=== PATIENT | male | born 1965 | race Caucasian/White ===

== ENCOUNTER 2016-10-17 13:20 | Emergency (ER) | payer MEDICARE ==
[2016-10-17 13:27] VITALS: O2SAT 96
[2016-10-17] MEDS ORDERED: ULTRAM 50 MG PO ONE (13:39)
--- NOTE | 2016-10-17 13:39 | ERPHSYRPT ---
- History of Present Illness Time Seen by Provider: 10/17/16 13:25 Source: patient Exam Limitations: clinical condition Patient Subjective Stated Complaint: PT REPORTS HE WAS EATING WHEN HE BEGAN HAVING RIGHT SIDED DENTAL PAIN MELANIA 30 MIN AGO Triage Nursing Assessment: PT PINK WARM ET DRY-DENTAL CARRIES NOTED-NO SWELLING NOTED Physician History: PATIENT COMPLAINS OF RIGHT UPPER TOOTHACHE WHILE EATING. DENIES FACIAL PAIN, SWELLING, DIFFICULTY SWALLOWING OR BREATHING. Timing/Duration: abrupt onset Severity: moderate ENT Location: dental Prearrival Treatment: no prearrival treatment Modifying Factors: Improves With: other (CHEWING FOOD) Associated Symptoms: tooth pain Allergies/Adverse Reactions: No Known Drug Allergies Allergy (Verified 10/17/16 13:27) Home Medications: Senna 8.6 mg [Senokot 8.6 mg] 17.2 mg PO DAILY 01/11/15 [History] Solifenacin Succinate [Vesicare] 10 mg PO DAILY 01/11/15 [History] Aspirin 81 gm Chew [Baby Aspirin 81 mg Chew] 81 mg PO DAILY 03/20/15 [ History] Metformin HCl 1000 mg [Glucophage 1000 MG] 1,000 mg PO BID 05/17/15 [History] Metoclopramide HCl 10 mg [Reglan 10 MG] 10 mg PO TID 05/17/15 [History] Carvedilol 3.125 mg [Coreg 3.125 MG] 12.5 mg PO BID 07/03/15 [History] Magnesium 250 mg PO DAILY 07/03/15 [History] Nitroglycerin [Nitrostat] 0.4 mg SL Q5MIN PRN MR X 3 PRN 07/03/15 [History] Potassium Gluconate 595 mg PO DAILY 07/03/15 [History] Amlodipine Besylate 5 mg [Norvasc 5 mg] 5 mg PO DAILY 11/17/15 [History] Chlorthalidone 25 mg PO DAILY 11/17/15 [History] Insulin Aspart [Novolog Flexpen] 20 units SQ AC 11/17/15 [History] Ranitidine HCl [Zantac 75] 150 mg PO BID 11/17/15 [History] Esomeprazole Magnesium [Nexium] 40 mg PO DAILY 02/07/16 [History] Insulin Aspart [Novolog Flexpen] 110 unit SQ HS 02/07/16 [History] Hx Tetanus, Diphtheria Vaccination/Date Given: Yes Hx Influenza Vaccination/Date Given: No Hx Pneumococcal Vaccination/Date Given: No Immunizations Up to Date: Yes - Review of Systems Constitutional: No Fever, No Chills Eyes: No Symptoms Ears, Nose, & Throat: Mouth Pain Respiratory: No Symptoms, No Cough, No Dyspnea Cardiac: No Symptoms, No Chest Pain, No Edema, No Syncope Abdominal/Gastrointestinal: No Abdominal Pain, No Nausea, No Vomiting, No Diarrhea Genitourinary Symptoms: No Dysuria Musculoskeletal: No Back Pain, No Neck Pain Skin: No Rash Neurological: No Symptoms, No Dizziness, No Focal Weakness, No Sensory Changes Psychological: No Symptoms Endocrine: No Symptoms All Other Systems: Reviewed and Negative - Past Medical History Pertinent Past Medical History: Yes Neurological History: Seizures, Stroke ENT History: No Pertinent History Cardiac History: Angina, Coronary Artery Disease, High Cholesterol, Hypertension , Myocardial Infarction ([place]), Other Respiratory History: Asthma, Bronchitis, Pneumonia, Sleep Apnea, Other Endocrine Medical History: Diabetes Type II Musculoskeletal History: Arthritis, Fractures GI Medical History: Esophageal Disorder, GERD History: No Pertinent History Psycho-Social History: Anxiety, Depression, Panic Disorder Male Reproductive Disorders: No Pertinent History - Past Surgical History Past Surgical History: Yes Neuro Surgical History: No Pertinent History Cardiac: Cardiac Catheterization, Cardiac Stent Respiratory: No Pertinent History Gastrointestinal: No Pertinent History Genitourinary: No Pertinent History Musculoskeletal: No Pertinent History Male Surgical History: No Pertinent History Other Surgical History: uvula removed - Social History Smoking Status: Former smoker Exposure to second hand smoke: No Alcohol Use: None Drug Use: none Patient Lives Alone: No - Nursing Vital Signs Nursing Vital Signs: Initial Vital Signs Temperature 98.0 F Temperature Source Oral Pulse Rate 69 Respiratory Rate 22 Blood Pressure 122/66 Pain Intensity 6 - Physical Exam General Appearance: no apparent distress, alert Eye Exam: bilateral eye: normal inspection, PERRL, EOMI Ear Exam: bilateral ear: auricle normal, canal normal, TM normal Nasal Exam: normal inspection Throat Exam: pharynx normal, dental tenderness (WITH CARIES), moist mucus membranes, No tonsillar exudate Neurologic Exam: alert, oriented x 3, No motor deficits SpO2 Interpretation: normal SpO2: 96 Oxygen Delivery: Room Air Ordered Tests: Medication Summary Discontinued Medications Generic Name Dose Route Start Last Admin Trade Name Freq PRN Reason Stop Dose Admin Tramadol HCl 50 mg 10/17/16 13:39 Ultram 50 Mg PO 10/17/16 13:40 STAT ONE - Progress Progress: pain not gone completely Progress Note: 10/17/16 13:48 PATIENT GIVEN ULTRAM 50MG ORALLY Counseled pt/family regarding: diagnosis, need for follow-up - Departure Time of Disposition: 14:50 Departure Disposition: Home Clinical Impression: DENTALGIA Condition: Stable Critical Care Time: No Additional Instructions: ANTIBIOTIC AUGMENTIN 875MG TWICE DAILY FOR 10 DAYS. ULTRAM 50MG EVERY 4 HOURS FOR PAIN NEEDED. FOLLOWUP WITH YOUR DENTIST FOR EVALUATION. Prescriptions: Tramadol HCl 50 mg [Ultram 50 mg] 50 mg PO Q4HPRN PRN #20 tablet PRN Reason: Pain Amox Tr/Potass Clav. 875 mg [Augmentin 875-125 Tablet] 875 mg PO BID #20 tablet
[2016-10-17] MEDS ORDERED: ULTRAM 50 MG ONE (13:41)
[2016-10-17 14:02] VITALS: BP 120/67; PULSE 70
== END 2016-10-17 14:01 | disposition home or self-care (01) ==
LOC: ED 13:20
DX: K08.89 Other specified disorders of teeth and supporting structures (principal)
CPT/HCPCS: 99282

== ENCOUNTER 2016-12-11 14:39 | Emergency (ER) | payer MEDICARE ==
[2016-12-11] MEDS ORDERED: BABY ASPIRIN 81 MG CHEW PO ONE (14:45)
[2016-12-11] MEDS ORDERED: Sodium Chloride 0.9% 1000 ML 1,000 ML IV SCH (14:45)
[2016-12-11] MEDS ORDERED: NITRO-BID 2% UD PACKETS TOP ONE (14:45)
[2016-12-11] MEDS ORDERED: Sodium Chloride 0.9% 1000 ML 1,000 ML ONE (14:49)
[2016-12-11] MEDS ORDERED: BABY ASPIRIN 81 MG CHEW ONE (14:49)
[2016-12-11] MEDS ORDERED: NITRO-BID 2% UD PACKETS ONE (14:49)
--- NOTE | 2016-12-11 14:52 | ERPHSYRPT ---
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; he is a diabetic but doesn't smoke; no other associated symptoms; no travel; no alcohol or drugs; rates it Timing/Duration: today (rate), hour(s) (s i1t as/ a 26-7), sudden Activities at Onset: emotional stress Quality: tightness Location: substernal Chest Pain Radiation: no radiation Severity of Pain-Max: moderate Severity of Pain-Current: moderate Modifying Factors: Improves With: nothing Associated Symptoms: denies symptoms Prior Chest Pain/Cardiac Workup: no prior chest pain Nitro Today/Relief: no nitro taken today, provided by ED Aspirin Treatment Today: no aspirin today, provided by ED Allergies/Adverse Reactions: No Known Drug Allergies Allergy (Verified 12/11/16 14:47) Home Medications: Solifenacin Succinate [Vesicare] 10 mg PO DAILY 01/11/15 [History] Aspirin 81 gm Chew [Baby Aspirin 81 mg Chew] 81 mg PO DAILY 03/20/15 [ History] Metformin HCl 1000 mg [Glucophage 1000 MG] 1,000 mg PO BID 05/17/15 [History] Metoclopramide HCl 10 mg [Reglan 10 MG] 10 mg PO TID 05/17/15 [History] Carvedilol 3.125 mg [Coreg 3.125 MG] 25 mg PO BID 07/03/15 [History] Magnesium 400 mg PO DAILY 07/03/15 [History] Nitroglycerin [Nitrostat] 0.4 mg SL Q5MIN PRN MR X 3 PRN 07/03/15 [History] Amlodipine Besylate 5 mg [Norvasc 5 mg] 10 mg PO DAILY 11/17/15 [History] Dexlansoprazole [Dexilant] 60 mg PO DAILY 12/11/16 [History] Empagliflozin [Jardiance] 25 mg PO DAILY 12/11/16 [History] Hydroxyzine HCl 25 mg [Atarax 25 mg] 25 mg PO HS 12/11/16 [History] Insulin Aspart [NovoLOG Insulin] 1 unit SQ UD 12/11/16 [History] Linaclotide [Linzess] 290 mcg PO DAILY 12/11/16 [History] Lisinopril [Zestril] 40 mg PO DAILY 12/11/16 [History] Hx Tetanus, Diphtheria Vaccination/Date Given: Yes Hx Influenza Vaccination/Date Given: No Hx Pneumococcal Vaccination/Date Given: No - Review of Systems Constitutional: No Symptoms Eyes: No Symptoms Ears, Nose, & Throat: No Symptoms Respiratory: No Cough, No Dyspnea, No Wheezing Cardiac: Chest Pain, No Edema, No Palpitations, No Syncope Abdominal/Gastrointestinal: No Abdominal Pain, No Nausea, No Vomiting, No Diarrhea Genitourinary Symptoms: No Symptoms Musculoskeletal: No Symptoms Skin: No Symptoms Neurological: No Symptoms Psychological: No Symptoms Endocrine: No Symptoms Hematologic/Lymphatic: No Symptoms Immunological/Allergic: No Symptoms - Past Medical History Pertinent Past Medical History: Yes Neurological History: Seizures, Stroke ENT History: No Pertinent History Cardiac History: Angina, Coronary Artery Disease, High Cholesterol, Hypertension , Myocardial Infarction ([place]), Other Respiratory History: Asthma, Bronchitis, Pneumonia, Sleep Apnea, Other Endocrine Medical History: Diabetes Type II Musculoskeletal History: Arthritis, Fractures GI Medical History: Esophageal Disorder, GERD History: No Pertinent History Psycho-Social History: Anxiety, Depression, Panic Disorder Male Reproductive Disorders: No Pertinent History - Past Surgical History Past Surgical History: Yes Neuro Surgical History: No Pertinent History Cardiac: Cardiac Catheterization, Cardiac Stent Respiratory: No Pertinent History Gastrointestinal: No Pertinent History Genitourinary: No Pertinent History Musculoskeletal: No Pertinent History Male Surgical History: No Pertinent History Other Surgical History: uvula removed - Social History Smoking Status: Former smoker Exposure to second hand smoke: No Alcohol Use: None Drug Use: none Patient Lives Alone: No Significant Family History: heart disease, diabetes, hypertension - Physical Exam General Appearance: moderate distress, alert, obese Eye Exam: PERRL/EOMI, eyes nml inspection, other (fundi benign without papilledema), No photophobia Ears, Nose, Throat Exam: normal ENT inspection, TMs normal, pharynx normal, moist mucous membranes Neck Exam: normal inspection, non-tender, supple, full range of motion, No meningismus, No carotid bruit, No JVD Respiratory Exam: normal breath sounds, lungs clear, airway intact, No chest tenderness, No respiratory distress, No crackles/rales, No rhonchi, No wheezing Cardiovascular Exam: regular rate/rhythm, normal heart sounds, normal peripheral pulses, capillary refill 2-3 sec, No murmur Gastrointestinal/Abdomen Exam: soft, normal bowel sounds, No tenderness, No distention, No guarding, No pulsatile mass, No rebound, No organomegaly Rectal Exam: deferred Back Exam: normal inspection, normal range of motion, No CVA tenderness Extremity Exam: normal inspection, normal range of motion, No prince's sign, No pedal edema Neurologic Exam: alert, oriented x 3, cooperative, 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, normal mood/affect, nml cerebellar function, nml station & gait Skin Exam: normal color, warm, dry, No rash, No petechiae, No jaundice, No cyanosis SpO2 Interpretation: normal SpO2: 99 Oxygen Delivery: Room Air - Course Nursing assessment & vital signs reviewed: Yes EKG Interpreted by Me: RATE (69), Sinus Rhythm, NORMAL AXIS, NORMAL INTERVALS, NORMAL QRS, NORMAL ST-T, Other (unchanged when compared to EKG from 11/17/2015) - Radiology Exams Chest X-ray Interpretation: Reviewed by me, Teleradiologist Report, Negative, No Pneumonia, No Pneumothorax, Nml Heart Size, No Infiltrates, Nml Mediastinum Ordered Tests: Active Orders 24 hr Category Date Time Status Forepart Laster STAT Care 12/11/16 14:45 Active EKG-ER Only STAT Care 12/11/16 15:01 Active IV Insertion STAT Care 12/11/16 14:45 Active Pulse Oximetry (ED) STAT Care 12/11/16 14:45 Active CHEST 1 VIEW (PORTABLE) Stat Exams 12/11/16 14:45 Completed CBC W DIFF Stat Lab 12/11/16 14:57 Completed CMP Stat Lab 12/11/16 14:57 Completed NT PRO BNP Stat Lab 12/11/16 14:57 Completed PROTIME WITH INR Stat Lab 12/11/16 14:57 Completed TROPONIN Q3H Lab 12/11/16 14:45 Completed TROPONIN Q3H Lab 12/11/16 17:45 Ordered TROPONIN Q3H Lab 12/11/16 20:45 Ordered TROPONIN Q3H Lab 12/11/16 23:45 Ordered TROPONIN Q3H Lab 12/12/16 02:45 Ordered Medication Summary Generic Name Dose Route Start Last Admin Trade Name Uriel PRN Reason Stop Dose Admin Sodium Chloride 1,000 mls @ 50 mls/hr 12/11/16 14:45 12/11/16 14:55 Sodium Chloride 0.9% 1000 Ml IV 01/10/17 14:44 50 mls/hr .Q20H LACY Administration Discontinued Medications Generic Name Dose Route Start Last Admin Trade Name Uriel PRN Reason Stop Dose Admin Aspirin 324 mg 12/11/16 14:45 12/11/16 14:55 Baby Aspirin 81 Mg Chew PO 12/11/16 14:46 324 mg STAT ONE Administration Aspirin Confirm 12/11/16 14:49 Baby Aspirin 81 Mg Chew Administered 12/11/16 14:50 Dose 324 mg .ROUTE .STK-MED ONE Sodium Chloride Confirm 12/11/16 14:49 Sodium Chloride 0.9% 1000 Ml Administered 12/11/16 14:50 Dose 1,000 mls @ ud .ROUTE .STK-MED ONE Nitroglycerin 1 gm 12/11/16 14:45 12/11/16 14:55 Nitro-Bid 2% Ud Packets TOP 12/11/16 14:46 1 gm STAT ONE Administration Nitroglycerin Confirm 12/11/16 14:49 Nitro-Bid 2% Ud Packets Administered 12/11/16 14:50 Dose 1 gm .ROUTE .STK-MED ONE Lab/Rad Data: Laboratory Result Diagrams 12/11/16 14:57 12/11/16 14:57 Laboratory Results 12/11/16 12/11/16 12/11/16 Range/Units 14:57 14:57 14:57 WBC 8.2 (4.0-10.5) K/mm3 RBC 5.23 (4.1-5.6) M/mm3 Hgb 14.6 (12.5-18.0) gm/dl Hct 43.3 (42-50) % MCV 82.8 (78-100) fl MCH 27.9 (26-32) pg MCHC 33.7 (32-36) g/dl RDW 14.7 H (11.5-14.0) % Plt Count 227 (150-450) K/mm3 MPV 9.9 H (6-9.5) fl Gran % 65.3 (36.0-66.0) % Lymphocytes % 24.1 (24.0-44.0) % Monocytes % 8.9 (0.0-12.0) % Eosinophils % 1.2 (0.00-5.0) % Basophils % 0.5 (0.0-0.4) % Basophils # 0.04 (0-0.4) INR 1.28 (0.8-3.0) Sodium 140 (136-145) mEq/L Potassium 4.2 (3.5-5.1) mEq/L Chloride 104 (98-107) mEq/L Carbon Dioxide 23.1 (21-32) mEq/L Anion Gap 17.0 H (5-15) MEQ/L BUN 18 (9-20) mg/dL Creatinine 1.01 (0.55-1.30) mg/dl Estimated GFR > 60 ML/MIN Glucose 109 (70-110) MG/DL Calcium 9.5 (8.5-10.1) mg/dL Total Bilirubin 0.2 (0.2-1.0) mg/dL AST 16 (15-37) U/L ALT 29 (12-78) U/L Alkaline Phosphatase 52 (46-116) U/L Troponin I (0.000-0.056) ng/ml NT-Pro-B Natriuret Pep 75 (0-125) pg/ml Serum Total Protein 7.7 (6.4-8.2) gm/dL Albumin 4.1 (3.4-5.0) g/dL 12/11/16 Range/Units 14:45 WBC (4.0-10.5) K/mm3 RBC (4.1-5.6) M/mm3 Hgb (12.5-18.0) gm/dl Hct (42-50) % MCV (78-100) fl MCH (26-32) pg MCHC (32-36) g/dl RDW (11.5-14.0) % Plt Count (150-450) K/mm3 MPV (6-9.5) fl Gran % (36.0-66.0) % Lymphocytes % (24.0-44.0) % Monocytes % (0.0-12.0) % Eosinophils % (0.00-5.0) % Basophils % (0.0-0.4) % Basophils # (0-0.4) INR (0.8-3.0) Sodium (136-145) mEq/L Potassium (3.5-5.1) mEq/L Chloride (98-107) mEq/L Carbon Dioxide (21-32) mEq/L Anion Gap (5-15) MEQ/L BUN (9-20) mg/dL Creatinine (0.55-1.30) mg/dl Estimated GFR ML/MIN Glucose (70-110) MG/DL Calcium (8.5-10.1) mg/dL Total Bilirubin (0.2-1.0) mg/dL AST (15-37) U/L ALT (12-78) U/L Alkaline Phosphatase (46-116) U/L Troponin I < 0.017 (0.000-0.056) ng/ml NT-Pro-B Natriuret Pep (0-125) pg/ml Serum Total Protein (6.4-8.2) gm/dL Albumin (3.4-5.0) g/dL reviewed - Progress Progress: improved (after time), re-examined (After medications) Air Movement: good Progress Note: 12/11/16 14:52 IV started; EKG WNL; aspirin and nitroglycerin given; vital signs and pulse ox okay; labs and x-ray pending; we'll monitor and recheck 12/11/16 15:47 rechecked adn feeling better; no complaints; treatment plan and d/c instructions given Blood Culture(s) Obtained: No Antibiotics given: No Counseled pt/family regarding: lab results, diagnosis, need for follow-up, rad results - Departure Time of Disposition: 15:48 Departure Disposition: Home Clinical Impression: Chest pain Condition: Good Critical Care Time: No Referrals: EDUARDO ROMANO [Primary Care Provider] - Instructions: Atypical Chest Pain Additional Instructions: Follow-up with family doctor as directed. Call for appointment. Return if any problems. If you smoke please stop. Call or follow up with your family doctor for assistance if you need it to stop. Please wear your seatbelt when driving. Have a nice day. Thank you for allowing us to participate in your care today. :o) Dr Juan Luis Tobin
--- NOTE | 2016-12-11 15:08 | XRAY ---
Indication: Chest pain. Comparison: November 17, 2015. Portable chest unchanged again with scattered calcified granulomas. No focal infiltrate, consolidation, or large effusion. Heart is not enlarged. Bony thorax intact again with mild degenerative changes. Impression: Stable nonacute chest with chronic features.
[2016-12-11 15:13] LABS: INR 1.28 (0.8-3.0); PROTIME 14.2 SECONDS (8.83-12.87)
[2016-12-11 15:18] LABS: BASOPHIL % 0.5 % (0.0-0.4); Eosinophil % 1.2 % (0.00-5.0); Granulocytes % 65.3 % (36.0-66.0); Lymphocytes % 24.1 % (24.0-44.0); Mean Cell Volume 82.8 fl (78-100); Mean Corpuscular Hemoglobin 27.9 pg (26-32); Mean Platelet Volume 9.9 fl (6-9.5); Monocytes % 8.9 % (0.0-12.0); Platelet Count 227 K/mm3 (150-450); Red Blood Count 5.23 M/mm3 (4.1-5.6); Red Cell Distribution Width 14.7 % (11.5-14.0); White Blood Count 8.2 K/mm3 (4.0-10.5)
[2016-12-11 15:27] LABS: ALBUMIN 4.1 g/dL (3.4-5.0); ALKALINE PHOSPHATASE 52 U/L (46-116); BILIRUBIN,TOTAL 0.2 mg/dL (0.2-1.0); BLOOD UREA NITROGEN 18 mg/dL (9-20); CHLORIDE 104 mEq/L (98-107); Carbon Dioxide 23.1 mEq/L (21-32); Glucose 109 MG/DL (70-110); Potassium 4.2 mEq/L (3.5-5.1); SGOT/AST 16 U/L (15-37); SGPT/ALT 29 U/L (12-78); SODIUM 140 mEq/L (136-145); Total Protein 7.7 gm/dL (6.4-8.2)
[2016-12-11 15:55] VITALS: BP 116/67; PULSE 69; O2SAT 93
== END 2016-12-11 15:55 | disposition home or self-care (01) ==
LOC: ED 14:39
DX: R07.89 Other chest pain (principal); E11.9 Type 2 diabetes mellitus without complications; I25.10 Atherosclerotic heart disease of native coronary artery without angina pectoris; E78.00 Pure hypercholesterolemia, unspecified; I10 Essential (primary) hypertension; I25.2 Old myocardial infarction; Z79.899 Other long term (current) drug therapy; Z79.84 Long term (current) use of oral hypoglycemic drugs; Z79.4 Long term (current) use of insulin
CPT/HCPCS: 93041; 99284; 36000; 96360; 96361; 93005; 85610; 36415; 83880; 85025; 80053; 84484; 71010; A9270 ×2

== ENCOUNTER 2017-01-13 15:09 | Emergency (ER) | payer MEDICARE ==
[2017-01-13 15:20] VITALS: BP 111/54; PULSE 73; O2SAT 94
[2017-01-13] MEDS ORDERED: Sodium Chloride 0.9% 1000 ML 1,000 ML IV STA (15:25)
[2017-01-13] MEDS ORDERED: Sodium Chloride 0.9% 1000 ML 1,000 ML ONE (15:34)
[2017-01-13 15:41] LABS: BASOPHIL % 0.4 % (0.0-0.4); COMPLETE URINE MICROSCOPIC? YES; Collection Type VOID; Granulocytes % 62.3 % (36.0-66.0); Lymphocytes % 24.4 % (24.0-44.0); Mean Cell Volume 82.8 fl (78-100); Mean Corpuscular Hemoglobin 27.9 pg (26-32); Mean Platelet Volume 9.4 fl (6-9.5); Monocytes % 10.9 % (0.0-12.0); Ph 5.5 (5-6); Platelet Count 221 K/mm3 (150-450); Red Blood Count 5.16 M/mm3 (4.1-5.6); Red Cell Distribution Width 14.6 % (11.5-14.0); White Blood Count 7.2 K/mm3 (4.0-10.5)
[2017-01-13 15:51] LABS: Bacteria RARE /HPF (NEGATIVE); Epithelial Cells RARE /HPF (FEW); WBC 0-2 /HPF (0-5)
[2017-01-13 15:55] LABS: ALBUMIN 4.1 g/dL (3.4-5.0); ALKALINE PHOSPHATASE 60 U/L (46-116); ANION GAP 14.3 MEQ/L (5-15); BILIRUBIN,TOTAL 0.3 mg/dL (0.2-1.0); BLOOD UREA NITROGEN 17 mg/dL (9-20); CHLORIDE 107 mEq/L (98-107); Carbon Dioxide 25.9 mEq/L (21-32); Glucose 133 MG/DL (70-110); MAGNESIUM 1.9 mg/dL (1.8-2.4); Potassium 4.1 mEq/L (3.5-5.1); SGOT/AST 18 U/L (15-37); SGPT/ALT 29 U/L (12-78); SODIUM 143 mEq/L (136-145); Total Protein 7.6 gm/dL (6.4-8.2)
--- NOTE | 2017-01-13 16:03 | ERPHSYRPT ---
- History of Present Illness Time Seen by Provider: 01/13/17 15:59 Source: patient Exam Limitations: no limitations Patient Subjective Stated Complaint: dizziness since 0900 with movement Triage Nursing Assessment: dizziness since he got up this morning with change of position. c/o headache at base of head for past 2 hrs. sugars have been normal. c/o n/v/d. pupils mejia. bs 141. Physician History: dizziness since 0900 with movement. dizziness since he got up this morning with change of position. c/o headache at base of head for past 2 hrs. Prior Episodes: single episode today Timing/Duration: today Precipitating Factors: nausea (dizzy when moves eyes, eye hurts with lateral movements. No fever, chills, nausea vomiting), other (working outside today) Loss of Consciousness: no loss of consciousness Allergies/Adverse Reactions: No Known Drug Allergies Allergy (Verified 01/13/17 15:20) Home Medications: Solifenacin Succinate [Vesicare] 10 mg PO DAILY 01/11/15 [History] Metformin HCl 1000 mg [Glucophage 1000 MG] 1,000 mg PO BID 05/17/15 [History] Metoclopramide HCl 10 mg [Reglan 10 MG] 10 mg PO TID 05/17/15 [History] Carvedilol 3.125 mg [Coreg 3.125 MG] 25 mg PO BID 07/03/15 [History] Magnesium 400 mg PO BID 07/03/15 [History] Nitroglycerin [Nitrostat] 0.4 mg SL Q5MIN PRN MR X 3 PRN 07/03/15 [History] Amlodipine Besylate 5 mg [Norvasc 5 mg] 10 mg PO DAILY 11/17/15 [History] Dexlansoprazole [Dexilant] 60 mg PO DAILY 12/11/16 [History] Empagliflozin [Jardiance] 25 mg PO DAILY 12/11/16 [History] Hydroxyzine HCl 25 mg [Atarax 25 mg] 25 mg PO HS 12/11/16 [History] Insulin Aspart [NovoLOG Insulin] 1 unit SQ UD 12/11/16 [History] Linaclotide [Linzess] 290 mcg PO DAILY 12/11/16 [History] Lisinopril [Zestril] 40 mg PO DAILY 12/11/16 [History] Cetirizine HCl [Zyrtec] 10 mg PO DAILY 01/13/17 [History] Dulaglutide [Trulicity] 0.75 mg SQ UD 01/13/17 [History] Liraglutide [Victoza 2-Vasile] 1.2 mg SQ DAILY 01/13/17 [History] Hx Tetanus, Diphtheria Vaccination/Date Given: Yes Hx Influenza Vaccination/Date Given: No Hx Pneumococcal Vaccination/Date Given: No Immunizations Up to Date: Yes - Past Medical History Pertinent Past Medical History: Yes Neurological History: Seizures, Stroke ENT History: No Pertinent History Cardiac History: Angina, Coronary Artery Disease, High Cholesterol, Hypertension , Myocardial Infarction ([place]), Other Respiratory History: Asthma, Bronchitis, Pneumonia, Sleep Apnea, Other Endocrine Medical History: Diabetes Type II Musculoskeletal History: Arthritis, Fractures GI Medical History: Esophageal Disorder, GERD History: No Pertinent History Psycho-Social History: Anxiety, Depression, Panic Disorder Male Reproductive Disorders: No Pertinent History - Past Surgical History Past Surgical History: Yes Neuro Surgical History: No Pertinent History Cardiac: Cardiac Catheterization, Cardiac Stent Respiratory: No Pertinent History Gastrointestinal: No Pertinent History Genitourinary: No Pertinent History Musculoskeletal: No Pertinent History Male Surgical History: No Pertinent History Other Surgical History: uvula removed - Social History Smoking Status: Never smoker Exposure to second hand smoke: Yes Alcohol Use: None Drug Use: none Patient Lives Alone: Yes Significant Family History: heart disease, diabetes, hypertension - Review of Systems Constitutional: No Fever, No Chills, No Fatigue, No Lethargy, No Night Sweats, No Weakness, No Weight Loss Eyes: No Symptoms Ears, Nose, & Throat: No Symptoms, No Ear Pain, No Ear Discharge Respiratory: No Cough, No Dyspnea Cardiac: No Chest Pain, No Edema, No Syncope Abdominal/Gastrointestinal: No Abdominal Pain, No Nausea, No Vomiting, No Diarrhea Genitourinary Symptoms: No Dysuria Musculoskeletal: No Back Pain, No Neck Pain Skin: No Rash Neurological: Dizziness, No Focal Weakness, No Lethargy, No Paralysis, No Parasthesia, No Seizure, No Sensory Changes Psychological: No Symptoms Endocrine: No Symptoms All Other Systems: Reviewed and Negative Physical Exam - Nursing Vital Signs Nursing Vital Signs: Initial Vital Signs Temperature 97.9 F Temperature Source Oral Pulse Rate 73 Respiratory Rate 18 Blood Pressure [] 111/54 Pain Intensity 4 - [place] Coma Scale Best Eye Response ([place]): (4) open spontaneously Best Verbal Response (Elena): (5) oriented Best Motor Response ([place]): (6) obeys commands Elena Total: 15 - Physical Exam General Appearance: no apparent distress, alert Eye Exam: bilateral eye: PERRL, EOMI Ears, Nose, Throat Exam: normal ENT inspection, pharynx normal, moist mucous membranes Neck Exam: normal inspection, non-tender, supple, full range of motion Respiratory: normal breath sounds, lungs clear, No chest tenderness, No respiratory distress Cardiovascular: regular rate/rhythm, capillary refill <2 sec, No murmur, No pulse deficit Gastrointestinal: soft, No tenderness, No distention, No mass Back Exam: normal inspection, normal range of motion, No CVA tenderness, No vertebral tenderness Extremity Exam: normal inspection, normal range of motion, pelvis stable, No tenderness Mental Status: alert, oriented x 3, 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 Exam: normal speech, PERRL, No facial droop Coordination/Gait: normal finger to nose Motor/Sensory: no motor deficit, no sensory deficit, no pronator drift Skin Exam: normal color, warm, dry, No rash SpO2: 94 Oxygen Delivery: Room Air - Course Nursing assessment & vital signs reviewed: Yes EKG Interpreted by Me: Sinus Rhythm - Radiology Exams Chest X-ray Interpretation: Reviewed by me, Negative Ordered Tests: Active Orders 24 hr Category Date Time Status ACCUCHECK [Accucheck] STAT Care 01/13/17 15:33 Active 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 Care 01/13/17 15:25 Active EKG-ER Only STAT Care 01/13/17 15:25 Active IV Insertion STAT Care 01/13/17 15:32 Active Orthostatic Vital Signs STAT Care 01/13/17 15:33 Active CBC W DIFF Stat Lab 01/13/17 15:35 Completed CMP Stat Lab 01/13/17 15:35 Received Lactic Acid Urgent Lab 01/13/17 15:35 Completed MAGNESIUM Stat Lab 01/13/17 15:35 Received TROPONIN Stat Lab 01/13/17 15:35 Received UA W/ MICROSCOPIC Stat Lab 01/13/17 15:35 Completed Urine Triage Profile Stat Lab 01/13/17 15:35 Completed Medication Summary Generic Name Dose Route Start Last Admin Trade Name Freq PRN Reason Stop Dose Admin Sodium Chloride 1,000 mls @ 999 mls/hr 01/13/17 15:25 01/13/17 15:36 Sodium Chloride 0.9% 1000 Ml IV 01/13/17 16:25 999 mls/hr .Q1H1M STA Administration Discontinued Medications Generic Name Dose Route Start Last Admin Trade Name Uriel PRN Reason Stop Dose Admin Sodium Chloride Confirm 01/13/17 15:34 Sodium Chloride 0.9% 1000 Ml Administered 01/13/17 15:35 Dose 1,000 mls @ ud .ROUTE .STK-MED ONE Lab/Rad Data: Laboratory Result Diagrams 01/13/17 15:35 Laboratory Results 01/13/17 01/13/17 01/13/17 Range/Units 15:35 15:35 15:35 WBC 7.2 (4.0-10.5) K/mm3 RBC 5.16 (4.1-5.6) M/mm3 Hgb 14.4 (12.5-18.0) gm/dl Hct 42.7 (42-50) % MCV 82.8 (78-100) fl MCH 27.9 (26-32) pg MCHC 33.7 (32-36) g/dl RDW 14.6 H (11.5-14.0) % Plt Count 221 (150-450) K/mm3 MPV 9.4 (6-9.5) fl Gran % 62.3 (36.0-66.0) % Lymphocytes % 24.4 (24.0-44.0) % Monocytes % 10.9 (0.0-12.0) % Eosinophils % 2.0 (0.00-5.0) % Basophils % 0.4 (0.0-0.4) % Basophils # 0.03 (0-0.4) Lactic Acid 1.6 (0.4-2.0) Ur Collection Type Urine Color (YELLOW) Urine Appearance (CLEAR) Urine pH (5-6) Ur Specific [place] (1.005-1.025) Urine Protein (Negative) Urine Glucose (UA) (NEGATIVE) mg/dL Urine Ketones (NEGATIVE) Urine Nitrite (NEGATIVE) Urine Bilirubin (NEGATIVE) Urine Urobilinogen (0-1) mg/dL Urine WBC (Auto) (NEGATIVE) Urine RBC (Auto) (0-5) Bonilla/ul Urine Microscopic WBC (0-5) /HPF Ur Epithelial Cells (FEW) /HPF Urine Bacteria (NEGATIVE) /HPF Urine Opiates Level NEG. (NEGATIVE) Ur Methadone NEG. (NEGATIVE) Urine Barbiturates NEG. (NEGATIVE) Ur Phencyclidine (PCP) NEG. (NEGATIVE) Urine Amphetamine NEG. (NEGATIVE) U Benzodiazepine Level NEG. (NEGATIVE) Urine Cocaine NEG. (NEGATIVE) Urine Marijuana (THC) NEG. (NEGATIVE) Specimen Received 01/13/17 Range/Units 15:35 WBC (4.0-10.5) K/mm3 RBC (4.1-5.6) M/mm3 Hgb (12.5-18.0) gm/dl Hct (42-50) % MCV (78-100) fl MCH (26-32) pg MCHC (32-36) g/dl RDW (11.5-14.0) % Plt Count (150-450) K/mm3 MPV (6-9.5) fl Gran % (36.0-66.0) % Lymphocytes % (24.0-44.0) % Monocytes % (0.0-12.0) % Eosinophils % (0.00-5.0) % Basophils % (0.0-0.4) % Basophils # (0-0.4) Lactic Acid (0.4-2.0) Ur Collection Type VOID Urine Color YELLOW (YELLOW) Urine Appearance CLEAR (CLEAR) Urine pH 5.5 (5-6) Ur Specific [place] 1.010 (1.005-1.025) Urine Protein TRACE (Negative) Urine Glucose (UA) 500 (NEGATIVE) mg/dL Urine Ketones SMALL-15 (NEGATIVE) Urine Nitrite NEGATIVE (NEGATIVE) Urine Bilirubin NEGATIVE (NEGATIVE) Urine Urobilinogen 0.2 (0-1) mg/dL Urine WBC (Auto) NEGATIVE (NEGATIVE) Urine RBC (Auto) NEGATIVE (0-5) Bonilla/ul Urine Microscopic WBC 0-2 (0-5) /HPF Ur Epithelial Cells RARE (FEW) /HPF Urine Bacteria RARE (NEGATIVE) /HPF Urine Opiates Level (NEGATIVE) Ur Methadone (NEGATIVE) Urine Barbiturates (NEGATIVE) Ur Phencyclidine (PCP) (NEGATIVE) Urine Amphetamine (NEGATIVE) U Benzodiazepine Level (NEGATIVE) Urine Cocaine (NEGATIVE) Urine Marijuana (THC) (NEGATIVE) Specimen Received 4/9/17 1530 - Progress Progress: improved Counseled pt/family regarding: lab results, diagnosis, need for follow-up, rad results - Departure Time of Disposition: 16:07 Departure Disposition: Home Clinical Impression: Labile hypertension Vertigo of central origin Qualifiers: Laterality: unspecified laterality Qualified Code(s): H81.49 - Vertigo of central origin, unspecified ear Diabetes Qualifiers: Diabetes mellitus type: type 2 Diabetes mellitus complication status: without complication Diabetes mellitus half-way insulin use: unspecified manager terminal insulin use status Qualified Code(s): E11.9 - Type 2 diabetes mellitus without complications Condition: Stable Critical Care Time: Yes Critical Care Time(excluding separately billable procedures): 30-74 minutes Referrals: EDUARDO ROMANO [Primary Care Provider] - Instructions: Vertigo Additional Instructions: Please follow the instructions given to you. Please take your medication as prescribed if given. If symptoms recur or get worse, come back to the emergency room if you cannot reach your primary care physician, or call your primary care physician for an appointment. Again if your symptoms get worse, come back to the emergency room. Thanks for visiting emergency room, and let us take care of you. Prescriptions: Meclizine HCl 25 mg [Antivert 25 mg] 25 mg PO TIDPRN #15 tablet
[2017-01-13 16:09] LABS: TROPONIN < 0.017 ng/ml (0.000-0.056)
== END 2017-01-13 16:55 | disposition home or self-care (01) ==
LOC: ED 15:09
DX: H81.49 Vertigo of central origin, unspecified ear (principal); E11.9 Type 2 diabetes mellitus without complications; R51 Headache; R11.0 Nausea; Z79.4 Long term (current) use of insulin; Z79.899 Other long term (current) drug therapy
CPT/HCPCS: 36000; 36415; 80053; 80307; 81000; 82962; 83605; 83735; 84484; 85025; 93005; 93041; 96360; 99284

== ENCOUNTER 2017-02-23 15:13 | Emergency (ER) | payer MEDICARE ==
--- NOTE | 2017-02-23 15:28 | ERPHSYRPT ---
- History of Present Illness Time Seen by Provider: 02/23/17 15:22 Source: patient Exam Limitations: no limitations Patient Subjective Stated Complaint: lt hip injury post fall at midnight last night Triage Nursing Assessment: states fell at midnight last night and landed on lt hip. ambulated into er without limp. gait steady. no swelling or bruising noted. Physician History: The patient is a 51-year-old male complaining of lower left back and hip pain since falling from a standing position at midnight last night. He said he stood up from a chair took 2 steps and his right leg gave out. He fell on a toolbox on his right side. But his left lower back and hip are hurting. He did not lose consciousness. His past medical history is significant for hypertension, back pain, high cholesterol, sleep apnea, and diabetes. Occurred: yesterday Reason for Fall: lost balance, fell from standing pos Injuries/Pain Location: back, pelvis Loss of Consciousness: no loss of consciousness Quality: aching Severity of Pain-Max: moderate Severity of Pain-Current: moderate Modifying Factors: Improves With: nothing Associated Symptoms (Fall): back pain Allergies/Adverse Reactions: No Known Drug Allergies Allergy (Verified 02/23/17 15:19) Home Medications: Metformin HCl 1000 mg [Glucophage 1000 MG] 1,000 mg PO BID 05/17/15 [History] Magnesium 250 mg PO DAILY 07/03/15 [History] Nitroglycerin [Nitrostat] 0.4 mg SL Q5MIN PRN MR X 3 PRN 07/03/15 [History] Amlodipine Besylate 5 mg [Norvasc 5 mg] 10 mg PO DAILY 11/17/15 [History] Dexlansoprazole [Dexilant] 60 mg PO DAILY 12/11/16 [History] Lisinopril [Zestril] 40 mg PO DAILY 12/11/16 [History] Dapagliflozin Propanediol [Farxiga] 10 mg PO DAILY 02/08/17 [History] Empagliflozin [Jardiance] 10 mg PO DAILY 02/08/17 [History] Hydrocodone/APAP 10/325 mg [[place] 10/325 MG Tablet] 1 tab PO Q6H PRN PRN 02/08/17 [History] Ketoconazole Cream [Nizoral CREAM] 60 gm TP .UNKNOWN 02/08/17 [History] Multivitamin/Iron/Folic Acid [Centrum Complete Multivit Tab] 1 each PO DAILY 02/20 [History] Hx Tetanus, Diphtheria Vaccination/Date Given: Yes Hx Influenza Vaccination/Date Given: No Hx Pneumococcal Vaccination/Date Given: No Immunizations Up to Date: Yes - Review of Systems Constitutional: No Fever, No Chills Eyes: No Symptoms Ears, Nose, & Throat: No Symptoms Respiratory: No Cough, No Dyspnea Cardiac: No Chest Pain, No Edema, No Syncope Abdominal/Gastrointestinal: No Abdominal Pain, No Nausea, No Vomiting, No Diarrhea Genitourinary Symptoms: No Dysuria Musculoskeletal: Back Pain, Fall, Injury Skin: No Rash Neurological: No Dizziness, No Focal Weakness, No Sensory Changes Psychological: No Symptoms Endocrine: No Symptoms Hematologic/Lymphatic: No Symptoms Immunological/Allergic: No Symptoms All Other Systems: Reviewed and Negative - Past Medical History Pertinent Past Medical History: Yes Neurological History: Seizures, Stroke ENT History: No Pertinent History Cardiac History: Angina, Coronary Artery Disease, High Cholesterol, Hypertension , Myocardial Infarction ([place]), Other Respiratory History: Asthma, Bronchitis, Pneumonia, Sleep Apnea, Other Endocrine Medical History: Diabetes Type II Musculoskeletal History: Arthritis, Fractures GI Medical History: Esophageal Disorder, GERD History: No Pertinent History Psycho-Social History: Anxiety, Depression, Panic Disorder Male Reproductive Disorders: No Pertinent History - Past Surgical History Past Surgical History: Yes Neuro Surgical History: No Pertinent History Cardiac: Cardiac Catheterization, Cardiac Stent Respiratory: No Pertinent History Gastrointestinal: No Pertinent History Genitourinary: No Pertinent History Musculoskeletal: No Pertinent History Male Surgical History: No Pertinent History Other Surgical History: uvula removed - Social History Smoking Status: Never smoker Exposure to second hand smoke: Yes Alcohol Use: None Drug Use: none Patient Lives Alone: No Significant Family History: heart disease, diabetes, hypertension - Nursing Vital Signs Nursing Vital Signs: Initial Vital Signs Temperature 97.8 F Temperature Source Oral Pulse Rate 63 Respiratory Rate 18 Blood Pressure [] 136/53 Pain Intensity 3 - [place] Coma Score Best Eye Response (Elena): (4) open spontaneously Best Verbal Response (Elena): (5) oriented Best Motor Response (Elena): (6) obeys commands Elena Total: 15 - Physical Exam General Appearance: no apparent distress, alert Head Injury: no evidence of injury Eye Exam: PERRL/EOMI ENT Exam: airway nml Neck Exam: normal inspection, No tenderness Respiratory/Chest Exam: normal breath sounds, No chest tenderness, No respiratory distress Cardiovascular Exam: normal heart sounds, regular rate/rhythm Gastrointestinal Exam: soft, No tenderness, No distention, No guarding, No ecchymosis Back Exam: other (Palpation of the left lumbar region and left sacrum is significant for mild tenderness. There is no tenderness to palpation of the left hip.) Extremity Exam: normal inspection, normal range of motion, pelvis stable, No deformities Neurologic Exam: alert, oriented x 3, cooperative, sensation nml, No motor deficits Skin Exam: normal color, warm, dry SpO2 Interpretation: normal SpO2: 100 Oxygen Delivery: Room Air - Radiology Exams Left Hip X-ray Interpretation: Interpreted by me, Other (linear lucency medial left inferior pubic [place]) Other X-ray Interpretation: Interpreted by me, Negative, No Fracture, Other (neg sacrum/coccyx) L-Spine X-ray Interpretation: Interpreted by me, Negative, Other (multiple levels of DJD in L spine, no acute) - CT Exams Pelvis CT Interpretation: Negative, Tele-radiologist Report (Dr Stewart), No Fracture Ordered Tests: Active Orders 24 hr Category Date Time Status HIP UNI (2V) INCL PEL IF DONE Stat Exams 02/23/17 15:32 Taken LUMBAR LIMITED (2 OR 3 VIEWS) Stat Exams 02/23/17 15:31 Taken PELVIS WITHOUT CONTRAST [CT] Stat Exams 02/23/17 16:21 Taken SACRUM AND COCCYX Stat Exams 02/23/17 15:33 Taken Medication Summary Discontinued Medications Generic Name Dose Route Start Last Admin Trade Name Uriel PRN Reason Stop Dose Admin Ketorolac Tromethamine 60 mg 02/23/17 15:31 02/23/17 15:58 Toradol 30 Mg Injection IM 02/23/17 15:32 60 mg STAT ONE Administration Ketorolac Tromethamine Confirm 02/23/17 15:40 Toradol 30 Mg Injection Administered 02/23/17 15:41 Dose 60 mg .ROUTE .STK-MED ONE - Progress Progress: improved Counseled pt/family regarding: rad results - Departure Time of Disposition: 18:39 Departure Disposition: Home Clinical Impression: Contusion of back, Contusion of left hip Condition: Stable Critical Care Time: No Additional Instructions: You have a contusion of your low back and left hip as result of the fall. The x -rays and CT scan were negative for fracture. Take Tylenol and ibuprofen as needed. Apply ice as needed. Follow-up if no improvement in 3-4 days.
[2017-02-23] MEDS ORDERED: TORAdol 30 mg Injection IM ONE (15:31)
[2017-02-23] MEDS ORDERED: TORAdol 30 mg Injection ONE (15:40)
[2017-02-23 18:46] VITALS: BP 128/67; PULSE 65; O2SAT 95
--- NOTE | 2017-02-23 20:18 | XRAY ---
Indication: Pain following fall. Comparison: None 3 views of the sacrum/coccyx demonstrates lumbosacral degenerative disc disease and faint vascular calcifications. No other bony, articular, or soft tissue abnormalities.
--- NOTE | 2017-02-23 20:18 | XRAY ---
Indication: Pain following fall. Comparison: None AP pelvis and 2 views of the left hip demonstrates faint vascular calcifications. No other bony, articular, or soft tissue abnormalities.
--- NOTE | 2017-02-23 20:22 | XRAY ---
Indication: Low back pain following fall. Comparison: May 01, 2008. 3 views of the lumbar spine again demonstrates normal alignment with moderate/advanced L5-S1 degenerative disc disease and new L4-L5 marginal endplate spurring. No other bony, articular, or soft tissue abnormalities.
--- NOTE | 2017-02-23 20:26 | XRAY ---
Indication: Left hip pain following fall. Multiple contiguous axial images obtained through the pelvis without contrast. Sagittal and coronal reformatted images obtained. Comparison: CT abdomen/pelvis November 17, 2015. No acute fracture or dislocation. Stable benign right femur head bone cyst, L5-S1 degenerative disc disease, left iliopsoas intramuscular lipoma, mild sigmoid diverticulosis, and mild scattered vascular calcifications. The remaining visualized noncontrasted soft tissues unremarkable. Impression: 1. Negative for acute fracture/dislocation. 2. Stable chronic findings as detailed. CTDI 46.87
== END 2017-02-23 18:45 | disposition home or self-care (01) ==
LOC: ED 15:13
DX: S30.0XXA Contusion of lower back and pelvis, initial encounter (principal); S70.02XA Contusion of left hip, initial encounter; W01.0XXA Fall on same level from slipping, tripping and stumbling without subsequent striking against object, initial encounter; M54.5 Low back pain; M25.552 Pain in left hip; I10 Essential (primary) hypertension; E78.00 Pure hypercholesterolemia, unspecified; E11.9 Type 2 diabetes mellitus without complications; Z79.899 Other long term (current) drug therapy; Z79.84 Long term (current) use of oral hypoglycemic drugs
CPT/HCPCS: 72100; 72192; 72220; 73502; 96372; 99284; J1885

== ENCOUNTER 2017-05-20 16:55 | Emergency (ER) | payer MEDICARE ==
--- NOTE | 2017-05-20 19:09 | ERPHSYRPT ---
- History of Present Illness Source: patient Exam Limitations: clinical condition Patient Subjective Stated Complaint: pt states he began having left shoulder and arm pain today. denies any injury. states pain was worse after moving things at his house. deniesa ny weakness or tingling. Triage Nursing Assessment: pt pink, warm, dry. no deformity noted. radial pulse strong. Physician History: Patient was moving furniture earlier this morning and felt a twinge and then some aching pain in his left shoulder. Became worse over the day came here for further evaluation treatment. No previous history of such. No direct trauma to the shoulder except for the stress sprain twisting pulling lifting motions associated with above activity. No neck pain no numbness tingling paresthesias. No weakness left arm. Patient has little to no pain at rest only with movement. Has not taken any medications or applied ice other therapy. Patient is a diabetic and hypertensive both of which aren't been under good control. Occurred: this morning Method of Injury: twisted Quality: constant, aching, throbbing Severity of Pain-Max: mild Severity of Pain-Current: mild Extremities Pain Location: shoulder: left Modifying Factors: Improves With: immobilization, movement, rest Associated Symptoms: none Allergies/Adverse Reactions: No Known Drug Allergies Allergy (Verified 02/23/17 15:19) Home Medications: Metformin HCl 1000 mg [Glucophage 1000 MG] 1,000 mg PO BID 05/17/15 [History] Magnesium 400 mg PO DAILY 07/03/15 [History] Nitroglycerin [Nitrostat] 0.4 mg SL Q5MIN PRN MR X 3 PRN 07/03/15 [History] Amlodipine Besylate 5 mg [Norvasc 5 mg] 5 mg PO DAILY 11/17/15 [History] Dexlansoprazole [Dexilant] 60 mg PO DAILY 12/11/16 [History] Lisinopril [Zestril] 40 mg PO DAILY 12/11/16 [History] Empagliflozin [Jardiance] 25 mg PO DAILY 02/08/17 [History] Gabapentin 300 mg PO TID 03/18/17 [History] Carvedilol [Coreg] 25 mg PO BID PRN 05/07/17 [History] Cetirizine HCl [All Day Allergy] 10 mg PO DAILY 05/07/17 [History] Ergocalciferol (Vitamin D2) [Vitamin D] 50,000 unit PO WEEKLY 05/07/17 [History] Hydroxyzine HCl 25 mg [Atarax 25 mg] 25 mg PO DAILY 05/07/17 [History] Insulin Aspart [NovoLOG Insulin] 0 unit SQ UD 05/07/17 [History] Linaclotide [Linzess] 290 mcg PO DAILY 05/07/17 [History] Metoclopramide HCl 10 mg [Reglan 10 MG] 10 mg PO TID 05/07/17 [History] Solifenacin Succinate [Vesicare] 10 mg PO DAILY 05/07/17 [History] Hx Tetanus, Diphtheria Vaccination/Date Given: Yes (up to date) Hx Influenza Vaccination/Date Given: No Hx Pneumococcal Vaccination/Date Given: No Immunizations Up to Date: Yes - Review of Systems Constitutional: No Symptoms Eyes: No Symptoms Ears, Nose, & Throat: No Symptoms Respiratory: No Cough, No Dyspnea Cardiac: No Chest Pain, No Edema, No Syncope Abdominal/Gastrointestinal: No Abdominal Pain, No Nausea, No Vomiting, No Diarrhea Genitourinary Symptoms: No Dysuria Musculoskeletal: Joint Pain ( NOTED IN HISTORY OF PRESENT ILLNESS) Skin: No Symptoms Neurological: No Symptoms Psychological: No Symptoms Endocrine: No Symptoms Hematologic/Lymphatic: No Symptoms - Past Medical History Pertinent Past Medical History: Yes Neurological History: Seizures, Stroke ENT History: No Pertinent History Cardiac History: Angina, Coronary Artery Disease, High Cholesterol, Hypertension , Myocardial Infarction ([place]), Other (CARDIAC DISABILITY) Respiratory History: Asthma, Bronchitis, Pneumonia, Sleep Apnea, Other Endocrine Medical History: Diabetes Type II Musculoskeletal History: Arthritis, Fractures GI Medical History: Esophageal Disorder, GERD History: No Pertinent History Psycho-Social History: Anxiety, Depression, Panic Disorder Male Reproductive Disorders: No Pertinent History - Past Surgical History Past Surgical History: Yes Neuro Surgical History: No Pertinent History Cardiac: Cardiac Catheterization, Cardiac Stent Respiratory: No Pertinent History Gastrointestinal: No Pertinent History Genitourinary: No Pertinent History Musculoskeletal: No Pertinent History Male Surgical History: No Pertinent History Other Surgical History: uvula removed - Social History Smoking Status: Former smoker Exposure to second hand smoke: No Alcohol Use: None Drug Use: none Patient Lives Alone: No Significant Family History: heart disease, diabetes, hypertension - Nursing Vital Signs Nursing Vital Signs: Initial Vital Signs Temperature 98.2 F 05/20/17 17:45 Pulse Rate 93 H 05/20/17 17:45 Respiratory Rate 20 05/20/17 17:45 Blood Pressure 136/85 05/20/17 17:45 O2 Sat by Pulse Oximetry 98 05/20/17 17:45 Pain Scale Pain Intensity 2 - Physical Exam General Appearance: no apparent distress Eyes, Ears, Nose, Throat Exam: normal ENT inspection Neck Exam: normal inspection, non-tender, supple, full range of motion Cardiovascular/Respiratory Exam: normal breath sounds, regular rate/rhythm, heart sounds normal Abdominal Exam: non-tender, soft Back Exam: normal inspection Shoulder Exam: limited ROM (ONLY BECAUSE OF PAIN.), soft tissue tenderness ( LEFT ANTERIOR SHOULDER IN THE BICIPITAL GROOVE REPRODUCE HIS PAIN SYNDROME) Elbow/Forearm Exam: normal inspection Wrist Exam: normal inspection, non-tender, no evidence of injury, normal ROM Hand Exam: normal inspection, non-tender DTR - Upper Extremity Exam: bicep (L): 2+, tricep (L): 1+ Neuro/Tendon Exam: normal sensation (AND NORMAL NEUROVASCULAR MOTOR FUN AND HAND.), normal motor functions, normal tendon functions Mental Status Exam: alert, oriented x 3, cooperative Skin Exam: normal color, warm, dry SpO2 Interpretation: normal SpO2: 98 Oxygen Delivery: Room Air Ordered Tests: Active Orders 24 hr Category Date Time Status Sling Application STAT Care 05/20/17 19:42 Active SHOULDER Stat Exams 05/20/17 19:09 Taken - Progress Progress: unchanged Progress Note: 05/20/17 19:45Patient's clinical exam and picture consistent with stress tendinitis of the left shoulder. Conservatively with sling ice tone on the anti -inflammatories due to his cardiac disease follow-up with medical provider later this week. Counseled pt/family regarding: diagnosis, need for follow-up, rad results - Departure Time of Disposition: 19:54 Departure Disposition: Home Clinical Impression: Tendinitis of left shoulder Condition: Stable Critical Care Time: No Referrals: EDUARDO ROMANO [Primary Care Provider] - Instructions: Shoulder Tendinopathy Additional Instructions: Worsening as much as possible to rest left shoulder and arm. Apply ice to the area for 20 minutes per hour while awake as often as possible next 48 hours. Tylenol 500 mg 4 times a day as needed. Continue current medications follow-up with medical provider later this week return to ER for significant surgeries.
[2017-05-20 19:55] VITALS: O2SAT 98
[2017-05-20 19:56] VITALS: BP 127/74; PULSE 68
--- NOTE | 2017-05-21 09:11 | XRAY ---
Indication: Pain following moving furniture. Comparison: None 3 views of the left shoulder demonstrates moderate AC degenerative arthropathy with inferior spurring, left lung calcified granuloma, and tiny linear ossifications near the greater tuberosity of the humerus presumed from old injury/inflammation. No other bony, articular, or soft tissue abnormalities.
== END 2017-05-20 19:59 | disposition home or self-care (01) ==
LOC: ED 16:55
DX: M75.92 Shoulder lesion, unspecified, left shoulder (principal); X50.0XXA Overexertion from strenuous movement or load, initial encounter
CPT/HCPCS: 73030; 99282; 99283

== ENCOUNTER 2017-08-17 16:26 | Emergency (ER) | payer MEDICARE ==
[2017-08-17] MEDS ORDERED: Adacel Vial IM ONE ×2 (16:49→17:04)
[2017-08-17] MEDS ORDERED: TYLENOL 325 MG PO ONE (16:49)
--- NOTE | 2017-08-17 16:53 | ERPHSYRPT ---
- History of Present Illness Time Seen by Provider: 08/17/17 16:45 Source: patient Patient Subjective Stated Complaint: Pt sts was moving wood stove and slid stove down his right leg. C/O pain on anterior aspect of right lower leg as well as right lateral aspect. Rates pain 5/10. Triage Nursing Assessment: Pt alert, oriented, answers all questions appropriately. Skin pink, warm, dry. Resps non-labored. Pt ambulatory to tx room with limp however gait remains steady. Abrasion noted to anterior aspect right lower leg. 2+ DP pulses bilat. Pt able to move toes, cap refill less than 2 seconds. No obvious bruising or deformity. Physician History: CC: right lower leg injury Hx: 52 y/o patient of Dr Romano was moving a wood stove and it hit his right lower leg. He has pain. Some abrasion. Unsure last tetanus vaccine. He has DM with pump and sugars have been well controlled. He is ambulatory. Pain mild. He is on an abtx for prior cellulitis. No other injury. Occurred: this afternoon Lower Extremities Pain: leg: right Allergies/Adverse Reactions: No Known Drug Allergies Allergy (Verified 08/17/17 16:48) Home Medications: Metformin HCl 1000 mg [Glucophage 1000 MG] 1,000 mg PO BID 05/17/15 [History] Magnesium 400 mg PO DAILY 07/03/15 [History] Nitroglycerin [Nitrostat] 0.4 mg SL Q5MIN PRN MR X 3 PRN 07/03/15 [History] Amlodipine Besylate 5 mg [Norvasc 5 mg] 5 mg PO DAILY 11/17/15 [History] Dexlansoprazole [Dexilant] 60 mg PO DAILY 12/11/16 [History] Lisinopril [Zestril] 40 mg PO DAILY 12/11/16 [History] Empagliflozin [Jardiance] 25 mg PO DAILY 02/08/17 [History] Gabapentin 300 mg PO TID 03/18/17 [History] Carvedilol [Coreg] 25 mg PO BID PRN 05/07/17 [History] Cetirizine HCl [All Day Allergy] 10 mg PO DAILY 05/07/17 [History] Ergocalciferol (Vitamin D2) [Vitamin D] 50,000 unit PO WEEKLY 05/07/17 [History] Hydroxyzine HCl 25 mg [Atarax 25 mg] 25 mg PO DAILY 05/07/17 [History] Insulin Aspart [NovoLOG Insulin] 0 unit SQ UD 05/07/17 [History] Linaclotide [Linzess] 290 mcg PO DAILY 05/07/17 [History] Metoclopramide HCl 10 mg [Reglan 10 MG] 10 mg PO TID 05/07/17 [History] Solifenacin Succinate [Vesicare] 10 mg PO DAILY 05/07/17 [History] Hx Tetanus, Diphtheria Vaccination/Date Given: Yes (up to date) Hx Influenza Vaccination/Date Given: No Hx Pneumococcal Vaccination/Date Given: No Immunizations Up to Date: Yes - Review of Systems Constitutional: No Fever, No Chills Eyes: No Symptoms Ears, Nose, & Throat: No Symptoms Musculoskeletal: Injury (right lower leg), No Back Pain, No Neck Pain Neurological: No Focal Weakness, No Parasthesia All Other Systems: Reviewed and Negative - Past Medical History Pertinent Past Medical History: Yes Neurological History: Seizures, Stroke ENT History: No Pertinent History Cardiac History: Angina, Coronary Artery Disease, High Cholesterol, Hypertension , Myocardial Infarction ([place]), Other Respiratory History: Asthma, Bronchitis, Pneumonia, Sleep Apnea, Other Endocrine Medical History: Diabetes Type II Musculoskeletal History: Arthritis, Fractures GI Medical History: Esophageal Disorder, GERD History: No Pertinent History Psycho-Social History: Anxiety, Depression, Panic Disorder Male Reproductive Disorders: No Pertinent History - Past Surgical History Past Surgical History: Yes Neuro Surgical History: No Pertinent History Cardiac: Cardiac Catheterization, Cardiac Stent Respiratory: No Pertinent History Gastrointestinal: No Pertinent History Genitourinary: No Pertinent History Musculoskeletal: No Pertinent History Male Surgical History: No Pertinent History Other Surgical History: uvula removed - Social History Smoking Status: Former smoker Exposure to second hand smoke: No Alcohol Use: None Drug Use: none Patient Lives Alone: No Significant Family History: heart disease, diabetes, hypertension - Nursing Vital Signs Nursing Vital Signs: Initial Vital Signs Temperature 97.9 F 08/17/17 16:42 Pulse Rate 85 08/17/17 16:42 Respiratory Rate 16 08/17/17 16:42 Blood Pressure 127/89 08/17/17 16:42 O2 Sat by Pulse Oximetry 97 08/17/17 16:42 Pain Scale Pain Intensity 3 - Physical Exam General Appearance: alert Eyes, Ears, Nose, Throat Exam: moist mucous membranes Neck Exam: normal inspection, non-tender, supple Cardiovascular/Respiratory Exam: chest non-tender, normal breath sounds, regular rate/rhythm Gastrointestinal/Abdominal Exam: non-tender, soft Back Exam: No vertebral tenderness Neuro/Tendon Exam: normal sensation, normal motor functions Mental Status Exam: alert, oriented x 3, cooperative Skin Exam: warm, dry SpO2: 97 Oxygen Delivery: Room Air Comments: Right lower leg has mild anterior abrasion, mild tenderness, no swelling. The pulse is intact DP. No ankle or hip tenderness. Rom intact. - Course Nursing assessment & vital signs reviewed: Yes - Radiology Exams right lower leg X-ray Interpretation: Teleradiologist Report, Negative (old fx, no acute) Ordered Tests: Active Orders 24 hr Category Date Time Status Cold Application STAT Care 08/17/17 16:49 Active Wound Care STAT Care 08/17/17 16:49 Active LOWER LEG Stat Exams 08/17/17 16:49 Taken Medication Summary Discontinued Medications Generic Name Dose Route Start Last Admin Trade Name Uriel PRN Reason Stop Dose Admin Acetaminophen 650 mg 08/17/17 16:49 08/17/17 17:05 Tylenol 325 Mg PO 08/17/17 16:50 650 mg STAT ONE Administration Acetaminophen Confirm 08/17/17 17:04 Tylenol 325 Mg Administered 08/17/17 17:05 Dose 650 mg .ROUTE .STK-MED ONE Diphtheria/Tetanus/Acell Pertussis 0.5 ml 08/17/17 16:49 08/17/17 17:05 Adacel Vial IM 08/17/17 16:50 0.5 ml .ONCE ONE Administration Diphtheria/Tetanus/Acell Pertussis Confirm 08/17/17 17:04 Adacel Vial Administered 08/17/17 17:05 Dose 0.5 ml IM .STK-MED ONE - Progress Progress Note: 08/17/17 17:35 Abrasions cleansed. He has a leg contusion. Will release with instructions. Counseled pt/family regarding: diagnosis, need for follow-up, rad results - Departure Time of Disposition: 17:35 Departure Disposition: Home Clinical Impression: Contusion of right lower leg, Abrasion, right lower leg, initial encounter Condition: Stable Critical Care Time: No Referrals: EDUARDO ROMANO [Primary Care Provider] - Instructions: Contusion Additional Instructions: SPRAINS/STRAINS/CONTUSIONS 1. Rest the affected area as much as possible for the next few days. 2. Apply ice to the affected area for 20-30 minutes at a time, several times a day. 3. If you receive an elastic wrap, wear it only while awake for comfort and support. Re-wrap the elastic wrap if it feels too tight or too loose. 4. If swelling is present, elevate the affected part above the level of the heart for at least 2 to 3 days. 5. Use splints, slings, or crutches as instructed. 6. Watch for severe swelling, coldness, numbness, and discoloration of the fingers and toes. See your family physician or return to the emergency department if any of these are noted. Tylenol as directed for discomfort. Elevate leg, ice packs off and on. Cleanse abrasions daily.
[2017-08-17] MEDS ORDERED: TYLENOL 325 MG ONE (17:04)
[2017-08-17 17:29] VITALS: BP 109/59; PULSE 76
[2017-08-17 17:37] VITALS: O2SAT 97
[2017-08-17] MEDS ORDERED: BACIGUENT PACKET TP ONE (17:41)
[2017-08-17] MEDS ORDERED: BACIGUENT PACKET ONE (17:42)
--- NOTE | 2017-08-18 08:40 | XRAY ---
Indication: Pain following injury. Comparison: None 2 views of the right lower leg demonstrates lateral malleolar tip heterotopic ossification either degenerative versus old injury. Tiny distal tibia/posterior calcaneal spurring and scattered vascular calcifications. No other bony, articular, or soft tissue abnormalities. Comment: Preliminary interpretation was made by [facility]. No discrepancy.
== END 2017-08-17 17:45 | disposition home or self-care (01) ==
LOC: ED 16:26
DX: S80.11XA Contusion of right lower leg, initial encounter (principal); S80.811A Abrasion, right lower leg, initial encounter; W22.8XXA Striking against or struck by other objects, initial encounter
CPT/HCPCS: 73590; 90471; 90715; 99283; A9270-GY

== ENCOUNTER 2018-02-24 11:02 | Emergency (ER) | payer MEDICARE ==
--- NOTE | 2018-02-24 11:36 | ERPHSYRPT ---
- History of Present Illness Time Seen by Provider: 02/24/18 11:26 Historian: patient Exam Limitations: no limitations Patient Subjective Stated Complaint: pt reports chest pain beginning last night- states that he couldn't find his nitro-denies sob denies recent illness Triage Nursing Assessment: pt pink warm and [id number] easy and nonlabored- no decrepitis noted-speaking in complete sentences with ease Physician History: The patient is a 52-year-old male complaining of chest pain that began 2 days ago. At times it is much worse than others. Last night it got worse. Right now it has subsided but still is present at a scale of 3 of 10. Pain radiation at times to his neck and both arms. At times he has had shortness of breath and nausea. He also said some sweating. He describes the pain as a dull ache. It' s in the mid chest. He took one nitroglycerin last night without relief. The nitroglycerin gave him a headache. His past medical history is significant for diabetes, hypertension, high cholesterol, coronary artery disease. He's had a cardiac catheterization years ago but doesn't know the results. He does not know if he had a cardiac stent placed. Timing/Duration: day(s) (2), constant, intermittent, worse Activities at Onset: none Quality: aching, sharpness Chest Pain Radiation: neck, arm Severity of Pain-Max: moderate Severity of Pain-Current: mild Modifying Factors: Improves With: nothing Associated Symptoms: diaphoresis Prior Chest Pain/Cardiac Workup: cardiac cath Nitro Today/Relief: 0.4 mg x 1, provided at home, no relief Aspirin Treatment Today: 325 mg x 1, provided by ED Allergies/Adverse Reactions: No Known Drug Allergies Allergy (Verified 02/24/18 11:19) Home Medications: Metformin HCl 1000 mg [Glucophage 1000 MG] 1,000 mg PO BID 05/17/15 [History] Magnesium 400 mg PO DAILY 07/03/15 [History] Nitroglycerin [Nitrostat] 0.4 mg SL Q5MIN PRN MR X 3 PRN 07/03/15 [History] Amlodipine Besylate 5 mg [Norvasc 5 mg] 5 mg PO DAILY 11/17/15 [History] Dexlansoprazole [Dexilant] 60 mg PO DAILY 12/11/16 [History] Lisinopril [Zestril] 40 mg PO DAILY 12/11/16 [History] Empagliflozin [Jardiance] 25 mg PO DAILY 02/08/17 [History] Gabapentin 300 mg PO TID 03/18/17 [History] Carvedilol [Coreg] 25 mg PO BID PRN 05/07/17 [History] Cetirizine HCl [All Day Allergy] 10 mg PO DAILY 05/07/17 [History] Ergocalciferol (Vitamin D2) [Vitamin D] 50,000 unit PO WEEKLY 05/07/17 [History] Hydroxyzine HCl 25 mg [Atarax 25 mg] 25 mg PO DAILY 05/07/17 [History] Insulin Aspart [NovoLOG Insulin] 0 unit SQ UD 05/07/17 [History] Linaclotide [Linzess] 290 mcg PO DAILY 05/07/17 [History] Metoclopramide HCl 10 mg [Reglan 10 MG] 10 mg PO TID 05/07/17 [History] Solifenacin Succinate [Vesicare] 10 mg PO DAILY 05/07/17 [History] Hx Tetanus, Diphtheria Vaccination/Date Given: Yes Hx Influenza Vaccination/Date Given: No Hx Pneumococcal Vaccination/Date Given: No Immunizations Up to Date: Yes - Review of Systems Constitutional: No Fever, No Chills Eyes: No Symptoms Ears, Nose, & Throat: No Symptoms Respiratory: No Cough, No Dyspnea Cardiac: Chest Pain Abdominal/Gastrointestinal: No Abdominal Pain, No Nausea, No Vomiting, No Diarrhea Genitourinary Symptoms: No Symptoms Musculoskeletal: No Back Pain, No Neck Pain Skin: No Rash Neurological: No Dizziness, No Focal Weakness, No Sensory Changes Psychological: No Symptoms Endocrine: No Symptoms Hematologic/Lymphatic: No Symptoms Immunological/Allergic: No Symptoms All Other Systems: Reviewed and Negative - Past Medical History Pertinent Past Medical History: Yes Neurological History: Seizures, Stroke ENT History: No Pertinent History Cardiac History: Angina, Coronary Artery Disease, High Cholesterol, Hypertension , Myocardial Infarction ([place]), Other Respiratory History: Asthma, Bronchitis, Pneumonia, Sleep Apnea, Other Endocrine Medical History: Diabetes Type II Musculoskeletal History: Arthritis, Fractures GI Medical History: Esophageal Disorder, GERD History: No Pertinent History Psycho-Social History: Anxiety, Depression, Panic Disorder Male Reproductive Disorders: No Pertinent History - Past Surgical History Past Surgical History: Yes Neuro Surgical History: No Pertinent History Cardiac: Cardiac Catheterization, Cardiac Stent Respiratory: No Pertinent History Gastrointestinal: No Pertinent History Genitourinary: No Pertinent History Musculoskeletal: No Pertinent History Male Surgical History: No Pertinent History Other Surgical History: uvula removed - Social History Smoking Status: Former smoker Exposure to second hand smoke: No Alcohol Use: None Drug Use: none Patient Lives Alone: No Significant Family History: heart disease, diabetes, hypertension - Nursing Vital Signs Nursing Vital Signs: Initial Vital Signs Temperature 98.1 F 02/24/18 11:06 Pulse Rate 70 02/24/18 11:06 Respiratory Rate 18 02/24/18 11:06 Blood Pressure 111/57 02/24/18 11:06 O2 Sat by Pulse Oximetry 97 02/24/18 11:06 Pain Scale Pain Intensity 7 - Physical Exam General Appearance: mild distress Eye Exam: PERRL/EOMI, eyes nml inspection Ears, Nose, Throat Exam: normal ENT inspection, moist mucous membranes Neck Exam: normal inspection, non-tender, supple, full range of motion Respiratory Exam: normal breath sounds, lungs clear, No respiratory distress Cardiovascular Exam: regular rate/rhythm, normal heart sounds Gastrointestinal/Abdomen Exam: soft, No tenderness, No mass Rectal Exam: not done Back Exam: normal inspection, No CVA tenderness, No vertebral tenderness Extremity Exam: normal inspection, normal range of motion Neurologic Exam: alert, oriented x 3, cooperative, normal mood/affect, sensation nml, No motor deficits Skin Exam: normal color, warm, dry SpO2 Interpretation: normal SpO2: 97 Oxygen Delivery: Room Air - Course EKG Interpreted by Me: RATE, Sinus Rhythm, NORMAL AXIS, NORMAL INTERVALS, NORMAL QRS, NORMAL ST-T - Radiology Exams Chest X-ray Interpretation: Reviewed by me, Teleradiologist Report, Negative (per Dr Stewart) Ordered Tests: Active Orders 24 hr Category Date Time Status Restaurant Culinary Manager STAT Care 02/24/18 11:43 Active Clean Catch Urine Specimen STAT Care 02/24/18 11:42 Active EKG-ER Only STAT Care 02/24/18 11:42 Active IV Insertion STAT Care 02/24/18 11:42 Active CHEST 2 VIEWS (PA AND LAT) Stat Exams 02/24/18 11:56 Completed CBC W DIFF Stat Lab 02/24/18 11:10 Completed CMP Stat Lab 02/24/18 11:10 Completed NT PRO BNP Stat Lab 02/24/18 11:10 Completed TROPONIN Q3H Lab 02/24/18 11:10 Completed TROPONIN Q3H Lab 02/24/18 14:45 Ordered TROPONIN Q3H Lab 02/24/18 17:45 Ordered TROPONIN Q3H Lab 02/24/18 20:45 Ordered TROPONIN Q3H Lab 02/24/18 23:45 Ordered Urine Triage Profile Stat Lab 02/24/18 12:41 Completed Medication Summary Discontinued Medications Generic Name Dose Route Start Last Admin Trade Name Freq PRN Reason Stop Dose Admin Aspirin 324 mg 02/24/18 11:42 02/24/18 12:10 Baby Aspirin 81 Mg Chew PO 02/24/18 11:43 324 mg STAT ONE Administration Aspirin Confirm 02/24/18 12:05 Baby Aspirin 81 Mg Chew Administered 02/24/18 12:06 Dose 324 mg .ROUTE .STK-MED ONE Famotidine 20 mg 02/24/18 11:42 02/24/18 12:10 Pepcid 20 Mg Vial IV 02/24/18 11:43 20 mg STAT ONE Administration Famotidine Confirm 02/24/18 12:05 Pepcid 20 Mg Vial Administered 02/24/18 12:06 Dose 20 mg IV .STK-MED ONE Nitroglycerin 0.4 mg 02/24/18 11:42 02/24/18 12:10 Nitrostat 0.4 Mg (Ed) SL 02/24/18 11:43 0.4 mg STAT ONE Administration Nitroglycerin Confirm 02/24/18 12:05 Nitrostat 0.4 Mg (Ed) Administered 02/24/18 12:06 Dose 0.4 mg SL .STK-MED ONE Lab/Rad Data: Laboratory Result Diagrams 02/24/18 11:10 02/24/18 11:10 Laboratory Results 02/24/18 02/24/18 02/24/18 Range/Units 12:41 11:10 11:10 WBC (4.0-10.5) K/mm3 RBC (4.1-5.6) M/mm3 Hgb (12.5-18.0) gm/dl Hct (42-50) % MCV (78-100) fl MCH (26-32) pg MCHC (32-36) g/dl RDW (11.5-14.0) % Plt Count (150-450) K/mm3 MPV (6-9.5) fl Gran % (36.0-66.0) % Eos # (Auto) (0-0.5) Absolute Lymphs (auto) (1.0-4.6) Absolute Monos (auto) (0.0-1.3) Lymphocytes % (24.0-44.0) % Monocytes % (0.0-12.0) % Eosinophils % (0.00-5.0) % Basophils % (0.0-0.4) % Absolute Granulocytes (1.4-6.9) Basophils # (0-0.4) Sodium 143 (137-145) mmol/L Potassium 4.6 (3.5-5.1) mmol/L Chloride 106 (98-107) mmol/L Carbon Dioxide 24 (22-30) mmol/L Anion Gap 18.0 H (5-15) MEQ/L BUN 10 (9-20) mg/dL Creatinine 0.82 (0.66-1.25) mg/dL Estimated GFR > 60.0 ML/MIN Glucose 178 H (74-106) mg/dL Calcium 9.6 (8.4-10.2) mg/dL Total Bilirubin 0.40 (0.2-1.3) mg/dL AST 21 (17-59) U/L ALT 28 (0-50) U/L Alkaline Phosphatase 49 (38-126) U/L Troponin I < 0.012 (0.000-0.034) ng/mL NT-Pro-B Natriuret Pep 91.3 (0-900) pg/mL Serum Total Protein 7.1 (6.3-8.2) g/dL Albumin 4.4 (3.5-5.0) g/dL Urine Opiates Level NEGATIVE (NEGATIVE) Ur Methadone NEGATIVE (NEGATIVE) Urine Barbiturates NEGATIVE (NEGATIVE) Ur Phencyclidine (PCP) NEGATIVE (NEGATIVE) Urine Amphetamine NEGATIVE (NEGATIVE) U Benzodiazepine Level NEGATIVE (NEGATIVE) Urine Cocaine NEGATIVE (NEGATIVE) Urine Marijuana (THC) NEGATIVE (NEGATIVE) 02/24/18 Range/Units 11:10 WBC 6.0 (4.0-10.5) K/mm3 RBC 4.86 (4.1-5.6) M/mm3 Hgb 14.4 (12.5-18.0) gm/dl Hct 41.3 L (42-50) % MCV 85.0 (78-100) fl MCH 29.6 (26-32) pg MCHC 34.9 (32-36) g/dl RDW 14.1 H (11.5-14.0) % Plt Count 226 (150-450) K/mm3 MPV 9.8 H (6-9.5) fl Gran % 58.1 (36.0-66.0) % Eos # (Auto) 0.13 (0-0.5) Absolute Lymphs (auto) 1.81 (1.0-4.6) Absolute Monos (auto) 0.51 (0.0-1.3) Lymphocytes % 30.4 (24.0-44.0) % Monocytes % 8.6 (0.0-12.0) % Eosinophils % 2.2 (0.00-5.0) % Basophils % 0.7 (0.0-0.4) % Absolute Granulocytes 3.47 (1.4-6.9) Basophils # 0.04 (0-0.4) Sodium (137-145) mmol/L Potassium (3.5-5.1) mmol/L Chloride (98-107) mmol/L Carbon Dioxide (22-30) mmol/L Anion Gap (5-15) MEQ/L BUN (9-20) mg/dL Creatinine (0.66-1.25) mg/dL Estimated GFR ML/MIN Glucose (74-106) mg/dL Calcium (8.4-10.2) mg/dL Total Bilirubin (0.2-1.3) mg/dL AST (17-59) U/L ALT (0-50) U/L Alkaline Phosphatase (38-126) U/L Troponin I (0.000-0.034) ng/mL NT-Pro-B Natriuret Pep (0-900) pg/mL Serum Total Protein (6.3-8.2) g/dL Albumin (3.5-5.0) g/dL Urine Opiates Level (NEGATIVE) Ur Methadone (NEGATIVE) Urine Barbiturates (NEGATIVE) Ur Phencyclidine (PCP) (NEGATIVE) Urine Amphetamine (NEGATIVE) U Benzodiazepine Level (NEGATIVE) Urine Cocaine (NEGATIVE) Urine Marijuana (THC) (NEGATIVE) - Progress Progress: improved Air Movement: good Blood Culture(s) Obtained: No Antibiotics given: No Counseled pt/family regarding: lab results, diagnosis, need for follow-up, rad results - Departure Time of Disposition: 13:49 Departure Disposition: Home Clinical Impression: Chest pain Condition: Stable Critical Care Time: No Referrals: EDUARDO ROMANO [Primary Care Provider] - Additional Instructions: You've had a couple of days of chest pain that is not cardiac in nature. The laboratory results were all negative as well as the EKG. Take Tylenol as needed for chest pain. Follow-up with your doctor's appointment tomorrow as scheduled.
[2018-02-24] MEDS ORDERED: Pepcid 20 MG VIAL IV ONE ×2 (11:42→12:05)
[2018-02-24] MEDS ORDERED: BABY ASPIRIN 81 MG CHEW PO ONE (11:42)
[2018-02-24] MEDS ORDERED: Nitrostat 0.4 MG (ED) SL ONE ×2 (11:42→12:05)
[2018-02-24 12:02] LABS: BASOPHIL % 0.7 % (0.0-0.4); Basophil (Absolute #) 0.04 (0-0.4); Eosinophil % 2.2 % (0.00-5.0); Eosinophil (Absolute #) 0.13 (0-0.5); Granulocyte Absolute (ANC) 3.47 (1.4-6.9); Granulocytes % 58.1 % (36.0-66.0); Hematocrit 41.3 % (42-50); Hemoglobin 14.4 gm/dl (12.5-18.0); Lymphocyte (Absolute #) 1.81 (1.0-4.6); Lymphocytes % 30.4 % (24.0-44.0); Mean Corpuscular Hemoglobin 29.6 pg (26-32); Mean Corpuscular Hgb Concent. 34.9 g/dl (32-36); Mean Platelet Volume 9.8 fl (6-9.5); Monocyte (Absolute #) 0.51 (0.0-1.3); Monocytes % 8.6 % (0.0-12.0); Platelet Count 226 K/mm3 (150-450); Red Blood Count 4.86 M/mm3 (4.1-5.6); Red Cell Distribution Width 14.1 % (11.5-14.0)
[2018-02-24] MEDS ORDERED: BABY ASPIRIN 81 MG CHEW ONE (12:05)
--- NOTE | 2018-02-24 12:12 | XRAY ---
Indication: Chest pain. Comparison: December 11, 2016. PA/lateral chest remains clear again with calcified granulomas, largest left mid lung. Heart and mediastinal structures within normal limits. Bony thorax intact again with mild degenerative changes. Impression: Stable nonacute chest with chronic features.
[2018-02-24 12:31] LABS: ALBUMIN 4.4 g/dL (3.5-5.0); ALKALINE PHOSPHATASE 49 U/L (38-126); BLOOD UREA NITROGEN 10 mg/dL (9-20); CHLORIDE 106 mmol/L (98-107); Calcium 9.6 mg/dL (8.4-10.2); Carbon Dioxide 24 mmol/L (22-30); Creatinine 1 0.82 mg/dL (0.66-1.25); Glucose 178 mg/dL (74-106); Potassium 4.6 mmol/L (3.5-5.1); SGOT/AST 21 U/L (17-59); SGPT/ALT 28 U/L (0-50); SODIUM 143 mmol/L (137-145); Total Protein 7.1 g/dL (6.3-8.2)
[2018-02-24 12:39] LABS: NT PRO BNP 91.3 pg/mL (0-900)
[2018-02-24 13:12] LABS: Amphetamine,Urine NEGATIVE (NEGATIVE); Barbiturate,Urine NEGATIVE (NEGATIVE); Benzodiazepine,Urine NEGATIVE (NEGATIVE); Cocaine,Urine NEGATIVE (NEGATIVE); Methadone,Urine NEGATIVE (NEGATIVE); Opiate,Urine NEGATIVE (NEGATIVE); PCP,Urine NEGATIVE (NEGATIVE); THC,Urine NEGATIVE (NEGATIVE)
[2018-02-24 13:53] VITALS: O2SAT 97
[2018-02-24 14:07] VITALS: BP 103/57; PULSE 72
== END 2018-02-24 14:08 | disposition home or self-care (01) ==
LOC: ED 11:02
DX: R07.9 Chest pain, unspecified (principal); I25.10 Atherosclerotic heart disease of native coronary artery without angina pectoris; E78.00 Pure hypercholesterolemia, unspecified; I10 Essential (primary) hypertension; I25.2 Old myocardial infarction; J45.909 Unspecified asthma, uncomplicated; G47.30 Sleep apnea, unspecified; E11.9 Type 2 diabetes mellitus without complications; Z79.4 Long term (current) use of insulin; M19.90 Unspecified osteoarthritis, unspecified site; K21.9 Gastro-esophageal reflux disease without esophagitis; F41.8 Other specified anxiety disorders; Z79.899 Other long term (current) drug therapy
CPT/HCPCS: 36000; 36415; 71046; 80053; 80307; 83880; 84484; 85025; 93005; 93041; 96374; 99284; A9270-GY

== ENCOUNTER 2018-12-25 11:03 | Emergency (ER) | payer MEDICARE ==
[2018-12-25 11:18] VITALS: O2SAT 98
--- NOTE | 2018-12-25 11:47 | ERPHSYRPT ---
- History of Present Illness Time Seen by Provider: 12/25/18 11:43 Source: patient Exam Limitations: no limitations Patient Subjective Stated Complaint: sudden onset right ankle pain Triage Nursing Assessment: Pt complains of sudden right ankle pain, denies injury, hx of fracturing it, rates pain 5/10, keeps him from sleeping, pulses normal, capillary refill <3 seconds, ankle appears swollen, tender Physician History: This is a 53-year-old white male with history of diabetes, hyperlipidemia, high blood pressure, esophageal disorder, GERD, anxiety, depression, panic disorder Patient complains of pain in his right ankle laterally symptoms for a week denies known injury. Past medical history includes diabetes type 2, hyperlipidemia, high blood pressure, esophageal disorder, GERD, anxiety, depression, panic disorder, right foot and ankle fractures Past surgical history includes cardiac catheter, cardiac stents, uvula removed. Method of Injury: unknown Occurred: last week Severity of Pain-Max: mild (we might need of any chava) Severity of Pain-Current: mild Lower Extremities Pain: ankle: right Modifying Factors: Improves With: nothing Associated Symptoms: none Allergies/Adverse Reactions: No Known Drug Allergies Allergy (Verified 12/25/18 11:18) Home Medications: Metformin HCl 1000 mg [Glucophage 1000 MG] 1,000 mg PO BID 05/17/15 [History] Magnesium 400 mg PO DAILY 07/03/15 [History] Nitroglycerin [Nitrostat] 0.4 mg SL Q5MIN PRN MR X 3 PRN 07/03/15 [History] Amlodipine Besylate 5 mg [Norvasc 5 mg] 5 mg PO DAILY 11/17/15 [History] Dexlansoprazole [Dexilant] 60 mg PO DAILY 12/11/16 [History] Lisinopril [Zestril] 40 mg PO DAILY 12/11/16 [History] Empagliflozin [Jardiance] 25 mg PO DAILY 02/08/17 [History] Gabapentin 300 mg PO TID 03/18/17 [History] Carvedilol [Coreg] 25 mg PO BID PRN 05/07/17 [History] Cetirizine HCl [All Day Allergy] 10 mg PO DAILY 05/07/17 [History] Ergocalciferol (Vitamin D2) [Vitamin D] 50,000 unit PO WEEKLY 05/07/17 [History] Hydroxyzine HCl 25 mg [Atarax 25 mg] 25 mg PO DAILY 05/07/17 [History] Insulin Aspart [NovoLOG Insulin] 0 unit SQ UD 05/07/17 [History] Linaclotide [Linzess] 290 mcg PO DAILY 05/07/17 [History] Metoclopramide HCl 10 mg [Reglan 10 MG] 10 mg PO TID 05/07/17 [History] Solifenacin Succinate [Vesicare] 10 mg PO DAILY 05/07/17 [History] Hx Tetanus, Diphtheria Vaccination/Date Given: Yes Hx Influenza Vaccination/Date Given: No Hx Pneumococcal Vaccination/Date Given: No - Review of Systems Constitutional: No Fever, No Chills Eyes: No Symptoms Ears, Nose, & Throat: No Symptoms Respiratory: No Cough, No Dyspnea Cardiac: No Chest Pain, No Edema, No Syncope Abdominal/Gastrointestinal: No Abdominal Pain, No Nausea, No Vomiting, No Diarrhea Genitourinary Symptoms: No Dysuria Musculoskeletal: Other (right lateral ankle pain for 1 week) Skin: No Rash Neurological: No Dizziness, No Focal Weakness, No Sensory Changes Psychological: No Symptoms Endocrine: No Symptoms All Other Systems: Reviewed and Negative - Past Medical History Pertinent Past Medical History: Yes Neurological History: Other ENT History: No Pertinent History Cardiac History: High Cholesterol, Hypertension Respiratory History: Other Endocrine Medical History: Diabetes Type II Musculoskeletal History: No Pertinent History GI Medical History: Esophageal Disorder, GERD History: No Pertinent History Psycho-Social History: Anxiety, Depression, Panic Disorder Male Reproductive Disorders: No Pertinent History Other Medical History: Headaches lately due to stress, lightheadedness due to stress, has breathing difficulty and is going to start a new lung doctor soon, heat stroke, R foot/ankle fracture - Past Surgical History Past Surgical History: Yes Neuro Surgical History: No Pertinent History Cardiac: Cardiac Catheterization, Cardiac Stent Respiratory: No Pertinent History Gastrointestinal: No Pertinent History Genitourinary: No Pertinent History Musculoskeletal: No Pertinent History Male Surgical History: No Pertinent History Other Surgical History: uvula removed - Social History Smoking Status: Former smoker Exposure to second hand smoke: Yes Alcohol Use: None Drug Use: none Patient Lives Alone: No Significant Family History: heart disease, diabetes, hypertension - Nursing Vital Signs Nursing Vital Signs: Initial Vital Signs Temperature 98.1 F 12/25/18 11:09 Pulse Rate 73 12/25/18 11:09 Respiratory Rate 16 12/25/18 11:09 Blood Pressure 140/80 12/25/18 11:09 O2 Sat by Pulse Oximetry 98 12/25/18 11:09 Pain Scale Pain Intensity 5 - Physical Exam General Appearance: alert Eyes, Ears, Nose, Throat Exam: moist mucous membranes Neck Exam: non-tender, supple Cardiovascular/Respiratory Exam: chest non-tender, normal breath sounds, regular rate/rhythm, no respiratory distress Gastrointestinal/Abdominal Exam: non-tender, guarding Back Exam: normal inspection, No vertebral tenderness Hips Exam: bilateral: non-tender, normal inspection, normal range of motion, no evidence of injury Legs Exam: bilateral leg: non-tender, normal inspection, normal range of motion , no evidence of injury Knees Exam: bilateral knee: non-tender, normal inspection, normal range of motion, no evidence of injury Ankle Exam: right ankle: bone tenderness (Right ankle tender withpalpation laterally), left ankle: non-tender, normal inspection, no evidence of injury, bilateral ankle: normal range of motion Foot Exam: right foot: normal range of motion, bone tenderness (Right lateral sluice tender with palpation inferior to right ankle laterally), left foot: non- tender, normal inspection, no evidence of injury Neuro/Tendon Exam: normal sensation, normal motor functions Mental Status Exam: alert, oriented x 3, cooperative Skin Exam: normal color, warm, dry SpO2 Interpretation: normal (98%) SpO2: 98 - Course Nursing assessment & vital signs reviewed: Yes - Radiology Exams Right Ankle X-ray Interpretation: Discussed w/ radiologist (x-ray right ankle: Comparison August 15, 2016. Impression three-view of the right ankle unchanged again demonstrating lateral malleolus tip well-circumscribed ossification. Developmental versus old injury. Small posterior spur, and scattered vascular calcifications No new/acute findings.) Ordered Tests: Active Orders 24 hr Category Date Time Status Splint STAT Care 12/25/18 12:06 Active ANKLE (3 VIEWS) Stat Exams 12/25/18 11:42 Completed - Progress Progress: improved Progress Note: 12/25/18 12:09 This is a 53-year-old white male who arrives with complaint of pain in his right ankle and pain inferior to his right ankle laterally on the foot symptoms going on for one week he denies any known injury. X-ray of the right ankle 3 view unchanged again demonstrating lateral malleolus tip well-circumscribed ossification either developmental versus old injury. There small posterior and scattered vascular calcifications.. There are no new or acute findings. Patient is tender with palpation over the lateral right malleolus and inferior to the lateral right malleolus. Will go ahead and place Aircast on the right ankle. I've offered the patient pain medication she does not want any Will recommend Tylenol therefore for pain ice and elevate right ankle 24-48 hours. Patient to follow-up with his family doctor. - Departure Time of Disposition: 12:11 Departure Disposition: Home Clinical Impression: Right foot pain Right ankle pain Qualifiers: Chronicity: acute Qualified Code(s): M25.571 - Pain in right ankle and joints of right foot Condition: Fair Critical Care Time: No Referrals: BROOKLYN FRITZ MD [Primary Care Provider] - Additional Instructions: Return home. Cold packs to the right ankle/foot 24-48 hours. Tylenol every 4-6 hours as needed for pain. Aircast right ankle 48-72 hours, longer if pain persist. Follow-up with your family doctor if symptoms are worse, no better in 48 hours, or persist longer than one week. Return for acute distress or for severe symptoms.
--- NOTE | 2018-12-25 12:02 | XRAY ---
Indication: Pain 1 week. No known injury. Comparison: August 15, 2016. 3 views of the right ankle unchanged again demonstrating lateral malleolus tip well-circumscribed ossification either developmental versus old injury, small posterior spur, and scattered vascular calcifications. No new/acute findings.
[2018-12-25 12:06] VITALS: BP 138/69; PULSE 68
== END 2018-12-25 12:23 | disposition home or self-care (01) ==
LOC: ED 11:03
DX: M79.671 Pain in right foot (principal); M25.571 Pain in right ankle and joints of right foot; E11.9 Type 2 diabetes mellitus without complications; E78.5 Hyperlipidemia, unspecified; I10 Essential (primary) hypertension; K21.9 Gastro-esophageal reflux disease without esophagitis; F41.8 Other specified anxiety disorders; F32.9 Major depressive disorder, single episode, unspecified; E78.00 Pure hypercholesterolemia, unspecified; Z79.4 Long term (current) use of insulin; Z79.899 Other long term (current) drug therapy
CPT/HCPCS: 73610; 99283

== ENCOUNTER 2019-05-10 15:18 | Emergency (ER) | payer MEDICARE ==
--- NOTE | 2019-05-10 16:15 | ERPHSYRPT ---
- History of Present Illness Time Seen by Provider: 05/10/19 16:09 Source: patient Exam Limitations: no limitations Patient Subjective Stated Complaint: pain in right foot that radiates to his knee, he thinks he was diagnosed with gout, pain has been there for over a month and states that his doctor told him to rest it and ice it, pain got severe today, right foot is swollen, he thinks that his knee may hurt due to the way he has been walking on it, he can not flex his foot upward Triage Nursing Assessment: Pt walked into the ER on his toes on the right foot, vitals wnl, pulses normal, capillary refill good, hx of right ankle fracture Physician History: Pt states pain for some time - worsening last few days. PCP gave him a blue pill he takes 3 times a day but is not helping now. Pain is R foot, distal lateral radiating up to ankle. Hurts with pressure on ball of foot with walking. Also taking Asprin (advised not to take with what is probably naprosyn or indocin). Quality: constant Lower Extremities Pain: foot: right (pain with any weight bearing) Allergies/Adverse Reactions: No Known Drug Allergies Allergy (Verified 05/10/19 15:36) Home Medications: Metformin HCl 1000 mg [Glucophage 1000 MG] 1,000 mg PO BID 05/17/15 [History] Magnesium 400 mg PO DAILY 07/03/15 [History] Nitroglycerin [Nitrostat] 0.4 mg SL Q5MIN PRN MR X 3 PRN 07/03/15 [History] Amlodipine Besylate 5 mg [Norvasc 5 mg] 5 mg PO DAILY 11/17/15 [History] Dexlansoprazole [Dexilant] 60 mg PO DAILY 12/11/16 [History] Lisinopril [Zestril] 40 mg PO DAILY 12/11/16 [History] Empagliflozin [Jardiance] 25 mg PO DAILY 02/08/17 [History] Gabapentin 300 mg PO TID 03/18/17 [History] Carvedilol [Coreg] 25 mg PO BID PRN 05/07/17 [History] Cetirizine HCl [All Day Allergy] 10 mg PO DAILY 05/07/17 [History] Ergocalciferol (Vitamin D2) [Vitamin D] 50,000 unit PO WEEKLY 05/07/17 [History] Hydroxyzine HCl 25 mg [Atarax 25 mg] 25 mg PO DAILY 05/07/17 [History] Insulin Aspart [NovoLOG Insulin] 0 unit SQ UD 05/07/17 [History] Linaclotide [Linzess] 290 mcg PO DAILY 05/07/17 [History] Metoclopramide HCl 10 mg [Reglan 10 MG] 10 mg PO TID 05/07/17 [History] Solifenacin Succinate [Vesicare] 10 mg PO DAILY 05/07/17 [History] Hx Tetanus, Diphtheria Vaccination/Date Given: Yes Hx Influenza Vaccination/Date Given: No Hx Pneumococcal Vaccination/Date Given: No - Past Medical History Pertinent Past Medical History: Yes Neurological History: Other ENT History: No Pertinent History Cardiac History: High Cholesterol, Hypertension Respiratory History: Other Endocrine Medical History: Diabetes Type II Musculoskeletal History: Fractures GI Medical History: Esophageal Disorder, GERD History: No Pertinent History Psycho-Social History: Anxiety, Depression, Panic Disorder Male Reproductive Disorders: No Pertinent History Other Medical History: heat stroke, R foot/ankle fracture - Past Surgical History Past Surgical History: Yes Neuro Surgical History: No Pertinent History Cardiac: Cardiac Catheterization, Cardiac Stent Respiratory: No Pertinent History Gastrointestinal: No Pertinent History Genitourinary: No Pertinent History Musculoskeletal: No Pertinent History Male Surgical History: No Pertinent History Other Surgical History: uvula removed - Social History Smoking Status: Former smoker Exposure to second hand smoke: Yes Alcohol Use: None Drug Use: none Patient Lives Alone: Yes Significant Family History: heart disease, diabetes, hypertension - Nursing Vital Signs Nursing Vital Signs: Initial Vital Signs Temperature 97.9 F 05/10/19 15:23 Pulse Rate 63 05/10/19 15:23 Blood Pressure 108/59 05/10/19 15:23 O2 Sat by Pulse Oximetry 94 L 05/10/19 15:23 Pain Scale Pain Intensity 2 - Physical Exam SpO2: 94 - Course Nursing assessment & vital signs reviewed: Yes - Radiology Exams Right Foot X-ray Interpretation: Interpreted by me, Other (Quesion of old fx vs subacute distal R 5th metatarsal) Ordered Tests: Active Orders 24 hr Category Date Time Status FOOT (MINIMUM 3 VIEWS) Stat Exams 05/10/19 16:23 Taken Uric Acid Stat Lab 08/04/19 16:24 Completed Lab/Rad Data: Laboratory Results 05/10/19 Range/Units 16:24 Uric Acid 6.5 (3.5-7.2) mg/dL - Departure Departure Disposition: Home Clinical Impression: Foot pain, right Condition: Stable Critical Care Time: No Referrals: BROOKLYN FRITZ MD [Primary Care Provider] - Additional Instructions: Continue with medication from primary care; take CD with you to your foot doctor for evaluation. Use post op boot for comfort.
[2019-05-10 16:59] VITALS: BP 130/77; PULSE 60
[2019-05-10 17:14] VITALS: O2SAT 94
--- NOTE | 2019-05-10 21:05 | XRAY ---
Indication: Pain. No known injury. Comparison: April 27, 2019. 3 nonweightbearing views of the right foot again demonstrates small posterior heel spur. No new/acute bony, articular, or soft tissue abnormalities.
== END 2019-05-10 17:54 | disposition home or self-care (01) ==
LOC: ED 15:18
DX: M79.671 Pain in right foot (principal)
CPT/HCPCS: 36415; 73630; 84550; 99283

== ENCOUNTER 2019-05-26 20:03 | Emergency (ER) | payer MEDICARE | END 2019-05-27 00:11 | disposition home or self-care (01) | LOC: ED 05-27 00:11 ==

== ENCOUNTER 2019-09-12 15:29 | Emergency (ER) | payer MEDICARE ==
[2019-09-12] MEDS ORDERED: BABY ASPIRIN 81 MG CHEW PO ONE (15:38)
[2019-09-12] MEDS ORDERED: MORPHINE SULFATE 4 MG INJ IV ONE (15:38)
[2019-09-12] MEDS ORDERED: Nitrostat 0.4 MG (ED) SL ONE ×2 (15:38→15:49)
[2019-09-12] MEDS ORDERED: Sodium Chloride 0.9% 1000 ML 1,000 ML IV SCH (15:45)
[2019-09-12] MEDS ORDERED: BABY ASPIRIN 81 MG CHEW ONE (15:48)
[2019-09-12] MEDS ORDERED: Sodium Chloride 0.9% 1000 ML 1,000 ML ONE (15:49)
[2019-09-12] MEDS ORDERED: MORPHINE SULFATE 4 MG INJ ONE (15:49)
--- NOTE | 2019-09-12 15:55 | ERPHSYRPT ---
- History of Present Illness Time Seen by Provider: 09/12/19 15:52 Historian: patient Exam Limitations: no limitations Patient Subjective Stated Complaint: Pt states "I am having a hard time catching my breath and my chest hurts." Triage Nursing Assessment: Pt presented alert and oriented X 3, skin pwd Pt ambulates with an upright steady gait, able to speak in clear full sentneces. Pt has insulin pump and insulin reader. Physician History: Pt states "I am having a hard time catching my breath and my chest hurts." started today AM, Timing/Duration: today Activities at Onset: activity Quality: tightness Location: central Chest Pain Radiation: no radiation Severity of Pain-Max: moderate Severity of Pain-Current: moderate Modifying Factors: Improves With: breathing Associated Symptoms: hurts to breathe, No shortness of breath, No cough, No diaphoresis, No chills, No fever, No fatigue, No weakness, No swelling/lump in chest, No syncope, No rash, No headache, No dizziness Aspirin Treatment Today: 81 mg x 1 Allergies/Adverse Reactions: No Known Drug Allergies Allergy (Verified 05/10/19 15:36) Home Medications: Metformin HCl 1000 mg [Glucophage 1000 MG] 1,000 mg PO BID 05/17/15 [History] Nitroglycerin [Nitrostat] 0.4 mg SL Q5MIN PRN MR X 3 PRN 07/03/15 [History] Carvedilol [Coreg] 25 mg PO BID 05/07/17 [History] Famotidine 20 mg [Pepcid 20 MG] 40 mg PO BID 05/26/19 [History] Empagliflozin [Jardiance] 10 mg PO DAILY 09/12/19 [History] Ezetimibe 10 mg PO DAILY 09/12/19 [History] Insulin Aspart [Novolog] 100 unit SQ DAILY 09/12/19 [History] Liraglutide [Victoza 2-Vasile] 1.8 mg SQ DAILY 09/12/19 [History] Hx Tetanus, Diphtheria Vaccination/Date Given: No Hx Influenza Vaccination/Date Given: No Hx Pneumococcal Vaccination/Date Given: No Immunizations Up to Date: Yes - Review of Systems Constitutional: No Fever, No Chills Eyes: No Symptoms Ears, Nose, & Throat: No Symptoms Respiratory: Other (pain while breathing), No Cough, No Dyspnea Cardiac: Chest Pain, No Edema, No Syncope Abdominal/Gastrointestinal: No Abdominal Pain, No Nausea, No Vomiting, No Diarrhea Genitourinary Symptoms: No Dysuria Musculoskeletal: No Back Pain, No Neck Pain Skin: No Rash Neurological: No Dizziness, No Focal Weakness, No Sensory Changes Psychological: No Symptoms Endocrine: No Symptoms All Other Systems: Reviewed and Negative - Past Medical History Pertinent Past Medical History: Yes Neurological History: Other ENT History: No Pertinent History Cardiac History: High Cholesterol, Hypertension Respiratory History: Other Endocrine Medical History: Diabetes Type II Musculoskeletal History: Fractures GI Medical History: Esophageal Disorder, GERD History: No Pertinent History Psycho-Social History: Anxiety, Depression, Panic Disorder Male Reproductive Disorders: No Pertinent History Other Medical History: heat stroke, R foot/ankle fracture - Past Surgical History Past Surgical History: Yes Neuro Surgical History: No Pertinent History Cardiac: Cardiac Catheterization Respiratory: No Pertinent History Gastrointestinal: No Pertinent History Genitourinary: No Pertinent History Musculoskeletal: No Pertinent History Male Surgical History: No Pertinent History Other Surgical History: uvula removed. carpal tunnel right hand - Social History Smoking Status: Former smoker Exposure to second hand smoke: Yes Alcohol Use: None Drug Use: none Patient Lives Alone: Yes Significant Family History: heart disease, diabetes, hypertension - Nursing Vital Signs Nursing Vital Signs: Initial Vital Signs Temperature 98.1 F 09/12/19 15:34 Pulse Rate 70 09/12/19 15:34 Respiratory Rate 20 09/12/19 15:34 Blood Pressure 169/101 09/12/19 15:34 O2 Sat by Pulse Oximetry 98 09/12/19 15:34 Pain Scale Pain Intensity 0 - Physical Exam General Appearance: no apparent distress, alert Eye Exam: PERRL/EOMI, eyes nml inspection Ears, Nose, Throat Exam: normal ENT inspection, moist mucous membranes Neck Exam: normal inspection, non-tender, supple, full range of motion Respiratory Exam: normal breath sounds, lungs clear, No respiratory distress Cardiovascular Exam: regular rate/rhythm, normal heart sounds Gastrointestinal/Abdomen Exam: soft, No tenderness, No mass Back Exam: normal inspection, No CVA tenderness, No vertebral tenderness Extremity Exam: normal inspection, normal range of motion Neurologic Exam: alert, oriented x 3, cooperative, normal mood/affect, sensation nml, No motor deficits Skin Exam: normal color, warm, dry SpO2: 98 - Course Nursing assessment & vital signs reviewed: Yes EKG Interpreted by Me: Sinus Rhythm Rhythm Strip: Normal Sinus Rhythm - Radiology Exams Chest X-ray Interpretation: Reviewed by me Ordered Tests: Active Orders 24 hr Category Date Time Status Water Resources Program Director STAT Care 09/12/19 15:39 Active EKG-ER Only STAT Care 09/12/19 15:38 Active IV Insertion STAT Care 09/12/19 15:38 Active Oxygen-ED Only Nasal Cannula 3 lpm Care 09/12/19 15:38 Active CHEST 1 VIEW (PORTABLE) Stat Exams 09/12/19 15:39 Taken CBC W DIFF Stat Lab 09/12/19 15:52 Completed CMP Stat Lab 09/12/19 15:52 Completed D-DIMER QUANTITATION Stat Lab 09/12/19 15:47 Completed NT PRO BNP Stat Lab 09/12/19 15:52 Completed TROPONIN Q3H Lab 09/12/19 15:52 Completed TROPONIN Q3H Lab 09/12/19 18:45 Ordered TROPONIN Q3H Lab 09/12/19 21:45 Ordered TROPONIN Q3H Lab 09/13/19 00:45 Ordered TROPONIN Q3H Lab 09/13/19 03:45 Ordered Medication Summary Generic Name Dose Route Start Last Admin Trade Name Freq PRN Reason Stop Dose Admin Sodium Chloride 1,000 mls @ 50 mls/hr 09/12/19 15:45 09/12/19 15:51 Sodium Chloride 0.9% 1000 Ml IV 10/12/19 15:44 50 mls/hr .Q20H LACY Administration Discontinued Medications Generic Name Dose Route Start Last Admin Trade Name Freq PRN Reason Stop Dose Admin Aspirin 81 mg 09/12/19 15:38 09/12/19 15:51 Baby Aspirin 81 Mg Chew PO 09/12/19 15:39 81 mg STAT ONE Administration Aspirin Confirm 09/12/19 15:48 Baby Aspirin 81 Mg Chew Administered 09/12/19 15:49 Dose 81 mg .ROUTE .STK-MED ONE Lorazepam 1 mg 09/12/19 17:21 Ativan 2 Mg/1 Ml Vial IV 09/12/19 17:22 STAT ONE Morphine Sulfate 4 mg 09/12/19 15:38 09/12/19 15:51 Morphine Sulfate 4 Mg Inj IV 09/12/19 15:39 4 mg STAT ONE Administration Morphine Sulfate Confirm 09/12/19 15:49 Morphine Sulfate 4 Mg Inj Administered 09/12/19 15:50 Dose 4 mg .ROUTE .STK-MED ONE Nitroglycerin 0.4 mg 09/12/19 15:38 09/12/19 15:51 Nitrostat 0.4 Mg (Ed) SL 09/12/19 15:39 0.4 mg STAT ONE Administration Nitroglycerin Confirm 09/12/19 15:49 Nitrostat 0.4 Mg (Ed) Administered 09/12/19 15:50 Dose 0.4 mg SL .STK-MED ONE Lab/Rad Data: Laboratory Result Diagrams 09/12/19 15:52 09/12/19 15:52 Laboratory Results 09/12/19 09/12/19 09/12/19 Range/Units 15:52 15:52 15:52 WBC 5.6 (4.0-10.5) K/mm3 RBC 4.88 (4.1-5.6) M/mm3 Hgb 14.0 (12.5-18.0) gm/dl Hct 41.9 L (42-50) % MCV 85.9 (78-100) fl MCH 28.7 (26-32) pg MCHC 33.4 (32-36) g/dl RDW 15.1 H (11.5-14.0) % Plt Count 201 (150-450) K/mm3 MPV 9.1 (6-9.5) fl Gran % 59.9 (36.0-66.0) % Eos # (Auto) 0.11 (0-0.5) Absolute Lymphs (auto) 1.60 (1.0-4.6) Absolute Monos (auto) 0.52 (0.0-1.3) Lymphocytes % 28.4 (24.0-44.0) % Monocytes % 9.2 (0.0-12.0) % Eosinophils % 2.0 (0.00-5.0) % Basophils % 0.5 (0.0-0.4) % Absolute Granulocytes 3.38 (1.4-6.9) Basophils # 0.03 (0-0.4) D-Dimer (215-500) ng/mL Sodium 143 (137-145) mmol/L Potassium 4.0 (3.5-5.1) mmol/L Chloride 106 (98-107) mmol/L Carbon Dioxide 27 (22-30) mmol/L Anion Gap 14.4 (5-15) MEQ/L BUN 16 (9-20) mg/dL Creatinine 0.78 (0.66-1.25) mg/dL Estimated GFR > 60.0 ML/MIN Glucose 178 H (74-106) mg/dL Calcium 9.4 (8.4-10.2) mg/dL Total Bilirubin 0.30 (0.2-1.3) mg/dL AST 22 (17-59) U/L ALT 24 (0-50) U/L Alkaline Phosphatase 57 (38-126) U/L Troponin I < 0.012 (0.000-0.034) ng/mL NT-Pro-B Natriuret Pep 241 (0-900) pg/mL Serum Total Protein 7.5 (6.3-8.2) g/dL Albumin 4.2 (3.5-5.0) g/dL 09/12/19 Range/Units 15:47 WBC (4.0-10.5) K/mm3 RBC (4.1-5.6) M/mm3 Hgb (12.5-18.0) gm/dl Hct (42-50) % MCV (78-100) fl MCH (26-32) pg MCHC (32-36) g/dl RDW (11.5-14.0) % Plt Count (150-450) K/mm3 MPV (6-9.5) fl Gran % (36.0-66.0) % Eos # (Auto) (0-0.5) Absolute Lymphs (auto) (1.0-4.6) Absolute Monos (auto) (0.0-1.3) Lymphocytes % (24.0-44.0) % Monocytes % (0.0-12.0) % Eosinophils % (0.00-5.0) % Basophils % (0.0-0.4) % Absolute Granulocytes (1.4-6.9) Basophils # (0-0.4) D-Dimer 482 (215-500) ng/mL Sodium (137-145) mmol/L Potassium (3.5-5.1) mmol/L Chloride (98-107) mmol/L Carbon Dioxide (22-30) mmol/L Anion Gap (5-15) MEQ/L BUN (9-20) mg/dL Creatinine (0.66-1.25) mg/dL Estimated GFR ML/MIN Glucose (74-106) mg/dL Calcium (8.4-10.2) mg/dL Total Bilirubin (0.2-1.3) mg/dL AST (17-59) U/L ALT (0-50) U/L Alkaline Phosphatase (38-126) U/L Troponin I (0.000-0.034) ng/mL NT-Pro-B Natriuret Pep (0-900) pg/mL Serum Total Protein (6.3-8.2) g/dL Albumin (3.5-5.0) g/dL - Progress Progress: improved Air Movement: good Blood Culture(s) Obtained: No Antibiotics given: No Counseled pt/family regarding: lab results, diagnosis, need for follow-up, rad results, smoking cessation - Departure Departure Disposition: Home Clinical Impression: Chest pain Qualifiers: Chest pain type: chest pain on breathing Qualified Code(s): R07.1 - Chest pain on breathing; R07.81 - Pleurodynia Epigastric abdominal tenderness Qualifiers: Presence of rebound: present Qualified Code(s): R10.826 - Epigastric rebound abdominal tenderness Condition: Stable Critical Care Time: Yes Critical Care Time(excluding separately billable procedures): Critical 30-74 mins Referrals: BROOKLYN FRITZ MD [Primary Care Provider] - Instructions: Atypical Chest Pain Additional Instructions: ABDOMINAL PAIN 1. There are several different causes for abdominal pain, some of which may not be able to be identified on initial examination. 2. The important thing to remember is that bodily functions can change in a short period of time. If you notice any of the following symptoms, return to the emergency department or consult your doctor immediately: A. Worsening pain or no improvement in the next 12 hours. B. Increasing, severe abdominal pain C. Blood in stool D. Black stools E. Persistent vomiting F. Fever or chills or other symptoms Discharge/Care Plan VIKASHJORDAN KEANE was seen on 09/12/19 in the Emergency Room. The patient was counseled regarding Diagnosis,Lab results, Imaging studies, need for follow up and when to return to the Emergency Room. Prescriptions given: Discharge Note I have spoken with the patient and/or caregivers. I have explained the patient' s condition, diagnosis and treatment plan based on the information available to me at this time. I have answered the patient's and/or caregiver's questions and addressed any concerns. The patient and/or caregivers have as good understanding of the patient's diagnosis, condition and treatment plan as can be expected at this point. The vital signs have been stable. The patient's condition is stable and appropriate for discharge from the emergency department. The patient will pursue further outpatient evaluation with the primary care physician or other designated or consulting physician as outlined in the discharge instructions. The patient and/or caregivers are agreeable to this plan of care and follow-up instructions have been explained in detail. The patient and/or caregivers have received these instruction. The patient/and or caregivers are aware that any significant change in condition or worsening of symptoms should prompt an immediate return to this or the closest emergency department or call 911. VIKASHJORDAN KEANE was seen on 09/12/19 n the Emergency Room. At that time you were treated for an emergent condition, during your visit Laboratory, Radiology and/or other procedures may have been ordered. It is very important that you follow-up with your Primary Care Physician BROOKLYN FRITZ within the next 24- 48 hours to review your Emergency Room visit and the final results of testing that was ordered. Some test results such as Urine Cultures, Blood Cultures, and other cultures if ordered will not be finalized for 24-48 hours. If you do not have a Primary Care Provider please call the medical records department at [phone] ext [phone] to obtain a copy of your results or you may sign into our patient portal to obtain these results by visiting us @ [email or web address] and completing the following steps: 1. Click on the Patient Portal link 2. Click the Patient Self Enrollment Link to complete the enrollment form and entering your 3. Once the enrollment form is completed you will receive an email with a temporary ID and password at the email address you provided. 4. Next choose a user name and password. Your user name must be at least 4 characters long and your password must be at least 4 characters long. 5. Choose a security question from the list and provide your answer to the question. If you already have signed into the Health Portal you may access your Health Care Information 29/04 by the following steps: 1. Login to our website @ [email or web address] 2. Enter your original user name and password. FAQS The [facility] Health Portal is an online tool that contains your Lab Results, Radiology Reports, Visit History, Discharge Instructions and Health Summary Lab and Radiology Results will not be available for 72 hours on the portal. The Portal is a secure site, passwords are encryted and URLs are re-written so they cannot be copied and pasted. You and authorized family members are the only ones who can access your Portal. Also there is a timeout feature that protects your information if you leave the Portal page open. If you have technical difficulty please use the Contact Us link on the page this will allow you to submit any questions you have regarding the Portal or you may contact the Medical Record Department at [phone] ext [phone]. Prescriptions: Naproxen 375 mg [Naprosyn 375 mg] 375 mg PO Q8H #30 tablet
[2019-09-12 15:56] LABS: Absolute Neutrophil Ct (ANC) 3.38 (1.4-6.9); BASOPHIL % 0.5 % (0.0-0.4); Basophil (Absolute #) 0.03 (0-0.4); Eosinophil (Absolute #) 0.11 (0-0.5); Hematocrit 41.9 % (42-50); Lymphocytes % 28.4 % (24.0-44.0); Mean Cell Volume 85.9 fl (78-100); Mean Corpuscular Hemoglobin 28.7 pg (26-32); Mean Corpuscular Hgb Concent. 33.4 g/dl (32-36); Mean Platelet Volume 9.1 fl (6-9.5); Monocyte (Absolute #) 0.52 (0.0-1.3); Monocytes % 9.2 % (0.0-12.0); Neutrophil % 59.9 % (36.0-66.0); Platelet Count 201 K/mm3 (150-450); Red Blood Count 4.88 M/mm3 (4.1-5.6); Red Cell Distribution Width 15.1 % (11.5-14.0); White Blood Count 5.6 K/mm3 (4.0-10.5)
[2019-09-12 16:14] LABS: ALBUMIN 4.2 g/dL (3.5-5.0); ALKALINE PHOSPHATASE 57 U/L (38-126); ANION GAP 14.4 MEQ/L (5-15); BLOOD UREA NITROGEN 16 mg/dL (9-20); CHLORIDE 106 mmol/L (98-107); Calcium 9.4 mg/dL (8.4-10.2); Carbon Dioxide 27 mmol/L (22-30); Creatinine 1 0.78 mg/dL (0.66-1.25); Glucose 178 mg/dL (74-106); NT PRO BNP 241 pg/mL (0-900); SGOT/AST 22 U/L (17-59); SGPT/ALT 24 U/L (0-50); SODIUM 143 mmol/L (137-145); Total Protein 7.5 g/dL (6.3-8.2)
[2019-09-12] MEDS ORDERED: Ativan 2 MG/1 ML VIAL IV ONE (17:21)
[2019-09-12] MEDS ORDERED: Ativan 2 MG/1 ML VIAL ONE (17:33)
[2019-09-12 17:56] VITALS: BP 143/82; PULSE 66; O2SAT 99
--- NOTE | 2019-09-12 20:10 | XRAY ---
Indication: Substernal chest pain. Comparison: May 26, 2019. Portable chest remains clear. Heart is not enlarged for AP portable technique. Bony thorax intact again with mild degenerative changes. Impression: Nonacute chest.
== END 2019-09-12 17:59 | disposition home or self-care (01) ==
LOC: ED 15:29
DX: R07.1 Chest pain on breathing (principal); R10.826 Epigastric rebound abdominal tenderness
CPT/HCPCS: 36000; 36415; 71045; 80053; 83880; 84484; 85025; 85379; 93005; 93041; 96360; 96361; 96374; 96375; 99285; 99291; J2060; J2270; A9270-GY

== ENCOUNTER 2019-12-01 16:24 | Observation (INO) | payer MEDICARE ==
[2019-12-01 18:05] LABS: Absolute Neutrophil Ct (ANC) 4.87 (1.4-6.9); BASOPHIL % 0.4 % (0.0-0.4); Basophil (Absolute #) 0.03 (0-0.4); Eosinophil % 0.9 % (0.00-5.0); Eosinophil (Absolute #) 0.07 (0-0.5); Hematocrit 42.7 % (42-50); Hemoglobin 14.4 gm/dl (12.5-18.0); Lymphocyte (Absolute #) 1.93 (1.0-4.6); Lymphocytes % 25.5 % (24.0-44.0); Mean Corpuscular Hemoglobin 29.3 pg (26-32); Mean Corpuscular Hgb Concent. 33.7 g/dl (32-36); Mean Platelet Volume 10.2 fl (7.5-11.0); Monocyte (Absolute #) 0.67 (0.0-1.3); Monocytes % 8.9 % (0.0-12.0); Neutrophil % 64.3 % (36.0-66.0); Platelet Count 196 K/mm3 (150-450); Red Blood Count 4.91 M/mm3 (4.1-5.6); Red Cell Distribution Width 14.4 % (11.5-14.0); White Blood Count 7.6 K/mm3 (4.0-10.5)
--- NOTE | 2019-12-01 18:05 | ERPHSYRPT ---
- History of Present Illness Time Seen by Provider: 12/01/19 17:05 Source: patient Patient Subjective Stated Complaint: Pt states "I have been passing out, that is why I have this monitor on me. Today I was standing up and passed out and hit the floor." Triage Nursing Assessment: Pt presented alert and oriented X 3, skin pwd Pt ambulates with a slow gait, able to speak in clear full sentences. Pt in no apparent respiratory distress. Physician History: The patient is a 54-year-old male with a past medical history significant for dizziness with standing, hypertension, diabetes mellitus who presents with a chief complaint of syncope. Of note, the patient reportedly has been suffering from episodes of "dizzy spells" for the past year. He states that would come on at random and can occur when he goes from a sitting to standing position or while walking for some distance before he suddenly feels as if he is going to "pass out". This afternoon at around 4:00, the phone rang and he got up out of bed and upon standing he felt like his vision was giving out ringing in his ears and had the feeling that he was actually going to pass out. He then briefly lost consciousness and impacted an object on the way down scraping his mid back. He denies head injury, headache, nausea, vomiting, chest pain, paresthesias, tingling in his hands and feet, and reported is not taking anticoagulants. Of note, his primary care provider has placed him on outpatient Holter monitoring to eval for evidence of a tachy or bradycardia arrhythmia. Currently , he is asymptomatic. He decided to come to the emergency department today because he reportedly has never lost consciousness with his episodes of dizziness. Allergies/Adverse Reactions: No Known Drug Allergies Allergy (Verified 05/10/19 15:36) Home Medications: Metformin HCl 1000 mg [Glucophage 1000 MG] 1,000 mg PO BID 05/17/15 [History] Nitroglycerin [Nitrostat] 0.4 mg SL Q5MIN PRN MR X 3 PRN 07/03/15 [History] Carvedilol [Coreg] 25 mg PO BID 05/07/17 [History] Famotidine 20 mg [Pepcid 20 MG] 40 mg PO BID 05/26/19 [History] Empagliflozin [Jardiance] 10 mg PO DAILY 09/12/19 [History] Ezetimibe 10 mg PO DAILY 09/12/19 [History] Insulin Aspart [Novolog] 100 unit SQ DAILY 09/12/19 [History] Liraglutide [Victoza 2-Vasile] 1.8 mg SQ DAILY 09/12/19 [History] Hx Tetanus, Diphtheria Vaccination/Date Given: No Hx Influenza Vaccination/Date Given: No Hx Pneumococcal Vaccination/Date Given: No Immunizations Up to Date: Yes - Review of Systems Constitutional: No Fever, No Chills Eyes: No Symptoms, No Eye Pain, No Eye Redness Ears, Nose, & Throat: No Symptoms Respiratory: No Symptoms, No Cyanosis, No Dyspnea Cardiac: Syncope, No Chest Pain, No Palpitations, No Orthopnea Abdominal/Gastrointestinal: No Symptoms, No Nausea, No Vomiting Musculoskeletal: No Symptoms, Fall, Injury (Abrasion to mid/lower back), Other Skin: Other (Abrasion to mid/lower back) Neurological: Dizziness, No Headache, No Irritability, No Speech Changes, No Vertigo Psychological: No Symptoms Endocrine: No Symptoms Hematologic/Lymphatic: No Symptoms Immunological/Allergic: No Symptoms All Other Systems: Reviewed and Negative - Past Medical History Pertinent Past Medical History: Yes Neurological History: Other ENT History: No Pertinent History Cardiac History: High Cholesterol, Hypertension Respiratory History: Other Endocrine Medical History: Diabetes Type II Musculoskeletal History: Fractures GI Medical History: Esophageal Disorder, GERD History: No Pertinent History Psycho-Social History: Anxiety, Depression, Panic Disorder Male Reproductive Disorders: No Pertinent History Other Medical History: heat stroke, R foot/ankle fracture - Past Surgical History Past Surgical History: Yes Neuro Surgical History: No Pertinent History Cardiac: Cardiac Catheterization Respiratory: No Pertinent History Gastrointestinal: No Pertinent History Genitourinary: No Pertinent History Musculoskeletal: No Pertinent History Male Surgical History: No Pertinent History Other Surgical History: uvula removed. carpal tunnel right hand - Social History Smoking Status: Former smoker Exposure to second hand smoke: Yes Alcohol Use: None Drug Use: none Patient Lives Alone: Yes Significant Family History: heart disease, diabetes, hypertension - Nursing Vital Signs Nursing Vital Signs: Initial Vital Signs Temperature 98.0 F 12/01/19 16:47 Pulse Rate 88 12/01/19 16:47 Respiratory Rate 18 12/01/19 16:47 Blood Pressure 166/74 12/01/19 16:47 O2 Sat by Pulse Oximetry 92 L 12/01/19 16:47 Pain Scale Pain Intensity 2 - Physical Exam General Appearance: obese Eye Exam: PERRL/EOMI, No scleral icterus, No pale conjunctivae, No EOM palsy/ anisocoria Ears, Nose, Throat Exam: normal ENT inspection Neck Exam: normal inspection, non-tender, supple, No meningismus Respiratory Exam: normal breath sounds Cardiovascular Exam: regular rate/rhythm, normal heart sounds, normal peripheral pulses, capillary refill <2 sec, No murmur, No friction rub, No gallop Gastrointestinal/Abdomen Exam: soft, normal bowel sounds, No tenderness, No distention, No mass, No guarding, No ecchymosis Male Genitalia Exam: normal genitalia Rectal Exam: deferred Back Exam: other (Abrasion and mild tenderness to the left parathoracic and lumbar spinous region, no midline spine tenderness) Extremity Exam: other (Specialist Physician strength 4+ bilaterally, plantar flexion and dorsiflexion 4+ bilaterally) Neurologic Exam: alert, oriented x 3, cooperative, civil attorney II-XII nml as tested, normal mood/affect Skin Exam: normal color, other (Abrasion and mild tenderness to the left parathoracic and lumbar spinous region, no midline spine tenderness) SpO2 Interpretation: normal SpO2: 98 O2 Delivery: Room Air - Course Nursing assessment & vital signs reviewed: Yes EKG Interpreted by Me: RATE, NORMAL AXIS, NORMAL INTERVALS, NORMAL QRS, Other ( Normal sinus rhythmVentricular rate 70 bpm ID interval 124 ms, QRS duration 86 ms, QT/QTc 354/4 1 ms, no evidence of acute myocardial ischemia or injury) - Radiology Exams Chest X-ray Interpretation: Interpreted by me, Reviewed by me, Negative (No acute cardiopulmonary pathology. Awaiting formal radiology review) Ordered Tests: Active Orders 24 hr Category Date Time Status Timber Framer STAT Care 12/01/19 17:30 Active EKG-ER Only STAT Care 12/01/19 17:29 Active IV Insertion STAT Care 12/01/19 17:[address] in Observation ROUTINE Care 12/01/19 19:44 Active Pulse Oximetry (ED) STAT Care 12/01/19 17:29 Active CHEST 2 VIEWS (PA AND LAT) Stat Exams 12/01/19 17:30 Taken BMP Stat Lab 12/01/19 17:05 Completed CBC W DIFF Stat Lab 12/01/19 17:05 Completed D-DIMER QUANTITATIVE Stat Lab 12/01/19 17:05 Completed MAGNESIUM Stat Lab 12/01/19 17:05 Completed NT PRO BNP Stat Lab 12/01/19 18:15 Completed TROPONIN Stat Lab 12/01/19 17:05 Completed UA W/RFX UR CULTURE Stat Lab 12/01/19 17:54 Completed Transfer Order Routine Transfer 12/01/19 Ordered Lab/Rad Data: Laboratory Result Diagrams 12/01/19 17:05 12/01/19 17:05 Laboratory Results 12/01/19 12/01/19 12/01/19 Range/Units 18:15 17:54 17:05 WBC (4.0-10.5) K/mm3 RBC (4.1-5.6) M/mm3 Hgb (12.5-18.0) gm/dl Hct (42-50) % MCV (78-100) fl MCH (26-32) pg MCHC (32-36) g/dl RDW (11.5-14.0) % Plt Count (150-450) K/mm3 MPV (7.5-11.0) fl Gran % (36.0-66.0) % Eos # (Auto) (0-0.5) Absolute Lymphs (auto) (1.0-4.6) Absolute Monos (auto) (0.0-1.3) Lymphocytes % (24.0-44.0) % Monocytes % (0.0-12.0) % Eosinophils % (0.00-5.0) % Basophils % (0.0-0.4) % Absolute Granulocytes (1.4-6.9) Basophils # (0-0.4) D-Dimer < 215 L (215-500) ng/mL Sodium (137-145) mmol/L Potassium (3.5-5.1) mmol/L Chloride (98-107) mmol/L Carbon Dioxide (22-30) mmol/L Anion Gap (5-15) MEQ/L BUN (9-20) mg/dL Creatinine (0.66-1.25) mg/dL Estimated GFR ML/MIN Glucose (74-106) mg/dL Calcium (8.4-10.2) mg/dL Magnesium (1.6-2.3) mg/dL Troponin I (0.000-0.034) ng/mL NT-Pro-B Natriuret Pep 84.2 (0-900) pg/mL Urine Color YELLOW (YELLOW) Urine Appearance CLEAR (CLEAR) Urine pH 6.0 (5-6) Ur Specific [place] 1.023 (1.005-1.025) Urine Protein NEGATIVE (Negative) Urine Ketones SMALL (NEGATIVE) Urine Blood NEGATIVE (0-5) Bonilla/ul Urine Nitrite NEGATIVE (NEGATIVE) Urine Bilirubin NEGATIVE (NEGATIVE) Urine Urobilinogen NEGATIVE (0-1) mg/dL Ur Leukocyte Esterase NEGATIVE (NEGATIVE) Urine WBC (Auto) NONE (0-5) /HPF Urine RBC (Auto) NONE (0-2) /HPF U Epithel Cells (Auto) NONE (FEW) /HPF Urine Bacteria (Auto) NONE (NEGATIVE) /HPF Urine Mucus (Auto) SLIGHT (NEGATIVE) /HPF Urine Culture Reflexed NO (NO) Urine Glucose >=500 (NEGATIVE) mg/dL 12/01/19 12/01/19 Range/Units 17:05 17:05 WBC 7.6 (4.0-10.5) K/mm3 RBC 4.91 (4.1-5.6) M/mm3 Hgb 14.4 (12.5-18.0) gm/dl Hct 42.7 (42-50) % MCV 87.0 (78-100) fl MCH 29.3 (26-32) pg MCHC 33.7 (32-36) g/dl RDW 14.4 H (11.5-14.0) % Plt Count 196 (150-450) K/mm3 MPV 10.2 (7.5-11.0) fl Gran % 64.3 (36.0-66.0) % Eos # (Auto) 0.07 (0-0.5) Absolute Lymphs (auto) 1.93 (1.0-4.6) Absolute Monos (auto) 0.67 (0.0-1.3) Lymphocytes % 25.5 (24.0-44.0) % Monocytes % 8.9 (0.0-12.0) % Eosinophils % 0.9 (0.00-5.0) % Basophils % 0.4 (0.0-0.4) % Absolute Granulocytes 4.87 (1.4-6.9) Basophils # 0.03 (0-0.4) D-Dimer (215-500) ng/mL Sodium 140 (137-145) mmol/L Potassium 3.6 (3.5-5.1) mmol/L Chloride 104 (98-107) mmol/L Carbon Dioxide 25 (22-30) mmol/L Anion Gap 14.1 (5-15) MEQ/L BUN 20 (9-20) mg/dL Creatinine 1.17 (0.66-1.25) mg/dL Estimated GFR > 60.0 ML/MIN Glucose 124 H (74-106) mg/dL Calcium 9.3 (8.4-10.2) mg/dL Magnesium 1.9 (1.6-2.3) mg/dL Troponin I < 0.012 (0.000-0.034) ng/mL NT-Pro-B Natriuret Pep (0-900) pg/mL Urine Color (YELLOW) Urine Appearance (CLEAR) Urine pH (5-6) Ur Specific [place] (1.005-1.025) Urine Protein (Negative) Urine Ketones (NEGATIVE) Urine Blood (0-5) Bonilla/ul Urine Nitrite (NEGATIVE) Urine Bilirubin (NEGATIVE) Urine Urobilinogen (0-1) mg/dL Ur Leukocyte Esterase (NEGATIVE) Urine WBC (Auto) (0-5) /HPF Urine RBC (Auto) (0-2) /HPF U Epithel Cells (Auto) (FEW) /HPF Urine Bacteria (Auto) (NEGATIVE) /HPF Urine Mucus (Auto) (NEGATIVE) /HPF Urine Culture Reflexed (NO) Urine Glucose (NEGATIVE) mg/dL - Progress Progress: improved Progress Note: 12/01/19 20:08 Nontoxic appearance. The patient presents with syncope with an actual prodrome. He currently seems to have an abrasion to his back however my suspicion for bony injury is low at this time and therefore imaging was deferred. He has no evidence of head trauma and had no complaint of headache nor does he have any gross neuro deficits on exam and therefore my suspicion for neurocranial pathology as the etiology of his syncope is low at this time. He is currently wearing a Holter monitor which I feel can be interpreted later tomorrow during his observation hospital stay. His cardiac exam, specifically his heart tones sounded relatively normal however given that he has not had a cardiac echo today I felt it was warranted and admitted him for observation for undergo a 2D echocardiogram if he has not had one already as an outpatient. I did review his EMR, specifically hoccer and cannot find evidence of one in our record system. He has had an MRI as well as MRA of his brain within the last year that was relatively normal in addition to carotid Dopplers that relatively normal. His remaining laboratory work-up was relatively benign with the exception of some mild hyperglycemia which is likely reflective of his known history of diabetes mellitus. Mainly, he will undergo observation admission to the [facility] floor with telemetry for further evaluation and management by his primary care provider in the morning. Discussed with DrZacarias: Christopher (Ok with ordering a 2D echocardiogram and recommended obtaining an EEG and to have the patient's glucose checked regularly during his hospital stay) Will see patient in: hospital (observation) Counseled pt/family regarding: lab results, diagnosis, rad results - Departure Departure Disposition: Observation Clinical Impression: Syncope and collapse, Abrasion of back Condition: Stable Critical Care Time: No Referrals: BROOKLYN FRITZ MD [Primary Care Provider] -
[2019-12-01 18:33] LABS: Appearance CLEAR (CLEAR); Bilirubin NEGATIVE (NEGATIVE); Blood NEGATIVE Ery/ul (0-5); Glucose >=500 mg/dL (NEGATIVE); Ketones SMALL (NEGATIVE); Leukocyte Esterase NEGATIVE (NEGATIVE); Mucus SLIGHT /HPF (NEGATIVE); Nitrite NEGATIVE (NEGATIVE); Protein,Urine Dip NEGATIVE (Negative); Specific Gravity 1.023 (1.005-1.025); Urobilinogen NEGATIVE mg/dL (0-1)
[2019-12-01 18:34] LABS: ANION GAP 14.1 MEQ/L (5-15); BLOOD UREA NITROGEN 20 mg/dL (9-20); CHLORIDE 104 mmol/L (98-107); Calcium 9.3 mg/dL (8.4-10.2); Carbon Dioxide 25 mmol/L (22-30); Creatinine 1 1.17 mg/dL (0.66-1.25); Glucose 124 mg/dL (74-106); MAGNESIUM 1.9 mg/dL (1.6-2.3); Potassium 3.6 mmol/L (3.5-5.1); SODIUM 140 mmol/L (137-145)
[2019-12-01 18:37] LABS: TROPONIN < 0.012 ng/mL (0.000-0.034)
[2019-12-02 05:24] LABS: Hematocrit 43.1 % (42-50); Hemoglobin 14.4 gm/dl (12.5-18.0); Mean Cell Volume 86.9 fl (78-100); Mean Corpuscular Hgb Concent. 33.4 g/dl (32-36); Mean Platelet Volume 9.6 fl (7.5-11.0); Platelet Count 179 K/mm3 (150-450); Red Blood Count 4.96 M/mm3 (4.1-5.6); Red Cell Distribution Width 14.2 % (11.5-14.0); White Blood Count 5.6 K/mm3 (4.0-10.5)
[2019-12-02 05:38] LABS: ALKALINE PHOSPHATASE 50 U/L (38-126); ANION GAP 11.6 MEQ/L (5-15); BLOOD UREA NITROGEN 18 mg/dL (9-20); CHLORIDE 105 mmol/L (98-107); Calcium 9.2 mg/dL (8.4-10.2); Carbon Dioxide 26 mmol/L (22-30); Creatinine 1 0.97 mg/dL (0.66-1.25); Glucose 89 mg/dL (74-106); Potassium 4.1 mmol/L (3.5-5.1); SGOT/AST 22 U/L (17-59); SGPT/ALT 40 U/L (0-50); SODIUM 139 mmol/L (137-145); Total Protein 6.8 g/dL (6.3-8.2)
--- NOTE | 2019-12-02 08:55 | XRAY ---
Indication: Syncopal episode. Comparison: September 12, 2019. PA/lateral chest now demonstrates mild left infrahilar infiltrate versus atelectasis. Remaining lungs clear again with incidental calcified granulomas largest left mid lung. Heart and mediastinal structures within normal limits. Bony thorax intact again with mild degenerative changes. Impression: 1. Left infrahilar infiltrate/atelectasis. Correlate clinically. 2. Again evidence for old granulomatous disease. Comment: Left infiltrate/atelectasis not reported by the interpreting ER clinician. Telephone report given to Dr. Ospina at 0850 hours on December 02, 2019.
--- NOTE | 2019-12-02 09:28 | PCM.HP ---
History of Present Illness - Chief Complaint Chief Complaint: syncope and collapse, abrasion to back History of Present Illness: is a 54 year old male who presented to the ER yesterday after a syncopal event, he became dizzy and lightheaded upon standing and blacked out, he jocelyne feeling severely fatigued or disoriented after the incident, he has been having dizzy episodes and symptoms for the last several months, had MRI/ MRA head 08/2019, currently has on a holter monitor and was in place when the incident occurred. He sees Dr Paiz, has had a cath in the past. - Review of Systems Constitutional: No Fever, No Chills Respiratory: No Cough, No Short Of Breath Cardiac: Syncope, No Chest Pain, No Edema Abdominal/Gastrointestinal: No Abdominal Pain, No Nausea, No Vomiting, No Diarrhea Genitourinary Symptoms: No Dysuria Psychological: No Symptoms Medications & Allergies Home Medications: Home Medication List Rosuvastatin Calcium [Crestor] 40 mg PO DAILY #0 tablet 07/31/14 [Rx Confirmed 12/01/19] Metformin HCl 1000 mg [Glucophage 1000 MG] 1,000 mg PO BID 05/17/15 [History Confirmed 12/01/19] Nitroglycerin [Nitrostat] 0.4 mg SL Q5MIN PRN MR X 3 PRN 07/03/15 [History Confirmed 12/01/19] Carvedilol [Coreg] 25 mg PO BID 05/07/17 [History Confirmed 12/01/19] Famotidine 20 mg [Pepcid 20 MG] 40 mg PO BID 05/26/19 [History Confirmed 12/01/19] Empagliflozin [Jardiance] 10 mg PO DAILY 09/12/19 [History Confirmed 12/01/19] Ezetimibe 10 mg PO DAILY 09/12/19 [History Confirmed 12/01/19] Insulin Aspart [Novolog] 100 unit SQ DAILY 09/12/19 [History Confirmed 12/01/19] Liraglutide [Victoza 2-Vasile] 1.8 mg SQ DAILY 09/12/19 [History Confirmed 12/01/19 ] Naproxen 375 mg [Naprosyn 375 mg] 375 mg PO Q8H #30 tablet 09/12/19 [Rx Confirmed 12/01/19] Allergies/Adverse Reactions: Allergies Allergy/AdvReac Type Severity Reaction Status Date / Time No Known Drug Allergies Allergy Verified 05/10/19 15:36 - Past Medical History Past Medical History: Yes Neurological History: Other ENT History: No Pertinent History Cardiac History: High Cholesterol, Hypertension Respiratory History: Other Endocrine Medical History: Diabetes Type II Musculoskelatal History: Fractures GI Medical History: Esophageal Disorder, GERD History: No Pertinent History Pyscho-Social History: Depression, Panic Disorder Male Reproductive Disorders: No Pertinent History, Prostate Problems Comment: heat stroke, R foot/ankle fracture - Past Surgical History Past Surgical History: Yes Neuro Surgical History: No Pertinent History Cardiac History: Cardiac Catheterization Respiratory Surgery: No Pertinent History GI Surgical History: No Pertinent History Genitourinary Surgical Hx: No Pertinent History Musculskeletal Surgical Hx: No Pertinent History Male Surgical History: No Pertinent History Other Surgical History: uvula removed. carpal tunnel right hand - Social History Smoking Status: Former smoker Exposure to second hand smoke: Yes Alcohol: None Drug Use: none Significant Family History: heart disease, diabetes, hypertension - Physical Exam Vital Signs: Vital Signs - 24 hr Temp Pulse Resp BP Pulse Ox 12/02/19 07:16 97.7 F 78 20 148/71 97 12/02/19 04:00 97.7 F 76 15 161/83 97 12/02/19 01:16 78 16 95 12/02/19 00:00 98.1 F 93 H 20 131/67 97 12/01/19 23:25 97.9 F 89 20 171/82 95 12/01/19 20:15 88 16 144/69 96 12/01/19 20:10 98 12/01/19 19:00 90 18 178/83 96 12/01/19 17:53 78 18 160/74 98 12/01/19 17:50 97 12/01/19 16:47 98.0 F 88 18 166/74 92 L General Appearance: no apparent distress, alert Neurologic Exam: alert, oriented x 3, cooperative, normal mood/affect, nml cerebellar function, nml station & gait, sensation nml, No motor deficits Eye Exam: PERRL/EOMI, eyes nml inspection Respiratory Exam: normal breath sounds, lungs clear, No respiratory distress Cardiovascular Exam: regular rate/rhythm, normal heart sounds, normal peripheral pulses Gastrointestinal/Abdomen Exam: soft, normal bowel sounds, No tenderness, No mass Skin Exam: normal color, warm, dry, No rash Results - Labs Lab/Micro Results: Accuchecks Date 12/02/19 Date 12/02/19 Time 05:59 Time 00:00 Accucheck Value: 92 Accucheck Value: 103 Lab Results-Last 24 Hours 12/01/19 12/01/19 12/01/19 Range/Units 17:05 17:05 17:05 WBC 7.6 (4.0-10.5) K/mm3 RBC 4.91 (4.1-5.6) M/mm3 Hgb 14.4 (12.5-18.0) gm/dl Hct 42.7 (42-50) % MCV 87.0 (78-100) fl MCH 29.3 (26-32) pg MCHC 33.7 (32-36) g/dl RDW 14.4 H (11.5-14.0) % Plt Count 196 (150-450) K/mm3 MPV 10.2 (7.5-11.0) fl Gran % 64.3 (36.0-66.0) % Eos # (Auto) 0.07 (0-0.5) Absolute Lymphs (auto) 1.93 (1.0-4.6) Absolute Monos (auto) 0.67 (0.0-1.3) Lymphocytes % 25.5 (24.0-44.0) % Monocytes % 8.9 (0.0-12.0) % Eosinophils % 0.9 (0.00-5.0) % Basophils % 0.4 (0.0-0.4) % Absolute Granulocytes 4.87 (1.4-6.9) Basophils # 0.03 (0-0.4) D-Dimer < 215 L (215-500) ng/mL Sodium 140 (137-145) mmol/L Potassium 3.6 (3.5-5.1) mmol/L Chloride 104 (98-107) mmol/L Carbon Dioxide 25 (22-30) mmol/L Anion Gap 14.1 (5-15) MEQ/L BUN 20 (9-20) mg/dL Creatinine 1.17 (0.66-1.25) mg/dL Estimated GFR > 60.0 ML/MIN Glucose 124 H (74-106) mg/dL Calcium 9.3 (8.4-10.2) mg/dL Magnesium 1.9 (1.6-2.3) mg/dL Total Bilirubin (0.2-1.3) mg/dL AST (17-59) U/L ALT (0-50) U/L Alkaline Phosphatase (38-126) U/L Troponin I < 0.012 (0.000-0.034) ng/mL NT-Pro-B Natriuret Pep (0-900) pg/mL Serum Total Protein (6.3-8.2) g/dL Albumin (3.5-5.0) g/dL Urine Color (YELLOW) Urine Appearance (CLEAR) Urine pH (5-6) Ur Specific [place] (1.005-1.025) Urine Protein (Negative) Urine Ketones (NEGATIVE) Urine Blood (0-5) Bonilla/ul Urine Nitrite (NEGATIVE) Urine Bilirubin (NEGATIVE) Urine Urobilinogen (0-1) mg/dL Ur Leukocyte Esterase (NEGATIVE) Urine WBC (Auto) (0-5) /HPF Urine RBC (Auto) (0-2) /HPF U Epithel Cells (Auto) (FEW) /HPF Urine Bacteria (Auto) (NEGATIVE) /HPF Urine Mucus (Auto) (NEGATIVE) /HPF Urine Culture Reflexed (NO) Urine Glucose (NEGATIVE) mg/dL 12/01/19 12/01/19 12/02/19 Range/Units 17:54 18:15 04:50 WBC 5.6 (4.0-10.5) K/mm3 RBC 4.96 (4.1-5.6) M/mm3 Hgb 14.4 (12.5-18.0) gm/dl Hct 43.1 (42-50) % MCV 86.9 (78-100) fl MCH 29.0 (26-32) pg MCHC 33.4 (32-36) g/dl RDW 14.2 H (11.5-14.0) % Plt Count 179 (150-450) K/mm3 MPV 9.6 (7.5-11.0) fl Gran % (36.0-66.0) % Eos # (Auto) (0-0.5) Absolute Lymphs (auto) (1.0-4.6) Absolute Monos (auto) (0.0-1.3) Lymphocytes % (24.0-44.0) % Monocytes % (0.0-12.0) % Eosinophils % (0.00-5.0) % Basophils % (0.0-0.4) % Absolute Granulocytes (1.4-6.9) Basophils # (0-0.4) D-Dimer (215-500) ng/mL Sodium (137-145) mmol/L Potassium (3.5-5.1) mmol/L Chloride (98-107) mmol/L Carbon Dioxide (22-30) mmol/L Anion Gap (5-15) MEQ/L BUN (9-20) mg/dL Creatinine (0.66-1.25) mg/dL Estimated GFR ML/MIN Glucose (74-106) mg/dL Calcium (8.4-10.2) mg/dL Magnesium (1.6-2.3) mg/dL Total Bilirubin (0.2-1.3) mg/dL AST (17-59) U/L ALT (0-50) U/L Alkaline Phosphatase (38-126) U/L Troponin I (0.000-0.034) ng/mL NT-Pro-B Natriuret Pep 84.2 (0-900) pg/mL Serum Total Protein (6.3-8.2) g/dL Albumin (3.5-5.0) g/dL Urine Color YELLOW (YELLOW) Urine Appearance CLEAR (CLEAR) Urine pH 6.0 (5-6) Ur Specific [place] 1.023 (1.005-1.025) Urine Protein NEGATIVE (Negative) Urine Ketones SMALL (NEGATIVE) Urine Blood NEGATIVE (0-5) Bonilla/ul Urine Nitrite NEGATIVE (NEGATIVE) Urine Bilirubin NEGATIVE (NEGATIVE) Urine Urobilinogen NEGATIVE (0-1) mg/dL Ur Leukocyte Esterase NEGATIVE (NEGATIVE) Urine WBC (Auto) NONE (0-5) /HPF Urine RBC (Auto) NONE (0-2) /HPF U Epithel Cells (Auto) NONE (FEW) /HPF Urine Bacteria (Auto) NONE (NEGATIVE) /HPF Urine Mucus (Auto) SLIGHT (NEGATIVE) /HPF Urine Culture Reflexed NO (NO) Urine Glucose >=500 (NEGATIVE) mg/dL 12/02/19 Range/Units 04:50 WBC (4.0-10.5) K/mm3 RBC (4.1-5.6) M/mm3 Hgb (12.5-18.0) gm/dl Hct (42-50) % MCV (78-100) fl MCH (26-32) pg MCHC (32-36) g/dl RDW (11.5-14.0) % Plt Count (150-450) K/mm3 MPV (7.5-11.0) fl Gran % (36.0-66.0) % Eos # (Auto) (0-0.5) Absolute Lymphs (auto) (1.0-4.6) Absolute Monos (auto) (0.0-1.3) Lymphocytes % (24.0-44.0) % Monocytes % (0.0-12.0) % Eosinophils % (0.00-5.0) % Basophils % (0.0-0.4) % Absolute Granulocytes (1.4-6.9) Basophils # (0-0.4) D-Dimer (215-500) ng/mL Sodium 139 (137-145) mmol/L Potassium 4.1 (3.5-5.1) mmol/L Chloride 105 (98-107) mmol/L Carbon Dioxide 26 (22-30) mmol/L Anion Gap 11.6 (5-15) MEQ/L BUN 18 (9-20) mg/dL Creatinine 0.97 (0.66-1.25) mg/dL Estimated GFR > 60.0 ML/MIN Glucose 89 (74-106) mg/dL Calcium 9.2 (8.4-10.2) mg/dL Magnesium (1.6-2.3) mg/dL Total Bilirubin 0.40 (0.2-1.3) mg/dL AST 22 (17-59) U/L ALT 40 (0-50) U/L Alkaline Phosphatase 50 (38-126) U/L Troponin I (0.000-0.034) ng/mL NT-Pro-B Natriuret Pep (0-900) pg/mL Serum Total Protein 6.8 (6.3-8.2) g/dL Albumin 4.0 (3.5-5.0) g/dL Urine Color (YELLOW) Urine Appearance (CLEAR) Urine pH (5-6) Ur Specific [place] (1.005-1.025) Urine Protein (Negative) Urine Ketones (NEGATIVE) Urine Blood (0-5) [place]/ul Urine Nitrite (NEGATIVE) Urine Bilirubin (NEGATIVE) Urine Urobilinogen (0-1) mg/dL Ur Leukocyte Esterase (NEGATIVE) Urine WBC (Auto) (0-5) /HPF Urine RBC (Auto) (0-2) /HPF U Epithel Cells (Auto) (FEW) /HPF Urine Bacteria (Auto) (NEGATIVE) /HPF Urine Mucus (Auto) (NEGATIVE) /HPF Urine Culture Reflexed (NO) Urine Glucose (NEGATIVE) mg/dL Accuchecks Date 12/02/19 Date 12/02/19 Time 05:59 Time 00:00 Accucheck Value: 92 Accucheck Value: 103 - Radiology Impressions Radiology Exams & Impressions: Radiology Procedures Category Date Time Status CHEST 2 VIEWS (PA AND LAT) Stat Exams 12/01/19 17:30 Completed ECHO W/2D AND DOPPLER [US] Routine Exams 12/01/19 23:21 Ordered - Other Procedures and Tests Respiratory Therapy 12/02/19 09:22 EEG 41-60 Minutes (Normal) ONCE Assessment/Plan (1) Syncope and collapse Current Visit: Yes Status: Acute Assessment & Plan: extensive workup has been negative with MRI/MRA and carotid doppler, will consult Dr Paiz as he luckily had holter on during episode to see if any evidence of arrythmia. his blood sugar was not low and he had a meal just prior to this event making hypoglycemia unlikley as the culprit. Code(s): R55 - SYNCOPE AND COLLAPSE (2) Essential hypertension Current Visit: Yes Status: Acute Code(s): I10 - ESSENTIAL (PRIMARY) HYPERTENSION (3) Diabetes Current Visit: No Status: Acute Code(s): E11.9 - TYPE 2 DIABETES MELLITUS WITHOUT COMPLICATIONS
[2019-12-02] MEDS ORDERED: Nitrostat 0.4 MG Tablet SL PRN (10:11)
[2019-12-02] MEDS ORDERED: MEDICATION INTERVENTION PO SCH (10:45)
[2019-12-02] MEDS ORDERED: PATIENT OWN MEDICATION SQ SCH (10:45)
[2019-12-02] MEDS ORDERED: MEDICATION INTERVENTION MC SCH (10:45)
--- NOTE | 2019-12-02 12:11 | CONS ---
CONSULT DATE: 12/02/2019 BRIEF HISTORY: This is a 54 year-old male who was seen because of syncope. The incident happened yesterday when he got up and suddenly sat on the bed and as he started walking and apparently was on the phone with a friend, he passed out and sustained a superficial laceration across the back. His friend was able to get to him and when he regained consciousness he was cognizant of his environment. He recognized his friend right away. There was no bladder or bowel incontinence. He was then brought to the emergency room and subsequently admitted. He was on an event monitor. We are still waiting for transmission of rhythm strip during the event. The patient has intermittent chest pains consistent with effort. He has had previous cardiac catheterization. Results are not available at this time. He has never had a myocardial infarction. He has history of transient ischemic attack in the past. He is currently undergoing EEG. At the time of examination he was chest pain free. There has been no recurrences of "syncope". CARDIAC RISK FACTORS: Positive for diabetes. Positive for hypertension. Positive for hyperlipidemia. He quit smoking several years ago. FAMILY HISTORY: Positive for coronary artery disease. HOME MEDICATIONS: Amlodipine, carvedilol, Crestor, Cymbalta, Dexilant, famotidine, Glucophage, Jardiance, , lisinopril, insulin, nortriptyline, Trulicity, Tresiba, aspirin. PAST SURGICAL HISTORY: Removal of uvula. Prostatectomy. 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 No history of seizure disorder. No chronic headache. No visual disturbances. RESPIRATORY: No chronic cough. No hemoptysis. GI: Reflux symptoms, occasional constipation. No vomiting. No nausea. : Negative for dysuria or hematuria. He has some problems urine. PERIPHERAL VASCULAR: No history of DVT or claudication. MUSCULOSKELETAL: No significant degenerative joint disorder. SKIN: No active dermatological problems. HEMATOLOGY: No blood dyscrasia. SOCIAL HISTORY: He is a . 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 He denies any significant alcohol intake. PHYSICAL EXAMINATION: His blood pressure is 168/70 with heart rate of 80, respirations about 16. GENERAL: The patient is a middle aged male who is obese, alert, oriented who is not in any form of distress. HEENT: Unremarkable. NECK: No significant JVD. No carotid bruit. CHEST: The breath sounds are clear. CARDIAC: Heart tones are normal. No audible gallop. The rhythm is regular. No premature beats. ABDOMEN: Soft with normal bowel sounds. No bruit. EXTREMITIES: No significant edema with 1+ posterior tibial pulse. LAB DATA AND DIAGNOSTIC TESTS: EKG showed normal sinus rhythm. No significant ST displacement. The troponin I is normal. CBC showed hemoglobin 14.4. The glomerular filtration rate is greater than 60. Serum electrolytes are normal. Liver enzymes are normal. D-dimer 215. IMPRESSION: In essence the patient apparently had: 1) Syncopal attack. We are going to review the rhythm strip that was obtained from event monitor. There has been no evidence of myocardial injury. I will review his echocardiogram to see whether there is any significant wall motion abnormality or any valvular lesions. Since the patient has multiple cardiac risk factors, we are going to go ahead and schedule him for pharmacologic stress test to rule out ischemia since he has history of syncope. This can be done as an outpatient. 2) Hypertension. 3) Hyperlipidemia. 4) Diabetes. We are also going to get orthostatic blood pressure. The EEG is now pending. I will follow up with you.
--- NOTE | 2019-12-02 12:16 | ECHO ---
Transthoracic echocardiographic examination and color Doppler was done on 12/01/2019. INDICATION: Syncope. IMPRESSION: THE STUDY IS SOMEWHAT LIMITED BECAUSE OF A LIMITED ACOUSTIC WINDOW. The left ventricle is only partially visualized. There were no gross wall motion abnormalities. The estimated global left ventricular ejection fraction is around 50 to 60%. The left ventricular thickness appears to be normal. The mitral valve was not well visualized. There is no significant gradient across the left ventricular outflow tract. Right side chambers are within normal. The tissue Doppler study of the lateral mitral annulus is suggestive of left ventricular diastolic dysfunction.
[2019-12-02] MEDS: Pepcid 20 MG PO SCH ×2 (12:18→21:14)
[2019-12-02] MEDS: COREG 12.5 MG PO SCH ×2 (12:18→21:14)
[2019-12-02] MEDS: ENOXAPARIN SODIUM SQ SCH (12:18)
[2019-12-02] MEDS: ZOCOR 20MG PO SCH (12:19)
[2019-12-02] MEDS: Zetia 10 MG PO SCH (12:19)
[2019-12-02] MEDS ORDERED: NON-FORMULARY ITEM (Carvedilol [Coreg] 25 MG) PO SCH (22:00)
[2019-12-03 05:13] LABS: Absolute Neutrophil Ct (ANC) 3.15 (1.4-6.9); BASOPHIL % 0.4 % (0.0-0.4); Basophil (Absolute #) 0.02 (0-0.4); Eosinophil % 1.4 % (0.00-5.0); Eosinophil (Absolute #) 0.08 (0-0.5); Hematocrit 44.2 % (42-50); Hemoglobin 14.6 gm/dl (12.5-18.0); Lymphocyte (Absolute #) 1.69 (1.0-4.6); Lymphocytes % 30.2 % (24.0-44.0); Mean Corpuscular Hemoglobin 28.7 pg (26-32); Mean Platelet Volume 9.6 fl (7.5-11.0); Monocyte (Absolute #) 0.66 (0.0-1.3); Monocytes % 11.8 % (0.0-12.0); Neutrophil % 56.2 % (36.0-66.0); Platelet Count 171 K/mm3 (150-450); Red Blood Count 5.08 M/mm3 (4.1-5.6); Red Cell Distribution Width 14.6 % (11.5-14.0); White Blood Count 5.6 K/mm3 (4.0-10.5)
[2019-12-03 05:56] LABS: ANION GAP 8.8 MEQ/L (5-15); BLOOD UREA NITROGEN 14 mg/dL (9-20); CHLORIDE 105 mmol/L (98-107); Carbon Dioxide 30 mmol/L (22-30); Creatinine 1 0.83 mg/dL (0.66-1.25); Glucose 109 mg/dL (74-106); SODIUM 140 mmol/L (137-145); TROPONIN < 0.012 ng/mL (0.000-0.034)
[2019-12-03] MEDS ORDERED: TYLENOL 325 MG PO PRN (06:56)
--- NOTE | 2019-12-03 08:23 | PCM.DS ---
Discharge Summary Date of Admission: 12/01/19 21:14 Admitting Physician: BROOKLYN FRITZ Consults: Consults on Case 12/02/19 09:20 Consult Cardiology ROUTINE Primary Care Provider: BROOKLYN FRITZ Allergies Allergies No Known Drug Allergies Allergy (Verified 05/10/19 15:36) Hospital Summary - Hospital Course Hospital Course: patient was admitted following a syncopal event, has been complaining of presyncopal episodes/lightheadedness and has had fairly extensive outpatient workup including MRI/MRA head, carotid dopplers and labs. all workup has been negative, no evidence of [place] following admission, EEG is normal. had event monitor on during episode, Dr Guerrero consulted. he seems to be stable and symptom free here in the hospital. - Vitals & Intake/Output Vital Signs: Vital Signs Temperature 98.1 F 12/03/19 06:43 Pulse Rate 74 12/03/19 06:43 Respiratory Rate 18 12/03/19 06:43 Blood Pressure 148/65 12/03/19 06:43 O2 Sat by Pulse Oximetry 97 12/03/19 06:43 Intake & Output: Intake & Output 11/30/19 12/01/19 12/02/19 12/03/19 11:59 11:59 11:59 11:59 Intake Total 1080 1680 Output Total 2150 3425 Balance -1070 -1745 Weight 116.7 kg 115.3 kg - Lab Result Diagrams: 12/03/19 04:57 12/03/19 04:57 Lab Results-Last 24 Hrs: Accuchecks Date 12/03/19 Date 12/03/19 Date 12/02/19 Date 12/02/19 Time 06:00 Time 00:00 Time 16:30 Time 11:30 Accucheck Value: 116 Accucheck Value: 89 Accucheck Value: 182 Accucheck Value: 134 Lab Results-Last 24 Hours 12/02/19 12/03/19 12/03/19 Range/Units 09:23 04:57 04:57 WBC 5.6 (4.0-10.5) K/mm3 RBC 5.08 (4.1-5.6) M/mm3 Hgb 14.6 (12.5-18.0) gm/dl Hct 44.2 (42-50) % MCV 87.0 (78-100) fl MCH 28.7 (26-32) pg MCHC 33.0 (32-36) g/dl RDW 14.6 H (11.5-14.0) % Plt Count 171 (150-450) K/mm3 MPV 9.6 (7.5-11.0) fl Gran % 56.2 (36.0-66.0) % Eos # (Auto) 0.08 (0-0.5) Absolute Lymphs (auto) 1.69 (1.0-4.6) Absolute Monos (auto) 0.66 (0.0-1.3) Lymphocytes % 30.2 (24.0-44.0) % Monocytes % 11.8 (0.0-12.0) % Eosinophils % 1.4 (0.00-5.0) % Basophils % 0.4 (0.0-0.4) % Absolute Granulocytes 3.15 (1.4-6.9) Basophils # 0.02 (0-0.4) Sodium 140 (137-145) mmol/L Potassium 4.0 (3.5-5.1) mmol/L Chloride 105 (98-107) mmol/L Carbon Dioxide 30 (22-30) mmol/L Anion Gap 8.8 (5-15) MEQ/L BUN 14 (9-20) mg/dL Creatinine 0.83 (0.66-1.25) mg/dL Estimated GFR > 60.0 ML/MIN Glucose 109 H (74-106) mg/dL Calcium 9.0 (8.4-10.2) mg/dL Troponin I < 0.012 < 0.012 (0.000-0.034) ng/mL Micro Results-Entire Visit: Accuchecks Date 12/03/19 Date 12/03/19 Date 12/02/19 Date 12/02/19 Time 06:00 Time 00:00 Time 16:30 Time 11:30 Accucheck Value: 116 Accucheck Value: 89 Accucheck Value: 182 Accucheck Value: 134 - Radiology Exams Ordered Rad Exams-Entire Visit: Radiology Procedures Category Date Time Status CHEST 2 VIEWS (PA AND LAT) Stat Exams 12/01/19 17:30 Completed ECHO W/2D AND DOPPLER [US] Routine Exams 12/02/19 10:00 Draft - Procedures and Test Procedures and Tests throughout Hospitalization: Therapy Orders & Screens 12/01/19 23:21 EKG REPEAT IN AM Comment: 12/02/19 00:36 RT Screen per Nursing Assess ONCE Comment: Protocol Order Physician Instructions: Greater than 3 points order RT Admission Screen Reason For Exam: Triggered on Admission Diagnosis: syncope and collapse, abrasion to back Diagnosis: syncope and collapse, abrasion to back Pneumonia: No Home O2: Yes Asthma: No CHF: No Home CPAP/BIPAP: No Home Nebs/MDI: Yes Total Points: 10 12/02/19 01:16 Respiratory Therapy Consult ONCE Comment: Reason For Exam: Diagnosis: syncope and collapse, abrasion to back 12/02/19 09:22 EEG 41-60 Minutes (Normal) ONCE Comment: Reason For Exam: Diagnosis: syncope and collapse, abrasion to back Discharge Exam General Appearance: no apparent distress, obese Neurologic Exam: alert, oriented x 3, cooperative Respiratory Exam: normal breath sounds, lungs clear, No respiratory distress Cardiovascular Exam: regular rate/rhythm, normal heart sounds Gastrointestinal/Abdomen Exam: soft, No tenderness, No mass Extremity Exam: normal inspection, normal range of motion Skin Exam: normal color, warm, dry Final Diagnosis/Problem List - Final Discharge Diagnosis/Problem (1) Syncope and collapse Current Visit: Yes Status: Acute Assessment & Plan: extensive workup with no obvious etiology, Dr Guerrero to review event monitor, might consider outpatient tilt-table testing. MRI head and EEG are negative Code(s): R55 - SYNCOPE AND COLLAPSE (2) Essential hypertension Current Visit: Yes Status: Acute Code(s): I10 - ESSENTIAL (PRIMARY) HYPERTENSION (3) Diabetes Current Visit: No Status: Acute Code(s): E11.9 - TYPE 2 DIABETES MELLITUS WITHOUT COMPLICATIONS - Discharge Disposition: Home, Self-Care Condition: Stable Prescriptions: Continue Rosuvastatin Calcium [Crestor] 40 mg PO DAILY #0 tablet Metformin HCl 1000 mg [Glucophage 1000 MG] 1,000 mg PO BID Nitroglycerin [Nitrostat] 0.4 mg SL Q5MIN PRN MR X 3 PRN PRN Reason: Chest Pain Carvedilol [Coreg] 25 mg PO BID Famotidine 20 mg [Pepcid 20 MG] 40 mg PO BID Liraglutide [Victoza 2-Vasile] 1.8 mg SQ DAILY Empagliflozin [Jardiance] 10 mg PO DAILY Insulin Aspart [Novolog] 100 unit SQ DAILY Ezetimibe 10 mg PO DAILY Naproxen 375 mg [Naprosyn 375 mg] 375 mg PO Q8H #30 tablet Follow up with: BROOKLYN FRITZ MD [Primary Care Provider] - 1 Week CHUCKIE GUERRERO [ACTIVE STAFF] - 1 Week
[2019-12-03] MEDS: COREG 12.5 MG PO SCH (09:34)
[2019-12-03] MEDS: ZOCOR 20MG PO SCH (09:34)
[2019-12-03] MEDS: Pepcid 20 MG PO SCH (09:35)
[2019-12-03] MEDS: Zetia 10 MG PO SCH (09:35)
[2019-12-03] MEDS: ENOXAPARIN SODIUM SQ SCH (10:00)
[2019-12-03] MEDS ORDERED: NovoLOG Insulin SQ SCH (10:00)
[2019-12-03] MEDS ORDERED: NON-FORMULARY ITEM (Rosuvastatin Calcium [Crestor] 40 MG) PO SCH (10:00)
[2019-12-03] MEDS ORDERED: DULCOLAX 5 MG PO PRN (13:04)
[2019-12-03 19:11] VITALS: BP 149/70; PULSE 72; O2SAT 98
== END 2019-12-03 19:06 | disposition home or self-care (01) ==
LOC: ED 16:24 → MED SURG 21:14
PROVIDERS: ADMIT Family Medicine; ATTEND Family Medicine
DX: R55 Syncope and collapse (principal); I10 Essential (primary) hypertension; E11.9 Type 2 diabetes mellitus without complications; R42 Dizziness and giddiness; S30.810A Abrasion of lower back and pelvis, initial encounter; R07.9 Chest pain, unspecified; E78.00 Pure hypercholesterolemia, unspecified; W19.XXXA Unspecified fall, initial encounter; Y92.009 Unspecified place in unspecified non-institutional (private) residence as the place of occurrence of the external cause; Z86.73 Personal history of transient ischemic attack (TIA), and cerebral infarction without residual deficits; Z79.899 Other long term (current) drug therapy
CPT/HCPCS: 36000; 36415; 71046; 80048; 80053; 81001; 82962; 83036; 83735; 83880; 84484; 85025; 85027; 85379; 93005; 93041; 93268; 93306; 94760; 95812; 99285; G0378; J1650; A9270-GY

== ENCOUNTER 2020-04-20 20:31 | Emergency (ER) | payer MEDICARE ==
[2020-04-20] MEDS ORDERED: TORAdol 30 mg Injection IM ONE (20:52)
--- NOTE | 2020-04-20 21:03 | ERPHSYRPT ---
- History of Present Illness Time Seen by Provider: 04/20/20 20:50 Source: patient Exam Limitations: no limitations Patient Subjective Stated Complaint: pt states after moving furniture today he has been having pain in his lt shoulder radiating down his arm to his elbows and sometimes to his wrist. worse with movement Triage Nursing Assessment: pt alert and oriented, answers questions approp. pt ambulatory with steady gait noted, respirations nonlabored. skin warm and dry. tenderness noted to lt shouder and upper arm. pt splinting lt arm against his abd. pt grimacing with movement of lt arm and shoulder. radial pulse, cap refill, and sensation to lt wnl. Physician History: Patient is a 55-year-old male presents to our ED with complaints of left shoulder pain. Patient believes he may have dislocated his shoulder. Pain started today after moving furniture. Patient is been moving furniture all day long. Pain described as an ache that is localized to the posterior lateral deltoid. Pain occasionally shoots down his left upper arm. And into his forearm. Pain reproduced with movement and palpation. Pain improved with rest. No associated chest pain or shortness of breath no dizziness. No nausea vomit ing or diaphoresis. Symptoms are mild to moderate in intensity. No blunt trauma. Patient voices no other complaints at this time. Occurred: just prior to arrival Method of Injury: other (Repetitive motion) Quality: constant, aching Severity of Pain-Max: moderate Severity of Pain-Current: mild (Time 1) Extremities Pain Location: shoulder: left, arm: left Modifying Factors: Improves With: movement, rest Associated Symptoms: No chest discomfort, No chest pain, No dyspnea, No nausea Allergies/Adverse Reactions: No Known Drug Allergies Allergy (Verified 04/20/20 20:55) Home Medications: Metformin HCl 1000 mg [Glucophage 1000 MG] 1,000 mg PO BID 05/17/15 [History] Nitroglycerin [Nitrostat] 0.4 mg SL Q5MIN PRN MR X 3 PRN 07/03/15 [History] Carvedilol [Coreg] 25 mg PO BID 05/07/17 [History] Famotidine 20 mg [Pepcid 20 MG] 40 mg PO BID 05/26/19 [History] Empagliflozin [Jardiance] 10 mg PO DAILY 09/12/19 [History] Ezetimibe 10 mg PO DAILY 09/12/19 [History] Insulin Aspart [Novolog] 100 unit SQ DAILY 09/12/19 [History] Liraglutide [Victoza 2-Vasile] 1.8 mg SQ DAILY 09/12/19 [History] Hx Tetanus, Diphtheria Vaccination/Date Given: Yes (2018) Hx Influenza Vaccination/Date Given: No Hx Pneumococcal Vaccination/Date Given: No Immunizations Up to Date: Yes Travel Risk - International Travel Have you traveled outside of the country in past 3 weeks: No - Coronavirus Screening Are you exhibiting any of the following symptoms?: No Close contact with a COVID-19 positive Pt in past 14-21 Days: No - Review of Systems Constitutional: No Symptoms, No Fever, No Chills Eyes: No Symptoms Ears, Nose, & Throat: No Symptoms Respiratory: No Symptoms, No Cough, No Dyspnea Cardiac: No Symptoms, No Chest Pain, No Edema, No Syncope Abdominal/Gastrointestinal: No Symptoms, No Abdominal Pain, No Nausea, No Vomiting, No Diarrhea Genitourinary Symptoms: No Symptoms, No Dysuria Musculoskeletal: No Symptoms, No Back Pain, No Neck Pain Skin: No Symptoms, No Rash Neurological: No Symptoms, No Dizziness, No Focal Weakness, No Sensory Changes Psychological: No Symptoms Endocrine: No Symptoms Hematologic/Lymphatic: No Symptoms Immunological/Allergic: No Symptoms All Other Systems: Reviewed and Negative - Past Medical History Pertinent Past Medical History: Yes Neurological History: Migraines, Seizures ENT History: No Pertinent History Cardiac History: Angina, Hypertension Respiratory History: COPD, Sleep Apnea Endocrine Medical History: Diabetes Type II Musculoskeletal History: Osteoarthritis GI Medical History: Esophageal Disorder, GERD History: No Pertinent History Psycho-Social History: Depression, Panic Disorder Male Reproductive Disorders: No Pertinent History, Prostate Problems Other Medical History: He notes for the past year being light headed when he stood up. Seizures as a kid. Has a diabetic pump, refuses to use the C-pap. 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 - Past Surgical History Past Surgical History: Yes Neuro Surgical History: No Pertinent History Cardiac: Cardiac Catheterization Respiratory: No Pertinent History Gastrointestinal: No Pertinent History Genitourinary: No Pertinent History Musculoskeletal: No Pertinent History Male Surgical History: No Pertinent History Other Surgical History: uvula removed. carpal tunnel right hand - Social History Smoking Status: Former smoker Exposure to second hand smoke: No Alcohol Use: None Drug Use: none Patient Lives Alone: No Significant Family History: heart disease, diabetes, hypertension - Nursing Vital Signs Nursing Vital Signs: Initial Vital Signs Temperature 98.5 F 04/20/20 20:44 Pulse Rate 78 04/20/20 20:44 Respiratory Rate 18 04/20/20 20:44 Blood Pressure 156/87 04/20/20 20:44 O2 Sat by Pulse Oximetry 97 04/20/20 20:44 Pain Scale Pain Intensity 5 - Physical Exam General Appearance: no apparent distress, alert Eyes, Ears, Nose, Throat Exam: moist mucous membranes Neck Exam: non-tender, supple Cardiovascular/Respiratory Exam: chest non-tender, normal breath sounds, regular rate/rhythm, no respiratory distress Abdominal Exam: non-tender, No guarding Back Exam: normal inspection, No vertebral tenderness Shoulder Exam: normal inspection, no evidence of injury, limited ROM, pain, soft tissue tenderness, No swelling Elbow/Forearm Exam: normal inspection, soft tissue tenderness, No swelling (Left upper extremities neurovascular intact distally. Compartments are soft. Cap refill less than 2 seconds. Pain reproduced with active motion and palpation particularly to the posterior lateral deltoid. No signs of blunt trauma.) Hand Exam: normal inspection Neuro/Tendon Exam: normal sensation, normal motor functions, no evidence tendon injury Mental Status Exam: alert, oriented x 3, cooperative, No depressed affect Skin Exam: normal color, warm, dry SpO2 Interpretation: normal SpO2: 97 O2 Delivery: Room Air - Course Nursing assessment & vital signs reviewed: Yes - Radiology Exams Shoulder X-ray Interpretation: Interpreted by me (No fractures or dislocations. Osteopenia, tendon calcifications degenerative joint changes) Humerus X-ray Interpretation: Interpreted by me (No fractures dislocations. Osteopenia, tendon calcifications degenerative joint changes) Ordered Tests: Active Orders 24 hr Category Date Time Status Nursing [Miscellaneous Nursing Order] ROUTINE Care 04/20/20 20:52 Active HUMERUS Stat Exams 04/20/20 20:54 Taken SHOULDER Stat Exams 04/20/20 20:54 Taken Medication Summary Discontinued Medications Generic Name Dose Route Start Last Admin Trade Name Freq PRN Reason Stop Dose Admin Ketorolac Tromethamine 30 mg 04/20/20 20:52 04/20/20 21:23 Toradol 30 Mg Injection IM 07/15/20 20:53 30 mg STAT ONE Administration Ketorolac Tromethamine Confirm 04/20/20 21:20 Toradol 30 Mg Injection Administered 04/20/20 21:21 Dose 30 mg .ROUTE .STK-MED ONE - Progress Progress: improved Progress Note: 04/20/20 21:04 Patient reassessed. Pain improved. We discussed screening EKG with patient and he x-ray negative for acute pathology. No fracture or dislocation. Patient placed in the left upper extremity sling for comfort. Will discharge patient home. Patient agrees to follow-up with his primary care doctor within 48 hours for reevaluation. Declined. Patient states he absolutely has no chest pain and knows if he needs a EKG. Patient declined a EKG. Counseled pt/family regarding: diagnosis, rad results - Departure Departure Disposition: Home Clinical Impression: Shoulder strain, Repetitive motion disorder, Repetitive motion injury Condition: Stable Critical Care Time: No Referrals: BROOKLYN FRITZ MD [Primary Care Provider] - Additional Instructions: Discharge/Care Plan VIKASHJORDAN KEANE was seen on 04/20/20 in the Emergency Room. The patient was counseled regarding Diagnosis,Lab results, Imaging studies, need for follow up and when to return to the Emergency Room. Prescriptions given: Discharge Note I have spoken with the patient and/or caregivers. I have explained the patient's condition, diagnosis and treatment plan based on the information available to me at this time. I have answered the patient's and/or caregiver's questions and addressed any concerns. The patient and/or caregivers have as good understanding of the patient's diagnosis, condition and treatment plan as can be expected at this point. The vital signs have been stable. The patient's condition is stable and appropriate for discharge from the emergency department. The patient will pursue further outpatient evaluation with the primary care physician or other designated or consulting physician as outlined in the discharge instructions. The patient and/or caregivers are agreeable to this plan of care and follow-up instructions have been explained in detail. The patient and/or caregivers have received these instruction. The patient/and or caregivers are aware that any significant change in condition or worsening of symptoms should prompt an immediate return to this or the closest emergency department or call 911.
[2020-04-20] MEDS ORDERED: TORAdol 30 mg Injection ONE (21:20)
[2020-04-20 22:20] VITALS: BP 143/63; O2SAT 95
[2020-04-20 22:23] VITALS: PULSE 79
--- NOTE | 2020-04-21 08:45 | XRAY ---
Indication: Pain following moving furniture. Comparison: None 3 view left shoulder demonstrates tiny curvilinear ossifications adjacent to humeral head greater tuberosity presumed sequela to old injury/inflammation. Elsewhere moderate AC degenerative arthropathy with inferior spurring and left lung calcified granulomas. No other bony, articular, or soft tissue abnormalities.
--- NOTE | 2020-04-21 08:47 | XRAY ---
Indication: Pain following moving furniture. Comparison: None 2 view left humerus demonstrates tiny curvilinear ossifications adjacent to greater tuberosity presumed sequela to old injury/inflammation, moderate AC degenerative arthropathy with inferior spurring, and midarm external electronic device. No other bony, articular, or soft tissue abnormalities.
== END 2020-04-20 22:23 | disposition home or self-care (01) ==
LOC: ED 20:31
DX: S46.912A Strain of unspecified muscle, fascia and tendon at shoulder and upper arm level, left arm, initial encounter (principal); M25.512 Pain in left shoulder; X50.0XXA Overexertion from strenuous movement or load, initial encounter; Y93.89 Activity, other specified; Y92.89 Other specified places as the place of occurrence of the external cause; Z79.899 Other long term (current) drug therapy; E11.9 Type 2 diabetes mellitus without complications; Z79.4 Long term (current) use of insulin; I10 Essential (primary) hypertension; G40.909 Epilepsy, unspecified, not intractable, without status epilepticus; G47.30 Sleep apnea, unspecified; F51.9 Sleep disorder not due to a substance or known physiological condition, unspecified; M19.90 Unspecified osteoarthritis, unspecified site; K21.9 Gastro-esophageal reflux disease without esophagitis; G25.89 Other specified extrapyramidal and movement disorders
CPT/HCPCS: 73030; 73060; 96372; 99284; J1885

== ENCOUNTER 2020-07-24 15:57 | Observation (INO) | payer MEDICARE ==
[2020-07-24] MEDS ORDERED: TYLENOL EXTRA STRENGTH 500 MG PO STA (16:23)
[2020-07-24] MEDS ORDERED: TYLENOL EXTRA STRENGTH 500 MG ONE (16:24)
[2020-07-24] MEDS ORDERED: Sodium Chloride 0.9% 1000 ML 1,000 ML ONE (16:24)
[2020-07-24] MEDS ORDERED: Sodium Chloride 0.9% 1000 ML 1,000 ML IV SCH (16:30)
[2020-07-24 16:52] LABS: A-aADO2 40; ABG HEMOGLOBIN 14.3; ABG POTASSIUM 3.7 (3.5-5.1); ARTERIAL BLD GAS O2 SATURATION 95.9 % (95-100); ARTERIAL BLOOD GAS BASE EXCESS 4.3 (-2.0-2.0); ARTERIAL BLOOD GAS FIO2 21 %; ARTERIAL BLOOD GAS PCO2 33 mmHg (35-45); ARTERIAL BLOOD GAS PO2 68 mmHg (75-100); ARTERIAL BLOOD GAS pH 7.52 (7.35-7.45); CARBOXYHEMOGLOBIN 2.6 % THgb (0.0-6.9); HCO3- 26.9 (22-28); HGB O2 SAT 92.7 g/dF (94-100); Methhemoglobin 0.7 % (1.4-1.5); paO2 pAO1 0.63
[2020-07-24 16:53] LABS: ABG SITE RIGHT BRACHIAL
[2020-07-24 17:00] LABS: BASOPHIL % 0.2 % (0.0-0.4); Basophil (Absolute #) 0.01 (0-0.4); Eosinophil % 0.2 % (0.00-5.0); Eosinophil (Absolute #) 0.01 (0-0.5); Hematocrit 43.5 % (42-50); Hemoglobin 14.6 gm/dl (12.5-18.0); Lymphocyte (Absolute #) 1.14 (1.0-4.6); Mean Cell Volume 90.1 fl (78-100); Mean Corpuscular Hemoglobin 30.2 pg (26-32); Mean Corpuscular Hgb Concent. 33.6 g/dl (32-36); Mean Platelet Volume 10.3 fl (7.5-11.0); Monocyte (Absolute #) 0.79 (0.0-1.3); Monocytes % 16.6 % (0.0-12.0); Platelet Count 164 K/mm3 (150-450); Red Blood Count 4.83 M/mm3 (4.1-5.6); Red Cell Distribution Width 13.4 % (11.5-14.0); White Blood Count 4.8 K/mm3 (4.0-10.5)
[2020-07-24 17:13] LABS: Appearance CLEAR (CLEAR); Bilirubin NEGATIVE (NEGATIVE); Blood SMALL Ery/ul (0-5); Glucose NEGATIVE (NEGATIVE); Ketones NEGATIVE (NEGATIVE); Leukocyte Esterase NEGATIVE (NEGATIVE); Mucus SLIGHT /HPF (NEGATIVE); Nitrite NEGATIVE (NEGATIVE); Protein,Urine Dip 100 (Negative); RBC 0-2 /HPF (0-2); Specific Gravity 1.019 (1.005-1.025); Urobilinogen NEGATIVE mg/dL (0-1)
--- NOTE | 2020-07-24 17:15 | ERPHSYRPT ---
- History of Present Illness Time Seen by Provider: 07/24/20 17:12 Historian: patient Exam Limitations: no limitations Patient Subjective Stated Complaint: Pt is a 55 y/o male pt of Dr. Fritz found with pink/hot/dry skin. Pt advises he has had increased SOB since this AM upon exertion. Pt states he has had increased difficulty with taking a deep breath. Pt states his upper bilateral chest has a burning sensation upon inspiration. Pt denies c/p, N&V, diarrhea. Pt states he has been caring for his fiance who is currently admitted at [facility] and being treated for pneumonia. She tested negative for COVID-19. Pt states 1.5 weeks he began taking a new diabetic med which caused pt to feel "sick" since. Pt also complains of fatigue. Triage Nursing Assessment: Pt is a 55 y/o male pt of Dr. Fritz found with pink/hot/dry skin. Pt advises he has had increased SOB since this AM upon exertion. Pt states he has had increased difficulty with taking a deep breath. Pt states his upper bilateral chest has a burning sensation upon inspiration. Pt denies c/p, N&V, diarrhea. Pt states he has been caring for his fiance who is currently admitted at [facility] and being treated for pneumonia. She tested negative for COVID-19. Pt states 1.5 weeks he began taking a new diabetic med which caused pt to feel "sick" since. Pt also complains of fatigue. Physician History: Pt is a 55 y/o male pt has had increased SOB since this AM upon exertion. Pt states he has had increased difficulty with taking a deep breath. Pt states his upper bilateral chest has a burning sensation upon inspiration. Pt denies c/p, N&V, diarrhea. Pt states he has been caring for his fiance who is currently admitted at [facility] and being treated for pneumonia. She tested negative for COVID-19. Pt states 1.5 weeks he began taking a new diabetic med which caused pt to feel "sick" since. Pt also complains of fatigue. Timing/Duration: today Activities at Onset: none Quality: cramping Abdominal Pain Onset Location: periumbilical, suprapubic Pain Radiation: no radiation Severity of Pain-Max: moderate Severity of Pain-Current: moderate Modifying Factors: Improves With: nothing Associated Symptoms: fatigue, loss of appetite, nausea, shortness of breath, vomiting, weakness Previous symptoms: no prior history Allergies/Adverse Reactions: No Known Drug Allergies Allergy (Verified 07/24/20 16:27) Home Medications: Metformin HCl 1000 mg [Glucophage 1000 MG] 1,000 mg PO BID 05/17/15 [History] Nitroglycerin [Nitrostat] 0.4 mg SL Q5MIN PRN MR X 3 PRN 07/03/15 [History] Carvedilol [Coreg] 25 mg PO BID 05/07/17 [History] Famotidine 20 mg [Pepcid 20 MG] 40 mg PO BID 05/26/19 [History] Empagliflozin [Jardiance] 10 mg PO DAILY 09/12/19 [History] Ezetimibe 10 mg PO DAILY 09/12/19 [History] Insulin Aspart [Novolog] 100 unit SQ DAILY 09/12/19 [History] Liraglutide [Victoza 2-Vasile] 1.8 mg SQ DAILY 09/12/19 [History] Hx Tetanus, Diphtheria Vaccination/Date Given: No Hx Influenza Vaccination/Date Given: No Hx Pneumococcal Vaccination/Date Given: No Immunizations Up to Date: No Travel Risk - International Travel Have you traveled outside of the country in past 3 weeks: No - Coronavirus Screening Are you exhibiting any of the following symptoms?: Yes Symptoms: Fever, Cough: New Onset, Shortness of Breath, Headaches/Body Aches/Fatigue Close contact with a COVID-19 positive Pt in past 14-21 Days: No - Review of Systems Constitutional: Fever, Chills, Fatigue Eyes: No Symptoms Ears, Nose, & Throat: No Symptoms Respiratory: Dyspnea on Exertion (MIRELES), No Cough, No Dyspnea Cardiac: No Chest Pain, No Edema, No Syncope Abdominal/Gastrointestinal: Abdominal Pain, No Nausea, No Vomiting, No Diarrhea Genitourinary Symptoms: No Dysuria Musculoskeletal: No Back Pain, No Neck Pain Skin: No Rash Neurological: No Dizziness, No Focal Weakness, No Sensory Changes Psychological: No Symptoms Endocrine: No Symptoms All Other Systems: Reviewed and Negative - Past Medical History Pertinent Past Medical History: Yes Neurological History: Migraines, Seizures ENT History: No Pertinent History Cardiac History: Angina, Hypertension Respiratory History: COPD, Sleep Apnea Endocrine Medical History: Diabetes Type II Musculoskeletal History: Osteoarthritis GI Medical History: Esophageal Disorder, GERD History: No Pertinent History Psycho-Social History: Depression, Panic Disorder Male Reproductive Disorders: No Pertinent History, Prostate Problems Other Medical History: He notes for the past year being light headed when he stood up. Seizures as a kid. Has a diabetic pump, refuses to use the C-pap. 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 - Past Surgical History Past Surgical History: Yes Neuro Surgical History: No Pertinent History Cardiac: Cardiac Catheterization Respiratory: No Pertinent History Gastrointestinal: No Pertinent History Genitourinary: No Pertinent History Musculoskeletal: No Pertinent History Male Surgical History: No Pertinent History Other Surgical History: uvula removed. carpal tunnel right hand - Social History Smoking Status: Former smoker Exposure to second hand smoke: No Alcohol Use: None Drug Use: none Patient Lives Alone: No Significant Family History: heart disease, diabetes, hypertension - Nursing Vital Signs Nursing Vital Signs: Initial Vital Signs Temperature 102.3 F 07/24/20 16:20 Pulse Rate 73 07/24/20 16:20 Respiratory Rate 12 07/24/20 16:20 Blood Pressure 169/81 07/24/20 16:20 O2 Sat by Pulse Oximetry 95 07/24/20 16:20 Pain Scale Pain Intensity 0 - Physical Exam General Appearance: mild distress Eye Exam: PERRL/EOMI, eyes nml inspection Ears, Nose, Throat Exam: normal ENT inspection, pharynx normal, moist mucous membranes Neck Exam: normal inspection, non-tender, supple, full range of motion Respiratory Exam: diminished breath sounds, No respiratory distress Cardiovascular Exam: regular rate/rhythm, normal heart sounds Gastrointestinal/Abdomen Exam: tenderness, distention, guarding, No mass, No pulsatile mass, No rebound Rectal Exam: deferred Back Exam: normal inspection, normal range of motion, No CVA tenderness, No vertebral tenderness Extremity Exam: normal inspection, normal range of motion, pelvis stable Neurologic Exam: alert, oriented x 3, cooperative, normal mood/affect, nml ce rebellar function, sensation nml, No motor deficits Skin Exam: normal color, warm, dry SpO2: 94 - Course Nursing assessment & vital signs reviewed: Yes - Radiology Exams Chest X-ray Interpretation: Reviewed by me, Negative Ordered Tests: Active Orders 24 hr Category Date Time Status Reservation Agent STAT Care 07/24/20 16:24 Active EKG-ER Only STAT Care 07/24/20 16:23 Active IV Insertion STAT Care 07/24/20 16:34 Active Isolation, Initiate & Maintain Q6H Care 07/24/20 19:07 Active Isolation, Initiate & Maintain STAT Care 07/24/20 16:24 Active Oxygen-ED Only High Flow per RT 50% Care 07/24/20 16:23 Active POCT Glucose Check ACHS Care 07/24/20 19:[address] in Observation ROUTINE Care 07/24/20 19:07 Active Pulse Oximetry (ED) STAT Care 07/24/20 16:35 Active Vital Signs Q4H Care 07/24/20 19:07 Active Clear Liquid Diet 07/24/20 Dinner Active CHEST 1 VIEW (PORTABLE) Stat Exams 07/24/20 16:51 Taken AMYLASE Stat Lab 07/24/20 17:08 Completed ARTERIAL BLOOD GASES Stat Lab 07/24/20 16:23 Completed BLOOD CULTURE Stat Lab 07/24/20 16:51 Received CBC W DIFF Stat Lab 07/24/20 16:51 Completed CMP Stat Lab 07/24/20 16:51 Completed CULTURE,URINE Stat Lab 07/24/20 17:08 Received D-DIMER QUANTITATIVE Stat Lab 07/24/20 16:51 Completed Ferritin Stat Lab 07/24/20 16:51 Completed LDH-LACTATE DEHYDROGENASE Stat Lab 07/24/20 16:51 Completed LIPASE Stat Lab 07/24/20 17:08 Completed TROPONIN Q3H Lab 07/24/20 16:52 Completed TROPONIN Q3H Lab 07/25/20 01:30 Ordered TROPONIN Q3H Lab 07/25/20 04:30 Ordered UA W/RFX UR CULTURE Stat Lab 07/24/20 17:08 Completed Respiratory Therapy Consult ROUTINE RT 07/24/20 19:07 Active Transfer Order Routine Transfer 07/24/20 Ordered Medication Summary Generic Name Dose Route Start Last Admin Trade Name Freq PRN Reason Stop Dose Admin Sodium Chloride 1,000 mls @ 50 mls/hr 07/24/20 16:30 07/24/20 16:28 Sodium Chloride 0.9% 1000 Ml IV 08/23/20 16:29 50 mls/hr .Q20H LACY Administration Discontinued Medications Generic Name Dose Route Start Last Admin Trade Name Freq PRN Reason Stop Dose Admin Acetaminophen 1,000 mg 07/24/20 16:23 07/24/20 16:28 Tylenol Extra Strength 500 Mg PO 07/24/20 16:24 1,000 mg STAT STA Administration Acetaminophen Confirm 07/24/20 16:24 Tylenol Extra Strength 500 Mg Administered 07/24/20 16:25 Dose 1,000 mg .ROUTE .STK-MED ONE Lab/Rad Data: Laboratory Result Diagrams 07/24/20 16:51 07/24/20 16:51 Laboratory Results 07/24/20 07/24/20 07/24/20 Range/Units 17:08 17:08 16:52 WBC (4.0-10.5) K/mm3 RBC (4.1-5.6) M/mm3 Hgb (12.5-18.0) gm/dl Hct (42-50) % MCV (78-100) fl MCH (26-32) pg MCHC (32-36) g/dl RDW (11.5-14.0) % Plt Count (150-450) K/mm3 MPV (7.5-11.0) fl Gran % (36.0-66.0) % Eos # (Auto) (0-0.5) Absolute Lymphs (auto) (1.0-4.6) Absolute Monos (auto) (0.0-1.3) Lymphocytes % (24.0-44.0) % Monocytes % (0.0-12.0) % Eosinophils % (0.00-5.0) % Basophils % (0.0-0.4) % Absolute Granulocytes (1.4-6.9) Basophils # (0-0.4) D-Dimer (215-500) ng/mL Puncture Site pCO2 (35-45) mmHg pO2 (75-100) mmHg Base Excess (-2.0-2.0) O2 Saturation (94-100) g/dF ABG pH (7.35-7.45) ABG HCO3 (22-28) ABG O2 Sat (Measured) (95-100) % Nigel Test A-a Gradient a/A Ratio Hemoglobin Carboxyhemoglobin (0.0-6.9) % THgb Methemoglobin (1.4-1.5) % Potassium (3.5-5.1) Temperature C POC O2 Flow Rate % Sodium (137-145) mmol/L Chloride (98-107) mmol/L Carbon Dioxide (22-30) mmol/L Anion Gap (5-15) MEQ/L BUN (9-20) mg/dL Creatinine (0.66-1.25) mg/dL Estimated GFR ML/MIN Glucose (74-106) mg/dL Calcium (8.4-10.2) mg/dL Ferritin (17.9-464) ng/mL Total Bilirubin (0.2-1.3) mg/dL AST (17-59) U/L ALT (0-50) U/L Alkaline Phosphatase (38-126) U/L Lactate Dehydrogenase (120-246) U/L Troponin I (0.000-0.034) ng/mL Serum Total Protein (6.3-8.2) g/dL Albumin (3.5-5.0) g/dL Amylase 60 (30-110) U/L Lipase 331 H (23-300) U/L Urine Color YELLOW (YELLOW) Urine Appearance CLEAR (CLEAR) Urine pH 5.0 (5-6) Ur Specific Liscomb 1.019 (1.005-1.025) Urine Protein 100 (Negative) Urine Ketones NEGATIVE (NEGATIVE) Urine Blood SMALL (0-5) Bonilla/ul Urine Nitrite NEGATIVE (NEGATIVE) Urine Bilirubin NEGATIVE (NEGATIVE) Urine Urobilinogen NEGATIVE (0-1) mg/dL Ur Leukocyte Esterase NEGATIVE (NEGATIVE) Urine WBC (Auto) NONE (0-5) /HPF Urine RBC (Auto) 0-2 (0-2) /HPF U Epithel Cells (Auto) NONE (FEW) /HPF Urine Bacteria (Auto) NONE SEEN (NEGATIVE) /HPF Urine Mucus (Auto) SLIGHT (NEGATIVE) /HPF Urine Culture Reflexed YES (NO) Urine Glucose NEGATIVE (NEGATIVE) mg/dL Influenza Type A Ag NEGATIVE (NEGATIVE) Influenza Type B Ag NEGATIVE (NEGATIVE) RSV (PCR) NEGATIVE (Negative) SARS-CoV-2 (PCR) (NEGATIVE) 07/24/20 07/24/20 07/24/20 Range/Units 16:52 16:51 16:51 WBC (4.0-10.5) K/mm3 RBC (4.1-5.6) M/mm3 Hgb (12.5-18.0) gm/dl Hct (42-50) % MCV (78-100) fl MCH (26-32) pg MCHC (32-36) g/dl RDW (11.5-14.0) % Plt Count (150-450) K/mm3 MPV (7.5-11.0) fl Gran % (36.0-66.0) % Eos # (Auto) (0-0.5) Absolute Lymphs (auto) (1.0-4.6) Absolute Monos (auto) (0.0-1.3) Lymphocytes % (24.0-44.0) % Monocytes % (0.0-12.0) % Eosinophils % (0.00-5.0) % Basophils % (0.0-0.4) % Absolute Granulocytes (1.4-6.9) Basophils # (0-0.4) D-Dimer 434 (215-500) ng/mL Puncture Site pCO2 (35-45) mmHg pO2 (75-100) mmHg Base Excess (-2.0-2.0) O2 Saturation (94-100) g/dF ABG pH (7.35-7.45) ABG HCO3 (22-28) ABG O2 Sat (Measured) (95-100) % Nigel Test A-a Gradient a/A Ratio Hemoglobin Carboxyhemoglobin (0.0-6.9) % THgb Methemoglobin (1.4-1.5) % Potassium (3.5-5.1) Temperature C POC O2 Flow Rate % Sodium (137-145) mmol/L Chloride (98-107) mmol/L Carbon Dioxide (22-30) mmol/L Anion Gap (5-15) MEQ/L BUN (9-20) mg/dL Creatinine (0.66-1.25) mg/dL Estimated GFR ML/MIN Glucose (74-106) mg/dL Calcium (8.4-10.2) mg/dL Ferritin 154 (17.9-464) ng/mL Total Bilirubin (0.2-1.3) mg/dL AST (17-59) U/L ALT (0-50) U/L Alkaline Phosphatase (38-126) U/L Lactate Dehydrogenase (120-246) U/L Troponin I < 0.012 (0.000-0.034) ng/mL Serum Total Protein (6.3-8.2) g/dL Albumin (3.5-5.0) g/dL Amylase (30-110) U/L Lipase (23-300) U/L Urine Color (YELLOW) Urine Appearance (CLEAR) Urine pH (5-6) Ur Specific Liscomb (1.005-1.025) Urine Protein (Negative) Urine Ketones (NEGATIVE) Urine Blood (0-5) Bonilla/ul Urine Nitrite (NEGATIVE) Urine Bilirubin (NEGATIVE) Urine Urobilinogen (0-1) mg/dL Ur Leukocyte Esterase (NEGATIVE) Urine WBC (Auto) (0-5) /HPF Urine RBC (Auto) (0-2) /HPF U Epithel Cells (Auto) (FEW) /HPF Urine Bacteria (Auto) (NEGATIVE) /HPF Urine Mucus (Auto) (NEGATIVE) /HPF Urine Culture Reflexed (NO) Urine Glucose (NEGATIVE) mg/dL Influenza Type A Ag (NEGATIVE) Influenza Type B Ag (NEGATIVE) RSV (PCR) (Negative) SARS-CoV-2 (PCR) (NEGATIVE) 07/24/20 07/24/20 07/24/20 Range/Units 16:51 16:51 16:35 WBC 4.8 (4.0-10.5) K/mm3 RBC 4.83 (4.1-5.6) M/mm3 Hgb 14.6 (12.5-18.0) gm/dl Hct 43.5 (42-50) % MCV 90.1 (78-100) fl MCH 30.2 (26-32) pg MCHC 33.6 (32-36) g/dl RDW 13.4 (11.5-14.0) % Plt Count 164 (150-450) K/mm3 MPV 10.3 (7.5-11.0) fl Gran % 59.0 (36.0-66.0) % Eos # (Auto) 0.01 (0-0.5) Absolute Lymphs (auto) 1.14 (1.0-4.6) Absolute Monos (auto) 0.79 (0.0-1.3) Lymphocytes % 24.0 (24.0-44.0) % Monocytes % 16.6 H (0.0-12.0) % Eosinophils % 0.2 (0.00-5.0) % Basophils % 0.2 (0.0-0.4) % Absolute Granulocytes 2.80 (1.4-6.9) Basophils # 0.01 (0-0.4) D-Dimer (215-500) ng/mL Puncture Site pCO2 (35-45) mmHg pO2 (75-100) mmHg Base Excess (-2.0-2.0) O2 Saturation (94-100) g/dF ABG pH (7.35-7.45) ABG HCO3 (22-28) ABG O2 Sat (Measured) (95-100) % Nigel Test A-a Gradient a/A Ratio Hemoglobin Carboxyhemoglobin (0.0-6.9) % THgb Methemoglobin (1.4-1.5) % Potassium 3.9 (3.5-5.1) Temperature C POC O2 Flow Rate % Sodium 133 L (137-145) mmol/L Chloride 101 (98-107) mmol/L Carbon Dioxide 23 (22-30) mmol/L Anion Gap 12.4 (5-15) MEQ/L BUN 18 (9-20) mg/dL Creatinine 0.83 (0.66-1.25) mg/dL Estimated GFR > 60.0 ML/MIN Glucose 161 H (74-106) mg/dL Calcium 8.7 (8.4-10.2) mg/dL Ferritin (17.9-464) ng/mL Total Bilirubin 0.30 (0.2-1.3) mg/dL AST 22 (17-59) U/L ALT 17 (0-50) U/L Alkaline Phosphatase 48 (38-126) U/L Lactate Dehydrogenase 149 (120-246) U/L Troponin I (0.000-0.034) ng/mL Serum Total Protein 6.9 (6.3-8.2) g/dL Albumin 4.0 (3.5-5.0) g/dL Amylase (30-110) U/L Lipase (23-300) U/L Urine Color (YELLOW) Urine Appearance (CLEAR) Urine pH (5-6) Ur Specific Liscomb (1.005-1.025) Urine Protein (Negative) Urine Ketones (NEGATIVE) Urine Blood (0-5) Bonilla/ul Urine Nitrite (NEGATIVE) Urine Bilirubin (NEGATIVE) Urine Urobilinogen (0-1) mg/dL Ur Leukocyte Esterase (NEGATIVE) Urine WBC (Auto) (0-5) /HPF Urine RBC (Auto) (0-2) /HPF U Epithel Cells (Auto) (FEW) /HPF Urine Bacteria (Auto) (NEGATIVE) /HPF Urine Mucus (Auto) (NEGATIVE) /HPF Urine Culture Reflexed (NO) Urine Glucose (NEGATIVE) mg/dL Influenza Type A Ag (NEGATIVE) Influenza Type B Ag (NEGATIVE) RSV (PCR) (Negative) SARS-CoV-2 (PCR) POSITIVE A (NEGATIVE) 07/24/20 Range/Units 16:23 WBC (4.0-10.5) K/mm3 RBC (4.1-5.6) M/mm3 Hgb (12.5-18.0) gm/dl Hct (42-50) % MCV (78-100) fl MCH (26-32) pg MCHC (32-36) g/dl RDW (11.5-14.0) % Plt Count (150-450) K/mm3 MPV (7.5-11.0) fl Gran % (36.0-66.0) % Eos # (Auto) (0-0.5) Absolute Lymphs (auto) (1.0-4.6) Absolute Monos (auto) (0.0-1.3) Lymphocytes % (24.0-44.0) % Monocytes % (0.0-12.0) % Eosinophils % (0.00-5.0) % Basophils % (0.0-0.4) % Absolute Granulocytes (1.4-6.9) Basophils # (0-0.4) D-Dimer (215-500) ng/mL Puncture Site RIGHT BRACHIAL pCO2 33 L (35-45) mmHg pO2 68 L (75-100) mmHg Base Excess 4.3 H (-2.0-2.0) O2 Saturation 92.7 L (94-100) g/dF ABG pH 7.52 H (7.35-7.45) ABG HCO3 26.9 (22-28) ABG O2 Sat (Measured) 95.9 (95-100) % Nigel Test NOT APPLICABLE A-a Gradient 40 a/A Ratio 0.63 Hemoglobin 14.3 Carboxyhemoglobin 2.6 (0.0-6.9) % THgb Methemoglobin 0.7 L (1.4-1.5) % Potassium 3.7 (3.5-5.1) Temperature 37.0 C POC O2 Flow Rate 21 % Sodium (137-145) mmol/L Chloride (98-107) mmol/L Carbon Dioxide (22-30) mmol/L Anion Gap (5-15) MEQ/L BUN (9-20) mg/dL Creatinine (0.66-1.25) mg/dL Estimated GFR ML/MIN Glucose (74-106) mg/dL Calcium (8.4-10.2) mg/dL Ferritin (17.9-464) ng/mL Total Bilirubin (0.2-1.3) mg/dL AST (17-59) U/L ALT (0-50) U/L Alkaline Phosphatase (38-126) U/L Lactate Dehydrogenase (120-246) U/L Troponin I (0.000-0.034) ng/mL Serum Total Protein (6.3-8.2) g/dL Albumin (3.5-5.0) g/dL Amylase (30-110) U/L Lipase (23-300) U/L Urine Color (YELLOW) Urine Appearance (CLEAR) Urine pH (5-6) Ur Specific Liscomb (1.005-1.025) Urine Protein (Negative) Urine Ketones (NEGATIVE) Urine Blood (0-5) Bonilla/ul Urine Nitrite (NEGATIVE) Urine Bilirubin (NEGATIVE) Urine Urobilinogen (0-1) mg/dL Ur Leukocyte Esterase (NEGATIVE) Urine WBC (Auto) (0-5) /HPF Urine RBC (Auto) (0-2) /HPF U Epithel Cells (Auto) (FEW) /HPF Urine Bacteria (Auto) (NEGATIVE) /HPF Urine Mucus (Auto) (NEGATIVE) /HPF Urine Culture Reflexed (NO) Urine Glucose (NEGATIVE) mg/dL Influenza Type A Ag (NEGATIVE) Influenza Type B Ag (NEGATIVE) RSV (PCR) (Negative) SARS-CoV-2 (PCR) (NEGATIVE) - Progress Progress: improved, pain not gone completely Discussed with Dr.: Jorge Belle Will see patient in: hospital (observation) Counseled pt/family regarding: lab results, diagnosis, need for follow-up, rad results - Departure Departure Disposition: Observation Clinical Impression: COVID-19 virus infection Drug-induced pancreatitis Qualifiers: Chronicity: acute Acute pancreatitis complication: no infection or necrosis Qualified Code(s): K85.30 - Drug induced acute pancreatitis without necrosis or infection Condition: Fair Critical Care Time: Yes Critical Care Time(excluding separately billable procedures): Critical 30-74 mins Referrals: BROOKLYN FRITZ MD [Primary Care Provider] -
[2020-07-24 17:21] LABS: Bacteria NONE SEEN /HPF (NEGATIVE)
[2020-07-24 17:24] LABS: AMYLASE 60 U/L (30-110); LIPASE 331 U/L (23-300)
[2020-07-24 17:27] LABS: ALKALINE PHOSPHATASE 48 U/L (38-126); ANION GAP 12.4 MEQ/L (5-15); BLOOD UREA NITROGEN 18 mg/dL (9-20); CHLORIDE 101 mmol/L (98-107); Calcium 8.7 mg/dL (8.4-10.2); Carbon Dioxide 23 mmol/L (22-30); Creatinine 1 0.83 mg/dL (0.66-1.25); EST GLOMERULAR FILTRATION RATE > 60.0 ML/MIN; Glucose 161 mg/dL (74-106); LDH-LACTATE DEHYDROGENASE 149 U/L (120-246); Potassium 3.9 mmol/L (3.5-5.1); SGOT/AST 22 U/L (17-59); SGPT/ALT 17 U/L (0-50); SODIUM 133 mmol/L (137-145); Total Protein 6.9 g/dL (6.3-8.2)
[2020-07-24 17:34] LABS: INFLUENZA A NEGATIVE (NEGATIVE); INFLUENZA B NEGATIVE (NEGATIVE); RESPIRATORY SYNCTIAL VIRUS NEGATIVE (Negative)
[2020-07-24] MEDS ORDERED: HUMALOG SQ PRN ×2 (19:07→19:27)
[2020-07-24] MEDS ORDERED: Zofran 4 MG/2 ML VIAL IV PRN (19:07)
[2020-07-24] MEDS ORDERED: TYLENOL 325 MG PO PRN (19:27)
[2020-07-24] MEDS: Sodium Chloride 0.9% 1000 ML 1,000 ML IV SCH (20:00)
[2020-07-24] MEDS ORDERED: Decadron 4 MG INJ IV SCH (22:30)
[2020-07-24] MEDS ORDERED: Zestril 5 MG PO SCH (23:08)
[2020-07-24] MEDS: COREG 12.5 MG PO SCH (23:14)
[2020-07-25] MEDS: Sodium Chloride 0.9% 1000 ML 1,000 ML IV SCH (05:30)
[2020-07-25 07:04] LABS: AMYLASE 49 U/L (30-110); ANION GAP 11.4 MEQ/L (5-15); BLOOD UREA NITROGEN 15 mg/dL (9-20); CHLORIDE 102 mmol/L (98-107); Calcium 8.5 mg/dL (8.4-10.2); Carbon Dioxide 28 mmol/L (22-30); Creatinine 1 0.73 mg/dL (0.66-1.25); EST GLOMERULAR FILTRATION RATE > 60.0 ML/MIN; Glucose 220 mg/dL (74-106); LIPASE 159 U/L (23-300); Potassium 4.7 mmol/L (3.5-5.1); SODIUM 137 mmol/L (137-145)
[2020-07-25] MEDS ORDERED: Nitrostat 0.4 MG Tablet SL PRN (07:27)
[2020-07-25] MEDS ORDERED: Glucophage 500 MG PO SCH (08:00)
[2020-07-25 08:03] VITALS: BP 126/58; PULSE 61
[2020-07-25 08:10] VITALS: O2SAT 94
--- NOTE | 2020-07-25 08:46 | XRAY ---
Indication: Fever and cough. Suspect Covid 19. Comparison: December 01, 2019. Portable chest demonstrates normal heart and lungs with again incidental calcified granulomas. Bony thorax intact again with mild degenerative changes. No new/acute findings.
[2020-07-25] MEDS: COREG 12.5 MG PO SCH (09:24)
[2020-07-25] MEDS ORDERED: Zetia 10 MG PO SCH (10:00)
[2020-07-25] MEDS ORDERED: ROSUVASTATIN CALCIUM PO SCH (10:00)
[2020-07-25] MEDS ORDERED: Flomax 0.4 MG PO SCH (10:00)
[2020-07-25] MEDS ORDERED: hydroDIURIL 25 MG PO SCH (10:00)
[2020-07-25] MEDS ORDERED: NON-FORMULARY ITEM (Metformin Hcl 1000 Mg [Glucophage 1000 Mg] 1,000 MG) PO SCH (10:00)
[2020-07-25] MEDS ORDERED: Cymbalta 30 MG Capsule PO SCH (10:00)
[2020-07-25] MEDS ORDERED: Decadron 4 MG INJ IV SCH (10:00)
[2020-07-25] MEDS ORDERED: ENOXAPARIN SODIUM SQ SCH ×3 (10:00)
[2020-07-25] MEDS ORDERED: NEURONTIN 300 MG PO SCH (10:00)
--- NOTE | 2020-07-25 13:20 | SSS ---
ADMISSION DIAGNOSIS: COVID-19. DISCHARGE DIAGNOSES: 1) COVID-19. 2) DIABETES MELLITUS. 3) CORONARY ARTERY DISEASE. 4) GASTROESOPHAGEAL REFLUX. 5) MORBID OBESITY. HISTORY: The patient had about a week of shortness of breath, cough, aching all over. His girlfriend who was hospitalized with pneumonia finally got him to come to the emergency room the day of admission where the COVID test was positive. However, he said he really was not feeling that terrible at the present time. It is interesting that he lives with a lady who is on the floor who has pneumonia. I am pretty sure at looking at her chart that she has COVID and will transfer her to the COVID unit. PAST MEDICAL HISTORY: A patient of Dr. Horton. He had some shortness of breath, sharp pain with taking a deep breath, burning in the chest and coughing a little bit. It has been going on for at least a week since he started a new diabetes medicine which made him feel sick and he discontinued it and he feels better already. He has diabetic pump which he is not using. He has history of sleep apnea, does not use a CPAP machine. REVIEW OF SYSTEMS: HEENT: No problems hearing or seeing. CHEST: Had some burning pain now not really not there on the day of discharge. He has no cough. CVS: No exertional chest pain, palpitations. I believe he had positive cath several years ago, has a stent. ENDOCRINE: Diabetes mellitus for many years difficult to control at times due to not having money for his medicine, I remember. GI: Reflux treated with medicine. : No problems urinating. PSYCHOSOCIAL: Long history of depression, panic disorder not bad now. SOCIAL HISTORY: He is living with a girlfriend now who is quite ill with probably COVID. PHYSICAL EXAMINATION: The patient is alert, orientated and thin. He looks in no distress. VITAL SIGNS: Temperature on admission was 102F, pulse 73, respirations 12, blood pressure 170/81. O2 saturation 95% on room air. HEENT: Pupils equal and reactive to light. NECK: Supple without adenopathy. CHEST: Clear. CVS: No murmurs or gallops. ABDOMEN: Obese. No tenderness. EXTREMITIES: Good pulses. No cyanosis. LAB DATA AND TESTS: The patient's abdominal pain finally went away several hours after being admitted to the hospital. From when I saw him on Saturday, his D-dimer was mildly elevated 722. His COVID was positive. His cardiac enzymes were negative. HOSPITAL COURSE: The patient does have COVID however he is pretty asymptomatic. His fever has gone away. He is not coughing. His D-dimer is not markedly elevated. His chest pain and abdominal pain is all gone away. At this time he will be discharged on his home medications plus prednisone 40 x5, 20 x5. He will not be anticoagulated because his D-dimer is not markedly elevated. He is to return to the hospital if he becomes symptomatic again. PROGNOSIS: Good. He is to isolate for the next five days. He is to be asymptomatic for five days. He has probably had this for eight days already although he did not come in to be diagnosed.
[2020-07-25] MEDS ORDERED: ZOCOR 20MG PO SCH (22:00)
== END 2020-07-25 10:30 | disposition home or self-care (01) ==
LOC: ED 15:57 → MED SURG 19:23
PROVIDERS: ADMIT Family Medicine; ATTEND Family Medicine
DX: U07.1 COVID-19 (principal); E11.9 Type 2 diabetes mellitus without complications; I25.10 Atherosclerotic heart disease of native coronary artery without angina pectoris; K21.9 Gastro-esophageal reflux disease without esophagitis; E66.01 Morbid (severe) obesity due to excess calories; Z79.899 Other long term (current) drug therapy; Z79.4 Long term (current) use of insulin; Z68.33 Body mass index [BMI] 33.0-33.9, adult
CPT/HCPCS: 36000; 36415; 36600; 71045; 80048; 80053; 81001; 82150; 82375; 82728; 82803; 82962; 83615; 83690; 84484; 85025; 85379; 87040; 87086; 87631; 93005; 93041; 94760; 94762; 96360; 99285; 99291; J1100; J1650; U0003; A9270-GY; G0378

== ENCOUNTER 2020-09-14 17:13 | Emergency (ER) | payer MEDICARE ==
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
[2020-09-14 18:46] VITALS: BP 159/80
[2020-09-14] MEDS ORDERED: PERCOCET TABLET 5/325MG PO STA (18:48)
[2020-09-14 19:05] VITALS: PULSE 88; O2SAT 99
[2020-09-14] MEDS ORDERED: PERCOCET TABLET 5/325MG ONE (19:06)
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
== END 2020-09-14 19:21 | disposition home or self-care (01) ==
LOC: ED 17:13
DX: T14.8XXA Other injury of unspecified body region, initial encounter (principal); V89.2XXA Person injured in unspecified motor-vehicle accident, traffic, initial encounter; Y93.9 Activity, unspecified; Y92.89 Other specified places as the place of occurrence of the external cause; R51.9 Headache, unspecified; S09.90XA Unspecified injury of head, initial encounter; S00.81XA Abrasion of other part of head, initial encounter; I10 Essential (primary) hypertension; G40.909 Epilepsy, unspecified, not intractable, without status epilepticus; J44.9 Chronic obstructive pulmonary disease, unspecified; G47.30 Sleep apnea, unspecified; E11.9 Type 2 diabetes mellitus without complications; Z79.4 Long term (current) use of insulin; F51.9 Sleep disorder not due to a substance or known physiological condition, unspecified; K21.9 Gastro-esophageal reflux disease without esophagitis; F32.9 Major depressive disorder, single episode, unspecified; Z79.899 Other long term (current) drug therapy
CPT/HCPCS: 70450; 71100; 73030; 99283; A9270-GY

== ENCOUNTER 2020-09-29 08:16 | Emergency (ER) | payer MEDICARE ==
[2020-09-29 08:32] VITALS: PULSE 66
[2020-09-29] MEDS ORDERED: TETRACAINE 0.5% STERI-UNIT SOL OP ONE (08:35)
[2020-09-29] MEDS ORDERED: Fluor-I-Strip/Ful-Flo OP ONE (08:35)
[2020-09-29 09:31] VITALS: BP 168/85; O2SAT 97
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
== END 2020-09-29 10:10 | disposition home or self-care (01) ==
LOC: ED 08:16
DX: H11.32 Conjunctival hemorrhage, left eye (principal)
CPT/HCPCS: 70480; 99283

== ENCOUNTER 2021-03-16 13:37 | Emergency (ER) | payer MEDICARE ==
[2021-03-16 14:12] LABS: Absolute Neutrophil Ct (ANC) 4.24 (1.4-6.9); BASOPHIL % 0.6 % (0.0-0.4); Basophil (Absolute #) 0.04 (0-0.4); Eosinophil % 2.5 % (0.00-5.0); Eosinophil (Absolute #) 0.17 (0-0.5); Hematocrit 40.1 % (42-50); Hemoglobin 13.4 gm/dl (12.5-18.0); Lymphocyte (Absolute #) 1.71 (1.0-4.6); Lymphocytes % 25.6 % (24.0-44.0); Mean Cell Volume 88.7 fl (78-100); Mean Corpuscular Hemoglobin 29.6 pg (26-32); Mean Corpuscular Hgb Concent. 33.4 g/dl (32-36); Monocyte (Absolute #) 0.53 (0.0-1.3); Monocytes % 7.9 % (0.0-12.0); Neutrophil % 63.4 % (36.0-66.0); Platelet Count 202 K/mm3 (150-450); Red Blood Count 4.52 M/mm3 (4.1-5.6); White Blood Count 6.7 K/mm3 (4.0-10.5)
[2021-03-16 14:22] LABS: Appearance SLIGHTLY CLOUDY (CLEAR); Bacteria RARE /HPF (NEGATIVE); Bilirubin NEGATIVE (NEGATIVE); Blood NEGATIVE Ery/ul (0-5); Epithelial Cells RARE /HPF (FEW); Glucose NEGATIVE (NEGATIVE); Ketones NEGATIVE (NEGATIVE); Leukocyte Esterase NEGATIVE (NEGATIVE); Mucus SLIGHT /HPF (NEGATIVE); Nitrite NEGATIVE (NEGATIVE); Protein,Urine Dip NEGATIVE (Negative); RBC 0-2 /HPF (0-2); Specific Gravity 1.019 (1.005-1.025); Urobilinogen NEGATIVE mg/dL (0-1); WBC 0-2 /HPF (0-5)
[2021-03-16 14:23] LABS: ALBUMIN 4.2 g/dL (3.5-5.0); ALKALINE PHOSPHATASE 53 U/L (38-126); ANION GAP 15.7 MEQ/L (5-15); BLOOD UREA NITROGEN 21 mg/dL (9-20); CHLORIDE 108 mmol/L (98-107); Calcium 9.1 mg/dL (8.4-10.2); Carbon Dioxide 19 mmol/L (22-30); EST GLOMERULAR FILTRATION RATE > 60.0 ML/MIN; Glucose 164 mg/dL (74-106); LIPASE 166 U/L (23-300); Potassium 4.1 mmol/L (3.5-5.1); SGOT/AST 24 U/L (17-59); SGPT/ALT 22 U/L (0-50); SODIUM 139 mmol/L (137-145); Total Protein 6.7 g/dL (6.3-8.2)
[2021-03-16 14:51] VITALS: BP 150/73; PULSE 71; O2SAT 96
--- NOTE | 2021-03-16 14:54 | XRAY ---
Indication: Lower abdomen pain, lethargy, diarrhea, and blood in stools. Multiple contiguous axial images obtained through the abdomen and pelvis without contrast. Comparison: CT abdomen February 07, 2018. Lung bases remain clear. Heart is not enlarged. Stomach is distended with food/fluid. Noncontrasted stomach and bowel loops are nonobstructed. Stable duodenal diverticulum and normal appendix. Mild fluid throughout the left hemicolon and rectum favoring diarrhea. No free fluid/air. Gallbladder partially contracted without gallstones. Again 14.8 cm splenomegaly with calcified granulomas. Remaining liver, gallbladder, pancreas, spleen, adrenal glands, kidneys, ureters, and bladder are unremarkable for noncontrast exam. Minimal aortoiliac calcifications without AAA. Osseous structures intact again with lumbosacral junction degenerative disc disease. 3.5 cm intramuscular lipoma seen of the left iliopsoas muscle anterior to the hip not previously imaged. Impression: 1. Mild fluid distended left hemicolon and rectum favoring diarrhea. 2. Again incidental duodenal diverticulum, splenomegaly, old granulomatous disease, and lumbosacral degenerative disc disease. 3. New finding left iliopsoas intramuscular lipoma.
--- NOTE | 2021-03-16 15:24 | ERPHSYRPT ---
- History of Present Illness Time Seen by Provider: 03/16/21 13:50 Source: patient Patient Subjective Stated Complaint: Pt states that he has been having dark red and reddish/orange stools and has been really tired Triage Nursing Assessment: Pt brought self to the ER, vitals wnl, deneis pain, bowel movement this AM, denies N&V, skin n/w/d, doesn't appear to be in any dis tress Physician History: Patient is a 56-year-old male presents to our ED for evaluation of dark stools. Patient states he has been feeling a little more tired than normal. Patient called his primary care doctor with these complaints. Patient was advised to come to our ED for evaluation. Patient otherwise feels well. No active abdominal pain at this time. No chest pain or shortness of breath. No nausea vomiting or diaphoresis. No trauma no fever. Patient voices no other complaints concerns at this time. Timing/Duration: today Severity: mild Modifying Factors: Improves With: nothing Associated Symptoms: denies symptoms Allergies/Adverse Reactions: No Known Drug Allergies Allergy (Verified 03/16/21 13:49) Home Medications: Metformin HCl 1000 mg [Glucophage 1000 MG] 1,000 mg PO BID 05/17/15 [History] Nitroglycerin [Nitrostat] 0.4 mg SL Q5MIN PRN MR X 3 PRN 07/03/15 [History] Carvedilol [Coreg] 25 mg PO BID 05/07/17 [History] Ezetimibe 10 mg PO DAILY 09/12/19 [History] Insulin Aspart [Novolog] 100 unit SQ DAILY 09/12/19 [History] Duloxetine HCl 30 mg [Cymbalta 30 MG Capsule] 60 mg PO DAILY 07/24/20 [History] Ferrous Sulfate 325 mg [Feosol 325 mg] 325 mg PO BID 07/24/20 [History] Gabapentin [Neurontin] 300 mg PO TID 07/24/20 [History] Hydrochlorothiazide 25 mg [hydroDIURIL 25 MG] 12.5 mg PO DAILY 07/24/20 [History] Lisinopril 5 mg [Zestril 5 MG] 5 mg PO HS 07/24/20 [History] Rosuvastatin Calcium [Crestor] 60 mg PO DAILY 07/24/20 [History] Tamsulosin HCl 0.4 mg [Flomax 0.4 MG] 0.4 mg PO DAILY 07/24/20 [History] Hx Tetanus, Diphtheria Vaccination/Date Given: Yes Hx Influenza Vaccination/Date Given: No Hx Pneumococcal Vaccination/Date Given: No Travel Risk - International Travel Have you traveled outside of the country in past 3 weeks: No - Coronavirus Screening Are you exhibiting any of the following symptoms?: No - Vaccine Status Have you recieved a Covid-19 vaccination: Yes [employer] 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: [employer] - Vaccination Dates Date of 2cond Vaccination (if applicable): 01/31/2021 - Review of Systems Constitutional: No Symptoms, No Fever, No Chills Eyes: No Symptoms Ears, Nose, & Throat: No Symptoms Respiratory: No Symptoms, No Cough, No Dyspnea Cardiac: No Symptoms, No Chest Pain, No Edema, No Syncope Abdominal/Gastrointestinal: No Symptoms, No Abdominal Pain, No Nausea, No Vomiting, No Diarrhea Genitourinary Symptoms: No Symptoms, No Dysuria Musculoskeletal: No Symptoms, No Back Pain, No Neck Pain Skin: No Symptoms, No Rash Neurological: No Symptoms, No Dizziness, No Focal Weakness, No Sensory Changes Psychological: No Symptoms Endocrine: No Symptoms Hematologic/Lymphatic: No Symptoms Immunological/Allergic: No Symptoms All Other Systems: Reviewed and Negative - Past Medical History Pertinent Past Medical History: Yes Neurological History: Migraines, Seizures ENT History: No Pertinent History Cardiac History: Coronary Artery Disease, High Cholesterol, Hypertension Respiratory History: COPD, Sleep Apnea Endocrine Medical History: Diabetes Type II Musculoskeletal History: Fractures GI Medical History: Esophageal Disorder, GERD History: No Pertinent History Psycho-Social History: Depression, Panic Disorder Male Reproductive Disorders: Prostate Problems Other Medical History: HX FX LEFT FOOT, LEFT LOWER ARM. PATIENT STATES HAS NERVOUS PROBLEM AND PICKS SORES/SCABS ON ARMS AND LEGS. GERD, DEPRESSION - Past Surgical History Past Surgical History: Yes Neuro Surgical History: No Pertinent History Cardiac: Cardiac Catheterization Respiratory: No Pertinent History Gastrointestinal: No Pertinent History Genitourinary: No Pertinent History Musculoskeletal: No Pertinent History Male Surgical History: No Pertinent History Other Surgical History: uvula removed. carpal tunnel right hand - Social History Smoking Status: Former smoker Exposure to second hand smoke: No Alcohol Use: None Drug Use: none Patient Lives Alone: No Significant Family History: heart disease, diabetes, hypertension - Nursing Vital Signs Nursing Vital Signs: Initial Vital Signs Pulse Rate 76 03/16/21 13:41 Blood Pressure 143/62 03/16/21 13:41 O2 Sat by Pulse Oximetry 98 03/16/21 13:41 Pain Scale Pain Intensity 0 - Physical Exam General Appearance: no apparent distress, alert Eye Exam: PERRL/EOMI, eyes nml inspection Ears, Nose, Throat Exam: normal ENT inspection, TMs normal, pharynx normal, moist mucous membranes Neck Exam: normal inspection, non-tender, supple, full range of motion Respiratory Exam: normal breath sounds, lungs clear, No respiratory distress Cardiovascular Exam: regular rate/rhythm, normal heart sounds, normal peripheral pulses Gastrointestinal/Abdomen Exam: soft, normal bowel sounds, other (Slight right lower quadrant pain to palpation. Otherwise benign exam.), No tenderness, No mass Back Exam: normal inspection, normal range of motion, No CVA tenderness, No vertebral tenderness Extremity Exam: normal inspection, normal range of motion, pelvis stable Neurologic Exam: alert, oriented x 3, cooperative, normal mood/affect, nml cerebellar function, sensation nml, No motor deficits Skin Exam: normal color, warm, dry, No rash Lymphatic Exam: No adenopathy SpO2 Interpretation: normal SpO2: 96 O2 Delivery: Room Air - Course Nursing assessment & vital signs reviewed: Yes EKG Interpreted by Me: RATE (73), Sinus Rhythm, NORMAL AXIS, NORMAL INTERVALS - CT Exams Abdomen/Pelvis CT Interpretation: Tele-radiologist Report (Mild fluid distended left hemicolon and rectum favoring diarrhea. Again incidental duodenal diverticulum, splenomegaly and old granulomatous disease and lumbosacral degenerative disc disease. New finding of left iliopsoas intramuscular lipoma.) Ordered Tests: Active Orders 24 hr Category Date Time Status Manager Of Training STAT Care 03/16/21 14:03 Active EKG-ER Only STAT Care 03/16/21 14:02 Active ABDOMEN AND PELVIS W/0 CONTRAS [CT] Stat Exams 03/16/21 14:01 Completed CBC W DIFF Stat Lab 03/16/21 14:05 Completed CMP Stat Lab 03/16/21 14:05 Completed LIPASE Stat Lab 03/16/21 14:05 Completed TROPONIN Q3H Lab 03/16/21 14:05 Completed TROPONIN Q3H Lab 03/16/21 17:00 Ordered TROPONIN Q3H Lab 03/16/21 20:00 Ordered TROPONIN Q3H Lab 03/16/21 23:00 Ordered TROPONIN Q3H Lab 03/17/21 02:00 Ordered UA W/RFX UR CULTURE Stat Lab 03/16/21 14:03 Completed Lab/Rad Data: Laboratory Result Diagrams 03/16/21 14:05 03/16/21 14:05 Laboratory Results 03/16/21 03/16/21 03/16/21 Range/Units 14:05 14:05 14:05 WBC 6.7 (4.0-10.5) K/mm3 RBC 4.52 (4.1-5.6) M/mm3 Hgb 13.4 (12.5-18.0) gm/dl Hct 40.1 L (42-50) % MCV 88.7 (78-100) fl MCH 29.6 (26-32) pg MCHC 33.4 (32-36) g/dl RDW 14.0 (11.5-14.0) % Plt Count 202 (150-450) K/mm3 MPV 9.0 (7.5-11.0) fl Gran % 63.4 (36.0-66.0) % Eos # (Auto) 0.17 (0-0.5) Absolute Lymphs (auto) 1.71 (1.0-4.6) Absolute Monos (auto) 0.53 (0.0-1.3) Lymphocytes % 25.6 (24.0-44.0) % Monocytes % 7.9 (0.0-12.0) % Eosinophils % 2.5 (0.00-5.0) % Basophils % 0.6 (0.0-0.4) % Absolute Granulocytes 4.24 (1.4-6.9) Basophils # 0.04 (0-0.4) Sodium 139 (137-145) mmol/L Potassium 4.1 (3.5-5.1) mmol/L Chloride 108 H (98-107) mmol/L Carbon Dioxide 19 L (22-30) mmol/L Anion Gap 15.7 H (5-15) MEQ/L BUN 21 H (9-20) mg/dL Creatinine 1.10 (0.66-1.25) mg/dL Estimated GFR > 60.0 ML/MIN Glucose 164 H (74-106) mg/dL Calcium 9.1 (8.4-10.2) mg/dL Total Bilirubin 0.30 (0.2-1.3) mg/dL AST 24 (17-59) U/L ALT 22 (0-50) U/L Alkaline Phosphatase 53 (38-126) U/L Troponin I < 0.012 (0.000-0.034) ng/mL Serum Total Protein 6.7 (6.3-8.2) g/dL Albumin 4.2 (3.5-5.0) g/dL Lipase 166 (23-300) U/L Urine Color (YELLOW) Urine Appearance (CLEAR) Urine pH (5-6) Ur Specific Dudley (1.005-1.025) Urine Protein (Negative) Urine Ketones (NEGATIVE) Urine Blood (0-5) Bonilla/ul Urine Nitrite (NEGATIVE) Urine Bilirubin (NEGATIVE) Urine Urobilinogen (0-1) mg/dL Ur Leukocyte Esterase (NEGATIVE) Urine WBC (Auto) (0-5) /HPF Urine RBC (Auto) (0-2) /HPF U Hyaline Cast (Auto) (0-2) /LPF U Epithel Cells (Auto) (FEW) /HPF Urine Bacteria (Auto) (NEGATIVE) /HPF Urine Mucus (Auto) (NEGATIVE) /HPF Urine Culture Reflexed (NO) Urine Glucose (NEGATIVE) mg/dL 03/16/21 Range/Units 14:03 WBC (4.0-10.5) K/mm3 RBC (4.1-5.6) M/mm3 Hgb (12.5-18.0) gm/dl Hct (42-50) % MCV (78-100) fl MCH (26-32) pg MCHC (32-36) g/dl RDW (11.5-14.0) % Plt Count (150-450) K/mm3 MPV (7.5-11.0) fl Gran % (36.0-66.0) % Eos # (Auto) (0-0.5) Absolute Lymphs (auto) (1.0-4.6) Absolute Monos (auto) (0.0-1.3) Lymphocytes % (24.0-44.0) % Monocytes % (0.0-12.0) % Eosinophils % (0.00-5.0) % Basophils % (0.0-0.4) % Absolute Granulocytes (1.4-6.9) Basophils # (0-0.4) Sodium (137-145) mmol/L Potassium (3.5-5.1) mmol/L Chloride (98-107) mmol/L Carbon Dioxide (22-30) mmol/L Anion Gap (5-15) MEQ/L BUN (9-20) mg/dL Creatinine (0.66-1.25) mg/dL Estimated GFR ML/MIN Glucose (74-106) mg/dL Calcium (8.4-10.2) mg/dL Total Bilirubin (0.2-1.3) mg/dL AST (17-59) U/L ALT (0-50) U/L Alkaline Phosphatase (38-126) U/L Troponin I (0.000-0.034) ng/mL Serum Total Protein (6.3-8.2) g/dL Albumin (3.5-5.0) g/dL Lipase (23-300) U/L Urine Color YELLOW (YELLOW) Urine Appearance SLIGHTLY CLOUDY (CLEAR) Urine pH 5.0 (5-6) Ur Specific Dudley 1.019 (1.005-1.025) Urine Protein NEGATIVE (Negative) Urine Ketones NEGATIVE (NEGATIVE) Urine Blood NEGATIVE (0-5) Bonilla/ul Urine Nitrite NEGATIVE (NEGATIVE) Urine Bilirubin NEGATIVE (NEGATIVE) Urine Urobilinogen NEGATIVE (0-1) mg/dL Ur Leukocyte Esterase NEGATIVE (NEGATIVE) Urine WBC (Auto) 0-2 (0-5) /HPF Urine RBC (Auto) 0-2 (0-2) /HPF U Hyaline Cast (Auto) 3-5 (0-2) /LPF U Epithel Cells (Auto) RARE (FEW) /HPF Urine Bacteria (Auto) RARE (NEGATIVE) /HPF Urine Mucus (Auto) SLIGHT (NEGATIVE) /HPF Urine Culture Reflexed NO (NO) Urine Glucose NEGATIVE (NEGATIVE) mg/dL - Progress Progress: improved Progress Note: Patient reassessed. He feels well. No pain. Vitals are stable. No fever. Laboratory work-up reveals essentially normal hemoglobin. Patient has no complaints at this time. Patient states is ready for discharge. Diarrhea observed on imaging study. Patient's feeling tired may be due to viral illness likely causing the diarrhea as well. Patient should follow-up with his primary care doctor. He agrees to follow-up with his primary care doctor within 48 hours for reevaluation. Plan of care discussed with patient. He voices no other complaints concerns at this time. EKG reveals normal sinus rhythm. Patient states he has an appointment scheduled with Dr. Ruiz for cardiac clearance in preparation for upper and lower GI. 03/16/21 15:33 03/16/21 15:51 Counseled pt/family regarding: lab results, diagnosis, need for follow-up, rad results - Departure Departure Disposition: Home Clinical Impression: Diarrhea, Splenomegaly, Aortoiliac calcifications, Arthritis of spine, Intramuscular lipoma of the left iliopso, Duodenal diverticulum, Intramuscular lipoma Condition: Stable Critical Care Time: No Referrals: BROOKLYN FRITZ MD [Primary Care Provider] - Additional Instructions: Discharge/Care Plan JORDAN SUH was seen on 03/16/21 in the Emergency Room. The patient was counseled regarding Diagnosis,Lab results, Imaging studies, need for follow up and when to return to the Emergency Room. Prescriptions given: Discharge Note I have spoken with the patient and/or caregivers. I have explained the patient's condition, diagnosis and treatment plan based on the information available to me at this time. I have answered the patient's and/or caregiver's questions and addressed any concerns. The patient and/or caregivers have as good understanding of the patient's diagnosis, condition and treatment plan as can be expected at this point. The vital signs have been stable. The patient's condition is stable and appropriate for discharge from the emergency department. The patient will pursue further outpatient evaluation with the primary care physician or other designated or consulting physician as outlined in the discharge instructions. The patient and/or caregivers are agreeable to this plan of care and follow-up instructions have been explained in detail. The patient and/or caregivers have received these instruction. The patient/and or caregivers are aware that any significant change in condition or worsening of symptoms should prompt an immediate return to this or the closest emergency department or call 911.
== END 2021-03-16 15:59 | disposition home or self-care (01) ==
LOC: ED 13:37
DX: R19.7 Diarrhea, unspecified (principal); R16.1 Splenomegaly, not elsewhere classified; I70.0 Atherosclerosis of aorta; M47.9 Spondylosis, unspecified; D17.9 Benign lipomatous neoplasm, unspecified; K57.10 Diverticulosis of small intestine without perforation or abscess without bleeding; I10 Essential (primary) hypertension; E11.9 Type 2 diabetes mellitus without complications; E78.00 Pure hypercholesterolemia, unspecified; J44.9 Chronic obstructive pulmonary disease, unspecified; G47.30 Sleep apnea, unspecified; F51.9 Sleep disorder not due to a substance or known physiological condition, unspecified; K21.9 Gastro-esophageal reflux disease without esophagitis; Z79.899 Other long term (current) drug therapy
CPT/HCPCS: 36415; 74176; 80053; 81001; 83690; 84484; 85025; 99284

== ENCOUNTER 2021-05-10 05:48 | Day surgery (SDC) | payer MEDICARE ==
[2021-05-10] MEDS ORDERED: Lactated Ringers 1,000 ML IV SCH (06:30)
[2021-05-10] MEDS ORDERED: Xylocaine-Mpf 2% 5 Ml Vial ONE (07:21)
[2021-05-10] MEDS ORDERED: DIPRIVAN 200 MG/20 ML IV ONE (08:07)
[2021-05-10 08:53] VITALS: BP 155/83; PULSE 70; O2SAT 98
--- NOTE | 2021-05-10 09:10 | OP ---
SURGERY DATE/TIME: 05/10/2021 0738 PREOPERATIVE DIAGNOSIS: Abdominal pain. POSTOPERATIVE DIAGNOSES: 1) Hiatal hernia. 2) Diverticulosis. PROCEDURES: 1) Diagnostic EGD. 2) Colonoscopy. SURGEON: Dawit Horton M.D. ANESTHESIA: MAC by Dami Araujo CRNA. ESTIMATED BLOOD LOSS: None. SPECIMENS: None. DESCRIPTION OF PROCEDURE: After informed written consent was obtained, the patient was taken to the endoscopy suite. He had a bite block inserted and was placed in left lateral decubitus position. Anesthesia was titrated to desired level of consciousness. The endoscope was inserted in the posterior oropharynx and under direct visualization the esophagus was easily traversed. The gastroesophageal junction had a normal appearance. There was a sliding hiatal hernia appreciable upon entry. Gastric mucosa had a normal rugated appearance free of any lesions or defects. The pylorus was traversed and the first and second portions of the duodenum likewise had a normal mucosal appearance with no ulcerations or abnormalities appreciable. Upon withdrawal again all mucosal structures appeared unremarkable with the exception of a hiatal hernia that was sliding in nature. The scope was removed and the scopes were switched. Digital rectal exam was performed and scope was inserted in the rectum and sequentially the entire colonic mucosa was traversed. The level of the cecum was reached and verified with direct visualization of the ileocecal valve. Upon withdrawal careful mucosal inspection revealed no gross abnormalities. There were scattered diverticula mostly in the sigmoid colon but no other mucosal abnormalities were found. Prior to withdrawal retroflexion showed no internal lesions. The scope was removed and the patient was transferred to the recovery room in good condition.
== END 2021-05-10 09:03 | disposition home or self-care (01) ==
LOC: SDC 05:48
PROVIDERS: ATTEND Family Medicine
DX: K44.9 Diaphragmatic hernia without obstruction or gangrene (principal); K57.30 Diverticulosis of large intestine without perforation or abscess without bleeding; I10 Essential (primary) hypertension; E11.9 Type 2 diabetes mellitus without complications; Z79.899 Other long term (current) drug therapy
CPT/HCPCS: 82947; J2704

== ENCOUNTER 2021-06-04 10:04 | Emergency (ER) | payer MEDICARE ==
[2021-06-04] MEDS ORDERED: Sodium Chloride 0.9% 1000 ML 1,000 ML IV SCH (10:45)
--- NOTE | 2021-06-04 10:47 | ERPHSYRPT ---
- History of Present Illness Time Seen by Provider: 06/04/21 10:44 Source: patient Exam Limitations: no limitations Patient Subjective Stated Complaint: Pt c/o of weakness, pain, numb in left side of face, dizziness for the past couple of days Triage Nursing Assessment: Pt brought self to the ER, vitals wnl, rates overall pain as 6/10, SOB, nauseous when he eats, pulses normal, skin n/w/d, doesn't appear to be in any distress Physician History: Pt c/o of weakness, pain, numb in left side of face, dizziness for the past couple of days SOB, nauseous when he eats, Timing/Duration: day(s) (two days) Severity: mild Associated Symptoms: nausea, shortness of breath Allergies/Adverse Reactions: No Known Drug Allergies Allergy (Verified 06/04/21 10:18) Home Medications: Metformin HCl 1000 mg [Glucophage 1000 MG] 1,000 mg PO BID 05/17/15 [History] Nitroglycerin [Nitrostat] 0.4 mg SL Q5MIN PRN MR X 3 PRN 07/03/15 [History] Carvedilol [Coreg] 25 mg PO BID 05/07/17 [History] Insulin Aspart [Novolog] 100 unit SQ DAILY 09/12/19 [History] Gabapentin [Neurontin] 600 mg PO BID 07/24/20 [History] Hydrochlorothiazide 25 mg [hydroDIURIL 25 MG] 25 mg PO DAILY 07/24/20 [History] Lisinopril 5 mg [Zestril 5 MG] 30 mg PO HS 07/24/20 [History] Rosuvastatin Calcium [Crestor] 40 mg PO DAILY 07/24/20 [History] Buspirone HCl 5 mg [Buspar 5 mg] 5 mg PO BID 06/04/21 [History] HydrALAzine HCL 25 MG TAB [Apresoline 25 MG TABLET] 25 mg PO TID 06/04/21 [History] Linaclotide [Linzess] 290 mg PO DAILY 06/04/21 [History] Hx Tetanus, Diphtheria Vaccination/Date Given: Yes Hx Influenza Vaccination/Date Given: No Hx Pneumococcal Vaccination/Date Given: No Travel Risk - International Travel Have you traveled outside of the country in past 3 weeks: No - Coronavirus Screening Are you exhibiting any of the following symptoms?: No Close contact with a COVID-19 positive Pt in past 14-21 Days: No - Vaccine Status Have you recieved a Covid-19 vaccination: Yes Inside Meter Tester: Pfizer - Vaccination Dates Date of 2cond Vaccination (if applicable): 01/31/2021 - Review of Systems Constitutional: Weakness Eyes: No Symptoms Ears, Nose, & Throat: No Symptoms Respiratory: Dyspnea on Exertion (MIRELES), No Cough, No Dyspnea Cardiac: No Chest Pain, No Edema, No Syncope Abdominal/Gastrointestinal: Nausea, No Abdominal Pain, No Vomiting, No Diarrhea Genitourinary Symptoms: No Dysuria Musculoskeletal: No Back Pain, No Neck Pain Skin: No Rash Neurological: Focal Weakness, Headache, Parasthesia, No Dizziness, No Sensory Changes Psychological: No Symptoms Endocrine: No Symptoms All Other Systems: Reviewed and Negative - Past Medical History Pertinent Past Medical History: Yes Neurological History: Migraines, Seizures ENT History: No Pertinent History Cardiac History: Coronary Artery Disease, High Cholesterol, Hypertension Respiratory History: COPD, Sleep Apnea Endocrine Medical History: Diabetes Type II Musculoskeletal History: Fractures GI Medical History: Esophageal Disorder, GERD History: No Pertinent History Psycho-Social History: Depression, Panic Disorder Male Reproductive Disorders: Prostate Problems Other Medical History: HX FX LEFT FOOT, LEFT LOWER ARM. PATIENT STATES HAS NERVOUS PROBLEM AND PICKS SORES/SCABS ON ARMS AND LEGS. GERD, DEPRESSION - Past Surgical History Past Surgical History: Yes Neuro Surgical History: No Pertinent History Cardiac: Cardiac Catheterization Respiratory: No Pertinent History Gastrointestinal: No Pertinent History Genitourinary: No Pertinent History Musculoskeletal: No Pertinent History Male Surgical History: No Pertinent History Other Surgical History: uvula removed. carpal tunnel right hand - Social History Smoking Status: Former smoker Exposure to second hand smoke: No Alcohol Use: None Drug Use: none Patient Lives Alone: Yes Significant Family History: heart disease, diabetes, hypertension - Nursing Vital Signs Nursing Vital Signs: Initial Vital Signs Temperature 96.9 F 06/04/21 10:10 Pulse Rate 70 06/04/21 10:10 Blood Pressure 106/58 06/04/21 10:10 O2 Sat by Pulse Oximetry 97 06/04/21 10:10 Pain Scale Pain Intensity 6 - Physical Exam General Appearance: mild distress, alert Eye Exam: PERRL/EOMI, eyes nml inspection Ears, Nose, Throat Exam: normal ENT inspection, TMs normal, pharynx normal, moist mucous membranes Neck Exam: normal inspection, non-tender, supple, full range of motion Respiratory Exam: normal breath sounds, lungs clear, No respiratory distress Cardiovascular Exam: regular rate/rhythm, normal heart sounds, normal peripheral pulses Gastrointestinal/Abdomen Exam: soft, normal bowel sounds, No tenderness, No mass Back Exam: normal inspection, normal range of motion, No CVA tenderness, No vertebral tenderness Extremity Exam: normal inspection, normal range of motion, pelvis stable Neurologic Exam: alert, oriented x 3, cooperative, sensory deficit (left side of face), No motor deficits Skin Exam: normal color, warm, dry, No rash Lymphatic Exam: No adenopathy SpO2: 97 - Course Nursing assessment & vital signs reviewed: Yes - Radiology Exams Chest X-ray Interpretation: Reviewed by me, Negative - CT Exams Head CT Interpretation: Tele-radiologist Report (negative) Ordered Tests: Active Orders 24 hr Category Date Time Status EKG-ER Only STAT Care 06/04/21 10:41 Active IV Insertion STAT Care 06/04/21 10:53 Active CHEST 2 VIEWS (PA AND LAT) Stat Exams 06/04/21 10:41 Taken HEAD WITHOUT CONTRAST [CT] Stat Exams 06/04/21 10:42 Taken CBC W DIFF Stat Lab 06/04/21 10:50 Completed CMP Stat Lab 06/04/21 10:50 Completed TROPONIN Stat Lab 06/04/21 10:50 Completed UA W/RFX UR CULTURE Stat Lab 06/04/21 11:12 Completed Medication Summary Generic Name Dose Route Start Last Admin Trade Name Uriel PRN Reason Stop Dose Admin Sodium Chloride 1,000 mls @ 100 mls/hr 06/04/21 10:45 06/04/21 10:57 Sodium Chloride 0.9% 1000 Ml IV 07/04/21 10:44 100 mls/hr .Q10H LACY Administration Lab/Rad Data: Laboratory Result Diagrams 06/04/21 10:50 06/04/21 10:50 Laboratory Results 06/04/21 06/04/21 06/04/21 Range/Units 11:12 10:50 10:50 WBC 6.8 (4.0-10.5) K/mm3 RBC 4.72 (4.1-5.6) M/mm3 Hgb 14.2 (12.5-18.0) gm/dl Hct 41.9 L (42-50) % MCV 88.8 (78-100) fl MCH 30.1 (26-32) pg MCHC 33.9 (32-36) g/dl RDW 14.1 H (11.5-14.0) % Plt Count 210 (150-450) K/mm3 MPV 9.7 (7.5-11.0) fl Gran % 60.1 (36.0-66.0) % Eos # (Auto) 0.16 (0-0.5) Absolute Lymphs (auto) 1.74 (1.0-4.6) Absolute Monos (auto) 0.76 (0.0-1.3) Lymphocytes % 25.7 (24.0-44.0) % Monocytes % 11.2 (0.0-12.0) % Eosinophils % 2.4 (0.00-5.0) % Basophils % 0.6 (0.0-0.4) % Absolute Granulocytes 4.07 (1.4-6.9) Basophils # 0.04 (0-0.4) Sodium 139 (137-145) mmol/L Potassium 4.7 (3.5-5.1) mmol/L Chloride 106 (98-107) mmol/L Carbon Dioxide 21 L (22-30) mmol/L Anion Gap 16.5 H (5-15) MEQ/L BUN 31 H (9-20) mg/dL Creatinine 1.17 (0.66-1.25) mg/dL Estimated GFR > 60.0 ML/MIN Glucose 214 H (74-106) mg/dL Calcium 9.2 (8.4-10.2) mg/dL Total Bilirubin 0.30 (0.2-1.3) mg/dL AST 22 (17-59) U/L ALT 23 (0-50) U/L Alkaline Phosphatase 56 (38-126) U/L Troponin I < 0.012 (0.000-0.034) ng/mL Serum Total Protein 7.0 (6.3-8.2) g/dL Albumin 4.1 (3.5-5.0) g/dL Urine Color JOSE (YELLOW) Urine Appearance CLOUDY (CLEAR) Urine pH 5.0 (5-6) Ur Specific Jasper 1.018 (1.005-1.025) Urine Protein 100 (Negative) Urine Ketones TRACE (NEGATIVE) Urine Blood NEGATIVE (0-5) Bonilla/ul Urine Nitrite NEGATIVE (NEGATIVE) Urine Bilirubin NEGATIVE (NEGATIVE) Urine Urobilinogen 2 (0-1) mg/dL Ur Leukocyte Esterase NEGATIVE (NEGATIVE) Urine WBC (Auto) 3-5 (0-5) /HPF Urine RBC (Auto) NONE SEEN (0-2) /HPF U Hyaline Cast (Auto) 11-25 (0-2) /LPF U Epithel Cells (Auto) NONE (FEW) /HPF Urine Bacteria (Auto) RARE (NEGATIVE) /HPF Urine Mucus (Auto) SLIGHT (NEGATIVE) /HPF Urine Culture Reflexed NO (NO) Urine Glucose NEGATIVE (NEGATIVE) mg/dL - Progress Progress: improved Counseled pt/family regarding: lab results, diagnosis, need for follow-up, rad results - Departure Departure Disposition: Home Clinical Impression: COVID-19 virus infection, Left facial numbness Condition: Stable Critical Care Time: Yes Critical Care Time(excluding separately billable procedures): Critical 30-74 mi ns Referrals: BROOKLYN FRITZ MD [Primary Care Provider] - Follow Up with PCP/3 days Additional Instructions: Discharge/Care Plan VIKASHJORDAN KEANE was seen on 06/04/21 in the Emergency Room. The patient was counseled regarding Diagnosis,Lab results, Imaging studies, need for follow up and when to return to the Emergency Room. Prescriptions given: Discharge Note I have spoken with the patient and/or caregivers. I have explained the patient's condition, diagnosis and treatment plan based on the information available to me at this time. I have answered the patient's and/or caregiver's questions and addressed any concerns. The patient and/or caregivers have as good understanding of the patient's diagnosis, condition and treatment plan as can be expected at this point. The vital signs have been stable. The patient's condition is stable and appropriate for discharge from the emergency department. The patient will pursue further outpatient evaluation with the primary care physician or other designated or consulting physician as outlined in the discharge instructions. The patient and/or caregivers are agreeable to this plan of care and follow-up instructions have been explained in detail. The patient and/or caregivers have received these instruction. The patient/and or caregivers are aware that any significant change in condition or worsening of symptoms should prompt an immediate return to this or the closest emergency department or call 911. JORDAN SUH was seen on 06/04/21 n the Emergency Room. At that time you were treated for an emergent condition, during your visit Laboratory, Radiology and/or other procedures may have been ordered. It is very important that you follow-up with your Primary Care Physician BROOKLYN FRITZ within the next 24- 48 hours to review your Emergency Room visit and the final results of testing that was ordered. Some test results such as Urine Cultures, Blood Cultures, and other cultures if ordered will not be finalized for 24-48 hours. If you do not have a Primary Care Provider please call the medical records department at [phone] ext [phone] to obtain a copy of your results or you may sign into our patient portal to obtain these results by visiting us @ [email or web address] and completing the following steps: 1. Click on the Patient Portal link 2. Click the Patient Self Enrollment Link to complete the enrollment form and entering your 3. Once the enrollment form is completed you will receive an email with a temporary ID and password at the email address you provided. 4. Next choose a user name and password. Your user name must be at least 4 characters long and your password must be at least 4 characters long. 5. Choose a security question from the list and provide your answer to the question. If you already have signed into the Health Portal you may access your Health Care Information 29/04 by the following steps: 1. Login to our website @ [email or web address] 2. Enter your original user name and password. FAQS The [facility] Health Portal is an online tool that contains your Lab Results, Radiology Reports, Visit History, Discharge Instructions and Health Summary Lab and Radiology Results will not be available for 72 hours on the portal. The Portal is a secure site, passwords are encryted and URLs are re-written so they cannot be copied and pasted. You and authorized family members are the only ones who can access your Portal. Also there is a timeout feature that protects your information if you leave the Portal page open. If you have technical difficulty please use the Contact Us link on the page this will allow you to submit any questions you have regarding the Portal or you may contact the Medical Record Department at [phone] ext [phone].
[2021-06-04] MEDS ORDERED: Sodium Chloride 0.9% 1000 ML 1,000 ML ONE (10:56)
[2021-06-04 11:08] LABS: Absolute Neutrophil Ct (ANC) 4.07 (1.4-6.9); BASOPHIL % 0.6 % (0.0-0.4); Basophil (Absolute #) 0.04 (0-0.4); Eosinophil % 2.4 % (0.00-5.0); Eosinophil (Absolute #) 0.16 (0-0.5); Hematocrit 41.9 % (42-50); Hemoglobin 14.2 gm/dl (12.5-18.0); Lymphocyte (Absolute #) 1.74 (1.0-4.6); Lymphocytes % 25.7 % (24.0-44.0); Mean Cell Volume 88.8 fl (78-100); Mean Corpuscular Hemoglobin 30.1 pg (26-32); Mean Corpuscular Hgb Concent. 33.9 g/dl (32-36); Mean Platelet Volume 9.7 fl (7.5-11.0); Monocyte (Absolute #) 0.76 (0.0-1.3); Monocytes % 11.2 % (0.0-12.0); Neutrophil % 60.1 % (36.0-66.0); Platelet Count 210 K/mm3 (150-450); Red Blood Count 4.72 M/mm3 (4.1-5.6); Red Cell Distribution Width 14.1 % (11.5-14.0); White Blood Count 6.8 K/mm3 (4.0-10.5)
[2021-06-04 11:25] LABS: ALBUMIN 4.1 g/dL (3.5-5.0); ALKALINE PHOSPHATASE 56 U/L (38-126); ANION GAP 16.5 MEQ/L (5-15); BLOOD UREA NITROGEN 31 mg/dL (9-20); CHLORIDE 106 mmol/L (98-107); Calcium 9.2 mg/dL (8.4-10.2); Carbon Dioxide 21 mmol/L (22-30); Creatinine 1 1.17 mg/dL (0.66-1.25); EST GLOMERULAR FILTRATION RATE > 60.0 ML/MIN; Glucose 214 mg/dL (74-106); Potassium 4.7 mmol/L (3.5-5.1); SGOT/AST 22 U/L (17-59); SGPT/ALT 23 U/L (0-50); SODIUM 139 mmol/L (137-145); TROPONIN < 0.012 ng/mL (0.000-0.034)
[2021-06-04 11:41] LABS: Appearance CLOUDY (CLEAR); Bacteria RARE /HPF (NEGATIVE); Bilirubin NEGATIVE (NEGATIVE); Blood NEGATIVE Ery/ul (0-5); Glucose NEGATIVE (NEGATIVE); Ketones TRACE (NEGATIVE); Leukocyte Esterase NEGATIVE (NEGATIVE); Mucus SLIGHT /HPF (NEGATIVE); Nitrite NEGATIVE (NEGATIVE); Protein,Urine Dip 100 (Negative); Specific Gravity 1.018 (1.005-1.025); Urobilinogen 2 mg/dL (0-1)
[2021-06-04 11:43] LABS: RBC NONE SEEN /HPF (0-2)
[2021-06-04 13:01] VITALS: O2SAT 97
[2021-06-04 13:08] VITALS: BP 149/65; PULSE 72
--- NOTE | 2021-06-04 18:48 | XRAY ---
Indication: Dizziness. Comparison: July 24, 2020. PA/lateral chest again demonstrates normal heart and lungs with incidental bilateral calcified granulomas. Bony thorax intact. No new/acute findings.
--- NOTE | 2021-06-04 18:48 | XRAY ---
Indication: Dizziness. No known injury. Multiple contiguous axial images obtained through the head without contrast. Comparison: September 14, 2020. Again age-appropriate global atrophy and minimal periventricular degenerative micro-ischemia bilaterally. No acute intracranial hemorrhage, abnormal extra-axial fluid collection, or mass effect. Fourth ventricle is midline without hydrocephalus. Bony calvarium intact. Visualized paranasal sinuses and mastoid air cells are clear. Impression: Continued nonacute senile brain. Comment: Preliminary interpretation made by [facility]. No critical discrepancy.
== END 2021-06-04 13:11 | disposition home or self-care (01) ==
LOC: ED 10:04
DX: U07.1 COVID-19 (principal); R20.0 Anesthesia of skin
CPT/HCPCS: 36000; 36415; 70450; 71046; 80053; 81001; 84484; 85025; 93005; 96360; 96361; 99284; 99291

== ENCOUNTER 2021-06-18 06:52 | Emergency (ER) | payer MEDICARE ==
[2021-06-18] MEDS ORDERED: BABY ASPIRIN 81 MG CHEW PO ONE (07:20)
[2021-06-18] MEDS ORDERED: BABY ASPIRIN 81 MG CHEW ONE (07:24)
[2021-06-18 07:32] LABS: Absolute Neutrophil Ct (ANC) 3.87 (1.4-6.9); BASOPHIL % 0.5 % (0.0-0.4); Basophil (Absolute #) 0.03 (0-0.4); Eosinophil % 2.5 % (0.00-5.0); Eosinophil (Absolute #) 0.15 (0-0.5); Hematocrit 37.4 % (42-50); Hemoglobin 12.7 gm/dl (12.5-18.0); Lymphocyte (Absolute #) 1.31 (1.0-4.6); Lymphocytes % 22.2 % (24.0-44.0); Mean Cell Volume 89.3 fl (78-100); Mean Corpuscular Hemoglobin 30.3 pg (26-32); Mean Platelet Volume 9.3 fl (7.5-11.0); Monocyte (Absolute #) 0.53 (0.0-1.3); Neutrophil % 65.8 % (36.0-66.0); Platelet Count 191 K/mm3 (150-450); Red Blood Count 4.19 M/mm3 (4.1-5.6); Red Cell Distribution Width 13.9 % (11.5-14.0); White Blood Count 5.9 K/mm3 (4.0-10.5)
[2021-06-18] MEDS ORDERED: DUONEB 0.5-3 MG/3 ml Neb IH ONE ×2 (07:43→08:17)
[2021-06-18] MEDS ORDERED: MORPHINE SULFATE 4 MG INJ IV ONE (07:43)
[2021-06-18] MEDS ORDERED: Zofran 4 MG/2 ML VIAL IV ONE (07:43)
--- NOTE | 2021-06-18 07:48 | ERPHSYRPT ---
- History of Present Illness Time Seen by Provider: 06/18/21 07:41 Source: patient Exam Limitations: no limitations Patient Subjective Stated Complaint: pt states "I'm having trouble breathing." Triage Nursing Assessment: pt ambulated into the er; pt is axo x4; c/o SOB; pt states 10/10 pain to chest; pt states "I have chest pressure when I breathe deep."; no visible respiratory distress; forceful dry hacking cough; clear lung sounds in all lobes; hypertension Physician History: 56 years old male with history of hypertension, hyperlipidemia, diabetes mellitus, COPD presented in the ER with chief complaint of shortness of breath and chest pressure since last night. Reports difficulty breathing especially with lying down and taking deep breath with a constant pressure in the center of the chest with associated mild cough without fever or chills. No palpitations. Reports associated nausea without vomiting. Timing/Duration: yesterday, constant, gradual onset, worse Activities at Onset: rest Severity of Dyspnea-Max: moderate Severity of Dyspnea-Current: moderate Possible Cause: unknown cause Modifying Factors: Worsens With: coughing, deep breath, lying down Associated Symptoms: cough, chest pain/discomfort, heaviness, painful breathing, tightness Allergies/Adverse Reactions: No Known Drug Allergies Allergy (Verified 06/18/21 06:54) Home Medications: Metformin HCl 1000 mg [Glucophage 1000 MG] 1,000 mg PO BID 05/17/15 [History] Nitroglycerin [Nitrostat] 0.4 mg SL Q5MIN PRN MR X 3 PRN 07/03/15 [History] Carvedilol [Coreg] 25 mg PO BID 05/07/17 [History] Insulin Aspart [Novolog] 100 unit SQ DAILY 09/12/19 [History] Gabapentin [Neurontin] 600 mg PO BID 07/24/20 [History] Hydrochlorothiazide 25 mg [hydroDIURIL 25 MG] 25 mg PO DAILY 07/24/20 [History] Lisinopril 5 mg [Zestril 5 MG] 30 mg PO HS 07/24/20 [History] Rosuvastatin Calcium [Crestor] 40 mg PO DAILY 07/24/20 [History] Buspirone HCl 5 mg [Buspar 5 mg] 5 mg PO BID 06/04/21 [History] HydrALAzine HCL 25 MG TAB [Apresoline 25 MG TABLET] 25 mg PO TID 06/04/21 [History] Linaclotide [Linzess] 290 mg PO DAILY 06/04/21 [History] Hx Tetanus, Diphtheria Vaccination/Date Given: Yes Hx Influenza Vaccination/Date Given: No Hx Pneumococcal Vaccination/Date Given: No Travel Risk - International Travel Have you traveled outside of the country in past 3 weeks: No - Coronavirus Screening Are you exhibiting any of the following symptoms?: No Close contact with a COVID-19 positive Pt in past 14-21 Days: No - Vaccine Status Have you recieved a Covid-19 vaccination: Yes Parts Counterman: Sgnam - Vaccination Dates Date of 2cond Vaccination (if applicable): 01/31/2021 - Review of Systems Constitutional: No Symptoms Eyes: No Symptoms Ears, Nose, & Throat: No Symptoms Respiratory: Cough, Dyspnea Cardiac: Chest Pain Abdominal/Gastrointestinal: Nausea Genitourinary Symptoms: No Symptoms Musculoskeletal: No Symptoms Skin: No Symptoms Neurological: No Symptoms Psychological: No Symptoms Endocrine: No Symptoms Hematologic/Lymphatic: No Symptoms Immunological/Allergic: No Symptoms - Past Medical History Pertinent Past Medical History: Yes Neurological History: Migraines, Seizures ENT History: No Pertinent History Cardiac History: Coronary Artery Disease, High Cholesterol, Hypertension Respiratory History: COPD, Sleep Apnea Endocrine Medical History: Diabetes Type II Musculoskeletal History: Fractures GI Medical History: Esophageal Disorder, GERD History: No Pertinent History Psycho-Social History: Depression, Panic Disorder Male Reproductive Disorders: Prostate Problems Other Medical History: HX FX LEFT FOOT, LEFT LOWER ARM. PATIENT STATES HAS NERVOUS PROBLEM AND PICKS SORES/SCABS ON ARMS AND LEGS. GERD, DEPRESSION - Past Surgical History Past Surgical History: Yes Neuro Surgical History: No Pertinent History Cardiac: Cardiac Catheterization Respiratory: No Pertinent History Gastrointestinal: No Pertinent History Genitourinary: No Pertinent History Musculoskeletal: No Pertinent History Male Surgical History: No Pertinent History Other Surgical History: uvula removed. carpal tunnel right hand - Social History Smoking Status: Former smoker Exposure to second hand smoke: No Alcohol Use: None Drug Use: none Patient Lives Alone: Yes Significant Family History: heart disease, diabetes, hypertension - Nursing Vital Signs Nursing Vital Signs: Initial Vital Signs Temperature 97.1 F 06/18/21 06:54 Pulse Rate 67 06/18/21 06:54 Respiratory Rate 20 09/12/21 06:54 Blood Pressure 181/84 06/18/21 06:54 O2 Sat by Pulse Oximetry 99 06/18/21 06:54 Pain Scale Pain Intensity 0 - Physical Exam General Appearance: no apparent distress, alert, anxiety Eye Exam: PERRL/EOMI, eyes nml inspection Ears, Nose, Throat Exam: hearing grossly normal, normal ENT inspection Neck Exam: normal inspection, non-tender, supple, full range of motion Respiratory Exam: normal breath sounds, lungs clear Cardiovascular/Chest Exam: normal heart sounds, regular rate/rhythm Abdominal/Gastrointestinal Exam: soft, normal bowel sounds, No tenderness Extremity Exam: non-tender, normal range of motion Neurologic Exam: alert, oriented x 3, cooperative Skin Exam: normal color SpO2 Interpretation: normal SpO2: 99 O2 Delivery: Room Air - Course EKG Interpreted by Me: RATE (66), Sinus Rhythm, NORMAL AXIS, NORMAL INTERVALS, Non-specific ST Changes Ordered Tests: Active Orders 24 hr Category Date Time Status Side Sawyer STAT Care 06/18/21 07:21 Active EKG-ER Only STAT Care 06/18/21 07:20 Active IV Insertion STAT Care 06/18/21 07:20 Active CHEST 1 VIEW (PORTABLE) Stat Exams 06/18/21 07:21 Completed CHEST WITH CONTRAST [CT] Stat Exams 06/18/21 07:59 Taken CBC W DIFF Stat Lab 06/18/21 07:00 Completed CMP Stat Lab 06/18/21 07:00 Completed D-DIMER QUANTITATIVE Stat Lab 06/18/21 07:00 Completed LIPASE Routine Lab 06/18/21 07:00 Completed NT PRO BNP Stat Lab 06/18/21 07:00 Completed TROPONIN Q3H Lab 06/18/21 07:00 Completed TROPONIN Q3H Lab 06/18/21 10:15 Completed TROPONIN Q3H Lab 06/18/21 13:30 Ordered TROPONIN Q3H Lab 06/18/21 16:30 Ordered TROPONIN Q3H Lab 06/18/21 19:30 Ordered Respiratory Therapy Assessment DAILY RT 06/18/21 08:50 Active Medication Summary Discontinued Medications Generic Name Dose Route Start Last Admin Trade Name Freq PRN Reason Stop Dose Admin Albuterol/Ipratropium 3 ml 06/18/21 07:43 06/18/21 08:48 Duoneb 0.5-3 Mg/3 Ml Neb IH 06/18/21 07:44 3 ml STAT ONE Administration Albuterol/Ipratropium Confirm 06/18/21 08:17 Duoneb 0.5-3 Mg/3 Ml Neb Administered 06/18/21 08:18 Dose 3 ml IH .STK-MED ONE Aspirin 324 mg 06/18/21 07:20 06/18/21 07:22 Baby Aspirin 81 Mg Chew PO 06/18/21 07:21 324 mg STAT ONE Administration Aspirin Confirm 06/18/21 07:24 Baby Aspirin 81 Mg Chew Administered 06/18/21 07:25 Dose 324 mg .ROUTE .STK-MED ONE Morphine Sulfate 4 mg 06/18/21 07:43 06/18/21 08:06 Morphine Sulfate 4 Mg Inj IV 06/18/21 07:44 4 mg STAT ONE Administration Morphine Sulfate Confirm 06/18/21 08:05 Morphine Sulfate 4 Mg Inj Administered 06/18/21 08:06 Dose 4 mg .ROUTE .STK-MED ONE Ondansetron HCl 4 mg 06/18/21 07:43 06/18/21 08:06 Zofran 4 Mg/2 Ml Vial IV 06/18/21 07:44 4 mg STAT ONE Administration Ondansetron HCl Confirm 06/18/21 08:05 Zofran 4 Mg/2 Ml Vial Administered 06/18/21 08:06 Dose 4 mg .ROUTE .STK-MED ONE Lab/Rad Data: Laboratory Result Diagrams 06/18/21 07:00 06/18/21 07:00 Laboratory Results 06/18/21 06/18/21 06/18/21 Range/Units 10:15 07:00 07:00 WBC (4.0-10.5) K/mm3 RBC (4.1-5.6) M/mm3 Hgb (12.5-18.0) gm/dl Hct (42-50) % MCV (78-100) fl MCH (26-32) pg MCHC (32-36) g/dl RDW (11.5-14.0) % Plt Count (150-450) K/mm3 MPV (7.5-11.0) fl Gran % (36.0-66.0) % Eos # (Auto) (0-0.5) Absolute Lymphs (auto) (1.0-4.6) Absolute Monos (auto) (0.0-1.3) Lymphocytes % (24.0-44.0) % Monocytes % (0.0-12.0) % Eosinophils % (0.00-5.0) % Basophils % (0.0-0.4) % Absolute Granulocytes (1.4-6.9) Basophils # (0-0.4) D-Dimer 1384 H* (215-500) ng/mL Sodium (137-145) mmol/L Potassium (3.5-5.1) mmol/L Chloride (98-107) mmol/L Carbon Dioxide (22-30) mmol/L Anion Gap (5-15) MEQ/L BUN (9-20) mg/dL Creatinine (0.66-1.25) mg/dL Estimated GFR ML/MIN Glucose (74-106) mg/dL Calcium (8.4-10.2) mg/dL Total Bilirubin (0.2-1.3) mg/dL AST (17-59) U/L ALT (0-50) U/L Alkaline Phosphatase (38-126) U/L Troponin I < 0.012 < 0.012 (0.000-0.034) ng/mL NT-Pro-B Natriuret Pep (0-900) pg/mL Serum Total Protein (6.3-8.2) g/dL Albumin (3.5-5.0) g/dL Lipase 210 (23-300) U/L 06/18/21 06/18/21 Range/Units 07:00 07:00 WBC 5.9 (4.0-10.5) K/mm3 RBC 4.19 (4.1-5.6) M/mm3 Hgb 12.7 (12.5-18.0) gm/dl Hct 37.4 L (42-50) % MCV 89.3 (78-100) fl MCH 30.3 (26-32) pg MCHC 34.0 (32-36) g/dl RDW 13.9 (11.5-14.0) % Plt Count 191 (150-450) K/mm3 MPV 9.3 (7.5-11.0) fl Gran % 65.8 (36.0-66.0) % Eos # (Auto) 0.15 (0-0.5) Absolute Lymphs (auto) 1.31 (1.0-4.6) Absolute Monos (auto) 0.53 (0.0-1.3) Lymphocytes % 22.2 L (24.0-44.0) % Monocytes % 9.0 (0.0-12.0) % Eosinophils % 2.5 (0.00-5.0) % Basophils % 0.5 (0.0-0.4) % Absolute Granulocytes 3.87 (1.4-6.9) Basophils # 0.03 (0-0.4) D-Dimer (215-500) ng/mL Sodium 138 (137-145) mmol/L Potassium 3.6 (3.5-5.1) mmol/L Chloride 104 (98-107) mmol/L Carbon Dioxide 22 (22-30) mmol/L Anion Gap 15.6 H (5-15) MEQ/L BUN 27 H (9-20) mg/dL Creatinine 0.65 L (0.66-1.25) mg/dL Estimated GFR > 60.0 ML/MIN Glucose 214 H (74-106) mg/dL Calcium 9.1 (8.4-10.2) mg/dL Total Bilirubin 0.30 (0.2-1.3) mg/dL AST 23 (17-59) U/L ALT 28 (0-50) U/L Alkaline Phosphatase 99 (38-126) U/L Troponin I (0.000-0.034) ng/mL NT-Pro-B Natriuret Pep 302 (0-900) pg/mL Serum Total Protein 6.6 (6.3-8.2) g/dL Albumin 3.9 (3.5-5.0) g/dL Lipase (23-300) U/L - Progress Progress: improved Air Movement: fair Progress Note: 06/18/21 11:51 56 years old is evaluated for shortness of breath chest pain. His oxygen sat uration is around 98% on room air with no tachypnea or tachycardia given symptomatic treatment, on reevaluation feeling better. EKG did not show any acute ischemic changes and has negative troponins x2. CTA negative for pulmonary embolism but did show some finding with questionable fungal ball/asp ergillosis. Discussed with Dr. Haq, in his opinion this could be from his COPD and does not need anything on emergent basis but patient would be seen outpatient tomorrow. Discussed signs symptoms of worsening needing return to ER which patient seems understanding. Stable for discharge. Blood Culture(s) Obtained: No Antibiotics given: No Discussed with Dr.: Other (Dr. Hammonds) Will see patient in: office Counseled pt/family regarding: lab results, diagnosis, need for follow-up, rad results - Departure Departure Disposition: Home Clinical Impression: Atypical chest pain Dyspnea Qualifiers: Dyspnea type: other forms of dyspnea Qualified Code(s): R06.09 - Other forms of dyspnea Condition: Stable Critical Care Time: No Referrals: BROOKLYN FRITZ MD [Primary Care Provider] - (Tomorrow for reevaluation) TARA HAMMONDS [ACTIVE STAFF] - (call [phone] tomorrow morning for reevaluation and appointment with Dr. Hammonds pulmonology.) Instructions: Shortness of Breath (Dyspnea) (DC) Additional Instructions: Continue using your inhaler. Follow-up with Dr. Haq tomorrow morning. Return to ER for worsening chest pain or shortness of breath.
[2021-06-18 07:53] LABS: ALBUMIN 3.9 g/dL (3.5-5.0); ALKALINE PHOSPHATASE 99 U/L (38-126); ANION GAP 15.6 MEQ/L (5-15); BLOOD UREA NITROGEN 27 mg/dL (9-20); CHLORIDE 104 mmol/L (98-107); Calcium 9.1 mg/dL (8.4-10.2); Carbon Dioxide 22 mmol/L (22-30); Creatinine 1 0.65 mg/dL (0.66-1.25); EST GLOMERULAR FILTRATION RATE > 60.0 ML/MIN; Glucose 214 mg/dL (74-106); NT PRO BNP 302 pg/mL (0-900); Potassium 3.6 mmol/L (3.5-5.1); SGOT/AST 23 U/L (17-59); SGPT/ALT 28 U/L (0-50); SODIUM 138 mmol/L (137-145); Total Protein 6.6 g/dL (6.3-8.2)
[2021-06-18 07:56] LABS: TROPONIN < 0.012 ng/mL (0.000-0.034)
[2021-06-18 07:58] LABS: LIPASE 210 U/L (23-300)
--- NOTE | 2021-06-18 07:59 | XRAY ---
Indication: Chest pain. Short of breath. Comparison: June 04, 2021. Portable chest again demonstrates normal heart and lungs with incidental bilateral calcified granulomas. No new/acute findings.
[2021-06-18] MEDS ORDERED: MORPHINE SULFATE 4 MG INJ ONE (08:05)
[2021-06-18] MEDS ORDERED: Zofran 4 MG/2 ML VIAL ONE (08:05)
[2021-06-18 11:46] VITALS: BP 176/79; PULSE 59; O2SAT 99
--- NOTE | 2021-06-18 17:38 | XRAY ---
Indication: Short of breath. Elevated d-dimer. Multiple contiguous images obtained through the chest using 100 cc Isovue 370 contrast and PE protocol. Comparison: June 03, 2019. There is good opacification of the pulmonary arteries to include the lobar and segmental branches. No pulmonary embolus. Heart is not enlarged. Aorta is normal in course and caliber. No pathologic mediastinal/hilar lymphadenopathy. Lungs inflated with stable left upper lobe calcified granuloma. Minimal bilateral dependent atelectasis. No suspicious pulmonary mass, infiltrate, or effusion. Bony thorax intact again with minimal degenerative changes throughout the spine. Limited upper abdomen again demonstrates fatty liver. Impression: 1. Continued negative pulmonary embolus. No new/acute cardiopulmonary abnormalities. 2. Again incidental fatty liver and old granulomatous disease. Comment: Preliminary interpretation made by [facility]. No critical discrepancy.
== END 2021-06-18 12:04 | disposition home or self-care (01) ==
LOC: ED 06:52
DX: R06.09 Other forms of dyspnea (principal); R07.89 Other chest pain; I10 Essential (primary) hypertension; E78.00 Pure hypercholesterolemia, unspecified; E11.9 Type 2 diabetes mellitus without complications; J44.9 Chronic obstructive pulmonary disease, unspecified; R05 Cough; Z79.899 Other long term (current) drug therapy
CPT/HCPCS: 36000; 36415; 71045; 71260; 80053; 83690; 83880; 84484; 85025; 85379; 93005; 93041; 94640; 96374; 96375; 99284; J2270; J2405; A9270-GY

== ENCOUNTER 2021-07-03 10:17 | Emergency (ER) | payer MEDICARE ==
[2021-07-03] MEDS ORDERED: MORPHINE SULFATE 4 MG INJ IM ONE (10:49)
--- NOTE | 2021-07-03 11:14 | ERPHSYRPT ---
- History of Present Illness Time Seen by Provider: 07/03/21 10:22 Source: patient Exam Limitations: no limitations Patient Subjective Stated Complaint: PT states "I am not sure what I have done but my right groin hurts so bad. I have been lifting furnature for a yardsale." Triage Nursing Assessment: Pt presented alert and oriented X 3, skin Pt ambulates with a limp, pt holding groin when moving. Physician History: 56-year-old male with a history of hypertension, hyperlipidemia, diabetes mellitus presented in the ER with chief complaint of right testicular/groin pain since yesterday, moderate to severe intensity sharp, radiating to right groin without any difficulty urination/increased frequency urgency or hesitancy. Patient reports his right testicle is swollen. Denies any abdominal pain and did not notice any groin swelling/hernia. Timing/Duration: yesterday, constant, gradual onset, worse Quality: sharpness Onset Location: groin, right testicle Pain Radiation: groin Severity of Pain-Max: severe Severity of Pain-Current: moderate Modifying Factors: Improves With: rest. Worsens With: defecating, movement, palpation, position Associated Symptoms: denies symptoms Prior abdominal problems: none Sexual intercourse history: non-contributory Allergies/Adverse Reactions: No Known Drug Allergies Allergy (Verified 06/18/21 06:54) Home Medications: Metformin HCl 1000 mg [Glucophage 1000 MG] 1,000 mg PO BID 05/17/15 [History] Nitroglycerin [Nitrostat] 0.4 mg SL Q5MIN PRN MR X 3 PRN 07/03/15 [History] Carvedilol [Coreg] 25 mg PO BID 05/07/17 [History] Insulin Aspart [Novolog] 100 unit SQ DAILY 09/12/19 [History] Gabapentin [Neurontin] 600 mg PO BID 07/24/20 [History] Hydrochlorothiazide 25 mg [hydroDIURIL 25 MG] 25 mg PO DAILY 07/24/20 [History] Lisinopril 5 mg [Zestril 5 MG] 30 mg PO HS 07/24/20 [History] Rosuvastatin Calcium [Crestor] 40 mg PO DAILY 07/24/20 [History] Buspirone HCl 5 mg [Buspar 5 mg] 5 mg PO BID 06/04/21 [History] HydrALAzine HCL 25 MG TAB [Apresoline 25 MG TABLET] 25 mg PO TID 06/04/21 [History] Linaclotide [Linzess] 290 mg PO DAILY 06/04/21 [History] Hx Tetanus, Diphtheria Vaccination/Date Given: Yes Hx Influenza Vaccination/Date Given: No Hx Pneumococcal Vaccination/Date Given: No Immunizations Up to Date: Yes Travel Risk - International Travel Have you traveled outside of the country in past 3 weeks: No - Coronavirus Screening Are you exhibiting any of the following symptoms?: No Close contact with a COVID-19 positive Pt in past 14-21 Days: No - Vaccine Status Have you recieved a Covid-19 vaccination: Yes 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: [employer] - Vaccination Dates Date of 2cond Vaccination (if applicable): 01/2021 - Past Medical History Pertinent Past Medical History: Yes Neurological History: Migraines, Seizures ENT History: No Pertinent History Cardiac History: Coronary Artery Disease, High Cholesterol, Hypertension Respiratory History: COPD, Sleep Apnea Endocrine Medical History: Diabetes Type II Musculoskeletal History: Fractures GI Medical History: Esophageal Disorder, GERD History: No Pertinent History Psycho-Social History: Depression, Panic Disorder Male Reproductive Disorders: Prostate Problems Other Medical History: HX FX LEFT FOOT, LEFT LOWER ARM. PATIENT STATES HAS NER VOUS PROBLEM AND PICKS SORES/SCABS ON ARMS AND LEGS. GERD, DEPRESSION - Past Surgical History Past Surgical History: Yes Neuro Surgical History: No Pertinent History Cardiac: Cardiac Catheterization Respiratory: No Pertinent History Gastrointestinal: No Pertinent History Genitourinary: No Pertinent History Musculoskeletal: No Pertinent History Male Surgical History: No Pertinent History Other Surgical History: uvula removed. carpal tunnel right hand - Social History Smoking Status: Former smoker Exposure to second hand smoke: No Alcohol Use: None Drug Use: none Patient Lives Alone: Yes Significant Family History: heart disease, diabetes, hypertension - Review of Systems Constitutional: No Symptoms Eyes: Photophobia Respiratory: No Symptoms Cardiac: No Symptoms Abdominal/Gastrointestinal: No Symptoms Genitourinary Symptoms: Testicle Pain Musculoskeletal: No Symptoms Skin: No Symptoms Neurological: No Symptoms Psychological: No Symptoms Endocrine: No Symptoms Hematologic/Lymphatic: No Symptoms - Nursing Vital Signs Nursing Vital Signs: Initial Vital Signs Temperature 97.6 F 07/03/21 10:22 Pulse Rate 64 07/03/21 10:22 Respiratory Rate 20 07/03/21 10:22 Blood Pressure 96/57 07/03/21 10:22 O2 Sat by Pulse Oximetry 95 07/03/21 10:22 Pain Scale Pain Intensity 6 - Physical Exam General Appearance: no apparent distress, alert Eye Exam: PERRL/EOMI Ears, Nose, Throat Exam: normal ENT inspection Neck Exam: normal inspection, full range of motion Respiratory Exam: normal breath sounds, lungs clear Cardiovascular Exam: regular rate/rhythm, normal heart sounds Gastrointestinal/Abdomen Exam: soft, normal bowel sounds, No tenderness, No hernia Male Genital Exam: normal genitalia, epididymal tenderness (Right), scrotum tenderness (R) (Right), circumcised, No hernia mass, No inguinal lymphadenopathy Back Exam: normal inspection Extremity Exam: normal inspection, normal range of motion Neurologic Exam: alert, oriented x 3, cooperative Skin Exam: normal color SpO2 Interpretation: normal SpO2: 95 O2 Delivery: Room Air Ordered Tests: Active Orders 24 hr Category Date Time Status TESTICLE [US] Stat Exams 07/03/21 11:35 Completed UA W/RFX UR CULTURE Stat Lab 07/03/21 11:51 Completed Medication Summary Discontinued Medications Generic Name Dose Route Start Last Admin Trade Name Freq PRN Reason Stop Dose Admin Morphine Sulfate 4 mg 07/03/21 10:49 07/03/21 11:48 Morphine Sulfate 4 Mg Inj IM 07/03/21 10:50 4 mg STAT ONE Administration Morphine Sulfate Confirm 07/03/21 11:46 Morphine Sulfate 4 Mg Inj Administered 07/03/21 11:47 Dose 4 mg .ROUTE .K-MED ONE Lab/Rad Data: Laboratory Results 07/03/21 Range/Units 11:51 Urine Color YELLOW (YELLOW) Urine Appearance CLEAR (CLEAR) Urine pH 5.0 (5-6) Ur Specific [place] 1.010 (1.005-1.025) Urine Protein NEGATIVE (Negative) Urine Ketones NEGATIVE (NEGATIVE) Urine Blood NEGATIVE (0-5) Bonilla/ul Urine Nitrite NEGATIVE (NEGATIVE) Urine Bilirubin NEGATIVE (NEGATIVE) Urine Urobilinogen NEGATIVE (0-1) mg/dL Ur Leukocyte Esterase NEGATIVE (NEGATIVE) Urine WBC (Auto) NONE (0-5) /HPF Urine RBC (Auto) NONE (0-2) /HPF U Epithel Cells (Auto) NONE (FEW) /HPF Urine Bacteria (Auto) NONE (NEGATIVE) /HPF Urine Culture Reflexed NO (NO) Urine Glucose NEGATIVE (NEGATIVE) mg/dL - Progress Progress: improved, re-examined Progress Note: 07/03/21 13:05 He is given morphine for symptomatic relief. Does not have any abdominal tenderness at all. I did not appreciate any hernia. Pain is more in the testicle and epididymis area. Ultrasound rule out torsion, as small Microlith and testicle with some hydrocele. No UTI. Believe patient has some element of epididymitis, will start him on Cipro and outpatient follow-up recommended. Discussed signs symptoms of worsening needing return to ER which he seems understanding. Counseled pt/family regarding: lab results, diagnosis, need for follow-up - Departure Departure Disposition: Home Clinical Impression: Epididymitis, Testicular microlithiasis Condition: Stable Critical Care Time: No Referrals: BROOKLYN FRITZ MD [Primary Care Provider] - (1-2 days for reevaluation) BEENA CHANDLER [COURTESY STAFF] - (Call for appointment and reevaluation) Instructions: Epididymitis (DC) Additional Instructions: Take Tylenol/ibuprofen as needed. Follow-up with primary care and urology for reevaluation. Return to ER for worsening pain, swelling, fever chills etc. Prescriptions: Ciprofloxacin [Cipro 500 MG] 500 mg PO BID #14 tablet
[2021-07-03] MEDS ORDERED: MORPHINE SULFATE 4 MG INJ ONE (11:46)
--- NOTE | 2021-07-03 11:50 | XRAY ---
Indication: Right scrotal pain. Two-dimensional testicular sonogram performed. Comparison: None Both testicles are homogeneous in echogenicity with normal color perfusion. Right testicle measures 4.2 x 2.6 x 4.1 cm and the left measures 4.3 x 2.3 x 4.3 cm. Left testicle demonstrates solitary 2-3 mm microlith. Left and right epididymis bilaterally symmetric and sonographically unremarkable. Tiny bilateral hydroceles, right greater than left. No suspicious extratesticular mass. Impression: 1. Solitary left testicle microlith and tiny nonspecific bilateral hydroceles. 2. Remaining testicular sonogram is negative.
[2021-07-03 12:52] LABS: Appearance CLEAR (CLEAR); Bilirubin NEGATIVE (NEGATIVE); Blood NEGATIVE Ery/ul (0-5); Glucose NEGATIVE (NEGATIVE); Ketones NEGATIVE (NEGATIVE); Leukocyte Esterase NEGATIVE (NEGATIVE); Nitrite NEGATIVE (NEGATIVE); Protein,Urine Dip NEGATIVE (Negative); Urobilinogen NEGATIVE mg/dL (0-1)
[2021-07-03] MEDS ORDERED: Cipro 500 MG PO STA (13:04)
[2021-07-03] MEDS ORDERED: Cipro 500 MG ONE (13:08)
[2021-07-03 13:15] VITALS: BP 104/61; PULSE 88; O2SAT 98
== END 2021-07-03 13:27 | disposition home or self-care (01) ==
LOC: ED 10:17
DX: N45.1 Epididymitis (principal); N50.89 Other specified disorders of the male genital organs; I10 Essential (primary) hypertension; E78.5 Hyperlipidemia, unspecified; E11.9 Type 2 diabetes mellitus without complications; Z79.899 Other long term (current) drug therapy
CPT/HCPCS: 76870; 81001; 96372; 99284; J2270; A9270-GY

== ENCOUNTER 2021-12-12 17:09 | Emergency (ER) | payer MEDICARE ==
--- NOTE | 2021-12-12 17:18 | ERPHSYRPT ---
- History of Present Illness Time Seen by Provider: 12/12/21 17:18 Source: patient Exam Limitations: no limitations Physician History: There is a 56-year-old white male who presents to the emergency department because he was unsure where his blood sugar stood. His level was 216. He is not necessarily symptomatic from anything. He has no chest pain he has no shortness of breath he has no abdominal pain. He has no nausea vomiting or diarrhea. However, what he is looking for is shlomo ornelas 2 test strips so that he can monitor his blood sugar closely while he is waiting for his medication prescriptions to arrive. Timing/Duration: today Severity: mild Associated Symptoms: denies symptoms Allergies/Adverse Reactions: No Known Drug Allergies Allergy (Verified 12/12/21 17:31) Home Medications: Metformin HCl 1000 mg [Glucophage 1000 MG] 1,000 mg PO BID 05/17/15 [History] Nitroglycerin [Nitrostat] 0.4 mg SL Q5MIN PRN MR X 3 PRN 07/03/15 [History] Carvedilol [Coreg] 25 mg PO BID 05/07/17 [History] Insulin Aspart [Novolog] 100 unit SQ DAILY 09/12/19 [History] Gabapentin [Neurontin] 600 mg PO BID 07/24/20 [History] Hydrochlorothiazide 25 mg [hydroDIURIL 25 MG] 25 mg PO DAILY 07/24/20 [History] Lisinopril 5 mg [Zestril 5 MG] 30 mg PO HS 07/24/20 [History] Rosuvastatin Calcium [Crestor] 40 mg PO DAILY 07/24/20 [History] Buspirone HCl 5 mg [Buspar 5 mg] 5 mg PO BID 06/04/21 [History] HydrALAzine HCL 25 MG TAB [Apresoline 25 MG TABLET] 25 mg PO TID 06/04/21 [History] Linaclotide [Linzess] 290 mg PO DAILY 06/04/21 [History] Hx Tetanus, Diphtheria Vaccination/Date Given: Yes Hx Influenza Vaccination/Date Given: No Hx Pneumococcal Vaccination/Date Given: No Travel Risk - International Travel Have you traveled outside of the country in past 3 weeks: No - Coronavirus Screening Are you exhibiting any of the following symptoms?: No Close contact with a COVID-19 positive Pt in past 14-21 Days: No - Vaccine Status Have you recieved a Covid-19 vaccination: Yes 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 - Vaccination Dates Date of 2cond Vaccination (if applicable): 01/2021 - Review of Systems Constitutional: No Symptoms Eyes: No Symptoms Ears, Nose, & Throat: No Symptoms Respiratory: No Symptoms Cardiac: No Symptoms Abdominal/Gastrointestinal: No Symptoms Genitourinary Symptoms: No Symptoms Musculoskeletal: No Symptoms Skin: No Symptoms Neurological: No Symptoms Psychological: No Symptoms Endocrine: No Symptoms Hematologic/Lymphatic: No Symptoms Immunological/Allergic: No Symptoms All Other Systems: Reviewed and Negative - Past Medical History Pertinent Past Medical History: Yes Neurological History: Peripheral Neuropathy, Seizures ENT History: No Pertinent History Cardiac History: Coronary Artery Disease, High Cholesterol, Hypertension, Peripheral Vascular Disease Respiratory History: COPD, Sleep Apnea, Other Endocrine Medical History: Diabetes Type II Musculoskeletal History: Fractures, Osteoarthritis GI Medical History: Esophageal Disorder, GERD History: No Pertinent History Psycho-Social History: Depression, Panic Disorder Male Reproductive Disorders: Prostate Problems Other Medical History: SEIZURES A CHILD BUT NOT AN ADULT. COVID IN 2019. VACCINATED. FX LEFT FOREARM AND ANKLE A CHILD. HX GERD, PANCREATITIS, LOWER EXTREMITY CELLULITIS. HX ARTHROSCOPIC SURGERY LEFT KNEE FOR "CLEANING IT OUT" 2020 (BEFORE ) - Past Surgical History Past Surgical History: Yes Neuro Surgical History: No Pertinent History Cardiac: Cardiac Catheterization Respiratory: No Pertinent History Gastrointestinal: No Pertinent History Genitourinary: No Pertinent History Musculoskeletal: No Pertinent History Male Surgical History: No Pertinent History Other Surgical History: uvula removed. carpal tunnel right hand - Social History Smoking Status: Former smoker Exposure to second hand smoke: No Alcohol Use: None Drug Use: none Patient Lives Alone: Yes Significant Family History: heart disease, diabetes, hypertension - Nursing Vital Signs Nursing Vital Signs: Initial Vital Signs Temperature 97.4 F 12/12/21 17:23 Pulse Rate 82 12/12/21 17:23 Respiratory Rate 18 12/12/21 17:23 Blood Pressure 154/95 12/12/21 17:23 O2 Sat by Pulse Oximetry 97 12/12/21 17:23 Pain Scale Pain Intensity 2 - Physical Exam General Appearance: no apparent distress, alert Eye Exam: PERRL/EOMI, eyes nml inspection Ears, Nose, Throat Exam: normal ENT inspection, moist mucous membranes Neck Exam: normal inspection, non-tender, supple, full range of motion Respiratory Exam: normal breath sounds, lungs clear, No chest tenderness, No respiratory distress Gastrointestinal/Abdomen Exam: No tenderness Rectal Exam: not done Back Exam: normal inspection, normal range of motion, No CVA tenderness, No vertebral tenderness Extremity Exam: normal inspection, normal range of motion, pelvis stable Neurologic Exam: alert, oriented x 3, cooperative, 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 as tested, normal mood/affect, nml cerebellar function, nml station & gait, sensation nml Skin Exam: normal color, warm, dry Lymphatic Exam: No adenopathy SpO2 Interpretation: normal O2 Delivery: Room Air - Course Nursing assessment & vital signs reviewed: Yes Ordered Tests: Active Orders 24 hr Category Date Time Status POCT GLUCOSE Stat Lab 12/12/21 17:25 Completed POCT GLUCOSE Stat Lab 12/12/21 17:26 Completed Lab/Rad Data: Laboratory Results 12/12/21 12/12/21 Range/Units 17:26 17:25 POC Glucometer 216 H 212 H (74 to 106) mg/dL - Progress Progress: unchanged Counseled pt/family regarding: diagnosis, need for follow-up - Departure Departure Disposition: Home Clinical Impression: Encounter for medical screening examination, Hyperglycemia Condition: Stable Critical Care Time: No Referrals: BROOKLYN FRITZ MD [Primary Care Provider] - Follow up/PCP as directed Additional Instructions: Follow-up with [facility] pharmacy to obtain your test strips. Prescriptions: Flash Glucose Scanning [place] [Freestyle Shlomo 14 Day [place]] 1 each DAILY #1 kit
[2021-12-12 17:31] VITALS: BP 154/95; PULSE 82; O2SAT 97
== END 2021-12-12 18:28 | disposition home or self-care (01) ==
LOC: ED 17:09
DX: Z00.01 Encounter for general adult medical examination with abnormal findings (principal); E11.65 Type 2 diabetes mellitus with hyperglycemia; E11.42 Type 2 diabetes mellitus with diabetic polyneuropathy; Z79.4 Long term (current) use of insulin; I25.10 Atherosclerotic heart disease of native coronary artery without angina pectoris; E78.5 Hyperlipidemia, unspecified; I10 Essential (primary) hypertension; I73.9 Peripheral vascular disease, unspecified; J44.9 Chronic obstructive pulmonary disease, unspecified; K21.9 Gastro-esophageal reflux disease without esophagitis; Z86.16 Personal history of COVID-19; Z79.899 Other long term (current) drug therapy
CPT/HCPCS: 82947; 99283

== ENCOUNTER 2022-01-28 13:07 | Emergency (ER) | payer MEDICARE ==
--- NOTE | 2022-01-28 13:33 | ERPHSYRPT ---
- History of Present Illness Source: patient Exam Limitations: other (Extremely poor historian) Patient Subjective Stated Complaint: pt here for muli co's, constipation, abd pain to epigastric area or over a week,swelling x 2 days. Triage Nursing Assessment: pt walked in , alert, resp easy, skin w/d/p, abd large and distended tender to touch, edema to eye lids and ankles Physician History: 56 yo wm who is an extremely poor historian presents w dyspnea x 2 days which is upon exertion and also lying flat. Pt has a h/o DM/HTN/possible CHF. He also has diffuse abdominal pain and mild chest pain. Pt also has inferior substernal pain and epigastric pain rated a 7 on scale. Pain is described as "squeezing." He has nausea wo vomiting and states that he is constipated. Pt also has mild dysuria. He denies cough/coryza/melena/hematochezia/fever. Timing/Duration: day(s) (2 days) Activities at Onset: rest Severity of Dyspnea-Max: moderate Severity of Dyspnea-Current: moderate Possible Cause: no prior episodes Modifying Factors: Improves With: other (Dysnea occurs lying flat and upon exertion) Associated Symptoms: constant, chest pain/discomfort, edema, loss of appetite, ankle swelling, No intermittent, No anxiety, No cough, No fever, No insomnia, No lightheadedness, No wheezing, No weakness, No chills, No hemoptysis, No calf pain, No dizziness, No heaviness, No heart racing, No lightheadedness, No leg swelling, No muscle spasms feet, No muscle spasms hands, No painful breathing, No productive cough, No sweating, No tightness, No tingling face, No tingling h ands Allergies/Adverse Reactions: No Known Drug Allergies Allergy (Verified 01/28/22 13:19) Home Medications: Metformin HCl 1000 mg [Glucophage 1000 MG] 1,000 mg PO BID 05/17/15 [History] Nitroglycerin [Nitrostat] 0.4 mg SL Q5MIN PRN MR X 3 PRN 07/03/15 [History] Carvedilol [Coreg] 25 mg PO BID 05/07/17 [History] Insulin Aspart [Novolog] 100 unit SQ DAILY 09/12/19 [History] Gabapentin [Neurontin] 600 mg PO BID 10/18/20 [History] Hydrochlorothiazide 25 mg [hydroDIURIL 25 MG] 25 mg PO DAILY 07/24/20 [History] Lisinopril 5 mg [Zestril 5 MG] 30 mg PO HS 07/24/20 [History] Rosuvastatin Calcium [Crestor] 40 mg PO DAILY 07/24/20 [History] Buspirone HCl 5 mg [Buspar 5 mg] 5 mg PO BID 06/04/21 [History] HydrALAzine HCL 25 MG TAB [Apresoline 25 MG TABLET] 25 mg PO TID 06/04/21 [History] Linaclotide [Linzess] 290 mg PO DAILY 06/04/21 [History] Hx Tetanus, Diphtheria Vaccination/Date Given: Yes Hx Influenza Vaccination/Date Given: No Hx Pneumococcal Vaccination/Date Given: No Immunizations Up to Date: Yes Travel Risk - International Travel Have you traveled outside of the country in past 3 weeks: No - Coronavirus Screening Are you exhibiting any of the following symptoms?: No - Vaccine Status Have you recieved a Covid-19 vaccination: 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: [employer] - Vaccination Dates Date of 2cond Vaccination (if applicable): 01/2021 - Review of Systems Constitutional: No Symptoms Eyes: No Symptoms Ears, Nose, & Throat: No Symptoms Respiratory: No Symptoms, Dyspnea, Dyspnea on Exertion (MIRELES) Cardiac: No Symptoms, Chest Pain Abdominal/Gastrointestinal: Abdominal Pain, Nausea, Constipation, No Vomiting, No Diarrhea Genitourinary Symptoms: No Symptoms, Dysuria Musculoskeletal: No Symptoms Skin: No Symptoms Neurological: No Symptoms Psychological: No Symptoms Endocrine: No Symptoms Hematologic/Lymphatic: No Symptoms Immunological/Allergic: No Symptoms - Past Medical History Pertinent Past Medical History: Yes Neurological History: Peripheral Neuropathy, Seizures ENT History: No Pertinent History Cardiac History: Coronary Artery Disease, High Cholesterol, Hypertension, Peripheral Vascular Disease Respiratory History: COPD, Sleep Apnea, Other Endocrine Medical History: Diabetes Type II Musculoskeletal History: Fractures, Osteoarthritis GI Medical History: Esophageal Disorder, GERD History: No Pertinent History Psycho-Social History: Depression, Panic Disorder Male Reproductive Disorders: Prostate Problems Other Medical History: SEIZURES A CHILD BUT NOT AN ADULT. COVID IN 2019. VACCINATED. FX LEFT FOREARM AND ANKLE A CHILD. HX GERD, PANCREATITIS, LOWER EXTREMITY CELLULITIS. HX ARTHROSCOPIC SURGERY LEFT KNEE FOR "CLEANING IT OUT" 2020 (BEFORE ) - Past Surgical History Past Surgical History: Yes Neuro Surgical History: No Pertinent History Cardiac: Cardiac Catheterization Respiratory: No Pertinent History Gastrointestinal: No Pertinent History Genitourinary: No Pertinent History Musculoskeletal: No Pertinent History Male Surgical History: No Pertinent History Other Surgical History: uvula removed. carpal tunnel right hand - Social History Smoking Status: Former smoker Exposure to second hand smoke: No Alcohol Use: None Drug Use: none Patient Lives Alone: Yes Significant Family History: heart disease, diabetes, hypertension - Nursing Vital Signs Nursing Vital Signs: Initial Vital Signs Pulse Rate 75 01/28/22 13:08 Respiratory Rate 18 01/28/22 13:08 Blood Pressure 164/83 01/28/22 13:08 O2 Sat by Pulse Oximetry 98 01/28/22 13:08 Pain Scale Pain Intensity 3 Hypertensive - Physical Exam General Appearance: no apparent distress Eye Exam: PERRL/EOMI, eyes nml inspection Ears, Nose, Throat Exam: hearing grossly normal, normal ENT inspection, normal pharynx, abnormal TM (R) Neck Exam: normal inspection, non-tender, supple, full range of motion, No Brudzinski, No Kernig's, No meningismus Respiratory Exam: normal breath sounds, lungs clear, airway intact Cardiovascular/Chest Exam: normal heart sounds, regular rate/rhythm, normal peripheral pulses, No murmur Abdominal/Gastrointestinal Exam: tenderness (Moderate diffuse TTP), distention Extremity Exam: non-tender, pedal edema (1-2+) Peripheral Pulses Exam: carotid (R): 2+, carotid (L): 2+ Neurologic Exam: alert, oriented x 3, 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, 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 as tested, normal mood/affect, nml station & gait, sensation nml Skin Exam: normal color, warm, dry Lymphatic Exam: No adenopathy SpO2 Interpretation: normal SpO2: 98 O2 Delivery: Room Air - Course EKG Interpreted by Me: RATE (NSR/R73/Normal QT-QTc/No acute ST changes/Poor baseline) - Radiology Exams Chest X-ray Interpretation: Interpreted by me (CXR-mild pulmonary vascular congestion at best) - CT Exams Chest CT Interpretation: Tele-radiologist Report (Nothing acute) Abdomen/Pelvis CT Interpretation: Tele-radiologist Report (Air fluid levels wo obstruction) Ordered Tests: Active Orders 24 hr Category Date Time Status EKG-ER Only STAT Care 01/28/22 13:17 Completed IV Insertion STAT Care 01/28/22 13:17 Completed ABDOMEN AND PELVIS W CONTRAST [CT] Stat Exams 01/28/22 14:23 Taken CHEST 1 VIEW (PORTABLE) Stat Exams 01/28/22 13:27 Taken CHEST WITH CONTRAST [CT] Stat Exams 01/28/22 14:23 Taken AMYLASE Stat Lab 01/28/22 13:15 Completed CBC W DIFF Stat Lab 01/28/22 13:15 Completed CMP Stat Lab 01/28/22 13:15 Completed LIPASE Stat Lab 01/28/22 13:15 Completed Lactic Acid Stat Lab 01/28/22 13:25 Completed NT PRO BNP Stat Lab 01/28/22 13:15 Completed TROPONIN Q3H Lab 01/28/22 13:15 Completed TROPONIN Q3H Lab 01/28/22 16:30 Completed Lab/Rad Data: Laboratory Result Diagrams 01/28/22 13:15 01/28/22 13:15 Laboratory Results 01/28/22 01/28/22 01/28/22 Range/Units 16:30 13:40 13:25 WBC (4.0-10.5) K/mm3 RBC (4.1-5.6) M/mm3 Hgb (12.5-18.0) gm/dl Hct (42-50) % MCV (78-100) fl MCH (26-32) pg MCHC (32-36) g/dl RDW (11.5-14.0) % Plt Count (150-450) K/mm3 MPV (7.5-11.0) fl Gran % (36.0-66.0) % Eos # (Auto) (0-0.5) Absolute Lymphs (auto) (1.0-4.6) Absolute Monos (auto) (0.0-1.3) Lymphocytes % (24.0-44.0) % Monocytes % (0.0-12.0) % Eosinophils % (0.00-5.0) % Basophils % (0.0-0.4) % Absolute Granulocytes (1.4-6.9) Basophils # (0-0.4) Sodium (137-145) mmol/L Potassium (3.5-5.1) mmol/L Chloride (98-107) mmol/L Carbon Dioxide (22-30) mmol/L Anion Gap (5-15) MEQ/L BUN (9-20) mg/dL Creatinine (0.66-1.25) mg/dL Estimated GFR ML/MIN Glucose (74-106) mg/dL Lactic Acid 1.8 (0.4-2.0) Calcium (8.4-10.2) mg/dL Total Bilirubin (0.2-1.3) mg/dL AST (17-59) U/L ALT (0-50) U/L Alkaline Phosphatase (38-126) U/L Troponin I < 0.012 (0.000-0.034) ng/mL NT-Pro-B Natriuret Pep (0-900) pg/mL Serum Total Protein (6.3-8.2) g/dL Albumin (3.5-5.0) g/dL Amylase (30-110) U/L Lipase (23-300) U/L Urinalys Dipstick Clnc MAIN LAB Urine Color YELLOW (YELLOW) Urine Appearance CLEAR (CLEAR) Urine pH 6.0 (5-6) Ur Specific [place] 1.020 (1.005-1.025) POC Urine Protein Conf NEGATIVE (Negative) Urine Ketones NEGATIVE (NEGATIVE) Urine Nitrite NEGATIVE (NEGATIVE) Urine Bilirubin NEGATIVE (NEGATIVE) Urine Urobilinogen 0.2 (0-1) mg/dL Urine Leukocytes NEGATIVE (NEGATIVE) Urine WBC (Auto) NONE (0-5) /HPF Urine RBC (Auto) NONE (0-2) /HPF U Epithel Cells (Auto) Not Reportable Urine Bacteria (Auto) Not Reportable Urine RBC NEGATIVE (0-5) Bonilla/ul Urine Mucus (Auto) SLIGHT (NEGATIVE) /HPF Ur Culture Indicated? NO Urine Glucose NEGATIVE (NEGATIVE) mg/dL 01/28/22 01/28/22 01/28/22 Range/Units 13:15 13:15 13:15 WBC (4.0-10.5) K/mm3 RBC (4.1-5.6) M/mm3 Hgb (12.5-18.0) gm/dl Hct (42-50) % MCV (78-100) fl MCH (26-32) pg MCHC (32-36) g/dl RDW (11.5-14.0) % Plt Count (150-450) K/mm3 MPV (7.5-11.0) fl Gran % (36.0-66.0) % Eos # (Auto) (0-0.5) Absolute Lymphs (auto) (1.0-4.6) Absolute Monos (auto) (0.0-1.3) Lymphocytes % (24.0-44.0) % Monocytes % (0.0-12.0) % Eosinophils % (0.00-5.0) % Basophils % (0.0-0.4) % Absolute Granulocytes (1.4-6.9) Basophils # (0-0.4) Sodium 140 (137-145) mmol/L Potassium 4.6 (3.5-5.1) mmol/L Chloride 103 (98-107) mmol/L Carbon Dioxide 24 (22-30) mmol/L Anion Gap 17.0 H (5-15) MEQ/L BUN 14 (9-20) mg/dL Creatinine 0.91 (0.66-1.25) mg/dL Estimated GFR > 60.0 ML/MIN Glucose 151 H (74-106) mg/dL Lactic Acid (0.4-2.0) Calcium 9.5 (8.4-10.2) mg/dL Total Bilirubin 0.40 (0.2-1.3) mg/dL AST 22 (17-59) U/L ALT 29 (0-50) U/L Alkaline Phosphatase 47 (38-126) U/L Troponin I < 0.012 (0.000-0.034) ng/mL NT-Pro-B Natriuret Pep 714 (0-900) pg/mL Serum Total Protein 7.0 (6.3-8.2) g/dL Albumin 4.5 (3.5-5.0) g/dL Amylase 55 (30-110) U/L Lipase 412 H (23-300) U/L Urinalys Dipstick Clnc Urine Color (YELLOW) Urine Appearance (CLEAR) Urine pH (5-6) Ur Specific [place] (1.005-1.025) POC Urine Protein Conf (Negative) Urine Ketones (NEGATIVE) Urine Nitrite (NEGATIVE) Urine Bilirubin (NEGATIVE) Urine Urobilinogen (0-1) mg/dL Urine Leukocytes (NEGATIVE) Urine WBC (Auto) (0-5) /HPF Urine RBC (Auto) (0-2) /HPF U Epithel Cells (Auto) Urine Bacteria (Auto) Urine RBC (0-5) Bonilla/ul Urine Mucus (Auto) (NEGATIVE) /HPF Ur Culture Indicated? Urine Glucose (NEGATIVE) mg/dL 01/28/22 Range/Units 13:15 WBC 7.6 (4.0-10.5) K/mm3 RBC 4.39 (4.1-5.6) M/mm3 Hgb 13.2 (12.5-18.0) gm/dl Hct 39.4 L (42-50) % MCV 89.7 (78-100) fl MCH 30.1 (26-32) pg MCHC 33.5 (32-36) g/dl RDW 14.0 (11.5-14.0) % Plt Count 214 (150-450) K/mm3 MPV 9.9 (7.5-11.0) fl Gran % 66.9 H (36.0-66.0) % Eos # (Auto) 0.12 (0-0.5) Absolute Lymphs (auto) 1.47 (1.0-4.6) Absolute Monos (auto) 0.88 (0.0-1.3) Lymphocytes % 19.4 L (24.0-44.0) % Monocytes % 11.6 (0.0-12.0) % Eosinophils % 1.6 (0.00-5.0) % Basophils % 0.5 (0.0-0.4) % Absolute Granulocytes 5.05 (1.4-6.9) Basophils # 0.04 (0-0.4) Sodium (137-145) mmol/L Potassium (3.5-5.1) mmol/L Chloride (98-107) mmol/L Carbon Dioxide (22-30) mmol/L Anion Gap (5-15) MEQ/L BUN (9-20) mg/dL Creatinine (0.66-1.25) mg/dL Estimated GFR ML/MIN Glucose (74-106) mg/dL Lactic Acid (0.4-2.0) Calcium (8.4-10.2) mg/dL Total Bilirubin (0.2-1.3) mg/dL AST (17-59) U/L ALT (0-50) U/L Alkaline Phosphatase (38-126) U/L Troponin I (0.000-0.034) ng/mL NT-Pro-B Natriuret Pep (0-900) pg/mL Serum Total Protein (6.3-8.2) g/dL Albumin (3.5-5.0) g/dL Amylase (30-110) U/L Lipase (23-300) U/L Urinalys Dipstick Clnc Urine Color (YELLOW) Urine Appearance (CLEAR) Urine pH (5-6) Ur Specific [place] (1.005-1.025) POC Urine Protein Conf (Negative) Urine Ketones (NEGATIVE) Urine Nitrite (NEGATIVE) Urine Bilirubin (NEGATIVE) Urine Urobilinogen (0-1) mg/dL Urine Leukocytes (NEGATIVE) Urine WBC (Auto) (0-5) /HPF Urine RBC (Auto) (0-2) /HPF U Epithel Cells (Auto) Urine Bacteria (Auto) Urine RBC (0-5) Bonilla/ul Urine Mucus (Auto) (NEGATIVE) /HPF Ur Culture Indicated? Urine Glucose (NEGATIVE) mg/dL - Progress Progress: improved Progress Note: 01/28/22 17:14 Pt had BM in ER and pain improved greatly Counseled pt/family regarding: lab results, diagnosis, need for follow-up, rad results - Departure Departure Disposition: Home Clinical Impression: Ileus Condition: Stable Critical Care Time: No Referrals: BROOKLYN FRITZ MD [Primary Care Provider] - Follow up/PCP as directed Instructions: Shortness of Breath (Dyspnea) (DC), Intestinal Pseudo-obstruction (DC) Additional Instructions: Follow up with your family MD on Saturday Return to ER for increasing pain or temperature greater than 100.5 Prescriptions: Dicyclomine HCl 20 mg [Bentyl 20 mg] 20 mg PO BID PRN #14 tablet PRN Reason: Pain
[2022-01-28 13:52] LABS: Absolute Neutrophil Ct (ANC) 5.05 (1.4-6.9); Basophil (Absolute #) 0.04 (0-0.4); Eosinophil % 1.6 % (0.00-5.0); Eosinophil (Absolute #) 0.12 (0-0.5); Hematocrit 39.4 % (42-50); Hemoglobin 13.2 gm/dl (12.5-18.0); Lymphocyte (Absolute #) 1.47 (1.0-4.6); Lymphocytes % 19.4 % (24.0-44.0); Mean Cell Volume 89.7 fl (78-100); Mean Corpuscular Hemoglobin 30.1 pg (26-32); Mean Corpuscular Hgb Concent. 33.5 g/dl (32-36); Mean Platelet Volume 9.9 fl (7.5-11.0); Monocyte (Absolute #) 0.88 (0.0-1.3); Monocytes % 11.6 % (0.0-12.0); Neutrophil % 66.9 % (36.0-66.0); Platelet Count 214 K/mm3 (150-450); Red Blood Count 4.39 M/mm3 (4.1-5.6); White Blood Count 7.6 K/mm3 (4.0-10.5)
[2022-01-28 14:00] LABS: Appearance CLEAR (CLEAR); Bilirubin NEGATIVE (NEGATIVE); Glucose NEGATIVE (NEGATIVE); Ketones NEGATIVE (NEGATIVE); Nitrite NEGATIVE (NEGATIVE); Protein,Urine Dip NEGATIVE (Negative); RBC NEGATIVE Ery/ul (0-5); Urobilinogen 0.2 mg/dL (0-1)
[2022-01-28 14:01] LABS: Dipstick done @ ? MAIN LAB
[2022-01-28 14:02] LABS: Mucus SLIGHT /HPF (NEGATIVE)
[2022-01-28 14:03] LABS: ALBUMIN 4.5 g/dL (3.5-5.0); ALKALINE PHOSPHATASE 47 U/L (38-126); AMYLASE 55 U/L (30-110); BLOOD UREA NITROGEN 14 mg/dL (9-20); CHLORIDE 103 mmol/L (98-107); Calcium 9.5 mg/dL (8.4-10.2); Carbon Dioxide 24 mmol/L (22-30); Creatinine 1 0.91 mg/dL (0.66-1.25); EST GLOMERULAR FILTRATION RATE > 60.0 ML/MIN; Glucose 151 mg/dL (74-106); LIPASE 412 U/L (23-300); Potassium 4.6 mmol/L (3.5-5.1); SGOT/AST 22 U/L (17-59); SGPT/ALT 29 U/L (0-50); SODIUM 140 mmol/L (137-145)
[2022-01-28 14:09] LABS: Urine Cultured Indicated? NO
[2022-01-28 14:20] VITALS: BP 144/48
[2022-01-28 17:28] VITALS: PULSE 72
[2022-01-28 17:56] VITALS: O2SAT 98
--- NOTE | 2022-01-28 18:31 | XRAY ---
Indication: Short of breath. Abdomen pain. Multiple contiguous axial images obtained through the chest using 100 cc Isovue 370 contrast. Comparison: June 18, 2021. Lungs demonstrates stable left upper lobe chunky calcified granuloma. Remaining lungs clear. Heart not enlarged. Aorta is normal in course and caliber. Stable small left hilar calcified node. No pathologic mediastinal/hilar lymphadenopathy. Bony thorax intact again with minimal degenerative changes throughout the spine and small multilevel Schmorl nodes. CT abdomen/pelvis reported separately. Impression: 1. Again chronic bony findings and old granulomatous disease. 2. Remaining CT chest with contrast exam is again negative. Comment: Preliminary interpretation made by [facility]. No critical discrepancy.
--- NOTE | 2022-01-28 18:35 | XRAY ---
Indication: Short of breath. Abdomen pain. Multiple contiguous axial images obtained through the abdomen and pelvis using 100 cc Isovue 370 contrast. Comparison: March 16, 2021. CT chest reported separately. Noncontrasted stomach and bowel loops nonobstructed again with normal appendix. Stable small descending duodenal diverticulum. There remains mild fluid throughout the colon including rectum again favoring diarrhea. No free fluid/air. Again fatty hepatomegaly measuring 21.7 cm, 14.9 cm splenomegaly with calcified granulomas, and 9 mm left adrenal adenoma. Remaining liver, gallbladder, pancreas, spleen, adrenal glands, kidneys, ureters, and bladder are unremarkable. Stable minimal aortoiliac calcifications. No AAA or pathological retroperitoneal lymphadenopathy. Osseous structures intact again with lumbosacral junction degenerative disc disease. Stable 3.5 cm left iliopsoas intramuscular lipoma anterior to the hip. Impression: 1. Again fluid distended colon throughout favoring diarrhea. 2. Chronic findings including duodenal diverticulum, fatty hepatomegaly, splenomegaly, left adrenal adenoma, lumbosacral junction degenerative disc disease, left iliopsoas intramuscular lipoma, and old granulomatous disease. 3. Remaining CT abdomen/pelvis with contrast exam is again negative. Comment: Preliminary interpretation made by [facility]. No critical discrepancy.
--- NOTE | 2022-01-28 18:35 | XRAY ---
Indication: Short of breath. Comparison: June 18, 2021. Portable chest again demonstrates normal heart and lungs with incidental left midlung chunky calcified granuloma. Bony thorax intact again with mild degenerative changes. No new/acute findings.
== END 2022-01-28 17:27 | disposition home or self-care (01) ==
LOC: ED 13:07
DX: K56.7 Ileus, unspecified (principal); R06.00 Dyspnea, unspecified; R10.9 Unspecified abdominal pain; R07.9 Chest pain, unspecified; R11.0 Nausea; K59.00 Constipation, unspecified; R30.0 Dysuria; I10 Essential (primary) hypertension; E78.5 Hyperlipidemia, unspecified; J44.9 Chronic obstructive pulmonary disease, unspecified; E11.42 Type 2 diabetes mellitus with diabetic polyneuropathy; K21.9 Gastro-esophageal reflux disease without esophagitis; Z79.4 Long term (current) use of insulin; Z79.899 Other long term (current) drug therapy
CPT/HCPCS: 36000; 36415; 71045; 71260; 74177; 80053; 81015; 82150; 83605; 83690; 83880; 84484; 85025; 93005; 99284

== ENCOUNTER 2022-07-11 16:36 | Emergency (ER) | payer MEDICARE ==
--- NOTE | 2022-07-11 16:43 | ERPHSYRPT ---
- History of Present Illness Time Seen by Provider: 07/11/22 16:43 Source: patient Exam Limitations: no limitations Physician History: This is an obese 57-year-old white male patient of Dr. Fritz who was using the lawn more earlier and twisted his left knee. There are some swelling in the medial aspect of the left knee. He has had arthroscopic surgery of the left knee in 2020 to deal with a cartilage issue. The patient is diabetic. He has history of hypertension, hyperlipidemia, peripheral neuropathy, peripheral vascular disease, coronary disease and COPD. Patient states that without moving or putting weight on it he has a 5 out of 10 pain level. When he puts weight on it it is 10 out of 10. Method of Injury: twisted (Left knee) Occurred: this afternoon Quality: constant, aching Severity of Pain-Max: moderate Severity of Pain-Current: mild (To moderate) Lower Extremities Pain: knee: left Modifying Factors: Improves With: movement Associated Symptoms: other (Able to bear weight but hurts to do so.) Allergies/Adverse Reactions: No Known Drug Allergies Allergy (Verified 07/11/22 17:14) Home Medications: Metformin HCl 1000 mg [Glucophage 1000 MG] 1,000 mg PO BID 05/17/15 [History] Nitroglycerin [Nitrostat] 0.4 mg SL Q5MIN PRN MR X 3 PRN 07/03/15 [History] Carvedilol [Coreg] 25 mg PO BID 05/07/17 [History] Insulin Aspart [Novolog] 100 unit SQ DAILY 09/12/19 [History] Gabapentin [Neurontin] 600 mg PO BID 07/24/20 [History] Hydrochlorothiazide 25 mg [hydroDIURIL 25 MG] 25 mg PO DAILY 07/24/20 [History] Lisinopril 5 mg [Zestril 5 MG] 30 mg PO HS 07/24/20 [History] Rosuvastatin Calcium [Crestor] 40 mg PO DAILY 07/24/20 [History] Buspirone HCl 5 mg [Buspar 5 mg] 5 mg PO BID 06/04/21 [History] HydrALAzine HCL 25 MG TAB [Apresoline 25 MG TABLET] 25 mg PO TID 06/04/21 [History] Linaclotide [Linzess] 290 mg PO DAILY 06/04/21 [History] Hx Tetanus, Diphtheria Vaccination/Date Given: Yes Hx Influenza Vaccination/Date Given: No Hx Pneumococcal Vaccination/Date Given: No Travel Risk - International Travel Have you traveled outside of the country in past 3 weeks: No - Coronavirus Screening Close contact with a COVID-19 positive Pt in past 14-21 Days: No - Vaccine Status Have you recieved a Covid-19 vaccination: Yes 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[employer] - Vaccination Dates Date of 2cond Vaccination (if applicable): 01/2021 - Review of Systems Constitutional: No Symptoms Eyes: No Symptoms Ears, Nose, & Throat: No Symptoms Respiratory: No Symptoms Cardiac: No Symptoms Abdominal/Gastrointestinal: No Symptoms Genitourinary Symptoms: No Symptoms Musculoskeletal: Injury (Left knee) Neurological: No Symptoms Psychological: No Symptoms Endocrine: No Symptoms Hematologic/Lymphatic: No Symptoms Immunological/Allergic: No Symptoms All Other Systems: Reviewed and Negative - Past Medical History Pertinent Past Medical History: Yes Neurological History: Peripheral Neuropathy, Seizures ENT History: No Pertinent History Cardiac History: Coronary Artery Disease, High Cholesterol, Hypertension, Peripheral Vascular Disease Respiratory History: COPD, Sleep Apnea, Other Endocrine Medical History: Diabetes Type II Musculoskeletal History: Fractures, Osteoarthritis GI Medical History: Esophageal Disorder, GERD History: No Pertinent History Psycho-Social History: Depression, Panic Disorder Male Reproductive Disorders: Prostate Problems Other Medical History: SEIZURES A CHILD BUT NOT AN ADULT. COVID IN 2019. VACCINATED. FX LEFT FOREARM AND ANKLE A CHILD. HX GERD, PANCREATITIS, LOWER EXTREMITY CELLULITIS. HX ARTHROSCOPIC SURGERY LEFT KNEE FOR "CLEANING IT OUT" 2020 (BEFORE ) - Past Surgical History Past Surgical History: Yes Neuro Surgical History: No Pertinent History Cardiac: Cardiac Catheterization Respiratory: No Pertinent History Gastrointestinal: No Pertinent History Genitourinary: No Pertinent History Musculoskeletal: No Pertinent History Male Surgical History: No Pertinent History Other Surgical History: uvula removed. carpal tunnel right hand - Social History Smoking Status: Former smoker Exposure to second hand smoke: No Alcohol Use: None Drug Use: none Patient Lives Alone: Yes Significant Family History: heart disease, diabetes, hypertension - Nursing Vital Signs Nursing Vital Signs: Initial Vital Signs Temperature 97.9 F 07/11/22 17:04 Blood Pressure 141/78 07/11/22 17:04 O2 Sat by Pulse Oximetry 97 07/11/22 17:04 Pain Scale Pain Intensity 5 - Physical Exam General Appearance: no apparent distress, alert, anxiety, obese Eyes, Ears, Nose, Throat Exam: normal ENT inspection, moist mucous membranes Neck Exam: normal inspection, non-tender, supple, full range of motion Cardiovascular/Respiratory Exam: chest non-tender, no respiratory distress Gastrointestinal/Abdominal Exam: non-tender Back Exam: normal inspection, normal range of motion, No CVA tenderness, No vertebral tenderness Hips Exam: bilateral: non-tender, normal inspection, normal range of motion, no evidence of injury Legs Exam: bilateral leg: non-tender, normal inspection, normal range of motion, no evidence of injury Knees Exam: right knee: non-tender, no evidence of injury, left knee: soft tissue tenderness (Medial aspect), swelling (Medial aspect), bilateral knee: normal range of motion Ankle Exam: bilateral ankle: non-tender, normal inspection, normal range of motion, no evidence of injury Foot Exam: bilateral foot: non-tender, normal inspection, normal range of motion, no evidence of injury Neuro/Tendon Exam: normal sensation, normal motor functions, normal tendon functions Mental Status Exam: alert, oriented x 3, cooperative Skin Exam: normal color, warm, dry SpO2 Interpretation: normal O2 Delivery: Room Air - Course Nursing assessment & vital signs reviewed: Yes Ordered Tests: Active Orders 24 hr Category Date Time Status KNEE (1 OR 2 VIEW) Stat Exams 07/11/22 18:32 Taken - Progress Progress Note: 07/11/22 18:43 No acute fracture or dislocation on today's x-ray of the left knee. Counseled pt/family regarding: diagnosis, need for follow-up - Departure Departure Disposition: Home Clinical Impression: Left knee sprain Condition: Stable Critical Care Time: No Referrals: BROOKLYN FRITZ MD [Primary Care Provider] - Follow up/PCP as directed Additional Instructions: Keep the left lower leg elevated above the level your heart. Use ice pack to the area 3 times a day for the next 48 hours. Call your orthopedic surgeon tomorrow morning to make arranges for follow-up appointment. Ambulate as tolerated. Use Tylenol and ibuprofen for pain control if you are not allergic to these medications and have no contraindications to use them.
[2022-07-11 17:14] VITALS: BP 141/78; O2SAT 97
--- NOTE | 2022-07-12 08:56 | XRAY ---
Indication: Twisting injury. Comparison: None AP/crosstable lateral left knee demonstrates small posterior fabella, tiny nonspecific effusion, and mild scattered vascular calcifications. No other bony, articular, or soft tissue abnormalities.
== END 2022-07-11 18:51 | disposition home or self-care (01) ==
LOC: ED 16:36
DX: S83.92XA Sprain of unspecified site of left knee, initial encounter (principal); X50.0XXA Overexertion from strenuous movement or load, initial encounter; Y93.H2 Activity, gardening and landscaping; Y92.007 Garden or yard of unspecified non-institutional (private) residence as the place of occurrence of the external cause; M25.562 Pain in left knee; E11.42 Type 2 diabetes mellitus with diabetic polyneuropathy; I10 Essential (primary) hypertension; E78.5 Hyperlipidemia, unspecified; J44.9 Chronic obstructive pulmonary disease, unspecified; Z79.4 Long term (current) use of insulin; Z79.84 Long term (current) use of oral hypoglycemic drugs; Z79.899 Other long term (current) drug therapy; Z86.16 Personal history of COVID-19
CPT/HCPCS: 73560; 99282

== ENCOUNTER 2022-07-25 12:25 | Emergency (ER) | payer MEDICARE ==
[2022-07-25 13:21] LABS: Absolute Neutrophil Ct (ANC) 4.44 x10^3/uL (1.4-6.9); Basophil (Absolute #) 0.03 x10^3/uL (0-0.4); Eosinophil % 1.7 % (0.00-5.0); Eosinophil (Absolute #) 0.11 x10^3/uL (0-0.5); Hematocrit 42.2 % (42-50); Lymphocyte (Absolute #) 1.07 x10^3/uL (1.0-4.6); Lymphocytes % 16.9 % (24.0-44.0); Mean Cell Volume 86.8 fL (78-100); Mean Corpuscular Hemoglobin 28.8 pg (26-32); Mean Corpuscular Hgb Concent. 33.2 g/dL (32-36); Mean Platelet Volume 10.3 fL (7.5-11.0); Monocyte (Absolute #) 0.65 x10^3/uL (0.0-1.3); Monocytes % 10.2 % (0.0-12.0); Neutrophil % 69.9 % (36.0-66.0); Platelet Count 192 x10^3/uL (150-450); Red Blood Count 4.86 x10^6/uL (4.1-5.6); Red Cell Distribution Width 14.1 % (11.5-14.0); White Blood Count 6.4 x10^3/uL (4.0-10.5)
--- NOTE | 2022-07-25 13:30 | XRAY ---
Indication: Left facial numbness and burning one week. Multiple contiguous images obtained through the head without contrast. Comparison: June 04, 2021. Again age-appropriate global atrophy, minimal periventricular degenerative micro-ischemia bilaterally, and tiny remote lacunar infarct posterior left basal ganglia. No acute intracranial hemorrhage, abnormal extra-axial fluid collection, or mass effect. Fourth ventricle is midline without hydrocephalus. Bony calvarium intact. Paranasal sinuses and mastoid air cells are clear. Impression: Continued nonacute senile brain with remote lacunar infarct left basal ganglia.
[2022-07-25 13:31] VITALS: BP 118/70; O2SAT 98
--- NOTE | 2022-07-25 13:36 | XRAY ---
Indication: Left abdominal mass. Umbilical pain 2 days. Multiple contiguous axial images obtained through the abdomen and pelvis without contrast. Comparison: January 28, 2022 Lung bases clear. Heart not enlarged. Stomach is markedly distended with food/fluid. Stable small descending duodenal diverticulum. Again normal appendix. There is now mild diffuse scattered colonic fecal debris throughout. No free fluid/air. Again 21.6 cm fatty hepatomegaly, 15.3 cm splenomegaly with calcified granulomas, and tiny left adrenal adenoma. Remaining liver, gallbladder, pancreas, spleen, adrenal glands, kidneys, ureters, and bladder are unremarkable for noncontrast exam. Again minimal aortoiliac calcifications without AAA. Osseous structures intact again with lumbosacral junction degenerative disc disease. Stable small left iliopsoas intramuscular lipoma just anterior to hip joint. No ventral or inguinal hernias. Impression: 1. New diffuse fecal stasis. 2. Again chronic findings including duodenal diverticulum, fatty hepatomegaly, splenomegaly, left adrenal adenoma, lower lumbar degenerative disc disease, left iliopsoas intramuscular lipoma, and old granulomatous disease.
[2022-07-25 13:45] LABS: ALBUMIN 4.4 g/dL (3.5-5.0); ALKALINE PHOSPHATASE 46 U/L (38-126); AMYLASE 57 U/L (30-110); ANION GAP 11.7 MEQ/L (5-15); BLOOD UREA NITROGEN 16 mg/dL (9-20); CHLORIDE 100 mmol/L (98-107); Carbon Dioxide 28 mmol/L (22-30); Creatinine 1 0.79 mg/dL (0.66-1.25); EST GLOMERULAR FILTRATION RATE > 60.0 ML/MIN; Glucose 283 mg/dL (74-106); LIPASE 110 U/L (23-300); Potassium 4.8 mmol/L (3.5-5.1); SGOT/AST 25 U/L (17-59); SGPT/ALT 30 U/L (0-50); SODIUM 135 mmol/L (137-145); Total Protein 7.4 g/dL (6.3-8.2)
--- NOTE | 2022-07-25 13:48 | ERPHSYRPT ---
- History of Present Illness Historian: patient Exam Limitations: no limitations Patient Subjective Stated Complaint: Pt states "I went to the [facility] and they said to just come on down to the ed. I have a knot on my right upper abdomen and I am having burning and numbness on the left side of my face." Triage Nursing Assessment: Pt presented alert and oriented X 3, skin pwd. PT ambulates with an upright steady gait, able to speak in clear full sentenecs pt has equal slubber hand, no facial droop. PT in no apparent respiratory distress. Pt has small hard area noted to left upper abdomen with bruising noted over it. Physician History: 57 yo wm sent from clinic w mild L sided abdominal pain/palpable mass x 2-3 days. Pt also has had L facial numbness/burning x 6 days. He has no focal weakness or facial droop. Pain in abdomen is mild and described as stabbing. He has chronic constipation. N/V/diarrhea/melena/hematochezia/dysuria/hematuria/ fever/cough are all denied. Timing/Duration: other (Facial numbness x 6 days/Abdominal pain x 2-3 days) Quality: burning, stabbing Abdominal Pain Onset Location: periumbilical Pain Radiation: no radiation Severity of Pain-Max: moderate Severity of Pain-Current: mild Modifying Factors: Improves With: nothing Associated Symptoms: denies symptoms Previous symptoms: no prior history Allergies/Adverse Reactions: No Known Drug Allergies Allergy (Verified 07/11/22 17:14) Home Medications: Metformin HCl 1000 mg [Glucophage 1000 MG] 1,000 mg PO BID 05/17/15 [History] Nitroglycerin [Nitrostat] 0.4 mg SL Q5MIN PRN MR X 3 PRN 07/03/15 [History] Carvedilol [Coreg] 25 mg PO BID 05/07/17 [History] Insulin Aspart [Novolog] 100 unit SQ DAILY 09/12/19 [History] Gabapentin [Neurontin] 600 mg PO BID 07/24/20 [History] Hydrochlorothiazide 25 mg [hydroDIURIL 25 MG] 25 mg PO DAILY 07/24/20 [History] Lisinopril 5 mg [Zestril 5 MG] 30 mg PO HS 07/24/20 [History] Rosuvastatin Calcium [Crestor] 40 mg PO DAILY 10/18/20 [History] Buspirone HCl 5 mg [Buspar 5 mg] 5 mg PO BID 06/04/21 [History] HydrALAzine HCL 25 MG TAB [Apresoline 25 MG TABLET] 25 mg PO TID 06/04/21 [History] Linaclotide [Linzess] 290 mg PO DAILY 06/04/21 [History] Hx Tetanus, Diphtheria Vaccination/Date Given: Yes Hx Influenza Vaccination/Date Given: No Hx Pneumococcal Vaccination/Date Given: No Immunizations Up to Date: Yes Travel Risk - International Travel Have you traveled outside of the country in past 3 weeks: No - Coronavirus Screening Are you exhibiting any of the following symptoms?: No Close contact with a COVID-19 positive Pt in past 14-21 Days: No - Vaccine Status Have you 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 - Vaccination Dates Date of 2cond Vaccination (if applicable): 01/2021 - Review of Systems Constitutional: No Symptoms Eyes: No Symptoms Ears, Nose, & Throat: No Symptoms Respiratory: No Symptoms Cardiac: No Symptoms Abdominal/Gastrointestinal: No Symptoms, Abdominal Pain Genitourinary Symptoms: No Symptoms Musculoskeletal: No Symptoms Skin: No Symptoms Neurological: No Symptoms Psychological: No Symptoms Endocrine: No Symptoms Hematologic/Lymphatic: No Symptoms Immunological/Allergic: No Symptoms - Past Medical History Pertinent Past Medical History: Yes Neurological History: Peripheral Neuropathy, Seizures ENT History: No Pertinent History Cardiac History: Coronary Artery Disease, High Cholesterol, Hypertension, Peripheral Vascular Disease Respiratory History: COPD, Sleep Apnea, Other Endocrine Medical History: Diabetes Type II Musculoskeletal History: Fractures, Osteoarthritis GI Medical History: Esophageal Disorder, GERD History: No Pertinent History Psycho-Social History: Depression, Panic Disorder Male Reproductive Disorders: Prostate Problems Other Medical History: SEIZURES A CHILD BUT NOT AN ADULT. COVID IN 2019. VACCINATED. FX LEFT FOREARM AND ANKLE A CHILD. HX GERD, PANCREATITIS, LOWER EXTREMITY CELLULITIS. HX ARTHROSCOPIC SURGERY LEFT KNEE FOR "CLEANING IT OUT" 2020 (BEFORE ) - Past Surgical History Past Surgical History: Yes Neuro Surgical History: No Pertinent History Cardiac: Cardiac Catheterization Respiratory: No Pertinent History Gastrointestinal: No Pertinent History Genitourinary: No Pertinent History Musculoskeletal: No Pertinent History Male Surgical History: No Pertinent History Other Surgical History: uvula removed. carpal tunnel right hand - Social History Smoking Status: Former smoker Exposure to second hand smoke: No Alcohol Use: None Drug Use: none Patient Lives Alone: Yes Significant Family History: heart disease, diabetes, hypertension - Nursing Vital Signs Nursing Vital Signs: Initial Vital Signs Temperature 97.4 F 07/25/22 12:31 Pulse Rate 74 07/25/22 12:31 Respiratory Rate 20 07/25/22 12:31 Blood Pressure 171/92 07/25/22 12:31 O2 Sat by Pulse Oximetry 96 07/25/22 12:31 Pain Scale Pain Intensity 0 Hypertensive - Physical Exam General Appearance: no apparent distress Eye Exam: PERRL/EOMI, eyes nml inspection Ears, Nose, Throat Exam: normal ENT inspection, TMs normal, pharynx normal, moist mucous membranes Neck Exam: normal inspection, non-tender, supple, full range of motion, No meningismus, No mass, No Brudzinski, No Kernig's Respiratory Exam: normal breath sounds, lungs clear, airway intact Cardiovascular Exam: regular rate/rhythm, normal heart sounds, normal peripheral pulses, capillary refill <2 sec, No murmur Gastrointestinal/Abdomen Exam: soft, normal bowel sounds, tenderness (Morbidly obese abdomen/Most likely palpable L ventral hernia/mild L sided TTP at best/No guarding or rebound) Back Exam: normal inspection, normal range of motion, No CVA tenderness, No vertebral tenderness Extremity Exam: normal inspection, normal range of motion Neurologic Exam: alert, oriented x 3, cooperative, 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, normal mood/affect, nml cerebellar function, nml station & gait, sensation nml Skin Exam: normal color, warm, dry, No rash Lymphatic Exam: No adenopathy SpO2 Interpretation: normal SpO2: 98 O2 Delivery: Room Air - Course Nursing assessment & vital signs reviewed: Yes EKG Interpreted by Me: RATE (NSR/Rate 72/Normal QT-QTc/Flat Twaves lateral waves/Non-specific ST changes) - CT Exams Head CT Interpretation: Discussed w/radiologist (old L lacunar infarct) Abdomen/Pelvis CT Interpretation: Discussed w/radiologist (Fecal stasis/Chronc findings) Ordered Tests: Active Orders 24 hr Category Date Time Status ABDOMEN AND PELVIS W/0 CONTRAS [CT] Stat Exams 07/25/22 12:56 Completed HEAD WITHOUT CONTRAST [CT] Stat Exams 07/25/22 13:06 Completed AMYLASE Stat Lab 07/25/22 12:56 Completed CBC W DIFF Stat Lab 07/25/22 12:50 Completed CMP Stat Lab 07/25/22 12:56 Completed LIPASE Stat Lab 07/25/22 12:56 Completed TROPONIN Q4H Lab 07/25/22 13:00 Completed UA W/RFX CULTURE Stat Lab 07/25/22 Ordered Lab/Rad Data: Laboratory Result Diagrams 07/25/22 12:50 07/25/22 12:56 Laboratory Results 07/25/22 07/25/22 07/25/22 Range/Units 13:00 12:56 12:50 WBC 6.4 (4.0-10.5) x10^3/uL RBC 4.86 (4.1-5.6) x10^6/uL Hgb 14.0 (12.5-18.0) g/dL Hct 42.2 (42-50) % MCV 86.8 (78-100) fL MCH 28.8 (26-32) pg MCHC 33.2 (32-36) g/dL RDW 14.1 H (11.5-14.0) % Plt Count 192 (150-450) x10^3/uL MPV 10.3 (7.5-11.0) fL Gran % 69.9 H (36.0-66.0) % Immature Gran % (Auto) 0.8 H (0.00-0.4) % Nucleat RBC Rel Count 0.0 (0.00-0.1) % Eos # (Auto) 0.11 (0-0.5) x10^3/uL Immature Gran # (Auto) 0.05 H (0.00-0.03) x10^3u/L Absolute Lymphs (auto) 1.07 (1.0-4.6) x10^3/uL Absolute Monos (auto) 0.65 (0.0-1.3) x10^3/uL Absolute Nucleated RBC 0.00 (0.00-0.01) x10^3u/L Lymphocytes % 16.9 L (24.0-44.0) % Monocytes % 10.2 (0.0-12.0) % Eosinophils % 1.7 (0.00-5.0) % Basophils % 0.5 (0.0-0.4) % Absolute Granulocytes 4.44 (1.4-6.9) x10^3/uL Basophils # 0.03 (0-0.4) x10^3/uL Sodium 135 L (137-145) mmol/L Potassium 4.8 (3.5-5.1) mmol/L Chloride 100 (98-107) mmol/L Carbon Dioxide 28 (22-30) mmol/L Anion Gap 11.7 (5-15) MEQ/L BUN 16 (9-20) mg/dL Creatinine 0.79 (0.66-1.25) mg/dL Estimated GFR > 60.0 ML/MIN Glucose 283 H (74-106) mg/dL Calcium 9.0 (8.4-10.2) mg/dL Total Bilirubin 0.60 (0.2-1.3) mg/dL AST 25 (17-59) U/L ALT 30 (0-50) U/L Alkaline Phosphatase 46 (38-126) U/L Troponin I < 0.012 (0.000-0.034) ng/mL Serum Total Protein 7.4 (6.3-8.2) g/dL Albumin 4.4 (3.5-5.0) g/dL Amylase 57 (30-110) U/L Lipase 110 (23-300) U/L - Progress Progress: improved Counseled pt/family regarding: lab results, diagnosis, need for follow-up, rad results - Departure Departure Disposition: Home Clinical Impression: Constipation, Abdominal pain, Ventral hernia, Facial paresthesia Condition: Stable Critical Care Time: No Referrals: BROOKLYN FRITZ MD [Primary Care Provider] - Follow up/PCP as directed Instructions: Severe Abdominal Pain, Adult (DC) Additional Instructions: Follow up with your family MD Return to ER for increasing pain, temperature greater than 100.5, or focal weakness
[2022-07-25 14:18] VITALS: PULSE 69
== END 2022-07-25 14:37 | disposition home or self-care (01) ==
LOC: ED 12:25
DX: R10.30 Lower abdominal pain, unspecified (principal); R20.2 Paresthesia of skin; K59.00 Constipation, unspecified; K43.9 Ventral hernia without obstruction or gangrene; E11.9 Type 2 diabetes mellitus without complications; I10 Essential (primary) hypertension; Z79.899 Other long term (current) drug therapy
CPT/HCPCS: 36000; 36415; 70450; 74176; 80053; 82150; 83690; 84484; 85025; 99283

== ENCOUNTER 2022-12-18 10:24 | Observation (INO) | payer MEDICARE ==
[2022-12-18] MEDS ORDERED: NITRO-BID 2% UD PACKETS TOP ONE (10:38)
[2022-12-18] MEDS ORDERED: BABY ASPIRIN 81 MG CHEW PO ONE (10:38)
[2022-12-18] MEDS ORDERED: BABY ASPIRIN 81 MG CHEW ONE (10:43)
[2022-12-18] MEDS ORDERED: NITRO-BID 2% UD PACKETS ONE (10:44)
--- NOTE | 2022-12-18 10:45 | ERPHSYRPT ---
- History of Present Illness Time Seen by Provider: 12/18/22 10:46 Historian: patient Exam Limitations: no limitations Patient Subjective Stated Complaint: Pt states "I have had chest pain for the past week and I have red bloody stools." Triage Nursing Assessment: PT presented alert and oriented X 3, skin pwd. Pt ambulates with an upright steady gait, able to speak in clear full sentences pt in no apparent respiratory distress. Physician History: Patient is a 57-year-old male who with a significant past medical history which includes diabetes, hypertension, hyperlipidemia and family history of cardiovascular related deaths particularly in the age range of the sixth decade of life. Patient was referred to our ED from [facility] for evaluation of chest pain x1 week as well as bloody stools. Patient's last colonoscopy was approximately 3 years ago. Patient states all was well. Patient chest pain has been ongoing for 3 days. Patient reports that chest pain is progressively worse. Symptoms are moderate in intensity. No specific worsening or improving factors. Patient voices no other complaints or concerns at this time. Portions of this note were created with voice recognition technology. There may be grammatical, spelling, punctuation or sound alike errors Timing/Duration: day(s) (3 days) Activities at Onset: none Quality: aching Location: substernal Chest Pain Radiation: no radiation Severity of Pain-Max: moderate Severity of Pain-Current: mild Modifying Factors: Improves With: nothing Associated Symptoms: denies symptoms Prior Chest Pain/Cardiac Workup: no prior chest pain Nitro Today/Relief: no nitro taken today Aspirin Treatment Today: no aspirin today Allergies/Adverse Reactions: No Known Drug Allergies Allergy (Verified 07/11/22 17:14) Home Medications: Metformin HCl 1000 mg [Glucophage 1000 MG] 1,000 mg PO BID 05/17/15 [History] Nitroglycerin [Nitrostat] 0.4 mg SL Q5MIN PRN MR X 3 PRN 07/03/15 [History] Carvedilol [Coreg] 25 mg PO BID 05/07/17 [History] Gabapentin [Neurontin] 600 mg PO BID 07/24/20 [History] Hydrochlorothiazide 25 mg [hydroDIURIL 25 MG] 12.5 mg PO DAILY 07/24/20 [History] Lisinopril 5 mg [Zestril 5 MG] 20 mg PO BID 07/24/20 [History] Rosuvastatin Calcium [Crestor] 40 mg PO DAILY 07/24/20 [History] Buspirone HCl 5 mg [Buspar 5 mg] 5 mg PO BID 06/04/21 [History] HydrALAzine HCL 25 MG TAB [Apresoline 25 MG TABLET] 25 mg PO BID 06/04/21 [History] Bumetanide 1 mg [Bumex 1 mg] 1 mg PO DAILY 12/18/22 [History] Dapagliflozin Propanediol [Farxiga] 10 mg PO DAILY 12/18/22 [History] Fluoxetine HCl [Prozac] 10 mg PO DAILY 12/18/22 [History] Insulin Lispro [Humalog Kwikpen] 100 unit SQ UD 12/18/22 [History] Naproxen 500 mg [Naprosyn 500 MG] 500 mg PO BID 12/18/22 [History] PANTOPRAZOLE 40 mg Tablet [Protonix 40MG Tablet] 40 mg PO DAILY 12/18/22 [History] Potassium Chloride [Klor-Con 10] 10 meq PO BID 12/18/22 [History] Semaglutide [Ozempic] 2 mg SQ WEEKLY 12/18/22 [History] Testosterone Cypionate 200 mg IM UD 12/18/22 [History] Hx Tetanus, Diphtheria Vaccination/Date Given: Yes Hx Influenza Vaccination/Date Given: No Hx Pneumococcal Vaccination/Date Given: No Immunizations Up to Date: Yes Travel Risk - International Travel Have you traveled outside of the country in past 3 weeks: No - Coronavirus Screening Are you exhibiting any of the following symptoms?: No Close contact with a COVID-19 positive Pt in past 14-21 Days: No - Vaccine Status Have 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[employer]: [employer] - Vaccination Dates Date of 2cond Vaccination (if applicable): 01/2021 - Review of Systems Constitutional: No Symptoms, No Fever, No Chills Eyes: No Symptoms Ears, Nose, & Throat: No Symptoms Respiratory: No Symptoms, No Cough, No Dyspnea Cardiac: No Symptoms, No Chest Pain, No Edema, No Syncope Abdominal/Gastrointestinal: No Symptoms, No Abdominal Pain, No Nausea, No Vomiting, No Diarrhea Genitourinary Symptoms: No Symptoms, No Dysuria Musculoskeletal: No Symptoms, No Back Pain, No Neck Pain Skin: No Symptoms, No Rash Neurological: No Symptoms, No Dizziness, No Focal Weakness, No Sensory Changes Psychological: No Symptoms Endocrine: No Symptoms Hematologic/Lymphatic: No Symptoms Immunological/Allergic: No Symptoms All Other Systems: Reviewed and Negative - Past Medical History Pertinent Past Medical History: Yes Neurological History: Peripheral Neuropathy, Seizures ENT History: No Pertinent History Cardiac History: Coronary Artery Disease, High Cholesterol, Hypertension, Peripheral Vascular Disease Respiratory History: COPD, Sleep Apnea, Other Endocrine Medical History: Diabetes Type II Musculoskeletal History: Fractures, Osteoarthritis GI Medical History: Esophageal Disorder, GERD History: No Pertinent History Psycho-Social History: Depression, Panic Disorder Male Reproductive Disorders: Prostate Problems Other Medical History: SEIZURES A CHILD BUT NOT AN ADULT. COVID IN 2019. VACCINATED. FX LEFT FOREARM AND ANKLE A CHILD. HX GERD, PANCREATITIS, LOWER EXTREMITY CELLULITIS. HX ARTHROSCOPIC SURGERY LEFT KNEE FOR "CLEANING IT OUT" 2020 (BEFORE ) - Past Surgical History Past Surgical History: Yes Neuro Surgical History: No Pertinent History Cardiac: Cardiac Catheterization Respiratory: No Pertinent History Gastrointestinal: No Pertinent History Genitourinary: No Pertinent History Musculoskeletal: No Pertinent History Male Surgical History: No Pertinent History Other Surgical History: uvula removed. carpal tunnel right hand - Social History Smoking Status: Former smoker Exposure to second hand smoke: No Alcohol Use: None Drug Use: none Patient Lives Alone: Yes Significant Family History: heart disease, diabetes, hypertension - Nursing Vital Signs Nursing Vital Signs: Initial Vital Signs Temperature 97.4 F 12/18/22 10:25 Pulse Rate 64 12/18/22 10:25 Respiratory Rate 18 12/18/22 10:25 Blood Pressure 164/116 12/18/22 10:25 O2 Sat by Pulse Oximetry 98 12/18/22 10:25 Pain Scale Pain Intensity 2 - Physical Exam General Appearance: no apparent distress, alert Eye Exam: PERRL/EOMI, eyes nml inspection Ears, Nose, Throat Exam: normal ENT inspection, moist mucous membranes Neck Exam: normal inspection, non-tender, supple, full range of motion Respiratory Exam: normal breath sounds, lungs clear, No respiratory distress Cardiovascular Exam: regular rate/rhythm, normal heart sounds Gastrointestinal/Abdomen Exam: soft, No tenderness, No mass Back Exam: normal inspection, No CVA tenderness, No vertebral tenderness Extremity Exam: normal inspection, normal range of motion Neurologic Exam: alert, oriented x 3, cooperative, normal mood/affect, sensation nml, No motor deficits Skin Exam: normal color, warm, dry Lymphatic Exam: No adenopathy SpO2 Interpretation: normal SpO2: 98 O2 Delivery: Room Air - Course Nursing assessment & vital signs reviewed: Yes EKG Interpreted by Me: RATE, Sinus Rhythm, NORMAL AXIS, NORMAL INTERVALS - Radiology Exams Chest X-ray Interpretation: Teleradiologist Report (No acute finding. Lung granuloma) Ordered Tests: Active Orders 24 hr Category Date Time Status Vamp Creaser STAT Care 12/18/22 10:37 Active EKG-ER Only STAT Care 12/18/22 10:36 Active IV Insertion STAT Care 12/18/22 10:36 Active Pulse Oximetry (ED) STAT Care 12/18/22 10:36 Active CHEST 1 VIEW (PORTABLE) Stat Exams 12/18/22 10:37 Completed CBC W DIFF Stat Lab 12/18/22 10:20 Completed CMP Stat Lab 12/18/22 10:20 Completed TROPONIN Q4H Lab 12/18/22 10:20 Completed TROPONIN Q4H Lab 12/18/22 14:45 Ordered TROPONIN Q4H Lab 12/18/22 18:45 Ordered Medication Summary Discontinued Medications Generic Name Dose Route Start Last Admin Trade Name Freq PRN Reason Stop Dose Admin Aspirin 324 mg 12/18/22 10:38 12/18/22 10:46 Aspirin 81 Mg Tab.Chew PO 12/18/22 10:39 324 mg STAT ONE Administration Aspirin Confirm 12/18/22 10:43 Aspirin 81 Mg Tab.Chew Administered 12/18/22 10:44 Dose 324 mg .ROUTE .STK-MED ONE Nitroglycerin 1 gm 12/18/22 10:38 12/18/22 10:47 Nitroglycerin 1 Gm Packet TOP 12/18/22 10:39 1 gm STAT ONE Administration Nitroglycerin Confirm 12/18/22 10:44 Nitroglycerin 1 Gm Packet Administered 12/18/22 10:45 Dose 1 gm .ROUTE .STK-MED ONE Lab/Rad Data: Laboratory Result Diagrams 12/18/22 10:20 12/18/22 10:20 Laboratory Results 03/14/23 03/14/23 03/14/23 Range/Units 10:20 10:20 10:20 WBC (4.0-10.5) x10^3/uL RBC (4.1-5.6) x10^6/uL Hgb (12.5-18.0) g/dL Hct (42-50) % MCV (78-100) fL MCH (26-32) pg MCHC (32-36) g/dL RDW (11.5-14.0) % Plt Count (150-450) x10^3/uL MPV (7.5-11.0) fL Gran % (36.0-66.0) % Immature Gran % (Auto) (0.00-0.4) % Nucleat RBC Rel Count (0.00-0.1) % Eos # (Auto) (0-0.5) x10^3/uL Immature Gran # (Auto) (0.00-0.03) x10^3u/L Absolute Lymphs (auto) (1.0-4.6) x10^3/uL Absolute Monos (auto) (0.0-1.3) x10^3/uL Absolute Nucleated RBC (0.00-0.01) x10^3u/L Lymphocytes % (24.0-44.0) % Monocytes % (0.0-12.0) % Eosinophils % (0.00-5.0) % Basophils % (0.0-0.4) % Absolute Granulocytes (1.4-6.9) x10^3/uL Basophils # (0-0.4) x10^3/uL Sodium 140 (137-145) mmol/L Potassium 3.7 (3.5-5.1) mmol/L Chloride 99 (98-107) mmol/L Carbon Dioxide 31 H (22-30) mmol/L Anion Gap 13.0 (5-15) MEQ/L BUN 22 H (9-20) mg/dL Creatinine 0.95 (0.66-1.25) mg/dL Estimated GFR > 60.0 ML/MIN Glucose 78 (74-106) mg/dL Calcium 9.2 (8.4-10.2) mg/dL Total Bilirubin 0.40 (0.2-1.3) mg/dL AST 26 (17-59) U/L ALT 31 (0-50) U/L Alkaline Phosphatase 52 (38-126) U/L Troponin I 0.013 (0.000-0.034) ng/mL Serum Total Protein 7.3 (6.3-8.2) g/dL Albumin 4.3 (3.5-5.0) g/dL Influenza Type A Ag NEGATIVE (NEGATIVE) Influenza Type B Ag NEGATIVE (NEGATIVE) RSV (PCR) NEGATIVE (Negative) SARS-CoV-2 (PCR) NEGATIVE (NEGATIVE) 12/18/22 Range/Units 10:20 WBC 6.7 (4.0-10.5) x10^3/uL RBC 5.21 (4.1-5.6) x10^6/uL Hgb 15.1 (12.5-18.0) g/dL Hct 45.8 (42-50) % MCV 87.9 (78-100) fL MCH 29.0 (26-32) pg MCHC 33.0 (32-36) g/dL RDW 14.3 H (11.5-14.0) % Plt Count 196 (150-450) x10^3/uL MPV 9.6 (7.5-11.0) fL Gran % 71.3 H (36.0-66.0) % Immature Gran % (Auto) 0.4 (0.00-0.4) % Nucleat RBC Rel Count 0.0 (0.00-0.1) % Eos # (Auto) 0.10 (0-0.5) x10^3/uL Immature Gran # (Auto) 0.03 (0.00-0.03) x10^3u/L Absolute Lymphs (auto) 1.23 (1.0-4.6) x10^3/uL Absolute Monos (auto) 0.55 (0.0-1.3) x10^3/uL Absolute Nucleated RBC 0.00 (0.00-0.01) x10^3u/L Lymphocytes % 18.2 L (24.0-44.0) % Monocytes % 8.2 (0.0-12.0) % Eosinophils % 1.5 (0.00-5.0) % Basophils % 0.4 (0.0-0.4) % Absolute Granulocytes 4.80 (1.4-6.9) x10^3/uL Basophils # 0.03 (0-0.4) x10^3/uL Sodium (137-145) mmol/L Potassium (3.5-5.1) mmol/L Chloride (98-107) mmol/L Carbon Dioxide (22-30) mmol/L Anion Gap (5-15) MEQ/L BUN (9-20) mg/dL Creatinine (0.66-1.25) mg/dL Estimated GFR ML/MIN Glucose (74-106) mg/dL Calcium (8.4-10.2) mg/dL Total Bilirubin (0.2-1.3) mg/dL AST (17-59) U/L ALT (0-50) U/L Alkaline Phosphatase (38-126) U/L Troponin I (0.000-0.034) ng/mL Serum Total Protein (6.3-8.2) g/dL Albumin (3.5-5.0) g/dL Influenza Type A Ag (NEGATIVE) Influenza Type B Ag (NEGATIVE) RSV (PCR) (Negative) SARS-CoV-2 (PCR) (NEGATIVE) - Progress Progress: improved Air Movement: good Progress Note: Patient reassessed. He is well. Patient received aspirin and nitroglycerin. No active chest pain. In light of patient's cardiac risk factors and complaints patient will be admitted for cardiac rule out. Patient has a significant past medical history of diabetes, hypertension and hyperlipidemia. Patient's complaint of bloody stools has not been verified. No active management regarding this complaint. We will observe. Patient's last colonoscopy was 3 years ago. Patient's ED work-up includes EKG which shows T wave inversions at 1 and aVL. Chest x-ray shows no acute findings. CBC CMP no significant findings observed. COVID study negative. Initial troponin negative. Plan of care discussed with patient. He agrees to admission [facility] for further evaluation and treatment. Case discussed with Dr. Noriega who accepts admission to observation. Patient is a 57-year-old male with significant cardiovascular and family history presents to our ED as a referral from [facility]. Patient will be admitted for further evaluation and treatment. Patient's initial exam significant for chest pain. Otherwise physical exam normal. Patient admits to history of smoking but quit around 1995. Patient's complaint is acute. Chest pain ongoing for approximately 3 days. Vital stable. Working diagnosis is acute coronary syndrome. Complexity of problems addressed is moderate. Patient's problem is new with uncertain prognosis. No critical care time. Complexity of data reviewed and analyzed is moderate. Results of tests used for medical decision making. Patient served as an independent historian. EKG independently reviewed by Dr. Quick. Case results and management discussed with Dr. Noriega. Patient will be admitted under Dr. Noriega's care. Risk of complication and or risk of morbidity/mortality of patient management is high. Patient will be hospitalized for chest pain. Patient will be admitted to the telemetry floor. Plan of care decision was made based on shared decision-making model. Vital stable. Admit diagnosis is acute coronary syndrome/chest pain. Patient voices no other complaints or concerns at this time. Portions of this note were created with voice recognition technology. There may be grammatical, spelling, punctuation or sound alike errors 12/18/22 12:31 Blood Culture(s) Obtained: No Antibiotics given: No Discussed with : Jorge Will see patient in: hospital (observation) Counseled pt/family regarding: lab results, diagnosis, rad results - Departure Departure Disposition: Observation Clinical Impression: Chest pain, ACS (acute coronary syndrome), Abnormal EKG, Lung granuloma Condition: Stable Critical Care Time: No Referrals: BROOKLYN FRITZ MD [Primary Care Provider] - Follow up/PCP as directed
[2022-12-18 10:47] LABS: BASOPHIL % 0.4 % (0.0-0.4); Basophil (Absolute #) 0.03 x10^3/uL (0-0.4); Eosinophil % 1.5 % (0.00-5.0); Hematocrit 45.8 % (42-50); Hemoglobin 15.1 g/dL (12.5-18.0); IMMATURE GRAN # 0.03 x10^3u/L (0.00-0.03); IMMATURE GRAN % 0.4 % (0.00-0.4); Lymphocyte (Absolute #) 1.23 x10^3/uL (1.0-4.6); Lymphocytes % 18.2 % (24.0-44.0); Mean Cell Volume 87.9 fL (78-100); Mean Platelet Volume 9.6 fL (7.5-11.0); Monocyte (Absolute #) 0.55 x10^3/uL (0.0-1.3); Monocytes % 8.2 % (0.0-12.0); Neutrophil % 71.3 % (36.0-66.0); Platelet Count 196 x10^3/uL (150-450); Red Blood Count 5.21 x10^6/uL (4.1-5.6); Red Cell Distribution Width 14.3 % (11.5-14.0); White Blood Count 6.7 x10^3/uL (4.0-10.5)
--- NOTE | 2022-12-18 10:56 | XRAY ---
Indication: Chest pain. Comparison: January 28, 2022 Portable chest unchanged again demonstrating CT proven left hilar and left lung calcified granulomas. Remaining heart and lungs unremarkable. Bony thorax intact. No new/acute findings.
[2022-12-18 11:01] LABS: ALBUMIN 4.3 g/dL (3.5-5.0); ALKALINE PHOSPHATASE 52 U/L (38-126); BLOOD UREA NITROGEN 22 mg/dL (9-20); CHLORIDE 99 mmol/L (98-107); Calcium 9.2 mg/dL (8.4-10.2); Carbon Dioxide 31 mmol/L (22-30); Creatinine 1 0.95 mg/dL (0.66-1.25); EST GLOMERULAR FILTRATION RATE > 60.0 ML/MIN; Glucose 78 mg/dL (74-106); Potassium 3.7 mmol/L (3.5-5.1); SGOT/AST 26 U/L (17-59); SGPT/ALT 31 U/L (0-50); SODIUM 140 mmol/L (137-145); Total Protein 7.3 g/dL (6.3-8.2)
[2022-12-18 11:24] LABS: INFLUENZA A NEGATIVE (NEGATIVE); INFLUENZA B NEGATIVE (NEGATIVE); RESPIRATORY SYNCTIAL VIRUS NEGATIVE (Negative); SARS-CoV-2 Xpert Express NEGATIVE (NEGATIVE)
[2022-12-18] MEDS ORDERED: MILK OF MAGNESIA 30 ML PO PRN (13:06)
[2022-12-18] MEDS ORDERED: TYLENOL 325 MG PO PRN (13:06)
[2022-12-18] MEDS ORDERED: Zofran 4 MG/2 ML VIAL IV PRN (13:06)
[2022-12-18] MEDS ORDERED: Senokot-S Tablet PO PRN (13:06)
[2022-12-18] MEDS ORDERED: MAALOX ES 30 ML UNIT DOSE PO PRN (13:06)
[2022-12-18] MEDS ORDERED: Nitrostat 0.4 MG Tablet SL PRN (14:42)
[2022-12-18] MEDS ORDERED: NON-FORMULARY ITEM (Insulin Lispro [Humalog Kwikpen U-100] 100 UNIT/ML Insuln.Pen) SQ SCH (14:45)
[2022-12-18 14:53] LABS: Hematocrit 43.2 % (42-50); Hemoglobin 14.2 g/dL (12.5-18.0); Mean Cell Volume 89.3 fL (78-100); Mean Corpuscular Hemoglobin 29.3 pg (26-32); Mean Corpuscular Hgb Concent. 32.9 g/dL (32-36); Mean Platelet Volume 9.1 fL (7.5-11.0); Platelet Count 170 x10^3/uL (150-450); Red Blood Count 4.84 x10^6/uL (4.1-5.6); Red Cell Distribution Width 14.3 % (11.5-14.0); White Blood Count 6.4 x10^3/uL (4.0-10.5)
[2022-12-18] MEDS ORDERED: MEDICATION INTERVENTION MC SCH (15:15)
[2022-12-18 15:34] LABS: ANION GAP 11.1 MEQ/L (5-15); BLOOD UREA NITROGEN 22 mg/dL (9-20); CHLORIDE 98 mmol/L (98-107); Calcium 8.9 mg/dL (8.4-10.2); Carbon Dioxide 34 mmol/L (22-30); Creatinine 1 0.99 mg/dL (0.66-1.25); EST GLOMERULAR FILTRATION RATE > 60.0 ML/MIN; Glucose 81 mg/dL (74-106); PREALBUMIN 29.84 mg/dL (17.6-36.0); Potassium 3.9 mmol/L (3.5-5.1); SODIUM 139 mmol/L (137-145)
[2022-12-18] MEDS ORDERED: HUMALOG SQ PRN ×2 (16:00→17:58)
[2022-12-18] MEDS ORDERED: NON-FORMULARY ITEM (Carvedilol [Coreg] 25 MG Tablet) PO SCH (22:00)
[2022-12-18] MEDS ORDERED: BUSPAR 5 MG PO SCH (22:00)
[2022-12-18] MEDS ORDERED: Klor Con PO SCH (22:00)
[2022-12-18] MEDS ORDERED: Zestril 5 MG PO SCH (22:00)
[2022-12-18] MEDS ORDERED: COREG 12.5 MG PO SCH (22:00)
[2022-12-18] MEDS ORDERED: NEURONTIN PO SCH (22:00)
[2022-12-18] MEDS ORDERED: Apresoline 25 MG TABLET PO SCH (22:00)
[2022-12-18] MEDS ORDERED: NON-FORMULARY ITEM (Potassium Chloride [Klor-Con 10] 10 MEQ Tablet.Er) PO SCH (22:00)
[2022-12-18] MEDS ORDERED: Zestril 20 MG PO SCH (22:00)
[2022-12-19 06:06] LABS: Risk Ratio 5.3
[2022-12-19 07:23] VITALS: O2SAT 93
--- NOTE | 2022-12-19 09:20 | PCM.SSS ---
History of Present Illness - Chief Complaint Chief Complaint: ACS, Chest pain History of Present Illness: is a 57 year old male who came to the ER yesterday, states he woke up with substernal chest pain, it was sharp in nature and worse with a cough or deep breath. no cough, no fever, no nausea/vomiting or diarrhea. He is established with Dr Guerrero and follows with him on a regular interval every 3 months. - Review of Systems Constitutional: No Fever, No Chills Cardiac: Chest Pain Abdominal/Gastrointestinal: No Abdominal Pain, No Nausea, No Vomiting, No Diarrhea Genitourinary Symptoms: No Dysuria Skin: No Rash All Other Systems: Reviewed and Negative Medications & Allergies Home Medications: Home Medication List Metformin HCl 1000 mg [Glucophage 1000 MG] 1,000 mg PO BID 05/17/15 [History Confirmed 12/18/22] Nitroglycerin [Nitrostat] 0.4 mg SL Q5MIN PRN MR X 3 PRN 07/03/15 [History Confirmed 12/18/22] Carvedilol [Coreg] 25 mg PO BID 05/07/17 [History Confirmed 12/18/22] Gabapentin [Neurontin] 600 mg PO BID 07/24/20 [History Confirmed 12/18/22] Hydrochlorothiazide 25 mg [hydroDIURIL 25 MG] 12.5 mg PO DAILY 07/24/20 [History Confirmed 12/18/22] Lisinopril 5 mg [Zestril 5 MG] 20 mg PO BID 07/24/20 [History Confirmed 12/18/22] Rosuvastatin Calcium [Crestor] 40 mg PO DAILY 07/24/20 [History Confirmed 12/18/22] Buspirone HCl 5 mg [Buspar 5 mg] 5 mg PO BID 06/04/21 [History Confirmed 12/18/22] HydrALAzine HCL 25 MG TAB [Apresoline 25 MG TABLET] 25 mg PO BID 06/04/21 [History Confirmed 12/18/22] Flash Glucose Scanning Lowgap [Contests4Causes Shlomo 14 Day Lowgap] 1 each MC DAILY #1 kit 12/12/21 [Rx Confirmed 12/18/22] Bumetanide 1 mg [Bumex 1 mg] 1 mg PO DAILY 12/18/22 [History Confirmed 12/18/22] Dapagliflozin Propanediol [Farxiga] 10 mg PO DAILY 12/18/22 [History Confirmed 12/18/22] Fluoxetine HCl [Prozac] 10 mg PO DAILY 12/18/22 [History Confirmed 12/18/22] Insulin Lispro [Humalog Kwikpen U-100] 100 unit SQ UD 12/18/22 [History Confirmed 12/18/22] Naproxen 500 mg [Naprosyn 500 MG] 500 mg PO BID 12/18/22 [History Confi rmed 12/18/22] PANTOPRAZOLE 40 mg Tablet [Protonix 40MG Tablet] 40 mg PO DAILY 12/18/22 [History Confirmed 12/18/22] Potassium Chloride [Klor-Con 10] 10 meq PO BID 12/18/22 [History Confirmed ] Semaglutide [Ozempic] 2 mg SQ WEEKLY 12/18/22 [History Confirmed 12/18/22] Testosterone Cypionate 200 mg IM UD 12/18/22 [History Confirmed 12/18/22] Allergies/Adverse Reactions: Allergies Allergy/AdvReac Type Severity Reaction Status Date / Time No Known Drug Allergies Allergy Verified 07/11/22 17:14 - Past Medical History Past Medical History: Yes Neurological History: Peripheral Neuropathy, Seizures ENT History: No Pertinent History Cardiac History: Coronary Artery Disease, High Cholesterol, Hypertension, Peripheral Vascular Disease Respiratory History: COPD, Sleep Apnea, Other Endocrine Medical History: Diabetes Type II Musculoskelatal History: Fractures, Osteoarthritis GI Medical History: Esophageal Disorder, GERD History: No Pertinent History Pyscho-Social History: Depression, Panic Disorder Male Reproductive Disorders: Prostate Problems Comment: SEIZURES A CHILD BUT NOT AN ADULT. COVID IN 2019. VACCINATED. FX LEFT FOREARM AND ANKLE A CHILD. HX GERD, PANCREATITIS, LOWER EXTREMITY CELLULITIS. HX ARTHROSCOPIC SURGERY LEFT KNEE FOR "CLEANING IT OUT" 2020 (BEFORE ) - Past Surgical History Past Surgical History: Yes Neuro Surgical History: No Pertinent History Cardiac History: Cardiac Catheterization Respiratory Surgery: No Pertinent History GI Surgical History: No Pertinent History Genitourinary Surgical Hx: No Pertinent History Musculskeletal Surgical Hx: No Pertinent History Male Surgical History: No Pertinent History Other Surgical History: uvula removed. carpal tunnel right hand - Social History Smoking Status: Former smoker Exposure to second hand smoke: No Alcohol: None Drug Use: none Significant Family History: heart disease, diabetes, hypertension - Physical Exam Vital Signs: Vital Signs - 24 hr Temp Pulse Pulse Resp BP Pulse Ox 12/19/22 07:22 97.7 F 55 L 18 186/84 93 L 12/19/22 04:00 97.2 F 64 20 143/66 96 12/18/22 23:27 98.2 F 73 20 158/89 96 12/18/22 20:00 97.6 F 73 20 170/82 97 12/18/22 16:00 97.7 F 68 17 153/64 93 L 12/18/22 13:11 97 F 65 18 164/75 94 L 12/18/22 12:41 98 12/18/22 12:28 64 20 169/81 98 12/18/22 11:24 65 12 173/85 95 12/18/22 10:42 96 12/18/22 10:25 97.4 F 64 64 18 164/116 98 General Appearance: no apparent distress, alert Neurologic Exam: alert, oriented x 3, cooperative, normal mood/affect, nml cerebellar function, nml station & gait, sensation nml, No motor deficits Eye Exam: PERRL/EOMI, eyes nml inspection Respiratory Exam: normal breath sounds, lungs clear, No respiratory distress Cardiovascular Exam: regular rate/rhythm, normal heart sounds, normal peripheral pulses Gastrointestinal/Abdomen Exam: soft, normal bowel sounds, No tenderness, No mass Extremity Exam: normal inspection, normal range of motion, pelvis stable Results - Labs Lab/Micro Results: Lab Results-Last 24 Hours 12/18/22 12/18/22 12/18/22 Range/Units 10:20 10:20 10:20 WBC 6.7 (4.0-10.5) x10^3/uL RBC 5.21 (4.1-5.6) x10^6/uL Hgb 15.1 (12.5-18.0) g/dL Hct 45.8 (42-50) % MCV 87.9 (78-100) fL MCH 29.0 (26-32) pg MCHC 33.0 (32-36) g/dL RDW 14.3 H (11.5-14.0) % Plt Count 196 (150-450) x10^3/uL MPV 9.6 (7.5-11.0) fL Gran % 71.3 H (36.0-66.0) % Immature Gran % (Auto) 0.4 (0.00-0.4) % Nucleat RBC Rel Count 0.0 (0.00-0.1) % Eos # (Auto) 0.10 (0-0.5) x10^3/uL Immature Gran # (Auto) 0.03 (0.00-0.03) x10^3u/L Absolute Lymphs (auto) 1.23 (1.0-4.6) x10^3/uL Absolute Monos (auto) 0.55 (0.0-1.3) x10^3/uL Absolute Nucleated RBC 0.00 (0.00-0.01) x10^3u/L Lymphocytes % 18.2 L (24.0-44.0) % Monocytes % 8.2 (0.0-12.0) % Eosinophils % 1.5 (0.00-5.0) % Basophils % 0.4 (0.0-0.4) % Absolute Granulocytes 4.80 (1.4-6.9) x10^3/uL Basophils # 0.03 (0-0.4) x10^3/uL Sodium 140 (137-145) mmol/L Potassium 3.7 (3.5-5.1) mmol/L Chloride 99 (98-107) mmol/L Carbon Dioxide 31 H (22-30) mmol/L Anion Gap 13.0 (5-15) MEQ/L BUN 22 H (9-20) mg/dL Creatinine 0.95 (0.66-1.25) mg/dL Estimated GFR > 60.0 ML/MIN Glucose 78 (74-106) mg/dL POC Glucometer (74 to 106) mg/dL Calcium 9.2 (8.4-10.2) mg/dL Total Bilirubin 0.40 (0.2-1.3) mg/dL AST 26 (17-59) U/L ALT 31 (0-50) U/L Alkaline Phosphatase 52 (38-126) U/L Troponin I 0.013 (0.000-0.034) ng/mL Serum Total Protein 7.3 (6.3-8.2) g/dL Albumin 4.3 (3.5-5.0) g/dL Prealbumin (17.6-36.0) mg/dL Triglycerides (30-150) mg/dL Cholesterol (50-200) mg/dL LDL Cholesterol (30-100) mg/dL HDL Cholesterol (40-60) mg/dL Heart Disease Risk Ratio Influenza Type A Ag (NEGATIVE) Influenza Type B Ag (NEGATIVE) RSV (PCR) (Negative) SARS-CoV-2 (PCR) (NEGATIVE) 12/18/22 12/18/22 12/18/22 Range/Units 10:20 13:10 14:52 WBC (4.0-10.5) x10^3/uL RBC (4.1-5.6) x10^6/uL Hgb (12.5-18.0) g/dL Hct (42-50) % MCV (78-100) fL MCH (26-32) pg MCHC (32-36) g/dL RDW (11.5-14.0) % Plt Count (150-450) x10^3/uL MPV (7.5-11.0) fL Gran % (36.0-66.0) % Immature Gran % (Auto) (0.00-0.4) % Nucleat RBC Rel Count (0.00-0.1) % Eos # (Auto) (0-0.5) x10^3/uL Immature Gran # (Auto) (0.00-0.03) x10^3u/L Absolute Lymphs (auto) (1.0-4.6) x10^3/uL Absolute Monos (auto) (0.0-1.3) x10^3/uL Absolute Nucleated RBC (0.00-0.01) x10^3u/L Lymphocytes % (24.0-44.0) % Monocytes % (0.0-12.0) % Eosinophils % (0.00-5.0) % Basophils % (0.0-0.4) % Absolute Granulocytes (1.4-6.9) x10^3/uL Basophils # (0-0.4) x10^3/uL Sodium (137-145) mmol/L Potassium (3.5-5.1) mmol/L Chloride (98-107) mmol/L Carbon Dioxide (22-30) mmol/L Anion Gap (5-15) MEQ/L BUN (9-20) mg/dL Creatinine (0.66-1.25) mg/dL Estimated GFR ML/MIN Glucose (74-106) mg/dL POC Glucometer 112 H (74 to 106) mg/dL Calcium (8.4-10.2) mg/dL Total Bilirubin (0.2-1.3) mg/dL AST (17-59) U/L ALT (0-50) U/L Alkaline Phosphatase (38-126) U/L Troponin I < 0.012 (0.000-0.034) ng/mL Serum Total Protein (6.3-8.2) g/dL Albumin (3.5-5.0) g/dL Prealbumin (17.6-36.0) mg/dL Triglycerides (30-150) mg/dL Cholesterol (50-200) mg/dL LDL Cholesterol (30-100) mg/dL HDL Cholesterol (40-60) mg/dL Heart Disease Risk Ratio Influenza Type A Ag NEGATIVE (NEGATIVE) Influenza Type B Ag NEGATIVE (NEGATIVE) RSV (PCR) NEGATIVE (Negative) SARS-CoV-2 (PCR) NEGATIVE (NEGATIVE) 12/18/22 12/18/22 12/18/22 Range/Units 14:52 14:52 15:54 WBC 6.4 (4.0-10.5) x10^3/uL RBC 4.84 (4.1-5.6) x10^6/uL Hgb 14.2 (12.5-18.0) g/dL Hct 43.2 (42-50) % MCV 89.3 (78-100) fL MCH 29.3 (26-32) pg MCHC 32.9 (32-36) g/dL RDW 14.3 H (11.5-14.0) % Plt Count 170 (150-450) x10^3/uL MPV 9.1 (7.5-11.0) fL Gran % (36.0-66.0) % Immature Gran % (Auto) (0.00-0.4) % Nucleat RBC Rel Count (0.00-0.1) % Eos # (Auto) (0-0.5) x10^3/uL Immature Gran # (Auto) (0.00-0.03) x10^3u/L Absolute Lymphs (auto) (1.0-4.6) x10^3/uL Absolute Monos (auto) (0.0-1.3) x10^3/uL Absolute Nucleated RBC (0.00-0.01) x10^3u/L Lymphocytes % (24.0-44.0) % Monocytes % (0.0-12.0) % Eosinophils % (0.00-5.0) % Basophils % (0.0-0.4) % Absolute Granulocytes (1.4-6.9) x10^3/uL Basophils # (0-0.4) x10^3/uL Sodium 139 (137-145) mmol/L Potassium 3.9 (3.5-5.1) mmol/L Chloride 98 (98-107) mmol/L Carbon Dioxide 34 H (22-30) mmol/L Anion Gap 11.1 (5-15) MEQ/L BUN 22 H (9-20) mg/dL Creatinine 0.99 (0.66-1.25) mg/dL Estimated GFR > 60.0 ML/MIN Glucose 81 (74-106) mg/dL POC Glucometer 152 H (74 to 106) mg/dL Calcium 8.9 (8.4-10.2) mg/dL Total Bilirubin (0.2-1.3) mg/dL AST (17-59) U/L ALT (0-50) U/L Alkaline Phosphatase (38-126) U/L Troponin I (0.000-0.034) ng/mL Serum Total Protein (6.3-8.2) g/dL Albumin (3.5-5.0) g/dL Prealbumin 29.84 (17.6-36.0) mg/dL Triglycerides (30-150) mg/dL Cholesterol (50-200) mg/dL LDL Cholesterol (30-100) mg/dL HDL Cholesterol (40-60) mg/dL Heart Disease Risk Ratio Influenza Type A Ag (NEGATIVE) Influenza Type B Ag (NEGATIVE) RSV (PCR) (Negative) SARS-CoV-2 (PCR) (NEGATIVE) 03/14/23 03/14/23 03/15/23 Range/Units 17:28 18:55 05:03 WBC (4.0-10.5) x10^3/uL RBC (4.1-5.6) x10^6/uL Hgb (12.5-18.0) g/dL Hct (42-50) % MCV (78-100) fL MCH (26-32) pg MCHC (32-36) g/dL RDW (11.5-14.0) % Plt Count (150-450) x10^3/uL MPV (7.5-11.0) fL Gran % (36.0-66.0) % Immature Gran % (Auto) (0.00-0.4) % Nucleat RBC Rel Count (0.00-0.1) % Eos # (Auto) (0-0.5) x10^3/uL Immature Gran # (Auto) (0.00-0.03) x10^3u/L Absolute Lymphs (auto) (1.0-4.6) x10^3/uL Absolute Monos (auto) (0.0-1.3) x10^3/uL Absolute Nucleated RBC (0.00-0.01) x10^3u/L Lymphocytes % (24.0-44.0) % Monocytes % (0.0-12.0) % Eosinophils % (0.00-5.0) % Basophils % (0.0-0.4) % Absolute Granulocytes (1.4-6.9) x10^3/uL Basophils # (0-0.4) x10^3/uL Sodium (137-145) mmol/L Potassium (3.5-5.1) mmol/L Chloride (98-107) mmol/L Carbon Dioxide (22-30) mmol/L Anion Gap (5-15) MEQ/L BUN (9-20) mg/dL Creatinine (0.66-1.25) mg/dL Estimated GFR ML/MIN Glucose (74-106) mg/dL POC Glucometer 173 H (74 to 106) mg/dL Calcium (8.4-10.2) mg/dL Total Bilirubin (0.2-1.3) mg/dL AST (17-59) U/L ALT (0-50) U/L Alkaline Phosphatase (38-126) U/L Troponin I < 0.012 (0.000-0.034) ng/mL Serum Total Protein (6.3-8.2) g/dL Albumin (3.5-5.0) g/dL Prealbumin (17.6-36.0) mg/dL Triglycerides 224 H (30-150) mg/dL Cholesterol 168 (50-200) mg/dL LDL Cholesterol 100 (30-100) mg/dL HDL Cholesterol 32 L (40-60) mg/dL Heart Disease Risk Ratio 5.3 Influenza Type A Ag (NEGATIVE) Influenza Type B Ag (NEGATIVE) RSV (PCR) (Negative) SARS-CoV-2 (PCR) (NEGATIVE) Accuchecks Date 12/19/22 Date 12/18/22 Date 12/18/22 Time 21:30 Time 16:20 - Radiology Impressions Radiology Exams & Impressions: Radiology Procedures Category Date Time Status CHEST 1 VIEW (PORTABLE) Stat Exams 12/18/22 10:37 Completed - Other Procedures and Tests Respiratory Therapy 12/20/22 05:00 EKG ONCE 12/21/22 05:00 EKG ONCE Assessment/Plan (1) Chest pain Current Visit: Yes Status: Acute Assessment & Plan: [place] ruled out, history consistent with noncardiac chest pain. no changes at this time, will discharge as he is pain free today and have him f/u with Dr Guerrero as an outpatient. Code(s): R07.9 - CHEST PAIN, UNSPECIFIED (2) Diabetes Current Visit: No Status: Acute Code(s): E11.9 - TYPE 2 DIABETES MELLITUS WITHOUT COMPLICATIONS Hospital Summary - Vitals & Intake/Output Vital Signs: Vital Signs Temperature 97.7 F 12/19/22 07:22 Pulse Rate 55 L 12/19/22 07:22 Respiratory Rate 18 12/19/22 07:22 Blood Pressure 186/84 12/19/22 07:22 O2 Sat by Pulse Oximetry 93 L 12/19/22 07:22 Intake & Output: Intake & Output 12/16/22 12/17/22 12/18/22 12/19/22 11:59 11:59 11:59 11:59 Intake Total 1720 Balance 1720 Weight 133.2 kg 130.5 kg - Lab Result Diagrams: 12/18/22 14:52 12/18/22 14:52 Lab Results-Last 24 Hrs: Lab Results-Last 24 Hours 12/18/22 12/18/22 12/18/22 Range/Units 10:20 10:20 10:20 WBC 6.7 (4.0-10.5) x10^3/uL RBC 5.21 (4.1-5.6) x10^6/uL Hgb 15.1 (12.5-18.0) g/dL Hct 45.8 (42-50) % MCV 87.9 (78-100) fL MCH 29.0 (26-32) pg MCHC 33.0 (32-36) g/dL RDW 14.3 H (11.5-14.0) % Plt Count 196 (150-450) x10^3/uL MPV 9.6 (7.5-11.0) fL Gran % 71.3 H (36.0-66.0) % Immature Gran % (Auto) 0.4 (0.00-0.4) % Nucleat RBC Rel Count 0.0 (0.00-0.1) % Eos # (Auto) 0.10 (0-0.5) x10^3/uL Immature Gran # (Auto) 0.03 (0.00-0.03) x10^3u/L Absolute Lymphs (auto) 1.23 (1.0-4.6) x10^3/uL Absolute Monos (auto) 0.55 (0.0-1.3) x10^3/uL Absolute Nucleated RBC 0.00 (0.00-0.01) x10^3u/L Lymphocytes % 18.2 L (24.0-44.0) % Monocytes % 8.2 (0.0-12.0) % Eosinophils % 1.5 (0.00-5.0) % Basophils % 0.4 (0.0-0.4) % Absolute Granulocytes 4.80 (1.4-6.9) x10^3/uL Basophils # 0.03 (0-0.4) x10^3/uL Sodium 140 (137-145) mmol/L Potassium 3.7 (3.5-5.1) mmol/L Chloride 99 (98-107) mmol/L Carbon Dioxide 31 H (22-30) mmol/L Anion Gap 13.0 (5-15) MEQ/L BUN 22 H (9-20) mg/dL Creatinine 0.95 (0.66-1.25) mg/dL Estimated GFR > 60.0 ML/MIN Glucose 78 (74-106) mg/dL POC Glucometer (74 to 106) mg/dL Calcium 9.2 (8.4-10.2) mg/dL Total Bilirubin 0.40 (0.2-1.3) mg/dL AST 26 (17-59) U/L ALT 31 (0-50) U/L Alkaline Phosphatase 52 (38-126) U/L Troponin I 0.013 (0.000-0.034) ng/mL Serum Total Protein 7.3 (6.3-8.2) g/dL Albumin 4.3 (3.5-5.0) g/dL Prealbumin (17.6-36.0) mg/dL Triglycerides (30-150) mg/dL Cholesterol (50-200) mg/dL LDL Cholesterol (30-100) mg/dL HDL Cholesterol (40-60) mg/dL Heart Disease Risk Ratio Influenza Type A Ag (NEGATIVE) Influenza Type B Ag (NEGATIVE) RSV (PCR) (Negative) SARS-CoV-2 (PCR) (NEGATIVE) 12/18/22 12/18/22 12/18/22 Range/Units 10:20 13:10 14:52 WBC (4.0-10.5) x10^3/uL RBC (4.1-5.6) x10^6/uL Hgb (12.5-18.0) g/dL Hct (42-50) % MCV (78-100) fL MCH (26-32) pg MCHC (32-36) g/dL RDW (11.5-14.0) % Plt Count (150-450) x10^3/uL MPV (7.5-11.0) fL Gran % (36.0-66.0) % Immature Gran % (Auto) (0.00-0.4) % Nucleat RBC Rel Count (0.00-0.1) % Eos # (Auto) (0-0.5) x10^3/uL Immature Gran # (Auto) (0.00-0.03) x10^3u/L Absolute Lymphs (auto) (1.0-4.6) x10^3/uL Absolute Monos (auto) (0.0-1.3) x10^3/uL Absolute Nucleated RBC (0.00-0.01) x10^3u/L Lymphocytes % (24.0-44.0) % Monocytes % (0.0-12.0) % Eosinophils % (0.00-5.0) % Basophils % (0.0-0.4) % Absolute Granulocytes (1.4-6.9) x10^3/uL Basophils # (0-0.4) x10^3/uL Sodium (137-145) mmol/L Potassium (3.5-5.1) mmol/L Chloride (98-107) mmol/L Carbon Dioxide (22-30) mmol/L Anion Gap (5-15) MEQ/L BUN (9-20) mg/dL Creatinine (0.66-1.25) mg/dL Estimated GFR ML/MIN Glucose (74-106) mg/dL POC Glucometer 112 H (74 to 106) mg/dL Calcium (8.4-10.2) mg/dL Total Bilirubin (0.2-1.3) mg/dL AST (17-59) U/L ALT (0-50) U/L Alkaline Phosphatase (38-126) U/L Troponin I < 0.012 (0.000-0.034) ng/mL Serum Total Protein (6.3-8.2) g/dL Albumin (3.5-5.0) g/dL Prealbumin (17.6-36.0) mg/dL Triglycerides (30-150) mg/dL Cholesterol (50-200) mg/dL LDL Cholesterol (30-100) mg/dL HDL Cholesterol (40-60) mg/dL Heart Disease Risk Ratio Influenza Type A Ag NEGATIVE (NEGATIVE) Influenza Type B Ag NEGATIVE (NEGATIVE) RSV (PCR) NEGATIVE (Negative) SARS-CoV-2 (PCR) NEGATIVE (NEGATIVE) 12/18/22 12/18/22 12/18/22 Range/Units 14:52 14:52 15:54 WBC 6.4 (4.0-10.5) x10^3/uL RBC 4.84 (4.1-5.6) x10^6/uL Hgb 14.2 (12.5-18.0) g/dL Hct 43.2 (42-50) % MCV 89.3 (78-100) fL MCH 29.3 (26-32) pg MCHC 32.9 (32-36) g/dL RDW 14.3 H (11.5-14.0) % Plt Count 170 (150-450) x10^3/uL MPV 9.1 (7.5-11.0) fL Gran % (36.0-66.0) % Immature Gran % (Auto) (0.00-0.4) % Nucleat RBC Rel Count (0.00-0.1) % Eos # (Auto) (0-0.5) x10^3/uL Immature Gran # (Auto) (0.00-0.03) x10^3u/L Absolute Lymphs (auto) (1.0-4.6) x10^3/uL Absolute Monos (auto) (0.0-1.3) x10^3/uL Absolute Nucleated RBC (0.00-0.01) x10^3u/L Lymphocytes % (24.0-44.0) % Monocytes % (0.0-12.0) % Eosinophils % (0.00-5.0) % Basophils % (0.0-0.4) % Absolute Granulocytes (1.4-6.9) x10^3/uL Basophils # (0-0.4) x10^3/uL Sodium 139 (137-145) mmol/L Potassium 3.9 (3.5-5.1) mmol/L Chloride 98 (98-107) mmol/L Carbon Dioxide 34 H (22-30) mmol/L Anion Gap 11.1 (5-15) MEQ/L BUN 22 H (9-20) mg/dL Creatinine 0.99 (0.66-1.25) mg/dL Estimated GFR > 60.0 ML/MIN Glucose 81 (74-106) mg/dL POC Glucometer 152 H (74 to 106) mg/dL Calcium 8.9 (8.4-10.2) mg/dL Total Bilirubin (0.2-1.3) mg/dL AST (17-59) U/L ALT (0-50) U/L Alkaline Phosphatase (38-126) U/L Troponin I (0.000-0.034) ng/mL Serum Total Protein (6.3-8.2) g/dL Albumin (3.5-5.0) g/dL Prealbumin 29.84 (17.6-36.0) mg/dL Triglycerides (30-150) mg/dL Cholesterol (50-200) mg/dL LDL Cholesterol (30-100) mg/dL HDL Cholesterol (40-60) mg/dL Heart Disease Risk Ratio Influenza Type A Ag (NEGATIVE) Influenza Type B Ag (NEGATIVE) RSV (PCR) (Negative) SARS-CoV-2 (PCR) (NEGATIVE) 12/18/22 12/18/22 12/19/22 Range/Units 17:28 18:55 05:03 WBC (4.0-10.5) x10^3/uL RBC (4.1-5.6) x10^6/uL Hgb (12.5-18.0) g/dL Hct (42-50) % MCV (78-100) fL MCH (26-32) pg MCHC (32-36) g/dL RDW (11.5-14.0) % Plt Count (150-450) x10^3/uL MPV (7.5-11.0) fL Gran % (36.0-66.0) % Immature Gran % (Auto) (0.00-0.4) % Nucleat RBC Rel Count (0.00-0.1) % Eos # (Auto) (0-0.5) x10^3/uL Immature Gran # (Auto) (0.00-0.03) x10^3u/L Absolute Lymphs (auto) (1.0-4.6) x10^3/uL Absolute Monos (auto) (0.0-1.3) x10^3/uL Absolute Nucleated RBC (0.00-0.01) x10^3u/L Lymphocytes % (24.0-44.0) % Monocytes % (0.0-12.0) % Eosinophils % (0.00-5.0) % Basophils % (0.0-0.4) % Absolute Granulocytes (1.4-6.9) x10^3/uL Basophils # (0-0.4) x10^3/uL Sodium (137-145) mmol/L Potassium (3.5-5.1) mmol/L Chloride (98-107) mmol/L Carbon Dioxide (22-30) mmol/L Anion Gap (5-15) MEQ/L BUN (9-20) mg/dL Creatinine (0.66-1.25) mg/dL Estimated GFR ML/MIN Glucose (74-106) mg/dL POC Glucometer 173 H (74 to 106) mg/dL Calcium (8.4-10.2) mg/dL Total Bilirubin (0.2-1.3) mg/dL AST (17-59) U/L ALT (0-50) U/L Alkaline Phosphatase (38-126) U/L Troponin I < 0.012 (0.000-0.034) ng/mL Serum Total Protein (6.3-8.2) g/dL Albumin (3.5-5.0) g/dL Prealbumin (17.6-36.0) mg/dL Triglycerides 224 H (30-150) mg/dL Cholesterol 168 (50-200) mg/dL LDL Cholesterol 100 (30-100) mg/dL HDL Cholesterol 32 L (40-60) mg/dL Heart Disease Risk Ratio 5.3 Influenza Type A Ag (NEGATIVE) Influenza Type B Ag (NEGATIVE) RSV (PCR) (Negative) SARS-CoV-2 (PCR) (NEGATIVE) Micro Results-Entire Visit: Accuchecks Date 12/19/22 Date 12/18/22 Date 12/18/22 Time 21:30 Time 16:20 - Radiology Exams Ordered Rad Exams-Entire Visit: Radiology Procedures Category Date Time Status CHEST 1 VIEW (PORTABLE) Stat Exams 12/18/22 10:37 Completed - Procedures and Test Procedures and Tests throughout Hospitalization: Therapy Orders & Screens 12/18/22 18:30 EKG ONCE Comment: Diagnosis: ACS, Chest pain 12/19/22 05:00 EKG ONCE Comment: Diagnosis: ACS, Chest pain 12/20/22 05:00 EKG ONCE Comment: Diagnosis: ACS, Chest pain 12/21/22 05:00 EKG ONCE Comment: Diagnosis: ACS, Chest pain - Discharge Disposition: Home, Self-Care Condition: Stable Prescriptions: Continue Metformin HCl 1000 mg [Glucophage 1000 MG] 1,000 mg PO BID Nitroglycerin [Nitrostat] 0.4 mg SL Q5MIN PRN MR X 3 PRN PRN Reason: Chest Pain Carvedilol [Coreg] 25 mg PO BID Gabapentin [Neurontin] 600 mg PO BID Lisinopril 5 mg [Zestril 5 MG] 20 mg PO BID Hydrochlorothiazide 25 mg [hydroDIURIL 25 MG] 12.5 mg PO DAILY Rosuvastatin Calcium [Crestor] 40 mg PO DAILY HydrALAzine HCL 25 MG TAB [Apresoline 25 MG TABLET] 25 mg PO BID Buspirone HCl 5 mg [Buspar 5 mg] 5 mg PO BID Flash Glucose Scanning Lowgap [Timecros 14 Day Lowgap] 1 each DAILY #1 kit Dapagliflozin Propanediol [Farxiga] 10 mg PO DAILY Fluoxetine HCl [Prozac] 10 mg PO DAILY Bumetanide 1 mg [Bumex 1 mg] 1 mg PO DAILY Naproxen 500 mg [Naprosyn 500 MG] 500 mg PO BID PANTOPRAZOLE 40 mg Tablet [Protonix 40MG Tablet] 40 mg PO DAILY Semaglutide [Ozempic] 2 mg SQ WEEKLY Testosterone Cypionate 200 mg IM UD Potassium Chloride [Klor-Con 10] 10 meq PO BID Insulin Lispro [Humalog Kwikpen U-100] 100 unit SQ UD Follow up with: BROOKLYN FRITZ MD [Primary Care Provider] - CHUCKIE GUERRERO [CONSULTING PHYSICIAN] - 1 Week
[2022-12-19] MEDS ORDERED: hydroDIURIL 25 MG PO SCH (10:00)
[2022-12-19] MEDS ORDERED: Protonix 40MG Tablet PO SCH (10:00)
[2022-12-19] MEDS ORDERED: ZOCOR 20MG PO SCH (10:00)
[2022-12-19] MEDS ORDERED: ROSUVASTATIN CALCIUM 40 MG PO SCH (10:00)
[2022-12-19] MEDS ORDERED: BUMEX 1 MG PO SCH (10:00)
[2022-12-19] MEDS ORDERED: PROZAC 10 MG PO SCH (10:00)
[2022-12-19] MEDS ORDERED: FLUOXETINE HCL 10 MG PO SCH (10:00)
[2022-12-19] MEDS ORDERED: [UNRECOGNIZED DRUG - SUPPLY] MC SCH (10:00)
[2022-12-19 10:10] VITALS: BP 146/78; PULSE 63
== END 2022-12-19 09:59 | disposition home or self-care (01) ==
LOC: ED 10:24 → MED SURG 13:03
PROVIDERS: ADMIT Family Medicine; ATTEND Family Medicine
DX: R07.9 Chest pain, unspecified (principal); E11.9 Type 2 diabetes mellitus without complications; I10 Essential (primary) hypertension; E78.5 Hyperlipidemia, unspecified; I25.10 Atherosclerotic heart disease of native coronary artery without angina pectoris; Z82.49 Family history of ischemic heart disease and other diseases of the circulatory system; Z79.899 Other long term (current) drug therapy; Z20.828 Contact with and (suspected) exposure to other viral communicable diseases
CPT/HCPCS: 0241U; 36000; 36415; 71045; 80048; 80053; 80061; 82947; 83721; 84134; 84484; 85025; 85027; 93005; 93041; 94760; 99285; 93268; J1817; A9270-GY; G0378

== ENCOUNTER 2023-01-25 05:53 | Day surgery (SDC) | payer MEDICARE ==
[2023-01-25] MEDS ORDERED: Xylocaine-Mpf 2% 5 Ml Vial ONE (06:16)
[2023-01-25] MEDS ORDERED: DIPRIVAN 200 MG/20 ML IV ONE ×3 (06:16→07:48)
[2023-01-25] MEDS ORDERED: Versed 2 MG/2 ML Injection ONE (06:16)
[2023-01-25] MEDS ORDERED: Lactated Ringers 1,000 ML IV ONE (06:40)
[2023-01-25] MEDS ORDERED: Lactated Ringers 1,000 ML IV SCH (07:00)
--- NOTE | 2023-01-25 08:30 | OP ---
SURGERY DATE/TIME: 01/25/2023 0725 PREOPERATIVE DIAGNOSIS: Rectal bleeding and abdominal pain. POSTOPERATIVE DIAGNOSES: 1) Mild gastritis. 2) Duodenitis. 3) Sigmoid diverticulosis. PROCEDURES: 1) EGD with cold forceps biopsy. 2) Colonoscopy. SURGEON: Dr. Guzman. ANESTHESIA: MAC. Medications given by anesthesia department. HISTORY: The patient is a 57-year-old white male patient reporting that he has been having problems with rectal bleeding for the past six months. It has been varying in quality at times bright red and at other times black. The patient did have previous endoscopic evaluation which he reports that there was a staple seen otherwise things were normal. The patient was felt the need to have endoscopic evaluation. He was described the risks of the procedure including the risk of perforation, phlebitis, untoward reaction to medication, bleeding and missed lesions. The patient verbalized his understanding and desired to have the procedure performed. DESCRIPTION OF PROCEDURE: The patient was given the medications by the anesthesia department. He had continuous pulse oximetry, ECG monitoring and intermittent blood pressure monitoring during the examination. He was placed in the left lateral decubitus position. A bite block was placed and the flexible Olympus gastroscope was used to intubate the oropharynx. A view of the larynx was normal. The scope was easily introduced in the esophagus which appeared to be essentially normal throughout its length. The stomach was entered where normal gastric rugal folds were seen and these distended nicely with insufflation of air. The scope was passed along the greater curvature of the stomach to the antrum. The pylorus encountered and intubated. The duodenum inspected and found to be generally inflamed but mild extent. No ulcers were noted. The scope is withdrawn towards the stomach. A retroflex view was obtained of the lesser curvature, fundus and cardia regions of the stomach and these appeared to be essentially normal. The scope was then redirected towards the gastric antrum and biopsies were obtained to rule out the presence of Helicobacter pylori-type organism. The scope was then removed from the patient. Next, a digital rectal examination was performed and revealed normal anal sphincter tone, no masses and normal prostate. The flexible Olympus pediatric colonoscope was used to intubate the rectum. A view of the colon was developed sequentially to the cecum. Upon insertion and withdrawal was noted an area of tattooing in the mid transverse colon but no lesions were otherwise noted. There was noted to be sigmoid diverticulosis on initial entry but no other mucosal lesions being encountered. The scope was removed from the patient who tolerated the procedure well and was sent back to OP recovery in good condition. The prep was noted to be fair to good.
[2023-01-25 08:33] VITALS: O2SAT 95
[2023-01-25 08:52] VITALS: BP 139/69; PULSE 54
== END 2023-01-25 09:00 | disposition home or self-care (01) ==
LOC: SDC 05:53
PROVIDERS: ATTEND Family Medicine
DX: K29.70 Gastritis, unspecified, without bleeding (principal); K62.5 Hemorrhage of anus and rectum; R10.9 Unspecified abdominal pain; E11.9 Type 2 diabetes mellitus without complications; K29.80 Duodenitis without bleeding; K57.30 Diverticulosis of large intestine without perforation or abscess without bleeding
CPT/HCPCS: 82947; J2250; J2704

== ENCOUNTER 2023-03-19 11:47 | Emergency (ER) | payer MEDICARE ==
--- NOTE | 2023-03-19 11:55 | ERPHSYRPT ---
- History of Present Illness Time Seen by Provider: 03/19/23 11:55 Source: patient Exam Limitations: no limitations Physician History: This is an obese 58-year-old white male who has multiple medical problems. His primary care provider is Dr. Horton. He sees referral management liaison Dr. Paiz and lead java software engineer Dr. Bolanos and presents with 5-day history of intermittent nausea vomiting and diarrhea. Patient has no known exposures to individuals with same symptoms or who have been diagnosed with flu. Patient has a history of hypertension, diabetes, hyperlipidemia, gastroesophageal reflux disease, coronary artery disease, peripheral vascular disease, COPD, sleep apnea, seizure disorder, panic disorder, depression and mild renal disease. Patient states that initially, 5 days ago he had vomiting followed by diarrhea. Today the vomiting has lessened as has his nausea but is still present and he was complaining of some left anterior chest pain that is sharp radiated into his left shoulder. He denies abdominal pain. He has not recently been on antibiotic therapy. Timing/Duration: day(s) (5) Severity: moderate Associated Symptoms: nausea, vomiting, chest pain, loss of appetite, weakness, No abdominal pain, No shortness of breath Allergies/Adverse Reactions: No Known Drug Allergies Allergy (Verified 03/19/23 11:56) Home Medications: Metformin HCl 1000 mg [Glucophage 1000 MG] 1,000 mg PO BID 05/17/15 [History] Nitroglycerin [Nitrostat] 0.4 mg SL Q5MIN PRN MR X 3 PRN 07/03/15 [History] Carvedilol [Coreg] 25 mg PO BID 05/07/17 [History] Gabapentin [Neurontin] 600 mg PO BID 07/24/20 [History] Hydrochlorothiazide 25 mg [hydroDIURIL 25 MG] 12.5 mg PO DAILY 07/24/20 [History] Lisinopril 5 mg [Zestril 5 MG] 20 mg PO BID 07/24/20 [History] Rosuvastatin Calcium [Crestor] 40 mg PO DAILY 07/24/20 [History] Buspirone HCl 5 mg [Buspar 5 mg] 5 mg PO BID 06/04/21 [History] HydrALAzine HCL 25 MG TAB [Apresoline 25 MG TABLET] 25 mg PO BID 06/04/21 [History] Bumetanide 1 mg [Bumex 1 mg] 1 mg PO DAILY 12/18/22 [History] Dapagliflozin Propanediol [Farxiga] 10 mg PO DAILY 12/18/22 [History] Fluoxetine HCl [Prozac] 10 mg PO DAILY 12/18/22 [History] Insulin Lispro [Humalog Kwikpen U-100] 100 unit SQ UD 12/18/22 [History] Naproxen 500 mg [Naprosyn 500 MG] 500 mg PO BID 12/18/22 [History] PANTOPRAZOLE 40 mg Tablet [Protonix 40MG Tablet] 40 mg PO DAILY 12/18/22 [History] Potassium Chloride [Klor-Con 10] 10 meq PO BID 12/18/22 [History] Semaglutide [Ozempic] 2 mg SQ WEEKLY 12/18/22 [History] Hx Tetanus, Diphtheria Vaccination/Date Given: Yes Hx Influenza Vaccination/Date Given: No Hx Pneumococcal Vaccination/Date Given: No Travel Risk - International Travel Have you traveled outside of the country in past 3 weeks: No - Coronavirus Screening Are you exhibiting any of the following symptoms?: Yes Symptoms: Vomiting/Diarrhea, Headaches/Body Aches/Fatigue - Vaccine Status Have you recieved a Covid-19 vaccination: Yes 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: [employer] - Vaccination Dates Date of 2cond Vaccination (if applicable): 2020 - Review of Systems Constitutional: Weakness Eyes: No Symptoms Ears, Nose, & Throat: No Symptoms Respiratory: No Symptoms Cardiac: Chest Pain Abdominal/Gastrointestinal: Nausea, Vomiting, Diarrhea, Appetite Changes, No Abdominal Pain, No Constipation Genitourinary Symptoms: No Symptoms Musculoskeletal: No Symptoms Skin: No Symptoms Neurological: No Symptoms Psychological: No Symptoms Endocrine: No Symptoms Hematologic/Lymphatic: No Symptoms Immunological/Allergic: No Symptoms All Other Systems: Reviewed and Negative - Past Medical History Pertinent Past Medical History: Yes Neurological History: Peripheral Neuropathy, Seizures ENT History: No Pertinent History Cardiac History: Coronary Artery Disease, High Cholesterol, Hypertension, Peripheral Vascular Disease Respiratory History: COPD, Sleep Apnea, Other Endocrine Medical History: Diabetes Type II Musculoskeletal History: Fractures, Osteoarthritis GI Medical History: Esophageal Disorder, GERD History: No Pertinent History Psycho-Social History: Depression, Panic Disorder Male Reproductive Disorders: Prostate Problems Other Medical History: SEIZURES A CHILD BUT NOT AN ADULT. COVID IN 2020. VACCINATED. FX LEFT FOREARM AND ANKLE A CHILD. HX GERD, PANCREATITIS, LOWER EXTREMITY CELLULITIS. HX ARTHROSCOPIC SURGERY LEFT KNEE FOR "CLEANING IT OUT" 2020 (BEFORE ) - Past Surgical History Past Surgical History: Yes Neuro Surgical History: No Pertinent History Cardiac: Cardiac Catheterization Respiratory: No Pertinent History Gastrointestinal: No Pertinent History Genitourinary: No Pertinent History Musculoskeletal: No Pertinent History Male Surgical History: No Pertinent History Other Surgical History: uvula removed. carpal tunnel right hand - Social History Smoking Status: Former smoker Exposure to second hand smoke: No Alcohol Use: None Drug Use: none Patient Lives Alone: Yes Significant Family History: heart disease, diabetes, hypertension - Nursing Vital Signs Nursing Vital Signs: Initial Vital Signs Temperature 97.7 F 03/19/23 11:57 Pulse Rate 73 03/19/23 11:57 Respiratory Rate 12 03/19/23 11:57 Blood Pressure 118/51 03/19/23 11:57 O2 Sat by Pulse Oximetry 99 03/19/23 11:57 Pain Scale Pain Intensity 0 - Physical Exam General Appearance: no apparent distress, alert, anxiety, obese Eye Exam: PERRL/EOMI, eyes nml inspection Ears, Nose, Throat Exam: normal ENT inspection, moist mucous membranes Neck Exam: normal inspection, non-tender, supple, full range of motion Respiratory Exam: normal breath sounds, chest tenderness, lungs clear, airway intact, No respiratory distress Cardiovascular Exam: regular rate/rhythm, normal heart sounds, normal peripheral pulses Gastrointestinal/Abdomen Exam: soft, normal bowel sounds, No tenderness Rectal Exam: not done Back Exam: normal inspection, normal range of motion, No CVA tenderness, No vertebral tenderness Extremity Exam: normal range of motion, pelvis stable, other (Skin bilateral lower extremities appears though he has had several bug bites that are not infected.) Neurologic Exam: alert, oriented x 3, cooperative, burnisher and bumper II-XII nml as tested, normal mood/affect, nml cerebellar function, nml station & gait, sensation nml Skin Exam: normal color, warm, dry Lymphatic Exam: No adenopathy SpO2 Interpretation: normal O2 Delivery: Room Air - Course Nursing assessment & vital signs reviewed: Yes EKG Interpreted by Me: RATE (73), Sinus Rhythm, NORMAL AXIS, NORMAL INTERVALS, NORMAL QRS, NORMAL ST-T, Other (No acute ischemic changes on today's twelve-lead EKG.) Ordered Tests: Active Orders 24 hr Category Date Time Status Canal Structure Operator STAT Care 03/19/23 12:14 Active EKG-ER Only STAT Care 03/19/23 12:13 Active IV Insertion STAT Care 03/19/23 12:13 Active POCT Glucose Check STAT Care 03/19/23 12:13 Active Pulse Oximetry (ED) STAT Care 03/19/23 12:13 Active HEAD WITHOUT CONTRAST [CT] Stat Exams 03/19/23 12:45 Completed BLOOD CULTURE Stat Lab 03/19/23 12:28 Received CBC W DIFF Stat Lab 03/19/23 12:28 Completed CMP Stat Lab 03/19/23 12:28 Completed Lactic Acid Stat Lab 03/19/23 12:40 Completed MONO SCREEN Stat Lab 03/19/23 12:30 Completed POCT GLUCOSE Stat Lab 03/19/23 12:18 Completed TROPONIN Q4H Lab 03/19/23 12:28 Completed TROPONIN Q4H Lab 03/19/23 16:15 Ordered TROPONIN Q4H Lab 03/19/23 20:15 Ordered UA W/RFX UR CULTURE Stat Lab 03/19/23 15:26 Completed Medication Summary Generic Name Dose Route Start Last Admin Trade Name Freq PRN Reason Stop Dose Admin Sodium Chloride 1,000 mls @ 100 mls/hr 03/19/23 12:15 03/19/23 15:09 Sodium Chloride 0.9% 1000 Ml IV 04/18/23 12:14 Infused .Q10H LACY Infusion Discontinued Medications Generic Name Dose Route Start Last Admin Trade Name Freq PRN Reason Stop Dose Admin Al Hydrox/Mg Hydrox/Simethicone Confirm 03/19/23 13:17 Mag Hydrox/Al Hydrox/Simeth 30 Ml Udcup Administered 03/19/23 13:18 Dose 30 ml .ROUTE .STK-MED ONE Sodium Chloride 1,000 mls @ 999 mls/hr 03/19/23 13:24 03/19/23 16:23 Sodium Chloride 0.9% 1000 Ml IV 03/19/23 14:24 Infused .Q1H1M STA Infusion Lidocaine HCl Confirm 03/19/23 13:17 Lidocaine Hcl 2% Viscous 15 Ml Udcup Administered 03/19/23 13:18 Dose 15 ml .ROUTE .STK-MED ONE Magnesium Hydroxide 45 ml 03/19/23 13:13 03/19/23 13:19 Mag Hydrx/Alum Hyd/Simeth/Lido 45 Ml Bottle PO 03/19/23 13:14 45 ml STAT ONE Administration Ondansetron HCl 4 mg 03/19/23 12:13 03/19/23 12:20 Ondansetron Hcl 4 Mg/2 Ml Vial IV 03/19/23 12:14 4 mg STAT STA Administration Ondansetron HCl Confirm 03/19/23 12:19 Ondansetron Hcl 4 Mg/2 Ml Vial Administered 03/19/23 12:20 Dose 4 mg .ROUTE .STK-MED ONE Pantoprazole Sodium 40 mg 03/19/23 13:13 03/19/23 13:19 Pantoprazole 40 Mg Vial IV 03/19/23 13:14 40 mg STAT ONE Administration Pantoprazole Sodium Confirm 03/19/23 13:17 Pantoprazole 40 Mg Vial Administered 03/19/23 13:18 Dose 40 mg IV .STK-MED ONE Lab/Rad Data: Laboratory Result Diagrams 03/19/23 12:28 03/19/23 12:28 Laboratory Results 03/19/23 03/19/23 03/19/23 Range/Units Unknown 15:26 12:40 WBC (4.0-10.5) x10^3/uL RBC (4.1-5.6) x10^6/uL Hgb (12.5-18.0) g/dL Hct (42-50) % MCV (78-100) fL MCH (26-32) pg MCHC (32-36) g/dL RDW (11.5-14.0) % Plt Count (150-450) x10^3/uL MPV (7.5-11.0) fL Gran % (36.0-66.0) % Immature Gran % (Auto) (0.00-0.4) % Nucleat RBC Rel Count (0.00-0.1) % Eos # (Auto) (0-0.5) x10^3/uL Immature Gran # (Auto) (0.00-0.03) x10^3u/L Absolute Lymphs (auto) (1.0-4.6) x10^3/uL Absolute Monos (auto) (0.0-1.3) x10^3/uL Absolute Nucleated RBC (0.00-0.01) x10^3u/L Lymphocytes % (24.0-44.0) % Monocytes % (0.0-12.0) % Eosinophils % (0.00-5.0) % Basophils % (0.0-0.4) % Absolute Granulocytes (1.4-6.9) x10^3/uL Basophils # (0-0.4) x10^3/uL Sodium (137-145) mmol/L Potassium (3.5-5.1) mmol/L Chloride (98-107) mmol/L Carbon Dioxide (22-30) mmol/L Anion Gap (5-15) MEQ/L BUN (9-20) mg/dL Creatinine (0.66-1.25) mg/dL Estimated GFR ML/MIN Glucose (74-106) mg/dL POC Glucometer (74 to 106) mg/dL Lactic Acid 1.7 (0.4-2.0) Calcium (8.4-10.2) mg/dL Total Bilirubin (0.2-1.3) mg/dL AST (17-59) U/L ALT (0-50) U/L Alkaline Phosphatase (38-126) U/L Troponin I (0.000-0.034) ng/mL Serum Total Protein (6.3-8.2) g/dL Albumin (3.5-5.0) g/dL Urine Color Yellow (Yellow) Urine Appearance Clear (Clear) Urine pH 5.5 (4.6-8.0) Ur Specific [place] 1.015 (1.005-1.030) Urine Protein 100 A (Negative) Urine Glucose (UA) Negative (Negative) mg/dL Urine Ketones Trace A (Negative) Urine Blood Negative (Negative) Urine Nitrite Negative (Negative) Urine Bilirubin Negative (Negative) Urine Urobilinogen 0.2 (0.2) mg/dL Ur Leukocyte Esterase Negative (Negative) U Hyaline Cast (Auto) 20-50 (0-2) /LPF Urine Microscopic RBC 0-2 (0-5) /HPF Urine Microscopic WBC 0-2 (0-5) /HPF Ur Epithelial Cells Few (None Seen) /HPF Urine Bacteria None Seen (None Seen) /HPF Urine Culture Reflexed NO (NO) Monoscreen (NEGATIVE) Influenza Type A Ag NEGATIVE (NEGATIVE) Influenza Type B Ag NEGATIVE (NEGATIVE) RSV (PCR) NEGATIVE (NEGATIVE) SARS-CoV-2 (PCR) NEGATIVE (NEGATIVE) Group A Strep Antibody (NEGATIVE) 03/19/23 03/19/23 03/19/23 Range/Units 12:30 12:30 12:28 WBC (4.0-10.5) x10^3/uL RBC (4.1-5.6) x10^6/uL Hgb (12.5-18.0) g/dL Hct (42-50) % MCV (78-100) fL MCH (26-32) pg MCHC (32-36) g/dL RDW (11.5-14.0) % Plt Count (150-450) x10^3/uL MPV (7.5-11.0) fL Gran % (36.0-66.0) % Immature Gran % (Auto) (0.00-0.4) % Nucleat RBC Rel Count (0.00-0.1) % Eos # (Auto) (0-0.5) x10^3/uL Immature Gran # (Auto) (0.00-0.03) x10^3u/L Absolute Lymphs (auto) (1.0-4.6) x10^3/uL Absolute Monos (auto) (0.0-1.3) x10^3/uL Absolute Nucleated RBC (0.00-0.01) x10^3u/L Lymphocytes % (24.0-44.0) % Monocytes % (0.0-12.0) % Eosinophils % (0.00-5.0) % Basophils % (0.0-0.4) % Absolute Granulocytes (1.4-6.9) x10^3/uL Basophils # (0-0.4) x10^3/uL Sodium (137-145) mmol/L Potassium (3.5-5.1) mmol/L Chloride (98-107) mmol/L Carbon Dioxide (22-30) mmol/L Anion Gap (5-15) MEQ/L BUN (9-20) mg/dL Creatinine (0.66-1.25) mg/dL Estimated GFR ML/MIN Glucose (74-106) mg/dL POC Glucometer (74 to 106) mg/dL Lactic Acid (0.4-2.0) Calcium (8.4-10.2) mg/dL Total Bilirubin (0.2-1.3) mg/dL AST (17-59) U/L ALT (0-50) U/L Alkaline Phosphatase (38-126) U/L Troponin I < 0.012 (0.000-0.034) ng/mL Serum Total Protein (6.3-8.2) g/dL Albumin (3.5-5.0) g/dL Urine Color (Yellow) Urine Appearance (Clear) Urine pH (4.6-8.0) Ur Specific [place] (1.005-1.030) Urine Protein (Negative) Urine Glucose (UA) (Negative) mg/dL Urine Ketones (Negative) Urine Blood (Negative) Urine Nitrite (Negative) Urine Bilirubin (Negative) Urine Urobilinogen (0.2) mg/dL Ur Leukocyte Esterase (Negative) U Hyaline Cast (Auto) (0-2) /LPF Urine Microscopic RBC (0-5) /HPF Urine Microscopic WBC (0-5) /HPF Ur Epithelial Cells (None Seen) /HPF Urine Bacteria (None Seen) /HPF Urine Culture Reflexed (NO) Monoscreen NEGATIVE (NEGATIVE) Influenza Type A Ag (NEGATIVE) Influenza Type B Ag (NEGATIVE) RSV (PCR) (NEGATIVE) SARS-CoV-2 (PCR) (NEGATIVE) Group A Strep Antibody NOT DETECTED (NEGATIVE) 03/19/23 03/19/23 03/19/23 Range/Units 12:28 12:28 12:18 WBC 4.4 (4.0-10.5) x10^3/uL RBC 4.40 (4.1-5.6) x10^6/uL Hgb 13.1 (12.5-18.0) g/dL Hct 38.9 L (42-50) % MCV 88.4 (78-100) fL MCH 29.8 (26-32) pg MCHC 33.7 (32-36) g/dL RDW 13.8 (11.5-14.0) % Plt Count 209 (150-450) x10^3/uL MPV 9.5 (7.5-11.0) fL Gran % 59.0 (36.0-66.0) % Immature Gran % (Auto) 0.5 H (0.00-0.4) % Nucleat RBC Rel Count 0.0 (0.00-0.1) % Eos # (Auto) 0.12 (0-0.5) x10^3/uL Immature Gran # (Auto) 0.02 (0.00-0.03) x10^3u/L Absolute Lymphs (auto) 0.93 L (1.0-4.6) x10^3/uL Absolute Monos (auto) 0.68 (0.0-1.3) x10^3/uL Absolute Nucleated RBC 0.00 (0.00-0.01) x10^3u/L Lymphocytes % 21.4 L (24.0-44.0) % Monocytes % 15.6 H (0.0-12.0) % Eosinophils % 2.8 (0.00-5.0) % Basophils % 0.7 (0.0-0.4) % Absolute Granulocytes 2.57 (1.4-6.9) x10^3/uL Basophils # 0.03 (0-0.4) x10^3/uL Sodium 140 (137-145) mmol/L Potassium 3.7 (3.5-5.1) mmol/L Chloride 107 (98-107) mmol/L Carbon Dioxide 20 L (22-30) mmol/L Anion Gap 16.9 H (5-15) MEQ/L BUN 39 H (9-20) mg/dL Creatinine 2.04 H (0.66-1.25) mg/dL Estimated GFR 35.7 ML/MIN Glucose 123 H (74-106) mg/dL POC Glucometer 129 H (74 to 106) mg/dL Lactic Acid (0.4-2.0) Calcium 8.6 (8.4-10.2) mg/dL Total Bilirubin 0.30 (0.2-1.3) mg/dL AST 24 (17-59) U/L ALT 24 (0-50) U/L Alkaline Phosphatase 51 (38-126) U/L Troponin I (0.000-0.034) ng/mL Serum Total Protein 7.4 (6.3-8.2) g/dL Albumin 4.0 (3.5-5.0) g/dL Urine Color (Yellow) Urine Appearance (Clear) Urine pH (4.6-8.0) Ur Specific [place] (1.005-1.030) Urine Protein (Negative) Urine Glucose (UA) (Negative) mg/dL Urine Ketones (Negative) Urine Blood (Negative) Urine Nitrite (Negative) Urine Bilirubin (Negative) Urine Urobilinogen (0.2) mg/dL Ur Leukocyte Esterase (Negative) U Hyaline Cast (Auto) (0-2) /LPF Urine Microscopic RBC (0-5) /HPF Urine Microscopic WBC (0-5) /HPF Ur Epithelial Cells (None Seen) /HPF Urine Bacteria (None Seen) /HPF Urine Culture Reflexed (NO) Monoscreen (NEGATIVE) Influenza Type A Ag (NEGATIVE) Influenza Type B Ag (NEGATIVE) RSV (PCR) (NEGATIVE) SARS-CoV-2 (PCR) (NEGATIVE) Group A Strep Antibody (NEGATIVE) - Progress Progress: improved, re-examined Progress Note: 03/19/23 13:22 CAT scan of the head without contrast shows a nonacute senile brain with remote lacunar infarct of the left basal ganglia. 03/19/23 16:31 Reexamined the patient shows the patient that states he is feeling very good at this time. He has no chest pain. He has no headache. He has no abdominal pain. He is tolerating clear liquids. Patient wants to be discharged to home. I think this is a reasonable request. This patient's medical issue is 1 of moderate complexity. The level of co mplexity and work-up performed is based on review of the patient's past medical history, review of the patient's medication list, review of the patient's drug allergy list, history present illness and physical findings on examination. The work-up in this patient includes viral screens, urinalysis, placement of intravenous line and infusion of normal saline solution, CBC, CMP, amylase, twelve-lead EKG, troponin level and CT scan of the head without contrast. There is no evidence of any acute or emergent medical issues. The patient had trace ketones in his urine without urinary tract infection. Patient may have had a viral illness which caused him to have vomiting. The vomiting of several episodes over several days likely caused him to have the dehydration giving him his symptoms. Counseled pt/family regarding: lab results, diagnosis, need for follow-up, [place] esults Medical Desision Making - Diagnostic Testing Diagnostic test were ordered, analyzed, and reviewed by me: Yes Radiological Interpretation: Reviewed by me, Teleradiologist Report - Risk of complications The pt has a mod risk of morbidity or mortality based on: Need for prescription drug management - Departure Departure Disposition: Home Clinical Impression: Weakness, Vomiting, Dehydration Condition: Stable Critical Care Time: No Referrals: BROOKLYN HORTON MD [Primary Care Provider] - Follow up/PCP as directed Additional Instructions: Drink clear liquids for the next 12 to 16 hours. You may advance your diet after tolerating clear liquids well. Avoid fatty greasy spicy foods. Take your medication as prescribed. Call your primary care provider on 03/20/2023 to make arrangements for follow-up appointment in the next 3 days. Prescriptions: Ondansetron ODT 4 MG [Zofran Odt 4 mg] 4 mg PO Q6H PRN PRN #10 tablet PRN Reason: Vomiting
[2023-03-19] MEDS ORDERED: Zofran 4 MG/2 ML VIAL IV STA (12:13)
[2023-03-19] MEDS ORDERED: Sodium Chloride 0.9% 1000 ML 1,000 ML IV SCH (12:15)
[2023-03-19] MEDS ORDERED: Zofran 4 MG/2 ML VIAL ONE (12:19)
[2023-03-19] MEDS ORDERED: Sodium Chloride 0.9% 1000 ML 1,000 ML ONE ×2 (12:19→15:21)
[2023-03-19 12:44] LABS: Absolute Neutrophil Ct (ANC) 2.57 x10^3/uL (1.4-6.9); BASOPHIL % 0.7 % (0.0-0.4); Basophil (Absolute #) 0.03 x10^3/uL (0-0.4); Eosinophil % 2.8 % (0.00-5.0); Eosinophil (Absolute #) 0.12 x10^3/uL (0-0.5); Hematocrit 38.9 % (42-50); Hemoglobin 13.1 g/dL (12.5-18.0); IMMATURE GRAN # 0.02 x10^3u/L (0.00-0.03); IMMATURE GRAN % 0.5 % (0.00-0.4); Lymphocyte (Absolute #) 0.93 x10^3/uL (1.0-4.6); Lymphocytes % 21.4 % (24.0-44.0); Mean Cell Volume 88.4 fL (78-100); Mean Corpuscular Hemoglobin 29.8 pg (26-32); Mean Corpuscular Hgb Concent. 33.7 g/dL (32-36); Mean Platelet Volume 9.5 fL (7.5-11.0); Monocyte (Absolute #) 0.68 x10^3/uL (0.0-1.3); Monocytes % 15.6 % (0.0-12.0); Platelet Count 209 x10^3/uL (150-450); Red Cell Distribution Width 13.8 % (11.5-14.0); White Blood Count 4.4 x10^3/uL (4.0-10.5)
[2023-03-19 13:00] LABS: ANION GAP 16.9 MEQ/L (5-15); BILIRUBIN,TOTAL 0.3 mg/dL (0.2-1.3); Calcium 8.6 mg/dL (8.4-10.2); Creatinine 1 2.04 mg/dL (0.66-1.25); EST GLOMERULAR FILTRATION RATE 35.7 ML/MIN; Potassium 3.7 mmol/L (3.5-5.1); Total Protein 7.4 g/dL (6.3-8.2)
[2023-03-19] MEDS ORDERED: GI COCKTAIL 45 ML (Maalox/Lidocaine) PO ONE (13:13)
[2023-03-19] MEDS ORDERED: PROTONIX 40 MG IV IV ONE ×2 (13:13→13:17)
[2023-03-19] MEDS ORDERED: MAALOX ES 30 ML UNIT DOSE ONE (13:17)
[2023-03-19] MEDS ORDERED: XYLOCAINE VISCOUS 2% 15 ML CUP ONE (13:17)
--- NOTE | 2023-03-19 13:17 | XRAY ---
Indication: Lightheaded. Syncope. Multiple contiguous axial images obtained through the head without contrast. Comparison: July 25, 2022 Again age-appropriate global atrophy, minimal periventricular degenerative micro-ischemia, and tiny remote lacunar infarct left basal ganglia. No acute intracranial hemorrhage, abnormal extra-axial fluid collection, or mass effect. Fourth ventricle is midline without hydrocephalus. Bony calvarium intact. Visualized paranasal sinuses and mastoid air cells are clear. Impression: Continued nonacute senile brain with remote lacunar infarct left basal ganglia.
[2023-03-19 13:21] LABS: INFLUENZA A NEGATIVE (NEGATIVE); INFLUENZA B NEGATIVE (NEGATIVE); RESPIRATORY SYNCTIAL VIRUS NEGATIVE (NEGATIVE); SARS-CoV-2 Xpert Express NEGATIVE (NEGATIVE)
[2023-03-19] MEDS ORDERED: Sodium Chloride 0.9% 1000 ML 1,000 ML IV STA (13:24)
[2023-03-19 15:06] VITALS: O2SAT 96
[2023-03-19 15:36] LABS: Appearance Clear (Clear); Bacteria None Seen /HPF (None Seen); Bilirubin Negative (Negative); Blood Negative (Negative); Epithelial Cells Few /HPF (None Seen); Glucose, Urine Negative (Negative); Ketones Trace (Negative); Leukocyte Esterase Negative (Negative); Nitrite Negative (Negative); Ph 5.5 (4.6-8.0); Protein,Urine Dip 100 (Negative); RBC 0-2 /HPF (0-5); Specific Gravity 1.015 (1.005-1.030); Urobilinogen 0.2 mg/dL (0.2); WBC 0-2 /HPF (0-5)
[2023-03-19 15:37] LABS: ADD URINE CULTURE? NO (NO); Hyaline Casts 20-50 /LPF (0-2)
[2023-03-19 16:47] VITALS: BP 123/51; PULSE 72
== END 2023-03-19 16:52 | disposition home or self-care (01) ==
LOC: ED 11:47
DX: R53.1 Weakness (principal); R11.2 Nausea with vomiting, unspecified; E86.0 Dehydration; R19.7 Diarrhea, unspecified; R07.9 Chest pain, unspecified; I10 Essential (primary) hypertension; E11.42 Type 2 diabetes mellitus with diabetic polyneuropathy; E78.5 Hyperlipidemia, unspecified; Z79.84 Long term (current) use of oral hypoglycemic drugs; Z79.4 Long term (current) use of insulin; Z79.85 Long-term (current) use of injectable non-insulin antidiabetic drugs; Z79.899 Other long term (current) drug therapy; Z86.16 Personal history of COVID-19; Z20.828 Contact with and (suspected) exposure to other viral communicable diseases
CPT/HCPCS: 0241U; 36000; 36415; 70450; 80053; 81001; 82947; 83605; 84484; 85025; 86308; 87040; 87651; 93005; 93041; 94760; 96360; 96361; 96374; 96375; 99284; J2405; A9270-GY

== ENCOUNTER 2023-04-05 13:12 | Emergency (ER) | payer MEDICARE ==
--- NOTE | 2023-04-05 13:17 | ERPHSYRPT ---
- History of Present Illness Time Seen by Provider: 04/05/23 13:16 Source: patient Exam Limitations: no limitations Physician History: This is a 58-year-old white male patient of Dr. 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 Bolanos and presents with dizziness and near syncope throughout the last 7 days intermittently. This morning it appeared to be worse. He called his primary care physician and they could not see him and therefore he came to the emergency department for further evaluation and management. The patient denies chest pain. He denies shortness of breath. Patient has noticed that his blood pressure has been lower than usual and he stopped his blood pressure medicine. However, he has kept taking his Bumex. Patient does have chronic renal disease he is not on dialysis. Patient has a history of hypertension, diabetes, hyperlipidemia, gastroesophageal reflux disease, coronary disease, peripheral neuropathy, peripheral vascular disease, COPD and panic disorder. Patient's blood sugar upon entrance into his emergency department room was 80 Timing/Duration: week(s) (1), intermittent, worse Severity: moderate Character of Deficits: other (Feels a little generalized when he is upright and walking) Baseline/Normal Cognition: alert oriented x 3 Current Cognition: alert oriented x 3 Baseline Gait: walks w/o assistance Associated Symptoms: paresthesia (Generalized, mild when upright and walking), No loss of consciousness, No seizures, No slurred speech, No vision changes, No chest pain, No headache Allergies/Adverse Reactions: No Known Drug Allergies Allergy (Verified 04/05/23 13:32) Home Medications: Metformin HCl 1000 mg [Glucophage 1000 MG] 1,000 mg PO BID 05/17/15 [History] Nitroglycerin [Nitrostat] 0.4 mg SL Q5MIN PRN MR X 3 PRN 07/03/15 [History] Gabapentin [Neurontin] 600 mg PO BID 07/24/20 [History] Hydrochlorothiazide 25 mg [hydroDIURIL 25 MG] 12.5 mg PO DAILY 07/24/20 [History] Rosuvastatin Calcium [Crestor] 40 mg PO DAILY 07/24/20 [History] Buspirone HCl 5 mg [Buspar 5 mg] 5 mg PO BID 06/04/21 [History] HydrALAzine HCL 25 MG TAB [Apresoline 25 MG TABLET] 25 mg PO BID 06/04/21 [History] Bumetanide 1 mg [Bumex 1 mg] 1 mg PO DAILY 12/18/22 [History] Dapagliflozin Propanediol [Farxiga] 10 mg PO DAILY 12/18/22 [History] Fluoxetine HCl [Prozac] 10 mg PO DAILY 12/18/22 [History] Insulin Lispro [Humalog Kwikpen U-100] 100 unit SQ UD 12/18/22 [History] Naproxen 500 mg [Naprosyn 500 MG] 500 mg PO BID 12/18/22 [History] PANTOPRAZOLE 40 mg Tablet [Protonix 40MG Tablet] 40 mg PO DAILY 12/18/22 [History] Potassium Chloride [Klor-Con 10] 10 meq PO BID 12/18/22 [History] Semaglutide [Ozempic] 2 mg SQ WEEKLY 12/18/22 [History] Hx Tetanus, Diphtheria Vaccination/Date Given: Yes Hx Influenza Vaccination/Date Given: No Hx Pneumococcal Vaccination/Date Given: No Travel Risk - International Travel Have you traveled outside of the country in past 3 weeks: No - Coronavirus Screening Are you exhibiting any of the following symptoms?: No Close contact with a COVID-19 positive Pt in past 14-21 Days: No - Vaccine Status Have you recieved a Covid-19 vaccination: Yes Group Work Program Aide: Frankly [employer] - Vaccination Dates Date of 2cond Vaccination (if applicable): 2020 - Review of Systems Constitutional: No Symptoms Eyes: No Symptoms, Foreign Body Sensation Respiratory: No Symptoms Cardiac: No Symptoms Abdominal/Gastrointestinal: No Symptoms Genitourinary Symptoms: No Symptoms Musculoskeletal: No Symptoms Skin: No Symptoms Neurological: Dizziness, Parasthesia (Mild and generalized when upright and walking) Psychological: No Symptoms Endocrine: No Symptoms Hematologic/Lymphatic: No Symptoms Immunological/Allergic: No Symptoms All Other Systems: Reviewed and Negative - Past Medical History Pertinent Past Medical History: Yes Neurological History: Peripheral Neuropathy, Seizures ENT History: No Pertinent History Cardiac History: Coronary Artery Disease, High Cholesterol, Hypertension, Peripheral Vascular Disease Respiratory History: COPD, Sleep Apnea, Other Endocrine Medical History: Diabetes Type II Musculoskeletal History: Fractures, Osteoarthritis GI Medical History: Esophageal Disorder, GERD History: No Pertinent History Psycho-Social History: Depression, Panic Disorder Male Reproductive Disorders: Prostate Problems Other Medical History: SEIZURES A CHILD BUT NOT AN ADULT. COVID IN 2019. VACCINATED. FX LEFT FOREARM AND ANKLE A CHILD. HX GERD, PANCREATITIS, LOWER EXTREMITY CELLULITIS. HX ARTHROSCOPIC SURGERY LEFT KNEE FOR "CLEANING IT OUT" 2020 (BEFORE ) - Past Surgical History Past Surgical History: Yes Neuro Surgical History: No Pertinent History Cardiac: Cardiac Catheterization Respiratory: No Pertinent History Gastrointestinal: No Pertinent History Genitourinary: No Pertinent History Musculoskeletal: No Pertinent History Male Surgical History: No Pertinent History Other Surgical History: uvula removed. carpal tunnel right hand - Social History Smoking Status: Former smoker Exposure to second hand smoke: No Alcohol Use: None Drug Use: none Patient Lives Alone: Yes Significant Family History: heart disease, diabetes, hypertension - Nursing Vital Signs Nursing Vital Signs: Initial Vital Signs Temperature 97.9 F 04/05/23 13:25 Pulse Rate 63 04/05/23 13:25 Respiratory Rate 17 04/05/23 13:25 Blood Pressure 78/49 04/05/23 13:25 O2 Sat by Pulse Oximetry 95 04/05/23 13:25 Pain Scale Pain Intensity 6 - Carnegie Coma Scale Best Eye Response (Carnegie): (4) open spontaneously Best Verbal Response (Elena): (5) oriented Best Motor Response (Elena): (6) obeys commands Carnegie Total: 15 - Physical Exam General Appearance: no apparent distress, alert, anxiety Eye Exam: bilateral eye: normal inspection, PERRL, EOMI Ears, Nose, Throat Exam: normal ENT inspection, TMs normal, moist mucous membranes Neck Exam: normal inspection, non-tender, supple, full range of motion Respiratory: normal breath sounds, lungs clear, airway intact, No chest tenderness, No respiratory distress Cardiovascular: regular rate/rhythm, normal heart sounds, normal peripheral pulses Gastrointestinal: soft, normal bowel sounds, No tenderness Rectal Exam: not done Back Exam: normal inspection, normal range of motion, No CVA tenderness, No vertebral tenderness Extremity Exam: normal inspection, normal range of motion, pelvis stable Mental Status: alert, oriented x 3, cooperative fur liner Exam: normal hearing, normal speech, tongue midline Coordination/Gait: normal finger to nose, normal gait, normal cerebellar function Motor/Sensory: no motor deficit, no sensory deficit, no pronator drift Skin Exam: normal color, warm, dry SpO2 Interpretation: normal O2 Delivery: Room Air - Course Nursing assessment & vital signs reviewed: Yes EKG Interpreted by Me: RATE (63), Sinus Rhythm, NORMAL AXIS, NORMAL INTERVALS, NORMAL QRS, Non-specific ST Changes (Lateral leads), Other (No acute ischemic changes on today's twelve-lead EKG.) Ordered Tests: Active Orders 24 hr Category Date Time Status EKG-ER Only STAT Care 04/05/23 13:48 Active IV Insertion STAT Care 04/05/23 13:48 Active HEAD WITHOUT CONTRAST [CT] Stat Exams 04/05/23 13:49 Completed CBC W DIFF Stat Lab 04/05/23 13:55 Completed CMP Stat Lab 04/05/23 13:55 Completed ETHYL ALCOHOL Stat Lab 04/05/23 13:55 Completed MAGNESIUM Stat Lab 04/05/23 13:55 Completed POCT GLUCOSE Stat Lab 04/05/23 13:38 Completed TROPONIN Q4H Lab 04/05/23 13:55 Completed TROPONIN Q4H Lab 04/05/23 18:00 Ordered TROPONIN Q4H Lab 04/05/23 22:00 Ordered UA W/RFX UR CULTURE Stat Lab 04/05/23 14:00 Completed Medication Summary Generic Name Dose Route Start Last Admin Trade Name Freq PRN Reason Stop Dose Admin Sodium Chloride 1,000 mls @ 100 mls/hr 04/05/23 13:45 04/05/23 14:42 Sodium Chloride 0.9% 1000 Ml IV 05/05/23 13:44 999 mls/hr .Q10H LACY Infusion Sodium Chloride 500 mls @ 500 mls/hr 04/05/23 15:45 Sodium Chloride 0.9% 500 Ml IV 04/05/23 16:44 .Q1H ONE Lab/Rad Data: Laboratory Result Diagrams 04/05/23 13:55 04/05/23 13:55 Laboratory Results 04/05/23 04/05/23 04/05/23 Range/Units Unknown 14:00 13:55 WBC (4.0-10.5) x10^3/uL RBC (4.1-5.6) x10^6/uL Hgb (12.5-18.0) g/dL Hct (42-50) % MCV (78-100) fL MCH (26-32) pg MCHC (32-36) g/dL RDW (11.5-14.0) % Plt Count (150-450) x10^3/uL MPV (7.5-11.0) fL Gran % (36.0-66.0) % Immature Gran % (Auto) (0.00-0.4) % Nucleat RBC Rel Count (0.00-0.1) % Eos # (Auto) (0-0.5) x10^3/uL Immature Gran # (Auto) (0.00-0.03) x10^3u/L Absolute Lymphs (auto) (1.0-4.6) x10^3/uL Absolute Monos (auto) (0.0-1.3) x10^3/uL Absolute Nucleated RBC (0.00-0.01) x10^3u/L Lymphocytes % (24.0-44.0) % Monocytes % (0.0-12.0) % Eosinophils % (0.00-5.0) % Basophils % (0.0-0.4) % Absolute Granulocytes (1.4-6.9) x10^3/uL Basophils # (0-0.4) x10^3/uL Sodium (137-145) mmol/L Potassium (3.5-5.1) mmol/L Chloride (98-107) mmol/L Carbon Dioxide (22-30) mmol/L Anion Gap (5-15) MEQ/L BUN (9-20) mg/dL Creatinine (0.66-1.25) mg/dL Estimated GFR ML/MIN Glucose (74-106) mg/dL POC Glucometer (74 to 106) mg/dL Calcium (8.4-10.2) mg/dL Magnesium (1.6-2.3) mg/dL Total Bilirubin (0.2-1.3) mg/dL AST (17-59) U/L ALT (0-50) U/L Alkaline Phosphatase (38-126) U/L Troponin I < 0.012 (0.000-0.034) ng/mL Serum Total Protein (6.3-8.2) g/dL Albumin (3.5-5.0) g/dL Urine Color Yellow (Yellow) Urine Appearance Clear (Clear) Urine pH 5.5 (4.6-8.0) Ur Specific Holmes 1.010 (1.005-1.030) Urine Protein Negative (Negative) Urine Glucose (UA) 250 A (Negative) mg/dL Urine Ketones Negative (Negative) Urine Blood Negative (Negative) Urine Nitrite Negative (Negative) Urine Bilirubin Negative (Negative) Urine Urobilinogen 0.2 (0.2) mg/dL Ur Leukocyte Esterase Negative (Negative) U Hyaline Cast (Auto) 3-5 A (0-2) /LPF Urine Microscopic RBC 0-2 (0-5) /HPF Urine Microscopic WBC 0-2 (0-5) /HPF Ur Epithelial Cells Rare (None Seen) /HPF Urine Bacteria Rare A (None Seen) /HPF Urine Culture Reflexed NO (NO) Ethyl Alcohol (0-10) mg/dL Influenza Type A Ag NEGATIVE (NEGATIVE) Influenza Type B Ag NEGATIVE (NEGATIVE) RSV (PCR) NEGATIVE (NEGATIVE) SARS-CoV-2 (PCR) NEGATIVE (NEGATIVE) 04/05/23 04/05/23 04/05/23 Range/Units 13:55 13:55 13:38 WBC 7.0 (4.0-10.5) x10^3/uL RBC 4.72 (4.1-5.6) x10^6/uL Hgb 14.0 (12.5-18.0) g/dL Hct 42.1 (42-50) % MCV 89.2 (78-100) fL MCH 29.7 (26-32) pg MCHC 33.3 (32-36) g/dL RDW 13.8 (11.5-14.0) % Plt Count 256 (150-450) x10^3/uL MPV 9.5 (7.5-11.0) fL Gran % 61.7 (36.0-66.0) % Immature Gran % (Auto) 0.4 (0.00-0.4) % Nucleat RBC Rel Count 0.0 (0.00-0.1) % Eos # (Auto) 0.09 (0-0.5) x10^3/uL Immature Gran # (Auto) 0.03 (0.00-0.03) x10^3u/L Absolute Lymphs (auto) 1.66 (1.0-4.6) x10^3/uL Absolute Monos (auto) 0.83 (0.0-1.3) x10^3/uL Absolute Nucleated RBC 0.00 (0.00-0.01) x10^3u/L Lymphocytes % 23.7 L (24.0-44.0) % Monocytes % 11.9 (0.0-12.0) % Eosinophils % 1.3 (0.00-5.0) % Basophils % 1.0 (0.0-0.4) % Absolute Granulocytes 4.32 (1.4-6.9) x10^3/uL Basophils # 0.07 (0-0.4) x10^3/uL Sodium 137 (137-145) mmol/L Potassium 4.2 (3.5-5.1) mmol/L Chloride 100 (98-107) mmol/L Carbon Dioxide 25 (22-30) mmol/L Anion Gap 16.7 H (5-15) MEQ/L BUN 46 H (9-20) mg/dL Creatinine 2.29 H (0.66-1.25) mg/dL Estimated GFR 31.2 ML/MIN Glucose 78 (74-106) mg/dL POC Glucometer 80 (74 to 106) mg/dL Calcium 9.1 (8.4-10.2) mg/dL Magnesium 2.4 H (1.6-2.3) mg/dL Total Bilirubin 0.50 (0.2-1.3) mg/dL AST 26 (17-59) U/L ALT 31 (0-50) U/L Alkaline Phosphatase 59 (38-126) U/L Troponin I (0.000-0.034) ng/mL Serum Total Protein 8.0 (6.3-8.2) g/dL Albumin 4.5 (3.5-5.0) g/dL Urine Color (Yellow) Urine Appearance (Clear) Urine pH (4.6-8.0) Ur Specific Holmes (1.005-1.030) Urine Protein (Negative) Urine Glucose (UA) (Negative) mg/dL Urine Ketones (Negative) Urine Blood (Negative) Urine Nitrite (Negative) Urine Bilirubin (Negative) Urine Urobilinogen (0.2) mg/dL Ur Leukocyte Esterase (Negative) U Hyaline Cast (Auto) (0-2) /LPF Urine Microscopic RBC (0-5) /HPF Urine Microscopic WBC (0-5) /HPF Ur Epithelial Cells (None Seen) /HPF Urine Bacteria (None Seen) /HPF Urine Culture Reflexed (NO) Ethyl Alcohol < 10 (0-10) mg/dL Influenza Type A Ag (NEGATIVE) Influenza Type B Ag (NEGATIVE) RSV (PCR) (NEGATIVE) SARS-CoV-2 (PCR) (NEGATIVE) - Progress Progress: improved, re-examined Progress Note: 04/05/23 15:47 CT scan of the head without contrast was interpreted by the radiologist and I reviewed the interpretation. The patient has no acute intracranial abnormality. It is unchanged from the CT scan of the head from approximately 2 weeks ago. There is persistent, remote lacunar infarct as previously mentioned in the prior CT scan of the head. It is unchanged. This patient's medical issue is 1 of moderate complexity. Level of complexity and the work-up performed is based on review of the patient's past medical history, review of the patient's medication list, review of the patient's drug allergy list, history present illness and physical findings on examination. Work-up in this patient includes twelve-lead EKG, CT scan of the head without contrast, troponin level, CBC, CMP and placement of intravenous line and infusion of normal saline solution. I reviewed the the work-up results and interpreted them. Clinically, the patient is feeling much better with a systolic blood pressure of 130. He continues to not have chest pain and he is not short of breath. 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 He is to stop his Bumex and his blood pressure medicine. He is to monitor his blood pressure and keep a log 3 times a day on 04/06 and 04/07/2023. He is to call his plant maintenance worker and primary care provider on 04/08/2023 to obtain a follow-up appoint ment. He is to return to the emergency department if symptoms recur. Counseled pt/family regarding: lab results, diagnosis, need for follow-up, rad results Medical Desision Making - Diagnostic Testing Diagnostic test were ordered, analyzed, and reviewed by me: Yes Radiological Interpretation: Reviewed by me, Teleradiologist Report - Risk of complications Low Risk: Low risk of morbidity from additional dx testing or treatment - Departure Departure Disposition: Home Clinical Impression: Dizziness, Hypotension Condition: Stable Critical Care Time: No Referrals: BROOKLYN HORTON MD [Primary Care Provider] - Follow up/PCP as directed Additional Instructions: Stop your blood pressure medicine and stop your Bumex. Eat a diabetic diet and monitor your blood sugar closely. Keep a morning noon and night (3 times a day) log of your blood pressure. Write it down for both Saturday and Saturday. Call your plant maintenance worker and your primary care provider on 04/08/2023 to make arrangements for follow-up appointment and for further instructions and management. Return to the emergency department if symptoms recur.
[2023-04-05] MEDS ORDERED: Sodium Chloride 0.9% 1000 ML 1,000 ML ONE (13:42)
[2023-04-05] MEDS: Sodium Chloride 0.9% 1000 ML 1,000 ML IV SCH (13:44)
[2023-04-05 14:13] LABS: Absolute Neutrophil Ct (ANC) 4.32 x10^3/uL (1.4-6.9); Basophil (Absolute #) 0.07 x10^3/uL (0-0.4); Eosinophil % 1.3 % (0.00-5.0); Eosinophil (Absolute #) 0.09 x10^3/uL (0-0.5); Hematocrit 42.1 % (42-50); IMMATURE GRAN # 0.03 x10^3u/L (0.00-0.03); IMMATURE GRAN % 0.4 % (0.00-0.4); Lymphocyte (Absolute #) 1.66 x10^3/uL (1.0-4.6); Lymphocytes % 23.7 % (24.0-44.0); Mean Cell Volume 89.2 fL (78-100); Mean Corpuscular Hemoglobin 29.7 pg (26-32); Mean Corpuscular Hgb Concent. 33.3 g/dL (32-36); Mean Platelet Volume 9.5 fL (7.5-11.0); Monocyte (Absolute #) 0.83 x10^3/uL (0.0-1.3); Monocytes % 11.9 % (0.0-12.0); Neutrophil % 61.7 % (36.0-66.0); Platelet Count 256 x10^3/uL (150-450); Red Blood Count 4.72 x10^6/uL (4.1-5.6); Red Cell Distribution Width 13.8 % (11.5-14.0)
[2023-04-05 14:25] LABS: ALBUMIN 4.5 g/dL (3.5-5.0); ALKALINE PHOSPHATASE 59 U/L (38-126); ANION GAP 16.7 MEQ/L (5-15); BLOOD UREA NITROGEN 46 mg/dL (9-20); CHLORIDE 100 mmol/L (98-107); Calcium 9.1 mg/dL (8.4-10.2); Carbon Dioxide 25 mmol/L (22-30); Creatinine 1 2.29 mg/dL (0.66-1.25); EST GLOMERULAR FILTRATION RATE 31.2 ML/MIN; ETHYL ALCOHOL < 10 mg/dL (0-10); Glucose 78 mg/dL (74-106); MAGNESIUM 2.4 mg/dL (1.6-2.3); Potassium 4.2 mmol/L (3.5-5.1); SGOT/AST 26 U/L (17-59); SGPT/ALT 31 U/L (0-50); SODIUM 137 mmol/L (137-145)
--- NOTE | 2023-04-05 14:36 | XRAY ---
Indication: Dizziness. Near syncope. Multiple contiguous axial images obtained through the head without contrast. Comparison: March 19, 2023 Stable age-appropriate global atrophy, minimal periventricular degenerative micro-ischemia, and tiny remote lacunar infarct left basal ganglia. No acute intracranial hemorrhage, abnormal extra axial fluid collection, or mass effect. Fourth ventricle is midline without hydrocephalus. Bony calvarium intact. Visualized paranasal sinuses and mastoid air cells are clear. Impression: No change compared to ER CT 2 weeks ago. Continued nonacute senile brain with remote lacunar infarct left basal ganglia.
[2023-04-05 14:44] LABS: INFLUENZA A NEGATIVE (NEGATIVE); INFLUENZA B NEGATIVE (NEGATIVE); RESPIRATORY SYNCTIAL VIRUS NEGATIVE (NEGATIVE); SARS-CoV-2 Xpert Express NEGATIVE (NEGATIVE)
[2023-04-05 15:20] LABS: Appearance Clear (Clear); Bilirubin Negative (Negative); Blood Negative (Negative); Glucose, Urine 250 mg/dL (Negative); Ketones Negative (Negative); Leukocyte Esterase Negative (Negative); Nitrite Negative (Negative); Ph 5.5 (4.6-8.0); Protein,Urine Dip Negative (Negative); RBC 0-2 /HPF (0-5); Urobilinogen 0.2 mg/dL (0.2); WBC 0-2 /HPF (0-5)
[2023-04-05 15:21] LABS: ADD URINE CULTURE? NO (NO); Bacteria Rare /HPF (None Seen); Epithelial Cells Rare /HPF (None Seen)
[2023-04-05] MEDS: Sodium Chloride 0.9% 500 ML 500 ML IV ONE (16:05)
[2023-04-05] MEDS ORDERED: Sodium Chloride 0.9% 500 ML 500 ML IV ONE (16:05)
[2023-04-05 16:20] VITALS: PULSE 66
[2023-04-05 17:05] VITALS: BP 112/45; O2SAT 94
== END 2023-04-05 17:05 | disposition home or self-care (01) ==
LOC: ED 13:12
DX: R42 Dizziness and giddiness (principal); I95.9 Hypotension, unspecified; I12.9 Hypertensive chronic kidney disease with stage 1 through stage 4 chronic kidney disease, or unspecified chronic kidney disease; E11.22 Type 2 diabetes mellitus with diabetic chronic kidney disease; N18.9 Chronic kidney disease, unspecified; E11.42 Type 2 diabetes mellitus with diabetic polyneuropathy; E78.5 Hyperlipidemia, unspecified; Z79.84 Long term (current) use of oral hypoglycemic drugs; Z79.4 Long term (current) use of insulin; Z79.85 Long-term (current) use of injectable non-insulin antidiabetic drugs; Z79.899 Other long term (current) drug therapy; Z20.828 Contact with and (suspected) exposure to other viral communicable diseases
CPT/HCPCS: 0241U; 36415; 70450; 80053; 81001; 82077; 82947; 83735; 84484; 85025; 93005; 96360; 96361; 99284

== ENCOUNTER 2023-05-07 05:19 | Emergency (ER) | payer MEDICARE ==
--- NOTE | 2023-05-07 05:26 | ERPHSYRPT ---
- History of Present Illness Historian: patient, EMS, old records Exam Limitations: no limitations Timing/Duration: today Quality: sharpness, stabbing Abdominal Pain Onset Location: RUQ Pain Radiation: back (Right side) Severity of Pain-Max: moderate Severity of Pain-Current: moderate Modifying Factors: Improves With: vomiting Previous symptoms: no prior history Hx Tetanus, Diphtheria Vaccination/Date Given: Yes Hx Influenza Vaccination/Date Given: No Hx Pneumococcal Vaccination/Date Given: No <JOSH LYNN - Last Filed: 05/07/23 06:41> <MAXINE GIBSON - Last Filed: 05/07/23 10:21> - History of Present Illness Time Seen by Provider: 05/07/23 05:26 Physician History: This is a 58-year-old white male patient of Dr. Horton who was brought to the emergency department by the ambulance service who provided independent history on this patient. Patient presents with initial right upper quadrant abdominal pain which radiated into his back that was severe. Patient did eat wright cobbler at approximately 1 AM this morning. The pain then radiated up into his chest. Patient had associated nausea and vomiting episodes. The chest pain has subsided but the right upper quadrant abdominal pain with radiation to his right back persists. Patient has a history of pancreatitis. Patient has a history of chronic renal disease but is not on dialysis. He has a history of panic disorder, COPD, peripheral vascular disease, peripheral neuropathy, g astroesophageal reflux disease, hyperlipidemia, diabetes and hypertension. 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 Bolanos. (JOSH LYNN) Allergies/Adverse Reactions: No Known Drug Allergies Allergy (Verified 05/07/23 05:46) Home Medications: Metformin HCl 1000 mg [Glucophage 1000 MG] 1,000 mg PO BID 05/17/15 [History] Nitroglycerin [Nitrostat] 0.4 mg SL Q5MIN PRN MR X 3 PRN 07/03/15 [History] Gabapentin [Neurontin] 600 mg PO BID 07/24/20 [History] Hydrochlorothiazide 25 mg [hydroDIURIL 25 MG] 12.5 mg PO DAILY 07/24/20 [History] Rosuvastatin Calcium [Crestor] 40 mg PO DAILY 07/24/20 [History] Buspirone HCl 5 mg [Buspar 5 mg] 5 mg PO BID 06/04/21 [History] Bumetanide 1 mg [Bumex 1 mg] 1 mg PO DAILY 12/18/22 [History] Dapagliflozin Propanediol [Farxiga] 10 mg PO DAILY 12/18/22 [History] Fluoxetine HCl [Prozac] 10 mg PO DAILY 12/18/22 [History] Insulin Lispro [Humalog Kwikpen U-100] 100 unit SQ UD 12/18/22 [History] PANTOPRAZOLE 40 mg Tablet [Protonix 40MG Tablet] 40 mg PO DAILY 12/18/22 [History] Potassium Chloride [Klor-Con 10] 10 meq PO BID 12/18/22 [History] Semaglutide [Ozempic] 2 mg SQ WEEKLY 12/18/22 [History] Lactulose [Lactulose 20 gm/30Ml Ud Cup] 10 gm PO BID 05/07/23 [History] Lisinopril 20 mg [Zestril 20 MG] 20 mg PO BID 05/07/23 [History] Spironolactone 25 mg [Aldactone 25 MG] 25 mg PO DAILY 05/07/23 [History] carvediloL [Carvedilol] 25 mg PO BID 05/07/23 [History] Travel Risk - International Travel Have you traveled outside of the country in past 3 weeks: No - Coronavirus Screening Are you exhibiting any of the following symptoms?: No Close contact with a COVID-19 positive Pt in past 14-21 Days: No - Vaccine Status Have you recieved a Covid-19 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: 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 - Vaccination Dates Date of 2cond Vaccination (if applicable): 2020 <JOSH LYNN - Last Filed: 05/07/23 06:41> - Review of Systems Constitutional: No Symptoms Eyes: No Symptoms Ears, Nose, & Throat: No Symptoms Respiratory: No Symptoms Cardiac: Chest Pain (Right upper quadrant all pain radiated into his right chest) Abdominal/Gastrointestinal: Abdominal Pain (Right upper quadrant abdominal pain), Nausea, Vomiting Musculoskeletal: No Symptoms Skin: No Symptoms Neurological: No Symptoms Psychological: No Symptoms Endocrine: No Symptoms Hematologic/Lymphatic: No Symptoms Immunological/Allergic: No Symptoms All Other Systems: Reviewed and Negative <JOSH LYNN - Last Filed: 05/07/23 06:41> - Past Medical History Pertinent Past Medical History: Yes Neurological History: Peripheral Neuropathy, Seizures ENT History: No Pertinent History Cardiac History: Coronary Artery Disease, High Cholesterol, Hypertension, Peripheral Vascular Disease Respiratory History: COPD, Sleep Apnea, Other Endocrine Medical History: Diabetes Type II Musculoskeletal History: Fractures, Osteoarthritis GI Medical History: Esophageal Disorder, GERD History: No Pertinent History Psycho-Social History: Depression, Panic Disorder Male Reproductive Disorders: Prostate Problems Other Medical History: SEIZURES A CHILD BUT NOT AN ADULT. COVID IN 2019. VACCINATED. FX LEFT FOREARM AND ANKLE A CHILD. HX GERD, PANCREATITIS, LOWER EXTREMITY CELLULITIS. HX ARTHROSCOPIC SURGERY LEFT KNEE FOR "CLEANING IT OUT" 2020 (BEFORE ) - Past Surgical History Past Surgical History: Yes Neuro Surgical History: No Pertinent History Cardiac: Cardiac Catheterization Respiratory: No Pertinent History Gastrointestinal: No Pertinent History Genitourinary: No Pertinent History Musculoskeletal: No Pertinent History Male Surgical History: No Pertinent History Other Surgical History: uvula removed. carpal tunnel right hand - Social History Smoking Status: Former smoker Exposure to second hand smoke: No Alcohol Use: None Drug Use: none Patient Lives Alone: Yes Significant Family History: heart disease, diabetes, hypertension <JOSH LYNN - Last Filed: 05/07/23 06:41> - Physical Exam General Appearance: mild distress, alert, anxiety Eye Exam: PERRL/EOMI, eyes nml inspection Ears, Nose, Throat Exam: normal ENT inspection, moist mucous membranes Neck Exam: normal inspection, non-tender, supple, full range of motion Respiratory Exam: normal breath sounds, lungs clear, airway intact, No chest tenderness, No respiratory distress Cardiovascular Exam: regular rate/rhythm, normal heart sounds, normal peripheral pulses Gastrointestinal/Abdomen Exam: soft, normal bowel sounds, tenderness (Right upper quadrant to palpation), guarding Rectal Exam: not done Back Exam: normal inspection, normal range of motion, No CVA tenderness, No vertebral tenderness Extremity Exam: normal inspection, normal range of motion, pelvis stable Neurologic Exam: alert, oriented x 3, cooperative, gettering operator II-XII nml as tested, normal mood/affect, nml cerebellar function, nml station & gait, sensation nml Skin Exam: normal color, warm, dry Lymphatic Exam: No adenopathy SpO2 Interpretation: normal <LYNNJOSH LisetZacarias - Last Filed: 05/07/23 06:41> - Nursing Vital Signs Nursing Vital Signs: Initial Vital Signs Temperature 97.0 F 05/07/23 05:29 Pulse Rate 75 05/07/23 05:29 Respiratory Rate 20 05/07/23 05:29 Blood Pressure 212/90 05/07/23 05:29 O2 Sat by Pulse Oximetry 99 05/07/23 05:29 Pain Scale Pain Intensity 2 - Course Nursing assessment & vital signs reviewed: Yes EKG Interpreted by Me: RATE (62), Sinus Rhythm, NORMAL AXIS, NORMAL INTERVALS, NORMAL QRS, NORMAL ST-T, Other (No acute ischemic changes on today's twelve-lead EKG.) <JOSH LYNN - Last Filed: 05/07/23 06:41> - CT Exams Abdomen/Pelvis CT Interpretation: Tele-radiologist Report (Small fat-containing bilateral inguinal hernias, duodenal diverticulum, spine degenerative changes MRI for f urther evaluation of spine) <MAXINE GIBSON - Last Filed: 05/07/23 10:21> Ordered Tests: Active Orders 24 hr Category Date Time Status EKG-ER Only STAT Care 05/07/23 05:29 Active IV Insertion STAT Care 05/07/23 05:29 Active ABDOMEN AND PELVIS W/0 CONTRAS [CT] Stat Exams 05/07/23 05:29 Completed AMYLASE Stat Lab 05/07/23 05:42 Completed CBC W DIFF Stat Lab 05/07/23 05:42 Completed CMP Stat Lab 05/07/23 05:42 Completed LIPASE Stat Lab 05/07/23 05:42 Completed TROPONIN Q4H Lab 05/07/23 05:42 Completed TROPONIN Q4H Lab 05/07/23 09:05 Completed TROPONIN Q4H Lab 05/07/23 13:30 Ordered UA W/RFX UR CULTURE Stat Lab 05/07/23 06:55 Completed Medication Summary Discontinued Medications Generic Name Dose Route Start Last Admin Trade Name Freq PRN Reason Stop Dose Admin Hydromorphone HCl 1 mg 05/07/23 05:29 05/07/23 05:36 Hydromorphone 1 Mg/1ml Inj IV 05/07/23 05:30 1 mg STAT ONE Administration Hydromorphone HCl Confirm 05/07/23 05:33 Hydromorphone 1 Mg/1ml Inj Administered 05/07/23 05:34 Dose 1 mg .ROUTE .STK-MED ONE Hydromorphone HCl 1 mg 05/07/23 07:29 05/07/23 07:32 Hydromorphone 1 Mg/1ml Inj IV 05/07/23 07:30 1 mg STAT ONE Administration Hydromorphone HCl Confirm 05/07/23 07:30 Hydromorphone 1 Mg/1ml Inj Administered 05/07/23 07:31 Dose 1 mg .ROUTE .STK-MED ONE Sodium Chloride 1,000 mls @ 999 mls/hr 05/07/23 05:29 05/07/23 06:49 Sodium Chloride 0.9% 1000 Ml IV 05/07/23 06:29 Infused .Q1H1M STA Infusion Sodium Chloride Confirm 05/07/23 05:33 Sodium Chloride 0.9% 1000 Ml Administered 05/07/23 05:34 Dose 1,000 mls @ ud .ROUTE .STK-MED ONE Sodium Chloride 1,000 mls @ 999 mls/hr 05/07/23 06:45 05/07/23 09:23 Sodium Chloride 0.9% 1000 Ml IV 05/07/23 07:45 Infused .Q1H1M STA Infusion Sodium Chloride Confirm 05/07/23 06:48 Sodium Chloride 0.9% 1000 Ml Administered 05/07/23 06:49 Dose 1,000 mls @ ud .ROUTE .STK-MED ONE Prochlorperazine Edisylate 5 mg 05/07/23 05:29 05/07/23 05:36 Prochlorperazine Edisylate 10 Mg/2 Ml Vial IV 05/07/23 05:30 5 mg STAT ONE Administration Prochlorperazine Edisylate Confirm 05/07/23 05:33 Prochlorperazine Edisylate 10 Mg/2 Ml Vial Administered 05/07/23 05:34 Dose 10 mg .ROUTE .STK-MED ONE Lab/Rad Data: Laboratory Result Diagrams 05/07/23 05:42 05/07/23 05:42 Laboratory Results 05/07/23 05/07/23 05/07/23 Range/Units 09:05 06:55 05:42 WBC (4.0-10.5) x10^3/uL RBC (4.1-5.6) x10^6/uL Hgb (12.5-18.0) g/dL Hct (42-50) % MCV (78-100) fL MCH (26-32) pg MCHC (32-36) g/dL RDW (11.5-14.0) % Plt Count (150-450) x10^3/uL MPV (7.5-11.0) fL Gran % (36.0-66.0) % Immature Gran % (Auto) (0.00-0.4) % Nucleat RBC Rel Count (0.00-0.1) % Eos # (Auto) (0-0.5) x10^3/uL Immature Gran # (Auto) (0.00-0.03) x10^3u/L Absolute Lymphs (auto) (1.0-4.6) x10^3/uL Absolute Monos (auto) (0.0-1.3) x10^3/uL Absolute Nucleated RBC (0.00-0.01) x10^3u/L Lymphocytes % (24.0-44.0) % Monocytes % (0.0-12.0) % Eosinophils % (0.00-5.0) % Basophils % (0.0-0.4) % Absolute Granulocytes (1.4-6.9) x10^3/uL Basophils # (0-0.4) x10^3/uL Sodium (137-145) mmol/L Potassium (3.5-5.1) mmol/L Chloride (98-107) mmol/L Carbon Dioxide (22-30) mmol/L Anion Gap (5-15) MEQ/L BUN (9-20) mg/dL Creatinine (0.66-1.25) mg/dL Estimated GFR ML/MIN Glucose (74-106) mg/dL Calcium (8.4-10.2) mg/dL Total Bilirubin (0.2-1.3) mg/dL AST (17-59) U/L ALT (0-50) U/L Alkaline Phosphatase (38-126) U/L Troponin I < 0.012 < 0.012 (0.000-0.034) ng/mL Serum Total Protein (6.3-8.2) g/dL Albumin (3.5-5.0) g/dL Amylase (30-110) U/L Lipase (23-300) U/L Urine Color Yellow (Yellow) Urine Appearance Clear (Clear) Urine pH 7.0 (4.6-8.0) Ur Specific [place] 1.020 (1.005-1.030) Urine Protein Trace A (Negative) Urine Glucose (UA) >=1000 A (Negative) mg/dL Urine Ketones Negative (Negative) Urine Blood Negative (Negative) Urine Nitrite Negative (Negative) Urine Bilirubin Negative (Negative) Urine Urobilinogen 1.0 A (0.2) mg/dL Ur Leukocyte Esterase Negative (Negative) U Hyaline Cast (Auto) NONE SEEN (0-2) /LPF Urine Microscopic RBC 0-2 (0-5) /HPF Urine Microscopic WBC 0-2 (0-5) /HPF Ur Epithelial Cells None Seen (None Seen) /HPF Urine Bacteria None Seen (None Seen) /HPF Urine Culture Reflexed NO (NO) 05/07/23 05/07/23 Range/Units 05:42 05:42 WBC 6.8 (4.0-10.5) x10^3/uL RBC 4.68 (4.1-5.6) x10^6/uL Hgb 14.1 (12.5-18.0) g/dL Hct 42.0 (42-50) % MCV 89.7 (78-100) fL MCH 30.1 (26-32) pg MCHC 33.6 (32-36) g/dL RDW 13.1 (11.5-14.0) % Plt Count 200 (150-450) x10^3/uL MPV 8.8 (7.5-11.0) fL Gran % 66.8 H (36.0-66.0) % Immature Gran % (Auto) 0.4 (0.00-0.4) % Nucleat RBC Rel Count 0.0 (0.00-0.1) % Eos # (Auto) 0.10 (0-0.5) x10^3/uL Immature Gran # (Auto) 0.03 (0.00-0.03) x10^3u/L Absolute Lymphs (auto) 1.55 (1.0-4.6) x10^3/uL Absolute Monos (auto) 0.54 (0.0-1.3) x10^3/uL Absolute Nucleated RBC 0.00 (0.00-0.01) x10^3u/L Lymphocytes % 22.8 L (24.0-44.0) % Monocytes % 7.9 (0.0-12.0) % Eosinophils % 1.5 (0.00-5.0) % Basophils % 0.6 (0.0-0.4) % Absolute Granulocytes 4.54 (1.4-6.9) x10^3/uL Basophils # 0.04 (0-0.4) x10^3/uL Sodium 138 (137-145) mmol/L Potassium 4.5 (3.5-5.1) mmol/L Chloride 101 (98-107) mmol/L Carbon Dioxide 27 (22-30) mmol/L Anion Gap 14.9 (5-15) MEQ/L BUN 18 (9-20) mg/dL Creatinine 1.12 (0.66-1.25) mg/dL Estimated GFR > 60.0 ML/MIN Glucose 140 H (74-106) mg/dL Calcium 8.9 (8.4-10.2) mg/dL Total Bilirubin 0.50 (0.2-1.3) mg/dL AST 22 (17-59) U/L ALT 25 (0-50) U/L Alkaline Phosphatase 55 (38-126) U/L Troponin I (0.000-0.034) ng/mL Serum Total Protein 7.3 (6.3-8.2) g/dL Albumin 4.4 (3.5-5.0) g/dL Amylase 69 (30-110) U/L Lipase 185 (23-300) U/L Urine Color (Yellow) Urine Appearance (Clear) Urine pH (4.6-8.0) Ur Specific [place] (1.005-1.030) Urine Protein (Negative) Urine Glucose (UA) (Negative) mg/dL Urine Ketones (Negative) Urine Blood (Negative) Urine Nitrite (Negative) Urine Bilirubin (Negative) Urine Urobilinogen (0.2) mg/dL Ur Leukocyte Esterase (Negative) U Hyaline Cast (Auto) (0-2) /LPF Urine Microscopic RBC (0-5) /HPF Urine Microscopic WBC (0-5) /HPF Ur Epithelial Cells (None Seen) /HPF Urine Bacteria (None Seen) /HPF Urine Culture Reflexed (NO) - Progress Progress: improved, pain not gone completely, re-examined Counseled pt/family regarding: lab results, diagnosis, need for follow-up, rad results <JOSH LYNN - Last Filed: 05/07/23 06:41> <MAXINE GIBSON - Last Filed: 05/07/23 10:21> - Progress Progress Note: 05/07/23 06:41 This patient's medical issue is 1 of at least moderate complexity. Level of complexity and the work-up performed is based on review of the patient's past medical history, review of the patient's medication list, review of the patient's drug allergy list, history of present illness and physical findings on examination. Work-up in this patient includes twelve-lead EKG, troponin level, amylase level, lipase level, CT scan of the abdomen pelvis without contrast, CBC and CMP. We will also provide the patient with 1 L intravenous normal saline infusion, 4 mg of Zofran infusion intravenously, and 1 mg of Dilaudid infusion intravenously. Transfer of care of this patient is to Dr. Gibson at shift change he will follow-up on the work-up results and make final disposition. (JOSH LYNN) 05/07/23 07:[address] Gibson at approximately [address] Gibson advised to follow- up on pending CAT scan. As of 7:30 AM the CAT scan is still not available. Patient reassessed at the bedside. Patient states his right flank pain is reoccurring. We ordered a second dose of Dilaudid. Patient's blood pressure is 209 systolic. Patient is due for his a.m. blood pressure medications. We will reassess blood pressure after pain is better controlled. Were hoping to have the CAT scan results soon to rule out the need for surgery so we can administer patient's a.m. blood pressure medications. 05/07/23 08:49 Patient reassessed. Patient is pain-free. Patient's blood pressure significantly improved. Systolic is 180 at this time after administration of his morning blood pressure medications. Laboratory work-up shows some glucosuria. CT scan shows small fat containing bilateral inguinal hernias, duodenal diverticulum, some spine arthritis otherwise negative. Patient states he is ready to go home. Patient voices no other complaints concerns at this time. Patient is a 58-year-old male presents to our ED earlier this morning for evaluation of nausea vomiting and some right upper quadrant pain. Patient initially evaluated by Dr. Lynn. Dr. Lynn endorsed patient to me at approximately 7 AM. Work-up completed minus CT scan. Work-up essentially nonremarkable. Testing includes EKG which revealed normal sinus rhythm. CT abdomen pelvis essentially nonremarkable. Ambulates lipase negative. CBC CMP essentially unremarkable. Mild hyperglycemia at 140. Troponin negative x2. Urinalysis reveals glucosuria. Patient asymptomatic at this time. Blood pressure trending downward as expected after administration of a.m. blood pressure medications. Patient received antinausea medication, Dilaudid 1 mg x 2 doses and 1 L normal saline x2. Will discharge home. Patient agrees to follow-up with his primary care doctor within 48 hours for reevaluation. Portions of this note were created with voice recognition technology. There may be grammatical, spelling, punctuation or sound alike errors Complexity of problems addressed is moderate acute complicated No critical care time Complexity data reviewed and analyzed is moderate. Test ordered. Test reviewed and analyzed. Clinical correlation made between history physical and imaging/laboratory findings. Patient reassessed. He is asymptomatic. No significant findings on work-up. Risk of complication and or risk morbidity/mortality of patient management is high. Patient received IV controlled medications pain control. We will discharge home. Plan of care established for shared decision making. Vital stable. Time spent to discharge patient is approximately 10 minutes. No social determinants of health present to impede follow-up. Patient requesting discharge at this time. He voices no other complaints or concerns at this time. 05/07/23 08:53 05/07/23 08:54 (MAXINE GIBSON) Medical Desision Making - Independent Historian Additional History obtained from: Customer Support Associate/EMT <JOSH LYNN - Last Filed: 05/07/23 06:41> - Departure Departure Disposition: Home Critical Care Time: No <JOSH LYNN - Last Filed: 05/07/23 06:41> <PAIGEMAXINE - Last Filed: 05/07/23 10:21> - Departure Clinical Impression: Right upper quadrant abdominal pain, Vomiting, Glucosuria, Small fat-containing bilateral inguinal , Duodenal diverticulum, Degenerative arthritis of spine Condition: Stable Referrals: BROOKLYN HORTON MD [Primary Care Provider] - Follow up/PCP as directed Additional Instructions: Discharge/Care Plan JORDAN SUH was seen on 05/07/23 in the Emergency Room. The patient was counseled regarding Diagnosis,Lab results, Imaging studies, need for follow up and when to return to the Emergency Room. Prescriptions given: Discharge Note I have spoken with the patient and/or caregivers. I have explained the patient's condition, diagnosis and treatment plan based on the information available to me at this time. I have answered the patient's and/or caregiver's questions and addressed any concerns. The patient and/or caregivers have as good understanding of the patient's diagnosis, condition and treatment plan as can be expected at this point. The vital signs have been stable. The patient's condition is stable and appropriate for discharge from the emergency department. The patient will pursue further outpatient evaluation with the primary care physician or other designated or consulting physician as outlined in the discharge instructions. The patient and/or caregivers are agreeable to this plan of care and follow-up instructions have been explained in detail. The patient and/or caregivers have received these instruction. The patient/and or caregivers are aware that any significant change in condition or worsening of symptoms should prompt an immediate return to this or the closest emergency department or call 911.
[2023-05-07] MEDS ORDERED: Compazine 10 MG/2 ML ONE (05:33)
[2023-05-07] MEDS ORDERED: Sodium Chloride 0.9% 1000 ML 1,000 ML ONE ×2 (05:33→06:48)
[2023-05-07] MEDS ORDERED: Hydromorphone 1 mg/ml Injection ONE ×2 (05:33→07:30)
[2023-05-07] MEDS: Sodium Chloride 0.9% 1000 ML 1,000 ML IV STA ×2 (05:35→06:49)
[2023-05-07] MEDS: Compazine 10 MG/2 ML IV ONE (05:36)
[2023-05-07] MEDS: Hydromorphone 1 mg/ml Injection IV ONE ×2 (05:36→07:32)
[2023-05-07 05:46] LABS: Absolute Neutrophil Ct (ANC) 4.54 x10^3/uL (1.4-6.9); BASOPHIL % 0.6 % (0.0-0.4); Basophil (Absolute #) 0.04 x10^3/uL (0-0.4); Eosinophil % 1.5 % (0.00-5.0); Hemoglobin 14.1 g/dL (12.5-18.0); IMMATURE GRAN # 0.03 x10^3u/L (0.00-0.03); IMMATURE GRAN % 0.4 % (0.00-0.4); Lymphocyte (Absolute #) 1.55 x10^3/uL (1.0-4.6); Lymphocytes % 22.8 % (24.0-44.0); Mean Cell Volume 89.7 fL (78-100); Mean Corpuscular Hemoglobin 30.1 pg (26-32); Mean Corpuscular Hgb Concent. 33.6 g/dL (32-36); Mean Platelet Volume 8.8 fL (7.5-11.0); Monocyte (Absolute #) 0.54 x10^3/uL (0.0-1.3); Monocytes % 7.9 % (0.0-12.0); Neutrophil % 66.8 % (36.0-66.0); Platelet Count 200 x10^3/uL (150-450); Red Blood Count 4.68 x10^6/uL (4.1-5.6); Red Cell Distribution Width 13.1 % (11.5-14.0); White Blood Count 6.8 x10^3/uL (4.0-10.5)
[2023-05-07 05:47] VITALS: TEMP 97
[2023-05-07 06:25] LABS: ALBUMIN 4.4 g/dL (3.5-5.0); ALKALINE PHOSPHATASE 55 U/L (38-126); AMYLASE 69 U/L (30-110); ANION GAP 14.9 MEQ/L (5-15); BLOOD UREA NITROGEN 18 mg/dL (9-20); CHLORIDE 101 mmol/L (98-107); Calcium 8.9 mg/dL (8.4-10.2); Carbon Dioxide 27 mmol/L (22-30); Creatinine 1 1.12 mg/dL (0.66-1.25); EST GLOMERULAR FILTRATION RATE > 60.0 ML/MIN; Glucose 140 mg/dL (74-106); LIPASE 185 U/L (23-300); Potassium 4.5 mmol/L (3.5-5.1); SGOT/AST 22 U/L (17-59); SGPT/ALT 25 U/L (0-50); SODIUM 138 mmol/L (137-145); Total Protein 7.3 g/dL (6.3-8.2)
[2023-05-07 07:33] VITALS: RESP 18
[2023-05-07 07:35] LABS: Appearance Clear (Clear); Bacteria None Seen /HPF (None Seen); Bilirubin Negative (Negative); Blood Negative (Negative); Epithelial Cells None Seen /HPF (None Seen); Glucose, Urine >=1000 mg/dL (Negative); Hyaline Casts NONE SEEN /LPF (0-2); Ketones Negative (Negative); Leukocyte Esterase Negative (Negative); Nitrite Negative (Negative); Protein,Urine Dip Trace (Negative); RBC 0-2 /HPF (0-5); WBC 0-2 /HPF (0-5)
[2023-05-07 07:39] LABS: ADD URINE CULTURE? NO (NO)
--- NOTE | 2023-05-07 08:19 | XRAY ---
CLINICAL HISTORY:RUQ ABD pain COMPARISON:09/18/2022 TECHNIQUE:Axial sections of CT abdomen and pelvis were obtained without administration of intravenous contrast. ;Reformatted coronal and sagittal images were acquired. FINDINGS: The liver is normal in size and attenuation. No discrete focal hepatic abnormality noted. No definite evidence of intrahepatic bile dilatation. Gallbladder is normally distended. No discrete radiopaque gallbladder calculus or evidence of acute cholecystitis. The spleen is normal in size. Multiple splenic granulomas are noted. Both adrenal glands appear unremarkable. Pancreas appears unremarkable. No definite evidence of acute pancreatitis. Both kidneys are normal in size. No renal calculus or obstructive uropathy. The urinary bladder is normally distended. No definite intravesical abnormality or abnormal wall thickening. The prostate is normal in size. Prostate size is normal. Small fat-containing bilateral inguinal hernias. The stomach is normally distended. Duodenal diverticulum measuring 2 x 2.4 cm, unchanged from prior CT. Visualized large and small bowel loops appear unremarkable. The appendix is separately visualized no definite evidence of acute appendicitis. No ascites or pneumoperitoneum. No significant abdominal or pelvic lymphadenopathy. Heart is normal in size. No pericardial effusion. No significant abnormality in the lung bases. Degenerative changes in the visualized bones with reduced disc space, endplate irregularity and disc osteophyte complex at L5-S1 level. MRI is suggested for further evaluation. No acute bony abnormality. IMPRESSION: No acute intra-abdominal pelvic pathology. No significant interval change from prior CT examination. Electronically Signed by: Carlitos Abbott MD. (05/07/2023 07:17:24 DINING SERVICE INSPECTOR)
[2023-05-07 10:11] VITALS: BP 173/79; PULSE 65; O2SAT 96
== END 2023-05-07 10:40 | disposition home or self-care (01) ==
LOC: ED 05:19
DX: R10.11 Right upper quadrant pain (principal); R11.2 Nausea with vomiting, unspecified; R81 Glycosuria; K40.20 Bilateral inguinal hernia, without obstruction or gangrene, not specified as recurrent; K57.10 Diverticulosis of small intestine without perforation or abscess without bleeding; M47.9 Spondylosis, unspecified; R07.9 Chest pain, unspecified; I12.9 Hypertensive chronic kidney disease with stage 1 through stage 4 chronic kidney disease, or unspecified chronic kidney disease; E11.22 Type 2 diabetes mellitus with diabetic chronic kidney disease; N18.9 Chronic kidney disease, unspecified; E11.42 Type 2 diabetes mellitus with diabetic polyneuropathy; E78.5 Hyperlipidemia, unspecified; Z79.84 Long term (current) use of oral hypoglycemic drugs; Z79.4 Long term (current) use of insulin; Z79.85 Long-term (current) use of injectable non-insulin antidiabetic drugs; Z79.899 Other long term (current) drug therapy
CPT/HCPCS: 36000; 36415; 74176; 80053; 81001; 82150; 83690; 84484; 85025; 93005; 96360; 96374; 96375; 96376; 99284; J1170

== ENCOUNTER 2023-05-13 10:02 | Observation (INO) | payer MEDICARE ==
--- NOTE | 2023-05-13 10:08 | ERPHSYRPT ---
- History of Present Illness Time Seen by Provider: 05/13/23 10:08 Source: patient, EMS, old records Exam Limitations: no limitations Physician History: This is a 58-year-old white male patient of Dr. 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 Bolanos who presents to the emergency department via ambulance secondary to a fall. Additional, independent history was obtained from the old charts and from the paramedics. This is the patient's fourth visit in approximately 2 months. Patient has a history of chronic renal failure not on dialysis, hyperlipidemia, COPD, panic disorder, peripheral vascular disease, peripheral neuropathy, diabetes and gastroesophageal reflux disease as well as hypertension. Patient states that he got up this morning felt dizzy lightheaded and fell hitting his head and neck left shoulder and right ribs. Upon entrance into the emergency department room his systolic blood pressures in the 70s. We performed orthostatic blood pressure readings as well as heart rate. Patient is orthostatic. There have been no new medications he denies chest pain. He denies abdominal pain he is not short of breath. He has not had a fever or co ugh. He has had no nausea vomiting diarrhea in the last several days. Occurred: just prior to arrival Reason for Fall: lightheaded, became dizzy Injuries/Pain Location: head, neck, upper extremity (Left shoulder) Loss of Consciousness: no loss of consciousness Severity of Pain-Max: mild (To moderate) Severity of Pain-Current: mild (To moderate) Associated Symptoms (Fall): dizziness, lightheadedness Allergies/Adverse Reactions: No Known Drug Allergies Allergy (Verified 05/13/23 10:05) Home Medications: Metformin HCl 1000 mg [Glucophage 1000 MG] 1,000 mg PO BID 05/17/15 [History] Nitroglycerin [Nitrostat] 0.4 mg SL Q5MIN PRN MR X 3 PRN 07/03/15 [History] Gabapentin [Neurontin] 600 mg PO BID 07/24/20 [History] Hydrochlorothiazide 25 mg [hydroDIURIL 25 MG] 12.5 mg PO DAILY 07/24/20 [History] Rosuvastatin Calcium [Crestor] 40 mg PO DAILY 07/24/20 [History] Buspirone HCl 5 mg [Buspar 5 mg] 5 mg PO BID 06/04/21 [History] Bumetanide 1 mg [Bumex 1 mg] 1 mg PO DAILY 12/18/22 [History] Dapagliflozin Propanediol [Farxiga] 10 mg PO DAILY 12/18/22 [History] Fluoxetine HCl [Prozac] 10 mg PO DAILY 12/18/22 [History] Insulin Lispro [Humalog Kwikpen U-100] 100 unit SQ UD 12/18/22 [History] PANTOPRAZOLE 40 mg Tablet [Protonix 40MG Tablet] 40 mg PO DAILY 12/18/22 [History] Potassium Chloride [Klor-Con 10] 10 meq PO BID 12/18/22 [History] Semaglutide [Ozempic] 2 mg SQ WEEKLY 12/18/22 [History] Lactulose [Lactulose 20 gm/30Ml Ud Cup] 10 gm PO BID 05/07/23 [History] Lisinopril 20 mg [Zestril 20 MG] 20 mg PO BID 05/07/23 [History] Spironolactone 25 mg [Aldactone 25 MG] 25 mg PO DAILY 05/07/23 [History] carvediloL [Carvedilol] 25 mg PO BID 05/07/23 [History] Hx Tetanus, Diphtheria Vaccination/Date Given: Yes Hx Influenza Vaccination/Date Given: No Hx Pneumococcal Vaccination/Date Given: No Travel Risk - International Travel Have you traveled outside of the country in past 3 weeks: No - Coronavirus Screening Are you exhibiting any of the following symptoms?: No Close contact with a COVID-19 positive Pt in past 14-21 Days: No - Vaccine Status Have you recieved a Covid-19 vaccination: Yes 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: [facility] - Vaccination Dates Date of 2cond Vaccination (if applicable): 2020 - Review of Systems Constitutional: Weakness Eyes: No Symptoms Ears, Nose, & Throat: No Symptoms Respiratory: No Symptoms Cardiac: No Symptoms Abdominal/Gastrointestinal: No Symptoms Genitourinary Symptoms: No Symptoms Musculoskeletal: No Symptoms Skin: No Symptoms Neurological: Dizziness, Other (Lightheaded) Psychological: No Symptoms Endocrine: No Symptoms Hematologic/Lymphatic: No Symptoms Immunological/Allergic: No Symptoms All Other Systems: Reviewed and Negative - Past Medical History Pertinent Past Medical History: Yes Neurological History: Peripheral Neuropathy, Seizures ENT History: No Pertinent History Cardiac History: Coronary Artery Disease, High Cholesterol, Hypertension, Peripheral Vascular Disease Respiratory History: COPD, Sleep Apnea, Other Endocrine Medical History: Diabetes Type II Musculoskeletal History: Fractures, Osteoarthritis GI Medical History: Esophageal Disorder, GERD History: No Pertinent History Psycho-Social History: Depression, Panic Disorder Male Reproductive Disorders: Prostate Problems Other Medical History: SEIZURES A CHILD BUT NOT AN ADULT. COVID IN 2019. VACCINATED. FX LEFT FOREARM AND ANKLE A CHILD. HX GERD, PANCREATITIS, LOWER EXTREMITY CELLULITIS. HX ARTHROSCOPIC SURGERY LEFT KNEE FOR "CLEANING IT OUT" 2020 (BEFORE ) - Past Surgical History Past Surgical History: Yes Neuro Surgical History: No Pertinent History Cardiac: Cardiac Catheterization Respiratory: No Pertinent History Gastrointestinal: No Pertinent History Genitourinary: No Pertinent History Musculoskeletal: No Pertinent History Male Surgical History: No Pertinent History Other Surgical History: uvula removed. carpal tunnel right hand - Social History Smoking Status: Former smoker Exposure to second hand smoke: No Alcohol Use: None Drug Use: none Patient Lives Alone: Yes Significant Family History: heart disease, diabetes, hypertension - Nursing Vital Signs Nursing Vital Signs: Initial Vital Signs Temperature 96.8 F 05/13/23 10:06 Pulse Rate 66 05/13/23 10:06 Respiratory Rate 16 05/13/23 10:06 Blood Pressure 79/33 05/13/23 10:06 O2 Sat by Pulse Oximetry 94 L 05/13/23 10:06 Pain Scale Pain Intensity 0 - [place] Coma Score Best Eye Response (Elena): (4) open spontaneously Best Verbal Response (Elena): (5) oriented Best Motor Response ([place]): (6) obeys commands [place] Total: 15 - Physical Exam General Appearance: no apparent distress, alert, anxiety Head Injury: no evidence of injury Eye Exam: PERRL/EOMI, eyes nml inspection ENT Exam: airway nml, nml ext.inspection, No evidence of ENT injury Neck Exam: supple, trachea midline, full range of motion, normal alignment, normal inspection Respiratory/Chest Exam: normal breath sounds, No chest tenderness, No respiratory distress, No ecchymosis, No crepitus Cardiovascular Exam: normal heart sounds, regular rate/rhythm Gastrointestinal Exam: soft, normal bowel sounds, No tenderness Back Exam: normal inspection, normal range of motion, No CVA tenderness, No vertebral tenderness Extremity Exam: normal inspection, normal range of motion, capillary refill <3 sec, pelvis stable Neurologic Exam: alert, oriented x 3, cooperative, sales engagement executive II-XII nml as tested, no rmal mood/affect, nml cerebellar function, nml station & gait, sensation nml Skin Exam: normal color, warm, dry SpO2 Interpretation: normal O2 Delivery: Room Air - Course Nursing assessment & vital signs reviewed: Yes Ordered Tests: Active Orders 24 hr Category Date Time Status Associate Dean Of Women STAT Care 05/13/23 10:26 Active EKG-ER Only STAT Care 05/13/23 10:25 Active IV Insertion STAT Care 05/13/23 10:25 Active Orthostatic Vital Signs STAT Care 05/13/23 10:25 Active Oxygen-ED Only Nasal Cannula 2 lpm Care 05/13/23 11:43 Active Pulse Oximetry (ED) STAT Care 05/13/23 10:25 Active cath [Cath for Specimen-Straight] STAT Care 05/13/23 12:28 Active CERVICAL SPINE WO CONTRAST [CT] Stat Exams 05/13/23 10:26 Completed HEAD WITHOUT CONTRAST [CT] Stat Exams 05/13/23 10:26 Completed RIBS UNILATERAL Stat Exams 05/13/23 10:26 Completed SHOULDER Stat Exams 05/13/23 10:27 Completed BLOOD CULTURE Stat Lab 05/13/23 11:24 Received CBC W DIFF Stat Lab 05/13/23 10:30 Completed CMP Stat Lab 05/13/23 10:21 Completed CULTURE,URINE Stat Lab 05/13/23 12:28 Received ETHYL ALCOHOL Stat Lab 05/13/23 10:21 Completed TROPONIN Q4H Lab 05/13/23 10:40 Completed TROPONIN Q4H Lab 05/13/23 15:45 Ordered TROPONIN Q4H Lab 05/13/23 19:45 Ordered TROPONIN Q4H Lab 05/13/23 23:45 Ordered UA W/RFX UR CULTURE Stat Lab 05/13/23 12:28 Completed Urine Triage Profile Stat Lab 05/13/23 12:28 Completed Medication Summary Discontinued Medications Generic Name Dose Route Start Last Admin Trade Name Freq PRN Reason Stop Dose Admin Sodium Chloride 1,000 mls @ 999 mls/hr 05/13/23 10:25 05/13/23 11:35 Sodium Chloride 0.9% 1000 Ml IV 05/13/23 11:25 Infused .Q1H1M STA Infusion Sodium Chloride Confirm 05/13/23 10:32 Sodium Chloride 0.9% 1000 Ml Administered 05/13/23 10:33 Dose 1,000 mls @ ud .ROUTE .STK-MED ONE Ondansetron HCl 4 mg 05/13/23 10:32 05/13/23 10:34 Ondansetron Hcl 4 Mg/2 Ml Vial IV 05/13/23 10:33 4 mg STAT ONE Administration Ondansetron HCl Confirm 05/13/23 10:32 Ondansetron Hcl 4 Mg/2 Ml Vial Administered 05/13/23 10:33 Dose 4 mg .ROUTE .STK-MED ONE Lab/Rad Data: Laboratory Result Diagrams 05/13/23 10:30 05/13/23 10:21 Laboratory Results 05/13/23 05/13/23 05/13/23 Range/Units 12:28 12:28 10:40 WBC (4.0-10.5) x10^3/uL RBC (4.1-5.6) x10^6/uL Hgb (12.5-18.0) g/dL Hct (42-50) % MCV (78-100) fL MCH (26-32) pg MCHC (32-36) g/dL RDW (11.5-14.0) % Plt Count (150-450) x10^3/uL MPV (7.5-11.0) fL Gran % (36.0-66.0) % Immature Gran % (Auto) (0.00-0.4) % Nucleat RBC Rel Count (0.00-0.1) % Eos # (Auto) (0-0.5) x10^3/uL Immature Gran # (Auto) (0.00-0.03) x10^3u/L Absolute Lymphs (auto) (1.0-4.6) x10^3/uL Absolute Monos (auto) (0.0-1.3) x10^3/uL Absolute Nucleated RBC (0.00-0.01) x10^3u/L Lymphocytes % (24.0-44.0) % Monocytes % (0.0-12.0) % Eosinophils % (0.00-5.0) % Basophils % (0.0-0.4) % Absolute Granulocytes (1.4-6.9) x10^3/uL Basophils # (0-0.4) x10^3/uL Sodium (137-145) mmol/L Potassium (3.5-5.1) mmol/L Chloride (98-107) mmol/L Carbon Dioxide (22-30) mmol/L Anion Gap (5-15) MEQ/L BUN (9-20) mg/dL Creatinine (0.66-1.25) mg/dL Estimated GFR ML/MIN Glucose (74-106) mg/dL Calcium (8.4-10.2) mg/dL Total Bilirubin (0.2-1.3) mg/dL AST (17-59) U/L ALT (0-50) U/L Alkaline Phosphatase (38-126) U/L Troponin I < 0.012 (0.000-0.034) ng/mL Serum Total Protein (6.3-8.2) g/dL Albumin (3.5-5.0) g/dL Urine Color Dark Yellow (Yellow) Urine Appearance Cloudy A (Clear) Urine pH 5.0 (4.6-8.0) Ur Specific [place] 1.020 (1.005-1.030) Urine Protein 100 A (Negative) Urine Glucose (UA) >=1000 A (Negative) mg/dL Urine Ketones Trace A (Negative) Urine Blood Negative (Negative) Urine Nitrite Negative (Negative) Urine Bilirubin Negative (Negative) Urine Urobilinogen 1.0 A (0.2) mg/dL Ur Leukocyte Esterase Negative (Negative) Urine Microscopic RBC 0-2 (0-5) /HPF Urine Microscopic WBC 3-5 (0-5) /HPF Ur Epithelial Cells Many A (None Seen) /HPF Urine Bacteria None Seen (None Seen) /HPF Urine Culture Reflexed ORDERED SEPARATELY (NO) Urine Opiates Level NEGATIVE (NEGATIVE) Ur Methadone NEGATIVE (NEGATIVE) Urine Barbiturates NEGATIVE (NEGATIVE) Ur Phencyclidine (PCP) NEGATIVE (NEGATIVE) Urine Amphetamine NEGATIVE (NEGATIVE) U Benzodiazepine Level NEGATIVE (NEGATIVE) Urine Cocaine NEGATIVE (NEGATIVE) Urine Marijuana (THC) NEGATIVE (NEGATIVE) Ethyl Alcohol (0-10) mg/dL 05/13/23 05/13/23 Range/Units 10:30 10:21 WBC 10.4 (4.0-10.5) x10^3/uL RBC 4.44 (4.1-5.6) x10^6/uL Hgb 13.2 (12.5-18.0) g/dL Hct 40.1 L (42-50) % MCV 90.3 (78-100) fL MCH 29.7 (26-32) pg MCHC 32.9 (32-36) g/dL RDW 13.1 (11.5-14.0) % Plt Count 237 (150-450) x10^3/uL MPV 9.4 (7.5-11.0) fL Gran % 74.7 H (36.0-66.0) % Immature Gran % (Auto) 0.8 H (0.00-0.4) % Nucleat RBC Rel Count 0.0 (0.00-0.1) % Eos # (Auto) 0.10 (0-0.5) x10^3/uL Immature Gran # (Auto) 0.08 H (0.00-0.03) x10^3u/L Absolute Lymphs (auto) 1.12 (1.0-4.6) x10^3/uL Absolute Monos (auto) 1.29 (0.0-1.3) x10^3/uL Absolute Nucleated RBC 0.00 (0.00-0.01) x10^3u/L Lymphocytes % 10.7 L (24.0-44.0) % Monocytes % 12.4 H (0.0-12.0) % Eosinophils % 1.0 (0.00-5.0) % Basophils % 0.4 (0.0-0.4) % Absolute Granulocytes 7.80 H (1.4-6.9) x10^3/uL Basophils # 0.04 (0-0.4) x10^3/uL Sodium 132 L (137-145) mmol/L Potassium 4.7 (3.5-5.1) mmol/L Chloride 93 L (98-107) mmol/L Carbon Dioxide 22 (22-30) mmol/L Anion Gap 21.2 H (5-15) MEQ/L BUN 52 H (9-20) mg/dL Creatinine 3.96 H (0.66-1.25) mg/dL Estimated GFR 16.6 ML/MIN Glucose 94 (74-106) mg/dL Calcium 8.9 (8.4-10.2) mg/dL Total Bilirubin 0.80 (0.2-1.3) mg/dL AST 21 (17-59) U/L ALT 19 (0-50) U/L Alkaline Phosphatase 65 (38-126) U/L Troponin I (0.000-0.034) ng/mL Serum Total Protein 7.5 (6.3-8.2) g/dL Albumin 3.9 (3.5-5.0) g/dL Urine Color (Yellow) Urine Appearance (Clear) Urine pH (4.6-8.0) Ur Specific [place] (1.005-1.030) Urine Protein (Negative) Urine Glucose (UA) (Negative) mg/dL Urine Ketones (Negative) Urine Blood (Negative) Urine Nitrite (Negative) Urine Bilirubin (Negative) Urine Urobilinogen (0.2) mg/dL Ur Leukocyte Esterase (Negative) Urine Microscopic RBC (0-5) /HPF Urine Microscopic WBC (0-5) /HPF Ur Epithelial Cells (None Seen) /HPF Urine Bacteria (None Seen) /HPF Urine Culture Reflexed (NO) Urine Opiates Level (NEGATIVE) Ur Methadone (NEGATIVE) Urine Barbiturates (NEGATIVE) Ur Phencyclidine (PCP) (NEGATIVE) Urine Amphetamine (NEGATIVE) U Benzodiazepine Level (NEGATIVE) Urine Cocaine (NEGATIVE) Urine Marijuana (THC) (NEGATIVE) Ethyl Alcohol < 10 (0-10) mg/dL - Progress Progress: improved, re-examined Progress Note: 05/13/23 12:38 CT scan of the head shows a stable nonacute senile brain with remote lacunar infarct of the left basal ganglia. This study is without contrast. CT scan of the cervical spine without contrast shows no acute fracture or subluxation. There are degenerative changes noted. X-ray of the left shoulder was interpreted by me. There is no evidence of any acute fracture or dislocation. There are degenerative changes. X-ray of the right ribs was interpreted by me. There is no evidence of any acute rib fractures or underlying pulmonary abnormality. The CT scans were interpreted by the radiologist and I reviewed the interpretation. This patient's medical issue is 1 of high complexity. The level of complexity and the work-up performed was based on review of the patient's past medical history, review of the patient's medication list, review of the patient's drug allergy list, history of present illness, physical findings on examination. The work-up in this patient includes intravenous line placement, infusion of 1 L normal saline solution, urinalysis, twelve-lead EKG, CBC, CMP, troponin level, blood alcohol level, urine triage profile. We are awaiting the troponin level and a urine triage profile as well as a urinalysis study. There are no acute emergent findings on the radiographic studies. However, this patient has been seen in our emergency room 4 times in the last 2 months. Once for weakness, once for dizziness, once for abdominal pain and today for syncope with orthostatic hypotension. I did speak with Dr. Guidry, our telehospitalist on- call today. I gave him a brief overview of the patient's history physical findings and portion of the lab data. He also feels this patient should be admitted in the hospital. I will contact him a second time once we get the entire work-up completed. I discussed this with the patient and he is agreeable to be admitted into the hospital. Counseled pt/family regarding: lab results, diagnosis, rad results Medical Desision Making - Independent Historian Additional History obtained from: Swimming Coach/EMT - External Record(s) Reviewed Records reviewed as a part of evaluation & management: Discharge Summary - Discussion of managment Care discussed with:: hospitalist Reviewed:: Test results, Need for additional workup Agreed on:: Treatment plan, decision to admit Will see patient: in hospital - Diagnostic Testing Diagnostic test were ordered, analyzed, and reviewed by me: Yes Radiological Interpretation: Interpreted by me, Reviewed by me, Teleradiologist Report - Risk of complications The pt has a high risk of morbidity or mortality based on: Decision regarding hospitilization or escalation of hosp level of care - Departure Departure Disposition: In-patient Admission Clinical Impression: Orthostatic hypotension, Dizziness, Syncope and collapse, Acute on chronic renal failure Condition: Stable Critical Care Time: Yes Critical Care Time(excluding separately billable procedures): Critical 30-74 mins (45) Referrals: BROOKLYN HORTON MD [Primary Care Provider] - Follow up/PCP as directed
[2023-05-13] MEDS ORDERED: Sodium Chloride 0.9% 1000 ML 1,000 ML IV STA (10:25)
[2023-05-13] MEDS ORDERED: Zofran 4 MG/2 ML VIAL IV ONE (10:32)
[2023-05-13] MEDS ORDERED: Zofran 4 MG/2 ML VIAL ONE (10:32)
[2023-05-13] MEDS ORDERED: Sodium Chloride 0.9% 1000 ML 1,000 ML ONE (10:32)
[2023-05-13 10:40] LABS: BASOPHIL % 0.4 % (0.0-0.4); Basophil (Absolute #) 0.04 x10^3/uL (0-0.4); Hematocrit 40.1 % (42-50); Hemoglobin 13.2 g/dL (12.5-18.0); IMMATURE GRAN # 0.08 x10^3u/L (0.00-0.03); IMMATURE GRAN % 0.8 % (0.00-0.4); Lymphocyte (Absolute #) 1.12 x10^3/uL (1.0-4.6); Lymphocytes % 10.7 % (24.0-44.0); Mean Cell Volume 90.3 fL (78-100); Mean Corpuscular Hemoglobin 29.7 pg (26-32); Mean Corpuscular Hgb Concent. 32.9 g/dL (32-36); Mean Platelet Volume 9.4 fL (7.5-11.0); Monocyte (Absolute #) 1.29 x10^3/uL (0.0-1.3); Monocytes % 12.4 % (0.0-12.0); Neutrophil % 74.7 % (36.0-66.0); Platelet Count 237 x10^3/uL (150-450); Red Blood Count 4.44 x10^6/uL (4.1-5.6); Red Cell Distribution Width 13.1 % (11.5-14.0); White Blood Count 10.4 x10^3/uL (4.0-10.5)
[2023-05-13 10:54] LABS: ALBUMIN 3.9 g/dL (3.5-5.0); ALKALINE PHOSPHATASE 65 U/L (38-126); ANION GAP 21.2 MEQ/L (5-15); BLOOD UREA NITROGEN 52 mg/dL (9-20); CHLORIDE 93 mmol/L (98-107); Calcium 8.9 mg/dL (8.4-10.2); Carbon Dioxide 22 mmol/L (22-30); Creatinine 1 3.96 mg/dL (0.66-1.25); EST GLOMERULAR FILTRATION RATE 16.6 ML/MIN; ETHYL ALCOHOL < 10 mg/dL (0-10); Glucose 94 mg/dL (74-106); Potassium 4.7 mmol/L (3.5-5.1); SGOT/AST 21 U/L (17-59); SGPT/ALT 19 U/L (0-50); SODIUM 132 mmol/L (137-145); Total Protein 7.5 g/dL (6.3-8.2)
--- NOTE | 2023-05-13 10:54 | XRAY ---
Indication: Head injury days ago. Multiple contiguous axial images obtained through the head without contrast. Comparison: April 05, 2023 Again age-appropriate global atrophy, minimal periventricular degenerative micro-ischemia, and tiny remote lacunar infarct left basal ganglia. No acute intracranial hemorrhage, abnormal extra-axial fluid collection, or mass effect. Fourth ventricle is midline without hydrocephalus. Bony calvarium intact. Visualized paranasal sinuses and mastoid air cells are clear. Impression: Stable nonacute senile brain with remote lacunar infarct left basal ganglia.
--- NOTE | 2023-05-13 10:59 | XRAY ---
Indication: Head injury days ago. Multiple contiguous images obtained through the cervical spine. Sagittal and coronal reformatted images obtained. Comparison: None Axial images negative for acute fracture, suspicious bony lesions, or spinal canal stenosis. Mild multilevel bilateral degenerative facet hypertrophy, right greater than left. Sagittal and coronal reformatted images demonstrates lordotic straightening, positional versus paraspinal spasm. Vertebral body heights/disc spaces maintained. No acute compression fracture, subluxation, or jumped facet. Normal appearing craniocervical junction. Visualized noncontrasted soft tissues demonstrates mild bilateral carotid calcifications. Lung apices unremarkable. Impression: Cervical lordotic straightening, positional versus paraspinal spasm. Negative for acute fracture/subluxation. Mild multilevel bilateral degenerative facet hypertrophy and mild bilateral carotid calcifications.
--- NOTE | 2023-05-13 11:51 | XRAY ---
Indication: Pain following fall. Comparison: None 2 view right ribs demonstrates moderate AC/mild glenohumeral degenerative changes, minimal/mild multilevel degenerative spondylosis, and CT proven tiny remote fracture tip right L2 transverse process. No other bony, articular, or soft tissue abnormalities.
--- NOTE | 2023-05-13 11:51 | XRAY ---
Indication: Pain following fall. Comparison: None 3 view left shoulder demonstrates moderate AC/mild glenohumeral degenerative changes and minimal/mild multilevel degenerative spondylosis. No other bony, articular, or soft tissue abnormalities.
[2023-05-13 12:52] LABS: Appearance Cloudy (Clear); Bacteria None Seen /HPF (None Seen); Bilirubin Negative (Negative); Blood Negative (Negative); Epithelial Cells Many /HPF (None Seen); Glucose, Urine >=1000 mg/dL (Negative); Ketones Trace (Negative); Leukocyte Esterase Negative (Negative); Nitrite Negative (Negative); Protein,Urine Dip 100 (Negative); RBC 0-2 /HPF (0-5)
[2023-05-13 12:56] LABS: Amphetamine,Urine NEGATIVE (NEGATIVE); Barbiturate,Urine NEGATIVE (NEGATIVE); Benzodiazepine,Urine NEGATIVE (NEGATIVE); Cocaine,Urine NEGATIVE (NEGATIVE); Methadone,Urine NEGATIVE (NEGATIVE); Opiate,Urine NEGATIVE (NEGATIVE); PCP,Urine NEGATIVE (NEGATIVE); THC,Urine NEGATIVE (NEGATIVE)
[2023-05-13 13:02] LABS: ADD URINE CULTURE? ORDERED SEPARATELY (NO)
[2023-05-13] MEDS ORDERED: Zofran 4 MG/2 ML VIAL IV PRN (13:27)
[2023-05-13] MEDS ORDERED: HUMULIN R SQ PRN (13:27)
[2023-05-13] MEDS ORDERED: TYLENOL 325 MG PO PRN (13:27)
--- NOTE | 2023-05-13 13:40 | PCM.HP ---
<FRANCISCO MENDEZ - Last Filed: 05/13/23 15:21> History of Present Illness - Chief Complaint Chief Complaint: Dizziness/Falls Date: 05/13/23 History of Present Illness: is a 58 year old male with a pmhx of CKD, HLD, COPD, Panic disorder, PVD, peripheral neuropathy, DM, GERD, HTN, and recurrent falls (with multiple ER visits/hospitalizations) presented to the ER 05/13/2023 with complaints of dizziness that resulted in a ground-level fall. Patient endorses hitting his head, neck, left shoulder, and right ribs. Denies LOC. He reports this was the fourth or fifth time he fell that day. Additionally, he states that he has had "stomach issues" and acid reflux and has not been consuming solid foods since last , but he is drinking normal amounts. He manages his DM with an insulin pumps and states he checks his blood glucose levels often and they have been ranging around 110-120. In ER, patient was hypotensive with BP in the 70's, orthostatic vitals were positive. CT of the cervical spine, XR of the left should and ribs were negative for acute findings. 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 Lab interpretation remarkable for sodium at 132, anion gap at 21.2, Bun at 52, and creat at 3.96. UDS of note was negative. PCP: Dr. Horton Cardiology: Dr. Paiz Code Status: Full code - Review of Systems Constitutional: No Symptoms Eyes: No Symptoms Ears, Nose, & Throat: No Symptoms Respiratory: Short Of Breath (with exertion of 100 yards or greater) Abdominal/Gastrointestinal: Appetite Changes (secondary to GERD) Genitourinary Symptoms: No Symptoms Musculoskeletal: No Symptoms Skin: No Symptoms Neurological: Dizziness (mostly from sitting to standing and positional changes, denies "room spinning" sensation) Psychological: No Symptoms Endocrine: No Symptoms Hematologic/Lymphatic: No Symptoms All Other Systems: Reviewed and Negative Medications & Allergies Home Medications: Home Medication List Metformin HCl 1000 mg [Glucophage 1000 MG] 1,000 mg PO BID 05/17/15 [History Confirmed 05/13/23] Nitroglycerin [Nitrostat] 0.4 mg SL Q5MIN PRN MR X 3 PRN 07/03/15 [History Confirmed 05/13/23] Gabapentin [Neurontin] 600 mg PO BID 07/24/20 [History Confirmed 05/13/23] Hydrochlorothiazide 25 mg [hydroDIURIL 25 MG] 12.5 mg PO DAILY 07/24/20 [History Confirmed 05/13/23] Rosuvastatin Calcium [Crestor] 40 mg PO DAILY 07/24/20 [History Confirmed 05/13/23] Buspirone HCl 5 mg [Buspar 5 mg] 5 mg PO BID 06/04/21 [History Confirmed 05/13/23] Bumetanide 1 mg [Bumex 1 mg] 1 mg PO DAILY 12/18/22 [History Confirmed 05/13/23] Dapagliflozin Propanediol [Farxiga] 10 mg PO DAILY 12/18/22 [History Confirmed 05/13/23] Fluoxetine HCl [Prozac] 10 mg PO DAILY 12/18/22 [History Confirmed 05/13/23] Insulin Lispro [Humalog Kwikpen U-100] 100 unit SQ UD 12/18/22 [History Confirmed 05/13/23] PANTOPRAZOLE 40 mg Tablet [Protonix 40MG Tablet] 40 mg PO DAILY 12/18/22 [History Confirmed 05/13/23] Potassium Chloride [Klor-Con 10] 10 meq PO BID 12/18/22 [History Confirmed 05/13/23] Semaglutide [Ozempic] 2 mg SQ WEEKLY 12/18/22 [History Confirmed 05/13/23] Lactulose [Lactulose 20 gm/30Ml Ud Cup] 10 gm PO BIDPRN PRN 05/07/23 [History Confirmed 05/13/23] Lisinopril 20 mg [Zestril 20 MG] 20 mg PO BID 05/07/23 [History Confirmed 05/13/23] Spironolactone 25 mg [Aldactone 25 MG] 25 mg PO DAILY 05/07/23 [History Confirmed 05/13/23] carvediloL [Carvedilol] 25 mg PO BID 05/07/23 [History Confirmed 05/13/23] Allergies/Adverse Reactions: Allergies Allergy/AdvReac Type Severity Reaction Status Date / Time No Known Drug Allergies Allergy Verified 05/13/23 10:05 - Past Medical History Past Medical History: Yes Neurological History: Peripheral Neuropathy, Seizures ENT History: No Pertinent History Cardiac History: Coronary Artery Disease, High Cholesterol, Hypertension, Peripheral Vascular Disease Respiratory History: COPD, Sleep Apnea, Other Endocrine Medical History: Diabetes Type II Musculoskelatal History: Fractures, Osteoarthritis GI Medical History: Esophageal Disorder, GERD History: No Pertinent History Pyscho-Social History: Depression, Panic Disorder Male Reproductive Disorders: Prostate Problems Comment: SEIZURES A CHILD BUT NOT AN ADULT. COVID IN 2019. VACCINATED. FX LEFT FOREARM AND ANKLE A CHILD. HX GERD, PANCREATITIS, LOWER EXTREMITY CELLULITIS. HX ARTHROSCOPIC SURGERY LEFT KNEE FOR "CLEANING IT OUT" 2020 (BEFORE ) - Past Surgical History Past Surgical History: Yes Neuro Surgical History: No Pertinent History Cardiac History: Cardiac Catheterization Respiratory Surgery: No Pertinent History GI Surgical History: No Pertinent History Genitourinary Surgical Hx: No Pertinent History Musculskeletal Surgical Hx: No Pertinent History Male Surgical History: No Pertinent History Other Surgical History: uvula removed. carpal tunnel right hand - Social History Smoking Status: Former smoker Exposure to second hand smoke: No Alcohol: None Drug Use: none Significant Family History: heart disease, diabetes, hypertension - Physical Exam Vital Signs: Vital Signs - 24 hr Temp Pulse Resp BP Pulse Ox 05/13/23 13:01 64 16 122/68 97 05/13/23 12:15 68 18 99 05/13/23 11:53 67 129/64 95 05/13/23 10:30 92 L 05/13/23 10:06 96.8 F 66 16 79/33 94 L General Appearance: no apparent distress Neurologic Exam: oriented x 3 Ears, Nose, Throat Exam: normal ENT inspection Neck Exam: normal inspection Respiratory Exam: normal breath sounds Cardiovascular Exam: regular rate/rhythm Gastrointestinal/Abdomen Exam: soft, normal bowel sounds Extremity Exam: normal inspection Skin Exam: normal color Results - Labs Lab/Micro Results: Lab Results-Last 24 Hours 05/13/23 05/13/23 05/13/23 Range/Units 10:21 10:30 10:40 WBC 10.4 (4.0-10.5) x10^3/uL RBC 4.44 (4.1-5.6) x10^6/uL Hgb 13.2 (12.5-18.0) g/dL Hct 40.1 L (42-50) % MCV 90.3 (78-100) fL MCH 29.7 (26-32) pg MCHC 32.9 (32-36) g/dL RDW 13.1 (11.5-14.0) % Plt Count 237 (150-450) x10^3/uL MPV 9.4 (7.5-11.0) fL Gran % 74.7 H (36.0-66.0) % Immature Gran % (Auto) 0.8 H (0.00-0.4) % Nucleat RBC Rel Count 0.0 (0.00-0.1) % Eos # (Auto) 0.10 (0-0.5) x10^3/uL Immature Gran # (Auto) 0.08 H (0.00-0.03) x10^3u/L Absolute Lymphs (auto) 1.12 (1.0-4.6) x10^3/uL Absolute Monos (auto) 1.29 (0.0-1.3) x10^3/uL Absolute Nucleated RBC 0.00 (0.00-0.01) x10^3u/L Lymphocytes % 10.7 L (24.0-44.0) % Monocytes % 12.4 H (0.0-12.0) % Eosinophils % 1.0 (0.00-5.0) % Basophils % 0.4 (0.0-0.4) % Absolute Granulocytes 7.80 H (1.4-6.9) x10^3/uL Basophils # 0.04 (0-0.4) x10^3/uL Sodium 132 L (137-145) mmol/L Potassium 4.7 (3.5-5.1) mmol/L Chloride 93 L (98-107) mmol/L Carbon Dioxide 22 (22-30) mmol/L Anion Gap 21.2 H (5-15) MEQ/L BUN 52 H (9-20) mg/dL Creatinine 3.96 H (0.66-1.25) mg/dL Estimated GFR 16.6 ML/MIN Glucose 94 (74-106) mg/dL Calcium 8.9 (8.4-10.2) mg/dL Total Bilirubin 0.80 (0.2-1.3) mg/dL AST 21 (17-59) U/L ALT 19 (0-50) U/L Alkaline Phosphatase 65 (38-126) U/L Troponin I < 0.012 (0.000-0.034) ng/mL Serum Total Protein 7.5 (6.3-8.2) g/dL Albumin 3.9 (3.5-5.0) g/dL Urine Color (Yellow) Urine Appearance (Clear) Urine pH (4.6-8.0) Ur Specific [place] (1.005-1.030) Urine Protein (Negative) Urine Glucose (UA) (Negative) mg/dL Urine Ketones (Negative) Urine Blood (Negative) Urine Nitrite (Negative) Urine Bilirubin (Negative) Urine Urobilinogen (0.2) mg/dL Ur Leukocyte Esterase (Negative) Urine Microscopic RBC (0-5) /HPF Urine Microscopic WBC (0-5) /HPF Ur Epithelial Cells (None Seen) /HPF Urine Bacteria (None Seen) /HPF Urine Culture Reflexed (NO) Urine Opiates Level (NEGATIVE) Ur Methadone (NEGATIVE) Urine Barbiturates (NEGATIVE) Ur Phencyclidine (PCP) (NEGATIVE) Urine Amphetamine (NEGATIVE) U Benzodiazepine Level (NEGATIVE) Urine Cocaine (NEGATIVE) Urine Marijuana (THC) (NEGATIVE) Ethyl Alcohol < 10 (0-10) mg/dL 05/13/23 05/13/23 Range/Units 12:28 12:28 WBC (4.0-10.5) x10^3/uL RBC (4.1-5.6) x10^6/uL Hgb (12.5-18.0) g/dL Hct (42-50) % MCV (78-100) fL MCH (26-32) pg MCHC (32-36) g/dL RDW (11.5-14.0) % Plt Count (150-450) x10^3/uL MPV (7.5-11.0) fL Gran % (36.0-66.0) % Immature Gran % (Auto) (0.00-0.4) % Nucleat RBC Rel Count (0.00-0.1) % Eos # (Auto) (0-0.5) x10^3/uL Immature Gran # (Auto) (0.00-0.03) x10^3u/L Absolute Lymphs (auto) (1.0-4.6) x10^3/uL Absolute Monos (auto) (0.0-1.3) x10^3/uL Absolute Nucleated RBC (0.00-0.01) x10^3u/L Lymphocytes % (24.0-44.0) % Monocytes % (0.0-12.0) % Eosinophils % (0.00-5.0) % Basophils % (0.0-0.4) % Absolute Granulocytes (1.4-6.9) x10^3/uL Basophils # (0-0.4) x10^3/uL Sodium (137-145) mmol/L Potassium (3.5-5.1) mmol/L Chloride (98-107) mmol/L Carbon Dioxide (22-30) mmol/L Anion Gap (5-15) MEQ/L BUN (9-20) mg/dL Creatinine (0.66-1.25) mg/dL Estimated GFR ML/MIN Glucose (74-106) mg/dL Calcium (8.4-10.2) mg/dL Total Bilirubin (0.2-1.3) mg/dL AST (17-59) U/L ALT (0-50) U/L Alkaline Phosphatase (38-126) U/L Troponin I (0.000-0.034) ng/mL Serum Total Protein (6.3-8.2) g/dL Albumin (3.5-5.0) g/dL Urine Color Dark Yellow (Yellow) Urine Appearance Cloudy A (Clear) Urine pH 5.0 (4.6-8.0) Ur Specific [place] 1.020 (1.005-1.030) Urine Protein 100 A (Negative) Urine Glucose (UA) >=1000 A (Negative) mg/dL Urine Ketones Trace A (Negative) Urine Blood Negative (Negative) Urine Nitrite Negative (Negative) Urine Bilirubin Negative (Negative) Urine Urobilinogen 1.0 A (0.2) mg/dL Ur Leukocyte Esterase Negative (Negative) Urine Microscopic RBC 0-2 (0-5) /HPF Urine Microscopic WBC 3-5 (0-5) /HPF Ur Epithelial Cells Many A (None Seen) /HPF Urine Bacteria None Seen (None Seen) /HPF Urine Culture Reflexed ORDERED SEPARATELY (NO) Urine Opiates Level NEGATIVE (NEGATIVE) Ur Methadone NEGATIVE (NEGATIVE) Urine Barbiturates NEGATIVE (NEGATIVE) Ur Phencyclidine (PCP) NEGATIVE (NEGATIVE) Urine Amphetamine NEGATIVE (NEGATIVE) U Benzodiazepine Level NEGATIVE (NEGATIVE) Urine Cocaine NEGATIVE (NEGATIVE) Urine Marijuana (THC) NEGATIVE (NEGATIVE) Ethyl Alcohol (0-10) mg/dL - Radiology Impressions Radiology Exams & Impressions: Radiology Procedures Category Date Time Status CERVICAL SPINE WO CONTRAST [CT] Stat Exams 05/13/23 10:26 Completed HEAD WITHOUT CONTRAST [CT] Stat Exams 05/13/23 10:26 Completed RIBS UNILATERAL Stat Exams 05/13/23 10:26 Completed SHOULDER Stat Exams 05/13/23 10:27 Completed - Other Procedures and Tests Respiratory Therapy 05/13/23 13:27 EKG REPEAT IN AM Assessment/Plan (1) Acute on chronic renal failure Current Visit: Yes Status: Chronic Assessment & Plan: -Most likely secondary to hypovolemia, nephrotoxic medications, plan for gentle hydration, hold nephrotoxic agents/avoid ACEI/ARBs/Diuretics/ NSAIDS -urine electrolytes/sodium -Strict I&O -Monitor renal/lytes daily -Straight cath with 100mls output -consider renal US if no improvement Code(s): N17.9 - ACUTE KIDNEY FAILURE, UNSPECIFIED; N18.9 - CHRONIC KIDNEY DISEASE, UNSPECIFIED (2) Dizziness Current Visit: Yes Status: Acute Assessment & Plan: -Mostly likely multifocal hypovolemia/medications -Orthostatic vitals + -Medication list reviewed, will hold nephrotoxic agents as well as gabapentin -CT head reviewed and negative for acute etiology -Gentle hydration -PT/OT consult Code(s): R42 - DIZZINESS AND GIDDINESS (3) Orthostatic hypotension Current Visit: Yes Status: Acute Assessment & Plan: -See dizziness Code(s): I95.1 - ORTHOSTATIC HYPOTENSION (4) Syncope and collapse Current Visit: Yes Status: Acute Assessment & Plan: -Most likely secondary to hypotension/medications, CT of the head negative for acute etiology Code(s): R55 - SYNCOPE AND COLLAPSE (5) Hyponatremia Current Visit: Yes Status: Acute Assessment & Plan: -mild, due to hypovolemia, will correct slowly with gentle hydration, continue to monitor renal/lytes daily Code(s): E87.1 - HYPO-OSMOLALITY AND HYPONATREMIA Telemedicine Encounter - Telemedicine Encounter Telemedicine Encounter: The entirety of this encounter was performed via Telemedicine" VTE: lovenox PPI: protonix Code status: Full Code Dispo: 2-3 days <ANNABELLA GUIDRY - Last Filed: 05/13/23 16:54> History of Present Illness - Chief Complaint History of Present Illness: is a 58 year old male. - Physical Exam Vital Signs: Vital Signs - 24 hr Temp Pulse Resp BP Pulse Ox 05/13/23 15:51 96.1 F 65 12 126/58 96 05/13/23 14:41 96.6 F 65 12 134/63 99 05/13/23 13:37 96.6 F 65 12 134/63 99 05/13/23 13:01 64 16 122/68 97 05/13/23 12:15 68 18 99 05/13/23 11:53 67 129/64 95 05/13/23 10:30 92 L 05/13/23 10:06 96.8 F 66 16 79/33 94 L Results - Labs Lab/Micro Results: Lab Results-Last 24 Hours 05/13/23 05/13/23 05/13/23 Range/Units 10:21 10:30 10:40 WBC 10.4 (4.0-10.5) x10^3/uL RBC 4.44 (4.1-5.6) x10^6/uL Hgb 13.2 (12.5-18.0) g/dL Hct 40.1 L (42-50) % MCV 90.3 (78-100) fL MCH 29.7 (26-32) pg MCHC 32.9 (32-36) g/dL RDW 13.1 (11.5-14.0) % Plt Count 237 (150-450) x10^3/uL MPV 9.4 (7.5-11.0) fL Gran % 74.7 H (36.0-66.0) % Immature Gran % (Auto) 0.8 H (0.00-0.4) % Nucleat RBC Rel Count 0.0 (0.00-0.1) % Eos # (Auto) 0.10 (0-0.5) x10^3/uL Immature Gran # (Auto) 0.08 H (0.00-0.03) x10^3u/L Absolute Lymphs (auto) 1.12 (1.0-4.6) x10^3/uL Absolute Monos (auto) 1.29 (0.0-1.3) x10^3/uL Absolute Nucleated RBC 0.00 (0.00-0.01) x10^3u/L Lymphocytes % 10.7 L (24.0-44.0) % Monocytes % 12.4 H (0.0-12.0) % Eosinophils % 1.0 (0.00-5.0) % Basophils % 0.4 (0.0-0.4) % Absolute Granulocytes 7.80 H (1.4-6.9) x10^3/uL Basophils # 0.04 (0-0.4) x10^3/uL PT (9.4-12.5) SECONDS INR (0.8-3.0) APTT (25.1-36.5) SECONDS Sodium 132 L (137-145) mmol/L Potassium 4.7 (3.5-5.1) mmol/L Chloride 93 L (98-107) mmol/L Carbon Dioxide 22 (22-30) mmol/L Anion Gap 21.2 H (5-15) MEQ/L BUN 52 H (9-20) mg/dL Creatinine 3.96 H (0.66-1.25) mg/dL Estimated GFR 16.6 ML/MIN Glucose 94 (74-106) mg/dL POC Glucometer (74 to 106) mg/dL Calcium 8.9 (8.4-10.2) mg/dL Total Bilirubin 0.80 (0.2-1.3) mg/dL AST 21 (17-59) U/L ALT 19 (0-50) U/L Alkaline Phosphatase 65 (38-126) U/L Troponin I < 0.012 (0.000-0.034) ng/mL Serum Total Protein 7.5 (6.3-8.2) g/dL Albumin 3.9 (3.5-5.0) g/dL Urine Color (Yellow) Urine Appearance (Clear) Urine pH (4.6-8.0) Ur Specific [place] (1.005-1.030) Urine Protein (Negative) Urine Glucose (UA) (Negative) mg/dL Urine Ketones (Negative) Urine Blood (Negative) Urine Nitrite (Negative) Urine Bilirubin (Negative) Urine Urobilinogen (0.2) mg/dL Ur Leukocyte Esterase (Negative) Urine Microscopic RBC (0-5) /HPF Urine Microscopic WBC (0-5) /HPF Ur Epithelial Cells (None Seen) /HPF Urine Bacteria (None Seen) /HPF Urine Culture Reflexed (NO) Urine Opiates Level (NEGATIVE) Ur Methadone (NEGATIVE) Urine Barbiturates (NEGATIVE) Ur Phencyclidine (PCP) (NEGATIVE) Urine Amphetamine (NEGATIVE) U Benzodiazepine Level (NEGATIVE) Urine Cocaine (NEGATIVE) Urine Marijuana (THC) (NEGATIVE) Ethyl Alcohol < 10 (0-10) mg/dL 05/13/23 05/13/23 05/13/23 Range/Units 12:28 12:28 15:00 WBC (4.0-10.5) x10^3/uL RBC (4.1-5.6) x10^6/uL Hgb (12.5-18.0) g/dL Hct (42-50) % MCV (78-100) fL MCH (26-32) pg MCHC (32-36) g/dL RDW (11.5-14.0) % Plt Count (150-450) x10^3/uL MPV (7.5-11.0) fL Gran % (36.0-66.0) % Immature Gran % (Auto) (0.00-0.4) % Nucleat RBC Rel Count (0.00-0.1) % Eos # (Auto) (0-0.5) x10^3/uL Immature Gran # (Auto) (0.00-0.03) x10^3u/L Absolute Lymphs (auto) (1.0-4.6) x10^3/uL Absolute Monos (auto) (0.0-1.3) x10^3/uL Absolute Nucleated RBC (0.00-0.01) x10^3u/L Lymphocytes % (24.0-44.0) % Monocytes % (0.0-12.0) % Eosinophils % (0.00-5.0) % Basophils % (0.0-0.4) % Absolute Granulocytes (1.4-6.9) x10^3/uL Basophils # (0-0.4) x10^3/uL PT 11.8 (9.4-12.5) SECONDS INR 1.09 (0.8-3.0) APTT 30.5 (25.1-36.5) SECONDS Sodium (137-145) mmol/L Potassium (3.5-5.1) mmol/L Chloride (98-107) mmol/L Carbon Dioxide (22-30) mmol/L Anion Gap (5-15) MEQ/L BUN (9-20) mg/dL Creatinine (0.66-1.25) mg/dL Estimated GFR ML/MIN Glucose (74-106) mg/dL POC Glucometer (74 to 106) mg/dL Calcium (8.4-10.2) mg/dL Total Bilirubin (0.2-1.3) mg/dL AST (17-59) U/L ALT (0-50) U/L Alkaline Phosphatase (38-126) U/L Troponin I (0.000-0.034) ng/mL Serum Total Protein (6.3-8.2) g/dL Albumin (3.5-5.0) g/dL Urine Color Dark Yellow (Yellow) Urine Appearance Cloudy A (Clear) Urine pH 5.0 (4.6-8.0) Ur Specific [place] 1.020 (1.005-1.030) Urine Protein 100 A (Negative) Urine Glucose (UA) >=1000 A (Negative) mg/dL Urine Ketones Trace A (Negative) Urine Blood Negative (Negative) Urine Nitrite Negative (Negative) Urine Bilirubin Negative (Negative) Urine Urobilinogen 1.0 A (0.2) mg/dL Ur Leukocyte Esterase Negative (Negative) Urine Microscopic RBC 0-2 (0-5) /HPF Urine Microscopic WBC 3-5 (0-5) /HPF Ur Epithelial Cells Many A (None Seen) /HPF Urine Bacteria None Seen (None Seen) /HPF Urine Culture Reflexed ORDERED SEPARATELY (NO) Urine Opiates Level NEGATIVE (NEGATIVE) Ur Methadone NEGATIVE (NEGATIVE) Urine Barbiturates NEGATIVE (NEGATIVE) Ur Phencyclidine (PCP) NEGATIVE (NEGATIVE) Urine Amphetamine NEGATIVE (NEGATIVE) U Benzodiazepine Level NEGATIVE (NEGATIVE) Urine Cocaine NEGATIVE (NEGATIVE) Urine Marijuana (THC) NEGATIVE (NEGATIVE) Ethyl Alcohol (0-10) mg/dL 05/13/23 Range/Units 15:45 WBC (4.0-10.5) x10^3/uL RBC (4.1-5.6) x10^6/uL Hgb (12.5-18.0) g/dL Hct (42-50) % MCV (78-100) fL MCH (26-32) pg MCHC (32-36) g/dL RDW (11.5-14.0) % Plt Count (150-450) x10^3/uL MPV (7.5-11.0) fL Gran % (36.0-66.0) % Immature Gran % (Auto) (0.00-0.4) % Nucleat RBC Rel Count (0.00-0.1) % Eos # (Auto) (0-0.5) x10^3/uL Immature Gran # (Auto) (0.00-0.03) x10^3u/L Absolute Lymphs (auto) (1.0-4.6) x10^3/uL Absolute Monos (auto) (0.0-1.3) x10^3/uL Absolute Nucleated RBC (0.00-0.01) x10^3u/L Lymphocytes % (24.0-44.0) % Monocytes % (0.0-12.0) % Eosinophils % (0.00-5.0) % Basophils % (0.0-0.4) % Absolute Granulocytes (1.4-6.9) x10^3/uL Basophils # (0-0.4) x10^3/uL PT (9.4-12.5) SECONDS INR (0.8-3.0) APTT (25.1-36.5) SECONDS Sodium (137-145) mmol/L Potassium (3.5-5.1) mmol/L Chloride (98-107) mmol/L Carbon Dioxide (22-30) mmol/L Anion Gap (5-15) MEQ/L BUN (9-20) mg/dL Creatinine (0.66-1.25) mg/dL Estimated GFR ML/MIN Glucose (74-106) mg/dL POC Glucometer 113 H (74 to 106) mg/dL Calcium (8.4-10.2) mg/dL Total Bilirubin (0.2-1.3) mg/dL AST (17-59) U/L ALT (0-50) U/L Alkaline Phosphatase (38-126) U/L Troponin I (0.000-0.034) ng/mL Serum Total Protein (6.3-8.2) g/dL Albumin (3.5-5.0) g/dL Urine Color (Yellow) Urine Appearance (Clear) Urine pH (4.6-8.0) Ur Specific [place] (1.005-1.030) Urine Protein (Negative) Urine Glucose (UA) (Negative) mg/dL Urine Ketones (Negative) Urine Blood (Negative) Urine Nitrite (Negative) Urine Bilirubin (Negative) Urine Urobilinogen (0.2) mg/dL Ur Leukocyte Esterase (Negative) Urine Microscopic RBC (0-5) /HPF Urine Microscopic WBC (0-5) /HPF Ur Epithelial Cells (None Seen) /HPF Urine Bacteria (None Seen) /HPF Urine Culture Reflexed (NO) Urine Opiates Level (NEGATIVE) Ur Methadone (NEGATIVE) Urine Barbiturates (NEGATIVE) Ur Phencyclidine (PCP) (NEGATIVE) Urine Amphetamine (NEGATIVE) U Benzodiazepine Level (NEGATIVE) Urine Cocaine (NEGATIVE) Urine Marijuana (THC) (NEGATIVE) Ethyl Alcohol (0-10) mg/dL Accuchecks Date 05/13/23 Time 15:50 - Radiology Impressions Radiology Exams & Impressions: Radiology Procedures Category Date Time Status CERVICAL SPINE WO CONTRAST [CT] Stat Exams 05/13/23 10:26 Completed HEAD WITHOUT CONTRAST [CT] Stat Exams 05/13/23 10:26 Completed RIBS UNILATERAL Stat Exams 05/13/23 10:26 Completed SHOULDER Stat Exams 05/13/23 10:27 Completed - Other Procedures and Tests Respiratory Therapy 05/13/23 13:27 EKG REPEAT IN AM Telemedicine Encounter - Telemedicine Encounter Telemedicine Encounter: I have personally seen and examined patient and discussed care with Francisco Mendez NP and reviewed pertinent clinical data including history, physical, and diagnostic findings. I agree with the assessment, and treatment plan as described in her original note. Please see below for my summary of findings and any additional assessment and plan, as well as any meaningful corrections or explanations of their note. My portion of visit was conducted entirely via telemedicine, to which patient consented. 58-year-old man with multiple medications, presumably for severe hypertension, CHF?, CKD, and diabetes, here with acute renal failure and orthostatic hypotension. I suspect patient has significant polypharmacy. He was here 6 days ago with a normal creatinine, and now is up to 4. He has a gap acidosis with concomitant metabolic alkalosis, but mild, and no hypokalemia or volume overload to indicate urgent need for dialysis. I suspect this is due to poor p.o. intake recently in the setting of multiple nephrotoxic medications including bumetanide, lisinopril, spironolactone, hydrochlorothiazide. His acidosis might be a type B lactic acidosis secondary to the use of metformin in the setting of HERBERT. We will give him IV fluids, hold the above meds, as well as metformin, Farxiga, and gabapentin. Repeat BMP in the morning. Annabella Guidry MD, PhD Internal Medicine Hospitalist [employer]
[2023-05-13] MEDS: Sodium Chloride 0.9% 1000 ML 1,000 ML IV SCH (13:57)
[2023-05-13] MEDS ORDERED: LACTULOSE 20 GM/30ML UD CUP PO PRN (14:27)
[2023-05-13] MEDS: ZOCOR 20MG PO SCH (15:56)
[2023-05-13] MEDS: Protonix 40MG Tablet PO SCH (15:57)
[2023-05-13] MEDS: COREG 12.5 MG PO SCH ×2 (15:57→21:26)
[2023-05-13] MEDS: BUSPAR 5 MG PO SCH ×2 (15:57→21:26)
[2023-05-13] MEDS: PROZAC 10 MG PO SCH (15:58)
[2023-05-13 16:05] LABS: INR 1.09 (0.8-3.0); PROTIME 11.8 SECONDS (9.4-12.5); PTT 30.5 SECONDS (25.1-36.5)
[2023-05-13] MEDS: HEPARIN 5000 UNITS/0.5 ML (HIGH RISK MED) SQ SCH (21:26)
[2023-05-13] MEDS ORDERED: NON-FORMULARY ITEM (Carvedilol [Carvedilol] 25 MG Tablet) PO SCH (22:00)
[2023-05-14] MEDS: Sodium Chloride 0.9% 1000 ML 1,000 ML IV SCH (01:13)
[2023-05-14 04:36] LABS: Absolute Neutrophil Ct (ANC) 6.28 x10^3/uL (1.4-6.9); BASOPHIL % 0.5 % (0.0-0.4); Basophil (Absolute #) 0.04 x10^3/uL (0-0.4); Eosinophil % 1.3 % (0.00-5.0); Eosinophil (Absolute #) 0.11 x10^3/uL (0-0.5); Hematocrit 39.9 % (42-50); Hemoglobin 12.9 g/dL (12.5-18.0); IMMATURE GRAN # 0.05 x10^3u/L (0.00-0.03); IMMATURE GRAN % 0.6 % (0.00-0.4); Lymphocyte (Absolute #) 0.75 x10^3/uL (1.0-4.6); Mean Cell Volume 89.9 fL (78-100); Mean Corpuscular Hemoglobin 29.1 pg (26-32); Mean Corpuscular Hgb Concent. 32.3 g/dL (32-36); Mean Platelet Volume 9.4 fL (7.5-11.0); Monocyte (Absolute #) 1.07 x10^3/uL (0.0-1.3); Monocytes % 12.9 % (0.0-12.0); Neutrophil % 75.7 % (36.0-66.0); Platelet Count 229 x10^3/uL (150-450); Red Blood Count 4.44 x10^6/uL (4.1-5.6); Red Cell Distribution Width 12.7 % (11.5-14.0); White Blood Count 8.3 x10^3/uL (4.0-10.5)
[2023-05-14 05:24] LABS: ALBUMIN 3.5 g/dL (3.5-5.0); ANION GAP 16.5 MEQ/L (5-15); BILIRUBIN,TOTAL 0.4 mg/dL (0.2-1.3); Calcium 8.4 mg/dL (8.4-10.2); Creatinine 1 2.16 mg/dL (0.66-1.25); EST GLOMERULAR FILTRATION RATE 33.4 ML/MIN; Potassium 4.2 mmol/L (3.5-5.1); Total Protein 6.9 g/dL (6.3-8.2)
[2023-05-14] MEDS: COREG 12.5 MG PO SCH ×2 (09:13→21:10)
[2023-05-14] MEDS: Protonix 40MG Tablet PO SCH (09:14)
[2023-05-14] MEDS: HEPARIN 5000 UNITS/0.5 ML (HIGH RISK MED) SQ SCH ×2 (09:14→21:10)
[2023-05-14] MEDS: BUSPAR 5 MG PO SCH ×2 (09:14→21:10)
[2023-05-14] MEDS: ZOCOR 20MG PO SCH (09:14)
[2023-05-14] MEDS: PROZAC 10 MG PO SCH (09:19)
--- NOTE | 2023-05-14 09:53 | PCM.NOTE ---
Date and Time: 05/14/23 0948 Subjective Assessment: Patient notes improvement of dizziness upon standing and was able to ambulate with PT/OT without difficulties. Endorses some head pain which he feels is related to a "pinched nerve." Gabapentin on hold currently due to kidney function. <FRANCISCO MENDEZ - Last Filed: 05/14/23 09:48> Date and Time: 05/14/23 1102 <AUBREYANNABELLA PEDROZA - Last Filed: 05/14/23 11:03> - Review of Systems Constitutional: No Symptoms Eyes: No Symptoms Ears, Nose, & Throat: No Symptoms Respiratory: No Symptoms Cardiac: No Symptoms Abdominal/Gastrointestinal: No Symptoms Genitourinary Symptoms: No Symptoms Musculoskeletal: No Symptoms Skin: No Symptoms Neurological: Headache Psychological: No Symptoms All Other Systems: Reviewed and Negative <FRANCISCO MENDEZ - Last Filed: 05/14/23 09:48> Objective Exam General Appearance: no apparent distress Neurologic Exam: oriented x 3 Skin Exam: normal color, warm, dry Eye Exam: PERRL Respiratory Exam: normal breath sounds Cardiovascular Exam: regular rate/rhythm, normal heart sounds Gastrointestinal/Abdomen Exam: soft, normal bowel sounds <FRANCISCO MENDEZ - Last Filed: 05/14/23 09:48> OBJECTIVE DATA Vital Signs: Vital Signs - 24 hr Temp Pulse Resp BP Pulse Ox 05/14/23 06:55 97.3 F 70 18 113/56 94 L 05/14/23 04:00 98.4 F 73 16 152/66 96 05/13/23 23:26 98.2 F 76 16 182/69 94 L 05/13/23 19:05 98.4 F 69 16 115/51 93 L 05/13/23 15:51 96.1 F 65 12 126/58 96 05/13/23 14:41 96.6 F 65 12 134/63 99 05/13/23 13:37 96.6 F 65 12 134/63 99 05/13/23 13:01 64 16 122/68 97 05/13/23 12:15 68 18 99 05/13/23 11:53 67 129/64 95 05/13/23 10:30 92 L 05/13/23 10:06 96.8 F 66 16 79/33 94 L Pain Assessment - Last Documented Pain Intensity 0 Pain Scale Used 0-10 Pain Scale Intake and Output: Intake & Output 05/11/23 05/12/23 05/13/23 05/14/23 11:59 11:59 11:59 11:59 Intake Total 1514 Output Total 3300 Balance -1786 Weight 117.7 kg 117.1 kg Lab Results: Lab Results-Last 24 Hours 05/13/23 05/13/23 05/13/23 Range/Units 10:21 10:30 10:40 WBC 10.4 (4.0-10.5) x10^3/uL RBC 4.44 (4.1-5.6) x10^6/uL Hgb 13.2 (12.5-18.0) g/dL Hct 40.1 L (42-50) % MCV 90.3 (78-100) fL MCH 29.7 (26-32) pg MCHC 32.9 (32-36) g/dL RDW 13.1 (11.5-14.0) % Plt Count 237 (150-450) x10^3/uL MPV 9.4 (7.5-11.0) fL Gran % 74.7 H (36.0-66.0) % Immature Gran % (Auto) 0.8 H (0.00-0.4) % Nucleat RBC Rel Count 0.0 (0.00-0.1) % Eos # (Auto) 0.10 (0-0.5) x10^3/uL Immature Gran # (Auto) 0.08 H (0.00-0.03) x10^3u/L Absolute Lymphs (auto) 1.12 (1.0-4.6) x10^3/uL Absolute Monos (auto) 1.29 (0.0-1.3) x10^3/uL Absolute Nucleated RBC 0.00 (0.00-0.01) x10^3u/L Lymphocytes % 10.7 L (24.0-44.0) % Monocytes % 12.4 H (0.0-12.0) % Eosinophils % 1.0 (0.00-5.0) % Basophils % 0.4 (0.0-0.4) % Absolute Granulocytes 7.80 H (1.4-6.9) x10^3/uL Basophils # 0.04 (0-0.4) x10^3/uL PT (9.4-12.5) SECONDS INR (0.8-3.0) APTT (25.1-36.5) SECONDS Sodium 132 L (137-145) mmol/L Potassium 4.7 (3.5-5.1) mmol/L Chloride 93 L (98-107) mmol/L Carbon Dioxide 22 (22-30) mmol/L Anion Gap 21.2 H (5-15) MEQ/L BUN 52 H (9-20) mg/dL Creatinine 3.96 H (0.66-1.25) mg/dL Estimated GFR 16.6 ML/MIN Glucose 94 (74-106) mg/dL POC Glucometer (74 to 106) mg/dL Hemoglobin A1c (4.5-6.0) % Calcium 8.9 (8.4-10.2) mg/dL Total Bilirubin 0.80 (0.2-1.3) mg/dL AST 21 (17-59) U/L ALT 19 (0-50) U/L Alkaline Phosphatase 65 (38-126) U/L Troponin I < 0.012 (0.000-0.034) ng/mL NT-Pro-B Natriuret Pep (<300) pg/mL Serum Total Protein 7.5 (6.3-8.2) g/dL Albumin 3.9 (3.5-5.0) g/dL Urine Color (Yellow) Urine Appearance (Clear) Urine pH (4.6-8.0) Ur Specific [place] (1.005-1.030) Urine Protein (Negative) Urine Glucose (UA) (Negative) mg/dL Urine Ketones (Negative) Urine Blood (Negative) Urine Nitrite (Negative) Urine Bilirubin (Negative) Urine Urobilinogen (0.2) mg/dL Ur Leukocyte Esterase (Negative) Urine Microscopic RBC (0-5) /HPF Urine Microscopic WBC (0-5) /HPF Ur Epithelial Cells (None Seen) /HPF Urine Bacteria (None Seen) /HPF Urine Culture Reflexed (NO) Ur Random Creatinine MG/DL Urine Sodium (30-90) mmol/L Urine Opiates Level (NEGATIVE) Ur Methadone (NEGATIVE) Urine Barbiturates (NEGATIVE) Ur Phencyclidine (PCP) (NEGATIVE) Urine Amphetamine (NEGATIVE) U Benzodiazepine Level (NEGATIVE) Urine Cocaine (NEGATIVE) Urine Marijuana (THC) (NEGATIVE) Ethyl Alcohol < 10 (0-10) mg/dL 05/13/23 05/13/23 05/13/23 Range/Units 12:28 12:28 15:00 WBC (4.0-10.5) x10^3/uL RBC (4.1-5.6) x10^6/uL Hgb (12.5-18.0) g/dL Hct (42-50) % MCV (78-100) fL MCH (26-32) pg MCHC (32-36) g/dL RDW (11.5-14.0) % Plt Count (150-450) x10^3/uL MPV (7.5-11.0) fL Gran % (36.0-66.0) % Immature Gran % (Auto) (0.00-0.4) % Nucleat RBC Rel Count (0.00-0.1) % Eos # (Auto) (0-0.5) x10^3/uL Immature Gran # (Auto) (0.00-0.03) x10^3u/L Absolute Lymphs (auto) (1.0-4.6) x10^3/uL Absolute Monos (auto) (0.0-1.3) x10^3/uL Absolute Nucleated RBC (0.00-0.01) x10^3u/L Lymphocytes % (24.0-44.0) % Monocytes % (0.0-12.0) % Eosinophils % (0.00-5.0) % Basophils % (0.0-0.4) % Absolute Granulocytes (1.4-6.9) x10^3/uL Basophils # (0-0.4) x10^3/uL PT 11.8 (9.4-12.5) SECONDS INR 1.09 (0.8-3.0) APTT 30.5 (25.1-36.5) SECONDS Sodium (137-145) mmol/L Potassium (3.5-5.1) mmol/L Chloride (98-107) mmol/L Carbon Dioxide (22-30) mmol/L Anion Gap (5-15) MEQ/L BUN (9-20) mg/dL Creatinine (0.66-1.25) mg/dL Estimated GFR ML/MIN Glucose (74-106) mg/dL POC Glucometer (74 to 106) mg/dL Hemoglobin A1c (4.5-6.0) % Calcium (8.4-10.2) mg/dL Total Bilirubin (0.2-1.3) mg/dL AST (17-59) U/L ALT (0-50) U/L Alkaline Phosphatase (38-126) U/L Troponin I (0.000-0.034) ng/mL NT-Pro-B Natriuret Pep (<300) pg/mL Serum Total Protein (6.3-8.2) g/dL Albumin (3.5-5.0) g/dL Urine Color Dark Yellow (Yellow) Urine Appearance Cloudy A (Clear) Urine pH 5.0 (4.6-8.0) Ur Specific [place] 1.020 (1.005-1.030) Urine Protein 100 A (Negative) Urine Glucose (UA) >=1000 A (Negative) mg/dL Urine Ketones Trace A (Negative) Urine Blood Negative (Negative) Urine Nitrite Negative (Negative) Urine Bilirubin Negative (Negative) Urine Urobilinogen 1.0 A (0.2) mg/dL Ur Leukocyte Esterase Negative (Negative) Urine Microscopic RBC 0-2 (0-5) /HPF Urine Microscopic WBC 3-5 (0-5) /HPF Ur Epithelial Cells Many A (None Seen) /HPF Urine Bacteria None Seen (None Seen) /HPF Urine Culture Reflexed ORDERED SEPARATELY (NO) Ur Random Creatinine MG/DL Urine Sodium (30-90) mmol/L Urine Opiates Level NEGATIVE (NEGATIVE) Ur Methadone NEGATIVE (NEGATIVE) Urine Barbiturates NEGATIVE (NEGATIVE) Ur Phencyclidine (PCP) NEGATIVE (NEGATIVE) Urine Amphetamine NEGATIVE (NEGATIVE) U Benzodiazepine Level NEGATIVE (NEGATIVE) Urine Cocaine NEGATIVE (NEGATIVE) Urine Marijuana (THC) NEGATIVE (NEGATIVE) Ethyl Alcohol (0-10) mg/dL 05/13/23 05/13/23 05/13/23 Range/Units 15:45 16:05 17:00 WBC (4.0-10.5) x10^3/uL RBC (4.1-5.6) x10^6/uL Hgb (12.5-18.0) g/dL Hct (42-50) % MCV (78-100) fL MCH (26-32) pg MCHC (32-36) g/dL RDW (11.5-14.0) % Plt Count (150-450) x10^3/uL MPV (7.5-11.0) fL Gran % (36.0-66.0) % Immature Gran % (Auto) (0.00-0.4) % Nucleat RBC Rel Count (0.00-0.1) % Eos # (Auto) (0-0.5) x10^3/uL Immature Gran # (Auto) (0.00-0.03) x10^3u/L Absolute Lymphs (auto) (1.0-4.6) x10^3/uL Absolute Monos (auto) (0.0-1.3) x10^3/uL Absolute Nucleated RBC (0.00-0.01) x10^3u/L Lymphocytes % (24.0-44.0) % Monocytes % (0.0-12.0) % Eosinophils % (0.00-5.0) % Basophils % (0.0-0.4) % Absolute Granulocytes (1.4-6.9) x10^3/uL Basophils # (0-0.4) x10^3/uL PT (9.4-12.5) SECONDS INR (0.8-3.0) APTT (25.1-36.5) SECONDS Sodium (137-145) mmol/L Potassium (3.5-5.1) mmol/L Chloride (98-107) mmol/L Carbon Dioxide (22-30) mmol/L Anion Gap (5-15) MEQ/L BUN (9-20) mg/dL Creatinine (0.66-1.25) mg/dL Estimated GFR ML/MIN Glucose (74-106) mg/dL POC Glucometer 113 H (74 to 106) mg/dL Hemoglobin A1c (4.5-6.0) % Calcium (8.4-10.2) mg/dL Total Bilirubin (0.2-1.3) mg/dL AST (17-59) U/L ALT (0-50) U/L Alkaline Phosphatase (38-126) U/L Troponin I < 0.012 (0.000-0.034) ng/mL NT-Pro-B Natriuret Pep (<300) pg/mL Serum Total Protein (6.3-8.2) g/dL Albumin (3.5-5.0) g/dL Urine Color (Yellow) Urine Appearance (Clear) Urine pH (4.6-8.0) Ur Specific [place] (1.005-1.030) Urine Protein (Negative) Urine Glucose (UA) (Negative) mg/dL Urine Ketones (Negative) Urine Blood (Negative) Urine Nitrite (Negative) Urine Bilirubin (Negative) Urine Urobilinogen (0.2) mg/dL Ur Leukocyte Esterase (Negative) Urine Microscopic RBC (0-5) /HPF Urine Microscopic WBC (0-5) /HPF Ur Epithelial Cells (None Seen) /HPF Urine Bacteria (None Seen) /HPF Urine Culture Reflexed (NO) Ur Random Creatinine 185.8 MG/DL Urine Sodium (30-90) mmol/L Urine Opiates Level (NEGATIVE) Ur Methadone (NEGATIVE) Urine Barbiturates (NEGATIVE) Ur Phencyclidine (PCP) (NEGATIVE) Urine Amphetamine (NEGATIVE) U Benzodiazepine Level (NEGATIVE) Urine Cocaine (NEGATIVE) Urine Marijuana (THC) (NEGATIVE) Ethyl Alcohol (0-10) mg/dL 05/13/23 05/13/23 05/13/23 Range/Units 19:35 21:32 Unknown WBC (4.0-10.5) x10^3/uL RBC (4.1-5.6) x10^6/uL Hgb (12.5-18.0) g/dL Hct (42-50) % MCV (78-100) fL MCH (26-32) pg MCHC (32-36) g/dL RDW (11.5-14.0) % Plt Count (150-450) x10^3/uL MPV (7.5-11.0) fL Gran % (36.0-66.0) % Immature Gran % (Auto) (0.00-0.4) % Nucleat RBC Rel Count (0.00-0.1) % Eos # (Auto) (0-0.5) x10^3/uL Immature Gran # (Auto) (0.00-0.03) x10^3u/L Absolute Lymphs (auto) (1.0-4.6) x10^3/uL Absolute Monos (auto) (0.0-1.3) x10^3/uL Absolute Nucleated RBC (0.00-0.01) x10^3u/L Lymphocytes % (24.0-44.0) % Monocytes % (0.0-12.0) % Eosinophils % (0.00-5.0) % Basophils % (0.0-0.4) % Absolute Granulocytes (1.4-6.9) x10^3/uL Basophils # (0-0.4) x10^3/uL PT (9.4-12.5) SECONDS INR (0.8-3.0) APTT (25.1-36.5) SECONDS Sodium (137-145) mmol/L Potassium (3.5-5.1) mmol/L Chloride (98-107) mmol/L Carbon Dioxide (22-30) mmol/L Anion Gap (5-15) MEQ/L BUN (9-20) mg/dL Creatinine (0.66-1.25) mg/dL Estimated GFR ML/MIN Glucose (74-106) mg/dL POC Glucometer 143 H (74 to 106) mg/dL Hemoglobin A1c (4.5-6.0) % Calcium (8.4-10.2) mg/dL Total Bilirubin (0.2-1.3) mg/dL AST (17-59) U/L ALT (0-50) U/L Alkaline Phosphatase (38-126) U/L Troponin I < 0.012 (0.000-0.034) ng/mL NT-Pro-B Natriuret Pep (<300) pg/mL Serum Total Protein (6.3-8.2) g/dL Albumin (3.5-5.0) g/dL Urine Color (Yellow) Urine Appearance (Clear) Urine pH (4.6-8.0) Ur Specific [place] (1.005-1.030) Urine Protein (Negative) Urine Glucose (UA) (Negative) mg/dL Urine Ketones (Negative) Urine Blood (Negative) Urine Nitrite (Negative) Urine Bilirubin (Negative) Urine Urobilinogen (0.2) mg/dL Ur Leukocyte Esterase (Negative) Urine Microscopic RBC (0-5) /HPF Urine Microscopic WBC (0-5) /HPF Ur Epithelial Cells (None Seen) /HPF Urine Bacteria (None Seen) /HPF Urine Culture Reflexed (NO) Ur Random Creatinine MG/DL Urine Sodium 22 L (30-90) mmol/L Urine Opiates Level (NEGATIVE) Ur Methadone (NEGATIVE) Urine Barbiturates (NEGATIVE) Ur Phencyclidine (PCP) (NEGATIVE) Urine Amphetamine (NEGATIVE) U Benzodiazepine Level (NEGATIVE) Urine Cocaine (NEGATIVE) Urine Marijuana (THC) (NEGATIVE) Ethyl Alcohol (0-10) mg/dL 05/14/23 05/14/23 05/14/23 Range/Units 04:13 04:13 04:13 WBC 8.3 (4.0-10.5) x10^3/uL RBC 4.44 (4.1-5.6) x10^6/uL Hgb 12.9 (12.5-18.0) g/dL Hct 39.9 L (42-50) % MCV 89.9 (78-100) fL MCH 29.1 (26-32) pg MCHC 32.3 (32-36) g/dL RDW 12.7 (11.5-14.0) % Plt Count 229 (150-450) x10^3/uL MPV 9.4 (7.5-11.0) fL Gran % 75.7 H (36.0-66.0) % Immature Gran % (Auto) 0.6 H (0.00-0.4) % Nucleat RBC Rel Count 0.0 (0.00-0.1) % Eos # (Auto) 0.11 (0-0.5) x10^3/uL Immature Gran # (Auto) 0.05 H (0.00-0.03) x10^3u/L Absolute Lymphs (auto) 0.75 L (1.0-4.6) x10^3/uL Absolute Monos (auto) 1.07 (0.0-1.3) x10^3/uL Absolute Nucleated RBC 0.00 (0.00-0.01) x10^3u/L Lymphocytes % 9.0 L (24.0-44.0) % Monocytes % 12.9 H (0.0-12.0) % Eosinophils % 1.3 (0.00-5.0) % Basophils % 0.5 (0.0-0.4) % Absolute Granulocytes 6.28 (1.4-6.9) x10^3/uL Basophils # 0.04 (0-0.4) x10^3/uL PT (9.4-12.5) SECONDS INR (0.8-3.0) APTT (25.1-36.5) SECONDS Sodium 134 L (137-145) mmol/L Potassium 4.2 (3.5-5.1) mmol/L Chloride 98 (98-107) mmol/L Carbon Dioxide 24 (22-30) mmol/L Anion Gap 16.5 H (5-15) MEQ/L BUN 44 H (9-20) mg/dL Creatinine 2.16 H (0.66-1.25) mg/dL Estimated GFR 33.4 ML/MIN Glucose 119 H (74-106) mg/dL POC Glucometer (74 to 106) mg/dL Hemoglobin A1c 6.17 H (4.5-6.0) % Calcium 8.4 (8.4-10.2) mg/dL Total Bilirubin 0.40 (0.2-1.3) mg/dL AST 18 (17-59) U/L ALT 19 (0-50) U/L Alkaline Phosphatase 77 (38-126) U/L Troponin I (0.000-0.034) ng/mL NT-Pro-B Natriuret Pep 332 (<300) pg/mL Serum Total Protein 6.9 (6.3-8.2) g/dL Albumin 3.5 (3.5-5.0) g/dL Urine Color (Yellow) Urine Appearance (Clear) Urine pH (4.6-8.0) Ur Specific [place] (1.005-1.030) Urine Protein (Negative) Urine Glucose (UA) (Negative) mg/dL Urine Ketones (Negative) Urine Blood (Negative) Urine Nitrite (Negative) Urine Bilirubin (Negative) Urine Urobilinogen (0.2) mg/dL Ur Leukocyte Esterase (Negative) Urine Microscopic RBC (0-5) /HPF Urine Microscopic WBC (0-5) /HPF Ur Epithelial Cells (None Seen) /HPF Urine Bacteria (None Seen) /HPF Urine Culture Reflexed (NO) Ur Random Creatinine MG/DL Urine Sodium (30-90) mmol/L Urine Opiates Level (NEGATIVE) Ur Methadone (NEGATIVE) Urine Barbiturates (NEGATIVE) Ur Phencyclidine (PCP) (NEGATIVE) Urine Amphetamine (NEGATIVE) U Benzodiazepine Level (NEGATIVE) Urine Cocaine (NEGATIVE) Urine Marijuana (THC) (NEGATIVE) Ethyl Alcohol (0-10) mg/dL 05/14/23 05/14/23 Range/Units 06:48 08:01 WBC (4.0-10.5) x10^3/uL RBC (4.1-5.6) x10^6/uL Hgb (12.5-18.0) g/dL Hct (42-50) % MCV (78-100) fL MCH (26-32) pg MCHC (32-36) g/dL RDW (11.5-14.0) % Plt Count (150-450) x10^3/uL MPV (7.5-11.0) fL Gran % (36.0-66.0) % Immature Gran % (Auto) (0.00-0.4) % Nucleat RBC Rel Count (0.00-0.1) % Eos # (Auto) (0-0.5) x10^3/uL Immature Gran # (Auto) (0.00-0.03) x10^3u/L Absolute Lymphs (auto) (1.0-4.6) x10^3/uL Absolute Monos (auto) (0.0-1.3) x10^3/uL Absolute Nucleated RBC (0.00-0.01) x10^3u/L Lymphocytes % (24.0-44.0) % Monocytes % (0.0-12.0) % Eosinophils % (0.00-5.0) % Basophils % (0.0-0.4) % Absolute Granulocytes (1.4-6.9) x10^3/uL Basophils # (0-0.4) x10^3/uL PT (9.4-12.5) SECONDS INR (0.8-3.0) APTT (25.1-36.5) SECONDS Sodium (137-145) mmol/L Potassium (3.5-5.1) mmol/L Chloride (98-107) mmol/L Carbon Dioxide (22-30) mmol/L Anion Gap (5-15) MEQ/L BUN (9-20) mg/dL Creatinine (0.66-1.25) mg/dL Estimated GFR ML/MIN Glucose (74-106) mg/dL POC Glucometer 122 H 137 H (74 to 106) mg/dL Hemoglobin A1c (4.5-6.0) % Calcium (8.4-10.2) mg/dL Total Bilirubin (0.2-1.3) mg/dL AST (17-59) U/L ALT (0-50) U/L Alkaline Phosphatase (38-126) U/L Troponin I (0.000-0.034) ng/mL NT-Pro-B Natriuret Pep (<300) pg/mL Serum Total Protein (6.3-8.2) g/dL Albumin (3.5-5.0) g/dL Urine Color (Yellow) Urine Appearance (Clear) Urine pH (4.6-8.0) Ur Specific [place] (1.005-1.030) Urine Protein (Negative) Urine Glucose (UA) (Negative) mg/dL Urine Ketones (Negative) Urine Blood (Negative) Urine Nitrite (Negative) Urine Bilirubin (Negative) Urine Urobilinogen (0.2) mg/dL Ur Leukocyte Esterase (Negative) Urine Microscopic RBC (0-5) /HPF Urine Microscopic WBC (0-5) /HPF Ur Epithelial Cells (None Seen) /HPF Urine Bacteria (None Seen) /HPF Urine Culture Reflexed (NO) Ur Random Creatinine MG/DL Urine Sodium (30-90) mmol/L Urine Opiates Level (NEGATIVE) Ur Methadone (NEGATIVE) Urine Barbiturates (NEGATIVE) Ur Phencyclidine (PCP) (NEGATIVE) Urine Amphetamine (NEGATIVE) U Benzodiazepine Level (NEGATIVE) Urine Cocaine (NEGATIVE) Urine Marijuana (THC) (NEGATIVE) Ethyl Alcohol (0-10) mg/dL Radiology Exams: Radiology Procedures Category Date Time Status CERVICAL SPINE WO CONTRAST [CT] Stat Exams 05/13/23 10:26 Completed HEAD WITHOUT CONTRAST [CT] Stat Exams 05/13/23 10:26 Completed RIBS UNILATERAL Stat Exams 05/13/23 10:26 Completed SHOULDER Stat Exams 05/13/23 10:27 Completed <FRANCISCO MENDEZ - Last Filed: 05/14/23 09:48> Vital Signs: Vital Signs - 24 hr Temp Pulse Resp BP Pulse Ox 05/14/23 06:55 97.3 F 70 18 113/56 94 L 08/08/23 04:00 98.4 F 73 16 152/66 96 05/13/23 23:26 98.2 F 76 16 182/69 94 L 05/13/23 19:05 98.4 F 69 16 115/51 93 L 05/13/23 15:51 96.1 F 65 12 126/58 96 05/13/23 14:41 96.6 F 65 12 134/63 99 05/13/23 13:37 96.6 F 65 12 134/63 99 05/13/23 13:01 64 16 122/68 97 05/13/23 12:15 68 18 99 05/13/23 11:53 67 129/64 95 Pain Assessment - Last Documented Pain Intensity 0 Pain Scale Used 0-10 Pain Scale Intake and Output: Intake & Output 05/11/23 05/12/23 05/13/23 05/14/23 11:59 11:59 11:59 11:59 Intake Total 1514 Output Total 3300 Balance -1786 Weight 117.7 kg 117.1 kg Lab Results: Lab Results-Last 24 Hours 05/13/23 05/13/23 05/13/23 Range/Units 10:40 12:28 12:28 WBC (4.0-10.5) x10^3/uL RBC (4.1-5.6) x10^6/uL Hgb (12.5-18.0) g/dL Hct (42-50) % MCV (78-100) fL MCH (26-32) pg MCHC (32-36) g/dL RDW (11.5-14.0) % Plt Count (150-450) x10^3/uL MPV (7.5-11.0) fL Gran % (36.0-66.0) % Immature Gran % (Auto) (0.00-0.4) % Nucleat RBC Rel Count (0.00-0.1) % Eos # (Auto) (0-0.5) x10^3/uL Immature Gran # (Auto) (0.00-0.03) x10^3u/L Absolute Lymphs (auto) (1.0-4.6) x10^3/uL Absolute Monos (auto) (0.0-1.3) x10^3/uL Absolute Nucleated RBC (0.00-0.01) x10^3u/L Lymphocytes % (24.0-44.0) % Monocytes % (0.0-12.0) % Eosinophils % (0.00-5.0) % Basophils % (0.0-0.4) % Absolute Granulocytes (1.4-6.9) x10^3/uL Basophils # (0-0.4) x10^3/uL PT (9.4-12.5) SECONDS INR (0.8-3.0) APTT (25.1-36.5) SECONDS Sodium (137-145) mmol/L Potassium (3.5-5.1) mmol/L Chloride (98-107) mmol/L Carbon Dioxide (22-30) mmol/L Anion Gap (5-15) MEQ/L BUN (9-20) mg/dL Creatinine (0.66-1.25) mg/dL Estimated GFR ML/MIN Glucose (74-106) mg/dL POC Glucometer (74 to 106) mg/dL Hemoglobin A1c (4.5-6.0) % Calcium (8.4-10.2) mg/dL Total Bilirubin (0.2-1.3) mg/dL AST (17-59) U/L ALT (0-50) U/L Alkaline Phosphatase (38-126) U/L Troponin I < 0.012 (0.000-0.034) ng/mL NT-Pro-B Natriuret Pep (<300) pg/mL Serum Total Protein (6.3-8.2) g/dL Albumin (3.5-5.0) g/dL Urine Color Dark Yellow (Yellow) Urine Appearance Cloudy A (Clear) Urine pH 5.0 (4.6-8.0) Ur Specific [place] 1.020 (1.005-1.030) Urine Protein 100 A (Negative) Urine Glucose (UA) >=1000 A (Negative) mg/dL Urine Ketones Trace A (Negative) Urine Blood Negative (Negative) Urine Nitrite Negative (Negative) Urine Bilirubin Negative (Negative) Urine Urobilinogen 1.0 A (0.2) mg/dL Ur Leukocyte Esterase Negative (Negative) Urine Microscopic RBC 0-2 (0-5) /HPF Urine Microscopic WBC 3-5 (0-5) /HPF Ur Epithelial Cells Many A (None Seen) /HPF Urine Bacteria None Seen (None Seen) /HPF Urine Culture Reflexed ORDERED SEPARATELY (NO) Ur Random Creatinine MG/DL Urine Sodium (30-90) mmol/L Urine Opiates Level NEGATIVE (NEGATIVE) Ur Methadone NEGATIVE (NEGATIVE) Urine Barbiturates NEGATIVE (NEGATIVE) Ur Phencyclidine (PCP) NEGATIVE (NEGATIVE) Urine Amphetamine NEGATIVE (NEGATIVE) U Benzodiazepine Level NEGATIVE (NEGATIVE) Urine Cocaine NEGATIVE (NEGATIVE) Urine Marijuana (THC) NEGATIVE (NEGATIVE) 05/13/23 05/13/23 05/13/23 Range/Units 15:00 15:45 16:05 WBC (4.0-10.5) x10^3/uL RBC (4.1-5.6) x10^6/uL Hgb (12.5-18.0) g/dL Hct (42-50) % MCV (78-100) fL MCH (26-32) pg MCHC (32-36) g/dL RDW (11.5-14.0) % Plt Count (150-450) x10^3/uL MPV (7.5-11.0) fL Gran % (36.0-66.0) % Immature Gran % (Auto) (0.00-0.4) % Nucleat RBC Rel Count (0.00-0.1) % Eos # (Auto) (0-0.5) x10^3/uL Immature Gran # (Auto) (0.00-0.03) x10^3u/L Absolute Lymphs (auto) (1.0-4.6) x10^3/uL Absolute Monos (auto) (0.0-1.3) x10^3/uL Absolute Nucleated RBC (0.00-0.01) x10^3u/L Lymphocytes % (24.0-44.0) % Monocytes % (0.0-12.0) % Eosinophils % (0.00-5.0) % Basophils % (0.0-0.4) % Absolute Granulocytes (1.4-6.9) x10^3/uL Basophils # (0-0.4) x10^3/uL PT 11.8 (9.4-12.5) SECONDS INR 1.09 (0.8-3.0) APTT 30.5 (25.1-36.5) SECONDS Sodium (137-145) mmol/L Potassium (3.5-5.1) mmol/L Chloride (98-107) mmol/L Carbon Dioxide (22-30) mmol/L Anion Gap (5-15) MEQ/L BUN (9-20) mg/dL Creatinine (0.66-1.25) mg/dL Estimated GFR ML/MIN Glucose (74-106) mg/dL POC Glucometer 113 H (74 to 106) mg/dL Hemoglobin A1c (4.5-6.0) % Calcium (8.4-10.2) mg/dL Total Bilirubin (0.2-1.3) mg/dL AST (17-59) U/L ALT (0-50) U/L Alkaline Phosphatase (38-126) U/L Troponin I < 0.012 (0.000-0.034) ng/mL NT-Pro-B Natriuret Pep (<300) pg/mL Serum Total Protein (6.3-8.2) g/dL Albumin (3.5-5.0) g/dL Urine Color (Yellow) Urine Appearance (Clear) Urine pH (4.6-8.0) Ur Specific [place] (1.005-1.030) Urine Protein (Negative) Urine Glucose (UA) (Negative) mg/dL Urine Ketones (Negative) Urine Blood (Negative) Urine Nitrite (Negative) Urine Bilirubin (Negative) Urine Urobilinogen (0.2) mg/dL Ur Leukocyte Esterase (Negative) Urine Microscopic RBC (0-5) /HPF Urine Microscopic WBC (0-5) /HPF Ur Epithelial Cells (None Seen) /HPF Urine Bacteria (None Seen) /HPF Urine Culture Reflexed (NO) Ur Random Creatinine MG/DL Urine Sodium (30-90) mmol/L Urine Opiates Level (NEGATIVE) Ur Methadone (NEGATIVE) Urine Barbiturates (NEGATIVE) Ur Phencyclidine (PCP) (NEGATIVE) Urine Amphetamine (NEGATIVE) U Benzodiazepine Level (NEGATIVE) Urine Cocaine (NEGATIVE) Urine Marijuana (THC) (NEGATIVE) 05/13/23 05/13/23 05/13/23 Range/Units 17:00 19:35 21:32 WBC (4.0-10.5) x10^3/uL RBC (4.1-5.6) x10^6/uL Hgb (12.5-18.0) g/dL Hct (42-50) % MCV (78-100) fL MCH (26-32) pg MCHC (32-36) g/dL RDW (11.5-14.0) % Plt Count (150-450) x10^3/uL MPV (7.5-11.0) fL Gran % (36.0-66.0) % Immature Gran % (Auto) (0.00-0.4) % Nucleat RBC Rel Count (0.00-0.1) % Eos # (Auto) (0-0.5) x10^3/uL Immature Gran # (Auto) (0.00-0.03) x10^3u/L Absolute Lymphs (auto) (1.0-4.6) x10^3/uL Absolute Monos (auto) (0.0-1.3) x10^3/uL Absolute Nucleated RBC (0.00-0.01) x10^3u/L Lymphocytes % (24.0-44.0) % Monocytes % (0.0-12.0) % Eosinophils % (0.00-5.0) % Basophils % (0.0-0.4) % Absolute Granulocytes (1.4-6.9) x10^3/uL Basophils # (0-0.4) x10^3/uL PT (9.4-12.5) SECONDS INR (0.8-3.0) APTT (25.1-36.5) SECONDS Sodium (137-145) mmol/L Potassium (3.5-5.1) mmol/L Chloride (98-107) mmol/L Carbon Dioxide (22-30) mmol/L Anion Gap (5-15) MEQ/L BUN (9-20) mg/dL Creatinine (0.66-1.25) mg/dL Estimated GFR ML/MIN Glucose (74-106) mg/dL POC Glucometer 143 H (74 to 106) mg/dL Hemoglobin A1c (4.5-6.0) % Calcium (8.4-10.2) mg/dL Total Bilirubin (0.2-1.3) mg/dL AST (17-59) U/L ALT (0-50) U/L Alkaline Phosphatase (38-126) U/L Troponin I < 0.012 (0.000-0.034) ng/mL NT-Pro-B Natriuret Pep (<300) pg/mL Serum Total Protein (6.3-8.2) g/dL Albumin (3.5-5.0) g/dL Urine Color (Yellow) Urine Appearance (Clear) Urine pH (4.6-8.0) Ur Specific [place] (1.005-1.030) Urine Protein (Negative) Urine Glucose (UA) (Negative) mg/dL Urine Ketones (Negative) Urine Blood (Negative) Urine Nitrite (Negative) Urine Bilirubin (Negative) Urine Urobilinogen (0.2) mg/dL Ur Leukocyte Esterase (Negative) Urine Microscopic RBC (0-5) /HPF Urine Microscopic WBC (0-5) /HPF Ur Epithelial Cells (None Seen) /HPF Urine Bacteria (None Seen) /HPF Urine Culture Reflexed (NO) Ur Random Creatinine 185.8 MG/DL Urine Sodium (30-90) mmol/L Urine Opiates Level (NEGATIVE) Ur Methadone (NEGATIVE) Urine Barbiturates (NEGATIVE) Ur Phencyclidine (PCP) (NEGATIVE) Urine Amphetamine (NEGATIVE) U Benzodiazepine Level (NEGATIVE) Urine Cocaine (NEGATIVE) Urine Marijuana (THC) (NEGATIVE) 05/13/23 05/14/23 05/14/23 Range/Units Unknown 04:13 04:13 WBC 8.3 (4.0-10.5) x10^3/uL RBC 4.44 (4.1-5.6) x10^6/uL Hgb 12.9 (12.5-18.0) g/dL Hct 39.9 L (42-50) % MCV 89.9 (78-100) fL MCH 29.1 (26-32) pg MCHC 32.3 (32-36) g/dL RDW 12.7 (11.5-14.0) % Plt Count 229 (150-450) x10^3/uL MPV 9.4 (7.5-11.0) fL Gran % 75.7 H (36.0-66.0) % Immature Gran % (Auto) 0.6 H (0.00-0.4) % Nucleat RBC Rel Count 0.0 (0.00-0.1) % Eos # (Auto) 0.11 (0-0.5) x10^3/uL Immature Gran # (Auto) 0.05 H (0.00-0.03) x10^3u/L Absolute Lymphs (auto) 0.75 L (1.0-4.6) x10^3/uL Absolute Monos (auto) 1.07 (0.0-1.3) x10^3/uL Absolute Nucleated RBC 0.00 (0.00-0.01) x10^3u/L Lymphocytes % 9.0 L (24.0-44.0) % Monocytes % 12.9 H (0.0-12.0) % Eosinophils % 1.3 (0.00-5.0) % Basophils % 0.5 (0.0-0.4) % Absolute Granulocytes 6.28 (1.4-6.9) x10^3/uL Basophils # 0.04 (0-0.4) x10^3/uL PT (9.4-12.5) SECONDS INR (0.8-3.0) APTT (25.1-36.5) SECONDS Sodium 134 L (137-145) mmol/L Potassium 4.2 (3.5-5.1) mmol/L Chloride 98 (98-107) mmol/L Carbon Dioxide 24 (22-30) mmol/L Anion Gap 16.5 H (5-15) MEQ/L BUN 44 H (9-20) mg/dL Creatinine 2.16 H (0.66-1.25) mg/dL Estimated GFR 33.4 ML/MIN Glucose 119 H (74-106) mg/dL POC Glucometer (74 to 106) mg/dL Hemoglobin A1c (4.5-6.0) % Calcium 8.4 (8.4-10.2) mg/dL Total Bilirubin 0.40 (0.2-1.3) mg/dL AST 18 (17-59) U/L ALT 19 (0-50) U/L Alkaline Phosphatase 77 (38-126) U/L Troponin I (0.000-0.034) ng/mL NT-Pro-B Natriuret Pep 332 (<300) pg/mL Serum Total Protein 6.9 (6.3-8.2) g/dL Albumin 3.5 (3.5-5.0) g/dL Urine Color (Yellow) Urine Appearance (Clear) Urine pH (4.6-8.0) Ur Specific [place] (1.005-1.030) Urine Protein (Negative) Urine Glucose (UA) (Negative) mg/dL Urine Ketones (Negative) Urine Blood (Negative) Urine Nitrite (Negative) Urine Bilirubin (Negative) Urine Urobilinogen (0.2) mg/dL Ur Leukocyte Esterase (Negative) Urine Microscopic RBC (0-5) /HPF Urine Microscopic WBC (0-5) /HPF Ur Epithelial Cells (None Seen) /HPF Urine Bacteria (None Seen) /HPF Urine Culture Reflexed (NO) Ur Random Creatinine MG/DL Urine Sodium 22 L (30-90) mmol/L Urine Opiates Level (NEGATIVE) Ur Methadone (NEGATIVE) Urine Barbiturates (NEGATIVE) Ur Phencyclidine (PCP) (NEGATIVE) Urine Amphetamine (NEGATIVE) U Benzodiazepine Level (NEGATIVE) Urine Cocaine (NEGATIVE) Urine Marijuana (THC) (NEGATIVE) 05/14/23 05/14/23 05/14/23 Range/Units 04:13 06:48 08:01 WBC (4.0-10.5) x10^3/uL RBC (4.1-5.6) x10^6/uL Hgb (12.5-18.0) g/dL Hct (42-50) % MCV (78-100) fL MCH (26-32) pg MCHC (32-36) g/dL RDW (11.5-14.0) % Plt Count (150-450) x10^3/uL MPV (7.5-11.0) fL Gran % (36.0-66.0) % Immature Gran % (Auto) (0.00-0.4) % Nucleat RBC Rel Count (0.00-0.1) % Eos # (Auto) (0-0.5) x10^3/uL Immature Gran # (Auto) (0.00-0.03) x10^3u/L Absolute Lymphs (auto) (1.0-4.6) x10^3/uL Absolute Monos (auto) (0.0-1.3) x10^3/uL Absolute Nucleated RBC (0.00-0.01) x10^3u/L Lymphocytes % (24.0-44.0) % Monocytes % (0.0-12.0) % Eosinophils % (0.00-5.0) % Basophils % (0.0-0.4) % Absolute Granulocytes (1.4-6.9) x10^3/uL Basophils # (0-0.4) x10^3/uL PT (9.4-12.5) SECONDS INR (0.8-3.0) APTT (25.1-36.5) SECONDS Sodium (137-145) mmol/L Potassium (3.5-5.1) mmol/L Chloride (98-107) mmol/L Carbon Dioxide (22-30) mmol/L Anion Gap (5-15) MEQ/L BUN (9-20) mg/dL Creatinine (0.66-1.25) mg/dL Estimated GFR ML/MIN Glucose (74-106) mg/dL POC Glucometer 122 H 137 H (74 to 106) mg/dL Hemoglobin A1c 6.17 H (4.5-6.0) % Calcium (8.4-10.2) mg/dL Total Bilirubin (0.2-1.3) mg/dL AST (17-59) U/L ALT (0-50) U/L Alkaline Phosphatase (38-126) U/L Troponin I (0.000-0.034) ng/mL NT-Pro-B Natriuret Pep (<300) pg/mL Serum Total Protein (6.3-8.2) g/dL Albumin (3.5-5.0) g/dL Urine Color (Yellow) Urine Appearance (Clear) Urine pH (4.6-8.0) Ur Specific [place] (1.005-1.030) Urine Protein (Negative) Urine Glucose (UA) (Negative) mg/dL Urine Ketones (Negative) Urine Blood (Negative) Urine Nitrite (Negative) Urine Bilirubin (Negative) Urine Urobilinogen (0.2) mg/dL Ur Leukocyte Esterase (Negative) Urine Microscopic RBC (0-5) /HPF Urine Microscopic WBC (0-5) /HPF Ur Epithelial Cells (None Seen) /HPF Urine Bacteria (None Seen) /HPF Urine Culture Reflexed (NO) Ur Random Creatinine MG/DL Urine Sodium (30-90) mmol/L Urine Opiates Level (NEGATIVE) Ur Methadone (NEGATIVE) Urine Barbiturates (NEGATIVE) Ur Phencyclidine (PCP) (NEGATIVE) Urine Amphetamine (NEGATIVE) U Benzodiazepine Level (NEGATIVE) Urine Cocaine (NEGATIVE) Urine Marijuana (THC) (NEGATIVE) Radiology Exams: Radiology Procedures Category Date Time Status CERVICAL SPINE WO CONTRAST [CT] Stat Exams 05/13/23 10:26 Completed HEAD WITHOUT CONTRAST [CT] Stat Exams 05/13/23 10:26 Completed RIBS UNILATERAL Stat Exams 05/13/23 10:26 Completed SHOULDER Stat Exams 05/13/23 10:27 Completed Multi-Disciplinary Progress Notes: Multi-Disciplinary Progress Notes 05/14/23 10:05 Case Management Note by Cathi Dubose PT RECOMMENDS ROLLATOR FOR PATIENT- ROLLATOR ORDERED THRU [place] FOR DELIVERY HERE TO [facility] D/T FALLS AT HOME Initialized on 05/14/23 10:05 - END OF NOTE 05/14/23 10:03 Physical Therapy Note by Edie(L#[id number])Xiomara PT. WAS SEEN BY P.T. THIS AM. REPORTS FEELING MUCH BETTER. STATES HE DOES HAVE MILD ELIZABETH. PT. AGREEABLE TO WORK W/ P.T. PT. INTERESTED IN OBTAINING ROLLATOR FOR HOME. PT. IN BEDSIDE RECLINER UPON P.T. ARRIVAL TO ROOM. REPORTS DIZZINESS IS MUCH IMPROVED. PERFORMED SIT TO STAND - MOD I- NO C/O DIZZINESS. PT. ADVISED TO PAUSE BEFORE WALKING D/T DIZZINESS HX. PT. AMBULATED ~ 100' W/ ROLLATOR AND SBA-MOD I. PT. EDUCATED RE: USE OF BRAKES BEFORE AND AFTER STANDING WELL HOW TO ACTIVATE THEM TO SLOW PACE OF WALKER. PT. STATED HIS DOORWAYS ARE WIDE ENOUGH TO ACCOMODATE WALKER. REPORTS HE HAS 3 STEPS W/ HR TO ENTER HOME. PT. IS TO D/C HOME AND CONT. P.T. VIA [facility] WHEN STABLE. PT. WOULD BENEFIT FROM ROLLATOR W/ SEAT TO IMPROVE GAIT STABILITY AND DECREASE FALL RISK AT HOME. WILL CONT. P.T. NEEDED UNTIL D/C. Initialized on 05/14/23 10:03 - END OF NOTE 05/14/23 09:49 Case Management Note by Cathi Dubose REFERRAL FAXED TO [facility] PER PATIENT REQUEST. THEY WILL NEED NOTIFIED AT TIME OF DC AT [phone]. THEY WILL NEED FAXED THE DC INSTRUCTIONS, DC MED LIST, AND DC SUMMARY TO [phone] Initialized on 05/14/23 09:49 - END OF NOTE <ANNABELLA GUIDRY - Last Filed: 05/14/23 11:03> Assessment/Plan (1) Acute on chronic renal failure Current Visit: Yes Status: Acute Assessment & Plan: Most likely multifocal due to poor po intake as well multiple nephrotoxic medications. Overnight improvement with IVF and holding his butetanide, lisinopril, spironolactone, HCTZ, metformin, and gabapentin. Baseline creat appears to be around 0.8-1. -Continue IVF/holding nephrotoxic agents/NSAIDS -Noted improvement of creat 2.16 < 3.96 -Continue to monitor renal/lytes Code(s): N17.9 - ACUTE KIDNEY FAILURE, UNSPECIFIED; N18.9 - CHRONIC KIDNEY DISEASE, UNSPECIFIED (2) Dizziness Current Visit: Yes Status: Acute Assessment & Plan: -Mostly likely multifocal hypovolemia/medications -Orthostatic vitals + -Medication list reviewed, will hold nephrotoxic agents as well as gabapentin -CT head reviewed and negative for acute etiology -Gentle hydration -Continue PT/OT while IP, discussed with Case management referral for [facility] for PT at home as well as help with medications. 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 Code(s): R42 - DIZZINESS AND GIDDINESS (3) Orthostatic hypotension Current Visit: Yes Status: Acute Assessment & Plan: -see dizziness Code(s): I95.1 - ORTHOSTATIC HYPOTENSION (4) Syncope and collapse Current Visit: Yes Status: Acute Assessment & Plan: -Most likely secondary to hypotension/medications, CT of the head negative for acute etiology Code(s): R55 - SYNCOPE AND COLLAPSE (5) Hyponatremia Current Visit: Yes Status: Acute Assessment & Plan: Hypo-osmolarm mild, due to hypovolemia, will correct slowly with gentle hydrati on, continue to monitor renal/lytes daily -Improvement will IVF, will continue Code(s): E87.1 - HYPO-OSMOLALITY AND HYPONATREMIA (6) Diabetes Current Visit: No Status: Acute Qualifiers: Diabetes mellitus type: type 2 Diabetes mellitus detention insulin use: with roasterman use Diabetes mellitus complication status: with neurologic complications Diabetes mellitus complication detail: with unspecified neuropathy Qualified Code(s): E11.40 - Type 2 diabetes mellitus with diabetic neuropathy, unspecified; Z79.4 - [facility]DC (current) use of insulin Assessment & Plan: -Type 2, manages with insulin pump -A1c 6.17 indicating good glycemic control -Low carb diet -Continue current management with SSI as needed, basal via insulin pump Code(s): E11.9 - TYPE 2 DIABETES MELLITUS WITHOUT COMPLICATIONS (7) Essential hypertension Current Visit: No Status: Chronic Assessment & Plan: -Stable, patient with orthostatic hypotension on presentation. Will continue to hold home meds HCTZ and lisinopril for now. -Continue Coreg Code(s): I10 - ESSENTIAL (PRIMARY) HYPERTENSION <FRANCISCO MENDEZ - Last Filed: 05/14/23 09:48> Telemedicine Encounter - Telemedicine Encounter Telemedicine Encounter: The entirety of this encounter was performed via Telemedicine" VTE: Heparin PPI: Protonix Dispo: Home with [facility], possibly tomorrow <FRANCISCO MENDEZ - Last Filed: 05/14/23 09:48> - Telemedicine Encounter Telemedicine Encounter: I have personally seen and examined patient and discussed care with Francisco Mendez NP and reviewed pertinent clinical data including history, physical, and diagnostic findings. I agree with the assessment, and treatment plan as described in her original note. Please see below for my summary of findings and any additional assessment and plan, as well as any meaningful corrections or explanations of their note. My portion of visit was conducted entirely via telemedicine. 58-year-old man, admitted with orthostatic hypotension and acute renal failure secondary to polypharmacy and overdiuresis. Nephrotoxic medications held, and creatinine down to 2.2. Despite holding medications, his blood pressure remains well controlled. Not having orthostatic symptoms today. Able to walk to the door without dizziness. We will continue to hold his medications, observe his creatinine and ensure that it is returning to normal. Will likely go home on many fewer antihypertensive medications, likely tomorrow. Have arranged for home health to help with medication management. Annabella Guidry MD, PhD Internal Medicine Hospitalist [facility] <ANNABELLA GUIDRY - Last Filed: 05/14/23 11:03>
[2023-05-14] MEDS ORDERED: FLUOXETINE HCL 10 MG PO SCH (10:00)
[2023-05-14] MEDS ORDERED: ROSUVASTATIN CALCIUM 40 MG PO SCH (10:00)
[2023-05-14] MEDS: HUMULIN R SQ PRN ×2 (11:47→21:18)
[2023-05-14] MEDS ORDERED: Tums EX 750 MG PO PRN (12:57)
[2023-05-15 06:45] VITALS: RESP 16
[2023-05-15 06:56] LABS: Absolute Neutrophil Ct (ANC) 5.12 x10^3/uL (1.4-6.9); BASOPHIL % 0.4 % (0.0-0.4); Basophil (Absolute #) 0.03 x10^3/uL (0-0.4); Eosinophil % 1.3 % (0.00-5.0); Eosinophil (Absolute #) 0.09 x10^3/uL (0-0.5); Hematocrit 38.5 % (42-50); Hemoglobin 12.8 g/dL (12.5-18.0); IMMATURE GRAN # 0.04 x10^3u/L (0.00-0.03); IMMATURE GRAN % 0.6 % (0.00-0.4); Lymphocyte (Absolute #) 0.95 x10^3/uL (1.0-4.6); Lymphocytes % 13.4 % (24.0-44.0); Mean Cell Volume 89.5 fL (78-100); Mean Corpuscular Hemoglobin 29.8 pg (26-32); Mean Corpuscular Hgb Concent. 33.2 g/dL (32-36); Mean Platelet Volume 9.3 fL (7.5-11.0); Monocyte (Absolute #) 0.84 x10^3/uL (0.0-1.3); Monocytes % 11.9 % (0.0-12.0); Neutrophil % 72.4 % (36.0-66.0); Platelet Count 302 x10^3/uL (150-450); Red Cell Distribution Width 12.9 % (11.5-14.0); White Blood Count 7.1 x10^3/uL (4.0-10.5)
[2023-05-15 07:13] LABS: ALBUMIN 3.8 g/dL (3.5-5.0); ALKALINE PHOSPHATASE 77 U/L (38-126); BLOOD UREA NITROGEN 27 mg/dL (9-20); CHLORIDE 99 mmol/L (98-107); Calcium 8.5 mg/dL (8.4-10.2); Carbon Dioxide 26 mmol/L (22-30); Creatinine 1 1.21 mg/dL (0.66-1.25); EST GLOMERULAR FILTRATION RATE > 60.0 ML/MIN; Glucose 148 mg/dL (74-106); Potassium 4.4 mmol/L (3.5-5.1); SGOT/AST 16 U/L (17-59); SGPT/ALT 19 U/L (0-50); SODIUM 136 mmol/L (137-145); Total Protein 7.2 g/dL (6.3-8.2)
[2023-05-15] MEDS: PROZAC 10 MG PO SCH (08:12)
[2023-05-15] MEDS: COREG 12.5 MG PO SCH (08:12)
[2023-05-15] MEDS: Protonix 40MG Tablet PO SCH (08:13)
[2023-05-15] MEDS: BUSPAR 5 MG PO SCH (08:13)
[2023-05-15] MEDS: ZOCOR 20MG PO SCH (08:13)
[2023-05-15] MEDS: HEPARIN 5000 UNITS/0.5 ML (HIGH RISK MED) SQ SCH (08:13)
[2023-05-15] MEDS ORDERED: DICLOFENAC SODIUM TP SCH (10:00)
--- NOTE | 2023-05-15 11:25 | PCM.DS ---
Discharge Summary Date of Admission: 05/13/23 13:18 Date of Discharge: 05/15/23 Admitting Physician: ANNABELLA TRUJILLO MD Primary Care Provider: BROOKLYN FRITZ Allergies Allergies No Known Drug Allergies Allergy (Verified 05/13/23 10:05) Hospital Summary - Hospital Course Hospital Course: Mr Mckeon is a 58 year old male with a pmhx of CKD, HLD, COPD, Panic disorder, PVD, peripheral neuropathy, DM, GERD, HTN, and recurrent falls (with multiple ER visits/hospitalizations) who presented to ER on 05/13/23 with orthostatic hypotension and acute renal failure secondary to polypharmacy and overdiuresis. Patient has had multiple episodes of dizziness with falls and subsequent ER visits. During hospitalization, patient underwent CT imaging of the head and c ervical spine due to the ground level fall he experienced during this episode and no acute abnormalities were found. Ribs and left shoulder xrays were also negative. All nephrotoxic medications were held (butetanide, lisinopril, spironolactone, HCTZ) as well as his metformin and gabapentin. Gentle hydration was provided with notable improvement of his creat levels from 3.96 now to near baseline at 1.21. Despite holding medications, his blood pressure remains well controlled. Physical therapy has worked with patient and he is no longer having orthostatic symptoms and able to walk without dizziness. Patient has been provided with a rollator walker for home use. Case management has set up [facility] w lexus ortiz to help with PT/ medication management. He has been advised to continue holding butetanide, lisinopril, spironolactone, HCTZ until follow up with PCP, and to keep a BP log at home with at least one reading a day. Patient states he does have a BP monitor at home. Gabapentin and Metformin have been resumed. (1) Acute on chronic renal failure Current Visit: Yes Status: Acute Assessment & Plan: Most likely multifocal due to poor po intake as well multiple nephrotoxic medications. Overnight improvement with IVF and holding his butetanide, lisinopril, spironolactone, HCTZ, metformin, and gabapentin. Baseline creat appears to be around 0.8-1. -Continue IVF/holding nephrotoxic agents/NSAIDS -Noted improvement of creat 1.21<2.16 < 3.96 Code(s): N17.9 - ACUTE KIDNEY FAILURE, UNSPECIFIED; N18.9 - CHRONIC KIDNEY DISEASE, UNSPECIFIED (2) Dizziness Current Visit: Yes Status: Acute Assessment & Plan: -Mostly likely multifocal hypovolemia/medications -Orthostatic vitals + -Medication list reviewed, will hold nephrotoxic agents as well as gabapentin -CT head reviewed and negative for acute etiology -Gentle hydration -Continue PT/OT while IP, discussed with Case management referral for [facility] for PT at home as well as help with medications. 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 -Pt advised to keep BP log at home until f/u with PCP Code(s): R42 - DIZZINESS AND GIDDINESS (3) Orthostatic hypotension Current Visit: Yes Status: Acute Assessment & Plan: -see dizziness Code(s): I95.1 - ORTHOSTATIC HYPOTENSION (4) Syncope and collapse Current Visit: Yes Status: Acute Assessment & Plan: -Most likely secondary to hypotension/medications, CT of the head negative for acute etiology Code(s): R55 - SYNCOPE AND COLLAPSE (5) Hyponatremia Current Visit: Yes Status: Acute Assessment & Plan: Hypo-osmolarm mild, due to hypovolemia, will correct slowly with gentle hydration, continue to monitor renal/lytes daily -Improvement will IVF, will continue Code(s): E87.1 - HYPO-OSMOLALITY AND HYPONATREMIA (6) Diabetes Current Visit: No Status: Acute Qualifiers: Diabetes mellitus type: type 2 Diabetes mellitus prison insulin use: with rodent exterminator use Diabetes mellitus complication status: with neurologic complications Diabetes mellitus complication detail: with unspecified neuropathy Qualified Code(s): E11.40 - Type 2 diabetes mellitus with diabetic neuropathy, unspecified; Z79.4 - senior living (current) use of insulin Assessment & Plan: -Type 2, manages with insulin pump -A1c 6.17 indicating good glycemic control -Low carb diet -Continue current management with SSI as needed, basal via insulin pump Code(s): E11.9 - TYPE 2 DIABETES MELLITUS WITHOUT COMPLICATIONS (7) Essential hypertension Current Visit: No Status: Chronic Assessment & Plan: -Stable, patient with orthostatic hypotension on presentation. Will continue to hold home meds HCTZ and lisinopril for now. -Continue Coreg I have spent > 45 minutes planning and coordinating safe discharge of this patient. - Vitals & Intake/Output Vital Signs: Vital Signs Temperature 97.9 F 05/15/23 06:42 Pulse Rate 72 05/15/23 06:42 Respiratory Rate 16 05/15/23 06:42 Blood Pressure 111/73 05/15/23 06:42 O2 Sat by Pulse Oximetry 97 05/15/23 06:42 Intake & Output: Intake & Output 05/12/23 05/13/23 05/14/23 05/15/23 11:59 11:59 11:59 11:59 Intake Total 1514 2260 Output Total 3300 1500 Balance -1786 760 Weight 117.7 kg 117.1 kg - Lab Result Diagrams: 05/15/23 06:30 05/15/23 06:30 Lab Results-Last 24 Hrs: Lab Results-Last 24 Hours 05/14/23 05/14/23 05/14/23 Range/Units 11:04 15:44 20:41 WBC (4.0-10.5) x10^3/uL RBC (4.1-5.6) x10^6/uL Hgb (12.5-18.0) g/dL Hct (42-50) % MCV (78-100) fL MCH (26-32) pg MCHC (32-36) g/dL RDW (11.5-14.0) % Plt Count (150-450) x10^3/uL MPV (7.5-11.0) fL Gran % (36.0-66.0) % Immature Gran % (Auto) (0.00-0.4) % Nucleat RBC Rel Count (0.00-0.1) % Eos # (Auto) (0-0.5) x10^3/uL Immature Gran # (Auto) (0.00-0.03) x10^3u/L Absolute Lymphs (auto) (1.0-4.6) x10^3/uL Absolute Monos (auto) (0.0-1.3) x10^3/uL Absolute Nucleated RBC (0.00-0.01) x10^3u/L Lymphocytes % (24.0-44.0) % Monocytes % (0.0-12.0) % Eosinophils % (0.00-5.0) % Basophils % (0.0-0.4) % Absolute Granulocytes (1.4-6.9) x10^3/uL Basophils # (0-0.4) x10^3/uL Sodium (137-145) mmol/L Potassium (3.5-5.1) mmol/L Chloride (98-107) mmol/L Carbon Dioxide (22-30) mmol/L Anion Gap (5-15) MEQ/L BUN (9-20) mg/dL Creatinine (0.66-1.25) mg/dL Estimated GFR ML/MIN Glucose (74-106) mg/dL POC Glucometer 230 H 152 H 219 H (74 to 106) mg/dL Calcium (8.4-10.2) mg/dL Total Bilirubin (0.2-1.3) mg/dL AST (17-59) U/L ALT (0-50) U/L Alkaline Phosphatase (38-126) U/L Serum Total Protein (6.3-8.2) g/dL Albumin (3.5-5.0) g/dL 05/15/23 05/15/23 05/15/23 Range/Units 06:29 06:30 06:30 WBC 7.1 (4.0-10.5) x10^3/uL RBC 4.30 (4.1-5.6) x10^6/uL Hgb 12.8 (12.5-18.0) g/dL Hct 38.5 L (42-50) % MCV 89.5 (78-100) fL MCH 29.8 (26-32) pg MCHC 33.2 (32-36) g/dL RDW 12.9 (11.5-14.0) % Plt Count 302 (150-450) x10^3/uL MPV 9.3 (7.5-11.0) fL Gran % 72.4 H (36.0-66.0) % Immature Gran % (Auto) 0.6 H (0.00-0.4) % Nucleat RBC Rel Count 0.0 (0.00-0.1) % Eos # (Auto) 0.09 (0-0.5) x10^3/uL Immature Gran # (Auto) 0.04 H (0.00-0.03) x10^3u/L Absolute Lymphs (auto) 0.95 L (1.0-4.6) x10^3/uL Absolute Monos (auto) 0.84 (0.0-1.3) x10^3/uL Absolute Nucleated RBC 0.00 (0.00-0.01) x10^3u/L Lymphocytes % 13.4 L (24.0-44.0) % Monocytes % 11.9 (0.0-12.0) % Eosinophils % 1.3 (0.00-5.0) % Basophils % 0.4 (0.0-0.4) % Absolute Granulocytes 5.12 (1.4-6.9) x10^3/uL Basophils # 0.03 (0-0.4) x10^3/uL Sodium 136 L (137-145) mmol/L Potassium 4.4 (3.5-5.1) mmol/L Chloride 99 (98-107) mmol/L Carbon Dioxide 26 (22-30) mmol/L Anion Gap 16.0 H (5-15) MEQ/L BUN 27 H (9-20) mg/dL Creatinine 1.21 (0.66-1.25) mg/dL Estimated GFR > 60.0 ML/MIN Glucose 148 H (74-106) mg/dL POC Glucometer 141 H (74 to 106) mg/dL Calcium 8.5 (8.4-10.2) mg/dL Total Bilirubin 0.40 (0.2-1.3) mg/dL AST 16 L (17-59) U/L ALT 19 (0-50) U/L Alkaline Phosphatase 77 (38-126) U/L Serum Total Protein 7.2 (6.3-8.2) g/dL Albumin 3.8 (3.5-5.0) g/dL Micro Results-Entire Visit: Microbiology 05/13/23 12:28 Urine Culture - Final Catherized NO GROWTH 05/13/23 11:24 Blood Culture - Preliminary Blood 05/13/23 11:24 Blood Culture - Preliminary Blood Accuchecks Date 05/15/23 Date 05/14/23 Date 05/14/23 Date 05/14/23 Time 06:41 Time 20:45 Time 15:51 Time 11:27 - Radiology Exams Ordered Rad Exams-Entire Visit: Radiology Procedures Category Date Time Status CERVICAL SPINE WO CONTRAST [CT] Stat Exams 05/13/23 10:26 Completed HEAD WITHOUT CONTRAST [CT] Stat Exams 05/13/23 10:26 Completed RIBS UNILATERAL Stat Exams 05/13/23 10:26 Completed SHOULDER Stat Exams 05/13/23 10:27 Completed - Procedures and Test Procedures and Tests throughout Hospitalization: Therapy Orders & Screens 05/13/23 13:27 EKG REPEAT IN AM Comment: 05/13/23 15:25 PT Eval & Treat (MD Order) ONCE Reason for Eval:: Dizziness/ recurrent falls Diagnosis: Dizziness/Falls OT Eval and Treat (MD Order) ONCE Comment: Physician Instructions: Reason For Exam: 05/13/23 15:27 ST Screen per Nursing Assess ONCE Comment: Protocol Order Physician Instructions: Greater than [address] Admission Screening Reason For Exam: Triggered on Admission Diagnosis: Dizziness/Falls CVA/Dyshpagia/Aphasia: No Cognitive Deficits: No Dehydration/Nutrition Deficit: Yes: dehydration Reflux: No Oral-Motor Difficulties: No Pneumonia: No Correction Resident: No Total Points: 5 05/13/23 16:55 ST Screen per Nursing Assess ONCE Comment: Protocol Order Physician Instructions: Greater than [address] Admission Screening Reason For Exam: Triggered on Admission Diagnosis: Dizziness/Falls CVA/Dyshpagia/Aphasia: No Cognitive Deficits: No Dehydration/Nutrition Deficit: Yes: dehydration Reflux: No Oral-Motor Difficulties: No Pneumonia: No Correction Resident: No Total Points: 5 Discharge Exam General Appearance: no apparent distress Neurologic Exam: alert, oriented x 3 Eye Exam: PERRL Ears, Nose, Throat Exam: normal ENT inspection Neck Exam: normal inspection Respiratory Exam: normal breath sounds Cardiovascular Exam: regular rate/rhythm Gastrointestinal/Abdomen Exam: soft, normal bowel sounds Extremity Exam: normal inspection Skin Exam: normal color, warm, dry Final Diagnosis/Problem List - Final Discharge Diagnosis/Problem (1) Acute on chronic renal failure Current Visit: Yes Status: Chronic Code(s): N17.9 - ACUTE KIDNEY FAILURE, UNSPECIFIED; N18.9 - CHRONIC KIDNEY DISEASE, UNSPECIFIED (2) Dizziness Current Visit: Yes Status: Resolved Code(s): R42 - DIZZINESS AND GIDDINESS (3) Orthostatic hypotension Current Visit: Yes Status: Resolved Code(s): I95.1 - ORTHOSTATIC HYPOTENSION (4) Syncope and collapse Current Visit: Yes Status: Resolved Code(s): R55 - SYNCOPE AND COLLAPSE (5) Hyponatremia Current Visit: Yes Status: Resolved Code(s): E87.1 - HYPO-OSMOLALITY AND HYPONATREMIA (6) Diabetes Current Visit: No Status: Chronic Code(s): E11.9 - TYPE 2 DIABETES MELLITUS WITHOUT COMPLICATIONS (7) Essential hypertension Current Visit: No Status: Chronic Code(s): I10 - ESSENTIAL (PRIMARY) HYPERTENSION Telemedicine Encounter - Telemedicine Encounter Telemedicine Encounter: The entirety of this encounter was performed via Telemedicine" - Discharge Disposition: Home, Self-Care Condition: Stable Prescriptions: Continue Metformin HCl 1000 mg [Glucophage 1000 MG] 1,000 mg PO BID Nitroglycerin [Nitrostat] 0.4 mg SL Q5MIN PRN MR X 3 PRN PRN Reason: Chest Pain Gabapentin [Neurontin] 600 mg PO BID Rosuvastatin Calcium [Crestor] 40 mg PO DAILY Buspirone HCl 5 mg [Buspar 5 mg] 5 mg PO BID Fluoxetine HCl [Prozac] 10 mg PO DAILY PANTOPRAZOLE 40 mg Tablet [Protonix 40MG Tablet] 40 mg PO DAILY Semaglutide [Ozempic] 2 mg SQ WEEKLY Insulin Lispro [Humalog Kwikpen U-100] 100 unit SQ UD Lactulose [Lactulose 20 gm/30Ml Ud Cup] 10 gm PO BIDPRN PRN PRN Reason: Constipation carvediloL [Carvedilol] 25 mg PO BID Discontinued Hydrochlorothiazide 25 mg [hydroDIURIL 25 MG] 12.5 mg PO DAILY Dapagliflozin Propanediol [Farxiga] 10 mg PO DAILY Bumetanide 1 mg [Bumex 1 mg] 1 mg PO DAILY Potassium Chloride [Klor-Con 10] 10 meq PO BID Lisinopril 20 mg [Zestril 20 MG] 20 mg PO BID Spironolactone 25 mg [Aldactone 25 MG] 25 mg PO DAILY Outpatient Orders: BMP Time Frame: 3 Days, Facility: [facility], Location: LABORATORY Additional Instructions: [facility] THEY WILL CONTACT YOU TO SET UP A TIME TO COME SEE YOU. THEIR PHONE NUMBER IS [phone] IF YOU NEED SOMETHING BEFORE THEY START SERVICES Follow up with: BROOKLYN FRITZ MD [Primary Care Provider] - 05/23/23 2:15 pm
[2023-05-15 11:26] VITALS: BP 125/59; PULSE 65; TEMP 98; O2SAT 100
== END 2023-05-15 13:45 | disposition home health service (06) ==
LOC: ED 10:02 → MED SURG 13:18
PROVIDERS: ADMIT Internal Medicine; ATTEND Internal Medicine
DX: I12.9 Hypertensive chronic kidney disease with stage 1 through stage 4 chronic kidney disease, or unspecified chronic kidney disease (principal); E11.22 Type 2 diabetes mellitus with diabetic chronic kidney disease; N18.9 Chronic kidney disease, unspecified; N17.9 Acute kidney failure, unspecified; R42 Dizziness and giddiness; I95.1 Orthostatic hypotension; E87.1 Hypo-osmolality and hyponatremia; E11.40 Type 2 diabetes mellitus with diabetic neuropathy, unspecified; E78.5 Hyperlipidemia, unspecified; J44.9 Chronic obstructive pulmonary disease, unspecified; R29.6 Repeated falls; Z79.899 Other long term (current) drug therapy; Z79.4 Long term (current) use of insulin; Z20.828 Contact with and (suspected) exposure to other viral communicable diseases
CPT/HCPCS: 36000; 36415; 70450; 71100; 72125; 73030; 80053; 80307; 81001; 82077; 82570; 82947; 83036; 83880; 84300; 84484; 85025; 85610; 85730; 87040; 87086; 93005; 93041; 94760; 96374; 97162; 97165; 97530; 99285; 99291; P9612; J1644; J1815; J2405; Q3014; A9270-GY

== ENCOUNTER 2023-06-18 15:05 | Inpatient (IN) | payer MEDICARE ==
[2023-06-18 15:27] LABS: Absolute Neutrophil Ct (ANC) 7.46 x10^3/uL (1.4-6.9); BASOPHIL % 0.3 % (0.0-0.4); Basophil (Absolute #) 0.03 x10^3/uL (0-0.4); Eosinophil % 1.1 % (0.00-5.0); Hematocrit 34.3 % (42-50); Hemoglobin 11.3 g/dL (12.5-18.0); IMMATURE GRAN # 0.03 x10^3u/L (0.00-0.03); IMMATURE GRAN % 0.3 % (0.00-0.4); Lymphocyte (Absolute #) 0.93 x10^3/uL (1.0-4.6); Lymphocytes % 9.9 % (24.0-44.0); Mean Cell Volume 84.9 fL (78-100); Mean Corpuscular Hgb Concent. 32.9 g/dL (32-36); Mean Platelet Volume 9.1 fL (7.5-11.0); Monocyte (Absolute #) 0.85 x10^3/uL (0.0-1.3); Neutrophil % 79.4 % (36.0-66.0); Platelet Count 324 x10^3/uL (150-450); Red Blood Count 4.04 x10^6/uL (4.1-5.6); Red Cell Distribution Width 13.1 % (11.5-14.0); White Blood Count 9.4 x10^3/uL (4.0-10.5)
[2023-06-18 15:43] LABS: ALBUMIN 4.1 g/dL (3.5-5.0); ALKALINE PHOSPHATASE 91 U/L (38-126); ANION GAP 15.9 MEQ/L (5-15); BLOOD UREA NITROGEN 17 mg/dL (9-20); CHLORIDE 100 mmol/L (98-107); Calcium 9.3 mg/dL (8.4-10.2); Carbon Dioxide 25 mmol/L (22-30); Creatinine 1 1.09 mg/dL (0.66-1.25); EST GLOMERULAR FILTRATION RATE > 60.0 ML/MIN; Glucose 100 mg/dL (74-106); Potassium 4.2 mmol/L (3.5-5.1); SGOT/AST 31 U/L (17-59); SGPT/ALT 43 U/L (0-50); SODIUM 136 mmol/L (137-145); Total Protein 7.3 g/dL (6.3-8.2)
[2023-06-18 15:53] LABS: NT PRO BNPII 831 pg/mL (<300); TROPONIN < 0.012 ng/mL (0.000-0.034)
--- NOTE | 2023-06-18 16:05 | XRAY ---
CLINICAL HISTORY:pain COMPARISON:None TECHNIQUE:X-ray of the chest was performed in frontal projection. FINDINGS: Exaggerated bronchovascular markings, otherwise the lungs are well aerated. No hydrothorax or pneumothorax seen. No fracture seen. There is no evidence of any focal area of consolidation. Bilateral hilar calcifications likely calcified lymph nodes. The heart size is within normal limits. Blunting of right costophrenic angle. IMPRESSION: 1. Exaggerated bronchovascular markings, otherwise the lungs are well aerated. 2. Blunting of right costophrenic angle. minimal effusion to be considered. Electronically Signed by: Carlitos Abbott MD. (06/18/2023 15:04:06 SPECIAL EDUCATION EDUCATIONAL ASSISTANT)
--- NOTE | 2023-06-18 16:28 | ERPHSYRPT ---
- History of Present Illness Time Seen by Provider: 06/18/23 15:25 Historian: patient Exam Limitations: no limitations Patient Subjective Stated Complaint: C/O Chest pain for the past 3-4 days that has become increasingly worse today Triage Nursing Assessment: Patient brought back to ER in a W/C. He is alert and oriented. No SOB or cough noted. Skin tone normal. MEZA WNL. No edema. Scattered scabs noted to BUE, BLE, and 2 bandaids on abdomen that he reports are small abrasions he is treating himself. Patient is diabetic with dexcom noted for b lood sugar checks; patient indicates he checked it approx one hour ago and it was 110. Physician History: Patient is a 58-year-old male with a history of diabetes BMI of 35.2 presents to our ED with progressive chest pain. Patient reports the symptoms started about 3 to 4 days ago. Symptoms have been progressive. Pain described as an ache that is substernal. No radiation. No specific worsening or improving factors. Patient denies a history of the same. No associated nausea vomiting or diaphoresis. Symptoms are moderate in intensity. No trauma no fever. Patient voices no other complaints or concerns at this time. Portions of this note were created with voice recognition technology. There may be grammatical, spelling, punctuation or sound alike errors Timing/Duration: day(s) (3 to 4 days) Activities at Onset: none Quality: aching Location: substernal Chest Pain Radiation: no radiation Severity of Pain-Max: moderate Severity of Pain-Current: mild Modifying Factors: Improves With: nothing Associated Symptoms: denies symptoms Prior Chest Pain/Cardiac Workup: no prior chest pain Nitro Today/Relief: no nitro taken today Aspirin Treatment Today: no aspirin today Allergies/Adverse Reactions: No Known Drug Allergies Allergy (Verified 06/18/23 15:11) Home Medications: Metformin HCl 1000 mg [Glucophage 1000 MG] 1,000 mg PO BID 05/17/15 [History] Nitroglycerin [Nitrostat] 0.4 mg SL Q5MIN PRN MR X 3 PRN 07/03/15 [History] Gabapentin [Neurontin] 600 mg PO BID 07/24/20 [History] Rosuvastatin Calcium [Crestor] 40 mg PO DAILY 07/24/20 [History] Buspirone HCl 5 mg [Buspar 5 mg] 5 mg PO BID 06/04/21 [History] Fluoxetine HCl [Prozac] 10 mg PO DAILY 12/18/22 [History] Insulin Lispro [Humalog Kwikpen U-100] 100 unit SQ UD 12/18/22 [History] PANTOPRAZOLE 40 mg Tablet [Protonix 40MG Tablet] 40 mg PO DAILY 12/18/22 [History] Semaglutide [Ozempic] 2 mg SQ WEEKLY 12/18/22 [History] carvediloL [Carvedilol] 25 mg PO BID 05/07/23 [History] Hx Tetanus, Diphtheria Vaccination/Date Given: Yes Hx Influenza Vaccination/Date Given: No Hx Pneumococcal Vaccination/Date Given: No Immunizations Up to Date: Yes Travel Risk - International Travel Have you traveled outside of the country in past 3 weeks: No - Coronavirus Screening Are you exhibiting any of the following symptoms?: No Close contact with a COVID-19 positive Pt in past 14-21 Days: No - Vaccine Status Have you recieved a Covid-19 vaccination: 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[facility]: [facility] - Vaccination Dates Date of 2cond Vaccination (if applicable): 2020 - Review of Systems Constitutional: No Symptoms, No Fever, No Chills Eyes: No Symptoms Ears, Nose, & Throat: No Symptoms Respiratory: No Symptoms, No Cough, No Dyspnea Cardiac: No Symptoms, No Chest Pain, No Edema, No Syncope Abdominal/Gastrointestinal: No Symptoms, No Abdominal Pain, No Nausea, No Vomiting, No Diarrhea Genitourinary Symptoms: No Symptoms, No Dysuria Musculoskeletal: No Symptoms, No Back Pain, No Neck Pain Skin: No Symptoms, No Rash Neurological: No Symptoms, No Dizziness, No Focal Weakness, No Sensory Changes Psychological: No Symptoms Endocrine: No Symptoms Hematologic/Lymphatic: No Symptoms Immunological/Allergic: No Symptoms All Other Systems: Reviewed and Negative - Past Medical History Pertinent Past Medical History: Yes Neurological History: Peripheral Neuropathy, Seizures, Stroke ENT History: No Pertinent History Cardiac History: Coronary Artery Disease, High Cholesterol, Hypertension, Peripheral Vascular Disease Respiratory History: COPD, Sleep Apnea, Other Endocrine Medical History: Diabetes Type II Musculoskeletal History: Fractures, Osteoarthritis GI Medical History: Esophageal Disorder, GERD, Pancreatitis History: No Pertinent History Psycho-Social History: Anxiety, Depression, Panic Disorder Male Reproductive Disorders: Prostate Problems Other Medical History: COVID IN 2019. FX LEFT FOREARM AND ANKLE A CHILD. LOWER EXTREMITY CELLULITIS - Past Surgical History Past Surgical History: Yes Neuro Surgical History: No Pertinent History Cardiac: Cardiac Catheterization Respiratory: No Pertinent History Gastrointestinal: No Pertinent History Genitourinary: No Pertinent History Musculoskeletal: No Pertinent History Male Surgical History: No Pertinent History Other Surgical History: uvula removed. carpal tunnel right hand - Social History Smoking Status: Former smoker Exposure to second hand smoke: No Alcohol Use: None Drug Use: none Patient Lives Alone: Yes Significant Family History: heart disease, diabetes, hypertension - Nursing Vital Signs Nursing Vital Signs: Initial Vital Signs Pulse Rate 76 06/18/23 15:07 Respiratory Rate 14 06/18/23 15:07 Blood Pressure 157/102 06/18/23 15:07 Pain Scale Pain Intensity 5 - Physical Exam General Appearance: no apparent distress, alert Eye Exam: PERRL/EOMI, eyes nml inspection Ears, Nose, Throat Exam: normal ENT inspection, moist mucous membranes Neck Exam: normal inspection, non-tender, supple, full range of motion Respiratory Exam: normal breath sounds, lungs clear, No respiratory distress Cardiovascular Exam: regular rate/rhythm, normal heart sounds Gastrointestinal/Abdomen Exam: soft, No tenderness, No mass Back Exam: normal inspection, No CVA tenderness, No vertebral tenderness Extremity Exam: normal inspection, normal range of motion Neurologic Exam: alert, oriented x 3, cooperative, normal mood/affect, sensation nml, No motor deficits Skin Exam: normal color, warm, dry Lymphatic Exam: No adenopathy SpO2 Interpretation: normal SpO2: 98 O2 Delivery: Room Air - Course Nursing assessment & vital signs reviewed: Yes EKG Interpreted by Me: RATE, Sinus Rhythm, NORMAL AXIS, NORMAL INTERVALS - Radiology Exams Chest X-ray Interpretation: Teleradiologist Report (Exaggerated bronchovascular markings otherwise the lungs are well aerated. Blunting of the right costophrenic angle minimal effusion to be considered) Ordered Tests: Active Orders 24 hr Category Date Time Status Restaurant Host STAT Care 06/18/23 15:14 Active EKG-ER Only STAT Care 06/18/23 15:14 Active IV Insertion STAT Care 06/18/23 15:14 Active Pulse Oximetry (ED) STAT Care 06/18/23 15:14 Active CHEST 1 VIEW (PORTABLE) Stat Exams 06/18/23 15:14 Completed CBC W DIFF Stat Lab 06/18/23 15:10 Completed CMP Stat Lab 06/18/23 15:10 Completed NT PRO BNPII Stat Lab 06/18/23 15:10 Completed TROPONIN Q4H Lab 06/18/23 15:10 Completed TROPONIN Q4H Lab 06/18/23 19:15 Ordered TROPONIN Q4H Lab 06/18/23 23:15 Ordered Medication Summary Discontinued Medications Generic Name Dose Route Start Last Admin Trade Name Yamilq PRN Reason Stop Dose Admin Aspirin 324 mg 06/18/23 16:40 06/18/23 16:53 Aspirin 81 Mg Tab.Chew PO 06/18/23 16:41 324 mg STAT ONE Administration Aspirin Confirm 06/18/23 16:52 Aspirin 81 Mg Tab.Chew Administered 06/18/23 16:53 Dose 324 mg .ROUTE .STK-MED ONE Nitroglycerin 1 gm 06/18/23 16:41 06/18/23 16:53 Nitroglycerin 1 Gm Packet TOP 06/18/23 16:42 1 gm STAT ONE Administration Nitroglycerin Confirm 06/18/23 16:53 Nitroglycerin 1 Gm Packet Administered 06/18/23 16:54 Dose 1 gm .ROUTE .STK-MED ONE Lab/Rad Data: Laboratory Result Diagrams 06/18/23 15:10 06/18/23 15:10 Laboratory Results 06/18/23 06/18/23 06/18/23 Range/Units 15:10 15:10 15:10 WBC 9.4 (4.0-10.5) x10^3/uL RBC 4.04 L (4.1-5.6) x10^6/uL Hgb 11.3 L (12.5-18.0) g/dL Hct 34.3 L (42-50) % MCV 84.9 (78-100) fL MCH 28.0 (26-32) pg MCHC 32.9 (32-36) g/dL RDW 13.1 (11.5-14.0) % Plt Count 324 (150-450) x10^3/uL MPV 9.1 (7.5-11.0) fL Gran % 79.4 H (36.0-66.0) % Immature Gran % (Auto) 0.3 (0.00-0.4) % Nucleat RBC Rel Count 0.0 (0.00-0.1) % Eos # (Auto) 0.10 (0-0.5) x10^3/uL Immature Gran # (Auto) 0.03 (0.00-0.03) x10^3u/L Absolute Lymphs (auto) 0.93 L (1.0-4.6) x10^3/uL Absolute Monos (auto) 0.85 (0.0-1.3) x10^3/uL Absolute Nucleated RBC 0.00 (0.00-0.01) x10^3u/L Lymphocytes % 9.9 L (24.0-44.0) % Monocytes % 9.0 (0.0-12.0) % Eosinophils % 1.1 (0.00-5.0) % Basophils % 0.3 (0.0-0.4) % Absolute Granulocytes 7.46 H (1.4-6.9) x10^3/uL Basophils # 0.03 (0-0.4) x10^3/uL Sodium 136 L (137-145) mmol/L Potassium 4.2 (3.5-5.1) mmol/L Chloride 100 (98-107) mmol/L Carbon Dioxide 25 (22-30) mmol/L Anion Gap 15.9 H (5-15) MEQ/L BUN 17 (9-20) mg/dL Creatinine 1.09 (0.66-1.25) mg/dL Estimated GFR > 60.0 ML/MIN Glucose 100 (74-106) mg/dL Calcium 9.3 (8.4-10.2) mg/dL Total Bilirubin 0.50 (0.2-1.3) mg/dL AST 31 (17-59) U/L ALT 43 (0-50) U/L Alkaline Phosphatase 91 (38-126) U/L Troponin I < 0.012 (0.000-0.034) ng/mL NT-Pro-B Natriuret Pep 831 (<300) pg/mL Serum Total Protein 7.3 (6.3-8.2) g/dL Albumin 4.1 (3.5-5.0) g/dL - Progress Progress: improved Air Movement: good Progress Note: Patient will be admitted for further evaluation and treatment. Patient has a h eart score of 4. Moderate suspicion. EKG normal. Age between 45 and 63. Risk factors include diabetes hypertension hypercholesterolemia BMI greater than 30. Patient admits to a significant heart history but is unable to recall specifically his cardiac diagnoses 06/18/23 16:37 Case discussed with hospitalist who excepts admission to observation at 4:55 PM. 06/18/23 16:57 Patient is a 58-year-old male with a history of hypertension diabetes hyperlipidemia coronary artery disease presents to our ED with a 3 to 4-day history of progressive chest pain. EKG normal sinus rhythm. Chest x-ray unremarkable. CBC CMP nonremarkable. Initial troponin negative. Patient received aspirin and nitroglycerin. Complexity of problems addressed is moderate acute complicated Complex of data reviewed and analyzed extensive. Test ordered test reviewed and analyzed. Clinical correlation made between imaging study laboratory findings and history and physical examination plan of care/management discussed with hospitalist who excepts admission to observation. Risk complication and or risk morbidity/mortality of patient management is high. Patient requires hospitalization for further evaluation and treatment. Vital stable. Time spent to admit patient approximately 15 minutes. Plan of care established for shared decision making. Portions of this note were created with voice recognition technology. There may be grammatical, spelling, punctuation or sound alike errors 06/18/23 17:02 Blood Culture(s) Obtained: No Antibiotics given: No Discussed with : Other Will see patient in: hospital (observation) Counseled pt/family regarding: lab results, diagnosis, rad results - Departure Departure Disposition: Observation Clinical Impression: Chest pain, ACS (acute coronary syndrome) Condition: Stable Critical Care Time: No Referrals: BROOKLYN FRITZ MD [Primary Care Provider] - Follow up/PCP as directed
[2023-06-18] MEDS ORDERED: BABY ASPIRIN 81 MG CHEW PO ONE (16:40)
[2023-06-18] MEDS ORDERED: NITRO-BID 2% UD PACKETS TOP ONE (16:41)
[2023-06-18] MEDS ORDERED: BABY ASPIRIN 81 MG CHEW ONE (16:52)
[2023-06-18] MEDS ORDERED: NITRO-BID 2% UD PACKETS ONE (16:53)
--- NOTE | 2023-06-18 17:33 | PCM.HP ---
History of Present Illness - Chief Complaint Chief Complaint: Chest pain/ACS History of Present Illness: is a 58 year old male with a pmhx of COPD,GERD, HTN, HLD, PAD, CKD, pancreatitis, and DM who presented to the ED 06/18/23 with complaints of progressive non-radiating substernal chest pain. Patient reports that the pain initially started two days ago but increased in severity today. He describes the pain as a constant, severe dull squeezing pain with associated dizziness. Aggra vating factors include movement and deep inhalation. Relieving factors are laying down, and nitro. He sees Dr. Paiz, somewhat of a poor historian, states he may have had an HI and a stroke in the past, but not sure. No associated N/V or diaphroesis. In ER, patient was hypertensive, normotensive, afebrile, with spo2@ 95% on RA. CXR findings include exaggerated bronchovascular markings and blunting of the right costophrenic angle, minimal effusion to be considered. Lab findings unremarkable with trops WNL, BNP at 831 and EKG noted without STelevation/deviations/NS. Patient was given ASA and nitro with noted relief. Patient now stating pain is 1/10 on numerical pain scale compared to 7/10 when he arrived. PCP: Clifford Cardiology: Izabel Nephrology: Luis Miguel Code Status: Full Code - Review of Systems Constitutional: Weakness Eyes: No Symptoms Ears, Nose, & Throat: No Symptoms Respiratory: Short Of Breath (exertional) Cardiac: Chest Pain (dull/ squeezing, non-radiating) Abdominal/Gastrointestinal: No Symptoms Genitourinary Symptoms: No Symptoms Musculoskeletal: No Symptoms Skin: No Symptoms Neurological: No Symptoms Psychological: No Symptoms Endocrine: No Symptoms Hematologic/Lymphatic: No Symptoms Immunological/Allergic: No Symptoms Medications & Allergies Home Medications: Home Medication List Metformin HCl 1000 mg [Glucophage 1000 MG] 1,000 mg PO BID 05/17/15 [History Co nfirmed 06/18/23] Nitroglycerin [Nitrostat] 0.4 mg SL Q5MIN PRN MR X 3 PRN 07/03/15 [History Confirmed 06/18/23] Gabapentin [Neurontin] 600 mg PO BID 07/24/20 [History Confirmed 06/18/23] Rosuvastatin Calcium [Crestor] 40 mg PO DAILY 07/24/20 [History Confirmed 06/18/23] Buspirone HCl 5 mg [Buspar 5 mg] 5 mg PO BID 06/04/21 [History Confirmed 06/18/23] Fluoxetine HCl [Prozac] 10 mg PO DAILY 12/18/22 [History Confirmed 06/18/23] Insulin Lispro [Humalog Kwikpen U-100] 100 unit SQ UD 12/18/22 [History Confirmed 06/18/23] PANTOPRAZOLE 40 mg Tablet [Protonix 40MG Tablet] 40 mg PO DAILY 12/18/22 [History Confirmed 06/18/23] Semaglutide [Ozempic] 2 mg SQ WEEKLY 12/18/22 [History Confirmed 06/18/23] carvediloL [Carvedilol] 25 mg PO BID 05/07/23 [History Confirmed 06/18/23] Allergies/Adverse Reactions: Allergies Allergy/AdvReac Type Severity Reaction Status Date / Time No Known Drug Allergies Allergy Verified 06/18/23 15:11 - Past Medical History Past Medical History: Yes Neurological History: Peripheral Neuropathy, Seizures, Stroke ENT History: No Pertinent History Cardiac History: Coronary Artery Disease, High Cholesterol, Hypertension, Peripheral Vascular Disease Respiratory History: COPD, Sleep Apnea, Other Endocrine Medical History: Diabetes Type II Musculoskelatal History: Fractures, Osteoarthritis GI Medical History: Esophageal Disorder, GERD, Pancreatitis History: No Pertinent History Pyscho-Social History: Anxiety, Depression, Panic Disorder Male Reproductive Disorders: Prostate Problems Comment: COVID IN 2019. FX LEFT FOREARM AND ANKLE A CHILD. LOWER EXTREMITY CELLULITIS - Past Surgical History Past Surgical History: Yes Neuro Surgical History: No Pertinent History Cardiac History: Cardiac Catheterization Respiratory Surgery: No Pertinent History GI Surgical History: No Pertinent History Genitourinary Surgical Hx: No Pertinent History Musculskeletal Surgical Hx: No Pertinent History Male Surgical History: No Pertinent History Other Surgical History: uvula removed. carpal tunnel right hand - Social History Smoking Status: Former smoker Exposure to second hand smoke: No Alcohol: None Drug Use: none Significant Family History: heart disease, diabetes, hypertension - Physical Exam Vital Signs: Vital Signs - 24 hr Temp Pulse Resp BP BP Pulse Ox 06/18/23 17:03 98 06/18/23 17:00 76 20 145/61 95 06/18/23 16:30 73 21 159/87 97 06/18/23 16:00 75 17 169/87 95 06/18/23 15:31 71 16 117/60 96 06/18/23 15:16 98 06/18/23 15:10 97.6 F 70 18 157/102 98 06/18/23 15:07 76 14 157/102 General Appearance: no apparent distress Neurologic Exam: alert, oriented x 3, cooperative Respiratory Exam: normal breath sounds, lungs clear Cardiovascular Exam: regular rate/rhythm, normal heart sounds Rectal Exam: deferred Extremity Exam: normal inspection Skin Exam: normal color Results - Labs Lab/Micro Results: Lab Results-Last 24 Hours 06/18/23 06/18/23 06/18/23 Range/Units 15:10 15:10 15:10 WBC 9.4 (4.0-10.5) x10^3/uL RBC 4.04 L (4.1-5.6) x10^6/uL Hgb 11.3 L (12.5-18.0) g/dL Hct 34.3 L (42-50) % MCV 84.9 (78-100) fL MCH 28.0 (26-32) pg MCHC 32.9 (32-36) g/dL RDW 13.1 (11.5-14.0) % Plt Count 324 (150-450) x10^3/uL MPV 9.1 (7.5-11.0) fL Gran % 79.4 H (36.0-66.0) % Immature Gran % (Auto) 0.3 (0.00-0.4) % Nucleat RBC Rel Count 0.0 (0.00-0.1) % Eos # (Auto) 0.10 (0-0.5) x10^3/uL Immature Gran # (Auto) 0.03 (0.00-0.03) x10^3u/L Absolute Lymphs (auto) 0.93 L (1.0-4.6) x10^3/uL Absolute Monos (auto) 0.85 (0.0-1.3) x10^3/uL Absolute Nucleated RBC 0.00 (0.00-0.01) x10^3u/L Lymphocytes % 9.9 L (24.0-44.0) % Monocytes % 9.0 (0.0-12.0) % Eosinophils % 1.1 (0.00-5.0) % Basophils % 0.3 (0.0-0.4) % Absolute Granulocytes 7.46 H (1.4-6.9) x10^3/uL Basophils # 0.03 (0-0.4) x10^3/uL Sodium 136 L (137-145) mmol/L Potassium 4.2 (3.5-5.1) mmol/L Chloride 100 (98-107) mmol/L Carbon Dioxide 25 (22-30) mmol/L Anion Gap 15.9 H (5-15) MEQ/L BUN 17 (9-20) mg/dL Creatinine 1.09 (0.66-1.25) mg/dL Estimated GFR > 60.0 ML/MIN Glucose 100 (74-106) mg/dL Calcium 9.3 (8.4-10.2) mg/dL Total Bilirubin 0.50 (0.2-1.3) mg/dL AST 31 (17-59) U/L ALT 43 (0-50) U/L Alkaline Phosphatase 91 (38-126) U/L Troponin I < 0.012 (0.000-0.034) ng/mL NT-Pro-B Natriuret Pep 831 (<300) pg/mL Serum Total Protein 7.3 (6.3-8.2) g/dL Albumin 4.1 (3.5-5.0) g/dL - Radiology Impressions Radiology Exams & Impressions: Radiology Procedures Category Date Time Status CHEST 1 VIEW (PORTABLE) Stat Exams 06/18/23 15:14 Completed Assessment/Plan (1) Chest pain, rule out acute myocardial infarction Current Visit: No Status: Acute Assessment & Plan: Admit OBs c tele -Reviewed Stress performed 01/20/20: IMPRESSION: 1) SINUS RHYTHM. 2) PVCS ESPECIALLY WITH TACHYARRHYMIA AND TRIGGERED EVENT. -Patient unsure if he has had any recent imaging -2 gm Na diet -consult cardiology -CXR reviewed as stated in HPI -start ASA 325mg qd and NTG sublingual PRN -serial troponin and ECG -Echo in am -CBC, CMP, DDimer, Mg, Phos, lipid panel, HgbA1c in am -continue appropriate baseline home medications -DVT prophylaxis-Lovenox 40 mg SQ daily Code(s): R07.9 - CHEST PAIN, UNSPECIFIED (2) Chronic renal failure Current Visit: Yes Status: Acute Assessment & Plan: -Chronic, no acute issues, at baseline, will continue to monitor renal/lytes daily -Avoid nephrotoxic agents/NSAIDs (3) HLD (hyperlipidemia) Current Visit: Yes Status: Acute Assessment & Plan: -continue home med atorvastatin Code(s): E78.5 - HYPERLIPIDEMIA, UNSPECIFIED (4) GERD (gastroesophageal reflux disease) Current Visit: Yes Status: Acute Assessment & Plan: -Continue home meds Code(s): K21.9 - GASTRO-ESOPHAGEAL REFLUX DISEASE WITHOUT ESOPHAGITIS (5) Essential hypertension Current Visit: No Status: Chronic Assessment & Plan: -Stable, will continue home meds, hydralazine prn Code(s): I10 - ESSENTIAL (PRIMARY) HYPERTENSION (6) CAD (coronary artery disease) Current Visit: Yes Status: Acute Assessment & Plan: -Continue home meds Code(s): I25.10 - ATHSCL HEART DISEASE OF [place] CORONARY ARTERY W/O ANG PCTRS (7) Diabetes mellitus Current Visit: Yes Status: Acute Assessment & Plan: -A1c 05/14/23 at 6.1 -Accucheck -Low dose SSI Code(s): E11.9 - TYPE 2 DIABETES MELLITUS WITHOUT COMPLICATIONS
[2023-06-18] MEDS ORDERED: Nitrostat 0.4 MG Tablet SL PRN (18:24)
[2023-06-18 18:26] LABS: MAGNESIUM 1.8 mg/dL (1.6-2.3); PHOSPHOROUS 3.4 mg/dL (2.5-4.5)
[2023-06-18] MEDS ORDERED: HUMALOG SQ PRN (18:32)
[2023-06-18] MEDS ORDERED: MORPHINE SULFATE 2 MG INJ IV PRN (18:35)
[2023-06-18] MEDS ORDERED: COREG 12.5 MG ONE ×2 (21:43→21:51)
[2023-06-18] MEDS: BUSPAR 5 MG PO SCH (21:47)
[2023-06-18] MEDS: NEURONTIN PO SCH (21:53)
[2023-06-18] MEDS ORDERED: NON-FORMULARY ITEM (Carvedilol [Carvedilol] 25 MG Tablet) PO SCH (22:00)
[2023-06-19 04:51] LABS: Absolute Neutrophil Ct (ANC) 5.54 x10^3/uL (1.4-6.9); BASOPHIL % 0.4 % (0.0-0.4); Basophil (Absolute #) 0.03 x10^3/uL (0-0.4); Eosinophil % 1.4 % (0.00-5.0); Hematocrit 33.5 % (42-50); Hemoglobin 11.2 g/dL (12.5-18.0); IMMATURE GRAN # 0.02 x10^3u/L (0.00-0.03); IMMATURE GRAN % 0.3 % (0.00-0.4); Lymphocyte (Absolute #) 0.72 x10^3/uL (1.0-4.6); Lymphocytes % 10.2 % (24.0-44.0); Mean Cell Volume 84.6 fL (78-100); Mean Corpuscular Hemoglobin 28.3 pg (26-32); Mean Corpuscular Hgb Concent. 33.4 g/dL (32-36); Mean Platelet Volume 8.9 fL (7.5-11.0); Monocyte (Absolute #) 0.68 x10^3/uL (0.0-1.3); Monocytes % 9.6 % (0.0-12.0); Neutrophil % 78.1 % (36.0-66.0); Platelet Count 274 x10^3/uL (150-450); Red Blood Count 3.96 x10^6/uL (4.1-5.6); Red Cell Distribution Width 13.1 % (11.5-14.0); White Blood Count 7.1 x10^3/uL (4.0-10.5)
[2023-06-19 05:15] LABS: ALBUMIN 3.8 g/dL (3.5-5.0); ALKALINE PHOSPHATASE 112 U/L (38-126); ANION GAP 11.3 MEQ/L (5-15); BLOOD UREA NITROGEN 15 mg/dL (9-20); CHLORIDE 100 mmol/L (98-107); Calcium 8.6 mg/dL (8.4-10.2); Carbon Dioxide 28 mmol/L (22-30); Cholesterol 90 mg/dL (50-200); Creatinine 1 0.85 mg/dL (0.66-1.25); EST GLOMERULAR FILTRATION RATE > 60.0 ML/MIN; Glucose 124 mg/dL (74-106); HDL CHOLESTEROL 17 mg/dL (40-60); LDL, DIRECT 55 mg/dL (30-100); MAGNESIUM 1.7 mg/dL (1.6-2.3); Potassium 3.7 mmol/L (3.5-5.1); Risk Ratio 5.4; SGOT/AST 100 U/L (17-59); SGPT/ALT 72 U/L (0-50); SODIUM 136 mmol/L (137-145); TRIGLYCERIDE 139 mg/dL (30-150); Total Protein 6.8 g/dL (6.3-8.2)
[2023-06-19] MEDS: NEURONTIN PO SCH ×2 (08:22→21:36)
[2023-06-19] MEDS: ENOXAPARIN SODIUM SQ SCH (08:22)
[2023-06-19] MEDS: Ecotrin 325 MG PO SCH (08:23)
[2023-06-19] MEDS: ZOCOR 20MG PO SCH (08:23)
--- NOTE | 2023-06-19 08:23 | PCM.NOTE ---
Date and Time: 06/19/23804 Subjective Assessment: is a 58 year old male with a pmhx of COPD,GERD, HTN, HLD, PAD, CKD, pancreatitis, and DM who presented to the ED 06/18/23 admitted for observation of atypical substernal pain that is worse sitting up and is pleuritic. EKG and troponin negative. DDimer only slightly elevated, no CTA needed. Patient endorsing mid epigastric pain this morning, improved from yesterday, notices it mostly after consuming a meal. He rates the pain 0/10 on a numerical pain scale, describes it as dull/squeezing. Labs discussed with patient, mostly unremarkable with the exception of elevation in LFT, plan for US abdomen today to evaluate for cholecystitis. Cardiac-barrett, plan for follow up with Dr. Paiz this Saturday for further cardiac workup. Echo pending. - Review of Systems Constitutional: No Symptoms Eyes: No Symptoms Ears, Nose, & Throat: No Symptoms Respiratory: No Symptoms Cardiac: No Symptoms Abdominal/Gastrointestinal: Abdominal Pain, Other (mid epigastric squeezing/ dull) Genitourinary Symptoms: No Symptoms Musculoskeletal: No Symptoms Skin: No Symptoms Neurological: No Symptoms Psychological: No Symptoms Objective Exam General Appearance: no apparent distress Neurologic Exam: alert, oriented x 3, cooperative Skin Exam: normal color Eye Exam: PERRL Respiratory Exam: normal breath sounds, lungs clear Cardiovascular Exam: regular rate/rhythm, normal heart sounds Gastrointestinal/Abdomen Exam: soft, normal bowel sounds Extremity Exam: normal inspection Back Exam: normal inspection OBJECTIVE DATA Vital Signs: Vital Signs - 24 hr Temp Pulse Resp BP BP Pulse Ox 06/19/23 07:20 98.1 F 104 H 16 115/55 96 06/19/23 03:52 97.1 F 87 20 139/63 97 06/18/23 23:56 97.0 F 80 18 145/69 95 06/18/23 19:18 97.7 F 87 20 111/54 97 06/18/23 17:25 97.8 F 84 16 157/69 94 L 06/18/23 17:03 98 06/18/23 17:00 76 20 145/61 95 06/18/23 16:30 73 21 159/87 97 06/18/23 16:00 75 17 169/87 95 06/18/23 15:31 71 16 117/60 96 06/18/23 15:16 98 06/18/23 15:10 97.6 F 70 18 157/102 98 06/18/23 15:07 76 14 157/102 Pain Assessment - Last Documented Pain Intensity 3 Intake and Output: Intake & Output 06/16/23 06/17/23 06/18/23 06/19/23 11:59 11:59 11:59 11:59 Intake Total 1500 Output Total 300 Balance 1200 Weight 115.2 kg Lab Results: Lab Results-Last 24 Hours 06/18/23 06/18/23 06/18/23 Range/Units 00:15 15:10 15:10 WBC 9.4 (4.0-10.5) x10^3/uL RBC 4.04 L (4.1-5.6) x10^6/uL Hgb 11.3 L (12.5-18.0) g/dL Hct 34.3 L (42-50) % MCV 84.9 (78-100) fL MCH 28.0 (26-32) pg MCHC 32.9 (32-36) g/dL RDW 13.1 (11.5-14.0) % Plt Count 324 (150-450) x10^3/uL MPV 9.1 (7.5-11.0) fL Gran % 79.4 H (36.0-66.0) % Immature Gran % (Auto) 0.3 (0.00-0.4) % Nucleat RBC Rel Count 0.0 (0.00-0.1) % Eos # (Auto) 0.10 (0-0.5) x10^3/uL Immature Gran # (Auto) 0.03 (0.00-0.03) x10^3u/L Absolute Lymphs (auto) 0.93 L (1.0-4.6) x10^3/uL Absolute Monos (auto) 0.85 (0.0-1.3) x10^3/uL Absolute Nucleated RBC 0.00 (0.00-0.01) x10^3u/L Lymphocytes % 9.9 L (24.0-44.0) % Monocytes % 9.0 (0.0-12.0) % Eosinophils % 1.1 (0.00-5.0) % Basophils % 0.3 (0.0-0.4) % Absolute Granulocytes 7.46 H (1.4-6.9) x10^3/uL Basophils # 0.03 (0-0.4) x10^3/uL D-Dimer (0.0-0.50) mg/L Sodium 136 L (137-145) mmol/L Potassium 4.2 (3.5-5.1) mmol/L Chloride 100 (98-107) mmol/L Carbon Dioxide 25 (22-30) mmol/L Anion Gap 15.9 H (5-15) MEQ/L BUN 17 (9-20) mg/dL Creatinine 1.09 (0.66-1.25) mg/dL Estimated GFR > 60.0 ML/MIN Glucose 100 (74-106) mg/dL Hemoglobin A1c (4.5-6.0) % Calcium 9.3 (8.4-10.2) mg/dL Phosphorus (2.5-4.5) mg/dL Magnesium (1.6-2.3) mg/dL Total Bilirubin 0.50 (0.2-1.3) mg/dL AST 31 (17-59) U/L ALT 43 (0-50) U/L Alkaline Phosphatase 91 (38-126) U/L Troponin I < 0.012 (0.000-0.034) ng/mL NT-Pro-B Natriuret Pep (<300) pg/mL Serum Total Protein 7.3 (6.3-8.2) g/dL Albumin 4.1 (3.5-5.0) g/dL Triglycerides (30-150) mg/dL Cholesterol (50-200) mg/dL LDL Cholesterol (30-100) mg/dL HDL Cholesterol (40-60) mg/dL Heart Disease Risk Ratio TSH 3rd Generation (0.47-4.68) mIU/L 06/18/23 06/18/23 06/18/23 Range/Units 15:10 15:10 15:10 WBC (4.0-10.5) x10^3/uL RBC (4.1-5.6) x10^6/uL Hgb (12.5-18.0) g/dL Hct (42-50) % MCV (78-100) fL MCH (26-32) pg MCHC (32-36) g/dL RDW (11.5-14.0) % Plt Count (150-450) x10^3/uL MPV (7.5-11.0) fL Gran % (36.0-66.0) % Immature Gran % (Auto) (0.00-0.4) % Nucleat RBC Rel Count (0.00-0.1) % Eos # (Auto) (0-0.5) x10^3/uL Immature Gran # (Auto) (0.00-0.03) x10^3u/L Absolute Lymphs (auto) (1.0-4.6) x10^3/uL Absolute Monos (auto) (0.0-1.3) x10^3/uL Absolute Nucleated RBC (0.00-0.01) x10^3u/L Lymphocytes % (24.0-44.0) % Monocytes % (0.0-12.0) % Eosinophils % (0.00-5.0) % Basophils % (0.0-0.4) % Absolute Granulocytes (1.4-6.9) x10^3/uL Basophils # (0-0.4) x10^3/uL D-Dimer 0.95 H* (0.0-0.50) mg/L Sodium (137-145) mmol/L Potassium (3.5-5.1) mmol/L Chloride (98-107) mmol/L Carbon Dioxide (22-30) mmol/L Anion Gap (5-15) MEQ/L BUN (9-20) mg/dL Creatinine (0.66-1.25) mg/dL Estimated GFR ML/MIN Glucose (74-106) mg/dL Hemoglobin A1c (4.5-6.0) % Calcium (8.4-10.2) mg/dL Phosphorus (2.5-4.5) mg/dL Magnesium (1.6-2.3) mg/dL Total Bilirubin (0.2-1.3) mg/dL AST (17-59) U/L ALT (0-50) U/L Alkaline Phosphatase (38-126) U/L Troponin I < 0.012 (0.000-0.034) ng/mL NT-Pro-B Natriuret Pep 831 (<300) pg/mL Serum Total Protein (6.3-8.2) g/dL Albumin (3.5-5.0) g/dL Triglycerides (30-150) mg/dL Cholesterol (50-200) mg/dL LDL Cholesterol (30-100) mg/dL HDL Cholesterol (40-60) mg/dL Heart Disease Risk Ratio TSH 3rd Generation 1.020 (0.47-4.68) mIU/L 06/18/23 06/18/23 06/18/23 Range/Units 15:10 15:10 19:12 WBC (4.0-10.5) x10^3/uL RBC (4.1-5.6) x10^6/uL Hgb (12.5-18.0) g/dL Hct (42-50) % MCV (78-100) fL MCH (26-32) pg MCHC (32-36) g/dL RDW (11.5-14.0) % Plt Count (150-450) x10^3/uL MPV (7.5-11.0) fL Gran % (36.0-66.0) % Immature Gran % (Auto) (0.00-0.4) % Nucleat RBC Rel Count (0.00-0.1) % Eos # (Auto) (0-0.5) x10^3/uL Immature Gran # (Auto) (0.00-0.03) x10^3u/L Absolute Lymphs (auto) (1.0-4.6) x10^3/uL Absolute Monos (auto) (0.0-1.3) x10^3/uL Absolute Nucleated RBC (0.00-0.01) x10^3u/L Lymphocytes % (24.0-44.0) % Monocytes % (0.0-12.0) % Eosinophils % (0.00-5.0) % Basophils % (0.0-0.4) % Absolute Granulocytes (1.4-6.9) x10^3/uL Basophils # (0-0.4) x10^3/uL D-Dimer (0.0-0.50) mg/L Sodium (137-145) mmol/L Potassium (3.5-5.1) mmol/L Chloride (98-107) mmol/L Carbon Dioxide (22-30) mmol/L Anion Gap (5-15) MEQ/L BUN (9-20) mg/dL Creatinine (0.66-1.25) mg/dL Estimated GFR ML/MIN Glucose (74-106) mg/dL Hemoglobin A1c 6.46 H (4.5-6.0) % Calcium (8.4-10.2) mg/dL Phosphorus 3.4 (2.5-4.5) mg/dL Magnesium 1.8 (1.6-2.3) mg/dL Total Bilirubin (0.2-1.3) mg/dL AST (17-59) U/L ALT (0-50) U/L Alkaline Phosphatase (38-126) U/L Troponin I < 0.012 (0.000-0.034) ng/mL NT-Pro-B Natriuret Pep (<300) pg/mL Serum Total Protein (6.3-8.2) g/dL Albumin (3.5-5.0) g/dL Triglycerides (30-150) mg/dL Cholesterol (50-200) mg/dL LDL Cholesterol (30-100) mg/dL HDL Cholesterol (40-60) mg/dL Heart Disease Risk Ratio TSH 3rd Generation (0.47-4.68) mIU/L 06/19/23 06/19/23 Range/Units 04:30 04:30 WBC 7.1 (4.0-10.5) x10^3/uL RBC 3.96 L (4.1-5.6) x10^6/uL Hgb 11.2 L (12.5-18.0) g/dL Hct 33.5 L (42-50) % MCV 84.6 (78-100) fL MCH 28.3 (26-32) pg MCHC 33.4 (32-36) g/dL RDW 13.1 (11.5-14.0) % Plt Count 274 (150-450) x10^3/uL MPV 8.9 (7.5-11.0) fL Gran % 78.1 H (36.0-66.0) % Immature Gran % (Auto) 0.3 (0.00-0.4) % Nucleat RBC Rel Count 0.0 (0.00-0.1) % Eos # (Auto) 0.10 (0-0.5) x10^3/uL Immature Gran # (Auto) 0.02 (0.00-0.03) x10^3u/L Absolute Lymphs (auto) 0.72 L (1.0-4.6) x10^3/uL Absolute Monos (auto) 0.68 (0.0-1.3) x10^3/uL Absolute Nucleated RBC 0.00 (0.00-0.01) x10^3u/L Lymphocytes % 10.2 L (24.0-44.0) % Monocytes % 9.6 (0.0-12.0) % Eosinophils % 1.4 (0.00-5.0) % Basophils % 0.4 (0.0-0.4) % Absolute Granulocytes 5.54 (1.4-6.9) x10^3/uL Basophils # 0.03 (0-0.4) x10^3/uL D-Dimer (0.0-0.50) mg/L Sodium 136 L (137-145) mmol/L Potassium 3.7 (3.5-5.1) mmol/L Chloride 100 (98-107) mmol/L Carbon Dioxide 28 (22-30) mmol/L Anion Gap 11.3 (5-15) MEQ/L BUN 15 (9-20) mg/dL Creatinine 0.85 (0.66-1.25) mg/dL Estimated GFR > 60.0 ML/MIN Glucose 124 H (74-106) mg/dL Hemoglobin A1c (4.5-6.0) % Calcium 8.6 (8.4-10.2) mg/dL Phosphorus (2.5-4.5) mg/dL Magnesium 1.7 (1.6-2.3) mg/dL Total Bilirubin 0.50 (0.2-1.3) mg/dL AST 100 H (17-59) U/L ALT 72 H (0-50) U/L Alkaline Phosphatase 112 (38-126) U/L Troponin I (0.000-0.034) ng/mL NT-Pro-B Natriuret Pep (<300) pg/mL Serum Total Protein 6.8 (6.3-8.2) g/dL Albumin 3.8 (3.5-5.0) g/dL Triglycerides 139 (30-150) mg/dL Cholesterol 90 (50-200) mg/dL LDL Cholesterol 55 (30-100) mg/dL HDL Cholesterol 17 L (40-60) mg/dL Heart Disease Risk Ratio 5.4 TSH 3rd Generation (0.47-4.68) mIU/L Radiology Exams: Radiology Procedures Category Date Time Status CHEST 1 VIEW (PORTABLE) Stat Exams 06/18/23 15:14 Completed ECHO W/2D AND DOPPLER [US] Routine Exams 06/19/23 18:21 Ordered Assessment/Plan (1) Chest pain, rule out acute myocardial infarction Current Visit: No Status: Acute Assessment & Plan: Admit OBs c tele -Reviewed Stress performed 01/20/20: IMPRESSION: 1) SINUS RHYTHM. 2) PVCS ESPECIALLY WITH TACHYARRHYMIA AND TRIGGERED EVENT. -Patient unsure if he has had any recent imaging -2 gm Na diet -consult cardiology -CXR reviewed as stated in HPI -start ASA 325mg qd and NTG sublingual PRN -serial troponin and ECG -Echo in am -CBC, CMP, DDimer, Mg, Phos, lipid panel, HgbA1c in am -continue appropriate baseline home medications -DVT prophylaxis-Lovenox 40 mg SQ daily 06/19: -Echo pending -Cardiac workup unremarkable. Plan for follow up with Dr. Paiz Saturday for further evaluation Code(s): R07.9 - CHEST PAIN, UNSPECIFIED (2) Abdominal pain Current Visit: No Status: Acute Assessment & Plan: -US abdomen, concern for cholecystitis Code(s): R10.9 - UNSPECIFIED ABDOMINAL PAIN (3) Elevated liver enzymes Current Visit: Yes Status: Acute Assessment & Plan: -US abdomen Code(s): R74.8 - ABNORMAL LEVELS OF OTHER SERUM ENZYMES (4) Chronic renal failure Current Visit: Yes Status: Acute Assessment & Plan: -Chronic, no acute issues, at baseline, will continue to monitor renal/lytes daily -Avoid nephrotoxic agents/NSAIDs (5) HLD (hyperlipidemia) Current Visit: Yes Status: Acute Assessment & Plan: -continue home med atorvastatin Code(s): E78.5 - HYPERLIPIDEMIA, UNSPECIFIED (6) GERD (gastroesophageal reflux disease) Current Visit: Yes Status: Acute Assessment & Plan: -Continue home meds, will add protonix IV 40 bid as well as carafate Code(s): K21.9 - GASTRO-ESOPHAGEAL REFLUX DISEASE WITHOUT ESOPHAGITIS (7) Essential hypertension Current Visit: No Status: Chronic Assessment & Plan: -Stable, will continue home meds, hydralazine prn Code(s): I10 - ESSENTIAL (PRIMARY) HYPERTENSION (8) CAD (coronary artery disease) Current Visit: Yes Status: Acute Assessment & Plan: -Continue home meds Code(s): I25.10 - ATHSCL HEART DISEASE OF [place] CORONARY ARTERY W/O ANG PCTRS (9) Diabetes mellitus Current Visit: Yes Status: Acute Assessment & Plan: -A1c 05/14/23 at 6.1 -Accucheck -Low dose SSI Code(s): E11.9 - TYPE 2 DIABETES MELLITUS WITHOUT COMPLICATIONS
[2023-06-19] MEDS: COREG 12.5 MG PO SCH ×2 (08:24→21:35)
[2023-06-19] MEDS: BUSPAR 5 MG PO SCH ×2 (08:24→21:35)
[2023-06-19] MEDS: PROZAC 10 MG PO SCH (08:25)
[2023-06-19] MEDS ORDERED: Protonix 40MG Tablet PO SCH (10:00)
[2023-06-19] MEDS ORDERED: ROSUVASTATIN CALCIUM 40 MG PO SCH (10:00)
[2023-06-19] MEDS: Carafate 1 GM PO SCH ×3 (11:57→21:35)
--- NOTE | 2023-06-19 12:14 | XRAY ---
Indication: Epigastric pain. Two-dimensional right upper quadrant abdominal sonogram performed. Comparison: None Pancreas not well-seen due to overlying bowel gas. Visualized liver appears mildly fatty in echogenicity with 8 mm right lobe cyst. Gallbladder is moderately distended up to 8.6 cm and demonstrates intraluminal echogenicities probable combination sludge and micro-calculi. Also abnormal gallbladder wall thickening up to 1.4 cm but no pericholecystic fluid. Common bile duct measures 7.2 mm. No intrahepatic biliary distention. Right kidney measures 12.4 cm in length and sonographically unremarkable. Impression: 1. Nonvisualization pancreas. 2. Abnormal gallbladder appearing distended with sludge/micro-calculi and abnormal wall thickening. Rule out chronic cholecystitis. 3. Incidental fatty liver with tiny cyst.
[2023-06-19] MEDS: PROTONIX 40 MG IV IV SCH (21:39)
--- NOTE | 2023-06-20 05:57 | PCM.NOTE ---
Date and Time: 06/20/23 0553 Subjective Assessment: is a 58 year old male with a pmhx of COPD,GERD, HTN, HLD, PAD, CKD, pancreatitis, and DM who presented to the ED 06/18/23 admitted for observation of atypical substernal pain that is worse sitting up and is pleuritic. EKG and troponin negative. DDimer only slightly elevated, no CTA needed. Patient endorsing mid epigastric pain this morning, improved from yesterday, notices it mostly after consuming a meal. He rates the pain 0/10 on a numerical pain scale, describes it as dull/squeezing. Labs discussed with patient, mostly unremarkable with the exception of elevation in LFT, US abdomen and CT showing chronic cholecystitis. Surgery consulted, HIDA ordered for today. Cardiac-barrett, plan for follow up with Dr. Paiz this Saturday for further cardiac workup. Echo pending. Patient endorsing improvement of abdominal pain, no chest pain today. Discussed labs, LFT trending up, pending HIDA scan results and surgery recs. Denies fever,cough, sob, cp, ELIZABETH, dizziness, N/V/D. - Review of Systems Constitutional: No Symptoms Eyes: No Symptoms Ears, Nose, & Throat: No Symptoms Respiratory: No Symptoms Cardiac: No Symptoms Abdominal/Gastrointestinal: Abdominal Pain Genitourinary Symptoms: No Symptoms Musculoskeletal: No Symptoms Neurological: No Symptoms Psychological: No Symptoms Endocrine: No Symptoms Hematologic/Lymphatic: No Symptoms Objective Exam General Appearance: no apparent distress Neurologic Exam: alert, oriented x 3, cooperative Skin Exam: normal color Eye Exam: PERRL Ears, Nose, Throat Exam: normal ENT inspection Neck Exam: normal inspection Respiratory Exam: normal breath sounds Cardiovascular Exam: regular rate/rhythm, normal heart sounds Gastrointestinal/Abdomen Exam: soft, normal bowel sounds, tenderness Extremity Exam: normal inspection Back Exam: normal inspection Male Genitalia Exam: deferred Rectal Exam: deferred OBJECTIVE DATA Vital Signs: Vital Signs - 24 hr Temp Pulse Resp BP Pulse Ox 06/20/23 04:00 98.0 F 89 18 138/69 96 06/19/23 23:45 98.2 F 71 20 168/81 94 L 06/19/23 20:00 97.8 F 81 20 166/77 95 06/19/23 16:00 97.1 F 73 16 168/75 94 L 06/19/23 12:00 96.9 F 65 16 139/66 96 06/19/23 07:20 98.1 F 104 H 16 115/55 96 Pain Assessment - Last Documented Pain Intensity 0 Intake and Output: Intake & Output 06/17/23 06/18/23 06/19/23 06/20/23 11:59 11:59 11:59 11:59 Intake Total 1620 1900 Output Total 300 Balance 1320 1900 Weight 115.2 kg Radiology Exams: Radiology Procedures Category Date Time Status ABDOMINAL-LIMITED [US] Stat Exams 06/19/23 10:38 Completed CHEST 1 VIEW (PORTABLE) Stat Exams 06/18/23 15:14 Completed ECHO W/2D AND DOPPLER [US] Routine Exams 06/19/23 18:21 Taken HEPATOBILIARY W/CCK [NUCMED] Urgent Exams 06/19/23 14:14 Ordered HIDA-GALL BLADDER [NUCMED] Stat Exams 06/19/23 13:41 Ordered HIDA-GALL BLADDER [NUCMED] Stat Exams 06/19/23 13:41 Stop Req Multi-Disciplinary Progress Notes: Multi-Disciplinary Progress Notes 06/19/23 10:17 Case Management Note by Cathi Dubose PATIENT REPORTED HE HAS HHC BUT IS UNSREU WHO THRU. S/W [facility] AT DR. FRITZ' OFFICE- THEY REPORT HE HAS [facility]. [facility] WAS NOTIFIED PATIENT IS HERE OBS. THEY WILL NEED NOTIFIED AT TIME OF DC AT [phone]. THEY WILL NEED FAXED THE DC INSTRUCTIONS, DC MED LIST AND DC SUMMARY TO [phone] Initialized on 06/19/23 10:17 - END OF NOTE Assessment/Plan (1) Chest pain, rule out acute myocardial infarction Current Visit: No Status: Acute Assessment & Plan: Admit OBs c tele -Reviewed Stress performed 01/20/20: IMPRESSION: 1) SINUS RHYTHM. 2) PVCS ESPECIALLY WITH TACHYARRHYMIA AND TRIGGERED EVENT. -Patient unsure if he has had any recent imaging -2 gm Na diet -consult cardiology -CXR reviewed as stated in HPI -start ASA 325mg qd and NTG sublingual PRN -serial troponin and ECG -Echo in am -CBC, CMP, DDimer, Mg, Phos, lipid panel, HgbA1c in am -continue appropriate baseline home medications -DVT prophylaxis-Lovenox 40 mg SQ daily 06/19: -Echo pending -Cardiac workup unremarkable. Plan for follow up with Dr. Paiz Saturday for further evaluation 06/20: -resolved Code(s): R07.9 - CHEST PAIN, UNSPECIFIED (2) Abdominal pain Current Visit: No Status: Acute Assessment & Plan: -US abdomen/CT concern for cholecystitis -HIDA ordered -Surgery consulted Code(s): R10.9 - UNSPECIFIED ABDOMINAL PAIN (3) Elevated liver enzymes Current Visit: Yes Status: Acute Assessment & Plan: -see abdominal pain Code(s): R74.8 - ABNORMAL LEVELS OF OTHER SERUM ENZYMES (4) Chronic renal failure Current Visit: Yes Status: Acute Assessment & Plan: -Chronic, no acute issues, at baseline, will continue to monitor renal/lytes daily -Avoid nephrotoxic agents/NSAIDs (5) HLD (hyperlipidemia) Current Visit: Yes Status: Acute Assessment & Plan: -continue home med atorvastatin Code(s): E78.5 - HYPERLIPIDEMIA, UNSPECIFIED (6) GERD (gastroesophageal reflux disease) Current Visit: Yes Status: Acute Assessment & Plan: -Continue home meds, will add protonix IV 40 bid as well as carafate Code(s): K21.9 - GASTRO-ESOPHAGEAL REFLUX DISEASE WITHOUT ESOPHAGITIS (7) Essential hypertension Current Visit: No Status: Chronic Assessment & Plan: -Stable, will continue home meds, hydralazine prn Code(s): I10 - ESSENTIAL (PRIMARY) HYPERTENSION (8) CAD (coronary artery disease) Current Visit: Yes Status: Acute Assessment & Plan: -Continue home meds Code(s): I25.10 - ATHSCL HEART DISEASE OF [place] CORONARY ARTERY W/O ANG PCTRS (9) Diabetes mellitus Current Visit: Yes Status: Acute Assessment & Plan: -A1c 05/14/23 at 6.1 -Accucheck -Low dose SSI Code(s): E11.9 - TYPE 2 DIABETES MELLITUS WITHOUT COMPLICATIONS
[2023-06-20] MEDS: Carafate 1 GM PO SCH ×4 (07:53→22:07)
[2023-06-20 08:50] LABS: Absolute Neutrophil Ct (ANC) 5.31 x10^3/uL (1.4-6.9); BASOPHIL % 0.6 % (0.0-0.4); Basophil (Absolute #) 0.04 x10^3/uL (0-0.4); Eosinophil % 1.2 % (0.00-5.0); Eosinophil (Absolute #) 0.08 x10^3/uL (0-0.5); Hemoglobin 10.8 g/dL (12.5-18.0); IMMATURE GRAN # 0.03 x10^3u/L (0.00-0.03); IMMATURE GRAN % 0.4 % (0.00-0.4); Lymphocyte (Absolute #) 0.72 x10^3/uL (1.0-4.6); Lymphocytes % 10.6 % (24.0-44.0); Mean Cell Volume 85.7 fL (78-100); Mean Corpuscular Hemoglobin 28.1 pg (26-32); Mean Corpuscular Hgb Concent. 32.7 g/dL (32-36); Monocyte (Absolute #) 0.64 x10^3/uL (0.0-1.3); Monocytes % 9.4 % (0.0-12.0); Neutrophil % 77.8 % (36.0-66.0); Platelet Count 282 x10^3/uL (150-450); Red Blood Count 3.85 x10^6/uL (4.1-5.6); Red Cell Distribution Width 12.8 % (11.5-14.0); White Blood Count 6.8 x10^3/uL (4.0-10.5)
[2023-06-20] MEDS: BUSPAR 5 MG PO SCH ×2 (09:25→22:07)
[2023-06-20] MEDS: COREG 12.5 MG PO SCH ×2 (09:25→22:07)
[2023-06-20] MEDS: PROTONIX 40 MG IV IV SCH ×2 (09:25→22:08)
[2023-06-20] MEDS: ENOXAPARIN SODIUM SQ SCH (09:25)
[2023-06-20] MEDS: ZOCOR 20MG PO SCH (09:25)
[2023-06-20] MEDS: Ecotrin 325 MG PO SCH (09:25)
[2023-06-20] MEDS: PROZAC 10 MG PO SCH (09:25)
[2023-06-20 09:46] LABS: ALBUMIN 3.5 g/dL (3.5-5.0); ALKALINE PHOSPHATASE 124 U/L (38-126); ANION GAP 13.1 MEQ/L (5-15); BLOOD UREA NITROGEN 11 mg/dL (9-20); CHLORIDE 102 mmol/L (98-107); Calcium 8.1 mg/dL (8.4-10.2); Carbon Dioxide 26 mmol/L (22-30); Creatinine 1 0.73 mg/dL (0.66-1.25); EST GLOMERULAR FILTRATION RATE > 60.0 ML/MIN; Glucose 186 mg/dL (74-106); Potassium 3.7 mmol/L (3.5-5.1); SGOT/AST 174 U/L (17-59); SGPT/ALT 183 U/L (0-50); SODIUM 137 mmol/L (137-145); Total Protein 6.3 g/dL (6.3-8.2)
[2023-06-20] MEDS ORDERED: MORPHINE SULFATE 10 MG/ML IV ONE (12:24)
--- NOTE | 2023-06-20 13:28 | ECHO ---
Transthoracic echocardiographic examination and color Doppler was done on 06/19/2023. INDICATION: Chest pain, epigastric pain, history of hypertension. IMPRESSION: 1) NO REGIONAL WALL MOTION ABNORMALITY. ESTIMATED GLOBAL LEFT VENTRICULAR EJECTION FRACTION OF AROUND 60 TO 65%. 2) LEFT ATRIAL ENLARGEMENT. 3) LEFT VENTRICULAR HYPERTROPHY. The left ventricle is visualized and demonstrated adequate motion of all the segments. Estimated global left ventricular ejection fraction around 60 to 65%. There is mild left ventricular hypertrophy. The mitral valve is seen and this opens adequately. No significant mitral regurgitation is seen. Left atrium is mildly enlarged. The aortic valve is mildly thickened but opens adequately. The peak gradient across the aortic valve is 10 mm of [place]. Right side chambers are normal with normal right ventricular contractility.
[2023-06-20] MEDS: NEURONTIN PO SCH ×2 (13:34→22:07)
--- NOTE | 2023-06-20 14:17 | XRAY ---
Indication: Abdomen pain. Abnormal gallbladder on recent sonogram. Comparison: None Patient received 5.9 mCi technetium 99 Choletec. Immediate anterior planar imaging was performed for 60 minutes. Normal hepatic activity on the first image. Normal biliary and biliary to bowel activity within 10 minutes. No gallbladder activity after 60 minutes. Patient then received 5.2 mg IV morphine sulfate. After 60 minutes following morphine injection, no gallbladder activity demonstrated concerning for cholecystitis. Impression: No gallbladder activity with and without morphine augmentation concerning for cholecystitis.
[2023-06-21 05:14] LABS: Absolute Neutrophil Ct (ANC) 5.63 x10^3/uL (1.4-6.9); BASOPHIL % 0.4 % (0.0-0.4); Basophil (Absolute #) 0.03 x10^3/uL (0-0.4); Eosinophil % 1.6 % (0.00-5.0); Eosinophil (Absolute #) 0.12 x10^3/uL (0-0.5); Hematocrit 33.8 % (42-50); Hemoglobin 10.8 g/dL (12.5-18.0); IMMATURE GRAN # 0.03 x10^3u/L (0.00-0.03); IMMATURE GRAN % 0.4 % (0.00-0.4); Lymphocyte (Absolute #) 0.97 x10^3/uL (1.0-4.6); Lymphocytes % 12.9 % (24.0-44.0); Mean Cell Volume 86.2 fL (78-100); Mean Corpuscular Hemoglobin 27.6 pg (26-32); Mean Platelet Volume 8.9 fL (7.5-11.0); Monocyte (Absolute #) 0.74 x10^3/uL (0.0-1.3); Monocytes % 9.8 % (0.0-12.0); Neutrophil % 74.9 % (36.0-66.0); Platelet Count 278 x10^3/uL (150-450); Red Blood Count 3.92 x10^6/uL (4.1-5.6); White Blood Count 7.5 x10^3/uL (4.0-10.5)
[2023-06-21 05:51] LABS: ALBUMIN 3.5 g/dL (3.5-5.0); ALKALINE PHOSPHATASE 97 U/L (38-126); ANION GAP 13.5 MEQ/L (5-15); BLOOD UREA NITROGEN 9 mg/dL (9-20); CHLORIDE 102 mmol/L (98-107); Calcium 8.3 mg/dL (8.4-10.2); Carbon Dioxide 24 mmol/L (22-30); Creatinine 1 0.69 mg/dL (0.66-1.25); EST GLOMERULAR FILTRATION RATE > 60.0 ML/MIN; Glucose 93 mg/dL (74-106); Potassium 3.5 mmol/L (3.5-5.1); SGOT/AST 50 U/L (17-59); SGPT/ALT 122 U/L (0-50); SODIUM 137 mmol/L (137-145); Total Protein 6.5 g/dL (6.3-8.2)
--- NOTE | 2023-06-21 07:44 | CONS ---
CONSULT DATE: 06/20/2023 HISTORY: Ashu Mckeon presented with possible cardiac pain. He had substernal epigastric pain severe. He had myocardial infarction ruled out. He had cardiac etiology ruled out. He subsequently had an ultrasound revealing stones. He did have a HIDA scan. We saw him in the HIDA scan at about 12:30 and he had been in over an hour and there is still no visualization. Apparently there was never any visualization of the gallbladder consistent with acute cholecystitis. He would like to have this done while he is here. I have discussed this with Dr. Lara. He is scheduled for tomorrow evening here for laparoscopic cholecystectomy semi-acute, semi-urgent fashion.
[2023-06-21] MEDS: Carafate 1 GM PO SCH ×4 (08:02→21:45)
[2023-06-21] MEDS: Lactated Ringers 1,000 ML IV SCH (08:24)
[2023-06-21] MEDS ORDERED: MEFOXIN 2 GM PREMIX** 2 GM/50 ML ML IV SCH (09:00)
[2023-06-21] MEDS: COREG 12.5 MG PO SCH ×2 (09:54→21:45)
[2023-06-21] MEDS: BUSPAR 5 MG PO SCH ×2 (09:54→21:45)
[2023-06-21] MEDS: ZOCOR 20MG PO SCH (09:54)
[2023-06-21] MEDS: NEURONTIN PO SCH ×2 (09:54→21:45)
[2023-06-21] MEDS: PROZAC 10 MG PO SCH (09:54)
[2023-06-21] MEDS: PROTONIX 40 MG IV IV SCH ×2 (09:54→21:43)
[2023-06-21] MEDS: Ecotrin 325 MG PO SCH (10:05)
[2023-06-21] MEDS: ENOXAPARIN SODIUM SQ SCH (10:05)
--- NOTE | 2023-06-21 11:45 | PCM.NOTE ---
Date and Time: 06/21/23 1140 Subjective Assessment: is a 58 year old male with a pmhx of COPD,GERD, HTN, HLD, PAD, CKD, pancreatitis, and DM. He presented to the ED on 06/18/23 and was admitted for observation of atypical substernal pain that is worse sitting up and is pleuritic. EKG and troponin negative. DDimer only slightly elevated, no CTA nee ded. Patient endorsed mid epigastric pain, that has improved from previous days, notices it mostly after consuming a meal. He rates the pain 0/10 on a numerical pain scale, describes it as dull/squeezing. Labs discussed with patient, mostly unremarkable with the exception of elevation in LFT, US abdomen and CT showing chronic cholecystitis. HIDA scan confirmed the need for gallbladder removal. Maris bradshaw consulted, and the plan is for gallbladder removal today. Cardiac-barrett, plan for follow up with Dr. Paiz this Saturday for further cardiac workup. Echo reviewed. Patient endorsing improvement of abdominal pain, no chest pain today. Discussed labs, LFT improved from yesterday, HIDA scan results, and surgery plan. Denies fever,cough, SOB, CP, ELIZABETH, dizziness, N/V/D. - Review of Systems Constitutional: No Fever, No Chills Eyes: No Symptoms Ears, Nose, & Throat: No Symptoms Respiratory: No Cough, No Short Of Breath Cardiac: No Chest Pain, No Edema, No Syncope Abdominal/Gastrointestinal: No Abdominal Pain, No Nausea, No Vomiting, No Diarrhea Genitourinary Symptoms: No Dysuria Musculoskeletal: No Back Pain, No Neck Pain Skin: No Rash Neurological: No Dizziness, No Focal Weakness, No Sensory Changes Psychological: No Symptoms Endocrine: No Symptoms Hematologic/Lymphatic: No Symptoms Immunological/Allergic: No Symptoms Objective Exam General Appearance: no apparent distress, alert, obese Neurologic Exam: alert, oriented x 3, cooperative, normal mood/affect, nml cerebellar function, sensation nml, No motor deficits Skin Exam: normal color, warm, dry Eye Exam: PERRL, EOMI, eyes nml inspection Ears, Nose, Throat Exam: normal ENT inspection, pharynx normal, moist mucous membranes Neck Exam: normal inspection, non-tender, supple, full range of motion Respiratory Exam: normal breath sounds, lungs clear, No respiratory distress Cardiovascular Exam: regular rate/rhythm, normal heart sounds Gastrointestinal/Abdomen Exam: soft, No tenderness, No mass Extremity Exam: normal inspection, normal range of motion Back Exam: normal inspection, normal range of motion, No CVA tenderness, No vertebral tenderness Male Genitalia Exam: deferred Rectal Exam: deferred OBJECTIVE DATA Vital Signs: Vital Signs - 24 hr Temp Pulse Resp BP Pulse Ox 06/21/23 08:00 97.6 F 70 18 166/74 95 06/21/23 04:00 97.3 F 74 18 131/61 97 06/20/23 23:36 97.8 F 86 21 173/75 98 06/20/23 18:56 99.2 F 74 16 181/77 98 06/20/23 16:00 97.3 F 65 16 157/70 95 Pain Assessment - Last Documented Pain Intensity 0 Pain Scale Used 0-10 Pain Scale Intake and Output: Intake & Output 06/18/23 06/19/23 06/20/23 06/21/23 11:59 11:59 11:59 11:59 Intake Total 1620 1900 1060 Output Total 300 Balance 1320 1900 1060 Weight 115.2 kg Lab Results: Lab Results-Last 24 Hours 06/21/23 06/21/23 Range/Units 04:58 04:58 WBC 7.5 (4.0-10.5) x10^3/uL RBC 3.92 L (4.1-5.6) x10^6/uL Hgb 10.8 L (12.5-18.0) g/dL Hct 33.8 L (42-50) % MCV 86.2 (78-100) fL MCH 27.6 (26-32) pg MCHC 32.0 (32-36) g/dL RDW 13.0 (11.5-14.0) % Plt Count 278 (150-450) x10^3/uL MPV 8.9 (7.5-11.0) fL Gran % 74.9 H (36.0-66.0) % Immature Gran % (Auto) 0.4 (0.00-0.4) % Nucleat RBC Rel Count 0.0 (0.00-0.1) % Eos # (Auto) 0.12 (0-0.5) x10^3/uL Immature Gran # (Auto) 0.03 (0.00-0.03) x10^3u/L Absolute Lymphs (auto) 0.97 L (1.0-4.6) x10^3/uL Absolute Monos (auto) 0.74 (0.0-1.3) x10^3/uL Absolute Nucleated RBC 0.00 (0.00-0.01) x10^3u/L Lymphocytes % 12.9 L (24.0-44.0) % Monocytes % 9.8 (0.0-12.0) % Eosinophils % 1.6 (0.00-5.0) % Basophils % 0.4 (0.0-0.4) % Absolute Granulocytes 5.63 (1.4-6.9) x10^3/uL Basophils # 0.03 (0-0.4) x10^3/uL Sodium 137 (137-145) mmol/L Potassium 3.5 (3.5-5.1) mmol/L Chloride 102 (98-107) mmol/L Carbon Dioxide 24 (22-30) mmol/L Anion Gap 13.5 (5-15) MEQ/L BUN 9 (9-20) mg/dL Creatinine 0.69 (0.66-1.25) mg/dL Estimated GFR > 60.0 ML/MIN Glucose 93 (74-106) mg/dL Calcium 8.3 L (8.4-10.2) mg/dL Total Bilirubin 0.60 (0.2-1.3) mg/dL AST 50 (17-59) U/L ALT 122 H (0-50) U/L Alkaline Phosphatase 97 (38-126) U/L Serum Total Protein 6.5 (6.3-8.2) g/dL Albumin 3.5 (3.5-5.0) g/dL Radiology Exams: Radiology Procedures Category Date Time Status ECHO W/2D AND DOPPLER [US] Routine Exams 06/19/23 18:21 Draft HIDA-GALL BLADDER [NUCMED] Urgent Exams 06/20/23 11:13 Completed Multi-Disciplinary Progress Notes: Multi-Disciplinary Progress Notes 06/21/23 10:06 Case Management Note by Cathi Dubose S/W PATIENT- HE CONTINUES TO DENY ANY NEW NEEDS AT TIME OF DC. HE REPORTS HE HAS FAMILY CLOSE THAT CAN ASSIST HIM AT HOME IF NEEDED. PATIENT HAS C WELL. HE PLANS TO DC HOME TO HIS PLF AT TIME OF DC Initialized on 06/21/23 10:06 - END OF NOTE Assessment/Plan (1) Chest pain Current Visit: Yes Status: Acute Assessment & Plan: -Reviewed Stress performed 01/20/20: IMPRESSION: 1) SINUS RHYTHM. 2) PVCS ESPECIALLY WITH TACHYARRHYMIA AND TRIGGERED EVENT. -Patient unsure if he has had any recent imaging -2 gm Na diet -consult cardiology -CXR reviewed as stated in HPI -start ASA 325mg qd and NTG sublingual PRN -serial troponin and ECG -Echo in am -CBC, CMP, DDimer, Mg, Phos, lipid panel, HgbA1c in am -continue appropriate baseline home medications -DVT prophylaxis-Lovenox 40 mg SQ daily 06/19: -Echo pending -Cardiac workup unremarkable. Plan for follow up with Dr. Paiz Saturday for further evaluation 06/20: -resolved 06/21 - Echo: Completed 06/19 IMPRESSION: 1) NO REGIONAL WALL MOTION ABNORMALITY. ESTIMATED GLOBAL LEFT VENTRICULAR EJECTION FRACTION OF AROUND 60 TO 65%. 2) LEFT ATRIAL ENLARGEMENT. 3) LEFT VENTRICULAR HYPERTROPHY. - Pain most likely r/t Gallbladder Code(s): R07.9 - CHEST PAIN, UNSPECIFIED (2) CAD (coronary artery disease) Current Visit: Yes Status: Acute Assessment & Plan: -Continue home meds Code(s): I25.10 - ATHSCL HEART DISEASE OF [place] CORONARY ARTERY W/O ANG PCTRS (3) Abdominal pain Current Visit: No Status: Acute Assessment & Plan: -US abdomen/CT concern for cholecystitis -HIDA 06/20 No gallbladder activity with and without morphine augmentation concerning for cholecystitis -Surgery consulted and plan is for surgery today 06/21 Code(s): R10.9 - UNSPECIFIED ABDOMINAL PAIN (4) Chronic renal failure Current Visit: Yes Status: Acute Assessment & Plan: -Chronic, no acute issues, at baseline, will continue to monitor renal/lytes daily -Avoid nephrotoxic agents/NSAIDs (5) Diabetes mellitus Current Visit: Yes Status: Acute Assessment & Plan: -Controlled -A1c 05/14/23 at 6.1 -Accucheck AC/HS -Low dose SSI Code(s): E11.9 - TYPE 2 DIABETES MELLITUS WITHOUT COMPLICATIONS (6) Elevated liver enzymes Current Visit: Yes Status: Acute Assessment & Plan: 06/21 - Improved today AST within normal range, ALT 22 Code(s): R74.8 - ABNORMAL LEVELS OF OTHER SERUM ENZYMES (7) GERD (gastroesophageal reflux disease) Current Visit: Yes Status: Acute Assessment & Plan: -Continue home meds, will add protonix IV 40 bid as well as carafate Code(s): K21.9 - GASTRO-ESOPHAGEAL REFLUX DISEASE WITHOUT ESOPHAGITIS (8) HLD (hyperlipidemia) Current Visit: Yes Status: Acute Assessment & Plan: -continue home med atorvastatin - Lipid panel 06/19- HDL 17 - Advised to improve diet Code(s): E78.5 - HYPERLIPIDEMIA, UNSPECIFIED (9) Essential hypertension Current Visit: No Status: Chronic Assessment & Plan: -Stable, continue home meds, hydralazine prn DC plan: tomorrow Code status: Full VTE: Lovenox Code(s): I10 - ESSENTIAL (PRIMARY) HYPERTENSION
[2023-06-21] MEDS ORDERED: DIPRIVAN 200 MG/20 ML IV ONE (13:31)
[2023-06-21] MEDS ORDERED: Sensorcaine 0.25% 10 ML ONE ×2 (13:31→14:28)
[2023-06-21] MEDS ORDERED: Zemuron 100 MG/10 ML ONE ×3 (13:31→16:46)
[2023-06-21] MEDS ORDERED: Versed 2 MG/2 ML Injection ONE (13:31)
[2023-06-21] MEDS ORDERED: SUBLIMAZE 100 MCG/2 ML ONE (13:31)
[2023-06-21] MEDS ORDERED: Quelicin Fliptop 200 MG/10 ML ONE (13:51)
--- NOTE | 2023-06-21 14:03 | PCM.CONS ---
History of Present Illness - Reason for Consult Chief Complaint: Chest pain/ACS Requesting Provider: CARMEN SPRAGUE MD Consulting Provider: ALFREDO GASTON MD History of Present Illness: hx per chart review and d/w pt 58yo presents with epigastric/chest pain cardiac ruleout cardiac workup negative. then more consistent with cholecystitis then HIDA scan with nonfilling of the gallbladdr 06/20. overnight his pain has improve some its a constant dull ache but tolerable. no n/v. no abd surgeries before. "Time Seen by Provider: 06/18/23 15:25 Historian: patient Exam Limitations: no limitations Patient Subjective Stated Complaint: C/O Chest pain for the past 3-4 days that has become increasingly worse today Triage Nursing Assessment: Patient brought back to ER in a W/C. He is alert and oriented. No SOB or cough noted. Skin tone normal. MEZA WNL. No edema. Scattered scabs noted to BUE, BLE, and 2 bandaids on abdomen that he reports are small abrasions he is treating himself. Patient is diabetic with dexcom noted for blood sugar checks; patient indicates he checked it approx one hour ago and it was 110. Physician History: Patient is a 58-year-old male with a history of diabetes BMI of 35.2 presents to our ED with progressive chest pain. Patient reports the symptoms started about 3 to 4 days ago. Symptoms have been progressive. Pain described as an ache that is substernal. No radiation. No specific worsening or improving factors. Patient denies a history of the same. No associated nausea vomiting or diaphoresis. Symptoms are moderate in intensity. No trauma no fever. Patient voices no other complaints or concerns at this time. Portions of this note were created with voice recognition technology. There may be grammatical, spelling, punctuation or sound alike errors Timing/Duration: day(s) (3 to 4 days) Activities at Onset: none Quality: aching Location: substernal Chest Pain Radiation: no radiation Severity of Pain-Max: moderate Severity of Pain-Current: mild Modifying Factors: Improves With: nothing Associated Symptoms: denies symptoms Prior Chest Pain/Cardiac Workup: no prior chest pain Nitro Today/Relief: no nitro taken today Aspirin Treatment Today: no aspirin today Allergies/Adverse Reactions: " Medications & Allergies Home Medications: Home Medication List Metformin HCl 1000 mg [Glucophage 1000 MG] 1,000 mg PO BID 05/17/15 [History Confirmed 06/18/23] Nitroglycerin [Nitrostat] 0.4 mg SL Q5MIN PRN MR X 3 PRN 07/03/15 [History Confirmed 06/18/23] Gabapentin [Neurontin] 600 mg PO BID 07/24/20 [History Confirmed 06/18/23] Rosuvastatin Calcium [Crestor] 40 mg PO DAILY 07/24/20 [History Confirmed 06/18/23] Buspirone HCl 5 mg [Buspar 5 mg] 5 mg PO BID 06/04/21 [History Confirmed 06/18/23] Fluoxetine HCl [Prozac] 10 mg PO DAILY 12/18/22 [History Confirmed 06/18/23] Insulin Lispro [Humalog Kwikpen U-100] 0 unit SQ UD 12/18/22 [History Confirmed 06/18/23] PANTOPRAZOLE 40 mg Tablet [Protonix 40MG Tablet] 40 mg PO DAILY 12/18/22 [History Confirmed 06/18/23] Semaglutide [Ozempic] 2 mg SQ WEEKLY 12/18/22 [History Confirmed 06/18/23] carvediloL [Carvedilol] 25 mg PO BID 05/07/23 [History Confirmed 06/18/23] Allergies/Adverse Reactions: Allergies Allergy/AdvReac Type Severity Reaction Status Date / Time No Known Drug Allergies Allergy Verified 06/18/23 15:11 - Past Medical History Past Medical History: Yes Neurological History: Peripheral Neuropathy, Seizures, Stroke ENT History: No Pertinent History Cardiac History: Coronary Artery Disease, High Cholesterol, Hypertension, Peripheral Vascular Disease Respiratory History: COPD, Sleep Apnea, Other Endocrine Medical History: Diabetes Type II Musculoskelatal History: Fractures, Osteoarthritis GI Medical History: Esophageal Disorder, GERD, Pancreatitis History: No Pertinent History Pyscho-Social History: Anxiety, Depression, Panic Disorder Male Reproductive Disorders: Prostate Problems Comment: COVID IN 2019. FX LEFT FOREARM AND ANKLE A CHILD. LOWER EXTREMITY CELLULITIS - Past Surgical History Past Surgical History: Yes Neuro Surgical History: No Pertinent History Cardiac History: Cardiac Catheterization Respiratory Surgery: No Pertinent History GI Surgical History: No Pertinent History Genitourinary Surgical Hx: No Pertinent History Musculskeletal Surgical Hx: No Pertinent History Male Surgical History: No Pertinent History Other Surgical History: uvula removed. carpal tunnel right hand - Social History Smoking Status: Former smoker Exposure to second hand smoke: No Alcohol: None Drug Use: none Significant Family History: heart disease, diabetes, hypertension - Physical Exam Vital Signs: Vital Signs - 24 hr Temp Pulse Resp BP Pulse Ox 06/21/23 13:48 97.6 F 65 18 132/64 93 L 06/21/23 11:48 97.6 F 65 18 132/64 93 L 06/21/23 08:00 97.6 F 70 18 166/74 95 06/21/23 04:00 97.3 F 74 18 131/61 97 06/20/23 23:36 97.8 F 86 21 173/75 98 06/20/23 18:56 99.2 F 74 16 181/77 98 06/20/23 16:00 97.3 F 65 16 157/70 95 General Appearance: no apparent distress, obese Neurologic Exam: alert, oriented x 3 Eye Exam: eyes nml inspection, No scleral icterus Neck Exam: normal inspection Respiratory Exam: No respiratory distress Cardiovascular Exam: regular rate/rhythm Gastrointestinal/Abdomen Exam: soft, tenderness Rectal Exam: deferred Extremity Exam: normal inspection, pedal edema Skin Exam: warm, dry Results - Labs Lab/Micro Results: Lab Results-Last 24 Hours 06/21/23 06/21/23 Range/Units 04:58 04:58 WBC 7.5 (4.0-10.5) x10^3/uL RBC 3.92 L (4.1-5.6) x10^6/uL Hgb 10.8 L (12.5-18.0) g/dL Hct 33.8 L (42-50) % MCV 86.2 (78-100) fL MCH 27.6 (26-32) pg MCHC 32.0 (32-36) g/dL RDW 13.0 (11.5-14.0) % Plt Count 278 (150-450) x10^3/uL MPV 8.9 (7.5-11.0) fL Gran % 74.9 H (36.0-66.0) % Immature Gran % (Auto) 0.4 (0.00-0.4) % Nucleat RBC Rel Count 0.0 (0.00-0.1) % Eos # (Auto) 0.12 (0-0.5) x10^3/uL Immature Gran # (Auto) 0.03 (0.00-0.03) x10^3u/L Absolute Lymphs (auto) 0.97 L (1.0-4.6) x10^3/uL Absolute Monos (auto) 0.74 (0.0-1.3) x10^3/uL Absolute Nucleated RBC 0.00 (0.00-0.01) x10^3u/L Lymphocytes % 12.9 L (24.0-44.0) % Monocytes % 9.8 (0.0-12.0) % Eosinophils % 1.6 (0.00-5.0) % Basophils % 0.4 (0.0-0.4) % Absolute Granulocytes 5.63 (1.4-6.9) x10^3/uL Basophils # 0.03 (0-0.4) x10^3/uL Sodium 137 (137-145) mmol/L Potassium 3.5 (3.5-5.1) mmol/L Chloride 102 (98-107) mmol/L Carbon Dioxide 24 (22-30) mmol/L Anion Gap 13.5 (5-15) MEQ/L BUN 9 (9-20) mg/dL Creatinine 0.69 (0.66-1.25) mg/dL Estimated GFR > 60.0 ML/MIN Glucose 93 (74-106) mg/dL Calcium 8.3 L (8.4-10.2) mg/dL Total Bilirubin 0.60 (0.2-1.3) mg/dL AST 50 (17-59) U/L ALT 122 H (0-50) U/L Alkaline Phosphatase 97 (38-126) U/L Serum Total Protein 6.5 (6.3-8.2) g/dL Albumin 3.5 (3.5-5.0) g/dL Accuchecks Date 06/21/23 Date 06/21/23 Date 06/20/23 Date 06/20/23 Time 11:47 Time 08:16 Time 23:14 - Radiology Impressions Radiology Exams & Impressions: Radiology Procedures Category Date Time Status ECHO W/2D AND DOPPLER [US] Routine Exams 06/19/23 18:21 Draft HIDA-GALL BLADDER [NUCMED] Urgent Exams 06/20/23 11:13 Completed Assessment/Plan (1) Cholecystitis Current Visit: Yes Status: Acute Assessment & Plan: 58yo with persistent epigastric ruq abd pain. tenderness on examintion negative cooper but with nonfilling on HIDA scan consistent with acue cholecystitis. -to or lap fabby possible open. Code(s): K81.9 - CHOLECYSTITIS, UNSPECIFIED
[2023-06-21] MEDS ORDERED: Zofran 4 MG/2 ML VIAL ONE (14:15)
[2023-06-21] MEDS ORDERED: BRIDION 200MG/2ML IV ONE (14:15)
[2023-06-21] MEDS ORDERED: Ephedrine Sulfate 50 MG/ML ONE (14:27)
[2023-06-21] MEDS ORDERED: PHENYLEPHRINE HCL ONE (14:28)
[2023-06-21] MEDS ORDERED: PIPERACILLIN/TAZOBACTAM 3.375 GM in Sodium Chloride 100ML MINI-BAG PLUS 100 ML IV ONE (15:30)
[2023-06-21] MEDS ORDERED: Sodium Chloride 0.9% 1000 ML 2,000 ML ONE (16:17)
[2023-06-21 16:31] LABS: A-aADO2 7; ABG HEMOGLOBIN 10.6; ABG POTASSIUM 3.8 (3.5-5.1); ARTERIAL BLD GAS O2 SATURATION 98.5 % (95-100); ARTERIAL BLOOD GAS BASE EXCESS -0.3 (-2.0-2.0); ARTERIAL BLOOD GAS FIO2 21 %; ARTERIAL BLOOD GAS PCO2 37 mmHg (35-45); ARTERIAL BLOOD GAS PO2 96 mmHg (75-100); ARTERIAL BLOOD GAS pH 7.42 (7.35-7.45); CARBOXYHEMOGLOBIN 0.8 % THgb (0.0-6.9); HGB O2 SAT 97.4 g/dF (94-100); Methhemoglobin 0.3 % (1.4-1.5); paO2 pAO1 0.93
[2023-06-21] MEDS ORDERED: PITRESSIN 20 UNITS IJ ONE (17:14)
[2023-06-21] MEDS ORDERED: Sodium Chloride 0.9% 100 ML ONE (17:18)
[2023-06-21] MEDS ORDERED: Marcaine 0.5%/Epinephrine 10 ML ONE (17:57)
[2023-06-21] MEDS ORDERED: Naropin 0.5% 30 ML VIAL ONE (17:57)
[2023-06-21 18:08] LABS: A-aADO2 -34; ABG POTASSIUM 3.7 (3.5-5.1); ARTERIAL BLD GAS O2 SATURATION 99.4 % (95-100); ARTERIAL BLOOD GAS BASE EXCESS -1.6 (-2.0-2.0); ARTERIAL BLOOD GAS FIO2 21 %; ARTERIAL BLOOD GAS PCO2 37 mmHg (35-45); ARTERIAL BLOOD GAS PO2 137 mmHg (75-100); CARBOXYHEMOGLOBIN 1.2 % THgb (0.0-6.9); Glucose,Critical Care 130 (70-110); HCO3- 22.9 (22-28); HGB O2 SAT 97.6 g/dF (94-100); Methhemoglobin 0.6 % (1.4-1.5); paO2 pAO1 1.33
[2023-06-21 18:09] LABS: ABG SITE line
[2023-06-21] MEDS ORDERED: DILAUDID 2 MG INJECTION ONE (18:32)
[2023-06-21] MEDS ORDERED: Lactated Ringers 1,000 ML IV ONE (18:42)
[2023-06-21 19:23] LABS: Hematocrit 33.8 % (42-50); Hemoglobin 10.7 g/dL (12.5-18.0); Mean Cell Volume 88.3 fL (78-100); Mean Corpuscular Hemoglobin 27.9 pg (26-32); Mean Corpuscular Hgb Concent. 31.7 g/dL (32-36); Mean Platelet Volume 8.8 fL (7.5-11.0); Platelet Count 284 x10^3/uL (150-450); Red Blood Count 3.83 x10^6/uL (4.1-5.6); Red Cell Distribution Width 13.1 % (11.5-14.0); White Blood Count 9.9 x10^3/uL (4.0-10.5)
[2023-06-21 19:37] LABS: ALBUMIN 3.1 g/dL (3.5-5.0); ALKALINE PHOSPHATASE 83 U/L (38-126); ANION GAP 14.1 MEQ/L (5-15); BLOOD UREA NITROGEN 12 mg/dL (9-20); CHLORIDE 108 mmol/L (98-107); Calcium 7.4 mg/dL (8.4-10.2); Carbon Dioxide 21 mmol/L (22-30); Creatinine 1 0.77 mg/dL (0.66-1.25); EST GLOMERULAR FILTRATION RATE > 60.0 ML/MIN; Glucose 119 mg/dL (74-106); MAGNESIUM 1.5 mg/dL (1.6-2.3); PHOSPHOROUS 3.3 mg/dL (2.5-4.5); Potassium 3.7 mmol/L (3.5-5.1); SGOT/AST 43 U/L (17-59); SGPT/ALT 92 U/L (0-50); SODIUM 139 mmol/L (137-145); Total Protein 5.9 g/dL (6.3-8.2)
[2023-06-21 20:21] LABS: ABO TYPING B; Antibody Screen NEGATIVE (NEGATIVE); RH TYPING POSITIVE
[2023-06-21] MEDS ORDERED: Calcium Gluconate 10% 1000 MG 1,000 MG in Sodium Chloride 0.9% 100 ML IV ONE (20:28)
[2023-06-21] MEDS: MORPHINE SULFATE 2 MG INJ IV PRN (21:40)
[2023-06-21] MEDS: Zofran 4 MG/2 ML VIAL IV PRN (21:40)
[2023-06-21] MEDS ORDERED: Calcium Gluconate 10% 1000 MG IV ONE (21:59)
[2023-06-21] MEDS ORDERED: Sodium Chloride 100ML MINI-BAG PLUS 100 ML IV ONE (22:02)
[2023-06-21] MEDS: NORCO 5/325 MG PO PRN (23:13)
[2023-06-22] MEDS ORDERED: Dextrose 5% -0.45 NaCl 1000 ML 1,000 ML IV ONE (00:23)
[2023-06-22] MEDS: Dextrose 5% -0.45 NaCl 1000 ML 1,000 ML IV SCH ×4 (00:27→23:44)
[2023-06-22] MEDS: MORPHINE SULFATE 2 MG INJ IV PRN ×2 (00:41→04:38)
[2023-06-22] MEDS: NORCO 5/325 MG PO PRN ×2 (03:20→07:28)
[2023-06-22 04:06] LABS: Hematocrit 33.9 % (42-50); Hemoglobin 10.9 g/dL (12.5-18.0); Mean Cell Volume 87.4 fL (78-100); Mean Corpuscular Hemoglobin 28.1 pg (26-32); Mean Corpuscular Hgb Concent. 32.2 g/dL (32-36); Mean Platelet Volume 9.1 fL (7.5-11.0); Platelet Count 310 x10^3/uL (150-450); Red Blood Count 3.88 x10^6/uL (4.1-5.6); Red Cell Distribution Width 13.2 % (11.5-14.0); White Blood Count 10.2 x10^3/uL (4.0-10.5)
[2023-06-22 04:24] LABS: ALBUMIN 2.8 g/dL (3.5-5.0); ALKALINE PHOSPHATASE 78 U/L (38-126); ANION GAP 13.7 MEQ/L (5-15); BLOOD UREA NITROGEN 10 mg/dL (9-20); CHLORIDE 106 mmol/L (98-107); Calcium 7.8 mg/dL (8.4-10.2); Carbon Dioxide 22 mmol/L (22-30); Creatinine 1 0.67 mg/dL (0.66-1.25); EST GLOMERULAR FILTRATION RATE > 60.0 ML/MIN; Glucose 94 mg/dL (74-106); Potassium 3.9 mmol/L (3.5-5.1); SGOT/AST 32 U/L (17-59); SGPT/ALT 78 U/L (0-50); SODIUM 138 mmol/L (137-145); Total Protein 5.4 g/dL (6.3-8.2)
[2023-06-22 04:25] LABS: MAGNESIUM 1.6 mg/dL (1.6-2.3); PHOSPHOROUS 3.8 mg/dL (2.5-4.5)
[2023-06-22] MEDS: MORPHINE SULFATE 4 MG INJ IV PRN ×5 (06:49→18:50)
[2023-06-22] MEDS: Lactated Ringers 1,000 ML IV SCH (07:25)
[2023-06-22] MEDS: Carafate 1 GM PO SCH ×4 (07:32→21:14)
--- NOTE | 2023-06-22 08:25 | XRAY ---
CLINICAL HISTORY:increased pain COMPARISON:05/07/2023 CT abdomen. TECHNIQUE:X-ray of abdomen, AP view. FINDINGS: Surgical laura seen in paramedian location along the anterior abdominal wall and in the left hypochondrium. The stomach, small bowel, and colon gas patterns are all normal and there is no free air around the falciform ligament. No definite radiopaque shadows could be depicted. Scanned osseous structures are unremarkable. IMPRESSION: 1. The stomach, small bowel, and colon gas patterns are all normal and there is no free air around the falciform ligament. 2. No evidence of bowel obstruction or perforation noted. 3. No definite radio opaque shadows that could be depicted along the anatomical course of kidneys, ureters and urinary bladder. Electronically Signed by: Carlitos Abbott MD. 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
[2023-06-22] MEDS: COREG 12.5 MG PO SCH ×2 (08:49→21:13)
[2023-06-22] MEDS: PROTONIX 40 MG IV IV SCH ×2 (08:49→21:13)
[2023-06-22] MEDS: NEURONTIN PO SCH ×2 (08:49→21:13)
[2023-06-22] MEDS: Ecotrin 325 MG PO SCH (08:49)
[2023-06-22] MEDS: ZOCOR 20MG PO SCH (08:49)
[2023-06-22] MEDS: BUSPAR 5 MG PO SCH ×2 (08:50→21:14)
[2023-06-22] MEDS: PROZAC 10 MG PO SCH (08:50)
[2023-06-22] MEDS: Zofran 4 MG/2 ML VIAL IV PRN (09:58)
[2023-06-22] MEDS: ENOXAPARIN SODIUM SQ SCH (11:12)
--- NOTE | 2023-06-22 12:36 | PCM.NOTE ---
Date and Time: 06/22/23 1230 Subjective Assessment: 06/21/23 is a 58 year old male with a pmhx of COPD,GERD, HTN, HLD, PAD, CKD, pancreatitis, and DM. He presented to the ED on 06/18/23 and was admitted for observation of atypical substernal pain that is worse sitting up and is pleuritic. EKG and troponin negative. DDimer only slightly elevated, no CTA needed. Patient endorsed mid epigastric pain, that has improved from previous days, notices it mostly after consuming a meal. He rates the pain 0/10 on a numerical pain scale, describes it as dull/squeezing. Labs discussed with patient, mostly unremarkable with the exception of elevation in LFT, US abdomen and CT showing chronic cholecystitis. HIDA scan confirmed the need for gallbladder removal. Surgery consulted, and the plan is for gallbladder removal today. Cardiac-barrett, plan for follow up with Dr. Paiz this Saturday for further cardiac workup. Echo reviewed. Patient endorsing improvement of abdominal pain, no chest pain today. Discussed labs, LFT improved from yesterday, HIDA scan results, and surgery plan. Denies fever,cough, SOB, CP, ELIZABETH, dizziness, N/V/D. 06/22/23 Pt lying in the bed. He is having quite a bit of pain today with any movement. He has been yelling out in pain. He has an abdominal binder on as he had an open lap Mya last night with GS. Report is currently unavailable but there seems to have been some involvement with his intestines and a liver biopsy done per his . KUB completed and showed no new concerns. He did receive Cefoxitin and Zosyn in the OR. Will continue Zosyn for antibiotic coverage and try to get his pain under control as well. He denies any other concerns at this time other than abd. pain. - Review of Systems Constitutional: No Fever, No Chills Eyes: No Symptoms Ears, Nose, & Throat: No Symptoms Respiratory: No Cough, No Short Of Breath Cardiac: No Chest Pain, No Edema, No Syncope Abdominal/Gastrointestinal: Abdominal Pain, Other (Abd binder in place), No Naus ea, No Vomiting, No Diarrhea Genitourinary Symptoms: No Dysuria Musculoskeletal: No Back Pain, No Neck Pain Skin: No Rash Neurological: No Dizziness, No Focal Weakness, No Sensory Changes Psychological: No Symptoms Endocrine: No Symptoms Hematologic/Lymphatic: No Symptoms Immunological/Allergic: No Symptoms Objective Exam General Appearance: no apparent distress, alert Neurologic Exam: alert, oriented x 3, cooperative, normal mood/affect, nml cerebellar function, sensation nml, No motor deficits Skin Exam: normal color, warm, dry Eye Exam: PERRL, EOMI, eyes nml inspection Ears, Nose, Throat Exam: normal ENT inspection, pharynx normal, moist mucous membranes Neck Exam: normal inspection, non-tender, supple, full range of motion Respiratory Exam: normal breath sounds, lungs clear, No respiratory distress Cardiovascular Exam: regular rate/rhythm, normal heart sounds Gastrointestinal/Abdomen Exam: soft, normal bowel sounds (decreased X4), tenderness (generalized), No mass Extremity Exam: normal inspection, normal range of motion Back Exam: normal inspection, normal range of motion, No CVA tenderness, No vertebral tenderness Male Genitalia Exam: deferred Rectal Exam: deferred OBJECTIVE DATA Vital Signs: Vital Signs - 24 hr Temp Pulse Resp BP Pulse Ox 06/22/23 11:00 97.0 F 79 18 148/71 93 L 06/22/23 06:52 98.5 F 75 16 160/84 96 06/22/23 06:44 96 06/22/23 06:00 98.4 F 74 16 174/81 96 06/22/23 04:43 73 96 06/22/23 04:31 95 06/22/23 04:00 73 16 165/73 95 06/22/23 03:00 73 19 163/83 96 06/22/23 01:51 77 19 94 L 06/22/23 01:00 76 18 160/77 95 06/22/23 00:00 98.4 F 76 16 170/80 95 06/21/23 23:15 98 F 77 16 156/68 94 L 06/21/23 22:15 76 17 156/81 95 06/21/23 21:45 78 18 164/75 95 06/21/23 21:15 76 18 158/75 93 L 06/21/23 21:00 78 20 154/74 93 L 06/21/23 20:45 76 16 130/81 93 L 06/21/23 20:30 73 16 154/74 93 L 06/21/23 20:15 98.0 F 76 15 141/76 93 L 06/21/23 13:48 97.6 F 65 18 132/64 93 L Pain Assessment - Last Documented Pain Intensity 10 Pain Scale Used 0-10 Pain Scale Intake and Output: Intake & Output 06/20/23 06/21/23 06/22/23 06/23/23 11:59 11:59 11:59 11:59 Intake Total 1900 1060 1281 Output Total 570 Balance 1900 1060 711 Weight 115.2 kg Lab Results: Lab Results-Last 24 Hours 06/21/23 06/21/23 06/21/23 Range/Units 16:31 18:07 19:19 WBC 9.9 (4.0-10.5) x10^3/uL RBC 3.83 L (4.1-5.6) x10^6/uL Hgb 10.7 L (12.5-18.0) g/dL Hct 33.8 L (42-50) % MCV 88.3 (78-100) fL MCH 27.9 (26-32) pg MCHC 31.7 L (32-36) g/dL RDW 13.1 (11.5-14.0) % Plt Count 284 (150-450) x10^3/uL MPV 8.8 (7.5-11.0) fL Puncture Site NA line pCO2 37 37 (35-45) mmHg pO2 96 137 H* (75-100) mmHg Base Excess -0.3 -1.6 (-2.0-2.0) O2 Saturation 97.4 97.6 (94-100) g/dF ABG pH 7.42 7.40 (7.35-7.45) ABG HCO3 24.0 22.9 (22-28) ABG O2 Sat (Measured) 98.5 99.4 (95-100) % Nigel Test NOT APPLICABLE na A-a Gradient 7 -34 a/A Ratio 0.93 1.33 Hemoglobin 10.6 10.0 Carboxyhemoglobin 0.8 1.2 (0.0-6.9) % THgb Methemoglobin 0.3 L 0.6 L (1.4-1.5) % Potassium 3.8 3.7 (3.5-5.1) Glucose 130 H (70-110) Temperature 37.0 37.0 C POC O2 Flow Rate 21 21 % Sodium (137-145) mmol/L Chloride (98-107) mmol/L Carbon Dioxide (22-30) mmol/L Anion Gap (5-15) MEQ/L BUN (9-20) mg/dL Creatinine (0.66-1.25) mg/dL Estimated GFR ML/MIN POC Glucometer (74 to 106) mg/dL Lactic Acid (0.4-2.0) Calcium (8.4-10.2) mg/dL Phosphorus (2.5-4.5) mg/dL Magnesium (1.6-2.3) mg/dL Total Bilirubin (0.2-1.3) mg/dL AST (17-59) U/L ALT (0-50) U/L Alkaline Phosphatase (38-126) U/L Serum Total Protein (6.3-8.2) g/dL Albumin (3.5-5.0) g/dL Lipase (23-300) U/L ABO Group Rh Factor Antibody Screen (NEGATIVE) 06/21/23 06/21/23 06/21/23 Range/Units 19:19 19:19 19:19 WBC (4.0-10.5) x10^3/uL RBC (4.1-5.6) x10^6/uL Hgb (12.5-18.0) g/dL Hct (42-50) % MCV (78-100) fL MCH (26-32) pg MCHC (32-36) g/dL RDW (11.5-14.0) % Plt Count (150-450) x10^3/uL MPV (7.5-11.0) fL Puncture Site pCO2 (35-45) mmHg pO2 (75-100) mmHg Base Excess (-2.0-2.0) O2 Saturation (94-100) g/dF ABG pH (7.35-7.45) ABG HCO3 (22-28) ABG O2 Sat (Measured) (95-100) % Nigel Test A-a Gradient a/A Ratio Hemoglobin Carboxyhemoglobin (0.0-6.9) % THgb Methemoglobin (1.4-1.5) % Potassium 3.7 (3.5-5.1) Glucose 119 H (70-110) Temperature C POC O2 Flow Rate % Sodium 139 (137-145) mmol/L Chloride 108 H (98-107) mmol/L Carbon Dioxide 21 L (22-30) mmol/L Anion Gap 14.1 (5-15) MEQ/L BUN 12 (9-20) mg/dL Creatinine 0.77 (0.66-1.25) mg/dL Estimated GFR > 60.0 ML/MIN POC Glucometer (74 to 106) mg/dL Lactic Acid 0.6 (0.4-2.0) Calcium 7.4 L (8.4-10.2) mg/dL Phosphorus 3.3 (2.5-4.5) mg/dL Magnesium 1.5 L (1.6-2.3) mg/dL Total Bilirubin 0.60 (0.2-1.3) mg/dL AST 43 (17-59) U/L ALT 92 H (0-50) U/L Alkaline Phosphatase 83 (38-126) U/L Serum Total Protein 5.9 L (6.3-8.2) g/dL Albumin 3.1 L (3.5-5.0) g/dL Lipase (23-300) U/L ABO Group B Rh Factor POSITIVE Antibody Screen NEGATIVE (NEGATIVE) 06/21/23 06/22/23 06/22/23 Range/Units 20:58 00:23 04:00 WBC (4.0-10.5) x10^3/uL RBC (4.1-5.6) x10^6/uL Hgb (12.5-18.0) g/dL Hct (42-50) % MCV (78-100) fL MCH (26-32) pg MCHC (32-36) g/dL RDW (11.5-14.0) % Plt Count (150-450) x10^3/uL MPV (7.5-11.0) fL Puncture Site pCO2 (35-45) mmHg pO2 (75-100) mmHg Base Excess (-2.0-2.0) O2 Saturation (94-100) g/dF ABG pH (7.35-7.45) ABG HCO3 (22-28) ABG O2 Sat (Measured) (95-100) % Nigel Test A-a Gradient a/A Ratio Hemoglobin Carboxyhemoglobin (0.0-6.9) % THgb Methemoglobin (1.4-1.5) % Potassium (3.5-5.1) Glucose (70-110) Temperature C POC O2 Flow Rate % Sodium (137-145) mmol/L Chloride (98-107) mmol/L Carbon Dioxide (22-30) mmol/L Anion Gap (5-15) MEQ/L BUN (9-20) mg/dL Creatinine (0.66-1.25) mg/dL Estimated GFR ML/MIN POC Glucometer 97 72 L (74 to 106) mg/dL Lactic Acid 0.9 (0.4-2.0) Calcium (8.4-10.2) mg/dL Phosphorus (2.5-4.5) mg/dL Magnesium (1.6-2.3) mg/dL Total Bilirubin (0.2-1.3) mg/dL AST (17-59) U/L ALT (0-50) U/L Alkaline Phosphatase (38-126) U/L Serum Total Protein (6.3-8.2) g/dL Albumin (3.5-5.0) g/dL Lipase (23-300) U/L ABO Group Rh Factor Antibody Screen (NEGATIVE) 06/22/23 06/22/23 06/22/23 Range/Units 04:03 04:03 04:03 WBC 10.2 (4.0-10.5) x10^3/uL RBC 3.88 L (4.1-5.6) x10^6/uL Hgb 10.9 L (12.5-18.0) g/dL Hct 33.9 L (42-50) % MCV 87.4 (78-100) fL MCH 28.1 (26-32) pg MCHC 32.2 (32-36) g/dL RDW 13.2 (11.5-14.0) % Plt Count 310 (150-450) x10^3/uL MPV 9.1 (7.5-11.0) fL Puncture Site pCO2 (35-45) mmHg pO2 (75-100) mmHg Base Excess (-2.0-2.0) O2 Saturation (94-100) g/dF ABG pH (7.35-7.45) ABG HCO3 (22-28) ABG O2 Sat (Measured) (95-100) % Nigel Test A-a Gradient a/A Ratio Hemoglobin Carboxyhemoglobin (0.0-6.9) % THgb Methemoglobin (1.4-1.5) % Potassium 3.9 (3.5-5.1) Glucose 94 (70-110) Temperature C POC O2 Flow Rate % Sodium 138 (137-145) mmol/L Chloride 106 (98-107) mmol/L Carbon Dioxide 22 (22-30) mmol/L Anion Gap 13.7 (5-15) MEQ/L BUN 10 (9-20) mg/dL Creatinine 0.67 (0.66-1.25) mg/dL Estimated GFR > 60.0 ML/MIN POC Glucometer (74 to 106) mg/dL Lactic Acid (0.4-2.0) Calcium 7.8 L (8.4-10.2) mg/dL Phosphorus 3.8 (2.5-4.5) mg/dL Magnesium 1.6 (1.6-2.3) mg/dL Total Bilirubin 0.40 (0.2-1.3) mg/dL AST 32 (17-59) U/L ALT 78 H (0-50) U/L Alkaline Phosphatase 78 (38-126) U/L Serum Total Protein 5.4 L (6.3-8.2) g/dL Albumin 2.8 L (3.5-5.0) g/dL Lipase (23-300) U/L ABO Group Rh Factor Antibody Screen (NEGATIVE) 06/22/23 06/22/23 06/22/23 Range/Units 05:00 07:20 12:05 WBC (4.0-10.5) x10^3/uL RBC (4.1-5.6) x10^6/uL Hgb (12.5-18.0) g/dL Hct (42-50) % MCV (78-100) fL MCH (26-32) pg MCHC (32-36) g/dL RDW (11.5-14.0) % Plt Count (150-450) x10^3/uL MPV (7.5-11.0) fL Puncture Site pCO2 (35-45) mmHg pO2 (75-100) mmHg Base Excess (-2.0-2.0) O2 Saturation (94-100) g/dF ABG pH (7.35-7.45) ABG HCO3 (22-28) ABG O2 Sat (Measured) (95-100) % Nigel Test A-a Gradient a/A Ratio Hemoglobin Carboxyhemoglobin (0.0-6.9) % THgb Methemoglobin (1.4-1.5) % Potassium (3.5-5.1) Glucose (70-110) Temperature C POC O2 Flow Rate % Sodium (137-145) mmol/L Chloride (98-107) mmol/L Carbon Dioxide (22-30) mmol/L Anion Gap (5-15) MEQ/L BUN (9-20) mg/dL Creatinine (0.66-1.25) mg/dL Estimated GFR ML/MIN POC Glucometer 117 H 103 (74 to 106) mg/dL Lactic Acid (0.4-2.0) Calcium (8.4-10.2) mg/dL Phosphorus (2.5-4.5) mg/dL Magnesium (1.6-2.3) mg/dL Total Bilirubin (0.2-1.3) mg/dL AST (17-59) U/L ALT (0-50) U/L Alkaline Phosphatase (38-126) U/L Serum Total Protein (6.3-8.2) g/dL Albumin (3.5-5.0) g/dL Lipase 15 L (23-300) U/L ABO Group Rh Factor Antibody Screen (NEGATIVE) Radiology Exams: Radiology Procedures Category Date Time Status KUB Stat Exams 06/22/23 07:22 Completed Assessment/Plan (1) Chest pain Current Visit: Yes Status: Acute Assessment & Plan: -Reviewed Stress performed 01/20/20: IMPRESSION: 1) SINUS RHYTHM. 2) PVCS ESPECIALLY WITH TACHYARRHYMIA AND TRIGGERED EVENT. -Patient unsure if he has had any recent imaging -2 gm Na diet -consult cardiology -CXR reviewed as stated in HPI -start ASA 325mg qd and NTG sublingual PRN -serial troponin and ECG -Echo in am -CBC, CMP, DDimer, Mg, Phos, lipid panel, HgbA1c in am -continue appropriate baseline home medications -DVT prophylaxis-Lovenox 40 mg SQ daily 06/19: -Echo pending -Cardiac workup unremarkable. Plan for follow up with Dr. Paiz Saturday for fu rther evaluation 06/20: -resolved 06/21 - Echo: Completed 06/19 IMPRESSION: 1) NO REGIONAL WALL MOTION ABNORMALITY. ESTIMATED GLOBAL LEFT VENTRICULAR EJECTION FRACTION OF AROUND 60 TO 65%. 2) LEFT ATRIAL ENLARGEMENT. 3) LEFT VENTRICULAR HYPERTROPHY. - Pain most likely r/t Gallbladder Code(s): R07.9 - CHEST PAIN, UNSPECIFIED (2) Cholecystitis Current Visit: Yes Status: Acute Assessment & Plan: - Open Mya yesterday by GS- complete report pending - Narcotic pain control - Abd. binder Code(s): K81.9 - CHOLECYSTITIS, UNSPECIFIED (3) CAD (coronary artery disease) Current Visit: Yes Status: Acute Assessment & Plan: -Continue home meds Code(s): I25.10 - ATHSCL HEART DISEASE OF [place] CORONARY ARTERY W/O ANG PCTRS (4) Abdominal pain Current Visit: No Status: Acute Assessment & Plan: -US abdomen/CT concern for cholecystitis -HIDA 06/20 No gallbladder activity with and without morphine augmentation concerning for cholecystitis -Surgery consulted and plan is for surgery today 06/21 06/22 - Post op day #1 Open lap Mya - Pain management with oral and IV narcotic pain medication - Abd binder - KUB 06/22: IMPRESSION: 1. The stomach, small bowel, and colon gas patterns are all normal and there is no free air around the falciform ligament. 2. No evidence of bowel obstruction or perforation noted. 3. No definite radio opaque shadows that could be depicted along the anatomical course of kidneys, ureters and urinary bladder. Code(s): R10.9 - UNSPECIFIED ABDOMINAL PAIN (5) Chronic renal failure Current Visit: Yes Status: Acute Assessment & Plan: -Chronic, no acute issues, at baseline, will continue to monitor renal/lytes daily -Avoid nephrotoxic agents/NSAIDs (6) Diabetes mellitus Current Visit: Yes Status: Acute Assessment & Plan: -Controlled -A1c 05/14/23 at 6.1 -Accucheck AC/HS -Low dose SSI Code(s): E11.9 - TYPE 2 DIABETES MELLITUS WITHOUT COMPLICATIONS (7) Elevated liver enzymes Current Visit: Yes Status: Acute Assessment & Plan: 06/21 - Improved today AST within normal range, ALT 22 06/22 - improved - trend Code(s): R74.8 - ABNORMAL LEVELS OF OTHER SERUM ENZYMES (8) GERD (gastroesophageal reflux disease) Current Visit: Yes Status: Acute Assessment & Plan: -Continue home meds, will add protonix IV 40 bid as well as carafate Code(s): K21.9 - GASTRO-ESOPHAGEAL REFLUX DISEASE WITHOUT ESOPHAGITIS (9) HLD (hyperlipidemia) Current Visit: Yes Status: Acute Assessment & Plan: -continue home med atorvastatin - Lipid panel 06/19- HDL 17 - Advised to improve diet Code(s): E78.5 - HYPERLIPIDEMIA, UNSPECIFIED (10) Essential hypertension Current Visit: No Status: Chronic Assessment & Plan: -Stable, continue home meds, hydralazine prn DC plan: 3-4 days Code status: Full VTE: Lovenox Code(s): I10 - ESSENTIAL (PRIMARY) HYPERTENSION
[2023-06-22] MEDS: PIPERACILLIN/TAZOBACTAM 3.375 GM in Sodium Chloride 100ML MINI-BAG PLUS 100 ML IV SCH ×3 (13:16→23:01)
[2023-06-23] MEDS: PIPERACILLIN/TAZOBACTAM 3.375 GM in Sodium Chloride 100ML MINI-BAG PLUS 100 ML IV SCH (05:36)
[2023-06-23 06:37] LABS: Hematocrit 29.1 % (42-50); Hemoglobin 9.1 g/dL (12.5-18.0); Mean Cell Volume 88.7 fL (78-100); Mean Corpuscular Hemoglobin 27.7 pg (26-32); Mean Corpuscular Hgb Concent. 31.3 g/dL (32-36); Mean Platelet Volume 9.1 fL (7.5-11.0); Platelet Count 288 x10^3/uL (150-450); Red Blood Count 3.28 x10^6/uL (4.1-5.6); Red Cell Distribution Width 13.6 % (11.5-14.0); White Blood Count 8.6 x10^3/uL (4.0-10.5)
[2023-06-23 06:55] LABS: ALBUMIN 2.8 g/dL (3.5-5.0); ALKALINE PHOSPHATASE 67 U/L (38-126); ANION GAP 10.5 MEQ/L (5-15); BLOOD UREA NITROGEN 9 mg/dL (9-20); CHLORIDE 103 mmol/L (98-107); Calcium 7.7 mg/dL (8.4-10.2); Carbon Dioxide 24 mmol/L (22-30); Creatinine 1 0.82 mg/dL (0.66-1.25); EST GLOMERULAR FILTRATION RATE > 60.0 ML/MIN; Glucose 127 mg/dL (74-106); Potassium 3.4 mmol/L (3.5-5.1); SGOT/AST 26 U/L (17-59); SGPT/ALT 47 U/L (0-50); SODIUM 134 mmol/L (137-145); Total Protein 5.6 g/dL (6.3-8.2)
[2023-06-23 06:58] LABS: MAGNESIUM 1.6 mg/dL (1.6-2.3); PHOSPHOROUS 2.5 mg/dL (2.5-4.5)
[2023-06-23] MEDS ORDERED: Klor Con PO ONE (07:21)
[2023-06-23] MEDS: Carafate 1 GM PO SCH ×4 (07:49→21:52)
[2023-06-23] MEDS: NORCO 5/325 MG PO PRN ×3 (08:12→20:43)
[2023-06-23] MEDS: Dextrose 5% -0.45 NaCl 1000 ML 1,000 ML IV SCH ×2 (08:13→18:08)
[2023-06-23] MEDS: ZOCOR 20MG PO SCH (09:26)
[2023-06-23] MEDS: NEURONTIN PO SCH ×2 (09:26→21:53)
[2023-06-23] MEDS: COREG 12.5 MG PO SCH ×2 (09:26→21:53)
[2023-06-23] MEDS: Ecotrin 325 MG PO SCH (09:26)
[2023-06-23] MEDS: ENOXAPARIN SODIUM SQ SCH (09:26)
[2023-06-23] MEDS: BUSPAR 5 MG PO SCH ×2 (09:26→21:53)
[2023-06-23] MEDS: PROZAC 10 MG PO SCH (09:26)
[2023-06-23] MEDS: PROTONIX 40 MG IV IV SCH ×2 (09:26→21:53)
--- NOTE | 2023-06-23 10:58 | PCM.NOTE ---
Date and Time: 06/23/23 1040 Subjective Assessment: 06/21/23 is a 58 year old male with a pmhx of COPD,GERD, HTN, HLD, PAD, CKD, pancreatitis, and DM. He presented to the ED on 06/18/23 and was admitted for observation of atypical substernal pain that is worse sitting up and is pleuritic. EKG and troponin negative. DDimer only slightly elevated, no CTA needed. Patient endorsed mid epigastric pain, that has improved from previous days, notices it mostly after consuming a meal. He rates the pain 0/10 on a numerical pain scale, describes it as dull/squeezing. Labs discussed with patient, mostly unremarkable with the exception of elevation in LFT, US abdomen and CT showing chronic cholecystitis. HIDA scan confirmed the need for gallbladder removal. Surgery consulted, and the plan is for gallbladder removal today. Cardiac-barrett, plan for follow up with Dr. Paiz this Saturday for further cardiac workup. Echo reviewed. Patient endorsing improvement of abdominal pain, no chest pain today. Discussed labs, LFT improved from yesterday, HIDA scan results, and surgery plan. Denies fever,cough, SOB, CP, ELIZABETH, dizziness, N/V/D. 06/22/23 Pt lying in the bed. He is having quite a bit of pain today with any movement. He has been yelling out in pain. He has an abdominal binder on as he had an open lap Fabby last night with GS. Report is currently unavailable but there seems to have been some involvement with his intestines and a liver biopsy done per his . KUB completed and showed no new concerns. He did receive Cefoxitin and Zosyn in the OR. Will continue Zosyn for antibiotic coverage and try to get his pain under control as well. He denies any other concerns at this time other than abd. pain. 06/23/23 Pt sitting up in chair today. Plan is to get up and walk. His pain has improved. He now has a cough with clear sputum production. Chest XR and Mucinex ordered. Wound culture came back positive for e-coli. Stopped Zosyn. Continue Cefoxitin. K+ 3.4 today- replaced. Pt did have a temp overnight of 99.0 F. He is otherwise doing well. Denies CP, SOB, N/V/D. - Review of Systems Constitutional: Fever, No Chills Eyes: No Symptoms Ears, Nose, & Throat: No Symptoms Respiratory: Cough, No Short Of Breath Cardiac: No Chest Pain, No Edema, No Syncope Abdominal/Gastrointestinal: Abdominal Pain, No Nausea, No Vomiting, No Diarrhea Genitourinary Symptoms: No Dysuria Musculoskeletal: No Back Pain, No Neck Pain Skin: Other (abd binder), No Rash Neurological: No Dizziness, No Focal Weakness, No Sensory Changes Psychological: No Symptoms Endocrine: No Symptoms Hematologic/Lymphatic: No Symptoms Immunological/Allergic: No Symptoms Objective Exam General Appearance: no apparent distress, alert, obese Neurologic Exam: alert, oriented x 3, cooperative, normal mood/affect, nml cerebellar function, sensation nml, No motor deficits Skin Exam: normal color, warm, dry, other (midline incision with Abd. binder, Serosanguineous drainage seen in MARCO A drain) Wound Assessment: Skin/Wound Assessment Wound/Incision Assessment Start: 06/22/23 13:37 Text: Status: Active Freq: Q6H Protocol: Document 06/23/23 08:00 (Rec: 06/23/23 08:56 [id number]) Wound/Incision Assessment Anterior Medial Abdomen Wound Assessment Shift Assessment Wound Type Incision Drainage Amount None Comment iodoform dressing dry and intact Anterior Medial Drain Type MARCO A drain Drainage Description Sanguineous Odor None/Absent Eye Exam: PERRL, EOMI, eyes nml inspection Ears, Nose, Throat Exam: normal ENT inspection, pharynx normal, moist mucous membranes Neck Exam: normal inspection, non-tender, supple, full range of motion Respiratory Exam: normal breath sounds, lungs clear, No respiratory distress Cardiovascular Exam: regular rate/rhythm, normal heart sounds Gastrointestinal/Abdomen Exam: soft, tenderness (generalized), No mass Extremity Exam: normal inspection, normal range of motion Back Exam: normal inspection, normal range of motion, No CVA tenderness, No vertebral tenderness Male Genitalia Exam: deferred Rectal Exam: deferred OBJECTIVE DATA Vital Signs: Vital Signs - 24 hr Temp Pulse Resp BP Pulse Ox 06/23/23 09:25 97 06/23/23 08:00 18 06/23/23 07:06 97.3 F 71 18 139/64 92 L 06/23/23 04:00 99.1 F 99 H 15 114/50 93 L 06/23/23 00:00 99.4 F 82 16 117/54 93 L 06/22/23 23:43 19 06/22/23 20:00 80 19 122/58 06/22/23 19:50 93 L 06/22/23 19:12 19 06/22/23 19:10 97.9 F 80 19 122/58 94 L 06/22/23 19:00 97.9 F 80 19 122/58 94 L 06/22/23 15:29 94 L 06/22/23 15:00 97.3 F 76 18 147/66 90 L 06/22/23 11:00 97.0 F 79 18 148/71 93 L Pain Assessment - Last Documented Pain Intensity 3 Pain Scale Used 0-10 Pain Scale Intake and Output: Intake & Output 06/20/23 06/21/23 06/22/23 06/23/23 11:59 11:59 11:59 11:59 Intake Total 1900 1060 1281 3899 Output Total 570 3370 Balance 1900 1060 711 529 Weight 115.2 kg Lab Results: Lab Results-Last 24 Hours 06/22/23 06/22/23 06/23/23 Range/Units 05:00 12:05 05:46 WBC (4.0-10.5) x10^3/uL RBC (4.1-5.6) x10^6/uL Hgb (12.5-18.0) g/dL Hct (42-50) % MCV (78-100) fL MCH (26-32) pg MCHC (32-36) g/dL RDW (11.5-14.0) % Plt Count (150-450) x10^3/uL MPV (7.5-11.0) fL Sodium (137-145) mmol/L Potassium (3.5-5.1) mmol/L Chloride (98-107) mmol/L Carbon Dioxide (22-30) mmol/L Anion Gap (5-15) MEQ/L BUN (9-20) mg/dL Creatinine (0.66-1.25) mg/dL Estimated GFR ML/MIN Glucose (74-106) mg/dL POC Glucometer 103 (74 to 106) mg/dL Lactic Acid (0.4-2.0) Calcium (8.4-10.2) mg/dL Phosphorus 2.5 (2.5-4.5) mg/dL Magnesium 1.6 (1.6-2.3) mg/dL Total Bilirubin (0.2-1.3) mg/dL AST (17-59) U/L ALT (0-50) U/L Alkaline Phosphatase (38-126) U/L Serum Total Protein (6.3-8.2) g/dL Albumin (3.5-5.0) g/dL Lipase 15 L (23-300) U/L 06/23/23 06/23/23 06/23/23 Range/Units 05:46 05:46 06:40 WBC 8.6 (4.0-10.5) x10^3/uL RBC 3.28 L (4.1-5.6) x10^6/uL Hgb 9.1 L (12.5-18.0) g/dL Hct 29.1 L (42-50) % MCV 88.7 (78-100) fL MCH 27.7 (26-32) pg MCHC 31.3 L (32-36) g/dL RDW 13.6 (11.5-14.0) % Plt Count 288 (150-450) x10^3/uL MPV 9.1 (7.5-11.0) fL Sodium 134 L (137-145) mmol/L Potassium 3.4 L (3.5-5.1) mmol/L Chloride 103 (98-107) mmol/L Carbon Dioxide 24 (22-30) mmol/L Anion Gap 10.5 (5-15) MEQ/L BUN 9 (9-20) mg/dL Creatinine 0.82 (0.66-1.25) mg/dL Estimated GFR > 60.0 ML/MIN Glucose 127 H (74-106) mg/dL POC Glucometer (74 to 106) mg/dL Lactic Acid 0.5 (0.4-2.0) Calcium 7.7 L (8.4-10.2) mg/dL Phosphorus (2.5-4.5) mg/dL Magnesium (1.6-2.3) mg/dL Total Bilirubin 0.40 (0.2-1.3) mg/dL AST 26 (17-59) U/L ALT 47 (0-50) U/L Alkaline Phosphatase 67 (38-126) U/L Serum Total Protein 5.6 L (6.3-8.2) g/dL Albumin 2.8 L (3.5-5.0) g/dL Lipase (23-300) U/L Radiology Exams: Radiology Procedures Category Date Time Status CHEST 2 VIEWS (PA AND LAT) Routine Exams 06/23/23 10:24 Ordered KUB Stat Exams 06/22/23 07:22 Completed Assessment/Plan (1) Chest pain Current Visit: Yes Status: Acute Assessment & Plan: -Reviewed Stress performed 01/20/20: IMPRESSION: 1) SINUS RHYTHM. 2) PVCS ESPECIALLY WITH TACHYARRHYMIA AND TRIGGERED EVENT. -Patient unsure if he has had any recent imaging -2 gm Na diet -consult cardiology -CXR reviewed as stated in HPI -start ASA 325mg qd and NTG sublingual PRN -serial troponin and ECG -Echo in am -CBC, CMP, DDimer, Mg, Phos, lipid panel, HgbA1c in am -continue appropriate baseline home medications -DVT prophylaxis-Lovenox 40 mg SQ daily 06/19: -Echo pending -Cardiac workup unremarkable. Plan for follow up with Dr. Paiz Saturday for further evaluation 06/20: -resolved 06/21 - Echo: Completed 06/19 IMPRESSION: 1) NO REGIONAL WALL MOTION ABNORMALITY. ESTIMATED GLOBAL LEFT VENTRICULAR EJECTION FRACTION OF AROUND 60 TO 65%. 2) LEFT ATRIAL ENLARGEMENT. 3) LEFT VENTRICULAR HYPERTROPHY. - Pain most likely r/t Gallbladder 06/22 - resolved Code(s): R07.9 - CHEST PAIN, UNSPECIFIED (2) Cholecystitis Current Visit: Yes Status: Acute Assessment & Plan: - Open Fabby yesterday by GS- complete report pending - Narcotic pain control - Abd. binder - MARCO A drain - IS 06/23 - POD #2 - pain controlled - Up in chair and walking on unit - Abd binder - MARCO A drain in place - wound culture + for e-coli - Cont cefoxitin prescribed by surgery Code(s): K81.9 - CHOLECYSTITIS, UNSPECIFIED (3) CAD (coronary artery disease) Current Visit: Yes Status: Acute Assessment & Plan: -Continue home meds Code(s): I25.10 - ATHSCL HEART DISEASE OF [place] CORONARY ARTERY W/O ANG PCTRS (4) Abdominal pain Current Visit: No Status: Acute Assessment & Plan: -US abdomen/CT concern for cholecystitis -HIDA 06/20 No gallbladder activity with and without morphine augmentation concerning for cholecystitis -Surgery consulted and plan is for surgery today 06/21 06/22 - Post op day #1 Open lap Fabby - Pain management with oral and IV narcotic pain medication - Abd binder - KUB 06/22: IMPRESSION: 1. The stomach, small bowel, and colon gas patterns are all normal and there is no free air around the falciform ligament. 2. No evidence of bowel obstruction or perforation noted. 3. No definite radio opaque shadows that could be depicted along the anatomical course of kidneys, ureters and urinary bladder. 06/23 - POD #2 lap fabby - pain has improved - pt sitting up and walking on unit. Code(s): R10.9 - UNSPECIFIED ABDOMINAL PAIN (5) Chronic renal failure Current Visit: Yes Status: Acute Assessment & Plan: -Chronic, no acute issues, at baseline, will continue to monitor renal/lytes daily -Avoid nephrotoxic agents/NSAIDs (6) Diabetes mellitus Current Visit: Yes Status: Acute Assessment & Plan: -Controlled -A1c 05/14/23 at 6.1 -Accucheck AC/HS -Low dose SSI Code(s): E11.9 - TYPE 2 DIABETES MELLITUS WITHOUT COMPLICATIONS (7) Elevated liver enzymes Current Visit: Yes Status: Acute Assessment & Plan: 06/21 - Improved today AST within normal range, ALT 22 06/22 - improved - trend 06/23 - resolved Code(s): R74.8 - ABNORMAL LEVELS OF OTHER SERUM ENZYMES (8) GERD (gastroesophageal reflux disease) Current Visit: Yes Status: Acute Assessment & Plan: -Continue home meds, will add protonix IV 40 bid as well as carafate Code(s): K21.9 - GASTRO-ESOPHAGEAL REFLUX DISEASE WITHOUT ESOPHAGITIS (9) HLD (hyperlipidemia) Current Visit: Yes Status: Acute Assessment & Plan: -continue home med atorvastatin - Lipid panel 06/19- HDL 17 - Advised to improve diet Code(s): E78.5 - HYPERLIPIDEMIA, UNSPECIFIED (10) Essential hypertension Current Visit: No Status: Chronic Assessment & Plan: -Stable, continue home meds, hydralazine prn Code(s): I10 - ESSENTIAL (PRIMARY) HYPERTENSION (11) Cough Current Visit: Yes Status: Acute Assessment & Plan: - mucinex - IS - Chest XR 06/23- pending DC plan: 3-4 days Code status: Full VTE: Lovenox Code(s): R05.9 - COUGH, UNSPECIFIED
[2023-06-23] MEDS: Mucinex 600MG ER Tabs PO SCH ×2 (11:05→21:53)
[2023-06-23] MEDS: MORPHINE SULFATE 4 MG INJ IV PRN (11:06)
--- NOTE | 2023-06-23 11:43 | XRAY ---
CLINICAL HISTORY:cough, fever COMPARISON:06/18/2023 TECHNIQUE:X-ray of the chest, PA, and lateral 2 views. FINDINGS: Exaggerated broncho vascular markings redemonstrated. Suspected well-defined rounded shadow 2.3 x 2.6cm redemonstrated in the left mid zone, would recommend CT scan chest if clinically indicated. Normal configuration of the mediastinum. The manuel are normal in size and position. The cardiac size is normal. Costophrenic and cardiophrenic angles are clear. Retrocardiac and retrosternal spaces are normal. The bony thorax is unremarkable. IMPRESSION: Exaggerated broncho vascular markings redemonstrated. A suspected well-defined rounded shadow redemonstrated in the left mid zone would recommend CT scan chest if clinically indicated. Electronically Signed by: Carlitos Abbott MD. (06/23/2023 10:42:17 TEACHING ASSOCIATE)
--- NOTE | 2023-06-23 15:01 | XRAY ---
CLINICAL HISTORY:abnormal chest XR COMPARISON:CXR 06/23/2023, 03:24, CT abdomen, 05/07/2023. TECHNIQUE:Multiplanar non-contrast CT chest performed through chest. CTDI 15.83, DLP 644.32 FINDINGS: There is a well-defined rounded, minimally cavitating lesion with central calcification and peripheral soft tissue noted in the peripheral subpleural region of left lung field, upper lobe, and posterior segment. It measures 2.3 x 2.0 cm. There are minimal fibrotic strands noted in adjacent parenchyma. Few calcified left hilar lymph nodes were noted. Minimal bibasal-dependent fine atelectatic bands were noted. Otherwise, no aniya consolidation or collapse was noted. No other thoracic lymphadenopathy. No encysted or free pleural effusion was noted. Heart size normal with no pericardial effusion. The airway is maintained. In the abdomen, mild pneumoperitoneum and a metallic object not confounding to any structure noted in the right upper quadrant? displaced stent clinical correlation suggested. These findings not seen on prior CT, clinical correlation was suggested. Splenic calcifications noted. Mild thickening at the gastric pylorus and its junction with duodenum noted, needs clinical correlation, this could be site of perforation and source of pneumoperitoneum, correlation to prior data and dedicated workup recommended. IMPRESSION: 1. Minimally cavitating calcified and soft tissue density nodular lesion in left lung field upper lobe with left hilar calcified lymph nodes and splenic calcifications. 2. Possible granulomatous disease cannot be excluded needs clinical correlation. 3. In the abdomen, mild pneumoperitoneum and a tubular object not corresponding to any structure were noted in the right upper quadrant ? displaced stent clinical correlation suggested. These findings were not seen on prior CT, clinical correlation was suggested. Splenic calcifications noted. Mild thickening at the gastric pylorus and its junction with duodenum noted, needs clinical correlation, this could be site of perforation and source of pneumoperitoneum, correlation to prior data and dedicated workup recommended. [facility] ER office was called at at 01:52 PM OIL GAUGER, 06/23/2023 and the critical medical findings were verbally communicated with Dai. Electronically Signed by: Carlitos Abbott MD. (06/23/2023 14:00:48 OIL GAUGER)
[2023-06-24] MEDS ORDERED: Sodium Chloride 100ML MINI-BAG PLUS 100 ML IV ONE ×2 (00:33→06:18)
[2023-06-24] MEDS ORDERED: PIPERACILLIN/TAZOBACTAM IV ONE ×2 (00:33→06:17)
[2023-06-24] MEDS: PIPERACILLIN/TAZOBACTAM 3.375 GM in Sodium Chloride 100ML MINI-BAG PLUS 100 ML IV SCH ×5 (00:52→23:02)
[2023-06-24] MEDS: NORCO 5/325 MG PO PRN ×5 (00:56→20:04)
[2023-06-24] MEDS: Dextrose 5% -0.45 NaCl 1000 ML 1,000 ML IV SCH ×3 (02:23→23:02)
[2023-06-24] MEDS: MORPHINE SULFATE 4 MG INJ IV PRN ×2 (02:31→06:49)
[2023-06-24 05:03] LABS: Hematocrit 28.7 % (42-50); Mean Cell Volume 88.3 fL (78-100); Mean Corpuscular Hemoglobin 27.7 pg (26-32); Mean Corpuscular Hgb Concent. 31.4 g/dL (32-36); Mean Platelet Volume 9.2 fL (7.5-11.0); Platelet Count 268 x10^3/uL (150-450); Red Blood Count 3.25 x10^6/uL (4.1-5.6); Red Cell Distribution Width 13.4 % (11.5-14.0); White Blood Count 6.3 x10^3/uL (4.0-10.5)
[2023-06-24 05:16] LABS: ANION GAP 11.5 MEQ/L (5-15); BLOOD UREA NITROGEN 6 mg/dL (9-20); CHLORIDE 105 mmol/L (98-107); Calcium 7.9 mg/dL (8.4-10.2); Glucose 114 mg/dL (74-106); Potassium 3.6 mmol/L (3.5-5.1); Total Protein 5.1 g/dL (6.3-8.2)
[2023-06-24 05:32] LABS: ALBUMIN 2.5 g/dL (3.5-5.0); ALKALINE PHOSPHATASE 65 U/L (38-126); Carbon Dioxide 24 mmol/L (22-30); EST GLOMERULAR FILTRATION RATE > 60.0 ML/MIN; MAGNESIUM 1.8 mg/dL (1.6-2.3); PHOSPHOROUS 2.3 mg/dL (2.5-4.5); SGOT/AST 19 U/L (17-59); SGPT/ALT 36 U/L (0-50); SODIUM 137 mmol/L (137-145)
[2023-06-24] MEDS ORDERED: Neutra-Phos Packet PO ONE (07:31)
[2023-06-24] MEDS: Carafate 1 GM PO SCH ×4 (09:05→21:06)
[2023-06-24] MEDS: Mucinex 600MG ER Tabs PO SCH ×2 (09:12→21:06)
[2023-06-24] MEDS: BUSPAR 5 MG PO SCH ×2 (09:12→21:06)
[2023-06-24] MEDS: Ecotrin 325 MG PO SCH (09:12)
[2023-06-24] MEDS: PROZAC 10 MG PO SCH (09:12)
[2023-06-24] MEDS: ZOCOR 20MG PO SCH (09:12)
[2023-06-24] MEDS: PROTONIX 40 MG IV IV SCH ×2 (09:13→21:06)
[2023-06-24] MEDS: ENOXAPARIN SODIUM SQ SCH (09:13)
[2023-06-24] MEDS: COREG 12.5 MG PO SCH ×2 (09:13→21:06)
[2023-06-24] MEDS: NEURONTIN PO SCH ×2 (09:13→21:06)
[2023-06-24] MEDS ORDERED: Docusate Sodium 100 MG PO PRN (09:33)
--- NOTE | 2023-06-24 09:43 | PCM.NOTE ---
Date and Time: 06/24/23 0933 Subjective Assessment: 06/21/23 is a 58 year old male with a pmhx of COPD,GERD, HTN, HLD, PAD, CKD, pancreatitis, and DM. He presented to the ED on 06/18/23 and was admitted for observation of atypical substernal pain that is worse sitting up and is pleuritic. EKG and troponin negative. DDimer only slightly elevated, no CTA needed. Patient endorsed mid epigastric pain, that has improved from previous days, notices it mostly after consuming a meal. He rates the pain 0/10 on a numerical pain scale, describes it as dull/squeezing. Labs discussed with patient, mostly unremarkable with the exception of elevation in LFT, US abdomen and CT showing chronic cholecystitis. HIDA scan confirmed the need for gallbladder removal. Surgery consulted, and the plan is for gallbladder removal today. Cardiac-barrett, plan for follow up with Dr. Paiz this Saturday for further cardiac workup. Echo reviewed. Patient endorsing improvement of abdominal pain, no chest pain today. Discussed labs, LFT improved from yesterday, HIDA scan results, and surgery plan. Denies fever,cough, SOB, CP, ELIZABETH, dizziness, N/V/D. 06/22/23 Pt lying in the bed. He is having quite a bit of pain today with any movement. He has been yelling out in pain. He has an abdominal binder on as he had an open lap Fabby last night with GS. Report is currently unavailable but there seems to have been some involvement with his intestines and a liver biopsy done per his . KUB completed and showed no new concerns. He did receive Cefoxitin and Zosyn in the OR. Will continue Zosyn for antibiotic coverage and try to get his pain under control as well. He denies any other concerns at this time other than abd. pain. 06/23/23 Pt sitting up in chair today. Plan is to get up and walk. His pain has improved. He now has a cough with clear sputum production. Chest XR and Mucinex ordered. Wound culture came back positive for e-coli. Stopped Zosyn. Continue Cefoxitin. K+ 3.4 today- replaced. Pt did have a temp overnight of 99.0 F. He is otherwise doing well. Denies CP, SOB, N/V/D. Correction: after further discussion with nursing staff it shows that cefoxitin is an active medication but pt is not receiving this. It was not stopped on DEC after surgery. Zosyn continued. Will D/C cefoxitin from DEC. Surgery reviewed CT results and were non-concerned with findings. 06/24/23 Pt resting in bed. He feels he may have done too much yesterday with walking and sitting up in the chair as he has increased abd. pain today. He continues to wear the abd. binder and has the MARCO A drain. No fever overnight, denies CP, SOB, N/V. He has not had a BM yet and stool softener started today. Phos low and replaced. - Review of Systems Constitutional: No Fever, No Chills Eyes: No Symptoms Ears, Nose, & Throat: No Symptoms Respiratory: No Cough, No Short Of Breath Cardiac: No Chest Pain, No Edema, No Syncope Abdominal/Gastrointestinal: Abdominal Pain, No Nausea, No Vomiting, No Diarrhea Genitourinary Symptoms: No Dysuria Musculoskeletal: No Back Pain, No Neck Pain Skin: No Rash Neurological: No Dizziness, No Focal Weakness, No Sensory Changes Psychological: No Symptoms Endocrine: No Symptoms Hematologic/Lymphatic: No Symptoms Immunological/Allergic: No Symptoms Objective Exam General Appearance: no apparent distress, alert Neurologic Exam: alert, oriented x 3, cooperative, normal mood/affect, nml cerebellar function, sensation nml, No motor deficits Skin Exam: normal color, warm, dry Wound Assessment: Skin/Wound Assessment Wound/Incision Assessment Start: 06/22/23 13:37 Text: Status: Active Freq: Q6H Protocol: Document 06/24/23 08:00 EK (Rec: 06/24/23 08:09 EK [id number]) Wound/Incision Assessment Anterior Medial Abdomen Wound Assessment Shift Assessment Wound Type Incision Dressing Status Dry & Intact Drainage Amount None Comment island border dressing with old shadowing present - abdominal binder in place Anterior Medial Drain Type MARCO A drain Eye Exam: PERRL, EOMI, eyes nml inspection Ears, Nose, Throat Exam: normal ENT inspection, pharynx normal, moist mucous membranes Neck Exam: normal inspection, non-tender, supple, full range of motion Respiratory Exam: normal breath sounds, lungs clear, No respiratory distress Cardiovascular Exam: regular rate/rhythm, normal heart sounds Gastrointestinal/Abdomen Exam: soft, tenderness (generalized), other (hypoactive BS x4, abd binder, MARCO A drain intact with serosanguineous drainage), No mass Extremity Exam: normal inspection, normal range of motion Back Exam: normal inspection, normal range of motion, No CVA tenderness, No vertebral tenderness Male Genitalia Exam: deferred Rectal Exam: deferred OBJECTIVE DATA Vital Signs: Vital Signs - 24 hr Temp Pulse Resp BP Pulse Ox 06/24/23 08:00 21 06/24/23 07:35 96.6 F 67 18 161/70 96 06/24/23 07:21 94 L 06/24/23 04:00 18 06/24/23 03:43 98.4 F 68 14 93 L 06/24/23 00:00 98.5 F 64 19 170/68 94 L 06/23/23 20:00 98.6 F 68 22 172/75 94 L 06/23/23 19:50 92 L 06/23/23 16:00 18 06/23/23 15:57 97.0 F 65 18 158/65 94 L 06/23/23 12:00 97.3 F 71 18 139/64 92 L Pain Assessment - Last Documented Pain Intensity 3 Pain Scale Used 0-10 Pain Scale Intake and Output: Intake & Output 06/21/23 06/22/23 06/23/23 06/24/23 11:59 11:59 11:59 11:59 Intake Total 1060 1281 3899 1736 Output Total 570 3420 5340 Balance 1060 711 429 -3294 Weight 115.2 kg Lab Results: Lab Results-Last 24 Hours 06/24/23 06/24/23 Range/Units 04:24 04:24 WBC 6.3 (4.0-10.5) x10^3/uL RBC 3.25 L (4.1-5.6) x10^6/uL Hgb 9.0 L (12.5-18.0) g/dL Hct 28.7 L (42-50) % MCV 88.3 (78-100) fL MCH 27.7 (26-32) pg MCHC 31.4 L (32-36) g/dL RDW 13.4 (11.5-14.0) % Plt Count 268 (150-450) x10^3/uL MPV 9.2 (7.5-11.0) fL Sodium 137 (137-145) mmol/L Potassium 3.6 (3.5-5.1) mmol/L Chloride 105 (98-107) mmol/L Carbon Dioxide 24 (22-30) mmol/L Anion Gap 11.5 (5-15) MEQ/L BUN 6 L (9-20) mg/dL Creatinine 0.60 L (0.66-1.25) mg/dL Estimated GFR > 60.0 ML/MIN Glucose 114 H (74-106) mg/dL Calcium 7.9 L (8.4-10.2) mg/dL Phosphorus 2.3 L (2.5-4.5) mg/dL Magnesium 1.8 (1.6-2.3) mg/dL Total Bilirubin 0.30 (0.2-1.3) mg/dL AST 19 (17-59) U/L ALT 36 (0-50) U/L Alkaline Phosphatase 65 (38-126) U/L Serum Total Protein 5.1 L (6.3-8.2) g/dL Albumin 2.5 L (3.5-5.0) g/dL Radiology Exams: Radiology Procedures Category Date Time Status CHEST 2 VIEWS (PA AND LAT) Routine Exams 06/23/23 11:02 Completed CHEST WITHOUT CONTRAST [CT] Routine Exams 06/23/23 14:04 Completed Assessment/Plan (1) Chest pain Current Visit: Yes Status: Acute Assessment & Plan: -Reviewed Stress performed 01/20/20: IMPRESSION: 1) SINUS RHYTHM. 2) PVCS ESPECIALLY WITH TACHYARRHYMIA AND TRIGGERED EVENT. -Patient unsure if he has had any recent imaging -2 gm Na diet -consult cardiology -CXR reviewed as stated in HPI -start ASA 325mg qd and NTG sublingual PRN -serial troponin and ECG -Echo in am -CBC, CMP, DDimer, Mg, Phos, lipid panel, HgbA1c in am -continue appropriate baseline home medications -DVT prophylaxis-Lovenox 40 mg SQ daily 06/19: -Echo pending -Cardiac workup unremarkable. Plan for follow up with Dr. Paiz Saturday for further evaluation 06/20: -resolved 06/21 - Echo: Completed 06/19 IMPRESSION: 1) NO REGIONAL WALL MOTION ABNORMALITY. ESTIMATED GLOBAL LEFT VENTRICULAR EJECTION FRACTION OF AROUND 60 TO 65%. 2) LEFT ATRIAL ENLARGEMENT. 3) LEFT VENTRICULAR HYPERTROPHY. - Pain most likely r/t Gallbladder 06/22 - resolved Code(s): R07.9 - CHEST PAIN, UNSPECIFIED (2) Cholecystitis Current Visit: Yes Status: Acute Assessment & Plan: - Open Fabby yesterday by GS- complete report pending - Narcotic pain control - Abd. binder - MARCO A drain - IS 06/23 - POD #2 - pain controlled - Up in chair and walking on unit - Abd binder - MARCO A drain in place - wound culture + for e-coli - Cont Zosyn 06/24 - POD day #3 - increased abd pain - stool softener started - continue with activity Code(s): K81.9 - CHOLECYSTITIS, UNSPECIFIED (3) CAD (coronary artery disease) Current Visit: Yes Status: Acute Assessment & Plan: -Continue home meds Code(s): I25.10 - ATHSCL HEART DISEASE OF [place] CORONARY ARTERY W/O ANG PCTRS (4) Abdominal pain Current Visit: No Status: Acute Assessment & Plan: -US abdomen/CT concern for cholecystitis -HIDA 06/20 No gallbladder activity with and without morphine augmentation concerning for cholecystitis -Surgery consulted and plan is for surgery today 06/21 06/22 - Post op day #1 Open lap Fabby - Pain management with oral and IV narcotic pain medication - Abd binder - KUB 06/22: IMPRESSION: 1. The stomach, small bowel, and colon gas patterns are all normal and there is no free air around the falciform ligament. 2. No evidence of bowel obstruction or perforation noted. 3. No definite radio opaque shadows that could be depicted along the anatomical course of kidneys, ureters and urinary bladder. 06/23 - POD #2 lap fabby - pain has improved - pt sitting up and walking on unit. 06/24 - POD#3 - see lap fabby info above Code(s): R10.9 - UNSPECIFIED ABDOMINAL PAIN (5) Chronic renal failure Current Visit: Yes Status: Acute Assessment & Plan: -Chronic, no acute issues, at baseline, will continue to monitor renal/lytes daily -Avoid nephrotoxic agents/NSAIDs (6) Diabetes mellitus Current Visit: Yes Status: Acute Assessment & Plan: -Controlled -A1c 05/14/23 at 6.1 -Accucheck AC/HS -Low dose SSI Code(s): E11.9 - TYPE 2 DIABETES MELLITUS WITHOUT COMPLICATIONS (7) Elevated liver enzymes Current Visit: Yes Status: Acute Assessment & Plan: 06/21 - Improved today AST within normal range, ALT 22 06/22 - improved - trend 06/23 - resolved Code(s): R74.8 - ABNORMAL LEVELS OF OTHER SERUM ENZYMES (8) GERD (gastroesophageal reflux disease) Current Visit: Yes Status: Acute Assessment & Plan: -Continue home meds, will add protonix IV 40 bid as well as carafate Code(s): K21.9 - GASTRO-ESOPHAGEAL REFLUX DISEASE WITHOUT ESOPHAGITIS (9) HLD (hyperlipidemia) Current Visit: Yes Status: Acute Assessment & Plan: -continue home med atorvastatin - Lipid panel 06/19- HDL 17 - Advised to improve diet Code(s): E78.5 - HYPERLIPIDEMIA, UNSPECIFIED (10) Essential hypertension Current Visit: No Status: Chronic Assessment & Plan: -Stable, continue home meds, hydralazine prn Code(s): I10 - ESSENTIAL (PRIMARY) HYPERTENSION (11) Cough Current Visit: Yes Status: Acute Assessment & Plan: - mucinex - IS - Chest XR 06/23: Exaggerated broncho vascular markings redemonstrated. A suspected well-defined rounded shadow redemonstrated in the left mid zone would recommend CT scan chest if clinically indicated. - Chest CT 06/23: IMPRESSION: 1. Minimally cavitating calcified and soft tissue density nodular lesion in left lung field upper lobe with left hilar calcified lymph nodes and splenic calcifications. 2. Possible granulomatous disease cannot be excluded needs clinical correlation. 3. In the abdomen, mild pneumoperitoneum and a tubular object not corresponding to any structure were noted in the right upper quadrant ? displaced stent clinical correlation suggested. These findings were not seen on prior CT, clinical correlation was suggested. Splenic calcifications noted. Mild thickening at the gastric pylorus and its junction with duodenum noted, needs clinical correlation, this could be site of perforation and source of pneumoperitoneum, correlation to prior data and dedicated workup recommended. - Pt aware of lung lesion and will f/u OP - Surgery reviewed chest CT and no changes at this time. 06/24 - Cough improved DC plan: 3-4 days Code status: Full VTE: Lovenox Code(s): R05.9 - COUGH, UNSPECIFIED
[2023-06-25] MEDS: NORCO 5/325 MG PO PRN ×4 (00:05→20:29)
[2023-06-25] MEDS: MORPHINE SULFATE 4 MG INJ IV PRN (04:11)
[2023-06-25 04:57] LABS: Hemoglobin 9.8 g/dL (12.5-18.0); Mean Cell Volume 87.1 fL (78-100); Mean Corpuscular Hemoglobin 27.5 pg (26-32); Mean Corpuscular Hgb Concent. 31.6 g/dL (32-36); Platelet Count 317 x10^3/uL (150-450); Red Blood Count 3.56 x10^6/uL (4.1-5.6); Red Cell Distribution Width 13.1 % (11.5-14.0); White Blood Count 6.2 x10^3/uL (4.0-10.5)
[2023-06-25] MEDS: PIPERACILLIN/TAZOBACTAM 3.375 GM in Sodium Chloride 100ML MINI-BAG PLUS 100 ML IV SCH ×3 (05:12→18:10)
[2023-06-25 05:21] LABS: ALKALINE PHOSPHATASE 66 U/L (38-126); BLOOD UREA NITROGEN 4 mg/dL (9-20); CHLORIDE 104 mmol/L (98-107); Potassium 3.4 mmol/L (3.5-5.1); SGOT/AST 16 U/L (17-59); SODIUM 138 mmol/L (137-145); Total Protein 5.8 g/dL (6.3-8.2)
[2023-06-25 05:36] LABS: ALBUMIN 2.8 g/dL (3.5-5.0); ANION GAP 11.3 MEQ/L (5-15); Calcium 7.8 mg/dL (8.4-10.2); Carbon Dioxide 25 mmol/L (22-30); EST GLOMERULAR FILTRATION RATE > 60.0 ML/MIN; Glucose 178 mg/dL (74-106); MAGNESIUM 1.8 mg/dL (1.6-2.3); PHOSPHOROUS 2.5 mg/dL (2.5-4.5); SGPT/ALT 29 U/L (0-50)
[2023-06-25] MEDS ORDERED: APRESOLINE 20 MG/ML INJ IV ONE (07:45)
[2023-06-25] MEDS: Carafate 1 GM PO SCH ×4 (07:45→22:50)
[2023-06-25] MEDS: BUSPAR 5 MG PO SCH ×2 (09:01→22:50)
[2023-06-25] MEDS: NEURONTIN PO SCH ×2 (09:01→22:50)
[2023-06-25] MEDS: ZOCOR 20MG PO SCH (09:01)
[2023-06-25] MEDS: PROTONIX 40 MG IV IV SCH ×2 (09:01→22:50)
[2023-06-25] MEDS: Ecotrin 325 MG PO SCH (09:01)
[2023-06-25] MEDS: COREG 12.5 MG PO SCH ×2 (09:01→22:50)
[2023-06-25] MEDS: Mucinex 600MG ER Tabs PO SCH ×2 (09:01→22:50)
[2023-06-25] MEDS: Klor Con PO SCH ×4 (09:01→14:34)
[2023-06-25] MEDS: PROZAC 10 MG PO SCH (09:02)
[2023-06-25] MEDS: ENOXAPARIN SODIUM SQ SCH (09:02)
--- NOTE | 2023-06-25 12:38 | PCM.NOTE ---
Date and Time: 06/25/23 1231 Subjective Assessment: 06/21/23 is a 58 year old male with a pmhx of COPD,GERD, HTN, HLD, PAD, CKD, pancreatitis, and DM. He presented to the ED on 06/18/23 and was admitted for observation of atypical substernal pain that is worse sitting up and is pleuritic. EKG and troponin negative. DDimer only slightly elevated, no CTA needed. Patient endorsed mid epigastric pain, that has improved from previous days, notices it mostly after consuming a meal. He rates the pain 0/10 on a numerical pain scale, describes it as dull/squeezing. Labs discussed with patient, mostly unremarkable with the exception of elevation in LFT, US abdomen and CT showing chronic cholecystitis. HIDA scan confirmed the need for gallbladder removal. Surgery consulted, and the plan is for gallbladder removal today. Cardiac-barrett, plan for follow up with Dr. Paiz this Saturday for further cardiac workup. Echo reviewed. Patient endorsing improvement of abdominal pain, no chest pain today. Discussed labs, LFT improved from yesterday, HIDA scan results, and surgery plan. Denies fever,cough, SOB, CP, ELIZABETH, dizziness, N/V/D. 06/22/23 Pt lying in the bed. He is having quite a bit of pain today with any movement. He has been yelling out in pain. He has an abdominal binder on as he had an open lap Mya last night with GS. Report is currently unavailable but there seems to have been some involvement with his intestines and a liver biopsy done per his . KUB completed and showed no new concerns. He did receive Cefoxitin and Zosyn in the OR. Will continue Zosyn for antibiotic coverage and try to get his pain under control as well. He denies any other concerns at this time other than abd. pain. 06/23/23 Pt sitting up in chair today. Plan is to get up and walk. His pain has improved. He now has a cough with clear sputum production. Chest XR and Mucinex ordered. Wound culture came back positive for e-coli. Stopped Zosyn. Continue Cefoxitin. K+ 3.4 today- replaced. Pt did have a temp overnight of 99.0 F. He is otherwise doing well. Denies CP, SOB, N/V/D. Correction: after further discussion with nursing staff it shows that cefoxitin is an active medication but pt is not receiving this. It was not stopped on DEC after surgery. Zosyn continued. Will D/C cefoxitin from DEC. Surgery reviewed CT results and were non-concerned with findings. 06/24/23 Pt resting in bed. He feels he may have done too much yesterday with walking and sitting up in the chair as he has increased abd. pain today. He continues to wear the abd. binder and has the MARCO A drain. No fever overnight, denies CP, SOB, N/V. He has not had a BM yet and stool softener started today. Phos low and replaced. 06/25/23 Pt sitting up in the chair today. He is feeling better today. He was able to have a large BM today and since then abd. pain has improved. Plan is for d/c tomorrow with continued improvement and eating today. No fever overnight, denies CP, SOB, N/V/D. - Review of Systems Constitutional: No Fever, No Chills Eyes: No Symptoms Ears, Nose, & Throat: No Symptoms Respiratory: No Cough, No Short Of Breath Cardiac: No Chest Pain, No Edema, No Syncope Abdominal/Gastrointestinal: Abdominal Pain (generalized tenderness), No Nausea, No Vomiting, No Diarrhea Genitourinary Symptoms: No Dysuria Musculoskeletal: No Back Pain, No Neck Pain Skin: No Rash Neurological: No Dizziness, No Focal Weakness, No Sensory Changes Psychological: No Symptoms Endocrine: No Symptoms Hematologic/Lymphatic: No Symptoms Immunological/Allergic: No Symptoms Objective Exam General Appearance: no apparent distress, alert Neurologic Exam: alert, oriented x 3, cooperative, normal mood/affect, nml cerebellar function, sensation nml, No motor deficits Skin Exam: normal color, warm, dry Wound Assessment: Skin/Wound Assessment Wound/Incision Assessment Start: 06/22/23 13:37 Text: Status: Active Freq: Q6H Protocol: Document 06/25/23 08:00 REBECA (Rec: 06/25/23 08:33 [email or web address] [id number]) Wound/Incision Assessment Anterior Medial Abdomen Wound Assessment Shift Assessment Wound Type Incision Dressing Status Dry & Intact Drainage Amount Minimal Drainage Description Brown Comment OLD DRAINAGE NOTED TO ISLAND DRESSING, 3 P[place] SITES NOTED, ABDOMINAL BINDER ALSO ON Anterior Medial Drain Type MARCO A drain Drainage Description Brown Odor None/Absent Wound Photo Photo Taken No Eye Exam: PERRL, EOMI, eyes nml inspection Ears, Nose, Throat Exam: normal ENT inspection, pharynx normal, moist mucous membranes Neck Exam: normal inspection, non-tender, supple, full range of motion Respiratory Exam: normal breath sounds, lungs clear, No respiratory distress Cardiovascular Exam: regular rate/rhythm, normal heart sounds Gastrointestinal/Abdomen Exam: soft, normal bowel sounds (hyperactive BS), tenderness (generalized tenderness), No mass Extremity Exam: normal inspection, normal range of motion Back Exam: normal inspection, normal range of motion, No CVA tenderness, No vertebral tenderness Male Genitalia Exam: deferred Rectal Exam: deferred OBJECTIVE DATA Vital Signs: Vital Signs - 24 hr Temp Pulse Resp BP BP Pulse Ox 06/25/23 11:51 98.1 F 69 16 127/81 96 06/25/23 10:25 96.8 F 72 15 130/62 97 06/25/23 08:00 16 06/25/23 07:13 95 06/25/23 06:54 97.8 F 64 16 190/90 96 06/25/23 04:00 97.7 F 69 20 191/87 95 06/25/23 00:06 62 177/79 06/24/23 23:22 97.7 F 64 18 193/86 95 06/24/23 20:04 95 06/24/23 19:21 96.6 F 68 18 168/74 96 06/24/23 16:00 98.0 F 70 20 122/78 95 Pain Assessment - Last Documented Pain Intensity 5 Pain Scale Used 0-10 Pain Scale Intake and Output: Intake & Output 06/23/23 06/24/23 06/25/23 06/26/23 11:59 11:59 11:59 11:59 Intake Total 3899 1736 3201 Output Total 3420 5940 1775 Balance 479 -4204 1426 Weight 115.2 kg Lab Results: Lab Results-Last 24 Hours 06/25/23 06/25/23 Range/Units 04:00 04:00 WBC 6.2 (4.0-10.5) x10^3/uL RBC 3.56 L (4.1-5.6) x10^6/uL Hgb 9.8 L (12.5-18.0) g/dL Hct 31.0 L (42-50) % MCV 87.1 (78-100) fL MCH 27.5 (26-32) pg MCHC 31.6 L (32-36) g/dL RDW 13.1 (11.5-14.0) % Plt Count 317 (150-450) x10^3/uL MPV 9.0 (7.5-11.0) fL Sodium 138 (137-145) mmol/L Potassium 3.4 L (3.5-5.1) mmol/L Chloride 104 (98-107) mmol/L Carbon Dioxide 25 (22-30) mmol/L Anion Gap 11.3 (5-15) MEQ/L BUN 4 L (9-20) mg/dL Creatinine 0.60 L (0.66-1.25) mg/dL Estimated GFR > 60.0 ML/MIN Glucose 178 H (74-106) mg/dL Calcium 7.8 L (8.4-10.2) mg/dL Phosphorus 2.5 (2.5-4.5) mg/dL Magnesium 1.8 (1.6-2.3) mg/dL Total Bilirubin 0.40 (0.2-1.3) mg/dL AST 16 L (17-59) U/L ALT 29 (0-50) U/L Alkaline Phosphatase 66 (38-126) U/L Serum Total Protein 5.8 L (6.3-8.2) g/dL Albumin 2.8 L (3.5-5.0) g/dL Radiology Exams: Radiology Procedures Category Date Time Status CHEST WITHOUT CONTRAST [CT] Routine Exams 06/23/23 14:04 Completed Assessment/Plan (1) Chest pain Current Visit: Yes Status: Acute Assessment & Plan: -Reviewed Stress performed 01/20/20: IMPRESSION: 1) SINUS RHYTHM. 2) PVCS ESPECIALLY WITH TACHYARRHYMIA AND TRIGGERED EVENT. -Patient unsure if he has had any recent imaging -2 gm Na diet -consult cardiology -CXR reviewed as stated in HPI -start ASA 325mg qd and NTG sublingual PRN -serial troponin and ECG -Echo in am -CBC, CMP, DDimer, Mg, Phos, lipid panel, HgbA1c in am -continue appropriate baseline home medications -DVT prophylaxis-Lovenox 40 mg SQ daily 06/19: -Echo pending -Cardiac workup unremarkable. Plan for follow up with Dr. Paiz Saturday for further evaluation 06/20: -resolved 06/21 - Echo: Completed 06/19 IMPRESSION: 1) NO REGIONAL WALL MOTION ABNORMALITY. ESTIMATED GLOBAL LEFT VENTRICULAR EJECTION FRACTION OF AROUND 60 TO 65%. 2) LEFT ATRIAL ENLARGEMENT. 3) LEFT VENTRICULAR HYPERTROPHY. - Pain most likely r/t Gallbladder 06/22 - resolved Code(s): R07.9 - CHEST PAIN, UNSPECIFIED (2) Cholecystitis Current Visit: Yes Status: Acute Assessment & Plan: - Open Mya yesterday by GS- complete report pending - Narcotic pain control - Abd. binder - MARCO A drain - IS 06/23 - POD #2 - pain controlled - Up in chair and walking on unit - Abd binder - MARCO A drain in place - wound culture + for e-coli - Cont Zosyn 06/24 - POD day #3 - increased abd pain - stool softener started - continue with activity Code(s): K81.9 - CHOLECYSTITIS, UNSPECIFIED (3) CAD (coronary artery disease) Current Visit: Yes Status: Acute Assessment & Plan: -Continue home meds Code(s): I25.10 - ATHSCL HEART DISEASE OF [place] CORONARY ARTERY W/O ANG PCTRS (4) Abdominal pain Current Visit: No Status: Acute Assessment & Plan: -US abdomen/CT concern for cholecystitis -HIDA 06/20 No gallbladder activity with and without morphine augmentation concerning for cholecystitis -Surgery consulted and plan is for surgery today 06/21 06/22 - Post op day #1 Open lap Mya - Pain management with oral and IV narcotic pain medication - Abd binder - KUB 06/22: IMPRESSION: 1. The stomach, small bowel, and colon gas patterns are all normal and there is no free air around the falciform ligament. 2. No evidence of bowel obstruction or perforation noted. 3. No definite radio opaque shadows that could be depicted along the anatomical course of kidneys, ureters and urinary bladder. 06/23 - POD #2 lap mya - pain has improved - pt sitting up and walking on unit. 06/24 - POD#3 - see lap mya info above 06/25 - POD#4 - eating well - + solid BM - plan is for d/c tomorrow Code(s): R10.9 - UNSPECIFIED ABDOMINAL PAIN (5) Chronic renal failure Current Visit: Yes Status: Acute Assessment & Plan: -Chronic, no acute issues, at baseline, will continue to monitor renal/lytes daily -Avoid nephrotoxic agents/NSAIDs (6) Diabetes mellitus Current Visit: Yes Status: Acute Assessment & Plan: -Controlled -A1c 05/14/23 at 6.1 -Accucheck AC/HS -Low dose SSI Code(s): E11.9 - TYPE 2 DIABETES MELLITUS WITHOUT COMPLICATIONS (7) Elevated liver enzymes Current Visit: Yes Status: Acute Assessment & Plan: 06/21 - Improved today AST within normal range, ALT 22 06/22 - improved - trend 06/23 - resolved Code(s): R74.8 - ABNORMAL LEVELS OF OTHER SERUM ENZYMES (8) GERD (gastroesophageal reflux disease) Current Visit: Yes Status: Acute Assessment & Plan: -Continue home meds, will add protonix IV 40 bid as well as carafate Code(s): K21.9 - GASTRO-ESOPHAGEAL REFLUX DISEASE WITHOUT ESOPHAGITIS (9) HLD (hyperlipidemia) Current Visit: Yes Status: Acute Assessment & Plan: -continue home med atorvastatin - Lipid panel 06/19- HDL 17 - Advised to improve diet Code(s): E78.5 - HYPERLIPIDEMIA, UNSPECIFIED (10) Essential hypertension Current Visit: No Status: Chronic Assessment & Plan: -Stable, continue home meds, hydralazine prn - Will add amlodipine if continues to be elevated Code(s): I10 - ESSENTIAL (PRIMARY) HYPERTENSION (11) Cough Current Visit: Yes Status: Acute Assessment & Plan: - mucinex - IS - Chest XR 06/23: Exaggerated broncho vascular markings redemonstrated. A suspected well-defined rounded shadow redemonstrated in the left mid zone would recommend CT scan chest if clinically indicated. - Chest CT 06/23: IMPRESSION: 1. Minimally cavitating calcified and soft tissue density nodular lesion in left lung field upper lobe with left hilar calcified lymph nodes and splenic calcifications. 2. Possible granulomatous disease cannot be excluded needs clinical correlation. 3. In the abdomen, mild pneumoperitoneum and a tubular object not corresponding to any structure were noted in the right upper quadrant ? displaced stent clinical correlation suggested. These findings were not seen on prior CT, clinical correlation was suggested. Splenic calcifications noted. Mild thickening at the gastric pylorus and its junction with duodenum noted, needs clinical correlation, this could be site of perforation and source of pneumoperitoneum, correlation to prior data and dedicated workup recommended. - Pt aware of lung lesion and will f/u OP - Surgery reviewed chest CT and no changes at this time. 06/24 - Cough improved Code(s): R05.9 - COUGH, UNSPECIFIED (12) Hypokalemia Current Visit: Yes Status: Acute Assessment & Plan: 06/23- 3.4- replaced 06/24- 3.6 06/25- 3.4- replaced - placed on potassium replacement protocol DC plan: tomorrow Code status: Full VTE: Lovenox Code(s): E87.6 - HYPOKALEMIA
[2023-06-26 04:32] LABS: Hematocrit 29.6 % (42-50); Hemoglobin 9.5 g/dL (12.5-18.0); Mean Cell Volume 85.3 fL (78-100); Mean Corpuscular Hemoglobin 27.4 pg (26-32); Mean Corpuscular Hgb Concent. 32.1 g/dL (32-36); Mean Platelet Volume 8.5 fL (7.5-11.0); Platelet Count 324 x10^3/uL (150-450); Red Blood Count 3.47 x10^6/uL (4.1-5.6); Red Cell Distribution Width 13.2 % (11.5-14.0); White Blood Count 5.8 x10^3/uL (4.0-10.5)
[2023-06-26 05:00] LABS: MAGNESIUM 1.8 mg/dL (1.6-2.3)
[2023-06-26 05:01] LABS: ALBUMIN 2.7 g/dL (3.5-5.0); ALKALINE PHOSPHATASE 59 U/L (38-126); ANION GAP 7.7 MEQ/L (5-15); BLOOD UREA NITROGEN 6 mg/dL (9-20); CHLORIDE 106 mmol/L (98-107); Calcium 8.1 mg/dL (8.4-10.2); Carbon Dioxide 30 mmol/L (22-30); EST GLOMERULAR FILTRATION RATE > 60.0 ML/MIN; Glucose 107 mg/dL (74-106); Potassium 3.4 mmol/L (3.5-5.1); SGOT/AST 15 U/L (17-59); SGPT/ALT 23 U/L (0-50); SODIUM 140 mmol/L (137-145); Total Protein 5.5 g/dL (6.3-8.2)
[2023-06-26] MEDS: PIPERACILLIN/TAZOBACTAM 3.375 GM in Sodium Chloride 100ML MINI-BAG PLUS 100 ML IV SCH ×3 (06:11)
[2023-06-26] MEDS: Carafate 1 GM PO SCH ×4 (07:41→22:06)
[2023-06-26] MEDS ORDERED: Klor Con PO ONE (07:43)
[2023-06-26] MEDS: NEURONTIN PO SCH ×2 (08:32→22:05)
[2023-06-26] MEDS: PROZAC 10 MG PO SCH (08:32)
[2023-06-26] MEDS: ENOXAPARIN SODIUM SQ SCH (08:32)
[2023-06-26] MEDS: PROTONIX 40 MG IV IV SCH ×2 (08:32→22:05)
[2023-06-26] MEDS: Ecotrin 325 MG PO SCH (08:33)
[2023-06-26] MEDS: Mucinex 600MG ER Tabs PO SCH ×2 (08:33→22:05)
[2023-06-26] MEDS: NORVASC 5 MG PO SCH (08:33)
[2023-06-26] MEDS: BUSPAR 5 MG PO SCH ×2 (08:33→22:06)
[2023-06-26] MEDS: ZOCOR 20MG PO SCH (08:33)
[2023-06-26] MEDS: COREG 12.5 MG PO SCH ×2 (08:33→22:05)
--- NOTE | 2023-06-26 08:42 | OP ---
SURGERY DATE/TIME: 06/21/2023 6233 PREOPERATIVE DIAGNOSIS: Acute cholecystitis. POSTOPERATIVE DIAGNOSES: Acute cholecystitis with colon involvement. PROCEDURES: 1) Laparoscopy. 2) Exploratory laparotomy. 3) Right colectomy. 4) Partial cholecystectomy. SURGEON: Preet Andino M.D. MILITARY LOGISTICS SPECIALIST: Amena Andino M.D. ANESTHESIA: General. ESTIMATED BLOOD LOSS: Please refer to anesthesia. Probably a few 100 blood loss. CONDITION: Patient condition stable. COMPLICATIONS: None. SPECIMENS: 1) Gallbladder. 2) Right colectomy. HISTORY: The patient is a 58-year-old male who presents with acute cholecystitis, had symptoms of right upper quadrant abdominal pain. Imaging showing thickening on ultrasound. HIDA scan showing nonfilling of the gallbladder. He is tender in the upper abdomen on exam. Discussion with the patient risks of infection, bleeding, injury to nearby structure, hernia, failure to resolve symptoms and the patient elected to proceed with surgery. FINDINGS: Severe acute cholecystitis with aniya pus in the gallbladder as well as transverse colon plastered to the gallbladder initially concerning for fistula but there is no discrete fistula. The colon is compromised by the abscess cavity and right colectomy performed and a partial cholecystectomy is performed and is left open with a drain in place. DESCRIPTION OF PROCEDURE: The patient was brought to the operating room. General anesthesia induced. Routinely positioned, prepped and draped. Time out performed. He received preoperative antibiotic. A 5 mm Optiview trocar placed in left upper quadrant. Pneumoperitoneum established, An 11 mm umbilical trocar placed, two additional 5 mm trocar sites in the right upper quadrant. Abdomen surveyed. The patient was positioned. He was somewhat intolerant of positioning that he did require reduction in pneumoperitoneum at one point and eventually did tolerate that adequately and then the gallbladder was able to be dissected down. There was just a sliver of what appeared to be the gallbladder visible. There is no omental adhesion to the gallbladder. Taken down what ended up being the transverse colon that was densely adherent to the fundus of the gallbladder and a sliver of gallbladder was plastered with the colon anteriorly. A little bit of dissection is able to be started medially. However with continued dissection there was shown to be a serosal tear in the transverse colon that was plastered to the gallbladder but there is no discrete plane visible on that. At that point Dr. Amena Andino did join the case and we did convert to open with a generous midline incision and the abdomen is then surveyed. The rest of the abdomen was satisfactory. This was a very focal process that the transverse colon is plastered to it and the duodenum is also adherent in that area. Dissection is started and eventually a plane is made between the transverse colon and gallbladder but it is readily apparent that the colon is not able to be from the gallbladder and had adequate colon. Eventually it is dissected sharply off the gallbladder and there is about a quarter sized black area of colon that is very concerning for impending perforation. There is a small serosal tear otherwise expected due to the dense adhesions but decided to resect that due to the questionable viability. The gallbladder had been entered during that process and then dissection down towards the cystic duct is started. However, it is just inflammatory mass there with no clearly discernable anatomy. It was decided to proceed with a partial cholecystectomy so the gallbladder anterior wall was resected and the posterior cauterized though the gallbladder is partially necrotic, purulent and just terrible. At that point the right colectomy is performed. The retroperitoneum was resected and then adequate revision of the terminal ileum with a blue load MARIAH stapler, colon divided with green load MARIAH stapler and [id number] functional end-to-end anastomosis is created and then the mesentery defect was closed with running 3-0 PDS suture. The gallbladder fossa is hemostatic at that point and a Surgicel is left in that and then a 10 mm drain is placed in the gallbladder fossa remnant and then brought out laterally. NG tube was confirmed in the stomach. The abdomen was then closed with running looped 0 PDS suture and the subcutaneous is irrigated out. The skin was closed loosely with laura and aniyah were placed between and then the port incisions were closed with laura. The 11 trocar site that was paramedian at the umbilicus closed from the inside with 0 PDS suture prior to closure. All counts were correct. The patient tolerated the procedure well. Extubated and taken to recovery in stable condition.
--- NOTE | 2023-06-26 09:36 | PCM.NOTE ---
Date and Time: 06/26/23929 Subjective Assessment: 06/21/23 is a 58 year old male with a pmhx of COPD,GERD, HTN, HLD, PAD, CKD, pancreatitis, and DM. He presented to the ED on 06/18/23 and was admitted for observation of atypical substernal pain that is worse sitting up and is pleuritic. EKG and troponin negative. DDimer only slightly elevated, no CTA needed. Patient endorsed mid epigastric pain, that has improved from previous days, notices it mostly after consuming a meal. He rates the pain 0/10 on a numerical pain scale, describes it as dull/squeezing. Labs discussed with patient, mostly unremarkable with the exception of elevation in LFT, US abdomen and CT showing chronic cholecystitis. HIDA scan confirmed the need for gallbladder removal. Surgery consulted, and the plan is for gallbladder removal today. Cardiac-barrett, plan for follow up with Dr. Paiz this Saturday for further cardiac workup. Echo reviewed. Patient endorsing improvement of abdominal pain, no chest pain today. Discussed labs, LFT improved from yesterday, HIDA scan results, and surgery plan. Denies fever,cough, SOB, CP, ELIZABETH, dizziness, N/V/D. 06/22/23 Pt lying in the bed. He is having quite a bit of pain today with any movement. He has been yelling out in pain. He has an abdominal binder on as he had an open lap Mya last night with GS. Report is currently unavailable but there seems to have been some involvement with his intestines and a liver biopsy done per his . KUB completed and showed no new concerns. He did receive Cefoxitin and Zosyn in the OR. Will continue Zosyn for antibiotic coverage and try to get his pain under control as well. He denies any other concerns at this time other than abd. pain. 06/23/23 Pt sitting up in chair today. Plan is to get up and walk. His pain has improved. He now has a cough with clear sputum production. Chest XR and Mucinex ordered. Wound culture came back positive for e-coli. Stopped Zosyn. Continue Cefoxitin. K+ 3.4 today- replaced. Pt did have a temp overnight of 99.0 F. He is otherwise doing well. Denies CP, SOB, N/V/D. Correction: after further discussion with nursing staff it shows that cefoxitin is an active medication but pt is not receiving this. It was not stopped on DEC after surgery. Zosyn continued. Will D/C cefoxitin from DEC. Surgery reviewed CT results and were non-concerned with findings. 06/24/23 Pt resting in bed. He feels he may have done too much yesterday with walking and sitting up in the chair as he has increased abd. pain today. He continues to wear the abd. binder and has the TERESA drain. No fever overnight, denies CP, SOB, N/V. He has not had a BM yet and stool softener started today. Phos low and replaced. 06/25/23 Pt sitting up in the chair today. He is feeling better today. He was able to have a large BM today and since then abd. pain has improved. Plan is for d/c tomorrow with continued improvement and eating today. No fever overnight, denies CP, SOB, N/V/D. 06/26/23 Pt again sitting up in the chair today. He has explains he has been passing gas more, continues to have regular BM'S, and decreased abd. pain. He is walking well in the hallways with assistance. He was taught yesterday how to empty TERESA drain and able to do this himself. Case management has set up home health care. Sister is unable to help with a ride home until tomorrow. He feels he will be ready to go home then. Will d/c antibiotics and morphine. No fever overnight, denies CP, SOB, N/V/D. - Review of Systems Constitutional: No Fever, No Chills Eyes: No Symptoms Ears, Nose, & Throat: No Symptoms Respiratory: No Cough, No Short Of Breath Cardiac: No Chest Pain, No Edema, No Syncope Abdominal/Gastrointestinal: No Abdominal Pain, No Nausea, No Vomiting, No Diarrhea Genitourinary Symptoms: No Dysuria Musculoskeletal: No Back Pain, No Neck Pain Skin: Other (midline incision coverered with dressing and abd binder, teresa drain in place. ), No Rash Neurological: No Dizziness, No Focal Weakness, No Sensory Changes Psychological: No Symptoms Endocrine: No Symptoms Hematologic/Lymphatic: No Symptoms Immunological/Allergic: No Symptoms Objective Exam General Appearance: no apparent distress, alert Neurologic Exam: alert, oriented x 3, cooperative, normal mood/affect, nml cerebellar function, sensation nml, No motor deficits Skin Exam: normal color, warm, dry Wound Assessment: Skin/Wound Assessment Wound/Incision Assessment Start: 06/22/23 13:37 Text: Status: Active Freq: Q6H Protocol: Document 06/26/23 02:00 MP (Rec: 06/26/23 02:41 MP [id number]) Wound/Incision Assessment Anterior Medial Abdomen Wound Assessment Shift Assessment Wound Type Incision Dressing Status Dry & Intact Drainage Amount Minimal Drainage Description Brown Drainage Odor None/Absent Comment OLD DRAINAGE NOTED TO ISLAND DRESSING, 3 PUNCUTRE SITES NOTED, ABDOMINAL BINDER ALSO ON Anterior Medial Drain Type TERESA drain Drainage Description Brown Odor None/Absent Drainage Amount (ml) 90 Comment Dressing changed at TERESA site Wound Photo Photo Taken No Eye Exam: PERRL, EOMI, eyes nml inspection Ears, Nose, Throat Exam: normal ENT inspection, pharynx normal, moist mucous membranes Neck Exam: normal inspection, non-tender, supple, full range of motion Respiratory Exam: normal breath sounds, lungs clear, No respiratory distress Cardiovascular Exam: regular rate/rhythm, normal heart sounds Gastrointestinal/Abdomen Exam: soft, other (midline incision coverered with dressing and abd binder, teresa drain in place with yellow drainge.), No tenderness, No mass Extremity Exam: normal inspection, normal range of motion Back Exam: normal inspection, normal range of motion, No CVA tenderness, No vertebral tenderness Male Genitalia Exam: deferred Rectal Exam: deferred OBJECTIVE DATA Vital Signs: Vital Signs - 24 hr Temp Pulse Resp BP BP Pulse Ox 06/26/23 06:48 97.4 F 65 18 179/84 99 06/26/23 05:38 95 06/26/23 04:00 98.6 F 65 20 177/78 96 06/26/23 00:00 98.3 F 71 18 184/79 95 06/25/23 20:00 18 06/25/23 19:51 95 06/25/23 19:47 98.2 F 68 18 169/74 97 06/25/23 16:08 98.2 F 65 16 178/78 95 06/25/23 16:00 16 06/25/23 12:00 16 06/25/23 11:51 98.1 F 69 16 127/81 96 06/25/23 10:25 96.8 F 72 15 130/62 97 Pain Assessment - Last Documented Pain Intensity 5 Pain Scale Used 0-10 Pain Scale Intake and Output: Intake & Output 06/23/23 06/24/23 06/25/23 06/26/23 11:59 11:59 11:59 11:59 Intake Total 3899 1736 3201 2160 Output Total 3420 5940 1775 160 Balance 479 -5091 1426 2000 Weight 115.2 kg Lab Results: Lab Results-Last 24 Hours 06/21/23 06/25/23 06/26/23 Range/Units 15:20 16:10 04:20 WBC (4.0-10.5) x10^3/uL RBC (4.1-5.6) x10^6/uL Hgb (12.5-18.0) g/dL Hct (42-50) % MCV (78-100) fL MCH (26-32) pg MCHC (32-36) g/dL RDW (11.5-14.0) % Plt Count (150-450) x10^3/uL MPV (7.5-11.0) fL Sodium (137-145) mmol/L Potassium 3.7 (3.5-5.1) mmol/L Chloride (98-107) mmol/L Carbon Dioxide (22-30) mmol/L Anion Gap (5-15) MEQ/L BUN (9-20) mg/dL Creatinine (0.66-1.25) mg/dL Estimated GFR ML/MIN Glucose (74-106) mg/dL Calcium (8.4-10.2) mg/dL Phosphorus (2.5-4.5) mg/dL Magnesium (1.6-2.3) mg/dL Total Bilirubin (0.2-1.3) mg/dL AST (17-59) U/L ALT (0-50) U/L Alkaline Phosphatase (38-126) U/L Serum Total Protein (6.3-8.2) g/dL Albumin (3.5-5.0) g/dL 25-OH Vitamin D Total 19.0 L (30-100) ng/mL Surg PTH Specimen SEE COMMENTS 06/26/23 06/26/23 06/26/23 Range/Units 04:27 04:27 04:27 WBC 5.8 (4.0-10.5) x10^3/uL RBC 3.47 L (4.1-5.6) x10^6/uL Hgb 9.5 L (12.5-18.0) g/dL Hct 29.6 L (42-50) % MCV 85.3 (78-100) fL MCH 27.4 (26-32) pg MCHC 32.1 (32-36) g/dL RDW 13.2 (11.5-14.0) % Plt Count 324 (150-450) x10^3/uL MPV 8.5 (7.5-11.0) fL Sodium 140 (137-145) mmol/L Potassium 3.4 L (3.5-5.1) mmol/L Chloride 106 (98-107) mmol/L Carbon Dioxide 30 (22-30) mmol/L Anion Gap 7.7 (5-15) MEQ/L BUN 6 L (9-20) mg/dL Creatinine 0.70 (0.66-1.25) mg/dL Estimated GFR > 60.0 ML/MIN Glucose 107 H (74-106) mg/dL Calcium 8.1 L (8.4-10.2) mg/dL Phosphorus 3.0 (2.5-4.5) mg/dL Magnesium 1.8 (1.6-2.3) mg/dL Total Bilirubin 0.30 (0.2-1.3) mg/dL AST 15 L (17-59) U/L ALT 23 (0-50) U/L Alkaline Phosphatase 59 (38-126) U/L Serum Total Protein 5.5 L (6.3-8.2) g/dL Albumin 2.7 L (3.5-5.0) g/dL 25-OH Vitamin D Total (30-100) ng/mL Surg PTH Specimen Multi-Disciplinary Progress Notes: Multi-Disciplinary Progress Notes 06/26/23 09:13 Case Management Note by Cathi Dubose NEW REFERRAL PACKED FAXED TO [facility] PER THEIR REQUEST AT THIS TIME. PATIENT CONTINUES TO DENY ANY NEW NEEDS. [facility] HAS BEEN IN. HE HAS BEEN EMPTYING HIS TERESA DRAIN HERE. HE FEELS HE WILL BE ABLE TO FOR HIMSELF AT HOME IN BETWEEN [facility] VISITS. HE WAS AGAIN OFFERED A REHAB STAY BUT DECLINED. "ABSOLUTELY NOT". HE PLANS TO RETURN HOME TO HIS F AT TIME OF DC Initialized on 06/26/23 09:13 - END OF NOTE 06/25/23 15:15 Case Management Note by Cathi Dubose NO CHANGE IN DC PLANS AT THIS TIME. ANTICIPATE DC HOME WITH [facility] TOMORROW Initialized on 06/25/23 15:15 - END OF NOTE Assessment/Plan (1) Cholecystitis Current Visit: Yes Status: Acute Assessment & Plan: - Open Mya yesterday by GS- complete report pending - Narcotic pain control - Abd. binder - TERESA drain - IS 9 - POD #2 - pain controlled - Up in chair and walking on unit - Abd binder - TERESA drain in place - wound culture + for e-coli - Cont Zosyn 06/24 - POD day #3 - increased abd pain - stool softener started - continue with activity 06/25 - POD #4 - eating well, regular bm's, no n/v/d - D/C antibiotics - D/c morphine - TERESA drain now draining yellow output Code(s): K81.9 - CHOLECYSTITIS, UNSPECIFIED (2) Chest pain Current Visit: Yes Status: Acute Assessment & Plan: -Reviewed Stress performed 01/20/20: IMPRESSION: 1) SINUS RHYTHM. 2) PVCS ESPECIALLY WITH TACHYARRHYMIA AND TRIGGERED EVENT. -Patient unsure if he has had any recent imaging -2 gm Na diet -consult cardiology -CXR reviewed as stated in HPI -start ASA 325mg qd and NTG sublingual PRN -serial troponin and ECG -Echo in am -CBC, CMP, DDimer, Mg, Phos, lipid panel, HgbA1c in am -continue appropriate baseline home medications -DVT prophylaxis-Lovenox 40 mg SQ daily 06/19: -Echo pending -Cardiac workup unremarkable. Plan for follow up with Dr. Paiz Saturday for further evaluation 06/20: -resolved 06/21 - Echo: Completed 06/19 IMPRESSION: 1) NO REGIONAL WALL MOTION ABNORMALITY. ESTIMATED GLOBAL LEFT VENTRICULAR EJECTION FRACTION OF AROUND 60 TO 65%. 2) LEFT ATRIAL ENLARGEMENT. 3) LEFT VENTRICULAR HYPERTROPHY. - Pain most likely r/t Gallbladder 06/22 - resolved Code(s): R07.9 - CHEST PAIN, UNSPECIFIED (3) CAD (coronary artery disease) Current Visit: Yes Status: Acute Assessment & Plan: -Continue home meds Code(s): I25.10 - ATHSCL HEART DISEASE OF [place] CORONARY ARTERY W/O ANG PCTRS (4) Abdominal pain Current Visit: No Status: Acute Assessment & Plan: -US abdomen/CT concern for cholecystitis -HIDA 06/20 No gallbladder activity with and without morphine augmentation concerning for cholecystitis -Surgery consulted and plan is for surgery today 06/21 06/22 - Post op day #1 Open lap Mya - Pain management with oral and IV narcotic pain medication - Abd binder - KUB 06/22: IMPRESSION: 1. The stomach, small bowel, and colon gas patterns are all normal and there is no free air around the falciform ligament. 2. No evidence of bowel obstruction or perforation noted. 3. No definite radio opaque shadows that could be depicted along the anatomical course of kidneys, ureters and urinary bladder. 06/23 - POD #2 lap mya - pain has improved - pt sitting up and walking on unit. 06/24 - POD#3 - see lap mya info above 06/25 - POD#4 - eating well - + solid BM - plan is for d/c tomorrow Code(s): R10.9 - UNSPECIFIED ABDOMINAL PAIN (5) Chronic renal failure Current Visit: Yes Status: Acute Assessment & Plan: -Chronic, no acute issues, at baseline, will continue to monitor renal/lytes daily -Avoid nephrotoxic agents/NSAIDs (6) Diabetes mellitus Current Visit: Yes Status: Acute Assessment & Plan: -Controlled -A1c 05/14/23 at 6.1 -Accucheck AC/HS -Low dose SSI Code(s): E11.9 - TYPE 2 DIABETES MELLITUS WITHOUT COMPLICATIONS (7) Elevated liver enzymes Current Visit: Yes Status: Acute Assessment & Plan: 06/21 - Improved today AST within normal range, ALT 22 06/22 - improved - trend 06/23 - resolved Code(s): R74.8 - ABNORMAL LEVELS OF OTHER SERUM ENZYMES (8) GERD (gastroesophageal reflux disease) Current Visit: Yes Status: Acute Assessment & Plan: -Continue home meds, will add protonix IV 40 bid as well as carafate Code(s): K21.9 - GASTRO-ESOPHAGEAL REFLUX DISEASE WITHOUT ESOPHAGITIS (9) HLD (hyperlipidemia) Current Visit: Yes Status: Acute Assessment & Plan: -continue home med atorvastatin - Lipid panel 06/19- HDL 17 - Advised to improve diet Code(s): E78.5 - HYPERLIPIDEMIA, UNSPECIFIED (10) Essential hypertension Current Visit: No Status: Chronic Assessment & Plan: -Stable, continue home meds, hydralazine prn - Will add amlodipine if continues to be elevated 06/26 - BP 179/84- added amlodipine 5mg daily - will need home rx at dc Code(s): I10 - ESSENTIAL (PRIMARY) HYPERTENSION (11) Cough Current Visit: Yes Status: Acute Assessment & Plan: - mucinex - IS - Chest XR 06/23: Exaggerated broncho vascular markings redemonstrated. A suspected well-defined rounded shadow redemonstrated in the left mid zone would recommend CT scan chest if clinically indicated. - Chest CT 06/23: IMPRESSION: 1. Minimally cavitating calcified and soft tissue density nodular lesion in left lung field upper lobe with left hilar calcified lymph nodes and splenic calcifications. 2. Possible granulomatous disease cannot be excluded needs clinical correlation. 3. In the abdomen, mild pneumoperitoneum and a tubular object not corresponding to any structure were noted in the right upper quadrant ? displaced stent clinical correlation suggested. These findings were not seen on prior CT, clinical correlation was suggested. Splenic calcifications noted. Mild thickening at the gastric pylorus and its junction with duodenum noted, needs clinical correlation, this could be site of perforation and source of pneumoperitoneum, correlation to prior data and dedicated workup recommended. - Pt aware of lung lesion and will f/u OP - Surgery reviewed chest CT and no changes at this time. 06/24 - Cough improved Code(s): R05.9 - COUGH, UNSPECIFIED (12) Hypokalemia Current Visit: Yes Status: Acute Assessment & Plan: 06/23- 3.4- replaced 06/24- 3.6 06/25- 3.4- replaced - placed on potassium replacement protocol 06/26 - K+ 3.4 replaced - will need to send home with potassium rx Code(s): E87.6 - HYPOKALEMIA (13) Vitamin D deficiency Current Visit: Yes Status: Acute Assessment & Plan: -Vit D 19 - vit D 1,00 units daily started - recheck in 6-8 weeks - will need RX at D/C DC plan: tomorrow Code status: Full VTE: Lovenox Code(s): E55.9 - VITAMIN D DEFICIENCY, UNSPECIFIED
[2023-06-26] MEDS: VITAMIN D PO SCH (11:32)
[2023-06-26] MEDS: NORCO 5/325 MG PO PRN (19:46)
[2023-06-27 04:46] LABS: Hematocrit 31.5 % (42-50); Hemoglobin 10.2 g/dL (12.5-18.0); Mean Cell Volume 84.9 fL (78-100); Mean Corpuscular Hemoglobin 27.5 pg (26-32); Mean Corpuscular Hgb Concent. 32.4 g/dL (32-36); Mean Platelet Volume 9.3 fL (7.5-11.0); Platelet Count 365 x10^3/uL (150-450); Red Blood Count 3.71 x10^6/uL (4.1-5.6); Red Cell Distribution Width 13.5 % (11.5-14.0); White Blood Count 5.8 x10^3/uL (4.0-10.5)
[2023-06-27 05:18] LABS: ALBUMIN 2.8 g/dL (3.5-5.0); ALKALINE PHOSPHATASE 69 U/L (38-126); ANION GAP 11.2 MEQ/L (5-15); BLOOD UREA NITROGEN 12 mg/dL (9-20); CHLORIDE 106 mmol/L (98-107); Calcium 8.1 mg/dL (8.4-10.2); Carbon Dioxide 25 mmol/L (22-30); Creatinine 1 0.77 mg/dL (0.66-1.25); EST GLOMERULAR FILTRATION RATE > 60.0 ML/MIN; Glucose 128 mg/dL (74-106); Potassium 3.4 mmol/L (3.5-5.1); SGOT/AST 22 U/L (17-59); SGPT/ALT 24 U/L (0-50); SODIUM 138 mmol/L (137-145); Total Protein 5.4 g/dL (6.3-8.2)
[2023-06-27 07:28] VITALS: PULSE 64; RESP 16; TEMP 96.7; O2SAT 98
[2023-06-27] MEDS: Carafate 1 GM PO SCH ×2 (07:36→11:25)
[2023-06-27] MEDS ORDERED: Klor Con PO ONE (07:40)
[2023-06-27] MEDS: COREG 12.5 MG PO SCH (09:12)
[2023-06-27] MEDS: ZOCOR 20MG PO SCH (09:12)
[2023-06-27] MEDS: VITAMIN D PO SCH (09:12)
[2023-06-27] MEDS: Ecotrin 325 MG PO SCH (09:12)
[2023-06-27] MEDS: BUSPAR 5 MG PO SCH (09:12)
[2023-06-27] MEDS: NORVASC 5 MG PO SCH (09:12)
[2023-06-27] MEDS: NEURONTIN PO SCH (09:12)
[2023-06-27] MEDS: ENOXAPARIN SODIUM SQ SCH (09:12)
[2023-06-27] MEDS: Mucinex 600MG ER Tabs PO SCH (09:12)
[2023-06-27] MEDS: PROTONIX 40 MG IV IV SCH (09:12)
[2023-06-27] MEDS: PROZAC 10 MG PO SCH (09:50)
[2023-06-27 12:02] VITALS: BP 137/79
--- NOTE | 2023-06-27 12:03 | PCM.DS ---
Discharge Summary Date of Admission: 06/21/23 20:00 Date of Discharge: 06/27/23 Admitting Physician: CARMEN SPRAGUE MD Consults: Consults on Case 06/18/23 18:34 Consult Cardiology ROUTINE 06/19/23 13:41 Consult Surgery ROUTINE Primary Care Provider: BROOKLYN FRITZ Allergies Allergies No Known Drug Allergies Allergy (Verified 06/18/23 15:11) Hospital Summary - Hospital Course Hospital Course: 06/21/23 is a 58 year old male with a pmhx of COPD,GERD, HTN, HLD, PAD, CKD, pancreatitis, and DM. He presented to the ED on 06/18/23 and was admitted for observation of atypical substernal pain that is worse sitting up and is pleuritic. EKG and troponin negative. DDimer only slightly elevated, no CTA needed. Patient endorsed mid epigastric pain, that has improved from previous days, notices it mostly after consuming a meal. He rates the pain 0/10 on a numerical pain scale, describes it as dull/squeezing. Labs discussed with patient, mostly unremarkable with the exception of elevation in LFT, US abdomen and CT showing chronic cholecystitis. HIDA scan confirmed the need for gall bladder removal. Surgery consulted, and the plan is for gallbladder removal today. Cardiac-barrett, plan for follow up with Dr. Paiz this Saturday for further cardiac workup. Echo reviewed. Patient endorsing improvement of abdominal pain, no chest pain today. Discussed labs, LFT improved from yesterday, HIDA scan results, and surgery plan. Denies fever,cough, SOB, CP, ELIZABETH, dizziness, N/V/D. 06/22/23 Pt lying in the bed. He is having quite a bit of pain today with any movement. He has been yelling out in pain. He has an abdominal binder on as he had an open lap Mya last night with GS. Report is currently unavailable but there seems to have been some involvement with his intestines and a liver biopsy done per his . KUB completed and showed no new concerns. He did receive Cefoxitin and Zo syn in the OR. Will continue Zosyn for antibiotic coverage and try to get his pain under control as well. He denies any other concerns at this time other than abd. pain. 06/23/23 Pt sitting up in chair today. Plan is to get up and walk. His pain has improved. He now has a cough with clear sputum production. Chest XR and Mucinex ordered. Wound culture came back positive for e-coli. Stopped Zosyn. Continue Cefoxitin. K+ 3.4 today- replaced. Pt did have a temp overnight of 99.0 F. He is otherwise doing well. Denies CP, SOB, N/V/D. Correction: after further discussion with nursing staff it shows that cefoxitin is an active medication but pt is not receiving this. It was not stopped on DEC after surgery. Zosyn continued. Will D/C cefoxitin from DEC. Surgery reviewed CT results and were non-concerned with findings. 06/24/23 Pt resting in bed. He feels he may have done too much yesterday with walking and sitting up in the chair as he has increased abd. pain today. He continues to wear the abd. binder and has the MARCO A drain. No fever overnight, denies CP, SOB, N/V. He has not had a BM yet and stool softener started today. Phos low and replaced. 06/25/23 Pt sitting up in the chair today. He is feeling better today. He was able to have a large BM today and since then abd. pain has improved. Plan is for d/c tomorrow with continued improvement and eating today. No fever overnight, denies CP, SOB, N/V/D. 06/26/23 Pt again sitting up in the chair today. He has explains he has been passing gas more, continues to have regular BM'S, and decreased abd. pain. He is walking well in the hallways with assistance. He was taught yesterday how to empty MARCO A drain and able to do this himself. Case management has set up home health care. Sister is unable to help with a ride home until tomorrow. He feels he will be ready to go home then. Will d/c antibiotics and morphine. No fever overnight, denies CP, SOB, N/V/D. 06/27/23 Pt sitting up in the chair. He reports he is ready to go home today. Will confirm with GS if pt is to leave with MARCO A drain or D/C. BP is stable after morning meds. No fever overnight, denies CP, SOB, N/V/D. - Vitals & Intake/Output Vital Signs: Vital Signs Temperature 96.7 F 06/27/23 07:27 Pulse Rate 64 06/27/23 07:27 Respiratory Rate 16 06/27/23 08:00 Blood Pressure 182/77 06/27/23 07:27 O2 Sat by Pulse Oximetry 98 06/27/23 07:27 Intake & Output: Intake & Output 06/24/23 06/25/23 06/26/23 06/27/23 11:59 11:59 11:59 11:59 Intake Total 1736 3201 2160 720 Output Total 5940 1775 250 565 Balance -4204 1426 1910 155 Weight 115.2 kg - Lab Result Diagrams: 06/27/23 04:19 06/27/23 04:19 Lab Results-Last 24 Hrs: Lab Results-Last 24 Hours 06/27/23 06/27/23 06/27/23 Range/Units 00:44 04:19 04:19 WBC 5.8 (4.0-10.5) x10^3/uL RBC 3.71 L (4.1-5.6) x10^6/uL Hgb 10.2 L (12.5-18.0) g/dL Hct 31.5 L (42-50) % MCV 84.9 (78-100) fL MCH 27.5 (26-32) pg MCHC 32.4 (32-36) g/dL RDW 13.5 (11.5-14.0) % Plt Count 365 (150-450) x10^3/uL MPV 9.3 (7.5-11.0) fL Sodium (137-145) mmol/L Potassium (3.5-5.1) mmol/L Chloride (98-107) mmol/L Carbon Dioxide (22-30) mmol/L Anion Gap (5-15) MEQ/L BUN (9-20) mg/dL Creatinine (0.66-1.25) mg/dL Estimated GFR ML/MIN Glucose (74-106) mg/dL POC Glucometer 63 L (74 to 106) mg/dL Calcium (8.4-10.2) mg/dL Magnesium 1.9 (1.6-2.3) mg/dL Total Bilirubin (0.2-1.3) mg/dL AST (17-59) U/L ALT (0-50) U/L Alkaline Phosphatase (38-126) U/L Serum Total Protein (6.3-8.2) g/dL Albumin (3.5-5.0) g/dL 06/27/23 Range/Units 04:19 WBC (4.0-10.5) x10^3/uL RBC (4.1-5.6) x10^6/uL Hgb (12.5-18.0) g/dL Hct (42-50) % MCV (78-100) fL MCH (26-32) pg MCHC (32-36) g/dL RDW (11.5-14.0) % Plt Count (150-450) x10^3/uL MPV (7.5-11.0) fL Sodium 138 (137-145) mmol/L Potassium 3.4 L (3.5-5.1) mmol/L Chloride 106 (98-107) mmol/L Carbon Dioxide 25 (22-30) mmol/L Anion Gap 11.2 (5-15) MEQ/L BUN 12 (9-20) mg/dL Creatinine 0.77 (0.66-1.25) mg/dL Estimated GFR > 60.0 ML/MIN Glucose 128 H (74-106) mg/dL POC Glucometer (74 to 106) mg/dL Calcium 8.1 L (8.4-10.2) mg/dL Magnesium (1.6-2.3) mg/dL Total Bilirubin 0.20 (0.2-1.3) mg/dL AST 22 (17-59) U/L ALT 24 (0-50) U/L Alkaline Phosphatase 69 (38-126) U/L Serum Total Protein 5.4 L (6.3-8.2) g/dL Albumin 2.8 L (3.5-5.0) g/dL Micro Results-Entire Visit: Microbiology 06/21/23 20:48 Urine Culture - Final Urine, Catheterized NO GROWTH 06/21/23 17:20 Wound Culture - Final Gallbladder Escherichia Coli Accuchecks Date 06/27/23 Date 06/27/23 Date 06/26/23 Date 06/26/23 Date 06/26/23 Time 22:16 Time 16:37 Time 16:04 - Procedures and Test Procedures and Tests throughout Hospitalization: Therapy Orders & Screens 06/18/23 18:32 EKG REPEAT IN AM Comment: Diagnosis: Chest pain/ACS 06/22/23 04:29 Oxygen Nasal Cannula 2 lpm Comment: Diagnosis: Chest pain/ACS 06/22/23 10:20 Incentive Spirometry TID Comment: Diagnosis: open mya 06/21 Discharge Exam General Appearance: no apparent distress, alert Neurologic Exam: alert, oriented x 3, cooperative, normal mood/affect, nml cerebellar function, sensation nml, No motor deficits Eye Exam: PERRL, EOMI, eyes nml inspection Ears, Nose, Throat Exam: normal ENT inspection, pharynx normal, moist mucous membranes Neck Exam: normal inspection, non-tender, supple, full range of motion Respiratory Exam: normal breath sounds, lungs clear, No respiratory distress Cardiovascular Exam: regular rate/rhythm, normal heart sounds Gastrointestinal/Abdomen Exam: soft, No tenderness, No mass Male Genitalia Exam: deferred Rectal Exam: deferred Back Exam: normal inspection, normal range of motion, No CVA tenderness, No vertebral tenderness Extremity Exam: normal inspection, normal range of motion Skin Exam: normal color, warm, dry Wound Assessment: Skin/Wound Assessment Wound/Incision Assessment Start: 06/22/23 13:37 Text: Status: Active Freq: Q6H Protocol: Document 06/27/23 08:00 REBECA (Rec: 06/27/23 10:53 REBECA [id number]) Wound/Incision Assessment Anterior Medial Abdomen Wound Assessment Shift Assessment Wound Type Incision Dressing Status Dry & Intact,Changed Drainage Amount Minimal Drainage Description Serosanguineous Drainage Odor None/Absent General Appearance Well Approximated,[place] Intact,Clean/Dry Surrounding Tissue [place] Primary Dressing Tefla Comment drssing changed after shower Anterior Medial Drain Type MARCO A drain Drainage Description Yellow Wound Photo Photo Taken No Final Diagnosis/Problem List - Final Discharge Diagnosis/Problem (1) Cholecystitis Current Visit: Yes Status: Acute Code(s): K81.9 - CHOLECYSTITIS, UNSPECIFIED (2) Chest pain Current Visit: Yes Status: Acute Code(s): R07.9 - CHEST PAIN, UNSPECIFIED (3) CAD (coronary artery disease) Current Visit: Yes Status: Acute Code(s): I25.10 - ATHSCL HEART DISEASE OF [place] CORONARY ARTERY W/O ANG PCTRS (4) Abdominal pain Current Visit: No Status: Acute Code(s): R10.9 - UNSPECIFIED ABDOMINAL PAIN (5) Chronic renal failure Current Visit: Yes Status: Acute (6) Diabetes mellitus Current Visit: Yes Status: Acute Code(s): E11.9 - TYPE 2 DIABETES MELLITUS WITHOUT COMPLICATIONS (7) Elevated liver enzymes Current Visit: Yes Status: Acute Code(s): R74.8 - ABNORMAL LEVELS OF OTHER SERUM ENZYMES (8) GERD (gastroesophageal reflux disease) Current Visit: Yes Status: Acute Code(s): K21.9 - GASTRO-ESOPHAGEAL REFLUX DISEASE WITHOUT ESOPHAGITIS (9) HLD (hyperlipidemia) Current Visit: Yes Status: Acute Code(s): E78.5 - HYPERLIPIDEMIA, UNSPECIFIED (10) Essential hypertension Current Visit: No Status: Chronic Code(s): I10 - ESSENTIAL (PRIMARY) HYPERTENSION (11) Cough Current Visit: Yes Status: Acute Code(s): R05.9 - COUGH, UNSPECIFIED (12) Hypokalemia Current Visit: Yes Status: Acute Code(s): E87.6 - HYPOKALEMIA (13) Vitamin D deficiency Current Visit: Yes Status: Acute Assessment & Plan: (1) Cholecystitis Current Visit: Yes Status: Acute Assessment & Plan: - Open Mya yesterday by GS- complete report pending - Narcotic pain control - Abd. binder - MARCO A drain - IS 9 - POD #2 - pain controlled - Up in chair and walking on unit - Abd binder - MARCO A drain in place - wound culture + for e-coli - Cont Zosyn 06/24 - POD day #3 - increased abd pain - stool softener started - continue with activity 06/25 - POD #4 - eating well, regular bm's, no n/v/d - D/C antibiotics - D/c morphine - MARCO A drain now draining yellow output Code(s): K81.9 - CHOLECYSTITIS, UNSPECIFIED (2) Chest pain Current Visit: Yes Status: Acute Assessment & Plan: -Reviewed Stress performed 01/20/20: IMPRESSION: 1) SINUS RHYTHM. 2) PVCS ESPECIALLY WITH TACHYARRHYMIA AND TRIGGERED EVENT. -Patient unsure if he has had any recent imaging -2 gm Na diet -consult cardiology -CXR reviewed as stated in HPI -start ASA 325mg qd and NTG sublingual PRN -serial troponin and ECG -Echo in am -CBC, CMP, DDimer, Mg, Phos, lipid panel, HgbA1c in am -continue appropriate baseline home medications -DVT prophylaxis-Lovenox 40 mg SQ daily 06/19: -Echo pending -Cardiac workup unremarkable. Plan for follow up with Dr. Paiz Saturday for further evaluation 06/20: -resolved 06/21 - Echo: Completed 06/19 IMPRESSION: 1) NO REGIONAL WALL MOTION ABNORMALITY. ESTIMATED GLOBAL LEFT VENTRICULAR EJECTION FRACTION OF AROUND 60 TO 65%. 2) LEFT ATRIAL ENLARGEMENT. 3) LEFT VENTRICULAR HYPERTROPHY. - Pain most likely r/t Gallbladder 06/22 - resolved Code(s): R07.9 - CHEST PAIN, UNSPECIFIED (3) CAD (coronary artery disease) Current Visit: Yes Status: Acute Assessment & Plan: -Continue home meds Code(s): I25.10 - ATHSCL HEART DISEASE OF [place] CORONARY ARTERY W/O ANG PCTRS (4) Abdominal pain Current Visit: No Status: Acute Assessment & Plan: -US abdomen/CT concern for cholecystitis -HIDA 06/20 No gallbladder activity with and without morphine augmentation concerning for cholecystitis -Surgery consulted and plan is for surgery today 06/21 06/22 - Post op day #1 Open lap Mya - Pain management with oral and IV narcotic pain medication - Abd binder - KUB 06/22: IMPRESSION: 1. The stomach, small bowel, and colon gas patterns are all normal and there is no free air around the falciform ligament. 2. No evidence of bowel obstruction or perforation noted. 3. No definite radio opaque shadows that could be depicted along the anatomical course of kidneys, ureters and urinary bladder. 06/23 - POD #2 lap mya - pain has improved - pt sitting up and walking on unit. 06/24 - POD#3 - see lap mya info above 06/25 - POD#4 - eating well - + solid BM - plan is for d/c tomorrow Code(s): R10.9 - UNSPECIFIED ABDOMINAL PAIN (5) Chronic renal failure Current Visit: Yes Status: Acute Assessment & Plan: -Chronic, no acute issues, at baseline, will continue to monitor renal/lytes daily -Avoid nephrotoxic agents/NSAIDs (6) Diabetes mellitus Current Visit: Yes Status: Acute Assessment & Plan: -Controlled -A1c 05/14/23 at 6.1 -Accucheck AC/HS -Low dose SSI Code(s): E11.9 - TYPE 2 DIABETES MELLITUS WITHOUT COMPLICATIONS (7) Elevated liver enzymes Current Visit: Yes Status: Acute Assessment & Plan: 06/21 - Improved today AST within normal range, ALT 22 06/22 - improved - trend 06/23 - resolved Code(s): R74.8 - ABNORMAL LEVELS OF OTHER SERUM ENZYMES (8) GERD (gastroesophageal reflux disease) Current Visit: Yes Status: Acute Assessment & Plan: -Continue home meds, will add protonix IV 40 bid as well as carafate Code(s): K21.9 - GASTRO-ESOPHAGEAL REFLUX DISEASE WITHOUT ESOPHAGITIS (9) HLD (hyperlipidemia) Current Visit: Yes Status: Acute Assessment & Plan: -continue home med atorvastatin - Lipid panel 06/19- HDL 17 - Advised to improve diet Code(s): E78.5 - HYPERLIPIDEMIA, UNSPECIFIED (10) Essential hypertension Current Visit: No Status: Chronic Assessment & Plan: -Stable, continue home meds, hydralazine prn - Will add amlodipine if continues to be elevated 06/26 - BP 179/84- added amlodipine 5mg daily - will need home rx at dc Code(s): I10 - ESSENTIAL (PRIMARY) HYPERTENSION (11) Cough Current Visit: Yes Status: Acute Assessment & Plan: - mucinex - IS - Chest XR 06/23: Exaggerated broncho vascular markings redemonstrated. A suspected well-defined rounded shadow redemonstrated in the left mid zone would recommend CT scan chest if clinically indicated. - Chest CT 06/23: IMPRESSION: 1. Minimally cavitating calcified and soft tissue density nodular lesion in left lung field upper lobe with left hilar calcified lymph nodes and splenic calcifications. 2. Possible granulomatous disease cannot be excluded needs clinical correlation. 3. In the abdomen, mild pneumoperitoneum and a tubular object not corresponding to any structure were noted in the right upper quadrant ? displaced stent clinical correlation suggested. These findings were not seen on prior CT, clinical correlation was suggested. Splenic calcifications noted. Mild thickening at the gastric pylorus and its junction with duodenum noted, needs clinical correlation, this could be site of perforation and source of pneumoperitoneum, correlation to prior data and dedicated workup recommended. - Pt aware of lung lesion and will f/u OP - Surgery reviewed chest CT and no changes at this time. 06/24 - Cough improved Code(s): R05.9 - COUGH, UNSPECIFIED (12) Hypokalemia Current Visit: Yes Status: Acute Assessment & Plan: 06/23- 3.4- replaced 06/24- 3.6 06/25- 3.4- replaced - placed on potassium replacement protocol 06/26 - K+ 3.4 replaced - will need to send home with potassium rx 06/27 - K+ 3.4 replaced Code(s): E87.6 - HYPOKALEMIA (13) Vitamin D deficiency Current Visit: Yes Status: Acute Assessment & Plan: -Vit D - vit D 1,00 units daily started - recheck in 6-8 weeks - will need RX at D/C Code(s): E55.9 - VITAMIN D DEFICIENCY, UNSPECIFIED - Discharge Discharge Date: 06/27/23 Disposition: Home, Self-Care Condition: Stable Prescriptions: New Hydrocodone/Acetaminophen [Hydrocodone-Acetamin 7.5-325] 1 each PO Q6H #20 tablet MDD 4 Docusate Sodium 100 mg [Docusate Sodium 100 MG] 100 mg PO BIDPRN PRN 30 Days #60 cap PRN Reason: Constipation Amlodipine Besylate 5 mg [Norvasc 5 mg] 5 mg PO QAM 30 Days #30 tablet Ergocalciferol (Vitamin D2) [Vitamin D2] 50,000 unit PO Q7D 30 Days #30 Continue Metformin HCl 1000 mg [Glucophage 1000 MG] 1,000 mg PO BID Nitroglycerin [Nitrostat] 0.4 mg SL Q5MIN PRN MR X 3 PRN PRN Reason: Chest Pain Gabapentin [Neurontin] 600 mg PO BID Rosuvastatin Calcium [Crestor] 40 mg PO DAILY Buspirone HCl 5 mg [Buspar 5 mg] 5 mg PO BID Fluoxetine HCl [Prozac] 10 mg PO DAILY PANTOPRAZOLE 40 mg Tablet [Protonix 40MG Tablet] 40 mg PO DAILY Semaglutide [Ozempic] 2 mg SQ WEEKLY Insulin Lispro [Humalog Kwikpen U-100] 0 unit SQ UD carvediloL [Carvedilol] 25 mg PO BID Instructions: Cholecystectomy, Open Surgery Follow up with: BROOKLYN FRITZ MD [Primary Care Provider] - 07/04/23 10:45 am ALFREDO GASTON MD [ACTIVE STAFF] - 07/02/23 1:25 pm (follow up in 1 week after discharge )
== END 2023-06-27 16:30 | disposition home or self-care (01) | DRG 416 ==
LOC: ED 15:05 → MED SURG 17:13 → ICU 06-21 19:47 → OBSVTOIN 06-21 20:00 → INTOOBSV 06-22 10:00 → OBSVTOIN 06-22 10:00 → MED SURG 06-22 10:01 → ICU 06-22 10:04
PROVIDERS: ADMIT Internal Medicine; ATTEND Internal Medicine
PROC: 0FT40ZZ Resection of Gallbladder, Open Approach (ICD-10-PCS; principal; 2023-06-21)
PROC: 0DBL0ZZ Excision of Transverse Colon, Open Approach (ICD-10-PCS; 2023-06-21)
DX: K81.9 Cholecystitis, unspecified (principal); J44.9 Chronic obstructive pulmonary disease, unspecified; K21.9 Gastro-esophageal reflux disease without esophagitis; E78.5 Hyperlipidemia, unspecified; I73.9 Peripheral vascular disease, unspecified; N18.9 Chronic kidney disease, unspecified; E11.22 Type 2 diabetes mellitus with diabetic chronic kidney disease; I12.9 Hypertensive chronic kidney disease with stage 1 through stage 4 chronic kidney disease, or unspecified chronic kidney disease; R07.9 Chest pain, unspecified; I25.10 Atherosclerotic heart disease of native coronary artery without angina pectoris; R10.9 Unspecified abdominal pain; R74.8 Abnormal levels of other serum enzymes; R05.9 Cough, unspecified; E87.6 Hypokalemia; E55.9 Vitamin D deficiency, unspecified; Z79.899 Other long term (current) drug therapy; Z20.828 Contact with and (suspected) exposure to other viral communicable diseases
CPT/HCPCS: 00790; 36000; 36415; 36600; 36620; 44140; 47600; 64488; 71045; 71046; 71250; 74018; 76705; 76942; 78226; 80053; 80061; 82306; 82375; 82803; 82947; 83036; 83605; 83690; 83721; 83735; 83880; 84100; 84132; 84443; 84484; 85025; 85027; 85379; 86850; 86900; 86901; 87070; 87077; 87086; 87186; 93005; 93041; 93268; 93306; 94760; 94762; 99285; A9537; G0378; Q3014; J0330; J0360; J0612; J0694; J1170; J1650; J2250; J2270; J2371; J2405; J2704; J2795; J3010; L0625; A9270-GY

== ENCOUNTER 2023-10-17 08:08 | Day surgery (SDC) | payer MEDICARE ==
[2023-10-17] MEDS ORDERED: Lactated Ringers 1,000 ML IV SCH (08:30)
[2023-10-17] MEDS ORDERED: Lactated Ringers 1,000 ML IV ONE (08:32)
[2023-10-17 08:54] VITALS: RESP 18; O2SAT 98
[2023-10-17] MEDS ORDERED: DIPRIVAN 200 MG/20 ML IV ONE ×2 (11:11→11:24)
[2023-10-17] MEDS ORDERED: Versed 2 MG/2 ML Injection ONE (11:11)
[2023-10-17 12:34] VITALS: BP 178/95; PULSE 64
--- NOTE | 2023-10-17 14:45 | OP ---
SURGERY DATE/TIME: 10/17/2023 1112 PREOPERATIVE DIAGNOSES: 1) History of partial colectomy. 2) Abdominal pain. 3) Regurgitation. POSTOPERATIVE DIAGNOSES: 1) Mild gastritis. 2) Favor medication-related nausea and regurgitation. 3) Normal right colectomy colonoscopy. PROCEDURES: 1) EGD. 2) Colonoscopy. SURGEON: Preet Andino M.D. ANESTHESIA: IV anesthesia. CONDITION: Patient condition stable. COMPLICATIONS: None. SPECIMEN: Antrum biopsy for Helicobacter pylori. HISTORY: The patient is a 58-year-old male that had just terrible cholecystitis adherent to the colon which ultimately required a right colectomy. He did well after that and now more recently he is having is some upper abdominal pain, regurgitation of undigested food. He is on a daily proton pump inhibitor. Discussed with the patient recommendation for EGD and colonoscopy and he elected to proceed with that. FINDINGS: Mild gastritis. Biopsies taken for Helicobacter pylori. Colonoscopy with fair preparation. Probably will do a repeat scope in three to five years. DESCRIPTION OF PROCEDURE: The patient is routinely positioned and prepared. Timeout performed. IV anesthesia introduced by anesthesia. Video gastroscope was then inserted through the mouth advanced to the third portion of the duodenum. The duodenum is normal in appearance. The stomach has mild gastritis of the antrum. Biopsy is taken for Helicobacter pylori. Retroflexion shows normal gastroesophageal junction, no hiatal hernia. The esophagus was normal. The stomach is suctioned out. Scope is withdrawn. Digital rectal examination is normal. The scope is then inserted and advanced to the small bowel. The right colectomy anastomosis was healthy, satisfactory. There did appear to be a tattoo just distal to in the transverse colon. There is no evidence of any polyp at that location. The preparation per the Aronchick scale fair preparation. Withdrawal time shows no other lesion but small lesions could be missed. The patient tolerated the procedure well and was then taken to recovery in stable condition. RECOMMENDATIONS: Follow up phone visit in two to four weeks for the antral biopsy results. We will have to discuss timing of the next colonoscopy with prior polyps he has had, probably three years.
== END 2023-10-17 12:38 | disposition home or self-care (01) ==
LOC: SDC 08:08
PROVIDERS: ATTEND Surgery
DX: K29.70 Gastritis, unspecified, without bleeding (principal); Z90.49 Acquired absence of other specified parts of digestive tract; R10.9 Unspecified abdominal pain; R11.10 Vomiting, unspecified; E11.9 Type 2 diabetes mellitus without complications
CPT/HCPCS: 82947; 93005; J2250; J2704

== ENCOUNTER 2023-11-18 16:43 | Emergency (ER) | payer MEDICARE ==
[2023-11-18 16:58] VITALS: TEMP 100.2
[2023-11-18] MEDS ORDERED: Sterile H2O 10 ml IJ ONE (16:58)
[2023-11-18] MEDS ORDERED: solu-MEDROL ONE (16:59)
[2023-11-18] MEDS ORDERED: Sodium Chloride 0.9% 1000 ML 1,000 ML ONE (16:59)
[2023-11-18] MEDS ORDERED: PROVENTIL 2.5 MG/3 ML NEB IH ONE (17:03)
[2023-11-18] MEDS: Sodium Chloride 0.9% 1000 ML 1,000 ML IV SCH (17:03)
[2023-11-18] MEDS: PROVENTIL 2.5 MG/3 ML NEB IH ONE (17:08)
[2023-11-18] MEDS: solu-MEDROL 125 MG, Sterile H2O 10 ml 2 ML IV ONE (17:09)
[2023-11-18 17:13] LABS: BASOPHIL % 0.6 % (0.0-0.4); Basophil (Absolute #) 0.04 x10^3/uL (0-0.4); Eosinophil % 0.9 % (0.00-5.0); Eosinophil (Absolute #) 0.06 x10^3/uL (0-0.5); Hematocrit 41.4 % (42-50); Hemoglobin 13.4 g/dL (12.5-18.0); IMMATURE GRAN # 0.02 x10^3u/L (0.00-0.03); IMMATURE GRAN % 0.3 % (0.00-0.4); Lymphocyte (Absolute #) 0.84 x10^3/uL (1.0-4.6); Lymphocytes % 12.3 % (24.0-44.0); Mean Cell Volume 83.3 fL (78-100); Mean Corpuscular Hgb Concent. 32.4 g/dL (32-36); Mean Platelet Volume 9.4 fL (7.5-11.0); Monocyte (Absolute #) 0.77 x10^3/uL (0.0-1.3); Monocytes % 11.3 % (0.0-12.0); Neutrophil % 74.6 % (36.0-66.0); Platelet Count 206 x10^3/uL (150-450); Red Blood Count 4.97 x10^6/uL (4.1-5.6); Red Cell Distribution Width 14.9 % (11.5-14.0); White Blood Count 6.8 x10^3/uL (4.0-10.5)
[2023-11-18 17:35] LABS: ALBUMIN 4.6 g/dL (3.5-5.0); ANION GAP 11.1 MEQ/L (5-15); BILIRUBIN,TOTAL 0.5 mg/dL (0.2-1.3); Calcium 9.3 mg/dL (8.4-10.2); Creatinine 1 0.99 mg/dL (0.66-1.25); EST GLOMERULAR FILTRATION RATE 87.8 ML/MIN; Potassium 4.1 mmol/L (3.5-5.1); Total Protein 7.9 g/dL (6.3-8.2)
[2023-11-18 17:58] LABS: INFLUENZA A NEGATIVE (NEGATIVE); INFLUENZA B NEGATIVE (NEGATIVE); RESPIRATORY SYNCTIAL VIRUS NEGATIVE (NEGATIVE); SARS-CoV-2 Xpert Express NEGATIVE (NEGATIVE)
--- NOTE | 2023-11-18 19:53 | ERPHSYRPT ---
- History of Present Illness Source: patient Exam Limitations: no limitations Patient Subjective Stated Complaint: C/O SOB and cough X 4 days Triage Nursing Assessment: Patient ambulated back to ER. He is alert and oriented. Patient has a non-productive cough. SOB noted with exertion. Skin boyer with face flushed. Wheezes present. MEZA WNL. Timing/Duration: day(s) (45) Cough Quality/Degree: moderate, dry cough Possible Cause: occasional episodes Modifying Factors: Improves With: coughing Associated Symptoms: fever, chills, cough Hx Tetanus, Diphtheria Vaccination/Date Given: Yes Hx Influenza Vaccination/Date Given: No Hx Pneumococcal Vaccination/Date Given: No Immunizations Up to Date: Yes <DEMETRICE DOOLEY - Last Filed: 11/18/23 19:47> <Temo Christianson - Last Filed: 11/18/23 21:43> - History of Present Illness Time Seen by Provider: 11/18/23 17:00 Physician History: Patient is a 58-year-old white male who complains of shortness of breath cough for 4 days. He had nasal congestion headache and some nausea and vomiting. (DEMETRICE DOOLEY) Allergies/Adverse Reactions: No Known Drug Allergies Allergy (Verified 11/18/23 16:49) Home Medications: Metformin HCl 1000 mg [Glucophage 1000 MG] 1,000 mg PO BID 05/17/15 [History] Nitroglycerin [Nitrostat] 0.4 mg SL Q5MIN PRN MR X 3 PRN 07/03/15 [History] Gabapentin [Neurontin] 600 mg PO BID 07/24/20 [History] Rosuvastatin Calcium [Crestor] 40 mg PO DAILY 07/24/20 [History] Buspirone HCl 5 mg [Buspar 5 mg] 5 mg PO BID 06/04/21 [History] Fluoxetine HCl [Prozac] 10 mg PO DAILY 12/18/22 [History] Insulin Lispro [Humalog Kwikpen U-100] 0 unit SQ UD 12/18/22 [History] PANTOPRAZOLE 40 mg Tablet [Protonix 40MG Tablet] 40 mg PO DAILY 12/18/22 [History] Semaglutide [Ozempic] 2 mg SQ WEEKLY 12/18/22 [History] carvediloL [Carvedilol] 25 mg PO BID 05/07/23 [History] Travel Risk - International Travel Have you traveled outside of the country in past 3 weeks: No - Coronavirus Screening Are you exhibiting any of the following symptoms?: Yes Symptoms: Cough: New Onset, Shortness of Breath, Headaches/Body Aches/Fatigue Close contact with a COVID-19 positive Pt in past 14-21 Days: No - Vaccine Status Have you recieved a Covid-19 vaccination: Yes 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: [employer] - Vaccination Dates Date of 2cond Vaccination (if applicable): 2020 <DEMETRICE DOOLEY - Last Filed: 11/18/23 19:47> - Review of Systems Constitutional: Fever, Chills Eyes: No Symptoms Ears, Nose, & Throat: Nose Congestion Respiratory: Cough, Dyspnea, Wheezing Cardiac: No Chest Pain, No Edema, No Syncope Abdominal/Gastrointestinal: No Abdominal Pain, No Nausea, No Vomiting, No Diarrhea Genitourinary Symptoms: No Dysuria Musculoskeletal: No Back Pain, No Neck Pain Skin: No Rash Neurological: No Dizziness, No Focal Weakness, No Sensory Changes Psychological: No Symptoms Endocrine: No Symptoms All Other Systems: Reviewed and Negative <DEMETRICE DOOLEY - Last Filed: 11/18/23 19:47> - Past Medical History Pertinent Past Medical History: Yes Neurological History: Peripheral Neuropathy, Seizures, Stroke ENT History: No Pertinent History Cardiac History: Coronary Artery Disease, High Cholesterol, Hypertension, Peripheral Vascular Disease Respiratory History: COPD, Sleep Apnea, Other Endocrine Medical History: Diabetes Type II Musculoskeletal History: Fractures, Osteoarthritis GI Medical History: Esophageal Disorder, GERD, Gallbladder Disease, Pancreatitis History: No Pertinent History Psycho-Social History: Anxiety, Depression, Panic Disorder Male Reproductive Disorders: Prostate Problems Other Medical History: COVID IN 2019. FX LEFT FOREARM AND ANKLE A CHILD. LOWER EXTREMITY CELLULITIS - Past Surgical History Past Surgical History: Yes Neuro Surgical History: No Pertinent History Cardiac: Cardiac Catheterization Respiratory: No Pertinent History Gastrointestinal: Cholecystectomy Genitourinary: No Pertinent History Musculoskeletal: No Pertinent History Male Surgical History: No Pertinent History Other Surgical History: uvula removed, carpal tunnel right hand - Social History Smoking Status: Former smoker Exposure to second hand smoke: No Alcohol Use: None Drug Use: none Patient Lives Alone: No Significant Family History: heart disease, diabetes, hypertension <DEMETRICE DOOLEY - Last Filed: 11/18/23 19:47> - Physical Exam General Appearance: mild distress, alert Eye Exam: PERRL/EOMI, eyes nml inspection Ears, Nose, Throat Exam: normal ENT inspection, TMs normal, pharynx normal, moist mucous membranes Neck Exam: normal inspection, non-tender, supple, full range of motion Respiratory Exam: normal breath sounds, airway intact, rhonchi, wheezing, No respiratory distress Cardiovascular Exam: regular rate/rhythm, normal heart sounds Gastrointestinal/Abdomen Exam: soft, No tenderness Back Exam: normal inspection, No CVA tenderness, No vertebral tenderness Extremity Exam: normal inspection, normal range of motion Neurologic Exam: alert, oriented x 3, cooperative, normal mood/affect, sensation nml, No motor deficits Skin Exam: normal color, warm, dry, No rash Lymphatic Exam: No adenopathy SpO2: 98 <DEMETRICE DOOLEY - Last Filed: 11/18/23 19:47> - Nursing Vital Signs Nursing Vital Signs: Initial Vital Signs Temperature 100.2 F 11/18/23 16:51 Pulse Rate 79 11/18/23 16:51 Respiratory Rate 24 11/18/23 16:51 Blood Pressure 215/86 11/18/23 16:51 O2 Sat by Pulse Oximetry 94 L 11/18/23 16:51 Pain Scale Pain Intensity 0 - Course Nursing assessment & vital signs reviewed: Yes <DEMETRICE DOOLEY - Last Filed: 11/18/23 19:47> Ordered Tests: Active Orders 24 hr Category Date Time Status EKG-ER Only STAT Care 11/18/23 16:51 Active IV Insertion STAT Care 11/18/23 16:51 Active CHEST 1 VIEW (PORTABLE) Stat Exams 11/18/23 16:51 Taken CHEST WITH CONTRAST [CT] Stat Exams 11/18/23 19:02 Taken CBC W DIFF Stat Lab 11/18/23 17:00 Completed CMP Stat Lab 11/18/23 17:00 Completed D-DIMER QUANTITATIVE Stat Lab 11/18/23 17:00 Completed Lactic Acid Stat Lab 11/18/23 17:04 Completed NT PRO BNPII Stat Lab 11/18/23 17:00 Completed POCT GLUCOSE Stat Lab 11/18/23 20:06 Completed TROPONIN Q4H Lab 11/18/23 17:00 Completed TROPONIN Q4H Lab 11/18/23 21:00 Completed TROPONIN Q4H Lab 11/19/23 01:00 Ordered Respiratory Therapy Assessment DAILY RT 11/18/23 17:11 Active Medication Summary Generic Name Dose Route Start Last Admin Trade Name Uriel PRN Reason Stop Dose Admin Sodium Chloride 1,000 mls @ 100 mls/hr 11/18/23 17:00 11/18/23 17:03 Sodium Chloride 0.9% 1000 Ml IV 12/18/23 16:59 100 mls/hr .Q10H LACY Administration Discontinued Medications Generic Name Dose Route Start Last Admin Trade Name Uriel PRN Reason Stop Dose Admin Albuterol Sulfate 2.5 mg 11/18/23 16:51 11/18/23 17:08 Albuterol Sulfate 2.5 Mg/3 Ml Neb IH 11/18/23 16:52 2.5 mg STAT ONE Administration Albuterol Sulfate Confirm 11/18/23 17:03 Albuterol Sulfate 2.5 Mg/3 Ml Neb Administered 11/18/23 17:04 Dose 2.5 mg IH .STK-MED ONE Methylprednisolone Sodium 0 mg 11/18/23 16:51 11/18/23 17:09 Succinate 125 mg/ Sterile IV 11/18/23 16:52 125 mg Water 2 ml STAT ONE Administration Methylprednisolone Sodium Succinate Confirm 11/18/23 16:59 Methylprednis Sod Succ 125 Mg/2 Ml Vial Administered 11/18/23 17:00 Dose 125 mg .ROUTE .STK-MED ONE Sterile Water Confirm 11/18/23 16:58 Water For Injection,Sterile 10 Ml Vial Administered 11/18/23 16:59 Dose 10 ml IJ .STK-MED ONE Lab/Rad Data: Laboratory Result Diagrams 11/18/23 17:00 11/18/23 17:00 Laboratory Results 11/18/23 11/18/23 11/18/23 Range/Units 21:00 20:06 17:05 WBC (4.0-10.5) x10^3/uL RBC (4.1-5.6) x10^6/uL Hgb (12.5-18.0) g/dL Hct (42-50) % MCV (78-100) fL MCH (26-32) pg MCHC (32-36) g/dL RDW (11.5-14.0) % Plt Count (150-450) x10^3/uL MPV (7.5-11.0) fL Gran % (36.0-66.0) % Immature Gran % (Auto) (0.00-0.4) % Nucleat RBC Rel Count (0.00-0.1) % Eos # (Auto) (0-0.5) x10^3/uL Immature Gran # (Auto) (0.00-0.03) x10^3u/L Absolute Lymphs (auto) (1.0-4.6) x10^3/uL Absolute Monos (auto) (0.0-1.3) x10^3/uL Absolute Nucleated RBC (0.00-0.01) x10^3u/L Lymphocytes % (24.0-44.0) % Monocytes % (0.0-12.0) % Eosinophils % (0.00-5.0) % Basophils % (0.0-0.4) % Absolute Granulocytes (1.4-6.9) x10^3/uL Basophils # (0-0.4) x10^3/uL D-Dimer (0.0-0.50) mg/L Sodium (137-145) mmol/L Potassium (3.5-5.1) mmol/L Chloride (98-107) mmol/L Carbon Dioxide (22-30) mmol/L Anion Gap (5-15) MEQ/L BUN (9-20) mg/dL Creatinine (0.66-1.25) mg/dL Estimated GFR ML/MIN Glucose (74-106) mg/dL POC Glucometer 119 H (74 to 106) mg/dL Lactic Acid (0.4-2.0) Calcium (8.4-10.2) mg/dL Total Bilirubin (0.2-1.3) mg/dL AST (17-59) U/L ALT (0-50) U/L Alkaline Phosphatase (38-126) U/L Troponin I < 0.012 (0.000-0.034) ng/mL NT-Pro-B Natriuret Pep (<300) pg/mL Serum Total Protein (6.3-8.2) g/dL Albumin (3.5-5.0) g/dL Influenza Type A Ag NEGATIVE (NEGATIVE) Influenza Type B Ag NEGATIVE (NEGATIVE) RSV (PCR) NEGATIVE (NEGATIVE) SARS-CoV-2 (PCR) NEGATIVE (NEGATIVE) 11/18/23 11/18/23 11/18/23 Range/Units 17:04 17:00 17:00 WBC (4.0-10.5) x10^3/uL RBC (4.1-5.6) x10^6/uL Hgb (12.5-18.0) g/dL Hct (42-50) % MCV (78-100) fL MCH (26-32) pg MCHC (32-36) g/dL RDW (11.5-14.0) % Plt Count (150-450) x10^3/uL MPV (7.5-11.0) fL Gran % (36.0-66.0) % Immature Gran % (Auto) (0.00-0.4) % Nucleat RBC Rel Count (0.00-0.1) % Eos # (Auto) (0-0.5) x10^3/uL Immature Gran # (Auto) (0.00-0.03) x10^3u/L Absolute Lymphs (auto) (1.0-4.6) x10^3/uL Absolute Monos (auto) (0.0-1.3) x10^3/uL Absolute Nucleated RBC (0.00-0.01) x10^3u/L Lymphocytes % (24.0-44.0) % Monocytes % (0.0-12.0) % Eosinophils % (0.00-5.0) % Basophils % (0.0-0.4) % Absolute Granulocytes (1.4-6.9) x10^3/uL Basophils # (0-0.4) x10^3/uL D-Dimer 0.67 H* (0.0-0.50) mg/L Sodium (137-145) mmol/L Potassium (3.5-5.1) mmol/L Chloride (98-107) mmol/L Carbon Dioxide (22-30) mmol/L Anion Gap (5-15) MEQ/L BUN (9-20) mg/dL Creatinine (0.66-1.25) mg/dL Estimated GFR ML/MIN Glucose (74-106) mg/dL POC Glucometer (74 to 106) mg/dL Lactic Acid 0.9 (0.4-2.0) Calcium (8.4-10.2) mg/dL Total Bilirubin (0.2-1.3) mg/dL AST (17-59) U/L ALT (0-50) U/L Alkaline Phosphatase (38-126) U/L Troponin I < 0.012 (0.000-0.034) ng/mL NT-Pro-B Natriuret Pep (<300) pg/mL Serum Total Protein (6.3-8.2) g/dL Albumin (3.5-5.0) g/dL Influenza Type A Ag (NEGATIVE) Influenza Type B Ag (NEGATIVE) RSV (PCR) (NEGATIVE) SARS-CoV-2 (PCR) (NEGATIVE) 11/18/23 11/18/23 Range/Units 17:00 17:00 WBC 6.8 (4.0-10.5) x10^3/uL RBC 4.97 (4.1-5.6) x10^6/uL Hgb 13.4 (12.5-18.0) g/dL Hct 41.4 L (42-50) % MCV 83.3 (78-100) fL MCH 27.0 (26-32) pg MCHC 32.4 (32-36) g/dL RDW 14.9 H (11.5-14.0) % Plt Count 206 (150-450) x10^3/uL MPV 9.4 (7.5-11.0) fL Gran % 74.6 H (36.0-66.0) % Immature Gran % (Auto) 0.3 (0.00-0.4) % Nucleat RBC Rel Count 0.0 (0.00-0.1) % Eos # (Auto) 0.06 (0-0.5) x10^3/uL Immature Gran # (Auto) 0.02 (0.00-0.03) x10^3u/L Absolute Lymphs (auto) 0.84 L (1.0-4.6) x10^3/uL Absolute Monos (auto) 0.77 (0.0-1.3) x10^3/uL Absolute Nucleated RBC 0.00 (0.00-0.01) x10^3u/L Lymphocytes % 12.3 L (24.0-44.0) % Monocytes % 11.3 (0.0-12.0) % Eosinophils % 0.9 (0.00-5.0) % Basophils % 0.6 (0.0-0.4) % Absolute Granulocytes 5.10 (1.4-6.9) x10^3/uL Basophils # 0.04 (0-0.4) x10^3/uL D-Dimer (0.0-0.50) mg/L Sodium 137 (137-145) mmol/L Potassium 4.1 (3.5-5.1) mmol/L Chloride 101 (98-107) mmol/L Carbon Dioxide 28 (22-30) mmol/L Anion Gap 11.1 (5-15) MEQ/L BUN 14 (9-20) mg/dL Creatinine 0.99 (0.66-1.25) mg/dL Estimated GFR 87.8 ML/MIN Glucose 90 (74-106) mg/dL POC Glucometer (74 to 106) mg/dL Lactic Acid (0.4-2.0) Calcium 9.3 (8.4-10.2) mg/dL Total Bilirubin 0.50 (0.2-1.3) mg/dL AST 21 (17-59) U/L ALT 21 (0-50) U/L Alkaline Phosphatase 61 (38-126) U/L Troponin I (0.000-0.034) ng/mL NT-Pro-B Natriuret Pep 577 (<300) pg/mL Serum Total Protein 7.9 (6.3-8.2) g/dL Albumin 4.6 (3.5-5.0) g/dL Influenza Type A Ag (NEGATIVE) Influenza Type B Ag (NEGATIVE) RSV (PCR) (NEGATIVE) SARS-CoV-2 (PCR) (NEGATIVE) - Progress Progress: improved Air Movement: fair <DEMETRICE DOOLEY - Last Filed: 11/18/23 19:47> - Progress Progress: improved, re-examined Air Movement: good Blood Culture(s) Obtained: No Antibiotics given: No Counseled pt/family regarding: lab results, diagnosis, need for follow-up, rad results, smoking cessation <Temo Christianson - Last Filed: 11/18/23 21:43> - Progress Progress Note: 11/18/23 20:06 I took over pt care from Dr Dooley at 19:50, CTA chest pending 11/18/23 21:11 CTA chest negative for PE vitals stable, pt resting comfortably, breathing easy initial troponin negative, repeat pending 11/18/23 21:30 trop negative x 2 vitals stable, unlabored respirations, good air movement b/l plan for dc home w/ prednisone burst and short course doxycycline for COPD exacerbation (Temo Christianson) Medical Desision Making - Diagnostic Testing Diagnostic test were ordered, analyzed, and reviewed by me: Yes Radiological Interpretation: Reviewed by me, Teleradiologist Report - Risk of complications Low Risk: Low risk of morbidity from additional dx testing or treatment <Temo Christianson - Last Filed: 11/18/23 21:43> - Departure Departure Disposition: Observation Critical Care Time: No <DEMETRICE DOOLEY - Last Filed: 11/18/23 19:47> - Departure Departure Disposition: Home Critical Care Time: No <Temo Christianson - Last Filed: 11/18/23 21:43> - Departure Clinical Impression: COPD exacerbation Condition: Stable Referrals: BROOKLYN HORTON MD [Primary Care Provider] - Follow up/PCP as directed Instructions: Chronic Obstructive Pulmonary Disease, Exacerbation of COPD (DC) Additional Instructions: sent course of prednisone and doxycycline instructed to monitor blood glucose closely in setting of steroid use duoneb inhaler sent for prn relief of shortness of breath Pt has appt scheduled w/ Dr Horton on 11/20/23 return to ED if shortness of breath worsens and is not relieved by inhaler Prescriptions: Prednisone 20 mg [Deltasone 20 mg] 20 mg PO DAILY 3 Days #6 tablet Albuterol/Ipratropium 3ml Neb* [DUONEB 0.5-3 MG/3 ml Neb] 3 ml IH TID PRN #1 inhaler PRN Reason: Shortness Of Breath Doxycycline Hyclate 100 mg [Vibramycin 100 MG] 100 mg PO DAILY 5 Days #5 tab
[2023-11-18 21:06] VITALS: BP 186/92; PULSE 92; RESP 20; O2SAT 94
--- NOTE | 2023-11-19 08:38 | XRAY ---
Indication: Chest pain and short of breath. Elevated d-dimer. Multiple contiguous axial images obtained through the chest using 100 cc Isovue 370 contrast and PE protocol. Comparison: June 23, 2023 Adequate opacification of the pulmonary arteries to include the lobar and segmental branches. No pulmonary embolus. Heart not enlarged. Aorta is normal in course and caliber. Stable small left hilar calcified nodes. No pathologic mediastinal/hilar lymphadenopathy. Lungs demonstrates new minimal [id number]-like opacities right middle and left lower lobes favoring pneumonitis versus bronchiolitis. No consolidation or effusion. Stable left mid lung calcified granuloma. Bony thorax intact again with minimal degenerative changes of the spine and tiny multilevel thoracic Schmorl nodes. Limited upper abdomen again demonstrates fatty liver and splenic calcified granulomas. Impression: 1. Negative pulmonary embolus. 2. New minimal right middle and left lower lobe [id number]-like opacities, pneumonitis versus bronchiolitis. 3. Chronic findings including fatty liver, chronic bony findings, and old granulomatous disease.
--- NOTE | 2023-11-19 14:01 | XRAY ---
Indication: Short of breath. Comparison: June 23, 2023 Portable chest again demonstrates normal heart, lungs, and bony thorax. Again incidental calcified granulomas, largest left midlung.
== END 2023-11-18 21:53 | disposition home or self-care (01) ==
LOC: ED 16:43
DX: J44.1 Chronic obstructive pulmonary disease with (acute) exacerbation (principal); R06.02 Shortness of breath; R05.1 Acute cough; R09.81 Nasal congestion; R51.9 Headache, unspecified; R11.2 Nausea with vomiting, unspecified; E78.5 Hyperlipidemia, unspecified; I10 Essential (primary) hypertension; E11.42 Type 2 diabetes mellitus with diabetic polyneuropathy; Z79.84 Long term (current) use of oral hypoglycemic drugs; Z79.4 Long term (current) use of insulin; Z79.85 Long-term (current) use of injectable non-insulin antidiabetic drugs; Z79.52 Long term (current) use of systemic steroids; Z79.899 Other long term (current) drug therapy; Z86.16 Personal history of COVID-19
CPT/HCPCS: 0241U; 36000; 36415; 71045; 71260; 80053; 82947; 83605; 83880; 84484; 85025; 85379; 93005; 94640; 96374; 99284; J2930; J7609; A9270-GY

== ENCOUNTER 2024-05-18 12:07 | Emergency (ER) | payer MEDICARE, OTHER ==
[2024-05-18 12:24] VITALS: TEMP 97.7
[2024-05-18] MEDS ORDERED: Dextrose 5%-NS IV Solution 1000 ML 1,000 ML IV ONE (12:49)
[2024-05-18] MEDS: Dextrose 5%-NS IV Solution 1000 ML 1,000 ML IV SCH (12:50)
[2024-05-18 13:06] LABS: Absolute Neutrophil Ct (ANC) 5.11 x10^3/uL (1.78-5.38); BASOPHIL % 0.7 % (0.2-1.2); Basophil (Absolute #) 0.05 x10^3/uL (0.01-0.08); Eosinophil % 1.7 % (0.8-7.0); Eosinophil (Absolute #) 0.13 x10^3/uL (0.04-0.54); Hematocrit 41.4 % (40.1-51.0); IMMATURE GRAN # 0.04 x10^3u/L (0.001-0.031); IMMATURE GRAN % 0.5 % (0.001-0.429); Lymphocytes % 22.1 % (21.8-53.1); Mean Cell Volume 85.9 fL (79.0-92.2); Mean Corpuscular Hgb Concent. 33.8 g/dL (32.3-36.5); Mean Platelet Volume 9.7 fL (9.4-12.4); Monocyte (Absolute #) 0.65 x10^3/uL (0.30-0.82); Monocytes % 8.5 % (5.3-12.2); Neutrophil % 66.5 % (34.0-67.9); Platelet Count 227 x10^3/uL (163-337); Red Blood Count 4.82 x10^6/uL (4.63-6.08); Red Cell Distribution Width 13.7 % (11.6-14.4); White Blood Count 7.7 x10^3/uL (4.23-9.07)
[2024-05-18 13:15] LABS: ALBUMIN 4.6 g/dL (3.5-5.0); ANION GAP 17.2 MEQ/L (5-15); BILIRUBIN,TOTAL 0.4 mg/dL (0.2-1.3); Calcium 9.6 mg/dL (8.4-10.2); Creatinine 1 1.26 mg/dL (0.66-1.25); EST GLOMERULAR FILTRATION RATE 65.3 ML/MIN; Potassium 3.8 mmol/L (3.5-5.1); Total Protein 7.4 g/dL (6.3-8.2)
[2024-05-18 13:16] VITALS: O2SAT 94
--- NOTE | 2024-05-18 13:22 | ERPHSYRPT ---
- History of Present Illness Source: patient Exam Limitations: no limitations Patient Subjective Stated Complaint: Pt states "I was working and I got really sweaty all of a sudden and I am not sure if it was my blood pressure or my sugar." Triage Nursing Assessment: Pt presented alert and oriented X 3, skin pwd. PT ambulates with a slow gait, able to speak in clear full sentences. Pt resting comfortably on the bed. Physician History: patient came in with hypoglycemia. He is in the 40s. Happened was around 8 a.m. this morning the patient dropped his Dexcom monitor. He has an insulin pump that was hooked up to it. The pump was not getting accurate information and I believe that it is Working. He was getting ready go to work and then got diaphoretic and weak. He got a little bit sweaty. He did not have any chest pain. He rested and then eventually came in. This is all about an hour before he arrived. Whenever he got here his blood sugar was in the 40s. He said he did not feel much like eating. He ate a large breakfast earlier today and he said he still had a full stomach. His blood pressure was a bit low when he got here. He was in the 90s. That was a systolic pressure. He denies any chest pain shortness of breath or other systemic symptoms. Severity: mild, moderate Allergies/Adverse Reactions: No Known Drug Allergies Allergy (Verified 02/21/24 16:30) Home Medications: Metformin HCl 1000 mg [Glucophage 1000 MG] 1,000 mg PO BID 05/17/15 [History] Nitroglycerin [Nitrostat] 0.4 mg SL Q5MIN PRN MR X 3 PRN 07/03/15 [History] Gabapentin [Neurontin] 600 mg PO BID 07/24/20 [History] Rosuvastatin Calcium [Crestor] 40 mg PO DAILY 07/24/20 [History] Buspirone HCl 5 mg [Buspar 5 mg] 5 mg PO BID 06/04/21 [History] Fluoxetine HCl [Prozac] 10 mg PO DAILY 12/18/22 [History] Insulin Lispro [Humalog Kwikpen U-100] 0 unit SQ UD 12/18/22 [History] PANTOPRAZOLE 40 mg Tablet [Protonix 40MG Tablet] 40 mg PO DAILY 12/18/22 [History] Semaglutide [Ozempic] 2 mg SQ WEEKLY 12/18/22 [History] carvediloL [Carvedilol] 25 mg PO BID 05/07/23 [History] Hx Tetanus, Diphtheria Vaccination/Date Given: Yes Hx Influenza Vaccination/Date Given: No Hx Pneumococcal Vaccination/Date Given: No Immunizations Up to Date: No Travel Risk - International Travel Have you traveled outside of the country in past 3 weeks: No - Emerging Infectious Disease Are you exhibiting symptoms associated with any current EIDs: No - Review of Systems Constitutional: Fatigue Eyes: No Symptoms Respiratory: No Symptoms Cardiac: No Symptoms Abdominal/Gastrointestinal: No Symptoms Neurological: No Symptoms Psychological: No Symptoms All Other Systems: Reviewed and Negative - Past Medical History Pertinent Past Medical History: Yes Neurological History: Stroke, Seizures, Peripheral Neuropathy ENT History: No Pertinent History Cardiac History: Coronary Artery Disease, High Cholesterol, Hypertension, Peripheral Vascular Disease Respiratory History: Sleep Apnea, Other, COPD Endocrine Medical History: Diabetes Type II Musculoskeletal History: Fractures, Osteoarthritis GI Medical History: GERD, Pancreatitis, Gallbladder Disease, Esophageal Disorder History: No Pertinent History Psycho-Social History: Depression, Anxiety, Panic Disorder Male Reproductive Disorders: Prostate Problems Other Medical History: COVID IN 2020. FX LEFT FOREARM AND ANKLE A CHILD. LOWER EXTREMITY CELLULITIS - Past Surgical History Past Surgical History: Yes Neuro Surgical History: No Pertinent History Cardiac: Cardiac Catheterization Respiratory: No Pertinent History Gastrointestinal: Cholecystectomy Genitourinary: No Pertinent History Musculoskeletal: No Pertinent History Male Surgical History: No Pertinent History Other Surgical History: uvula removed, carpal tunnel right hand Significant Family History: heart disease, diabetes, hypertension - Social History Smoking Status: Former smoker Exposure to second hand smoke: Yes Alcohol Use: None Drug Use: none Patient Lives Alone: No - Social Determinants of Health Will the patient participate in the screening: Yes Do you worry about a steady place to live?: No Do you have any problems with any of the following?: No known problems In the past 12 months,have you had to go without utilities?: No Transportation Issues: No Has anyone in your support network made you feel unsafe?: No Have you or anyone in your house had to go without enough: No - Nursing Vital Signs Nursing Vital Signs: Initial Vital Signs Temperature 97.7 F 05/18/24 12:19 Pulse Rate 67 08/12/24 12:19 Respiratory Rate 22 05/18/24 12:19 Blood Pressure 93/49 05/18/24 12:19 O2 Sat by Pulse Oximetry 99 05/18/24 12:19 Pain Scale Pain Intensity 0 - Physical Exam General Appearance: no apparent distress Eye Exam: PERRL/EOMI Respiratory Exam: normal breath sounds, lungs clear, No chest tenderness Cardiovascular Exam: regular rate/rhythm, normal heart sounds, normal peripheral pulses Gastrointestinal/Abdomen Exam: soft, normal bowel sounds, No tenderness, No distention Back Exam: normal inspection, normal range of motion Extremity Exam: normal inspection, normal range of motion Neurologic Exam: alert, oriented x 3 Skin Exam: normal color, warm SpO2: 94 - Course Nursing assessment & vital signs reviewed: Yes Ordered Tests: Active Orders 24 hr Category Date Time Status EKG-ER Only STAT Care 05/18/24 12:46 Active CBC W DIFF Stat Lab 05/18/24 12:30 Completed CMP Stat Lab 05/18/24 12:30 Completed POCT GLUCOSE Stat Lab 05/18/24 12:30 Completed POCT GLUCOSE Stat Lab 05/18/24 13:37 Completed Medication Summary Generic Name Dose Route Start Last Admin Trade Name Yamilq PRN Reason Stop Dose Admin Dextrose/Sodium Chloride 1,000 mls @ 500 mls/hr 05/18/24 13:00 05/18/24 12:50 Dextrose 5%-Ns Iv Solution 1000 Ml IV 06/17/24 12:59 500 mls/hr .Q2H LACY Administration Laboratory Results - last 24 hr 05/18/24 05/18/24 05/18/24 12:30 12:30 12:30 WBC 7.7 RBC 4.82 Hgb 14.0 Hct 41.4 MCV 85.9 MCH 29.0 MCHC 33.8 RDW 13.7 Plt Count 227 MPV 9.7 Gran % 66.5 Immature Gran % (Auto) 0.5 H Nucleat RBC Rel Count 0.0 Eos # (Auto) 0.13 Immature Gran # (Auto) 0.04 H Absolute Lymphs (auto) 1.70 Absolute Monos (auto) 0.65 Absolute Nucleated RBC 0.00 Lymphocytes % 22.1 Monocytes % 8.5 Eosinophils % 1.7 Basophils % 0.7 Absolute Granulocytes 5.11 Basophils # 0.05 Sodium 142 Potassium 3.8 Chloride 106 Carbon Dioxide 22 Anion Gap 17.2 H BUN 25 H Creatinine 1.26 H Estimated GFR 65.3 Glucose 47 L* POC Glucometer 49 L* Calcium 9.6 Total Bilirubin 0.40 AST 28 ALT 32 Alkaline Phosphatase 54 Serum Total Protein 7.4 Albumin 4.6 05/18/24 13:37 WBC RBC Hgb Hct MCV MCH MCHC RDW Plt Count MPV Gran % Immature Gran % (Auto) Nucleat RBC Rel Count Eos # (Auto) Immature Gran # (Auto) Absolute Lymphs (auto) Absolute Monos (auto) Absolute Nucleated RBC Lymphocytes % Monocytes % Eosinophils % Basophils % Absolute Granulocytes Basophils # Sodium Potassium Chloride Carbon Dioxide Anion Gap BUN Creatinine Estimated GFR Glucose POC Glucometer 202 H Calcium Total Bilirubin AST ALT Alkaline Phosphatase Serum Total Protein Albumin Lab/Rad Data: Laboratory Result Diagrams 05/18/24 12:30 05/18/24 12:30 Laboratory Results 05/18/24 05/18/24 05/18/24 Range/Units 13:37 12:30 12:30 WBC 7.7 (4.23-9.07) x10^3/uL RBC 4.82 (4.63-6.08) x10^6/uL Hgb 14.0 (13.7-17.5) g/dL Hct 41.4 (40.1-51.0) % MCV 85.9 (79.0-92.2) fL MCH 29.0 (25.7-32.2) pg MCHC 33.8 (32.3-36.5) g/dL RDW 13.7 (11.6-14.4) % Plt Count 227 (163-337) x10^3/uL MPV 9.7 (9.4-12.4) fL Gran % 66.5 (34.0-67.9) % Immature Gran % (Auto) 0.5 H (0.001-0.429) % Nucleat RBC Rel Count 0.0 (0.00-0.2) % Eos # (Auto) 0.13 (0.04-0.54) x10^3/uL Immature Gran # (Auto) 0.04 H (0.001-0.031) x10^3u/L Absolute Lymphs (auto) 1.70 (1.32-3.57) x10^3/uL Absolute Monos (auto) 0.65 (0.30-0.82) x10^3/uL Absolute Nucleated RBC 0.00 (0.00-0.012) x10^3u/L Lymphocytes % 22.1 (21.8-53.1) % Monocytes % 8.5 (5.3-12.2) % Eosinophils % 1.7 (0.8-7.0) % Basophils % 0.7 (0.2-1.2) % Absolute Granulocytes 5.11 (1.78-5.38) x10^3/uL Basophils # 0.05 (0.01-0.08) x10^3/uL Sodium 142 (135-145) mmol/L Potassium 3.8 (3.5-5.1) mmol/L Chloride 106 (98-107) mmol/L Carbon Dioxide 22 (22-30) mmol/L Anion Gap 17.2 H (5-15) MEQ/L BUN 25 H (9-20) mg/dL Creatinine 1.26 H (0.66-1.25) mg/dL Estimated GFR 65.3 ML/MIN Glucose 47 L* (74-106) mg/dL POC Glucometer 202 H (50 to 500) mg/dL Calcium 9.6 (8.4-10.2) mg/dL Total Bilirubin 0.40 (0.2-1.3) mg/dL AST 28 (17-59) U/L ALT 32 (0-50) U/L Alkaline Phosphatase 54 (38-126) U/L Serum Total Protein 7.4 (6.3-8.2) g/dL Albumin 4.6 (3.5-5.0) g/dL 05/18/24 Range/Units 12:30 WBC (4.23-9.07) x10^3/uL RBC (4.63-6.08) x10^6/uL Hgb (13.7-17.5) g/dL Hct (40.1-51.0) % MCV (79.0-92.2) fL MCH (25.7-32.2) pg MCHC (32.3-36.5) g/dL RDW (11.6-14.4) % Plt Count (163-337) x10^3/uL MPV (9.4-12.4) fL Gran % (34.0-67.9) % Immature Gran % (Auto) (0.001-0.429) % Nucleat RBC Rel Count (0.00-0.2) % Eos # (Auto) (0.04-0.54) x10^3/uL Immature Gran # (Auto) (0.001-0.031) x10^3u/L Absolute Lymphs (auto) (1.32-3.57) x10^3/uL Absolute Monos (auto) (0.30-0.82) x10^3/uL Absolute Nucleated RBC (0.00-0.012) x10^3u/L Lymphocytes % (21.8-53.1) % Monocytes % (5.3-12.2) % Eosinophils % (0.8-7.0) % Basophils % (0.2-1.2) % Absolute Granulocytes (1.78-5.38) x10^3/uL Basophils # (0.01-0.08) x10^3/uL Sodium (135-145) mmol/L Potassium (3.5-5.1) mmol/L Chloride (98-107) mmol/L Carbon Dioxide (22-30) mmol/L Anion Gap (5-15) MEQ/L BUN (9-20) mg/dL Creatinine (0.66-1.25) mg/dL Estimated GFR ML/MIN Glucose (74-106) mg/dL POC Glucometer 49 L* (50 to 500) mg/dL Calcium (8.4-10.2) mg/dL Total Bilirubin (0.2-1.3) mg/dL AST (17-59) U/L ALT (0-50) U/L Alkaline Phosphatase (38-126) U/L Serum Total Protein (6.3-8.2) g/dL Albumin (3.5-5.0) g/dL - Progress Progress: improved Progress Note: We observe the patient for about an hour gave him some D5. His blood pressure went up to 140/70 and his sugar went up to 202. He stated that he was feeling much better. He has a blood sugar monitor at home and does have some regular insulin that he can administer to himself on a sliding scale basis. At this time I think it is due to malfunction of his Dexcom continuous glucose monitor machine. He is requesting to go home. I think that he is stable. I am going to have him follow-up with his primary doctor whoever has him on his regimen for getting new continuous glucose monitor and pump if needed. 05/18/24 13:40 Medical Desision Making - Discussion of managment Reviewed:: Test results - Risk of complications Minimal Risk: Minimal risk of morbidity - Departure Departure Disposition: Home Clinical Impression: Hypoglycemia due to insulin Condition: Stable Critical Care Time: No Referrals: BROOKLYN FRITZ MD [Primary Care Provider] - Follow up/PCP as directed Additional Instructions: Monitor your sugar 4 times a day before meals and bedtime use regular insulin on a sliding scale as you have done in the past. Follow-up with your primary care doctor for further treatment and a new continuous glucose monitor and insulin pump.
[2024-05-18 13:50] VITALS: BP 142/59; PULSE 62; RESP 14
== END 2024-05-18 13:58 | disposition home or self-care (01) ==
LOC: ED 12:07
DX: T38.3X1A Poisoning by insulin and oral hypoglycemic [antidiabetic] drugs, accidental (unintentional), initial encounter (principal); E11.649 Type 2 diabetes mellitus with hypoglycemia without coma; E11.42 Type 2 diabetes mellitus with diabetic polyneuropathy; E78.5 Hyperlipidemia, unspecified; I10 Essential (primary) hypertension; Z79.4 Long term (current) use of insulin; Z79.84 Long term (current) use of oral hypoglycemic drugs; Z79.85 Long-term (current) use of injectable non-insulin antidiabetic drugs; Z79.899 Other long term (current) drug therapy; Z96.41 Presence of insulin pump (external) (internal)
CPT/HCPCS: 36000; 36415; 80053; 82947; 85025; 93005; 96365; 99284

== ENCOUNTER 2024-06-20 16:29 | Emergency (ER) | payer MEDICARE, OTHER ==
[2024-06-20 16:38] VITALS: RESP 20; TEMP 98.7; O2SAT 96
--- NOTE | 2024-06-20 16:49 | ERPHSYRPT ---
- History of Present Illness Time Seen by Provider: 06/20/24 16:45 Source: patient Exam Limitations: no limitations Patient Subjective Stated Complaint: Pt states "I was using the regrinder operator and it hopped and ran right over my right hand." Triage Nursing Assessment: PT presented alert and oriented X 3, skin pwd. PT has a 1 cm deep abrasion noted to second digit of right hand. 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 The patient's tetanus status is not up-to-date. Patient has a history of hypertension and diabetes. Timing/Duration: today Quality: painful Severity: mild Location: hands (Right index finger dorsal aspect) Associated Symptoms: denies symptoms Allergies/Adverse Reactions: No Known Drug Allergies Allergy (Verified 02/21/24 16:30) Home Medications: Metformin HCl 1000 mg [Glucophage 1000 MG] 1,000 mg PO BID 05/17/15 [History] Nitroglycerin [Nitrostat] 0.4 mg SL Q5MIN PRN MR X 3 PRN 07/03/15 [History] Gabapentin [Neurontin] 600 mg PO BID 07/24/20 [History] Rosuvastatin Calcium [Crestor] 40 mg PO DAILY 07/24/20 [History] Buspirone HCl 5 mg [Buspar 5 mg] 5 mg PO BID 06/04/21 [History] Fluoxetine HCl [Prozac] 10 mg PO DAILY 12/18/22 [History] Insulin Lispro [Humalog Kwikpen U-100] 0 unit SQ UD 12/18/22 [History] PANTOPRAZOLE 40 mg Tablet [Protonix 40MG Tablet] 40 mg PO DAILY 12/18/22 [History] Semaglutide [Ozempic] 2 mg SQ WEEKLY 12/18/22 [History] carvediloL [Carvedilol] 25 mg PO BID 05/07/23 [History] Hx Tetanus, Diphtheria Vaccination/Date Given: No Hx Influenza Vaccination/Date Given: No Hx Pneumococcal Vaccination/Date Given: No Immunizations Up to Date: No Travel Risk - International Travel Have you traveled outside of the country in past 3 weeks: No - Emerging Infectious Disease Are you exhibiting symptoms associated with any current EIDs: No - Review of Systems Constitutional: No Symptoms Eyes: No Symptoms Ears, Nose, & Throat: No Symptoms Respiratory: No Symptoms Cardiac: No Symptoms Abdominal/Gastrointestinal: No Symptoms Genitourinary Symptoms: No Symptoms Musculoskeletal: Injury (Dorsal aspect right index finger) Skin: Other (1 cm skin laceration dorsal aspect base of right index finger) Neurological: No Symptoms Psychological: No Symptoms Endocrine: No Symptoms Hematologic/Lymphatic: No Symptoms Immunological/Allergic: No Symptoms All Other Systems: Reviewed and Negative - Past Medical History Pertinent Past Medical History: Yes Neurological History: Stroke, Seizures, Peripheral Neuropathy ENT History: No Pertinent History Cardiac History: Coronary Artery Disease, High Cholesterol, Hypertension, Peripheral Vascular Disease Respiratory History: Sleep Apnea, Other, COPD Endocrine Medical History: Diabetes Type II Musculoskeletal History: Fractures, Osteoarthritis GI Medical History: GERD, Pancreatitis, Gallbladder Disease, Esophageal Disorder History: No Pertinent History Psycho-Social History: Depression, Anxiety, Panic Disorder Male Reproductive Disorders: Prostate Problems Other Medical History: COVID IN 2019. FX LEFT FOREARM AND ANKLE A CHILD. LOWER EXTREMITY CELLULITIS - Past Surgical History Past Surgical History: Yes Neuro Surgical History: No Pertinent History Cardiac: Cardiac Catheterization Respiratory: No Pertinent History Gastrointestinal: Cholecystectomy Genitourinary: No Pertinent History Musculoskeletal: No Pertinent History Male Surgical History: No Pertinent History Other Surgical History: uvula removed, carpal tunnel right hand Significant Family History: heart disease, diabetes, hypertension - Social History Smoking Status: Former smoker Exposure to second hand smoke: Yes Alcohol Use: None Drug Use: none Patient Lives Alone: No - Social Determinants of Health Will the patient participate in the screening: Yes Do you worry about a steady place to live?: No Do you have any problems with any of the following?: No known problems In the past 12 months,have you had to go without utilities?: No Transportation Issues: No Has anyone in your support network made you feel unsafe?: No Have you or anyone in your house had to go without enough: No - Nursing Vital Signs Nursing Vital Signs: Initial Vital Signs Temperature 98.7 F 06/20/24 16:33 Pulse Rate 69 06/20/24 16:33 Respiratory Rate 20 06/20/24 16:33 Blood Pressure 180/86 06/20/24 16:33 O2 Sat by Pulse Oximetry 96 06/20/24 16:33 Pain Scale Pain Intensity 0 - Physical Exam General Appearance: no apparent distress, alert Eye Exam: PERRL/EOMI, eyes nml inspection Ears, Nose, Throat Exam: normal ENT inspection, moist mucous membranes Neck Exam: normal inspection, non-tender, supple, full range of motion Respiratory Exam: airway intact, No chest tenderness, No respiratory distress Gastrointestinal/Abdomen Exam: No tenderness Rectal Exam: not done Back Exam: normal inspection, normal range of motion, No CVA tenderness, No vertebral tenderness Extremity Exam: normal range of motion, pelvis stable, lacerations (Skin laceration 1 cm base of dorsal right index finger. Neurovascularly intact. Tendons intact), tenderness (Dorsal aspect aspect right index finger) Neurologic Exam: alert, oriented x 3, cooperative, power hammer operator II-XII nml as tested, normal mood/affect, nml cerebellar function, nml station & gait, sensation nml Skin Exam: laceration (See above extremity section) Lymphatic Exam: No adenopathy SpO2 Interpretation: normal SpO2: 96 O2 Delivery: Room Air Procedures - Laceration/Wound Repair Right Dorsal Finger Time of Procedure: 17:15 Wound Location: Right, hand (Dorsal aspect right index finger) Wound Length (cm): 1 Wound's Depth, Shape: superficial, linear Wound Explored: contaminated (mildly. No foreign body noted. Examination was made to the base in a bloodless field. We thoroughly cleaned and scrubbed the site because of the mild grime present around the wound.) Irrigated: Yes Hibiclens Prep: Yes Wound Repaired With: Steri-strips, Dermabond (And benzoin solution) - Course Nursing assessment & vital signs reviewed: Yes Ordered Tests: Medication Summary Discontinued Medications Generic Name Dose Route Start Last Admin Trade Name Uriel PRN Reason Stop Dose Admin Diphtheria/Tetanus/Acell Pertussis 0.5 ml 06/20/24 17:10 06/20/24 17:14 Tdap --Diph,Pertuss(Acell),Tet Vac/Pf 0.5 Ml Vial IM 06/20/24 17:11 0.5 ml .ONCE ONE Administration Diphtheria/Tetanus/Acell Pertussis Confirm 06/20/24 17:12 Tdap --Diph,Pertuss(Acell),Tet Vac/Pf 0.5 Ml Vial Administered 06/20/24 17:13 Dose 0.5 ml IM .STK-MED ONE - Progress Progress: improved Progress Note: 06/20/24 17:32 My medical decision making and the assignment of low complexity to this patient's medical issue today is based on review of the patient's past medical history, review the patient's medication list, review patient drug allergy list, history present illness and physical findings on examination. The workup in this patient does not require radiographic or laboratory studies. Since there was mild contamination of the site with grime and dust, I am remotely sending a 5-day prescription of Keflex to the patient's pharmacy. Counseled pt/family regarding: diagnosis Medical Desision Making - Diagnostic Testing Diagnostic test were ordered, analyzed, and reviewed by me: No - Risk of complications The pt has a mod risk of morbidity or mortality based on: Need for prescription drug management - Departure Departure Disposition: Home Clinical Impression: Finger laceration Condition: Stable Critical Care Time: No Referrals: BROOKLYN FRITZ MD [Primary Care Provider] - Follow up/PCP as directed Additional Instructions: Keep the laceration repair site dry until the evening of 06/21/2024. At that time you may allow the soapy water to flow over the repair site and Steri- Strips. Do not pull off the Steri-Strips. Trim them with scissors as needed as they will curl up. Take your antibiotics and other medications as prescribed. Prescriptions: Cephalexin Mh 500 mg [Keflex 500 mg] 500 mg PO TID #15 cap
[2024-06-20] MEDS ORDERED: Adacel Vial IM ONE (17:12)
[2024-06-20] MEDS: Adacel Vial IM ONE (17:14)
[2024-06-20 17:32] VITALS: BP 166/75; PULSE 65
== END 2024-06-20 17:52 | disposition home or self-care (01) ==
LOC: ED 16:29
DX: S61.210A Laceration without foreign body of right index finger without damage to nail, initial encounter (principal); W29.8XXA Contact with other powered hand tools and household machinery, initial encounter; I10 Essential (primary) hypertension; E11.42 Type 2 diabetes mellitus with diabetic polyneuropathy; E78.5 Hyperlipidemia, unspecified; Z79.4 Long term (current) use of insulin; Z79.84 Long term (current) use of oral hypoglycemic drugs; Z79.85 Long-term (current) use of injectable non-insulin antidiabetic drugs; Z79.899 Other long term (current) drug therapy; Z23 Encounter for immunization
CPT/HCPCS: 12001; 90471; 90715; 99282

== ENCOUNTER 2024-08-14 15:34 | Emergency (ER) | payer MEDICARE, OTHER ==
--- NOTE | 2024-08-14 15:46 | ERPHSYRPT ---
- History of Present Illness Time Seen by Provider: 08/14/24 15:46 Source: patient, family Exam Limitations: no limitations Physician History: This is an obese 59-year-old white male patient of Dr. Fritz who arrives to the emergency department by private vehicle secondary to left shoulder and left hip pain. Patient was in a chair and somehow slipped out of it onto those 2 sites. He did not hurt his neck or his head. He has no aches or pains anywhere else on his body. He denies shortness of breath. He denies abdominal pain. Patient is a diabetic and has peripheral neuropathy, hyperlipidemia, gastroesophageal reflux disease, hypertension, anxiety/depression, coronary artery disease, pancreatitis, peripheral vascular disease and COPD. Patient was able to ambulate to his emergency department room Occurred: this morning Reason for Fall: unknown Injuries/Pain Location: upper extremity (Left shoulder), lower extremity (Left hip) Loss of Consciousness: no loss of consciousness Severity of Pain-Max: mild (Moderate) Severity of Pain-Current: mild (To moderate) Associated Symptoms (Fall): extremity injury (Left hip and left shoulder pain) Allergies/Adverse Reactions: No Known Drug Allergies Allergy (Verified 02/21/24 16:30) Home Medications: Metformin HCl 1000 mg [Glucophage 1000 MG] 1,000 mg PO BID 05/17/15 [History] Nitroglycerin [Nitrostat] 0.4 mg SL Q5MIN PRN MR X 3 PRN 07/03/15 [History] Gabapentin [Neurontin] 600 mg PO BID 07/24/20 [History] Rosuvastatin Calcium [Crestor] 40 mg PO DAILY 07/24/20 [History] Buspirone HCl 5 mg [Buspar 5 mg] 5 mg PO BID 06/04/21 [History] Fluoxetine HCl [Prozac] 10 mg PO DAILY 12/18/22 [History] Insulin Lispro [Humalog Kwikpen U-100] 0 unit SQ UD 12/18/22 [History] PANTOPRAZOLE 40 mg Tablet [Protonix 40MG Tablet] 40 mg PO DAILY 12/18/22 [History] Semaglutide [Ozempic] 2 mg SQ WEEKLY 12/18/22 [History] carvediloL [Carvedilol] 25 mg PO BID 08/01/23 [History] Hx Tetanus, Diphtheria Vaccination/Date Given: No Hx Influenza Vaccination/Date Given: No Hx Pneumococcal Vaccination/Date Given: No Travel Risk - International Travel Have you traveled outside of the country in past 3 weeks: No - Emerging Infectious Disease Are you exhibiting symptoms associated with any current EIDs: No - Review of Systems Constitutional: No Symptoms Eyes: No Symptoms Ears, Nose, & Throat: No Symptoms Respiratory: No Symptoms Cardiac: No Symptoms Abdominal/Gastrointestinal: No Symptoms Genitourinary Symptoms: No Symptoms Musculoskeletal: Fall, Injury (Left hip and left shoulder) Skin: No Symptoms Neurological: No Symptoms Psychological: No Symptoms Endocrine: No Symptoms Hematologic/Lymphatic: No Symptoms Immunological/Allergic: No Symptoms All Other Systems: Reviewed and Negative - Past Medical History Pertinent Past Medical History: Yes Neurological History: Stroke, Seizures, Peripheral Neuropathy ENT History: No Pertinent History Cardiac History: Coronary Artery Disease, High Cholesterol, Hypertension, Peripheral Vascular Disease Respiratory History: Sleep Apnea, Other, COPD Endocrine Medical History: Diabetes Type II Musculoskeletal History: Fractures, Osteoarthritis GI Medical History: GERD, Pancreatitis, Gallbladder Disease, Esophageal Disorder History: No Pertinent History Psycho-Social History: Depression, Anxiety, Panic Disorder Male Reproductive Disorders: Prostate Problems Other Medical History: COVID IN 2020. FX LEFT FOREARM AND ANKLE A CHILD. LOWER EXTREMITY CELLULITIS - Past Surgical History Past Surgical History: Yes Neuro Surgical History: No Pertinent History Cardiac: Cardiac Catheterization Respiratory: No Pertinent History Gastrointestinal: Cholecystectomy Genitourinary: No Pertinent History Musculoskeletal: No Pertinent History Male Surgical History: No Pertinent History Other Surgical History: uvula removed, carpal tunnel right hand Significant Family History: heart disease, diabetes, hypertension - Social History Smoking Status: Former smoker Exposure to second hand smoke: Yes Alcohol Use: None Drug Use: none Patient Lives Alone: No - Social Determinants of Health Will the patient participate in the screening: Yes Do you worry about a steady place to live?: No In the past 12 months,have you had to go without utilities?: No Transportation Issues: No Has anyone in your support network made you feel unsafe?: No Have you or anyone in your house had to go without enough: No - Nursing Vital Signs Nursing Vital Signs: Initial Vital Signs Temperature 97.6 F 08/14/24 15:40 Pulse Rate 67 08/14/24 15:40 Respiratory Rate 18 08/14/24 15:40 Blood Pressure 152/70 08/14/24 15:40 O2 Sat by Pulse Oximetry 97 08/14/24 15:40 Pain Scale Pain Intensity 3 - [place] Coma Score Best Eye Response ([place]): (4) open spontaneously Best Verbal Response ([place]): (5) oriented Best Motor Response ([place]): (6) obeys commands [place] Total: 15 - Physical Exam General Appearance: no apparent distress, alert, obese Head Injury: no evidence of injury Eye Exam: PERRL/EOMI, eyes nml inspection ENT Exam: airway nml, nml ext.inspection Neck Exam: supple, trachea midline, full range of motion, normal alignment, normal inspection Respiratory/Chest Exam: No chest tenderness, No respiratory distress Gastrointestinal Exam: No tenderness Rectal Exam: not done Back Exam: normal inspection, normal range of motion, No CVA tenderness, No vertebral tenderness Extremity Exam: normal inspection, normal range of motion, pelvis stable, tenderness (To palpation left shoulder and left hip), No deformities Neurologic Exam: alert, oriented x 3, cooperative, credit representative II-XII nml as tested, normal mood/affect, nml cerebellar function, nml station & gait, sensation nml Skin Exam: normal color, warm, dry SpO2 Interpretation: normal O2 Delivery: Room Air - Course Nursing assessment & vital signs reviewed: Yes Ordered Tests: Active Orders 24 hr Category Date Time Status HIP UNI (2V) INCL PEL IF DONE Stat Exams 08/14/24 15:46 Completed SHOULDER Stat Exams 08/14/24 15:46 Completed - Progress Progress: unchanged, pain not gone completely, re-examined Progress Note: 08/14/24 15:58 My medical decision making and the assignment of low complexity to this patient's medical issue today is based on review of the patient's past medical h istory, review of the patient's medication list, review of the patient's drug allergy list, history present illness and physical findings on examination. The workup in this patient includes x-ray of the patient's left shoulder and left hip. Differential diagnosis includes but is not limited to contusion, fracture and/or dislocation 08/14/24 16:32 The left shoulder x-ray was interpreted by the radiologist and I reviewed the impression. The impression states compared to films dated 03/20/2024, there are no acute or new abnormalities. There is moderate AC degenerative changes with tiny inferior spurring. The left hip x-ray was interpreted by the radiologist and I reviewed the impression. Compared to 03/20/2024 there are no new or acute abnormalities. There is mild lower lumbar degenerative changes and tiny spurring of the greater trochanter. Counseled pt/family regarding: diagnosis, need for follow-up, rad results Medical Desision Making - Diagnostic Testing Diagnostic test were ordered, analyzed, and reviewed by me: Yes Radiological Interpretation: Reviewed by me, Teleradiologist Report - Risk of complications Low Risk: Low risk of morbidity from additional dx testing or treatment The pt has a mod risk of morbidity or mortality based on: Need for prescription drug management - Departure Departure Disposition: Home Clinical Impression: Fall with no significant injury Condition: Stable Critical Care Time: No Referrals: BROOKLYN FRITZ MD [Primary Care Provider] - Follow up/PCP as directed Additional Instructions: Ice pack to tender areas 3-4 times a day for the next 2 to 3 days. Continue using Tylenol and ibuprofen for pain control. Take your other medications as prescribed.
[2024-08-14 15:48] VITALS: RESP 18; TEMP 97.6
--- NOTE | 2024-08-14 16:27 | XRAY ---
Indication: Pain following fall. Comparison: March 20, 2024 3 view left shoulder unchanged again demonstrating osteopenia, moderate AC degenerative changes with tiny inferior spurring, and left midlung calcified granuloma. No new/acute abnormalities.
--- NOTE | 2024-08-14 16:29 | XRAY ---
Indication: Pain following fall. Comparison: March 20, 2024 AP pelvis and 2 view left hip again demonstrates osteopenia, mild lower lumbar degenerative changes, small right femur neck bone cyst, tiny spurring both greater trochanters, and mild scattered vascular calcifications. No new/acute abnormalities.
[2024-08-14 16:38] VITALS: BP 131/53; PULSE 68; O2SAT 95
== END 2024-08-14 16:42 | disposition home or self-care (01) ==
LOC: ED 15:34
DX: M25.512 Pain in left shoulder (principal); M25.552 Pain in left hip; W19.XXXA Unspecified fall, initial encounter; Z79.899 Other long term (current) drug therapy
CPT/HCPCS: 73030; 73502; 99283

== ENCOUNTER 2024-09-10 11:58 | Observation (INO) | payer MEDICARE, OTHER ==
[2024-09-10 12:47] LABS: Absolute Neutrophil Ct (ANC) 4.42 x10^3/uL (1.78-5.38); BASOPHIL % 0.6 % (0.2-1.2); Basophil (Absolute #) 0.04 x10^3/uL (0.01-0.08); Eosinophil % 1.5 % (0.8-7.0); Hematocrit 41.4 % (40.1-51.0); Hemoglobin 14.1 g/dL (13.7-17.5); IMMATURE GRAN # 0.02 x10^3u/L (0.001-0.031); IMMATURE GRAN % 0.3 % (0.001-0.429); Lymphocyte (Absolute #) 1.52 x10^3/uL (1.32-3.57); Lymphocytes % 23.1 % (21.8-53.1); Mean Cell Volume 85.4 fL (79.0-92.2); Mean Corpuscular Hemoglobin 29.1 pg (25.7-32.2); Mean Corpuscular Hgb Concent. 34.1 g/dL (32.3-36.5); Mean Platelet Volume 9.4 fL (9.4-12.4); Monocyte (Absolute #) 0.47 x10^3/uL (0.30-0.82); Monocytes % 7.2 % (5.3-12.2); Neutrophil % 67.3 % (34.0-67.9); Platelet Count 217 x10^3/uL (163-337); Red Blood Count 4.85 x10^6/uL (4.63-6.08); Red Cell Distribution Width 13.1 % (11.6-14.4); White Blood Count 6.6 x10^3/uL (4.23-9.07)
[2024-09-10 13:11] LABS: ALBUMIN 4.2 g/dL (3.5-5.0); BILIRUBIN,TOTAL 0.4 mg/dL (0.2-1.3); Creatinine 1 1.06 mg/dL (0.66-1.25); EST GLOMERULAR FILTRATION RATE 80.3 ML/MIN; MAGNESIUM 1.7 mg/dL (1.6-2.3); Potassium 4.3 mmol/L (3.5-5.1); Total Protein 6.7 g/dL (6.3-8.2)
--- NOTE | 2024-09-10 13:17 | XRAY ---
Indication: Stroke. Comparison: March 16, 2024 Portable apical lordotic chest again demonstrates normal heart and lungs with a few incidental calcified granulomas. Bony thorax intact. No new/acute findings.
--- NOTE | 2024-09-10 13:20 | XRAY ---
Indication: Numbness. Stroke. Multiple contiguous axial images obtained through the head without contrast. Comparison: May 13, 2023 Again age-appropriate global atrophy and mild periventricular degenerative micro-ischemia bilaterally. Two new remote-appearing lacunar infarcts left basal ganglia. No acute intracranial hemorrhage, abnormal extra-axial fluid collection, or mass effect. Fourth ventricle is midline without hydrocephalus. Bony calvarium intact. Visualized paranasal sinuses and mastoid air cells are clear. Impression: Nonacute senile brain with remote lacunar infarcts left basal ganglia.
[2024-09-10 13:25] LABS: Appearance Clear (Clear); Bacteria None Seen /HPF (None Seen); Bilirubin Negative (Negative); Blood Negative (Negative); Epithelial Cells None Seen /HPF (None Seen); Glucose, Urine Negative (Negative); Hyaline Casts NONE SEEN /LPF (0-2); Ketones Trace (Negative); Leukocyte Esterase Negative (Negative); Nitrite Negative (Negative); Ph 5.5 (4.6-8.0); Protein,Urine Dip 100 (Negative); RBC 0-2 /HPF (0-5); Specific Gravity >=1.030 (1.005-1.030); WBC 0-2 /HPF (0-5)
[2024-09-10] MEDS: BABY ASPIRIN 81 MG CHEW PO ONE (13:35)
[2024-09-10] MEDS ORDERED: BABY ASPIRIN 81 MG CHEW ONE (13:35)
--- NOTE | 2024-09-10 14:00 | ERPHSYRPT ---
- History of Present Illness Time Seen by Provider: 09/10/24 12:03 Source: patient Exam Limitations: no limitations Patient Subjective Stated Complaint: C/O left sided facial and LUE numbness around 0200 today. States he went to bed at 9pm okay but awoke at 0200 with the numbness. Indicates LLE isn't numb but is painful. Triage Nursing Assessment: Patient ambulated back to ER with a normal gait. He is alert and oriented. No SOB. MEZA WNL. NIHH scale completed. Physician History: 59 years old male with history of hypertension, hyperlipidemia, diabetes mellitus, carpal tunnel, GERD, peripheral neuropathy presented in the ER with complains of left facial numbness, soreness and burning sensation in the left upper and lower extremity with some tingly sensation at the fingertips since 2 AM. Patient went to bed normal at 9 PM last night. Patient denies any visual disturbance, difficulty speech or facial droop. Does report some subjective weakness in the left hand. Denies any gait disturbance. No chest pain pa lpitations or shortness of breath. Denies any history of stroke. Allergies/Adverse Reactions: No Known Drug Allergies Allergy (Verified 09/10/24 12:09) Home Medications: Metformin HCl 1000 mg [Glucophage 1000 MG] 1,000 mg PO BID 05/17/15 [History] Nitroglycerin [Nitrostat] 0.4 mg SL Q5MIN PRN MR X 3 PRN 07/03/15 [History] Gabapentin [Neurontin] 600 mg PO BID 07/24/20 [History] Rosuvastatin Calcium [Crestor] 40 mg PO DAILY 07/24/20 [History] Buspirone HCl 5 mg [Buspar 5 mg] 5 mg PO BID 06/04/21 [History] Fluoxetine HCl [Prozac] 10 mg PO DAILY 12/18/22 [History] Insulin Lispro [Humalog Kwikpen U-100] 0 unit SQ UD 12/18/22 [History] PANTOPRAZOLE 40 mg Tablet [Protonix 40MG Tablet] 40 mg PO DAILY 12/18/22 [History] Semaglutide [Ozempic] 2 mg SQ WEEKLY 12/18/22 [History] carvediloL [Carvedilol] 25 mg PO BID 05/07/23 [History] Hx Tetanus, Diphtheria Vaccination/Date Given: No Hx Influenza Vaccination/Date Given: No Hx Pneumococcal Vaccination/Date Given: No Immunizations Up to Date: Yes Travel Risk - International Travel Have you traveled outside of the country in past 3 weeks: No - Emerging Infectious Disease Are you exhibiting symptoms associated with any current EIDs: No - Review of Systems Constitutional: Fatigue Eyes: No Symptoms Ears, Nose, & Throat: No Symptoms Respiratory: No Symptoms Cardiac: No Symptoms Abdominal/Gastrointestinal: No Symptoms Genitourinary Symptoms: No Symptoms Musculoskeletal: No Symptoms Skin: No Symptoms Neurological: Sensory Changes Endocrine: No Symptoms Hematologic/Lymphatic: No Symptoms - Past Medical History Pertinent Past Medical History: Yes Neurological History: Stroke, Seizures, Peripheral Neuropathy ENT History: No Pertinent History Cardiac History: Coronary Artery Disease, High Cholesterol, Hypertension, Peripheral Vascular Disease Respiratory History: Sleep Apnea, Other, COPD Endocrine Medical History: Diabetes Type II Musculoskeletal History: Fractures, Osteoarthritis GI Medical History: GERD, Pancreatitis, Gallbladder Disease, Esophageal Disorder History: No Pertinent History Psycho-Social History: Depression, Anxiety, Panic Disorder Male Reproductive Disorders: Prostate Problems Other Medical History: COVID IN 2020. FX LEFT FOREARM AND ANKLE A CHILD. LOWER EXTREMITY CELLULITIS - Past Surgical History Past Surgical History: Yes Neuro Surgical History: No Pertinent History Cardiac: Cardiac Catheterization Respiratory: No Pertinent History Gastrointestinal: Cholecystectomy Genitourinary: No Pertinent History Musculoskeletal: No Pertinent History Male Surgical History: No Pertinent History Other Surgical History: uvula removed, carpal tunnel right hand Significant Family History: heart disease, diabetes, hypertension - Social History Smoking Status: Former smoker Exposure to second hand smoke: Yes Alcohol Use: None Drug Use: none Patient Lives Alone: No - Social Determinants of Health Will the patient participate in the screening: Yes Do you worry about a steady place to live?: No Do you have any problems with any of the following?: No known problems In the past 12 months,have you had to go without utilities?: No Transportation Issues: No Has anyone in your support network made you feel unsafe?: No Have you or anyone in your house had to go without enough: No - Nursing Vital Signs Nursing Vital Signs: Initial Vital Signs Pulse Rate 66 09/10/24 12:09 Respiratory Rate 17 09/10/24 12:09 Blood Pressure 139/83 09/10/24 12:09 O2 Sat by Pulse Oximetry 96 09/10/24 12:09 Pain Scale Pain Intensity 0 - [place] Coma Scale Best Eye Response (Elena): (4) open spontaneously Best Verbal Response ([place]): (5) oriented Best Motor Response ([place]): (6) obeys commands [place] Total: 15 - Physical Exam General Appearance: no apparent distress, alert Eye Exam: bilateral eye: normal inspection, PERRL, EOMI Ears, Nose, Throat Exam: normal ENT inspection, pharynx normal, moist mucous membranes Neck Exam: normal inspection, non-tender, supple, full range of motion Respiratory: normal breath sounds, lungs clear Cardiovascular: regular rate/rhythm, normal heart sounds Back Exam: normal inspection, normal range of motion Extremity Exam: normal inspection, normal range of motion Mental Status: alert, oriented x 3, 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 Exam: normal hearing, normal speech, PERRL Coordination/Gait: normal finger to nose, normal gait, normal cerebellar function Motor/Sensory: no motor deficit, no pronator drift, negative Babinski's sign, No no sensory deficit (Decreased sensations of fine touch in the left face, left upper and lower extremities.) DTR: bicep (R): 2+, bicep (L): 2+, knee (R): 2+, knee (L): 2+ Skin Exam: normal color SpO2 Interpretation: normal SpO2: 97 O2 Delivery: Room Air - Course EKG Interpreted by Me: RATE (60), Sinus Rhythm, NORMAL AXIS, NORMAL INTERVALS, N ORMAL QRS, Other (Nonspecific T wave changes, multifocal PVCs) Ordered Tests: Active Orders 24 hr Category Date Time Status EKG-ER Only STAT Care 09/10/24 12:22 Active NPO (ED) STAT Care 09/10/24 12:21 Active CHEST 1 VIEW (PORTABLE) Stat Exams 09/10/24 12:21 Completed HEAD WITHOUT CONTRAST [CT] Stat Exams 09/10/24 12:16 Completed CBC W DIFF Stat Lab 09/10/24 12:45 Completed CMP Stat Lab 09/10/24 12:45 Completed MAGNESIUM Stat Lab 09/10/24 12:45 Completed NT PRO BNPII Stat Lab 09/10/24 12:45 Completed TROPONIN Q3H Lab 09/10/24 12:45 Completed TROPONIN Q3H Lab 09/10/24 15:30 Ordered TROPONIN Q3H Lab 09/10/24 18:30 Ordered TROPONIN Q3H Lab 09/10/24 21:30 Ordered UA W/RFX UR CULTURE Stat Lab 09/10/24 12:21 Completed Transfer Order Routine Transfer 09/10/24 Ordered Medication Summary Discontinued Medications Generic Name Dose Route Start Last Admin Trade Name Uriel PRN Reason Stop Dose Admin Aspirin 324 mg 09/10/24 13:28 09/10/24 13:35 Aspirin 81 Mg Tab.Chew PO 09/10/24 13:29 324 mg STAT ONE Administration Aspirin Confirm 09/10/24 13:35 Aspirin 81 Mg Tab.Chew Administered 09/10/24 13:36 Dose 324 mg .ROUTE .STK-MED ONE Lab/Rad Data: Laboratory Result Diagrams 09/10/24 12:45 09/10/24 12:45 Laboratory Results 09/10/24 09/10/24 09/10/24 Range/Units 12:45 12:45 12:45 WBC 6.6 (4.23-9.07) x10^3/uL RBC 4.85 (4.63-6.08) x10^6/uL Hgb 14.1 (13.7-17.5) g/dL Hct 41.4 (40.1-51.0) % MCV 85.4 (79.0-92.2) fL MCH 29.1 (25.7-32.2) pg MCHC 34.1 (32.3-36.5) g/dL RDW 13.1 (11.6-14.4) % Plt Count 217 (163-337) x10^3/uL MPV 9.4 (9.4-12.4) fL Gran % 67.3 (34.0-67.9) % Immature Gran % (Auto) 0.3 (0.001-0.429) % Nucleat RBC Rel Count 0.0 (0.00-0.2) % Eos # (Auto) 0.10 (0.04-0.54) x10^3/uL Immature Gran # (Auto) 0.02 (0.001-0.031) x10^3u/L Absolute Lymphs (auto) 1.52 (1.32-3.57) x10^3/uL Absolute Monos (auto) 0.47 (0.30-0.82) x10^3/uL Absolute Nucleated RBC 0.00 (0.00-0.012) x10^3u/L Lymphocytes % 23.1 (21.8-53.1) % Monocytes % 7.2 (5.3-12.2) % Eosinophils % 1.5 (0.8-7.0) % Basophils % 0.6 (0.2-1.2) % Absolute Granulocytes 4.42 (1.78-5.38) x10^3/uL Basophils # 0.04 (0.01-0.08) x10^3/uL Sodium 139 (135-145) mmol/L Potassium 4.3 (3.5-5.1) mmol/L Chloride 103 (98-107) mmol/L Carbon Dioxide 27 (22-30) mmol/L Anion Gap 14.0 (5-15) MEQ/L BUN 20 (9-20) mg/dL Creatinine 1.06 (0.66-1.25) mg/dL Estimated GFR 80.3 ML/MIN Glucose 123 H (74-106) mg/dL Calcium 10.0 (8.4-10.2) mg/dL Magnesium 1.7 (1.6-2.3) mg/dL Total Bilirubin 0.40 (0.2-1.3) mg/dL AST 20 (17-59) U/L ALT 27 (0-50) U/L Alkaline Phosphatase 44 (38-126) U/L Troponin I < 0.012 (0.000-0.033) ng/mL NT-Pro-B Natriuret Pep 254 (<300) pg/mL Serum Total Protein 6.7 (6.3-8.2) g/dL Albumin 4.2 (3.5-5.0) g/dL Urine Color (Yellow) Urine Appearance (Clear) Urine pH (4.6-8.0) Ur Specific [place] (1.005-1.030) Urine Protein (Negative) Urine Glucose (UA) (Negative) mg/dL Urine Ketones (Negative) Urine Blood (Negative) Urine Nitrite (Negative) Urine Bilirubin (Negative) Urine Urobilinogen (0.2) mg/dL Ur Leukocyte Esterase (Negative) U Hyaline Cast (Auto) (0-2) /LPF Urine Microscopic RBC (0-5) /HPF Urine Microscopic WBC (0-5) /HPF Ur Epithelial Cells (None Seen) /HPF Urine Bacteria (None Seen) /HPF Urine Culture Reflexed (NO) 09/10/24 Range/Units 12:21 WBC (4.23-9.07) x10^3/uL RBC (4.63-6.08) x10^6/uL Hgb (13.7-17.5) g/dL Hct (40.1-51.0) % MCV (79.0-92.2) fL MCH (25.7-32.2) pg MCHC (32.3-36.5) g/dL RDW (11.6-14.4) % Plt Count (163-337) x10^3/uL MPV (9.4-12.4) fL Gran % (34.0-67.9) % Immature Gran % (Auto) (0.001-0.429) % Nucleat RBC Rel Count (0.00-0.2) % Eos # (Auto) (0.04-0.54) x10^3/uL Immature Gran # (Auto) (0.001-0.031) x10^3u/L Absolute Lymphs (auto) (1.32-3.57) x10^3/uL Absolute Monos (auto) (0.30-0.82) x10^3/uL Absolute Nucleated RBC (0.00-0.012) x10^3u/L Lymphocytes % (21.8-53.1) % Monocytes % (5.3-12.2) % Eosinophils % (0.8-7.0) % Basophils % (0.2-1.2) % Absolute Granulocytes (1.78-5.38) x10^3/uL Basophils # (0.01-0.08) x10^3/uL Sodium (135-145) mmol/L Potassium (3.5-5.1) mmol/L Chloride (98-107) mmol/L Carbon Dioxide (22-30) mmol/L Anion Gap (5-15) MEQ/L BUN (9-20) mg/dL Creatinine (0.66-1.25) mg/dL Estimated GFR ML/MIN Glucose (74-106) mg/dL Calcium (8.4-10.2) mg/dL Magnesium (1.6-2.3) mg/dL Total Bilirubin (0.2-1.3) mg/dL AST (17-59) U/L ALT (0-50) U/L Alkaline Phosphatase (38-126) U/L Troponin I (0.000-0.033) ng/mL NT-Pro-B Natriuret Pep (<300) pg/mL Serum Total Protein (6.3-8.2) g/dL Albumin (3.5-5.0) g/dL Urine Color Dark Yellow (Yellow) Urine Appearance Clear (Clear) Urine pH 5.5 (4.6-8.0) Ur Specific [place] >=1.030 A (1.005-1.030) Urine Protein 100 A (Negative) Urine Glucose (UA) Negative (Negative) mg/dL Urine Ketones Trace A (Negative) Urine Blood Negative (Negative) Urine Nitrite Negative (Negative) Urine Bilirubin Negative (Negative) Urine Urobilinogen 1.0 A (0.2) mg/dL Ur Leukocyte Esterase Negative (Negative) U Hyaline Cast (Auto) NONE SEEN (0-2) /LPF Urine Microscopic RBC 0-2 (0-5) /HPF Urine Microscopic WBC 0-2 (0-5) /HPF Ur Epithelial Cells None Seen (None Seen) /HPF Urine Bacteria None Seen (None Seen) /HPF Urine Culture Reflexed NO (NO) - Progress Progress: unchanged Progress Note: 09/10/24 13:57 59 years old is evaluated in ER for strokelike symptoms since 2 AM when he woke up. Patient went to bed normal at 9 PM last night. I did not appreciate any focal weakness but does have some decreased sensations of fine touch on the left side. The EKG is sinus rhythm with PVCs but no acute ST elevations. He is made stroke activated and prompt CT head is obtained which is negative for any acute finding but does have some old/remote infarcts. Patient denies any history of stroke in the past. Normal white count, chemistries fairly unremarkable and negative troponins. Chest x-ray negative for any acute cardiopulmonary findings. [facility] neurology consult is obtained who has seen patient and recommended observation telemetry admission with stroke workup including carotid Doppler, MRI, echo and starting on aspirin/statins/risk stratification. I have shared the results of workup with patient and plan of admission which he understands and agrees. Discussed with Dr. Kenny and patient is being admitted to hospitalist service. Discussed with : Marilee, Other ([facility] neurologist/Dr. Kenny hospitalist) Counseled pt/family regarding: lab results, diagnosis, need for follow-up, rad results Medical Desision Making - Discussion of managment Care discussed with:: specialist Reviewed:: Test results Agreed on:: Treatment plan, place in obs ([facility] neurologist/Dr. Kenny hospitalist) Will see patient: in hospital - Diagnostic Testing Diagnostic test were ordered, analyzed, and reviewed by me: Yes Radiological Interpretation: Reviewed by me - Risk of complications The pt has a high risk of morbidity or mortality based on: Decision regarding hospitilization or escalation of hosp level of care - Departure Departure Disposition: Observation Clinical Impression: Left facial numbness, Stroke-like symptoms Condition: Stable Critical Care Time: No Referrals: BROOKLYN FRITZ MD [Primary Care Provider] - Follow up/PCP as directed
--- NOTE | 2024-09-10 16:25 | PCM.HP ---
History of Present Illness - Chief Complaint Chief Complaint: L FACIAL NUMBNESS Date: 09/10/24 History of Present Illness: is a 59 year old male with PMHX of hypertension, hyperlipidemia, diabetes mellitus, carpal tunnel, GERD, and peripheral neuropathy. He presented in the ER with complains of left facial numbness, soreness and burning sensation in the left upper and lower extremity with some tingly sensation at the fingertips since 2 AM. Patient went to bed normal at 9 PM last night. Patient denies any visual disturbance, difficulty speech or facial droop. Does report some subjective weakness in the left hand in ER. Denies any gait disturbance. No chest pain palpitations or shortness of breath. Denies any history of stroke. CT head shows remote lacunar infarcts left basal ganglia. He states all numbness is gone since admission but has has left upper thigh pain. He feels this is r/t his knee left knee in which he has chronic pain. Neurology consulted in the ER and MRI recommended. He does have some curent heartburn and requesting tums. Other than that he denies any concerns at this time. . - Review of Systems Constitutional: No Fever, No Chills Eyes: No Symptoms Ears, Nose, & Throat: No Symptoms Respiratory: No Cough, No Short Of Breath Cardiac: No Chest Pain, No Edema, No Syncope Abdominal/Gastrointestinal: No Abdominal Pain, No Nausea, No Vomiting, No Diarrhea Genitourinary Symptoms: No Dysuria Musculoskeletal: Myalgias (left thigh), No Back Pain, No Neck Pain Skin: No Rash Neurological: No Dizziness, No Focal Weakness, No Sensory Changes Psychological: No Symptoms Endocrine: No Symptoms Hematologic/Lymphatic: No Symptoms Immunological/Allergic: No Symptoms Medications & Allergies Home Medications: Home Medication List Metformin HCl 1000 mg [Glucophage 1000 MG] 1,000 mg PO BID 05/17/15 [History Confirmed 09/10/24] Nitroglycerin [Nitrostat] 0.4 mg SL Q5MIN PRN MR X 3 PRN 07/03/15 [History Confirmed 09/10/24] Gabapentin [Neurontin] 600 mg PO BID 07/24/20 [History Confirmed 09/10/24] Rosuvastatin Calcium [Crestor] 40 mg PO DAILY 07/24/20 [History Confirmed 09/10/24] Buspirone HCl 5 mg [Buspar 5 mg] 5 mg PO BID 06/04/21 [History Confirmed 09/10/24] Fluoxetine HCl [Prozac] 10 mg PO DAILY 12/18/22 [History Confirmed 09/10/24] Insulin Lispro [Humalog Kwikpen U-100] 0 unit SQ UD 12/18/22 [History Confirmed 09/10/24] PANTOPRAZOLE 40 mg Tablet [Protonix 40MG Tablet] 40 mg PO DAILY 12/18/22 [History Confirmed 09/10/24] carvediloL [Carvedilol] 25 mg PO BID 05/07/23 [History Confirmed 09/10/24] Docusate Sodium 100 mg [Docusate Sodium 100 MG] 100 mg PO BIDPRN PRN 30 Days #60 cap 06/27/23 [Rx Confirmed 09/10/24] Amlodipine Besylate 5 mg [Norvasc 5 mg] 5 mg PO DAILY 09/10/24 [History Confirmed 09/10/24] Ergocalciferol (Vitamin D2) [Vitamin D2] 1,250 mcg PO WEEKLY 09/10/24 [History C onfirmed 09/10/24] Lisinopril 10 mg [Zestril 10 MG] 10 mg PO DAILY 09/10/24 [History Confirmed 09/10/24] Loperamide HCl [Imodium A-D] 4 mg PO UD PRN 09/10/24 [History Confirmed 09/10/24] Tamsulosin HCl 0.4 mg [Flomax 0.4 MG] 0.4 mg PO DAILY 09/10/24 [History Confirmed 09/10/24] Tirzepatide [Mounjaro] 5 mg SQ WEEKLY 09/10/24 [History Confirmed 09/10/24] Tizanidine HCl 2 mg PO QHS PRN 09/10/24 [History Confirmed 09/10/24] Allergies/Adverse Reactions: Allergies Allergy/AdvReac Type Severity Reaction Status Date / Time No Known Drug Allergies Allergy Verified 09/10/24 12:09 - Past Medical History Past Medical History: Yes Neurological History: Stroke, Seizures, Peripheral Neuropathy ENT History: No Pertinent History Cardiac History: Coronary Artery Disease, High Cholesterol, Hypertension, Peripheral Vascular Disease Respiratory History: Sleep Apnea, Other, COPD Endocrine Medical History: Diabetes Type II Musculoskelatal History: Fractures, Osteoarthritis GI Medical History: GERD, Pancreatitis, Gallbladder Disease, Esophageal Disorder History: No Pertinent History Pyscho-Social History: Depression, Anxiety, Panic Disorder Male Reproductive Disorders: Prostate Problems Comment: COVID IN 2020. FX LEFT FOREARM AND ANKLE A CHILD. LOWER EXTREMITY CELLULITIS - Past Surgical History Past Surgical History: Yes Neuro Surgical History: No Pertinent History Cardiac History: Cardiac Catheterization Respiratory Surgery: No Pertinent History GI Surgical History: Cholecystectomy Genitourinary Surgical Hx: No Pertinent History Musculskeletal Surgical Hx: No Pertinent History Male Surgical History: No Pertinent History Other Surgical History: uvula removed, carpal tunnel right hand Significant Family History: heart disease, diabetes, hypertension - Social History Smoking Status: Former smoker Exposure to second hand smoke: Yes Alcohol: None Drug Use: none - Social Determinants of Health Will the patient participate in the screening: Yes Do you worry about a steady place to live?: No Do you have any problems with any of the following?: No known problems In the past 12 months,have you had to go without utilities?: No Have you or anyone in your house had to go without enough: No Transportation Issues: No Has anyone in your support network made you feel unsafe?: No Does the patient want assistance with any of the above?: No - Physical Exam Vital Signs: Vital Signs - 24 hr Temp Pulse Resp BP BP Pulse Ox 09/10/24 15:13 97 09/10/24 15:11 97.3 F 62 18 187/87 96 09/10/24 14:31 62 20 102/85 95 09/10/24 14:00 61 14 152/117 95 09/10/24 13:31 61 18 143/97 97 09/10/24 13:19 60 17 152/90 95 09/10/24 13:10 60 18 97 09/10/24 13:02 63 18 95 09/10/24 12:39 60 16 145/75 97 09/10/24 12:10 97.3 F 63 18 139/83 98 09/10/24 12:09 66 17 139/83 96 General Appearance: no apparent distress, alert, obese Neurologic Exam: alert, oriented x 3, cooperative, county commissioner II-XII nml as tested, normal mood/affect, nml cerebellar function, nml station & gait, sensation nml, No motor deficits Eye Exam: PERRL/EOMI, eyes nml inspection Ears, Nose, Throat Exam: normal ENT inspection, TMs normal, pharynx normal, moist mucous membranes Neck Exam: normal inspection, non-tender, supple, full range of motion Respiratory Exam: normal breath sounds, lungs clear, No respiratory distress Cardiovascular Exam: regular rate/rhythm, normal heart sounds, normal peripheral pulses Gastrointestinal/Abdomen Exam: soft, normal bowel sounds, No tenderness, No mass Back Exam: normal inspection, normal range of motion, No CVA tenderness, No vertebral tenderness Extremity Exam: normal inspection, normal range of motion, pelvis stable Skin Exam: normal color, warm, dry, No rash Lymphatic Exam: No adenopathy Results - Labs Lab/Micro Results: Lab Results-Last 24 Hours 09/10/24 09/10/24 09/10/24 Range/Units 12:21 12:45 12:45 WBC 6.6 (4.23-9.07) x10^3/uL RBC 4.85 (4.63-6.08) x10^6/uL Hgb 14.1 (13.7-17.5) g/dL Hct 41.4 (40.1-51.0) % MCV 85.4 (79.0-92.2) fL MCH 29.1 (25.7-32.2) pg MCHC 34.1 (32.3-36.5) g/dL RDW 13.1 (11.6-14.4) % Plt Count 217 (163-337) x10^3/uL MPV 9.4 (9.4-12.4) fL Gran % 67.3 (34.0-67.9) % Immature Gran % (Auto) 0.3 (0.001-0.429) % Nucleat RBC Rel Count 0.0 (0.00-0.2) % Eos # (Auto) 0.10 (0.04-0.54) x10^3/uL Immature Gran # (Auto) 0.02 (0.001-0.031) x10^3u/L Absolute Lymphs (auto) 1.52 (1.32-3.57) x10^3/uL Absolute Monos (auto) 0.47 (0.30-0.82) x10^3/uL Absolute Nucleated RBC 0.00 (0.00-0.012) x10^3u/L Lymphocytes % 23.1 (21.8-53.1) % Monocytes % 7.2 (5.3-12.2) % Eosinophils % 1.5 (0.8-7.0) % Basophils % 0.6 (0.2-1.2) % Absolute Granulocytes 4.42 (1.78-5.38) x10^3/uL Basophils # 0.04 (0.01-0.08) x10^3/uL Sodium 139 (135-145) mmol/L Potassium 4.3 (3.5-5.1) mmol/L Chloride 103 (98-107) mmol/L Carbon Dioxide 27 (22-30) mmol/L Anion Gap 14.0 (5-15) MEQ/L BUN 20 (9-20) mg/dL Creatinine 1.06 (0.66-1.25) mg/dL Estimated GFR 80.3 ML/MIN Glucose 123 H (74-106) mg/dL Calcium 10.0 (8.4-10.2) mg/dL Magnesium 1.7 (1.6-2.3) mg/dL Total Bilirubin 0.40 (0.2-1.3) mg/dL AST 20 (17-59) U/L ALT 27 (0-50) U/L Alkaline Phosphatase 44 (38-126) U/L Troponin I (0.000-0.033) ng/mL NT-Pro-B Natriuret Pep 254 (<300) pg/mL Serum Total Protein 6.7 (6.3-8.2) g/dL Albumin 4.2 (3.5-5.0) g/dL Urine Color Dark Yellow (Yellow) Urine Appearance Clear (Clear) Urine pH 5.5 (4.6-8.0) Ur Specific [place] >=1.030 A (1.005-1.030) Urine Protein 100 A (Negative) Urine Glucose (UA) Negative (Negative) mg/dL Urine Ketones Trace A (Negative) Urine Blood Negative (Negative) Urine Nitrite Negative (Negative) Urine Bilirubin Negative (Negative) Urine Urobilinogen 1.0 A (0.2) mg/dL Ur Leukocyte Esterase Negative (Negative) U Hyaline Cast (Auto) NONE SEEN (0-2) /LPF Urine Microscopic RBC 0-2 (0-5) /HPF Urine Microscopic WBC 0-2 (0-5) /HPF Ur Epithelial Cells None Seen (None Seen) /HPF Urine Bacteria None Seen (None Seen) /HPF Urine Culture Reflexed NO (NO) 09/10/24 Range/Units 12:45 WBC (4.23-9.07) x10^3/uL RBC (4.63-6.08) x10^6/uL Hgb (13.7-17.5) g/dL Hct (40.1-51.0) % MCV (79.0-92.2) fL MCH (25.7-32.2) pg MCHC (32.3-36.5) g/dL RDW (11.6-14.4) % Plt Count (163-337) x10^3/uL MPV (9.4-12.4) fL Gran % (34.0-67.9) % Immature Gran % (Auto) (0.001-0.429) % Nucleat RBC Rel Count (0.00-0.2) % Eos # (Auto) (0.04-0.54) x10^3/uL Immature Gran # (Auto) (0.001-0.031) x10^3u/L Absolute Lymphs (auto) (1.32-3.57) x10^3/uL Absolute Monos (auto) (0.30-0.82) x10^3/uL Absolute Nucleated RBC (0.00-0.012) x10^3u/L Lymphocytes % (21.8-53.1) % Monocytes % (5.3-12.2) % Eosinophils % (0.8-7.0) % Basophils % (0.2-1.2) % Absolute Granulocytes (1.78-5.38) x10^3/uL Basophils # (0.01-0.08) x10^3/uL Sodium (135-145) mmol/L Potassium (3.5-5.1) mmol/L Chloride (98-107) mmol/L Carbon Dioxide (22-30) mmol/L Anion Gap (5-15) MEQ/L BUN (9-20) mg/dL Creatinine (0.66-1.25) mg/dL Estimated GFR ML/MIN Glucose (74-106) mg/dL Calcium (8.4-10.2) mg/dL Magnesium (1.6-2.3) mg/dL Total Bilirubin (0.2-1.3) mg/dL AST (17-59) U/L ALT (0-50) U/L Alkaline Phosphatase (38-126) U/L Troponin I < 0.012 (0.000-0.033) ng/mL NT-Pro-B Natriuret Pep (<300) pg/mL Serum Total Protein (6.3-8.2) g/dL Albumin (3.5-5.0) g/dL Urine Color (Yellow) Urine Appearance (Clear) Urine pH (4.6-8.0) Ur Specific [place] (1.005-1.030) Urine Protein (Negative) Urine Glucose (UA) (Negative) mg/dL Urine Ketones (Negative) Urine Blood (Negative) Urine Nitrite (Negative) Urine Bilirubin (Negative) Urine Urobilinogen (0.2) mg/dL Ur Leukocyte Esterase (Negative) U Hyaline Cast (Auto) (0-2) /LPF Urine Microscopic RBC (0-5) /HPF Urine Microscopic WBC (0-5) /HPF Ur Epithelial Cells (None Seen) /HPF Urine Bacteria (None Seen) /HPF Urine Culture Reflexed (NO) - Radiology Impressions Radiology Exams & Impressions: Radiology Procedures Category Date Time Status CHEST 1 VIEW (PORTABLE) Stat Exams 09/10/24 12:21 Completed HEAD WITHOUT CONTRAST [CT] Stat Exams 09/10/24 12:16 Completed Assessment/Plan (1) TIA (transient ischemic attack) Current Visit: Yes Status: Acute Assessment & Plan: - Neurology consulted in ER - CT head shows: Impression: Nonacute senile brain with remote lacunar infarcts left basal ganglia. - PT/OT/ST - ASA 81 mg daily - Atorvastain 80mg daily - Echo - Tele - EKG - Carotid duplex - neuro checks Q4 - Lipid panel - TSH Code(s): G45.9 - TRANSIENT CEREBRAL ISCHEMIC ATTACK, UNSPECIFIED (2) Left facial numbness Current Visit: Yes Status: Resolved Assessment & Plan: - resolved since admission - UDS - CBC, CMP reviewed- non-concerning - CXR: Portable apical lordotic chest again demonstrates normal heart and lungs with a few incidental calcified granulomas. Bony thorax intact. No new/acute findings. Code(s): R20.0 - ANESTHESIA OF SKIN (3) GERD (gastroesophageal reflux disease) Current Visit: No Status: Chronic Assessment & Plan: - Continue protonix - Tums PRN Code(s): K21.9 - GASTRO-ESOPHAGEAL REFLUX DISEASE WITHOUT ESOPHAGITIS (4) HLD (hyperlipidemia) Current Visit: No Status: Chronic Assessment & Plan: - Atorvastatin 80mg started - home med stopped Code(s): E78.5 - HYPERLIPIDEMIA, UNSPECIFIED (5) Diabetes Current Visit: No Status: Chronic Qualifiers: Diabetes mellitus type: type 2 Diabetes mellitus emt intermediate insulin use: with emt intermediate use Diabetes mellitus complication status: with neurologic complications Diabetes mellitus complication detail: with unspecified neuropathy Qualified Code(s): E11.40 - Type 2 diabetes mellitus with diabetic neuropathy, unspecified; Z79.4 - prison (current) use of insulin Assessment & Plan: - Continue metformin - A1C pending - accuchecks ac/hs - Insulin low dose s/s Code(s): E11.9 - TYPE 2 DIABETES MELLITUS WITHOUT COMPLICATIONS (6) Essential hypertension Current Visit: No Status: Chronic Assessment & Plan: - Continue home meds Code(s): I10 - ESSENTIAL (PRIMARY) HYPERTENSION (7) Peripheral neuropathy Current Visit: Yes Status: Chronic Assessment & Plan: - continue gabapentin Code(s): G62.9 - POLYNEUROPATHY, UNSPECIFIED (8) Depression with anxiety Current Visit: Yes Status: Chronic Assessment & Plan: - Continue buspar VTE: SCD's PPI: Protonix Next of KIN: Lola Malin, D/C plan: 1-2 days Code status: Full Code(s): F41.8 - OTHER SPECIFIED ANXIETY DISORDERS
[2024-09-10] MEDS ORDERED: NON-FORMULARY ITEM (Tizanidine Hcl [Tizanidine Hcl] 2 MG Capsule) PO PRN (16:53)
[2024-09-10] MEDS ORDERED: Docusate Sodium 100 MG PO PRN (16:53)
[2024-09-10] MEDS ORDERED: HUMALOG SQ PRN (16:58)
[2024-09-10] MEDS ORDERED: Tums EX 750 MG PO PRN (17:00)
[2024-09-10] MEDS ORDERED: Zanaflex 4 MG PO PRN ×2 (17:18)
[2024-09-10] MEDS: LIPITOR 40MG PO STA (17:22)
[2024-09-10] MEDS: Tums EX 750 MG PO ONE (17:23)
[2024-09-10 18:54] LABS: Amphetamine,Urine NEGATIVE (NEGATIVE); Barbiturate,Urine NEGATIVE (NEGATIVE); Benzodiazepine,Urine NEGATIVE (NEGATIVE); Cocaine,Urine NEGATIVE (NEGATIVE); Methadone,Urine NEGATIVE (NEGATIVE); Opiate,Urine NEGATIVE (NEGATIVE); PCP,Urine NEGATIVE (NEGATIVE)
[2024-09-10 18:59] LABS: THC,Urine NEGATIVE (NEGATIVE)
[2024-09-10] MEDS ORDERED: NON-FORMULARY ITEM (Carvedilol [Carvedilol] 25 MG Tablet) PO SCH (22:00)
[2024-09-10] MEDS ORDERED: METFORMIN HCL 1000 MG PO SCH (22:00)
[2024-09-10] MEDS: NEURONTIN PO SCH (23:06)
[2024-09-10] MEDS: COREG 12.5 MG PO SCH (23:06)
[2024-09-10] MEDS: BUSPAR 5 MG PO SCH (23:07)
[2024-09-11 04:51] LABS: Hemoglobin 13.1 g/dL (13.7-17.5); Mean Cell Volume 83.2 fL (79.0-92.2); Mean Corpuscular Hemoglobin 28.7 pg (25.7-32.2); Mean Corpuscular Hgb Concent. 34.5 g/dL (32.3-36.5); Mean Platelet Volume 9.6 fL (9.4-12.4); Platelet Count 217 x10^3/uL (163-337); Red Blood Count 4.57 x10^6/uL (4.63-6.08); Red Cell Distribution Width 13.1 % (11.6-14.4)
--- NOTE | 2024-09-11 07:09 | PCM.NOTE ---
Date and Time: 09/11/24703 Subjective Assessment: Mr. Mckeon is a 59 year old male with a pmhx of hypertension, hyperlipidemia, diabetes mellitus, carpal tunnel, GERD, and peripheral neuropathy who presented 09/10/24 with complaints of numbness to the left face and burning/tingling sensation to the left upper extremity. CXR with no acute findings. CT head shows remote lacunar infarcts left basal ganglia. He states all numbness is gone since admission but has has left upper thigh pain. He feels this is r/t his knee left knee in which he has chronic pain. Neurology consulted in the ER and MRI recommended. Lab findings unremarkable. Objective Data Vital Signs: Vital Signs - 24 hr Temp Pulse Resp BP BP Pulse Ox 09/11/24 04:00 97.3 F 59 L 19 134/61 98 09/10/24 23:39 97.5 F 65 20 142/73 96 09/10/24 20:00 97.3 F 67 23 116/52 94 L 09/10/24 15:13 97 09/10/24 15:11 97.3 F 62 18 187/87 96 09/10/24 14:31 62 20 102/85 95 09/10/24 14:00 61 14 152/117 95 09/10/24 13:31 61 18 143/97 97 09/10/24 13:19 60 17 152/90 95 09/10/24 13:10 60 18 97 09/10/24 13:02 63 18 95 09/10/24 12:39 60 16 145/75 97 09/10/24 12:10 97.3 F 63 18 139/83 98 09/10/24 12:09 66 17 139/83 96 Pain Assessment - Last Documented Pain Intensity 0 Intake and Output: Intake & Output 09/08/24 09/09/24 09/10/24 09/11/24 11:59 11:59 11:59 11:59 Intake Total 3360 Balance 3360 Weight 123.8 kg Lab Results: Lab Results-Last 24 Hours 09/10/24 09/10/24 09/10/24 Range/Units 12:21 12:45 12:45 WBC 6.6 (4.23-9.07) x10^3/uL RBC 4.85 (4.63-6.08) x10^6/uL Hgb 14.1 (13.7-17.5) g/dL Hct 41.4 (40.1-51.0) % MCV 85.4 (79.0-92.2) fL MCH 29.1 (25.7-32.2) pg MCHC 34.1 (32.3-36.5) g/dL RDW 13.1 (11.6-14.4) % Plt Count 217 (163-337) x10^3/uL MPV 9.4 (9.4-12.4) fL Gran % 67.3 (34.0-67.9) % Immature Gran % (Auto) 0.3 (0.001-0.429) % Nucleat RBC Rel Count 0.0 (0.00-0.2) % Eos # (Auto) 0.10 (0.04-0.54) x10^3/uL Immature Gran # (Auto) 0.02 (0.001-0.031) x10^3u/L Absolute Lymphs (auto) 1.52 (1.32-3.57) x10^3/uL Absolute Monos (auto) 0.47 (0.30-0.82) x10^3/uL Absolute Nucleated RBC 0.00 (0.00-0.012) x10^3u/L Lymphocytes % 23.1 (21.8-53.1) % Monocytes % 7.2 (5.3-12.2) % Eosinophils % 1.5 (0.8-7.0) % Basophils % 0.6 (0.2-1.2) % Absolute Granulocytes 4.42 (1.78-5.38) x10^3/uL Basophils # 0.04 (0.01-0.08) x10^3/uL Sodium 139 (135-145) mmol/L Potassium 4.3 (3.5-5.1) mmol/L Chloride 103 (98-107) mmol/L Carbon Dioxide 27 (22-30) mmol/L Anion Gap 14.0 (5-15) MEQ/L BUN 20 (9-20) mg/dL Creatinine 1.06 (0.66-1.25) mg/dL Estimated GFR 80.3 ML/MIN Glucose 123 H (74-106) mg/dL Hemoglobin A1c (4.5-6.0) % Calcium 10.0 (8.4-10.2) mg/dL Magnesium 1.7 (1.6-2.3) mg/dL Total Bilirubin 0.40 (0.2-1.3) mg/dL AST 20 (17-59) U/L ALT 27 (0-50) U/L Alkaline Phosphatase 44 (38-126) U/L Troponin I (0.000-0.033) ng/mL NT-Pro-B Natriuret Pep 254 (<300) pg/mL Serum Total Protein 6.7 (6.3-8.2) g/dL Albumin 4.2 (3.5-5.0) g/dL Urine Color Dark Yellow (Yellow) Urine Appearance Clear (Clear) Urine pH 5.5 (4.6-8.0) Ur Specific [place] >=1.030 A (1.005-1.030) Urine Protein 100 A (Negative) Urine Glucose (UA) Negative (Negative) mg/dL Urine Ketones Trace A (Negative) Urine Blood Negative (Negative) Urine Nitrite Negative (Negative) Urine Bilirubin Negative (Negative) Urine Urobilinogen 1.0 A (0.2) mg/dL Ur Leukocyte Esterase Negative (Negative) U Hyaline Cast (Auto) NONE SEEN (0-2) /LPF Urine Microscopic RBC 0-2 (0-5) /HPF Urine Microscopic WBC 0-2 (0-5) /HPF Ur Epithelial Cells None Seen (None Seen) /HPF Urine Bacteria None Seen (None Seen) /HPF Urine Culture Reflexed NO (NO) Urine Opiates Level (NEGATIVE) Ur Methadone (NEGATIVE) Urine Barbiturates (NEGATIVE) Ur Phencyclidine (PCP) (NEGATIVE) Urine Amphetamine (NEGATIVE) U Benzodiazepine Level (NEGATIVE) Urine Cocaine (NEGATIVE) Urine Marijuana (THC) (NEGATIVE) 09/10/24 09/10/24 09/10/24 Range/Units 12:45 12:45 15:55 WBC (4.23-9.07) x10^3/uL RBC (4.63-6.08) x10^6/uL Hgb (13.7-17.5) g/dL Hct (40.1-51.0) % MCV (79.0-92.2) fL MCH (25.7-32.2) pg MCHC (32.3-36.5) g/dL RDW (11.6-14.4) % Plt Count (163-337) x10^3/uL MPV (9.4-12.4) fL Gran % (34.0-67.9) % Immature Gran % (Auto) (0.001-0.429) % Nucleat RBC Rel Count (0.00-0.2) % Eos # (Auto) (0.04-0.54) x10^3/uL Immature Gran # (Auto) (0.001-0.031) x10^3u/L Absolute Lymphs (auto) (1.32-3.57) x10^3/uL Absolute Monos (auto) (0.30-0.82) x10^3/uL Absolute Nucleated RBC (0.00-0.012) x10^3u/L Lymphocytes % (21.8-53.1) % Monocytes % (5.3-12.2) % Eosinophils % (0.8-7.0) % Basophils % (0.2-1.2) % Absolute Granulocytes (1.78-5.38) x10^3/uL Basophils # (0.01-0.08) x10^3/uL Sodium (135-145) mmol/L Potassium (3.5-5.1) mmol/L Chloride (98-107) mmol/L Carbon Dioxide (22-30) mmol/L Anion Gap (5-15) MEQ/L BUN (9-20) mg/dL Creatinine (0.66-1.25) mg/dL Estimated GFR ML/MIN Glucose (74-106) mg/dL Hemoglobin A1c 6.88 H (4.5-6.0) % Calcium (8.4-10.2) mg/dL Magnesium (1.6-2.3) mg/dL Total Bilirubin (0.2-1.3) mg/dL AST (17-59) U/L ALT (0-50) U/L Alkaline Phosphatase (38-126) U/L Troponin I < 0.012 < 0.012 (0.000-0.033) ng/mL NT-Pro-B Natriuret Pep (<300) pg/mL Serum Total Protein (6.3-8.2) g/dL Albumin (3.5-5.0) g/dL Urine Color (Yellow) Urine Appearance (Clear) Urine pH (4.6-8.0) Ur Specific [place] (1.005-1.030) Urine Protein (Negative) Urine Glucose (UA) (Negative) mg/dL Urine Ketones (Negative) Urine Blood (Negative) Urine Nitrite (Negative) Urine Bilirubin (Negative) Urine Urobilinogen (0.2) mg/dL Ur Leukocyte Esterase (Negative) U Hyaline Cast (Auto) (0-2) /LPF Urine Microscopic RBC (0-5) /HPF Urine Microscopic WBC (0-5) /HPF Ur Epithelial Cells (None Seen) /HPF Urine Bacteria (None Seen) /HPF Urine Culture Reflexed (NO) Urine Opiates Level (NEGATIVE) Ur Methadone (NEGATIVE) Urine Barbiturates (NEGATIVE) Ur Phencyclidine (PCP) (NEGATIVE) Urine Amphetamine (NEGATIVE) U Benzodiazepine Level (NEGATIVE) Urine Cocaine (NEGATIVE) Urine Marijuana (THC) (NEGATIVE) 09/10/24 09/10/24 09/11/24 Range/Units 18:15 Unknown 03:56 WBC 7.0 (4.23-9.07) x10^3/uL RBC 4.57 L (4.63-6.08) x10^6/uL Hgb 13.1 L (13.7-17.5) g/dL Hct 38.0 L (40.1-51.0) % MCV 83.2 (79.0-92.2) fL MCH 28.7 (25.7-32.2) pg MCHC 34.5 (32.3-36.5) g/dL RDW 13.1 (11.6-14.4) % Plt Count 217 (163-337) x10^3/uL MPV 9.6 (9.4-12.4) fL Gran % (34.0-67.9) % Immature Gran % (Auto) (0.001-0.429) % Nucleat RBC Rel Count (0.00-0.2) % Eos # (Auto) (0.04-0.54) x10^3/uL Immature Gran # (Auto) (0.001-0.031) x10^3u/L Absolute Lymphs (auto) (1.32-3.57) x10^3/uL Absolute Monos (auto) (0.30-0.82) x10^3/uL Absolute Nucleated RBC (0.00-0.012) x10^3u/L Lymphocytes % (21.8-53.1) % Monocytes % (5.3-12.2) % Eosinophils % (0.8-7.0) % Basophils % (0.2-1.2) % Absolute Granulocytes (1.78-5.38) x10^3/uL Basophils # (0.01-0.08) x10^3/uL Sodium (135-145) mmol/L Potassium (3.5-5.1) mmol/L Chloride (98-107) mmol/L Carbon Dioxide (22-30) mmol/L Anion Gap (5-15) MEQ/L BUN (9-20) mg/dL Creatinine (0.66-1.25) mg/dL Estimated GFR ML/MIN Glucose (74-106) mg/dL Hemoglobin A1c (4.5-6.0) % Calcium (8.4-10.2) mg/dL Magnesium (1.6-2.3) mg/dL Total Bilirubin (0.2-1.3) mg/dL AST (17-59) U/L ALT (0-50) U/L Alkaline Phosphatase (38-126) U/L Troponin I < 0.012 (0.000-0.033) ng/mL NT-Pro-B Natriuret Pep (<300) pg/mL Serum Total Protein (6.3-8.2) g/dL Albumin (3.5-5.0) g/dL Urine Color (Yellow) Urine Appearance (Clear) Urine pH (4.6-8.0) Ur Specific [place] (1.005-1.030) Urine Protein (Negative) Urine Glucose (UA) (Negative) mg/dL Urine Ketones (Negative) Urine Blood (Negative) Urine Nitrite (Negative) Urine Bilirubin (Negative) Urine Urobilinogen (0.2) mg/dL Ur Leukocyte Esterase (Negative) U Hyaline Cast (Auto) (0-2) /LPF Urine Microscopic RBC (0-5) /HPF Urine Microscopic WBC (0-5) /HPF Ur Epithelial Cells (None Seen) /HPF Urine Bacteria (None Seen) /HPF Urine Culture Reflexed (NO) Urine Opiates Level NEGATIVE (NEGATIVE) Ur Methadone NEGATIVE (NEGATIVE) Urine Barbiturates NEGATIVE (NEGATIVE) Ur Phencyclidine (PCP) NEGATIVE (NEGATIVE) Urine Amphetamine NEGATIVE (NEGATIVE) U Benzodiazepine Level NEGATIVE (NEGATIVE) Urine Cocaine NEGATIVE (NEGATIVE) Urine Marijuana (THC) NEGATIVE (NEGATIVE) Radiology Exams: Radiology Procedures Category Date Time Status CAROTID BILATERAL [US] Routine Exams 09/11/24 06:00 Ordered CHEST 1 VIEW (PORTABLE) Stat Exams 09/10/24 12:21 Completed ECHO W/2D AND DOPPLER [US] Routine Exams 09/11/24 08:00 Ordered HEAD WITHOUT CONTRAST [CT] Stat Exams 09/10/24 12:16 Completed MRI BRAIN W/O CONTRAST [MRI] Routine Exams 09/11/24 08:00 Ordered Assessment/Plan (1) Left facial numbness Current Visit: Yes Status: Resolved Assessment & Plan: - resolved since admission - CT head reviewed demonstrating a nonacute senile brain with remote lacunar infarcts left basal ganglia. -Tele-neuro cosulted - appreciate recs -Echo, carotid, Brain MRI pending - CXR reviewed with no new/acute findings. 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 use: with terminal gauger supervisor use Diabetes mellitus complication status: with neurologic complications Diabetes mellitus complication detail: with unspecified neuropathy Qualified Code(s): E11.40 - Type 2 diabetes mellitus with diabetic neuropathy, unspecified; Z79.4 - snf (current) use of insulin Assessment & Plan: -ADA diet -SSI -Hold metformin -A1c 6.88 -accuchecks ACHS Code(s): E11.9 - TYPE 2 DIABETES MELLITUS WITHOUT COMPLICATIONS (4) Essential hypertension Current Visit: No Status: Chronic Assessment & Plan: -allow permissive htn first 24 hours then continue home meds Code(s): I10 - ESSENTIAL (PRIMARY) HYPERTENSION (5) GERD (gastroesophageal reflux disease) Current Visit: No Status: Chronic Assessment & Plan: - Continue protonix - Tums PRN Code(s): K21.9 - GASTRO-ESOPHAGEAL REFLUX DISEASE WITHOUT ESOPHAGITIS (6) HLD (hyperlipidemia) Current Visit: No Status: Chronic Assessment & Plan: -continue increased dose of atorvastatin 80mg Code(s): E78.5 - HYPERLIPIDEMIA, UNSPECIFIED
[2024-09-11 07:39] LABS: ANION GAP 11.7 MEQ/L (5-15); BILIRUBIN,TOTAL 0.3 mg/dL (0.2-1.3); Calcium 9.5 mg/dL (8.4-10.2); Creatinine 1 0.91 mg/dL (0.66-1.25); EST GLOMERULAR FILTRATION RATE 96.5 ML/MIN; Potassium 3.4 mmol/L (3.5-5.1); TSH, 3RD Generation 2.377 mIU/L (0.470-4.680); Total Protein 6.7 g/dL (6.3-8.2)
--- NOTE | 2024-09-11 08:43 | XRAY ---
Indication: Left-sided numbness. TIA. Sagittal, coronal, and axial MRI brain performed without contrast using T1, T2, FLAIR, diffusion, and ADC sequences. Comparison: August 15, 2022 Again age-appropriate global atrophy and mild degenerative micro-ischemia signal in the periventricular white matter and brainstem. Basal ganglia again demonstrates incidental prominent Virchow-Sedrick spaces bilaterally. No acute intracranial hemorrhage, abnormal extra-axial fluid collection, or mass effect. Posterior limb left internal capsule demonstrates new 5 mm remote lacunar infarct. Diffusion images demonstrate new 3-4 mm focus restricted signal posterior limb right internal capsule favoring acute micro-ischemia. No other focus of restricted signal. Fourth ventricle is midline without hydrocephalus. 7/8 cranial nerve complex bilaterally symmetric. Normal flow void signal within the major intracerebral circulation. Normal appearing craniocervical junction and sella turcica. Floor of both maxilla sinuses again demonstrate small polyp/retention cyst. Impression: 1. New 3-4 mm focus acute micro-ischemia right internal capsule. Negative for large vessel territorial stroke. 2. Chronic findings including atrophy, degenerative micro-ischemia, and remote lacunar infarct left internal capsule. 3. Again incidental bilateral maxillary sinus polyps/retention cysts.
[2024-09-11] MEDS: Glucophage 500 MG PO SCH (08:56)
[2024-09-11] MEDS: ECOTRIN 81 MG PO SCH (08:56)
[2024-09-11] MEDS: Flomax 0.4 MG PO SCH (08:56)
[2024-09-11] MEDS: Protonix 40MG Tablet PO SCH (08:57)
[2024-09-11] MEDS: Zestril 10 MG PO SCH (08:57)
[2024-09-11] MEDS: NORVASC 5 MG PO SCH (08:58)
[2024-09-11] MEDS: PROZAC 10 MG PO SCH (08:58)
[2024-09-11] MEDS ORDERED: ROSUVASTATIN CALCIUM 40 MG PO SCH (10:00)
[2024-09-11] MEDS ORDERED: HUMALOG SQ PRN (12:05)
--- NOTE | 2024-09-11 12:07 | XRAY ---
Indication: TIA. Two-dimensional sonogram and color Doppler imaging carotid arteries of the neck performed. Comparison: November 25, 2019 Examination right carotid circulation now demonstrates minimal/mild eccentric calcified plaquing in carotid bulb extending into origin internal carotid artery. Remaining common carotid and external carotid arteries widely patent. PSV CCA is 84 cm/s. PSV ICA is 104 cm/s. ICA/CCA ratio is 1.2. Normal antegrade vertebral artery flow. Examination left carotid circulation minimal heterogeneous plaquing carotid bulb extending into origin external carotid artery. Remaining common carotid and internal carotid arteries are widely patent. PSV CCA is 124 cm/s. PSV ICA is 69 cm/s. ICA/CCA ratio is 0.6. Normal antegrade vertebral artery flow. Impression: Minimal/mild progressive arteriosclerotic disease bilaterally as detailed. Velocity measurements and ratios remain negative for hemodynamically significant flow-limiting stenosis.
--- NOTE | 2024-09-11 15:35 | PCM.DS ---
Discharge Summary Date of Admission: 09/10/24 15:00 Date of Discharge: 09/11/24 Admitting Physician: GISSEL MCKINNEY MD Primary Care Provider: BROOKLYN FRITZ Allergies Allergies No Known Drug Allergies Allergy (Verified 09/10/24 12:09) Hospital Summary - Hospital Course Hospital Course: Mr. Mckeon is a 59 year old male with a pmhx of hypertension, hyperlipidemia, diabetes mellitus, carpal tunnel, GERD, and peripheral neuropathy who presented 09/10/24 with complaints of numbness to the left face and burning/tingling sensation to the left upper extremity. CXR with no acute findings. CT head shows remote lacunar infarcts left basal ganglia. He states all numbness is gone since admission Neurology consulted -MRI showing New 3-4 mm focus acute micro-ischemia right internal capsule. Negative for large vessel territorial stroke. Chronic findings including atrophy, degenerative micro-ischemia, and remote lacunar infarct left internal capsule. Carotid US with minimal/mild progressive arteriosclerotic disease bilaterally as detailed. Velocity measurements and ratios remain negative for hemodynamically significant flow-limiting stenosis. Per neurology - patient reluctant to start Plavix due to increased risk of bleeding and his active lifestyle. Recommendations for atorvastatin and 81mg ASA with neurology follow up. Patient's amlodipine also increased to 10mg due to systolic BP's in the 170. Echo pending. Patient to keep BP log and follow up with his PCP. Patient agreeable to plan and stable for discharge home. Discharge Note New Diagnosis: Stroke New Medications: ASA/atorvastatin, increase of amlodipine to 10mg daily Follow Up: PCP/neurology Latest Assessment & Plan Stroke -MRI showing New 3-4 mm focus acute micro-ischemia right internal capsule. -Neurology consulted - - patient reluctant to start Plavix due to increased risk of bleeding and his active lifestyle. Recommendations for atorvastatin and 81mg ASA with neurology follow up. Patient's amlodipine also increased to 10mg due to systolic BP's in the 170. Echo pending. Patient to keep BP log and follow up w ith his PCP. (1) Left facial numbness Current Visit: Yes Status: Resolved Assessment & Plan: - resolved since admission - CT head reviewed demonstrating a nonacute senile brain with remote lacunar infarcts left basal ganglia. -Tele-neuro cosulted - appreciate recs -Echo, carotid, Brain MRI pending - CXR reviewed with no new/acute findings. - UDS negative - CBC, CMP reviewed- unremarkable -ASA/atorvastatin -TSH level pending -add b12 fevel Code(s): R20.0 - ANESTHESIA OF SKIN (2) Stroke-like symptoms Current Visit: Yes Status: Acute Assessment & Plan: -see left facial numbness Code(s): R29.90 - UNSPECIFIED SYMPTOMS AND SIGNS INVOLVING THE NERVOUS SYSTEM (3) Diabetes Current Visit: No Status: Chronic Qualifiers: Diabetes mellitus type: type 2 Diabetes mellitus terminal clerk insulin use: with jail use Diabetes mellitus complication status: with neurologic complications Diabetes mellitus complication detail: with unspecified neuropathy Qualified Code(s): E11.40 - Type 2 diabetes mellitus with diabetic neuropathy, unspecified; Z79.4 - custodial (current) use of insulin Assessment & Plan: -ADA diet -SSI -Hold metformin -A1c 6.88 -accuchecks ACHS Code(s): E11.9 - TYPE 2 DIABETES MELLITUS WITHOUT COMPLICATIONS (4) Essential hypertension Current Visit: No Status: Chronic Assessment & Plan: -allow permissive htn first 24 hours then continue home meds Code(s): I10 - ESSENTIAL (PRIMARY) HYPERTENSION (5) GERD (gastroesophageal reflux disease) Current Visit: No Status: Chronic Assessment & Plan: - Continue protonix - Tums PRN Code(s): K21.9 - GASTRO-ESOPHAGEAL REFLUX DISEASE WITHOUT ESOPHAGITIS (6) HLD (hyperlipidemia) Current Visit: No Status: Chronic Assessment & Plan: -continue increased dose of atorvastatin 80mg I spent 35 minutes [id number] with the patient on the day of discharge performing discharge exam, discussing hospital stay and discharge instructions with patient and caregivers, preparation of discharge records, prescriptions & referral forms and addressing any questions/concerns the patient had as docu mented above. - Vitals & Intake/Output Vital Signs: Vital Signs Temperature 97.6 F 09/11/24 11:37 Pulse Rate 62 09/11/24 11:37 Respiratory Rate 20 09/11/24 11:37 Blood Pressure 173/74 09/11/24 11:37 O2 Sat by Pulse Oximetry 93 L 09/11/24 11:37 Intake & Output: Intake & Output 09/09/24 09/10/24 09/11/24 09/12/24 11:59 11:59 11:59 11:59 Intake Total 3960 480 Balance 3960 480 Weight 123.8 kg - Lab Result Diagrams: 09/11/24 03:56 09/11/24 03:56 Lab Results-Last 24 Hrs: Lab Results-Last 24 Hours 09/10/24 09/10/24 09/10/24 Range/Units 12:45 15:55 18:15 WBC (4.23-9.07) x10^3/uL RBC (4.63-6.08) x10^6/uL Hgb (13.7-17.5) g/dL Hct (40.1-51.0) % MCV (79.0-92.2) fL MCH (25.7-32.2) pg MCHC (32.3-36.5) g/dL RDW (11.6-14.4) % Plt Count (163-337) x10^3/uL MPV (9.4-12.4) fL Sodium (135-145) mmol/L Potassium (3.5-5.1) mmol/L Chloride (98-107) mmol/L Carbon Dioxide (22-30) mmol/L Anion Gap (5-15) MEQ/L BUN (9-20) mg/dL Creatinine (0.66-1.25) mg/dL Estimated GFR ML/MIN Glucose (74-106) mg/dL POC Glucometer (74 to 106) mg/dL Hemoglobin A1c 6.88 H (4.5-6.0) % Calcium (8.4-10.2) mg/dL Total Bilirubin (0.2-1.3) mg/dL AST (17-59) U/L ALT (0-50) U/L Alkaline Phosphatase (38-126) U/L Troponin I < 0.012 < 0.012 (0.000-0.033) ng/mL Serum Total Protein (6.3-8.2) g/dL Albumin (3.5-5.0) g/dL Triglycerides (30-150) mg/dL Cholesterol (50-200) mg/dL LDL Cholesterol (30-100) mg/dL HDL Cholesterol (40-60) mg/dL Heart Disease Risk Ratio Vitamin B12 (239-931) pg/mL TSH 3rd Generation (0.470-4.680) mIU/L Urine Opiates Level (NEGATIVE) Ur Methadone (NEGATIVE) Urine Barbiturates (NEGATIVE) Ur Phencyclidine (PCP) (NEGATIVE) Urine Amphetamine (NEGATIVE) U Benzodiazepine Level (NEGATIVE) Urine Cocaine (NEGATIVE) Urine Marijuana (THC) (NEGATIVE) 09/10/24 09/11/24 09/11/24 Range/Units Unknown 03:56 03:56 WBC 7.0 (4.23-9.07) x10^3/uL RBC 4.57 L (4.63-6.08) x10^6/uL Hgb 13.1 L (13.7-17.5) g/dL Hct 38.0 L (40.1-51.0) % MCV 83.2 (79.0-92.2) fL MCH 28.7 (25.7-32.2) pg MCHC 34.5 (32.3-36.5) g/dL RDW 13.1 (11.6-14.4) % Plt Count 217 (163-337) x10^3/uL MPV 9.6 (9.4-12.4) fL Sodium 140 (135-145) mmol/L Potassium 3.4 L D (3.5-5.1) mmol/L Chloride 104 (98-107) mmol/L Carbon Dioxide 28 (22-30) mmol/L Anion Gap 11.7 (5-15) MEQ/L BUN 17 (9-20) mg/dL Creatinine 0.91 (0.66-1.25) mg/dL Estimated GFR 96.5 ML/MIN Glucose 90 (74-106) mg/dL POC Glucometer (74 to 106) mg/dL Hemoglobin A1c (4.5-6.0) % Calcium 9.5 (8.4-10.2) mg/dL Total Bilirubin 0.30 (0.2-1.3) mg/dL AST 20 (17-59) U/L ALT 22 (0-50) U/L Alkaline Phosphatase 51 (38-126) U/L Troponin I (0.000-0.033) ng/mL Serum Total Protein 6.7 (6.3-8.2) g/dL Albumin 4.0 (3.5-5.0) g/dL Triglycerides 267 H (30-150) mg/dL Cholesterol 89 (50-200) mg/dL LDL Cholesterol 34 (30-100) mg/dL HDL Cholesterol 28 L (40-60) mg/dL Heart Disease Risk Ratio 3.0 Vitamin B12 (239-931) pg/mL TSH 3rd Generation 2.377 (0.470-4.680) mIU/L Urine Opiates Level NEGATIVE (NEGATIVE) Ur Methadone NEGATIVE (NEGATIVE) Urine Barbiturates NEGATIVE (NEGATIVE) Ur Phencyclidine (PCP) NEGATIVE (NEGATIVE) Urine Amphetamine NEGATIVE (NEGATIVE) U Benzodiazepine Level NEGATIVE (NEGATIVE) Urine Cocaine NEGATIVE (NEGATIVE) Urine Marijuana (THC) NEGATIVE (NEGATIVE) 09/11/24 09/11/24 Range/Units 03:56 11:12 WBC (4.23-9.07) x10^3/uL RBC (4.63-6.08) x10^6/uL Hgb (13.7-17.5) g/dL Hct (40.1-51.0) % MCV (79.0-92.2) fL MCH (25.7-32.2) pg MCHC (32.3-36.5) g/dL RDW (11.6-14.4) % Plt Count (163-337) x10^3/uL MPV (9.4-12.4) fL Sodium (135-145) mmol/L Potassium (3.5-5.1) mmol/L Chloride (98-107) mmol/L Carbon Dioxide (22-30) mmol/L Anion Gap (5-15) MEQ/L BUN (9-20) mg/dL Creatinine (0.66-1.25) mg/dL Estimated GFR ML/MIN Glucose (74-106) mg/dL POC Glucometer 184 H (74 to 106) mg/dL Hemoglobin A1c (4.5-6.0) % Calcium (8.4-10.2) mg/dL Total Bilirubin (0.2-1.3) mg/dL AST (17-59) U/L ALT (0-50) U/L Alkaline Phosphatase (38-126) U/L Troponin I (0.000-0.033) ng/mL Serum Total Protein (6.3-8.2) g/dL Albumin (3.5-5.0) g/dL Triglycerides (30-150) mg/dL Cholesterol (50-200) mg/dL LDL Cholesterol (30-100) mg/dL HDL Cholesterol (40-60) mg/dL Heart Disease Risk Ratio Vitamin B12 293 (239-931) pg/mL TSH 3rd Generation (0.470-4.680) mIU/L Urine Opiates Level (NEGATIVE) Ur Methadone (NEGATIVE) Urine Barbiturates (NEGATIVE) Ur Phencyclidine (PCP) (NEGATIVE) Urine Amphetamine (NEGATIVE) U Benzodiazepine Level (NEGATIVE) Urine Cocaine (NEGATIVE) Urine Marijuana (THC) (NEGATIVE) Micro Results-Entire Visit: Accuchecks Date 09/11/24 Date 09/11/24 Date 09/10/24 Date 09/10/24 Time 22:05 - Radiology Exams Ordered Rad Exams-Entire Visit: Radiology Procedures Category Date Time Status CAROTID BILATERAL [US] Routine Exams 09/11/24 06:00 Completed CHEST 1 VIEW (PORTABLE) Stat Exams 09/10/24 12:21 Completed ECHO W/2D AND DOPPLER [US] Routine Exams 09/11/24 08:00 Taken HEAD WITHOUT CONTRAST [CT] Stat Exams 09/10/24 12:16 Completed MRI BRAIN W/O CONTRAST [MRI] Routine Exams 09/11/24 08:00 Completed - Procedures and Test Procedures and Tests throughout Hospitalization: Therapy Orders & Screens 09/10/24 17:00 PT Eval & Treat (MD Order) ONCE Reason for Eval:: possible TIA Diagnosis: L FACIAL NUMBNESS ST Eval & Treat (MD Order) .as ordered Comment: Physician Instructions: Reason For Exam: Evaluate: Yes: TIA Treat: Yes Reason for Eval: TIA Diagnosis: L FACIAL NUMBNESS OT Eval and Treat (MD Order) ONCE Comment: Physician Instructions: Reason For Exam: Evaluate: Yes Treat: Yes Diagnosis: L FACIAL NUMBNESS Discharge Exam General Appearance: no apparent distress Neurologic Exam: alert, oriented x 3, cooperative Eye Exam: PERRL Ears, Nose, Throat Exam: normal ENT inspection Neck Exam: normal inspection Respiratory Exam: normal breath sounds, lungs clear Cardiovascular Exam: regular rate/rhythm, normal heart sounds Gastrointestinal/Abdomen Exam: soft, normal bowel sounds Male Genitalia Exam: deferred Rectal Exam: deferred Back Exam: normal inspection Extremity Exam: normal inspection Skin Exam: normal color Final Diagnosis/Problem List - Final Discharge Diagnosis/Problem (1) CVA (cerebral vascular accident) Current Visit: Yes Status: Acute Code(s): I63.9 - CEREBRAL INFARCTION, UNSPECIFIED (2) Left facial numbness Current Visit: Yes Status: Resolved Code(s): R20.0 - ANESTHESIA OF SKIN (3) Stroke-like symptoms Current Visit: Yes Status: Acute Code(s): R29.90 - UNSPECIFIED SYMPTOMS AND SIGNS INVOLVING THE NERVOUS SYSTEM (4) Diabetes Current Visit: No Status: Chronic Code(s): E11.9 - TYPE 2 DIABETES MELLITUS WITHOUT COMPLICATIONS (5) Essential hypertension Current Visit: No Status: Chronic Code(s): I10 - ESSENTIAL (PRIMARY) HYPERTENSION (6) GERD (gastroesophageal reflux disease) Current Visit: No Status: Chronic Code(s): K21.9 - GASTRO-ESOPHAGEAL REFLUX DISEASE WITHOUT ESOPHAGITIS (7) HLD (hyperlipidemia) Current Visit: No Status: Chronic Code(s): E78.5 - HYPERLIPIDEMIA, UNSPECIF IED - Discharge Disposition: Home, Self-Care Condition: Stable Prescriptions: New Amlodipine Besylate 10 mg PO DAILY 30 Days #30 tablet Atorvastatin Calcium 80 mg PO DAILY 30 Days #30 tablet Aspirin EC 81 mg [Ecotrin 81 mg] 81 mg PO DAILY 30 Days #30 tablet Continue Metformin HCl 1000 mg [Glucophage 1000 MG] 1,000 mg PO BID Nitroglycerin [Nitrostat] 0.4 mg SL Q5MIN PRN MR X 3 PRN PRN Reason: Chest Pain Gabapentin [Neurontin] 600 mg PO BID Buspirone HCl 5 mg [Buspar 5 mg] 5 mg PO BID Fluoxetine HCl [Prozac] 10 mg PO DAILY PANTOPRAZOLE 40 mg Tablet [Protonix 40MG Tablet] 40 mg PO DAILY Insulin Lispro [Humalog Kwikpen U-100] 0 unit SQ UD carvediloL [Carvedilol] 25 mg PO BID Docusate Sodium 100 mg [Docusate Sodium 100 MG] 100 mg PO BIDPRN PRN 30 Days #60 cap PRN Reason: Constipation Tizanidine HCl 2 mg PO QHS PRN PRN Reason: Insomnia Tamsulosin HCl 0.4 mg [Flomax 0.4 MG] 0.4 mg PO DAILY Tirzepatide [Mounjaro] 5 mg SQ WEEKLY Lisinopril 10 mg [Zestril 10 MG] 10 mg PO DAILY Ergocalciferol (Vitamin D2) [Vitamin D2] 1,250 mcg PO WEEKLY Loperamide HCl [Imodium A-D] 4 mg PO UD PRN PRN Reason: Diarrhea Discontinued Rosuvastatin Calcium [Crestor] 40 mg PO DAILY Amlodipine Besylate 5 mg [Norvasc 5 mg] 5 mg PO DAILY Additional Instructions: Called [facility] to set up a referral with Dr. Christopher Molina. Office will call patient with appointment. Their number is [phone] Follow up with: BROOKLYN FRITZ MD [Primary Care Provider] - 09/18/24 2:15 pm
[2024-09-11 16:20] VITALS: BP 161/77; PULSE 74; RESP 18; TEMP 98.1; O2SAT 95
[2024-09-11] MEDS: NORVASC 5 MG PO ONE (16:28)
[2024-09-14] MEDS ORDERED: VITAMIN D2 PO SCH (10:00)
== END 2024-09-11 16:40 | disposition home or self-care (01) ==
LOC: ED 11:58 → MED SURG 15:00
PROVIDERS: ADMIT Internal Medicine; ATTEND Internal Medicine
DX: I63.9 Cerebral infarction, unspecified (principal); R20.0 Anesthesia of skin; R29.90 Unspecified symptoms and signs involving the nervous system; E11.40 Type 2 diabetes mellitus with diabetic neuropathy, unspecified; Z79.4 Long term (current) use of insulin; I10 Essential (primary) hypertension; K21.9 Gastro-esophageal reflux disease without esophagitis; E78.5 Hyperlipidemia, unspecified; G45.9 Transient cerebral ischemic attack, unspecified; F41.8 Other specified anxiety disorders; G62.9 Polyneuropathy, unspecified; Z79.899 Other long term (current) drug therapy; Z86.718 Personal history of other venous thrombosis and embolism
CPT/HCPCS: 36415; 70450; 70551; 71045; 80053; 80061; 80307; 81001; 82607; 82947; 83036; 83721; 83735; 83880; 84443; 84484; 85025; 85027; 93005; 93306; 93880; 97165; 99285; Q3014; A9270-GY

== ENCOUNTER 2024-12-20 12:08 | Emergency (ER) | payer MEDICARE, OTHER ==
[2024-12-20 12:42] LABS: Absolute Neutrophil Ct (ANC) 3.29 x10^3/uL (1.78-5.38); BASOPHIL % 0.6 % (0.2-1.2); Basophil (Absolute #) 0.03 x10^3/uL (0.01-0.08); Eosinophil % 2.9 % (0.8-7.0); Eosinophil (Absolute #) 0.15 x10^3/uL (0.04-0.54); Hematocrit 39.9 % (40.1-51.0); Hemoglobin 13.4 g/dL (13.7-17.5); IMMATURE GRAN # 0.02 x10^3u/L (0.001-0.031); IMMATURE GRAN % 0.4 % (0.001-0.429); Lymphocyte (Absolute #) 1.22 x10^3/uL (1.32-3.57); Lymphocytes % 23.5 % (21.8-53.1); Mean Cell Volume 86.6 fL (79.0-92.2); Mean Corpuscular Hemoglobin 29.1 pg (25.7-32.2); Mean Corpuscular Hgb Concent. 33.6 g/dL (32.3-36.5); Mean Platelet Volume 9.7 fL (9.4-12.4); Monocyte (Absolute #) 0.49 x10^3/uL (0.30-0.82); Monocytes % 9.4 % (5.3-12.2); Neutrophil % 63.2 % (34.0-67.9); Platelet Count 239 x10^3/uL (163-337); Red Blood Count 4.61 x10^6/uL (4.63-6.08); Red Cell Distribution Width 13.7 % (11.6-14.4); White Blood Count 5.2 x10^3/uL (4.23-9.07)
[2024-12-20] MEDS ORDERED: Zofran 4 MG/2 ML VIAL ONE (12:50)
[2024-12-20] MEDS ORDERED: BABY ASPIRIN 81 MG CHEW ONE (12:50)
[2024-12-20] MEDS ORDERED: Nitrostat 0.4 MG (ED) SL ONE (12:51)
[2024-12-20] MEDS ORDERED: Sodium Chloride 0.9% 1000 ML 1,000 ML ONE (12:51)
[2024-12-20] MEDS ORDERED: Pepcid 20 MG VIAL IV ONE (12:51)
[2024-12-20] MEDS: BABY ASPIRIN 81 MG CHEW PO ONE (12:53)
[2024-12-20] MEDS: Nitrostat 0.4 MG (ED) SL ONE (12:53)
[2024-12-20] MEDS: Sodium Chloride 0.9% 1000 ML 1,000 ML IV SCH (12:54)
[2024-12-20] MEDS: Zofran 4 MG/2 ML VIAL IV ONE (13:00)
[2024-12-20 13:02] LABS: ALBUMIN 4.5 g/dL (3.5-5.0); ALKALINE PHOSPHATASE 56 U/L (38-126); ANION GAP 14.9 MEQ/L (5-15); BLOOD UREA NITROGEN 16 mg/dL (9-20); CHLORIDE 103 mmol/L (98-107); Calcium 9.2 mg/dL (8.4-10.2); Carbon Dioxide 27 mmol/L (22-30); Creatinine 1 1.01 mg/dL (0.66-1.25); EST GLOMERULAR FILTRATION RATE 85.1 ML/MIN; Glucose 139 mg/dL (74-106); Potassium 3.8 mmol/L (3.5-5.1); SGOT/AST 30 U/L (17-59); SGPT/ALT 35 U/L (0-50); SODIUM 142 mmol/L (135-145); TROPONIN < 0.012 ng/mL (0.000-0.033); Total Protein 7.4 g/dL (6.3-8.2)
[2024-12-20] MEDS: Pepcid 20 MG VIAL IV ONE (13:02)
--- NOTE | 2024-12-20 13:18 | ERPHSYRPT ---
- History of Present Illness Time Seen by Provider: 12/20/24 13:13 Historian: patient Exam Limitations: no limitations Patient Subjective Stated Complaint: pt here for chest pain to center of chest that started at 0900 this am, and numbness to left eye at 10:00. he was able to go to [facility]. Triage Nursing Assessment: pt alert, walked in, resp easy, skin w/d/p. chest clear, no edema noted, Physician History: Patient is 59-year-old male with significant past medical history of type 2 diabetes and diabetes neuropathy as well as gastroesophageal reflux disease started having a substernal chest pain at around 10:00 in the morning as well as complaining of numbness on his left arm and left face so he came to the emerg ency room at around 12 noon in the emergency room patient was having a very little chest pain and a little numbness on his left eye otherwise he was denying any other symptoms including nausea vomiting dizziness shortness of breath. Patient has a previous cardiac workup by animal control officer which patient does not recall the results. Timing/Duration: today Activities at Onset: none Quality: tightness Location: substernal Severity of Pain-Max: mild Severity of Pain-Current: mild Modifying Factors: Improves With: nothing Associated Symptoms: other (c/o numbness on left eye) Prior Chest Pain/Cardiac Workup: no prior chest pain Nitro Today/Relief: no nitro taken today Aspirin Treatment Today: no aspirin today Body Map: 1 - chest pain 2 - numbness Allergies/Adverse Reactions: No Known Drug Allergies Allergy (Verified 12/20/24 12:09) Home Medications: Metformin HCl 1000 mg [Glucophage 1000 MG] 1,000 mg PO BID 05/17/15 [History] Nitroglycerin [Nitrostat] 0.4 mg SL Q5MIN PRN MR X 3 PRN 07/03/15 [History] Gabapentin [Neurontin] 600 mg PO BID 07/24/20 [History] Buspirone HCl 5 mg [Buspar 5 mg] 5 mg PO BID 06/04/21 [History] Fluoxetine HCl [Prozac] 10 mg PO DAILY 12/18/22 [History] Insulin Lispro [Humalog Kwikpen U-100] 0 unit SQ UD 12/18/22 [History] PANTOPRAZOLE 40 mg Tablet [Protonix 40MG Tablet] 40 mg PO DAILY 12/18/22 [History] carvediloL [Carvedilol] 25 mg PO BID 05/07/23 [History] Loperamide HCl [Imodium A-D] 4 mg PO UD PRN 09/10/24 [History] Tamsulosin HCl 0.4 mg [Flomax 0.4 MG] 0.4 mg PO DAILY 09/10/24 [History] Tirzepatide [Mounjaro] 5 mg SQ WEEKLY 09/10/24 [History] Rosuvastatin Calcium 40 mg PO DAILY 10/23/24 [History] Semaglutide [Ozempic] 2 mg SQ DAILY 10/23/24 [History] Hx Tetanus, Diphtheria Vaccination/Date Given: No Hx Influenza Vaccination/Date Given: No Hx Pneumococcal Vaccination/Date Given: No Immunizations Up to Date: Yes Travel Risk - International Travel Have you traveled outside of the country in past 3 weeks: No - Emerging Infectious Disease Are you exhibiting symptoms associated with any current EIDs: No - Review of Systems Constitutional: No Fever, No Chills Eyes: No Symptoms Ears, Nose, & Throat: No Symptoms Respiratory: No Cough, No Dyspnea Cardiac: Chest Pain, No Edema, No Syncope Abdominal/Gastrointestinal: No Abdominal Pain, No Nausea, No Vomiting, No Diarrhea Genitourinary Symptoms: No Dysuria Musculoskeletal: No Back Pain, No Neck Pain Skin: No Rash Neurological: Sensory Changes (left eye), No Dizziness, No Focal Weakness Psychological: No Symptoms Endocrine: No Symptoms Hematologic/Lymphatic: No Symptoms All Other Systems: Reviewed and Negative - Past Medical History Pertinent Past Medical History: Yes Neurological History: Stroke, Seizures, Peripheral Neuropathy ENT History: No Pertinent History Cardiac History: Coronary Artery Disease, High Cholesterol, Hypertension, Peripheral Vascular Disease Respiratory History: Sleep Apnea, Other, COPD Endocrine Medical History: Diabetes Type II Musculoskeletal History: Fractures, Osteoarthritis GI Medical History: GERD, Pancreatitis, Gallbladder Disease, Esophageal Disorder History: No Pertinent History Psycho-Social History: Depression, Anxiety, Panic Disorder Male Reproductive Disorders: Prostate Problems Other Medical History: COVID IN 2019. FX LEFT FOREARM AND ANKLE A CHILD. LOWER EXTREMITY CELLULITIS - Past Surgical History Past Surgical History: Yes Neuro Surgical History: No Pertinent History Cardiac: Cardiac Catheterization Respiratory: No Pertinent History Gastrointestinal: Cholecystectomy Genitourinary: No Pertinent History Musculoskeletal: No Pertinent History Male Surgical History: No Pertinent History Other Surgical History: uvula removed, carpal tunnel right hand Significant Family History: heart disease, diabetes, hypertension - Social History Smoking Status: Former smoker Exposure to second hand smoke: Yes Drug Use: none - Social Determinants of Health Will the patient participate in the screening: Yes Do you worry about a steady place to live?: No Do you have any problems with any of the following?: No known problems In the past 12 months,have you had to go without utilities?: No Transportation Issues: No Has anyone in your support network made you feel unsafe?: No Have you or anyone in your house had to go w/o enough food: No - Nursing Vital Signs Nursing Vital Signs: Initial Vital Signs Temperature 97.6 F 12/20/24 12:09 Pulse Rate 62 12/20/24 12:09 Respiratory Rate 16 12/20/24 12:09 Blood Pressure 201/86 12/20/24 12:09 O2 Sat by Pulse Oximetry 97 12/20/24 12:09 Pain Scale Pain Intensity 4 - Physical Exam General Appearance: no apparent distress, alert Eye Exam: PERRL/EOMI, eyes nml inspection Ears, Nose, Throat Exam: normal ENT inspection, moist mucous membranes Neck Exam: normal inspection, non-tender, supple, full range of motion Respiratory Exam: normal breath sounds, lungs clear, No respiratory distress Cardiovascular Exam: regular rate/rhythm, normal heart sounds Gastrointestinal/Abdomen Exam: soft, No tenderness, No mass Back Exam: normal inspection, No CVA tenderness, No vertebral tenderness Extremity Exam: normal inspection, normal range of motion Neurologic Exam: alert, oriented x 3, cooperative, 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 II-XII nml as tested, normal mood/affect, nml station & gait, sensation nml, No motor deficits, No EOM palsy Skin Exam: normal color, warm, dry SpO2 Interpretation: normal SpO2: 98 O2 Delivery: Room Air - Course Nursing assessment & vital signs reviewed: Yes EKG Interpreted by Me: Sinus Rhythm Rhythm Strip: Normal Sinus Rhythm - Radiology Exams Chest X-ray Interpretation: Interpreted by me, Reviewed by me, No Pneumonia - CT Exams Head CT Interpretation: Tele-radiologist Report, No/Intracranial Hemorrhag Ordered Tests: Active Orders 24 hr Category Date Time Status 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 Plant Control Room Operator STAT Care 12/20/24 12:18 Completed EKG-ER Only STAT Care 12/20/24 12:17 Active IV Insertion STAT Care 12/20/24 12:17 Active NPO (ED) STAT Care 12/20/24 12:17 Completed Oxygen-ED Only Nasal Cannula 2 lpm Care 12/20/24 12:17 Active CHEST 1 VIEW (PORTABLE) Stat Exams 12/20/24 12:37 Taken HEAD WITHOUT CONTRAST [CT] Stat Exams 12/20/24 12:37 Completed CBC W DIFF Stat Lab 12/20/24 12:30 Completed CMP Stat Lab 12/20/24 12:30 Completed D-DIMER QUANTITATIVE Stat Lab 12/20/24 12:30 Completed NT PRO BNPII Stat Lab 12/20/24 12:30 Completed TROPONIN Stat Lab 12/20/24 12:30 Completed Medication Summary Generic Name Dose Route Start Last Admin Trade Name Freq PRN Reason Stop Dose Admin Sodium Chloride 1,000 mls @ 100 mls/hr 12/20/24 12:30 12/20/24 12:54 Sodium Chloride 0.9% 1000 Ml IV 01/19/25 12:29 100 mls/hr .Q10H LACY Administration Discontinued Medications Generic Name Dose Route Start Last Admin Trade Name Freq PRN Reason Stop Dose Admin Aspirin 324 mg 12/20/24 12:17 12/20/24 12:53 Aspirin 81 Mg Tab.Chew PO 12/20/24 12:18 324 mg STAT ONE Administration Aspirin Confirm 12/20/24 12:50 Aspirin 81 Mg Tab.Chew Administered 12/20/24 12:51 Dose 324 mg .ROUTE .STK-MED ONE Famotidine 20 mg 12/20/24 12:17 12/20/24 13:02 Famotidine 20 Mg/1 Vial IV 12/20/24 12:18 20 mg STAT ONE Administration Famotidine Confirm 12/20/24 12:51 Famotidine 20 Mg/1 Vial Administered 12/20/24 12:52 Dose 20 mg IV .STK-MED ONE Nitroglycerin 0.4 mg 12/20/24 12:17 12/20/24 12:53 Nitroglycerin 0.4 Mg (Ed) 0.4 Mg Tab.Subl SL 12/20/24 12:18 0.4 mg STAT ONE Administration Nitroglycerin Confirm 12/20/24 12:51 Nitroglycerin 0.4 Mg (Ed) 0.4 Mg Tab.Subl Administered 12/20/24 12:52 Dose 0.4 mg SL .STK-MED ONE Ondansetron HCl 4 mg 12/20/24 12:17 12/20/24 13:00 Ondansetron Hcl 4 Mg/2 Ml Vial IV 12/20/24 12:18 4 mg STAT ONE Administration Ondansetron HCl Confirm 12/20/24 12:50 Ondansetron Hcl 4 Mg/2 Ml Vial Administered 12/20/24 12:51 Dose 4 mg .ROUTE .STK-MED ONE Lab/Rad Data: Laboratory Result Diagrams 12/20/24 12:30 12/20/24 12:30 Laboratory Results 12/20/24 12/20/24 12/20/24 Range/Units 12:30 12:30 12:30 WBC (4.23-9.07) x10^3/uL RBC (4.63-6.08) x10^6/uL Hgb (13.7-17.5) g/dL Hct (40.1-51.0) % MCV (79.0-92.2) fL MCH (25.7-32.2) pg MCHC (32.3-36.5) g/dL RDW (11.6-14.4) % Plt Count (163-337) x10^3/uL MPV (9.4-12.4) fL Gran % (34.0-67.9) % Immature Gran % (Auto) (0.001-0.429) % Nucleat RBC Rel Count (0.00-0.2) % Eos # (Auto) (0.04-0.54) x10^3/uL Immature Gran # (Auto) (0.001-0.031) x10^3u/L Absolute Lymphs (auto) (1.32-3.57) x10^3/uL Absolute Monos (auto) (0.30-0.82) x10^3/uL Absolute Nucleated RBC (0.00-0.012) x10^3u/L Lymphocytes % (21.8-53.1) % Monocytes % (5.3-12.2) % Eosinophils % (0.8-7.0) % Basophils % (0.2-1.2) % Absolute Granulocytes (1.78-5.38) x10^3/uL Basophils # (0.01-0.08) x10^3/uL D-Dimer 0.40 (0.0-0.50) mg/L Sodium 142 (135-145) mmol/L Potassium 3.8 (3.5-5.1) mmol/L Chloride 103 (98-107) mmol/L Carbon Dioxide 27 (22-30) mmol/L Anion Gap 14.9 (5-15) MEQ/L BUN 16 (9-20) mg/dL Creatinine 1.01 (0.66-1.25) mg/dL Estimated GFR 85.1 ML/MIN Glucose 139 H (74-106) mg/dL Calcium 9.2 (8.4-10.2) mg/dL Total Bilirubin 0.50 (0.2-1.3) mg/dL AST 30 (17-59) U/L ALT 35 (0-50) U/L Alkaline Phosphatase 56 (38-126) U/L Troponin I < 0.012 (0.000-0.033) ng/mL NT-Pro-B Natriuret Pep 389 (<300) pg/mL Serum Total Protein 7.4 (6.3-8.2) g/dL Albumin 4.5 (3.5-5.0) g/dL / Range/Units 12:30 WBC 5.2 (4.23-9.07) x10^3/uL RBC 4.61 L (4.63-6.08) x10^6/uL Hgb 13.4 L (13.7-17.5) g/dL Hct 39.9 L (40.1-51.0) % MCV 86.6 (79.0-92.2) fL MCH 29.1 (25.7-32.2) pg MCHC 33.6 (32.3-36.5) g/dL RDW 13.7 (11.6-14.4) % Plt Count 239 (163-337) x10^3/uL MPV 9.7 (9.4-12.4) fL Gran % 63.2 (34.0-67.9) % Immature Gran % (Auto) 0.4 (0.001-0.429) % Nucleat RBC Rel Count 0.0 (0.00-0.2) % Eos # (Auto) 0.15 (0.04-0.54) x10^3/uL Immature Gran # (Auto) 0.02 (0.001-0.031) x10^3u/L Absolute Lymphs (auto) 1.22 L (1.32-3.57) x10^3/uL Absolute Monos (auto) 0.49 (0.30-0.82) x10^3/uL Absolute Nucleated RBC 0.00 (0.00-0.012) x10^3u/L Lymphocytes % 23.5 (21.8-53.1) % Monocytes % 9.4 (5.3-12.2) % Eosinophils % 2.9 (0.8-7.0) % Basophils % 0.6 (0.2-1.2) % Absolute Granulocytes 3.29 (1.78-5.38) x10^3/uL Basophils # 0.03 (0.01-0.08) x10^3/uL D-Dimer (0.0-0.50) mg/L Sodium (135-145) mmol/L Potassium (3.5-5.1) mmol/L Chloride (98-107) mmol/L Carbon Dioxide (22-30) mmol/L Anion Gap (5-15) MEQ/L BUN (9-20) mg/dL Creatinine (0.66-1.25) mg/dL Estimated GFR ML/MIN Glucose (74-106) mg/dL Calcium (8.4-10.2) mg/dL Total Bilirubin (0.2-1.3) mg/dL AST (17-59) U/L ALT (0-50) U/L Alkaline Phosphatase (38-126) U/L Troponin I (0.000-0.033) ng/mL NT-Pro-B Natriuret Pep (<300) pg/mL Serum Total Protein (6.3-8.2) g/dL Albumin (3.5-5.0) g/dL CT/HEAD WITHOUT CONTRAST CLINICAL HISTORY: left face and eye numbness COMPARISON: 09/10/2024 TECHNIQUE: Axial non-contrast CT scan of the brain was performed from the skull base to the high parietal region. One of the following dose reduction techniques were utilized for this exam: Automated exposure control, adjustment of the mA and/or kV according to patient size, use of iterative reconstruction. FINDINGS: Brain Parenchyma: Normal attenuation of the cerebral hemispheres, cerebellum, and brainstem. No evidence of acute infarct, hemorrhage, or mass effect. No abnormal areas of hypo- or hyperattenuation. Ventricular System: Mild dilatation of the ventricular system, with diffuse periventricular hypodensity, likely due to diffuse ischemic changes. Subarachnoid Spaces: Increased extra-axial subarachnoid spaces with prominent gyri and deep sulci of the brain, prominent cerebellar folia, basal cisterns, and Mukesh fissures. No evidence of subarachnoid hemorrhage or extra-axial fluid collections. Cerebellum and Brainstem: Normal size and signal. No masses, lesions, or areas of abnormal signal. Orbits: Normal appearance of the globes, optic nerves, and extraocular muscles. No evidence of orbital masses or abnormal signals. Sinuses: Clear paranasal sinuses. No evidence of sinusitis or mucosal thickening. Mastoid Air Cells: Clear mastoid air cells. No evidence of mastoiditis. Skull: Normal skull morphology. IMPRESSION: 1. No acute Brain insult. 2. Diffuse Brain Atrophic changes 3. Diffuse chronic microvascular ischemic disease. 4. No significant interval changes compared to the last study. The report was ready at 12:00 PM POTTERY KILN BUILDER, 12/20/2024 and the call was completed at 12:06 PM POTTERY KILN BUILDER, 12/20/2024 and Malorie Leblanc was informed regarding the Negative stroke results. - Progress Progress: improved Air Movement: good Blood Culture(s) Obtained: No Antibiotics given: No Counseled pt/family regarding: lab results, diagnosis, need for follow-up, rad results, smoking cessation Medical Desision Making - Diagnostic Testing Diagnostic test were ordered, analyzed, and reviewed by me: Yes Radiological Interpretation: Interpreted by me, Reviewed by me, Teleradiologist Report - Departure Departure Disposition: Home Clinical Impression: Left facial numbness, Chest pain due to gastrointestinal reflux disease, without esophagitis, Chest pain at rest, Hypertension associated with diabetes GERD (gastroesophageal reflux disease) Qualifiers: Esophagitis presence: without esophagitis Qualified Code(s): K21.9 - Gastro- esophageal reflux disease without esophagitis Condition: Stable Critical Care Time: No Referrals: BROOKLYN FRITZ MD [Primary Care Provider] - Follow up/PCP as directed (Follow up with Developer Advocate Dr Mason) Instructions: Chest Pain (DC), Acid reflux and GERD in adults Additional Instructions: Discharge/Care Plan JORDAN SUH was seen on 12/20/24 in the Emergency Room. The patient was counseled regarding Diagnosis,Lab results, Imaging studies, need for follow up and when to return to the Emergency Room. Prescriptions given: Discharge Note I have spoken with the patient and/or caregivers. I have explained the patient's condition, diagnosis and treatment plan based on the information available to me at this time. I have answered the patient's and/or caregiver's questions and addressed any concerns. The patient and/or caregivers have as good understanding of the patient's diagnosis, condition and treatment plan as can be expected at this point. The vital signs have been stable. The patient's condition is stable and appropriate for discharge from the emergency department. The patient will pursue further outpatient evaluation with the primary care physician or other designated or consulting physician as outlined in the discharge instructions. The patient and/or caregivers are agreeable to this plan of care and follow-up instructions have been explained in detail. The patient and/or caregivers have received these instruction. The patient/and or caregivers are aware that any significant change in condition or worsening of symptoms delio uld prompt an immediate return to this or the closest emergency department or call 911. JORDAN SUH was seen on 12/20/24 n the Emergency Room. At that time you were treated for an emergent condition, during your visit Laboratory, Radiology and/or other procedures may have been ordered. It is very important that you follow-up with your Primary Care Physician BROOKLYN FRITZ within the next 24- 48 hours to review your Emergency Room visit and the final results of testing that was ordered. Some test results such as Urine Cultures, Blood Cultures, and other cultures if ordered will not be finalized for 24-48 hours. If you do not have a Primary Care Provider please call the medical records department at [phone] ext [phone] to obtain a copy of your results or you may sign into our patient portal to obtain these results by visiting us @ [email or web address] and completing the following steps: 1. Click on the Patient Portal link 2. Click the Patient Self Enrollment Link to complete the enrollment form and entering your 3. Once the enrollment form is completed you will receive an email with a temporary ID and password at the email address you provided. 4. Next choose a user name and password. Your user name must be at least 4 characters long and your password must be at least 4 characters long. 5. Choose a security question from the list and provide your answer to the question. If you already have signed into the Health Portal you may access your Health Care Information 29/04 by the following steps: 1. Login to our website @ [email or web address] 2. Enter your original user name and password. FAQS The [facility] Health Portal is an online tool that contains your Lab Results, Radiology Reports, Visit History, Discharge Instructions and Health Summary Lab and Radiology Results will not be available for 72 hours on the portal. The Portal is a secure site, passwords are encryted and URLs are re-written so they cannot be copied and pasted. You and authorized family members are the only ones who can access your Portal. Also there is a timeout feature that protects your information if you leave the Portal page open. If you have technical difficulty please use the Contact Us link on the page this will allow you to submit any questions you have regarding the Portal or you may contact the Medical Record Department at [phone] ext [phone]. Prescriptions: Amlodipine Besylate/Benazepril [Amlodipine-Benazepril 5-10 mg] 1 each PO QHS 30 Days #30 cap
[2024-12-20 13:43] VITALS: BP 186/75; PULSE 63; RESP 20; TEMP 98; O2SAT 97
--- NOTE | 2024-12-20 19:43 | XRAY ---
Indication: Chest pain. Comparison: September 10, 2024 Portable chest again demonstrates normal heart and lungs with incidental bilateral calcified granulomas. Bony thorax intact again with osteopenia and mild degenerative changes. No new/acute findings.
== END 2024-12-20 13:40 | disposition home or self-care (01) ==
LOC: ED 12:08
DX: R20.0 Anesthesia of skin (principal); R07.89 Other chest pain; I10 Essential (primary) hypertension; E11.42 Type 2 diabetes mellitus with diabetic polyneuropathy; K21.9 Gastro-esophageal reflux disease without esophagitis; Z79.84 Long term (current) use of oral hypoglycemic drugs; Z79.4 Long term (current) use of insulin; Z79.899 Other long term (current) drug therapy
CPT/HCPCS: 36415; 70450; 71045; 80053; 83880; 84484; 85025; 85379; 93005; 96374; 96375; 99284; 99285; J2405; A9270-GY

== ENCOUNTER 2025-02-25 11:37 | Day surgery (SDC) | payer MEDICARE, OTHER ==
[~2025-02-25 11:37] MED LIST: Lactated Ringers 1,000 ML IV SCH
[2025-02-25] MEDS: Sodium Chloride 0.9% 1000 ML 1,000 ML IV SCH (11:52)
[2025-02-25 12:14] LABS: ANION GAP 11.5 MEQ/L (5-15); Calcium 9.2 mg/dL (8.4-10.2); Creatinine 1 0.77 mg/dL (0.66-1.25); EST GLOMERULAR FILTRATION RATE 102.5 ML/MIN; Potassium 3.7 mmol/L (3.5-5.1)
[2025-02-25] MEDS ORDERED: Xylocaine-Mpf 2% 5 Ml Vial ONE (12:49)
[2025-02-25] MEDS ORDERED: propofoL IV ONE ×2 (12:49→13:01)
[2025-02-25] MEDS ORDERED: Versed 2 MG/2 ML Injection ONE (12:50)
[2025-02-25 13:47] VITALS: RESP 20; TEMP 97.1
[2025-02-25 13:52] VITALS: BP 195/74; PULSE 55; O2SAT 98
--- NOTE | 2025-02-26 09:56 | OP ---
SURGERY DATE/TIME: 02/25/2025 [id number] PREOPERATIVE DIAGNOSES: 1) History of gastric ulcer. 2) Abdominal pain. 3) Due for screening. POSTOPERATIVE DIAGNOSES: 1) Totally normal EGD with healed ulcer. 2) Diverticulosis. SURGEON: Preet Andino MD ANESTHESIA: IV anesthesia. PATIENT CONDITION: Stable. COMPLICATIONS: None. SPECIMENS: None. INDICATIONS: The patient is a 59-year-old male who did have an ulcer on EGD. His symptoms are doing better after that. Also was having some abdominal pain. Also has a history of a right colectomy for gangrenous cholecystitis and is due for screening for colon cancer. Discussed with the patient, and he elects to proceed. FINDINGS: 1) Totally healed gastric ulcer. The EGD is normal. 2) Colonoscopy with fair preparation, healthy anastomosis, mild diverticulosis. Otherwise normal. DESCRIPTION OF PROCEDURE: Patient was brought to the endoscopy suite. Routinely positioned and prepared. IV anesthesia induced by Anesthesia. The gastroscope was inserted through the mouth and advanced to the third portion of the duodenum. Duodenum is normal in appearance. The stomach is normal in appearance. His previous ulcer is totally healed. GE junction normal. Esophagus normal. Stomach suctioned out. Scope was withdrawn. Rectal examination is normal. Colonoscope was inserted and advanced to the terminal ileum. There is a healthy [id number] ileocolonic anastomosis. The withdrawal time is greater than 6 minutes. The colon just with mild diverticulosis. Fair preparation with about 90% of the mucosa visualized. The patient tolerated the procedure well and taken to Recovery in stable condition. RECOMMENDATIONS: Would be a 5-year recall for colorectal cancer screening. He can de-escalate his PPI. Would remain on a once daily PPI for a history of gastric ulcer.
== END 2025-02-25 13:55 | disposition home or self-care (01) ==
LOC: SDC 11:37
PROVIDERS: ATTEND Surgery
DX: Z12.11 Encounter for screening for malignant neoplasm of colon (principal); R10.9 Unspecified abdominal pain; Z87.19 Personal history of other diseases of the digestive system; K57.30 Diverticulosis of large intestine without perforation or abscess without bleeding; E11.9 Type 2 diabetes mellitus without complications
CPT/HCPCS: 36415; 43235; 80048; 82947; G0121; J2250; J2704

== ENCOUNTER 2025-07-18 14:14 | Emergency (ER) | payer MEDICARE, OTHER ==
--- NOTE | 2025-07-18 14:28 | ERPHSYRPT ---
- History of Present Illness Time Seen by Provider: 07/18/25 14:27 Source: patient Exam Limitations: no limitations Physician History: Patient presents emergency room with elevated blood pressure and symptoms of headache and dizziness. Patient reports blood pressure at home is elevated 210s/100s. BP on arrival 179/90. Patient did endorse occasional chest tightness without chest pain. No radiation. No history of previous heart attack. Patient does report multiple TIAs. Denies cough, congestion, fevers, abdominal pain or swelling. Timing/Duration: today Activities at Onset: none Quality: tightness Location: substernal Chest Pain Radiation: no radiation Severity of Pain-Max: none Severity of Pain-Current: none Nitro Today/Relief: no nitro taken today Aspirin Treatment Today: 81 mg x 4, provided by ED Prior Chest Pain/Cardiac Workup: no prior chest pain Allergies/Adverse Reactions: No Known Drug Allergies Allergy (Verified 07/18/25 14:25) Home Medications: Metformin HCl 1000 mg [Glucophage 1000 MG] 1,000 mg PO BID 05/17/15 [History] Nitroglycerin [Nitrostat] 0.4 mg SL Q5MIN PRN MR X 3 PRN 07/03/15 [History] Insulin Lispro [Humalog Kwikpen U-100] 0 unit SQ UD 12/18/22 [History] carvediloL [Carvedilol] 25 mg PO BID 05/07/23 [History] Tirzepatide [Mounjaro] 10 mg SQ WEEKLY 09/10/24 [History] Clopidogrel Bisulfate [Plavix] 75 mg PO DAILY 02/12/25 [History] Docusate Sodium [Colace] 100 mg PO DAILY 07/18/25 [History] Lisinopril 20 mg [Zestril 20 MG] 20 mg PO DAILY 07/18/25 [History] Hx Tetanus, Diphtheria Vaccination/Date Given: Yes Hx Influenza Vaccination/Date Given: No Hx Pneumococcal Vaccination/Date Given: No Travel Risk - Emerging Infectious Disease Are you exhibiting symptoms associated with any current EIDs: No - Review of Systems All Other Systems: Reviewed and Negative - Past Medical History Cardiac History: Coronary Artery Disease, High Cholesterol, Hypertension, Myocardial Infarction ([place]), Peripheral Vascular Disease Respiratory History: Sleep Apnea, Other - Past Surgical History Past Surgical History: Yes Neuro Surgical History: No Pertinent History Cardiac: Cardiac Catheterization Respiratory: No Pertinent History Gastrointestinal: Cholecystectomy Genitourinary: No Pertinent History Musculoskeletal: No Pertinent History Male Surgical History: No Pertinent History Other Surgical History: uvula removed, carpal tunnel right hand Significant Family History: heart disease, diabetes, hypertension - Social History Smoking Status: Former smoker Exposure to second hand smoke: Yes Drug Use: none - Social Determinants of Health Will the patient participate in the screening: Yes Do you worry about a steady place to live?: No In the past 12 months,have you had to go without utilities?: No Transportation Issues: No Has anyone in your support network made you feel unsafe?: No Have you or anyone in your house had to go w/o enough food: No - Nursing Vital Signs Nursing Vital Signs: Initial Vital Signs Temperature 97.0 F 07/18/25 14:35 Pulse Rate 98 H 07/18/25 14:35 Respiratory Rate 72 H 07/18/25 14:35 Blood Pressure 179/87 07/18/25 14:35 O2 Sat by Pulse Oximetry 98 07/18/25 14:35 Pain Scale Pain Intensity 0 - Physical Exam General Appearance: no apparent distress Neck Exam: normal inspection, supple, full range of motion Respiratory Exam: normal breath sounds, lungs clear, airway intact, No respiratory distress Cardiovascular Exam: regular rate/rhythm, normal heart sounds, capillary refill <2 sec, No edema Gastrointestinal/Abdomen Exam: soft, No tenderness, No distention, No mass, No guarding, No rebound Neurologic Exam: alert, oriented x 3, cooperative Skin Exam: normal color, warm, dry, No rash SpO2 Interpretation: normal O2 Delivery: Room Air - Course Nursing assessment & vital signs reviewed: Yes EKG Interpreted by Me: RATE (72), Sinus Rhythm, NORMAL AXIS, NORMAL INTERVALS, NORMAL QRS, NORMAL ST-T Ordered Tests: Active Orders 24 hr Category Date Time Status Day Care Director STAT Care 07/18/25 14:30 Active EKG-ER Only STAT Care 07/18/25 14:28 Active IV Insertion STAT Care 07/18/25 14:28 Active CHEST 1 VIEW (PORTABLE) Stat Exams 07/18/25 14:45 Taken CBC W DIFF Stat Lab 07/18/25 14:45 Completed CMP Stat Lab 07/18/25 14:45 Completed MAGNESIUM Stat Lab 07/18/25 14:45 Completed NT PRO BNPII Stat Lab 07/18/25 14:45 Completed TROPONIN Q4H Lab 07/18/25 14:45 Completed TROPONIN Q4H Lab 07/18/25 18:30 Ordered TROPONIN Q4H Lab 07/18/25 22:30 Ordered TSH, 3RD Generation Stat Lab 07/18/25 14:45 Completed UA W/RFX UR CULTURE Stat Lab 07/18/25 14:45 Completed Urine Triage Profile Stat Lab 07/18/25 14:45 Completed Medication Summary Generic Name Dose Route Start Last Admin Trade Name Uriel PRN Reason Stop Dose Admin Hydrochlorothiazide 25 mg 07/18/25 15:30 07/18/25 15:27 Hydrochlorothiazide 25 Mg Tablet PO 08/17/25 15:29 25 mg DAILY LACY Administration Discontinued Medications Generic Name Dose Route Start Last Admin Trade Name Yamilq PRN Reason Stop Dose Admin Aspirin 324 mg 07/18/25 14:28 07/18/25 15:26 Aspirin 81 Mg Tab.Chew PO 07/18/25 14:29 324 mg STAT ONE Administration Aspirin Confirm 07/18/25 15:01 Aspirin 81 Mg Tab.Chew Administered 07/18/25 15:02 Dose 324 mg .ROUTE .STK-MED ONE Doxycycline Hyclate 100 mg 07/18/25 15:07 07/18/25 15:26 Doxycycline Hyclate 100 Mg Tablet PO 07/18/25 15:08 100 mg STAT ONE Administration Doxycycline Hyclate Confirm 07/18/25 15:26 Doxycycline Hyclate 100 Mg Tablet Administered 07/18/25 15:27 Dose 100 mg .ROUTE .STK-MED ONE Hydrochlorothiazide 25 mg 07/19/25 10:00 Hydrochlorothiazide 25 Mg Tablet PO 08/18/25 09:59 DAILY LACY Hydrochlorothiazide Confirm 07/18/25 15:10 Hydrochlorothiazide 25 Mg Tablet Administered 07/18/25 15:11 Dose 25 mg .ROUTE .STK-MED ONE Lab/Rad Data: Laboratory Result Diagrams 07/18/25 14:45 07/18/25 14:45 Laboratory Results 07/18/25 07/18/25 07/18/25 Range/Units 14:45 14:45 14:45 WBC (4.23-9.07) x10^3/uL RBC (4.63-6.08) x10^6/uL Hgb (13.7-17.5) g/dL Hct (40.1-51.0) % MCV (79.0-92.2) fL MCH (25.7-32.2) pg MCHC (32.3-36.5) g/dL RDW (11.6-14.4) % Plt Count (163-337) x10^3/uL MPV (9.4-12.4) fL Gran % (34.0-67.9) % Immature Gran % (Auto) (0.001-0.429) % Nucleat RBC Rel Count (0.00-0.2) % Eos # (Auto) (0.04-0.54) x10^3/uL Immature Gran # (Auto) (0.001-0.031) x10^3u/L Absolute Lymphs (auto) (1.32-3.57) x10^3/uL Absolute Monos (auto) (0.30-0.82) x10^3/uL Absolute Nucleated RBC (0.00-0.012) x10^3u/L Lymphocytes % (21.8-53.1) % Monocytes % (5.3-12.2) % Eosinophils % (0.8-7.0) % Basophils % (0.2-1.2) % Absolute Granulocytes (1.78-5.38) x10^3/uL Basophils # (0.01-0.08) x10^3/uL Sodium 140 (135-145) mmol/L Potassium 4.0 (3.5-5.1) mmol/L Chloride 108 H (98-107) mmol/L Carbon Dioxide 23 (22-30) mmol/L Anion Gap 13.3 (5-15) MEQ/L BUN 19 (9-20) mg/dL Creatinine 0.74 (0.66-1.25) mg/dL Estimated GFR 103.1 ML/MIN Glucose 84 (74-106) mg/dL Calcium 9.5 (8.4-10.2) mg/dL Magnesium 1.5 L (1.6-2.3) mg/dL Total Bilirubin 0.20 (0.2-1.3) mg/dL AST 26 (17-59) U/L ALT 23 (0-50) U/L Alkaline Phosphatase 68 (38-126) U/L Troponin I < 0.012 (0.000-0.033) ng/mL NT-Pro-B Natriuret Pep 462 (<300) pg/mL Serum Total Protein 6.6 (6.3-8.2) g/dL Albumin 4.0 (3.5-5.0) g/dL Free T4 0.83 (0.78-2.19) ng/dL TSH 3rd Generation 1.475 (0.470-4.680) mIU/L Urine Color (Yellow) Urine Appearance (Clear) Urine pH (4.6-8.0) Ur Specific [place] (1.005-1.030) Urine Protein (Negative) Urine Glucose (UA) (Negative) mg/dL Urine Ketones (Negative) Urine Blood (Negative) Urine Nitrite (Negative) Urine Bilirubin (Negative) Urine Urobilinogen (0.2) mg/dL Ur Leukocyte Esterase (Negative) U Hyaline Cast (Auto) (0-2) /LPF Urine Microscopic RBC (0-5) /HPF Urine Microscopic WBC (0-5) /HPF Ur Epithelial Cells (None Seen) /HPF Urine Bacteria (None Seen) /HPF Urine Culture Reflexed (NO) Urine Opiates Level (NEGATIVE) Ur Methadone (NEGATIVE) Urine Barbiturates (NEGATIVE) Ur Phencyclidine (PCP) (NEGATIVE) Urine Amphetamine (NEGATIVE) U Benzodiazepine Level (NEGATIVE) Urine Cocaine (NEGATIVE) Urine Marijuana (THC) (NEGATIVE) 07/18/25 07/18/25 07/18/25 Range/Units 14:45 14:45 14:45 WBC 5.1 (4.23-9.07) x10^3/uL RBC 4.45 L (4.63-6.08) x10^6/uL Hgb 13.2 L (13.7-17.5) g/dL Hct 39.3 L (40.1-51.0) % MCV 88.3 (79.0-92.2) fL MCH 29.7 (25.7-32.2) pg MCHC 33.6 (32.3-36.5) g/dL RDW 13.3 (11.6-14.4) % Plt Count 206 (163-337) x10^3/uL MPV 9.2 L (9.4-12.4) fL Gran % 58.3 (34.0-67.9) % Immature Gran % (Auto) 0.4 (0.001-0.429) % Nucleat RBC Rel Count 0.0 (0.00-0.2) % Eos # (Auto) 0.28 (0.04-0.54) x10^3/uL Immature Gran # (Auto) 0.02 (0.001-0.031) x10^3u/L Absolute Lymphs (auto) 1.29 L (1.32-3.57) x10^3/uL Absolute Monos (auto) 0.48 (0.30-0.82) x10^3/uL Absolute Nucleated RBC 0.00 (0.00-0.012) x10^3u/L Lymphocytes % 25.5 (21.8-53.1) % Monocytes % 9.5 (5.3-12.2) % Eosinophils % 5.5 (0.8-7.0) % Basophils % 0.8 (0.2-1.2) % Absolute Granulocytes 2.94 (1.78-5.38) x10^3/uL Basophils # 0.04 (0.01-0.08) x10^3/uL Sodium (135-145) mmol/L Potassium (3.5-5.1) mmol/L Chloride (98-107) mmol/L Carbon Dioxide (22-30) mmol/L Anion Gap (5-15) MEQ/L BUN (9-20) mg/dL Creatinine (0.66-1.25) mg/dL Estimated GFR ML/MIN Glucose (74-106) mg/dL Calcium (8.4-10.2) mg/dL Magnesium (1.6-2.3) mg/dL Total Bilirubin (0.2-1.3) mg/dL AST (17-59) U/L ALT (0-50) U/L Alkaline Phosphatase (38-126) U/L Troponin I (0.000-0.033) ng/mL NT-Pro-B Natriuret Pep (<300) pg/mL Serum Total Protein (6.3-8.2) g/dL Albumin (3.5-5.0) g/dL Free T4 (0.78-2.19) ng/dL TSH 3rd Generation (0.470-4.680) mIU/L Urine Color Yellow (Yellow) Urine Appearance Clear (Clear) Urine pH 6.5 (4.6-8.0) Ur Specific [place] 1.010 (1.005-1.030) Urine Protein 30 (Negative) Urine Glucose (UA) Negative (Negative) mg/dL Urine Ketones Negative (Negative) Urine Blood Negative (Negative) Urine Nitrite Negative (Negative) Urine Bilirubin Negative (Negative) Urine Urobilinogen 0.2 (0.2) mg/dL Ur Leukocyte Esterase Negative (Negative) U Hyaline Cast (Auto) NONE SEEN (0-2) /LPF Urine Microscopic RBC 0-2 (0-5) /HPF Urine Microscopic WBC 0-2 (0-5) /HPF Ur Epithelial Cells None Seen (None Seen) /HPF Urine Bacteria None Seen (None Seen) /HPF Urine Culture Reflexed NO (NO) Urine Opiates Level NEGATIVE (NEGATIVE) Ur Methadone NEGATIVE (NEGATIVE) Urine Barbiturates NEGATIVE (NEGATIVE) Ur Phencyclidine (PCP) NEGATIVE (NEGATIVE) Urine Amphetamine NEGATIVE (NEGATIVE) U Benzodiazepine Level NEGATIVE (NEGATIVE) Urine Cocaine NEGATIVE (NEGATIVE) Urine Marijuana (THC) NEGATIVE (NEGATIVE) - Progress Progress: improved Air Movement: good Progress Note: presents to the emergency department complaining of high blood pressure. Patient reports ELIZABETH, dizziness, chest tightness, denies confusion, chest pain, hematuria, or SOB. BP today is 179/87 Patient is currently on medication and taking as prescribed. Doubt CV, AMI, heart failure, renal infarction or failure or other end organ damage. Disposition: Discussed with patient their elevated blood pressure and need for close outpatient management of their hypertension. Will provide a prescription for HCTZ and arrange for the patient to follow up in a primary care clinic Doxy for 7 days r lower lung consolidation Blood Culture(s) Obtained: No Antibiotics given: Yes Counseled pt/family regarding: lab results, diagnosis, need for follow-up, rad results Medical Desision Making - Diagnostic Testing Diagnostic test were ordered, analyzed, and reviewed by me: Yes Radiological Interpretation: Interpreted by me - Risk of complications The pt has a mod risk of morbidity or mortality based on: Need for prescription drug management - Departure Departure Disposition: Home Clinical Impression: Labile hypertension, Pneumonia Condition: Stable Critical Care Time: No Referrals: BROOKLYN FRITZ MD [Primary Care Provider, [facility]] - Follow up/PCP as directed Instructions: Malignant Hypertension (DC) Prescriptions: Doxycycline Hyclate 100 mg PO BID 7 Days #13 tablet hydroCHLOROthiazide [Hydrochlorothiazide] 25 mg PO DAILY 30 Days #30 tablet
[2025-07-18 14:37] VITALS: TEMP 97
[2025-07-18 14:50] LABS: BASOPHIL % 0.8 % (0.2-1.2); Basophil (Absolute #) 0.04 x10^3/uL (0.01-0.08); Eosinophil (Absolute #) 0.28 x10^3/uL (0.04-0.54); Hematocrit 39.3 % (40.1-51.0); Hemoglobin 13.2 g/dL (13.7-17.5); IMMATURE GRAN # 0.02 x10^3u/L (0.001-0.031); IMMATURE GRAN % 0.4 % (0.001-0.429); Lymphocyte (Absolute #) 1.29 x10^3/uL (1.32-3.57); Mean Corpuscular Hemoglobin 29.7 pg (25.7-32.2); Mean Corpuscular Hgb Concent. 33.6 g/dL (32.3-36.5); Monocyte (Absolute #) 0.48 x10^3/uL (0.30-0.82); NUCLEATED RBC # 0.00 x10^3u/L (0.00-0.012); NUCLEATED RBC % 0.0 % (0.00-0.2); Platelet Count 206 x10^3/uL (163-337); Red Blood Count 4.45 x10^6/uL (4.63-6.08); White Blood Count 5.1 x10^3/uL (4.23-9.07)
[2025-07-18 14:57] LABS: Glucose, Urine Negative (Negative); Protein,Urine Dip 30 (Negative); RBC 0-2 /HPF (0-5); WBC 0-2 /HPF (0-5)
[2025-07-18] MEDS ORDERED: BABY ASPIRIN 81 MG CHEW ONE (15:01)
[2025-07-18] MEDS ORDERED: hydroDIURIL 25 MG ONE (15:10)
[2025-07-18 15:17] LABS: Amphetamine,Urine NEGATIVE (NEGATIVE); Barbiturate,Urine NEGATIVE (NEGATIVE); Benzodiazepine,Urine NEGATIVE (NEGATIVE); Cocaine,Urine NEGATIVE (NEGATIVE); Methadone,Urine NEGATIVE (NEGATIVE); Opiate,Urine NEGATIVE (NEGATIVE); PCP,Urine NEGATIVE (NEGATIVE); THC,Urine NEGATIVE (NEGATIVE)
[2025-07-18] MEDS: BABY ASPIRIN 81 MG CHEW PO ONE (15:26)
[2025-07-18] MEDS: hydroDIURIL 25 MG PO SCH (15:27)
[2025-07-18 15:44] LABS: Calcium 9.5 mg/dL (8.4-10.2); Carbon Dioxide 23.0 mmol/L (22-30); Creatinine 1 0.74 mg/dL (0.66-1.25); EST GLOMERULAR FILTRATION RATE 103.1 ML/MIN; Glucose 84.0 mg/dL (74-106); NT PRO BNPII 462.0 pg/mL (<300); Potassium 4.0 mmol/L (3.5-5.1); SGOT/AST 26.0 U/L (17-59); SGPT/ALT 23.0 U/L (0-50); Total Protein 6.6 g/dL (6.3-8.2)
[2025-07-18 17:15] VITALS: BP 171/80; PULSE 62; RESP 18; O2SAT 97
--- NOTE | 2025-07-18 22:49 | XRAY ---
Indication: Chest pressure. Comparison: December 20, 2024 Portable chest unchanged again demonstrating normal heart and lungs with a few bilateral calcified granulomas. Bony thorax intact again with osteopenia and mild degenerative changes. No new/acute findings.
[2025-07-19] MEDS ORDERED: hydroDIURIL 25 MG PO SCH (10:00)
== END 2025-07-18 17:15 | disposition home or self-care (01) ==
LOC: ED 14:14
DX: I10 Essential (primary) hypertension (principal); R09.89 Other specified symptoms and signs involving the circulatory and respiratory systems; J18.9 Pneumonia, unspecified organism; R51.9 Headache, unspecified; R42 Dizziness and giddiness; Z79.84 Long term (current) use of oral hypoglycemic drugs; Z79.4 Long term (current) use of insulin; Z79.85 Long-term (current) use of injectable non-insulin antidiabetic drugs; Z79.02 Long term (current) use of antithrombotics/antiplatelets; Z79.899 Other long term (current) drug therapy